=== PATIENT | male | born 1935 | race Caucasian/White ===

== ENCOUNTER 2016-10-06 13:23 | Inpatient (IN) | payer OTHER, MEDICARE ==
[~2016-10-06] VITALS: Ht 180.3 cm; Wt 68.6 kg
[2016-10-06] VITALS (23 sets, daily range): BP systolic 110–180; BP diastolic 58–85; PULSE 82–90; RESP 18–29; TEMP 97.7–97.9; O2SAT 80–100
[~2016-10-06 13:23] MED LIST: ATEN1TAB73 PO; ATEN50TA PO; B COTAB6 PO; CAPT50TA PO; CHEL50TA; DUONI NEB; FURO20TA PO; GINK120T2; MILK140C; OMEG100010; OMEG5CAP; POTA-243 PO; ROSU10 PO; VITA10007 PO; VITA400C5; WARF-21 PO; WARF-23 PO
[2016-10-06] MEDS ORDERED: RESP: ALBUTEROL 2.5 MG/IPRATROPIUM 0.5 MG NEB (SCH) ONE (13:33)
[2016-10-06] MEDS: RESP: ALBUTEROL 2.5 MG/IPRATROPIUM 0.5 MG NEB (SCH) INH ×4 (13:53→23:21)
--- NOTE | 2016-10-06 13:59 | PD ---
HPI Chief Complaint: Respiratory Distress Time Seen by Provider: 13:29 Travel History International Travel<30 days: No Contact w/Intl Traveler<30days: No Traveled to known affect area: No History of Present Illness HPI 81yo M with PMH of afib on coumadin, COPD on home O2, ?CHF brought in by [facility] initially for fall and generalized weakness. When they arrived, he looked tachypneic and saturating in the mid 80s so they gave him 1 duoneb with improvement. Pt saturating in the mid 80s with RR at 40 breaths per minute initially and placed on 6L NC with improvement of O2 sat to 94%. Pt placed on BIPAP machine with improvement of RR. PFSH Past Medical History Hx Anticoagulant Therapy: Yes (WARFARIN) Atrial Fibrillation: Yes Cancer: No Cardiovascular Problems: Yes High Cholesterol: Yes Chemotherapy: No Congestive Heart Failure: Yes Cerebrovascular Accident: Yes Diabetes: No Diminished Hearing: No Endocrine: No Genitourinary: No Hypertension: Yes Immune Disorder: No Musculoskeletal: Yes (weakness) Neurologic: Yes (hx of stroke) Psychiatric: No Reproductive: No Respiratory: No (this admission ) Past Surgical History Other Surgery: Yes Social History Alcohol Use: Yes (WINE, MIX DRINKS PER NIGHT APPROX 2-3 GLASSES A DAY) Tobacco Use: No Substance Use: Yes (MARIJAUNA US AT NIGHT) Allergies-Medications (Allergen,Severity, Reaction): Coded Allergies: No Known Allergies (Verified , 04/12/16) Reported Meds & Prescriptions Reported Meds & Active Scripts Active Reported Ginkgo Biloba 120 Mg Tab Souris 3 1000 mg (Souris-3 Fatty Acids) 1 Cap Cap Milk Thistle 140 Mg Cap BID Warfarin 5 Mg Tab 5 Mg PO DAILY Klor-Con 10 (Potassium Chloride) 10 Meq Tab 10 Meq PO DAILY Atenolol 50 Mg Tab 50 Mg PO BID Captopril 50 Mg Tab 50 Mg PO TIDAC Take 1 hour before meals. Furosemide 20 Mg Tab 20 Mg PO DAILY Review of Systems Except as stated in HPI: all other systems reviewed are Neg Physical Exam Narrative GENERAL: 81yo M in moderate distress. SKIN: Warm and dry. HEAD: +Ecchymoses midparietal scalp. EYES: Pupils equal and round. No scleral icterus. No injection or drainage. ENT: No nasal bleeding or discharge. Mucous membranes pink and moist. NECK: Trachea midline. No JVD. CARDIOVASCULAR: Regular rate and rhythm. No murmur appreciated. RESPIRATORY: + accessory muscle use. Decreased breath sounds in lower lungs bilaterally. RR: 40 breaths per minute. GASTROINTESTINAL: Abdomen soft, non-tender, nondistended. No rebound tenderness or guarding. : +Scrotal edema. MUSCULOSKELETAL: No obvious deformities. No clubbing. No cyanosis. +Bilateral lower ext edema. NEUROLOGICAL: Awake and alert. No obvious cranial nerve deficits. Motor grossly within normal limits. Normal speech. Data Data Last Documented VS Vital Signs Date Time Temp Pulse Resp B/P Pulse Ox O2 Delivery O2 Flow Rate FiO2 10/06/16 15:45 88 20 149/70 94 BiPAP 10/06/16 14:23 35 10/06/16 13:39 2 10/06/16 13:31 97.9 Orders Albuterol-Ipratropium Neb (Duoneb Neb) (10/06/16 13:33) Complete Blood Count With Diff (10/06/16 13:49) Basic Metabolic Panel (Bmp) (10/06/16 13:49) B-Type Natriuretic Peptide (10/06/16 13:49) Act Partial Throm Time (Ptt) (10/06/16 13:49) Prothrombin Time / Inr (Pt) (10/06/16 13:49) Magnesium (Mg) (10/06/16 13:49) Ckmb (Isoenzyme) Profile (10/06/16 13:49) Troponin I (10/06/16 13:49) Arterial Blood Gas (Abg) (10/06/16 13:49) Urinalysis - C+S If Indicated (10/06/16 13:49) Blood Culture (10/06/16 13:49) Iv Access Insert/Monitor (10/06/16 13:49) Ecg Monitoring (10/06/16 13:49) Oximetry (10/06/16 13:49) Oxygen Administration (10/06/16 13:49) Chest, Single Ap (10/06/16 13:49) Sodium Chloride 0.9% Flush (Ns Flush) (10/06/16 14:00) Methylprednisolone So Succ Inj (Solumedr (10/06/16 14:00) Albuterol-Ipratropium Neb (Duoneb Neb) (10/06/16 14:00) Resp Bipap / Cpap Non Invas Vt (10/06/16 13:49) Ct Brain W/O Iv Contrast(Rout) (10/06/16 ) Ct Cerv Spine W/O Contrast (10/06/16 ) Lactic Acid Sepsis Protocol (10/06/16 13:51) Furosemide Inj (Lasix Inj) (10/06/16 14:15) Electrocardiogram (10/06/16 13:40) Admit Order (Ed Use Only) (10/06/16 16:07) Arterial Blood Gas (Abg) (10/06/16 ) Labs Laboratory Tests Test 10/06/16 10/06/16 10/06/16 13:51 14:10 15:10 White Blood Count 6.4 TH/MM3 Red Blood Count 3.75 MIL/MM3 Hemoglobin 12.3 GM/DL Hematocrit 38.2 % Mean Corpuscular Volume 101.8 FL Mean Corpuscular Hemoglobin 32.7 PG Mean Corpuscular Hemoglobin 32.1 % Concent Red Cell Distribution Width 15.4 % Platelet Count 101 TH/MM3 Mean Platelet Volume 8.8 FL Neutrophils (%) (Auto) 76.8 % Lymphocytes (%) (Auto) 10.7 % Monocytes (%) (Auto) 8.3 % Eosinophils (%) (Auto) 1.6 % Basophils (%) (Auto) 2.6 % Neutrophils # (Auto) 4.9 TH/MM3 Lymphocytes # (Auto) 0.7 TH/MM3 Monocytes # (Auto) 0.5 TH/MM3 Eosinophils # (Auto) 0.1 TH/MM3 Basophils # (Auto) 0.2 TH/MM3 CBC Comment DIFF FINAL Differential Comment Prothrombin Time 14.2 SEC Prothromb Time International 1.3 RATIO Ratio Activated Partial 30.1 SEC Thromboplast Time Sodium Level 146 MEQ/L Potassium Level 4.6 MEQ/L Chloride Level 102 MEQ/L Carbon Dioxide Level 39.7 MEQ/L Anion Gap 4 MEQ/L Blood Urea Nitrogen 11 MG/DL Creatinine 0.77 MG/DL Estimat Glomerular Filtration 97 ML/MIN Rate Random Glucose 101 MG/DL Lactic Acid Level 1.1 mmol/L Calcium Level 8.4 MG/DL Magnesium Level 2.5 MG/DL Total Creatine Kinase 73 U/L Troponin I 0.03 NG/ML B-Type Natriuretic Peptide 154 PG/ML Prealbumin 12 MG/DL Blood Gas Puncture Site LT RADIAL Blood Gas Patient Temperature 98.6 Blood Gas HCO3 38 mmol/L Blood Gas Base Excess 11.4 mmol/L Blood Gas Oxygen Saturation 89 % Arterial Blood pH 7.31 Arterial Blood Partial 78 mmHG Pressure CO2 Arterial Blood Partial 64 mmHG Pressure O2 Arterial Blood Oxygen Content 15.0 Vol % Arterial Blood 2.1 % Carboxyhemoglobin Arterial Blood Methemoglobin 1.0 % Blood Gas Hemoglobin 12.0 G/DL Oxygen Delivery Device BIPAP Blood Gas Ventilator Setting 15 IPAP/5 EPAP Blood Gas Inspired Oxygen 35 % Urine Collection Type CLEAN CATCH Urine Color YELLOW Urine Turbidity CLEAR Urine pH 5.5 Urine Specific [place] 1.012 Urine Protein NEG mg/dL Urine Glucose (UA) NEG mg/dL Urine Ketones NEG mg/dL Urine Occult Blood TRACE Urine Nitrite NEG Urine Bilirubin NEG Urine Leukocyte Esterase NEG Urine RBC 4-9 /hpf Urine Squamous Epithelial 0-5 /hpf Cells Microscopic Urinalysis Comment CULT NOT INDICATED Urine Collection Time 15:10 MDM Medical Decision Making Medical Screen Exam Complete: Yes Emergency Medical Condition: Yes Interpretation(s) EKG: Afib at 88bpm. RAD. RBBB. Differential Diagnosis CHF exacerbation vs. COPD exacerbation vs. Pneumonia vs. ACS vs. ICH Narrative Course 81yo M presents to the ED s/p fall. Pt found to be in respiratory distress and placed on BIPAP immediately. Pt improving on BIPAP with RR improving to 30 from 40. Pt has marked edema and crackles on lungs with decreased breath sounds so lasix 40mg IV given. Labs reviewed, no leukocytosis. H/H low at 12.3 /38.2. Lactic acid 1.1. BNP 154. Troponin 0.03. CXR showed opacification of right hemithorax. Combination of right lung atelectasis and large right effusion. As per our record, pt had right thoracentesis 08/05/16 with removal of 2000cc of serosanguinous fluid. As per daughter, pt gets thoracentesis every 3 months. As per our records, pt also had thoracentesis 04/14/16 with removal of 2.2 liters and bronchoscopy 04/17/16 that was negative. UA negative. INR subtherapeutic at 1.3. Thoracentesis was performed at bedside by patient financial representative Dr. Guerrero with removal of 3200cc of fluid. Sign out to next team to follow up post procedure CXR. Critical Care Narrative Aggregate critical care time was 90 minutes. Time to perform other separately billable procedures was not included in the critical care time. My time did not include minutes spent treating any other patients simultaneously or on activities that did not directly contribute to the patient's treatment. The services I provided to this patient were to treat and/or prevent clinically significant deterioration that could result in: cardiovascular collapse or . I provided critical care services requiring my management, as noted below: Chart data review, documentation time, medication orders and management, vital sign assessments/reviewing monitor data, ordering and reviewing lab tests, ordering and interpreting/reviewing x-rays and diagnostic studies, care of the patient and discussion of the patient with the admitting physicians. Diagnosis Primary Impression: Pleural effusion Admitting Information Admitting Physician Requests: Stephanie Santos DO Oct 06, 2016 13:59
[2016-10-06] MEDS ORDERED: SODIUM CHLORIDE 0.9% FLUSH 5 ML FLUSH IVF PRN (14:00)
[2016-10-06] MEDS ORDERED: methylPREDNISolone SOD SUCC 125 MG/2 ML VIAL IVP ONE (14:00)
[2016-10-06 14:14] LABS: AUTOMATED NEUTROPHIL # 4.9 TH/MM3 (1.8-7.7); BASOPHIL # 0.2 TH/MM3 (0-0.2); BASOPHIL % 2.6 % (0.0-2.0); EOSINOPHIL # 0.1 TH/MM3 (0-0.4); EOSINOPHIL % 1.6 % (0.0-4.0); HEMATOCRIT 38.2 % (39.0-51.0); LYMPH % 10.7 % (9.0-44.0); LYMPHOCYTE # 0.7 TH/MM3 (1.0-4.8); MEAN CELL VOLUME 101.8 FL (80.0-100.0); MEAN CORPUSCULAR HEMOGLOBIN 32.7 PG (27.0-34.0); MEAN CORPUSCULAR HGB CONC 32.1 % (32.0-36.0); MONO % 8.3 % (0.0-8.0); NEUT % 76.8 % (16.0-70.0); PLATELET COUNT 101 TH/MM3 (150-450); RED BLOOD COUNT 3.75 MIL/MM3 (4.50-5.90); RED CELL DISTRIBUTION WIDTH 15.4 % (11.6-17.2); WHITE BLOOD COUNT 6.4 TH/MM3 (4.0-11.0)
[2016-10-06 14:15] LABS: HEMO FLAGS DIFF FINAL
[2016-10-06] MEDS ORDERED: FUROSEMIDE 40 MG/4 ML VIAL IV PUSH ONE (14:15)
[2016-10-06 14:18] LABS: BLOOD GAS BASE EXCESS 11.4 mmol/L (-2-2); BLOOD GAS CARBOXYHEMOGLOBIN 2.1 % (0-4); BLOOD GAS HCO3 38 mmol/L (22-26); BLOOD GAS O2 HGB SATURATION 89 % (90-100); BLOOD GAS PCO2 78 mmHG (38-42); BLOOD GAS PO2 64 mmHG (61-120); CRITICAL VALUE YES; DRAW SITE LT RADIAL; FIO2 35 %; NUMBER OF ARTERIAL PUNCTURES 1; OXYGEN DEVICE BIPAP; STAT YES; TEMP CORR TO 98.6; ULNAR PULSE PRESENT
[2016-10-06 14:20] LABS: VENT SETTINGS 15 IPAP/5 EPAP
[2016-10-06 14:21] LABS: POTASSIUM 4.6 MEQ/L (3.5-5.1)
[2016-10-06 14:24] LABS: BICARBONATE 39.7 MEQ/L (21.0-32.0); MAGNESIUM 2.5 MG/DL (1.5-2.5)
[2016-10-06 14:28] LABS: APTT (PATIENT) 30.1 SEC (24.3-30.1); INTERNATIONAL NORMALIZED RATIO 1.3 RATIO; PROTHROMBIN TIME - PATIENT 14.2 SEC (9.8-11.6)
[2016-10-06 15:20] LABS: BLOOD, URINE TRACE (NEG); GLUCOSE,URINE NEG (NEG); KETONE, URINE NEG (NEG); NITRITE,URINE NEG (NEG); PH, URINE 5.5 (5.0-8.5)
[2016-10-06 15:26] LABS: METHOD OF COLLECTION CLEAN CATCH
[2016-10-06 15:27] LABS: COMMENT (UR) CULT NOT INDICATED; CULTURE IF INDICATED CULT NOT INDICATED; SQUAMOUS EPITHELIAL CELL URINE 0-5 /hpf (0-5); URINE COLOR YELLOW (YELLW/STRAW)
--- NOTE | 2016-10-06 15:48 | RADHPO ---
EXAM DATE/TIME: 10/06/2016 15:12 [facility] COMPARISON: No previous studies available for comparison. INDICATIONS : Short of breath MEDICAL HISTORY : None. SURGICAL HISTORY : None. ENCOUNTER: Initial ACUITY: 1 day PAIN SCORE: 0/10 LOCATION: Bilateral chest FINDINGS: A single view of the chest demonstrates opacification of the right hemithorax with large right effusi on. There is also some left basilar opacity. No pneumothorax. CONCLUSION: 1. Opacification of right hemithorax which has worsened since exam from earlier today. This probably represents a combination of right lung atelectasis and large right effusion. Mild left basilar airspa ce disease. Chaka Campos MD on October 06, 2016 at 15:45 Board Certified Radiologist. This report was verified electronically.
--- NOTE | 2016-10-06 16:55 | RADHPO ---
EXAM DATE/TIME: 10/06/2016 16:27 [facility] COMPARISON: CT BRAIN W/O CONTRAST, April 12, 2016, 10:06. INDICATIONS : Fall today, general weakness. RADIATION DOSE: 62.12 CTDIvol (mGy) MEDICAL HISTORY : Stroke. Congestive heart failure. Chronic obstructive pulmonary disease. SURGICAL HISTORY : None. ENCOUNTER: Initial ACUITY: 1 day PAIN SCALE: 4/10 LOCATION: Bilateral head TECHNIQUE: Multiple contiguous axial images were obtained of the head. Using automated exposure control and adj ustment of the mA and/or kV according to patient size, radiation dose was kept as low as reasonably a chievable to obtain optimal diagnostic quality images. FINDINGS: No acute mass, hemorrhage or midline shift. No hydrocephalus. Small chronic lacunar infarct anterior limb right internal capsule stable since prior study. There is cortical volume loss and white matter ischemic changes. No recent infarct identified. CONCLUSION: 1. No acute intracranial abnormalities. Stable small lacunar infarct on the right as above. Chaka Campos MD on October 06, 2016 at 16:52 Board Certified Radiologist. This report was verified electronically.
--- NOTE | 2016-10-06 17:04 | RADHPO ---
EXAM DATE/TIME: 10/06/2016 16:27 [facility] COMPARISON: No previous studies available for comparison. INDICATIONS : Fall today, general weakness. RADIATION DOSE: 26.22 CTDIvol (mGy) MEDICAL HISTORY : Stroke. Chronic obstructive pulmonary disease. Congestive heart failure. SURGICAL HISTORY : None. ENCOUNTER: Initial ACUITY: 1 day PAIN SCALE: 2/10 LOCATION: Bilateral neck TECHNIQUE: Volumetric scanning of the cervical spine was performed. Multiplanar reconstructions in the sagittal, coronal and oblique axial planes were performed. Using automated exposure control and adjustment o f the mA and/or kV according to patient size, radiation dose was kept as low as reasonably achievable to obtain optimal diagnostic quality images. FINDINGS: VERTEBRAE: Normal vertebral body height. ALIGNMENT: No evidence of subluxation. C2-C3: The bony spinal canal is normal in size. No evidence of disc bulge or herniation. The neural forami na are bilaterally patent. C3-C4: The bony spinal canal is normal in size. No evidence of disc bulge or herniation. The neural forami na are bilaterally patent. C4-C5: The bony spinal canal is normal in size. No evidence of disc bulge or herniation. The neural forami na are bilaterally patent. C5-C6: The bony spinal canal is normal in size. No evidence of disc bulge or herniation. The neural forami na are bilaterally patent. C6-C7: The bony spinal canal is normal in size. No evidence of disc bulge or herniation. The neural forami na are bilaterally patent. C7-T1: The bony spinal canal is normal in size. No evidence of disc bulge or herniation. The neural forami na are bilaterally patent. CONCLUSION: 1. No acute findings in the cervical spine. Moderate degenerative disc disease but no significant can al stenosis. Large right pleural effusion noted at the right lung apex. Chaka Campos MD on October 06, 2016 at 17:00 Board Certified Radiologist. This report was verified electronically.
[2016-10-06 17:30] LABS: BLOOD GAS BASE EXCESS 12.3 mmol/L (-2-2); BLOOD GAS CARBOXYHEMOGLOBIN 2.2 % (0-4); BLOOD GAS HCO3 39 mmol/L (22-26); BLOOD GAS METHEMOGLOBIN 1.1 % (0-2); BLOOD GAS O2 HGB SATURATION 90 % (90-100); BLOOD GAS OXYGEN CONTENT 15.2 Vol % (12.0-20.0); BLOOD GAS PCO2 76 mmHG (38-42); BLOOD GAS PO2 69 mmHG (61-120); CRITICAL VALUE YES; FIO2 40 %; OXYGEN DEVICE BIPAP; TEMP CORR TO 98.6
[2016-10-06 17:31] LABS: DRAW SITE LT RADIAL; NUMBER OF ARTERIAL PUNCTURES 1; STAT NO; ULNAR PULSE PRESENT; VENT SETTINGS 15 IPAP/5 EPAP
--- NOTE | 2016-10-06 17:44 | HHI.HP ---
[facility] Service Critical Care Medicine Primary Care Physician Jayce De Souza MD Admission Diagnosis Hypoxic respiratory failure secondary to right pleural effusion Diagnosis: Travel History International Travel<30 Days: No Contact w/Intl Traveler <30 Da: No Traveled to Known Affected Are: No History of Present Illness 81yo M with PMH of afib on coumadin, COPD on home O2, ?CHF brought in by [facility] initially for fall and generalized weakness. When they arrived, he looked tachypneic and saturating in the mid 80s so they gave him 1 duoneb with improvement. Pt saturating in the mid 80s with RR at 40 breaths per minute initially and placed on 6L NC with improvement of O2 sat to 94%. Pt placed on BIPAP machine with minimal improvement of RR.CXR - large pleural effussion on Right Review of Systems ROS Unable to obtain, patient on FM BiPAP Past Family Social History Allergies: Coded Allergies: No Known Allergies (Verified , 04/12/16) Past Medical History Hypertension Hyperlipidemia Chronic atrial fibrillation Congestive heart failure, unknown whether systolic or diastolic Skin cancer Past Surgical History Left knee surgery 1960 when he was in the Reported Medications Reported Meds & Active Scripts Active Reported Ginkgo Biloba 120 Mg Tab Colrain 3 1000 mg (Colrain-3 Fatty Acids) 1 Cap Cap Milk Thistle 140 Mg Cap BID Warfarin 5 Mg Tab 5 Mg PO DAILY Klor-Con 10 (Potassium Chloride) 10 Meq Tab 10 Meq PO DAILY Atenolol 50 Mg Tab 50 Mg PO BID Captopril 50 Mg Tab 50 Mg PO TIDAC Take 1 hour before meals. Furosemide 20 Mg Tab 20 Mg PO DAILY Active Ordered Medications Current Medications Medications (Trade) Dose Ordered Sig/Sonia Route PRN Reason Start Time Stop Time Status Last Admin Dose Admin IV Flush (NS Flush) 2 ml UNSCH PRN IV FLUSH FLUSH AFTER USING IV ACCESS 10/06/16 17:45 IV Flush (NS Flush) 2 ml BID IV FLUSH 10/06/16 21:00 Acetaminophen (Tylenol) 650 mg Q6H PRN PO PAIN 1-5 AND/OR FEVER >101F 10/06/16 17:45 Morphine Sulfate (Morphine Inj) 2 mg Q2H PRN IV PAIN SCALE 6 TO 10 10/06/16 17:45 Famotidine (Pepcid Inj) 20 mg Q12HR IV PUSH 10/06/16 21:00 Lorazepam (Ativan Inj) 2 mg Q4H PRN IV Agitation/Sedation 10/06/16 17:45 Ondansetron HCl (Zofran Inj) 4 mg Q6H PRN IV NAUSEA OR VOMITING 10/06/16 17:45 Metoclopramide HCl (Reglan Inj) 10 mg Q6H PRN IV NAUSEA OR VOMITING 10/06/16 17:45 Docusate Sodium (Colace) 100 mg BID PO 10/06/16 21:00 Zolpidem Tartrate (Ambien) 5 mg HS PRN PO INSOMNIA 10/06/16 17:45 Heparin Sodium (Porcine) (Heparin Inj) 5,000 units Q8HR SQ 10/06/16 22:00 Miscellaneous Information 1 Q361D XX 10/06/16 17:45 Chlorhexidine Gluconate (Chlorhexidine 2% Cloth) 3 pack Taper DAILY@04 TOP 10/07/16 04:00 10/03/17 03:59 Chlorhexidine Gluconate (Chlorhexidine 2% Cloth) 3 pack UNSCH PRN TOP HYGIENIC CARE 10/06/16 17:45 Atenolol (Tenormin) 50 mg BID PO 10/06/16 21:00 Captopril (Capoten) 50 mg TIDAC PO 10/07/16 08:00 Furosemide (Lasix) 20 mg DAILY PO 10/07/16 09:00 Warfarin Sodium 5 mg 5 mg DAILY@16 PO 10/07/16 16:00 Pharmacy Profile Note (Coumadin Consult Pharmacy) 0 ml @ 0 mls/hr UNSCH OTHER 10/06/16 17:45 Family History noncontributory Physical Exam Vital Signs Vital Signs Date Time Temp Pulse Resp B/P Pulse Ox O2 Delivery O2 Flow Rate FiO2 10/06/16 16:51 88 29 169/85 97 BiPAP 40 10/06/16 16:19 Venturi Mask 35 10/06/16 15:45 88 20 149/70 94 BiPAP 10/06/16 15:15 88 20 175/77 BiPAP 10/06/16 14:45 82 20 141/73 96 BiPAP 10/06/16 14:23 100 BiPAP 35 10/06/16 14:21 85 19 114/65 100 BiPAP 10/06/16 14:08 99 BiPAP 45 10/06/16 13:45 96 50 10/06/16 13:40 98 BiPAP 50 10/06/16 13:39 24 82 Nasal Cannula 2 10/06/16 13:31 97.9 86 26 180/81 82 10/06/16 13:30 80 Nasal Cannula 2.00 Physical Exam GENERAL: frail elderly patient on FM BiPAP. SKIN: Warm and dry. HEAD: Normocephalic. EYES: No scleral icterus. No injection or drainage. NECK: Supple, trachea midline. No JVD or lymphadenopathy. CARDIOVASCULAR: Regular rate and rhythm without murmurs, gallops, or rubs. RESPIRATORY: Breath sounds equal bilaterally. No accessory muscle use. GASTROINTESTINAL: Abdomen soft, non-tender, nondistended. MUSCULOSKELETAL: No cyanosis, or edema. BACK: Nontender without obvious deformity. No CVA tenderness. Laboratory Laboratory Tests Test 10/06/16 10/06/16 10/06/16 10/06/16 13:51 14:10 15:10 17:22 White Blood Count 6.4 Red Blood Count 3.75 Hemoglobin 12.3 Hematocrit 38.2 Mean Corpuscular Volume 101.8 Mean Corpuscular Hemoglobin 32.7 Mean Corpuscular Hemoglobin 32.1 Concent Red Cell Distribution Width 15.4 Platelet Count 101 Mean Platelet Volume 8.8 Neutrophils (%) (Auto) 76.8 Lymphocytes (%) (Auto) 10.7 Monocytes (%) (Auto) 8.3 Eosinophils (%) (Auto) 1.6 Basophils (%) (Auto) 2.6 Neutrophils # (Auto) 4.9 Lymphocytes # (Auto) 0.7 Monocytes # (Auto) 0.5 Eosinophils # (Auto) 0.1 Basophils # (Auto) 0.2 CBC Comment DIFF FINAL Differential Comment Prothrombin Time 14.2 Prothromb Time International 1.3 Ratio Activated Partial 30.1 Thromboplast Time Sodium Level 146 Potassium Level 4.6 Chloride Level 102 Carbon Dioxide Level 39.7 Anion Gap 4 Blood Urea Nitrogen 11 Creatinine 0.77 Estimat Glomerular Filtration 97 Rate Random Glucose 101 Lactic Acid Level 1.1 Calcium Level 8.4 Magnesium Level 2.5 Total Creatine Kinase 73 Troponin I 0.03 B-Type Natriuretic Peptide 154 Blood Gas Puncture Site LT RADIAL LT RADIAL Blood Gas Patient Temperature 98.6 98.6 Blood Gas HCO3 38 39 Blood Gas Base Excess 11.4 12.3 Blood Gas Oxygen Saturation 89 90 Arterial Blood pH 7.31 7.33 Arterial Blood Partial 78 76 Pressure CO2 Arterial Blood Partial 64 69 Pressure O2 Arterial Blood Oxygen Content 15.0 15.2 Arterial Blood 2.1 2.2 Carboxyhemoglobin Arterial Blood Methemoglobin 1.0 1.1 Blood Gas Hemoglobin 12.0 12.0 Oxygen Delivery Device BIPAP BIPAP Blood Gas Ventilator Setting 15 IPAP/5 EPAP 15 IPAP/5 EPAP Blood Gas Inspired Oxygen 35 40 Urine Collection Type CLEAN CATCH Urine Color YELLOW Urine Turbidity CLEAR Urine pH 5.5 Urine Specific [place] 1.012 Urine Protein NEG Urine Glucose (UA) NEG Urine Ketones NEG Urine Occult Blood TRACE Urine Nitrite NEG Urine Bilirubin NEG Urine Leukocyte Esterase NEG Urine RBC 4-9 Urine Squamous Epithelial 0-5 Cells Microscopic Urinalysis Comment CULT NOT INDICATED Urine Collection Time 15:10 Date/Time Procedure Status Source Growth 10/06/16 13:57 Aerobic Blood Culture Received Blood Peripheral Pending 10/06/16 13:57 Anaerobic Blood Culture Received Blood Peripheral Pending Result Diagram: 10/06/16 1351 10/06/16 1351 Imaging Last 24 hours Impressions Chest X-Ray 10/06/16 1349 Signed Impressions: Service Date/Time: Thursday, October 06, 2016 15:12 - CONCLUSION: 1. Opacification of right hemithorax which has worsened since exam from earlier today. This probably represents a combination of right lung atelectasis and large right effusion. Mild left basilar airspace disease. Chaka Campos MD Head CT 10/06/16 0000 Signed Impressions: Service Date/Time: Thursday, October 06, 2016 16:27 - CONCLUSION: 1. No acute intracranial abnormalities. Stable small lacunar infarct on the right as above. Chaka Campos MD Chest X-Ray 10/06/16 0000 Signed Impressions: Service Date/Time: Thursday, October 06, 2016 22:19 - CONCLUSION: 1. Placement of right chest tube with resolution of right pneumothorax. Small right effusion present. Chaka Campos MD Chest X-Ray 10/06/16 0000 Signed Impressions: Service Date/Time: Thursday, October 06, 2016 19:26 - CONCLUSION: 1. Status post right thoracentesis with moderate right-sided pneumothorax and patchy airspace disease in the right lung. Chaka Campos MD Cervical Spine CT 10/06/16 0000 Signed Impressions: Service Date/Time: Thursday, October 06, 2016 16:27 - CONCLUSION: 1. No acute findings in the cervical spine. Moderate degenerative disc disease but no significant canal stenosis. Large right pleural effusion noted at the right lung apex. Chaka Campos MD Assessment and Plan Assessment and Plan Respiratory failure - large pleural effussion - Thoracenthesis - Chemistry analysis to follow - Pulmonary consult - Duonebs History of CHF - ACEi - Diuretics A.Fib - Atenolo - Rate controlled - Pharmacy consult for coumadine Pneumothorax - iatrogenic post Thracentesis - CT by ED attending - appreciated - CXR to follow DVT/GI prophylaxis - Heparin subQ/coumadine/pepcid Critical Care: The total critical care time was 35 minutes. Time to perform other separately billable procedures was not included in the critical care time. Kyler Guerrero MD Oct 06, 2016 17:43
[2016-10-06] MEDS ORDERED: METOCLOPRAMIDE HCL 10 MG/2 ML VIAL IV PRN (17:45)
[2016-10-06] MEDS ORDERED: MISCELLANEOUS NURSING INFORMATION XX SCH (17:45)
[2016-10-06] MEDS ORDERED: RESP: ALBUTEROL 2.5 MG/IPRATROPIUM 0.5 MG NEB (PRN) INH (17:45)
[2016-10-06] MEDS ORDERED: SODIUM CHLORIDE 0.9% FLUSH 5 ML FLUSH IV FLUSH PRN (17:45)
[2016-10-06] MEDS ORDERED: CHLORHEXIDINE GLUCONATE 2 % 1 PACK (2 CLOTHS) TOP PRN (17:45)
[2016-10-06] MEDS ORDERED: LORazepam 2 MG/ML VIAL IV PRN (17:45)
[2016-10-06] MEDS ORDERED: ZOLPIDEM TARTRATE 5 MG TAB PO PRN (17:45)
[2016-10-06] MEDS ORDERED: MORPHINE SULFATE 4 MG/ML INJ IV PRN (17:45)
[2016-10-06] MEDS ORDERED: ONDANSETRON HCL 4 MG/2 ML VIAL IV PRN (17:45)
[2016-10-06] MEDS ORDERED: WARFARIN SOD 7.5 MG TAB PO ONE (18:15)
[2016-10-06 18:53] LABS: PLEURAL FLUID SPECIFIC GRAVITY 1.019
--- NOTE | 2016-10-06 20:11 | RADHPO ---
EXAM DATE/TIME: 10/06/2016 19:26 [facility] COMPARISON: No previous studies available for comparison. INDICATIONS : Short of breath/post thoracentesis. MEDICAL HISTORY : Hypercholesterolemia. Congestive heart failure. Chronic obstructive pulmonary disease. Stroke,A-f ib SURGICAL HISTORY : Right knee surgery ENCOUNTER: Initial ACUITY: 1 day PAIN SCORE: 4/10 LOCATION: Bilateral chest FINDINGS: Patient is status post right thoracentesis. Right pleural effusion has been mostly drained. There is a moderate size right pneumothorax remaining with some patchy airspace disease in right lung. Mild le ft basilar opacity. Cardiomegaly. CONCLUSION: 1. Status post right thoracentesis with moderate right-sided pneumothorax and patchy airspace disease in the right lung. Chaka Campos MD on October 06, 2016 at 20:08 Board Certified Radiologist. This report was verified electronically.
[2016-10-06] MEDS ORDERED: LIDOCAINE HCL 1% PF 30 ML VIAL INFIL ONE (20:30)
[2016-10-06 20:46] LABS: CHOLESTEROL, PLEURAL FLUID LESS THAN 50 MG/DL; TOTAL PROTEIN,PLEURAL FLUID 2.4 GM/DL
[2016-10-06] MEDS ORDERED: ONDANSETRON HCL 4 MG/2 ML VIAL IV PUSH ONE (21:15)
[2016-10-06] MEDS ORDERED: MORPHINE SULFATE 4 MG/ML INJ IV PUSH ONE (21:15)
[2016-10-06 22:30] LABS: INDIRECT BILIRUBIN 1.2 MG/DL (0.0-0.8); TOTAL BILIRUBIN ADULT 1.8 MG/DL (0.2-1.0)
--- NOTE | 2016-10-06 22:32 | RADHPO ---
EXAM DATE/TIME: 10/06/2016 22:19 [facility] COMPARISON: CHEST SINGLE AP, October 06, 2016, 19:26. INDICATIONS : Post chest tube insertion. MEDICAL HISTORY : Hypercholesterolemia. Congestive heart failure. Chronic obstructive pulmonary disease. SURGICAL HISTORY : Right knee surgery ENCOUNTER: Subsequent ACUITY: 1 day PAIN SCORE: 4/10 LOCATION: Bilateral chest FINDINGS: A single view of the chest demonstrates small caliber right chest tube. Resolution of previous right pneumothorax. There is right basilar airspace disease and a small right effusion. There is also left basilar airspace disease with cardiomegaly. CONCLUSION: 1. Placement of right chest tube with resolution of right pneumothorax. Small right effusion present. Chaka Campos MD on October 06, 2016 at 22:29 Board Certified Radiologist. This report was verified electronically.
--- NOTE | 2016-10-06 22:39 | PD ---
Physical Exam Date Seen by Provider: Oct 06, 2016 Time Seen by Provider: 20:00 Narrative accepted for follow up of post procedure CXR; patient is admitted GENERAL: Elderly frail-appearing male with BiPAP in place no acute distress no respiratory distress SKIN: Warm and dry. HEAD: Normocephalic. EYES: No scleral icterus. No injection or drainage. NECK: Supple, trachea midline. No JVD or lymphadenopathy. CARDIOVASCULAR: Regular rate and rhythm without murmurs, gallops, or rubs. RESPIRATORY: Breath sounds equal bilaterally to anterior auscultation. No accessory muscle use. Data Data Last Documented VS Vital Signs Date Time Temp Pulse Resp B/P Pulse Ox O2 Delivery O2 Flow Rate FiO2 10/06/16 15:45 88 20 149/70 94 BiPAP 10/06/16 14:23 35 10/06/16 13:39 2 10/06/16 13:31 97.9 Orders Albuterol-Ipratropium Neb (Duoneb Neb) (10/06/16 13:33) Complete Blood Count With Diff (10/06/16 13:49) Basic Metabolic Panel (Bmp) (10/06/16 13:49) B-Type Natriuretic Peptide (10/06/16 13:49) Act Partial Throm Time (Ptt) (10/06/16 13:49) Prothrombin Time / Inr (Pt) (10/06/16 13:49) Magnesium (Mg) (10/06/16 13:49) Ckmb (Isoenzyme) Profile (10/06/16 13:49) Troponin I (10/06/16 13:49) Arterial Blood Gas (Abg) (10/06/16 13:49) Urinalysis - C+S If Indicated (10/06/16 13:49) Blood Culture (10/06/16 13:49) Iv Access Insert/Monitor (10/06/16 13:49) Ecg Monitoring (10/06/16 13:49) Oximetry (10/06/16 13:49) Oxygen Administration (10/06/16 13:49) Chest, Single Ap (10/06/16 13:49) Sodium Chloride 0.9% Flush (Ns Flush) (10/06/16 14:00) Methylprednisolone So Succ Inj (Solumedr (10/06/16 14:00) Albuterol-Ipratropium Neb (Duoneb Neb) (10/06/16 14:00) Resp Bipap / Cpap Non Invas Vt (10/06/16 13:49) Ct Brain W/O Iv Contrast(Rout) (10/06/16 ) Ct Cerv Spine W/O Contrast (10/06/16 ) Lactic Acid Sepsis Protocol (10/06/16 13:51) Furosemide Inj (Lasix Inj) (10/06/16 14:15) Electrocardiogram (10/06/16 13:40) Admit Order (Ed Use Only) (10/06/16 16:07) Arterial Blood Gas (Abg) (10/06/16 ) Labs Laboratory Tests Test 10/06/16 10/06/16 10/06/16 13:51 14:10 15:10 White Blood Count 6.4 TH/MM3 Red Blood Count 3.75 MIL/MM3 Hemoglobin 12.3 GM/DL Hematocrit 38.2 % Mean Corpuscular Volume 101.8 FL Mean Corpuscular Hemoglobin 32.7 PG Mean Corpuscular Hemoglobin 32.1 % Concent Red Cell Distribution Width 15.4 % Platelet Count 101 TH/MM3 Mean Platelet Volume 8.8 FL Neutrophils (%) (Auto) 76.8 % Lymphocytes (%) (Auto) 10.7 % Monocytes (%) (Auto) 8.3 % Eosinophils (%) (Auto) 1.6 % Basophils (%) (Auto) 2.6 % Neutrophils # (Auto) 4.9 TH/MM3 Lymphocytes # (Auto) 0.7 TH/MM3 Monocytes # (Auto) 0.5 TH/MM3 Eosinophils # (Auto) 0.1 TH/MM3 Basophils # (Auto) 0.2 TH/MM3 CBC Comment DIFF FINAL Differential Comment Prothrombin Time 14.2 SEC Prothromb Time International 1.3 RATIO Ratio Activated Partial 30.1 SEC Thromboplast Time Sodium Level 146 MEQ/L Potassium Level 4.6 MEQ/L Chloride Level 102 MEQ/L Carbon Dioxide Level 39.7 MEQ/L Anion Gap 4 MEQ/L Blood Urea Nitrogen 11 MG/DL Creatinine 0.77 MG/DL Estimat Glomerular Filtration 97 ML/MIN Rate Random Glucose 101 MG/DL Lactic Acid Level 1.1 mmol/L Calcium Level 8.4 MG/DL Magnesium Level 2.5 MG/DL Total Creatine Kinase 73 U/L Troponin I 0.03 NG/ML B-Type Natriuretic Peptide 154 PG/ML Prealbumin 12 MG/DL Blood Gas Puncture Site LT RADIAL Blood Gas Patient Temperature 98.6 Blood Gas HCO3 38 mmol/L Blood Gas Base Excess 11.4 mmol/L Blood Gas Oxygen Saturation 89 % Arterial Blood pH 7.31 Arterial Blood Partial 78 mmHG Pressure CO2 Arterial Blood Partial 64 mmHG Pressure O2 Arterial Blood Oxygen Content 15.0 Vol % Arterial Blood 2.1 % Carboxyhemoglobin Arterial Blood Methemoglobin 1.0 % Blood Gas Hemoglobin 12.0 G/DL Oxygen Delivery Device BIPAP Blood Gas Ventilator Setting 15 IPAP/5 EPAP Blood Gas Inspired Oxygen 35 % Urine Collection Type CLEAN CATCH Urine Color YELLOW Urine Turbidity CLEAR Urine pH 5.5 Urine Specific [place] 1.012 Urine Protein NEG mg/dL Urine Glucose (UA) NEG mg/dL Urine Ketones NEG mg/dL Urine Occult Blood TRACE Urine Nitrite NEG Urine Bilirubin NEG Urine Leukocyte Esterase NEG Urine RBC 4-9 /hpf Urine Squamous Epithelial 0-5 /hpf Cells Microscopic Urinalysis Comment CULT NOT INDICATED Urine Collection Time 15:10 MDM Medical Record Reviewed: Yes Supervised Visit with HAKAN: No Interpretation(s) post procedure CXR: right pneumothorax cxr s/p procedure: FINDINGS: A single view of the chest demonstrates small caliber right chest tube. Resolution of previous right pneumothorax. There is right basilar airspace disease and a small right effusion. There is also left basilar airspace disease with cardiomegaly. CONCLUSION: 1. Placement of right chest tube with resolution of right pneumothorax. Small right effusion present. Chaka Campos MD on October 06, 2016 at 22:29 Board Certified Radiologist. This report was verified electronically. Differential Diagnosis please refer to Dr Corral's and Dr Guerrero's dictations Narrative Course accepted for follow up of post procedure CXR Procedures Procedure Narrative CHEST TUBE THORACOSTOMY: The right chest was prepped with Betadine and sterilely draped. The area of the fifth intercostal interspace was infiltrated with 1% lidocaine plain. A 1 centimeter incision was made with a scalpel at the fifth intercostal space. And a 10F pigtail catheter was inserted/placed, directed posteriorly and superiorly. Tube draining well. The pigtail catheter was secured with suture. Sterile seal dressing placed. Patient tolerated procedure well. Post procedure cxr obtained. Physician Communication Physician Communication case discussed with Dr Manzanares Diagnosis Primary Impression: Pleural effusion, right Additional Impressions: COPD (chronic obstructive pulmonary disease) Pneumothorax Admitting Information Admitting Physician Requests: Admit Jessie Jackson MD Oct 06, 2016 22:39
--- NOTE | 2016-10-06 23:08 | PD.PROCEDR ---
Procedure Note Procedure Thoracentesis A time-out was completed verifying correct patient, procedure, site, positioning , and special equipment if applicable. The patients right side was prepped and draped in a sterile manner after the appropriate infiltration level was confirmed by ultrasound. 1% lidocaine was used anesthetize the surrounding skin. A finder needle was then used to locate fluid and clear yellow fluid was obtained. A 10-blade scalpel used to make the incision. The thoracentesis catheter was then threaded without difficulty. The patient had 3200 ml of clear yellow fluid removed from right. A post-procedure chest x-ray was ordered and the fluid will be sent for several studies. Estimated Blood Loss: 1ml The patient tolerated the procedure well and there were no complications. CXR and chem analysis to follow Kyler Guerrero MD Oct 06, 2016 23:08
[2016-10-06] MEDS: ATENOLOL 50 MG TAB PO SCH (23:28)
[2016-10-06] MEDS: FAMOTIDINE 20 MG/2 ML VIAL IV PUSH SCH (23:28)
[2016-10-06] MEDS: HEPARIN SODIUM - SQ 10,000 UNITS/ML VIAL SQ SCH (23:28)
[2016-10-06] MEDS: SODIUM CHLORIDE 0.9% FLUSH 5 ML FLUSH IV FLUSH SCH (23:29)
[2016-10-06] MEDS: DOCUSATE SODIUM 100 MG CAP PO SCH (23:29)
[2016-10-06] MEDS: CHLORHEXIDINE GLUCONATE 2 % 1 PACK (2 CLOTHS) TOP SCH (23:30)
[2016-10-07] VITALS (27 sets, daily range): BP systolic 92–150; BP diastolic 30–72; PULSE 68–84; RESP 22–37; TEMP 97.7–98.7; O2SAT 93–100
[2016-10-07] MEDS: RESP: ALBUTEROL 2.5 MG/IPRATROPIUM 0.5 MG NEB (SCH) INH ×6 (04:05→23:05)
[2016-10-07] MEDS: HEPARIN SODIUM - SQ 10,000 UNITS/ML VIAL SQ SCH ×3 (05:20→21:56)
[2016-10-07 05:21] LABS: AUTOMATED NEUTROPHIL # 4.5 TH/MM3 (1.8-7.7); BASOPHIL % 0.1 % (0.0-2.0); HEMATOCRIT 36.2 % (39.0-51.0); HEMO FLAGS DIFF FINAL; LYMPH % 7.9 % (9.0-44.0); LYMPHOCYTE # 0.4 TH/MM3 (1.0-4.8); MEAN CELL VOLUME 101.4 FL (80.0-100.0); MEAN CORPUSCULAR HEMOGLOBIN 31.6 PG (27.0-34.0); MEAN CORPUSCULAR HGB CONC 31.2 % (32.0-36.0); MONO % 10.1 % (0.0-8.0); NEUT % 81.9 % (16.0-70.0); PLATELET COUNT 104 TH/MM3 (150-450); RED BLOOD COUNT 3.57 MIL/MM3 (4.50-5.90); RED CELL DISTRIBUTION WIDTH 14.9 % (11.6-17.2); WHITE BLOOD COUNT 5.5 TH/MM3 (4.0-11.0)
[2016-10-07] MEDS: CAPTOPRIL 50 MG TAB PO SCH ×3 (08:00→16:08)
[2016-10-07] MEDS: DOCUSATE SODIUM 100 MG CAP PO SCH ×2 (08:48→19:59)
[2016-10-07] MEDS: FUROSEMIDE 20 MG TAB PO SCH (08:48)
[2016-10-07] MEDS: ATENOLOL 50 MG TAB PO SCH ×2 (08:48→19:59)
[2016-10-07] MEDS: FAMOTIDINE 20 MG/2 ML VIAL IV PUSH SCH ×2 (08:49→20:00)
[2016-10-07] MEDS: SODIUM CHLORIDE 0.9% FLUSH 5 ML FLUSH IV FLUSH SCH ×2 (08:50→20:01)
--- NOTE | 2016-10-07 09:47 | EKG ---
Date Performed: 10/06/2016 Time Performed: 13:40:10 PTAGE: 81 years EKG: Atrial fibrillation Lead(s) unsuitable for analysis: V2 Right axis deviation Right bundle b ranch block Inferior/lateral ST-T changes are nonspecific Abnormal ECG Compared to prior tracing no s ignificant change PREVIOUS TRACING : 04/12/2016 10.00 DOCTOR: Jimi Patel Interpretating Date/Time 10/07/2016 09:45:09
[2016-10-07] MEDS ORDERED: CICL8SOL TOPICAL (10:14)
[2016-10-07 13:48] LABS: CHLORIDE 101 MEQ/L (98-107); POTASSIUM 4.1 MEQ/L (3.5-5.1); SODIUM (NA) 146 MEQ/L (136-145)
[2016-10-07 13:52] LABS: ANION GAP 5 MEQ/L (5-15); BICARBONATE 40.5 MEQ/L (21.0-32.0)
[2016-10-07] MEDS: ACETAMINOPHEN 325 MG TAB PO PRN ×2 (13:58→20:01)
[2016-10-07 15:09] LABS: ALKALINE PHOSPHATASE 82 U/L (45-117); ALT (GPT) 26 U/L (12-78); AST (GOT) 40 U/L (15-37); BLOOD UREA NITROGEN 24 MG/DL (7-18); GLOMERULAR FILTRATION RATE 64 ML/MIN (>89); TOTAL BILIRUBIN ADULT 1.1 MG/DL (0.2-1.0)
[2016-10-07] MEDS ORDERED: WARFARIN SOD 7.5 MG TAB PO ONE (16:00)
[2016-10-07] MEDS ORDERED: WARFARIN SOD 5 MG TAB PO SCH (16:00)
--- NOTE | 2016-10-07 16:27 | HHI.PR ---
Subjective Remarks Patient getting frustrated with his phone and wanting to get out of bed. Denies dyspnea. Objective Vitals Vital Signs Date Time Temp Pulse Resp B/P Pulse Ox O2 Delivery O2 Flow Rate FiO2 10/07/16 15:00 80 37 116/57 94 10/07/16 14:00 70 29 98/42 95 10/07/16 14:00 70 10/07/16 13:00 70 29 92/44 98 10/07/16 12:00 74 10/07/16 12:00 98.5 74 24 104/62 97 10/07/16 11:00 76 33 118/52 97 10/07/16 10:04 84 10/07/16 10:04 84 34 150/69 94 10/07/16 09:00 84 28 122/54 93 10/07/16 08:00 71 10/07/16 08:00 96 Nasal Cannula 3.00 10/07/16 07:59 98.7 70 30 115/55 98 10/07/16 07:56 94 Nasal Cannula 3.00 10/07/16 07:00 68 22 115/49 97 10/07/16 06:00 70 26 121/47 99 10/07/16 06:00 70 10/07/16 05:00 74 23 118/56 100 10/07/16 04:00 72 10/07/16 04:00 98.4 72 26 105/49 97 10/07/16 03:00 72 26 105/49 97 10/07/16 02:00 70 10/07/16 02:00 70 25 107/47 98 10/07/16 01:00 74 23 113/61 96 10/07/16 00:00 97.7 84 24 105/49 97 10/07/16 00:00 84 10/06/16 23:45 90 29 96 10/06/16 23:30 86 25 100 10/06/16 23:22 96 Nasal Cannula 4.00 10/06/16 23:15 82 10/06/16 22:42 97.7 83 29 143/63 100 10/06/16 21:50 84 18 122/61 100 BiPAP 40 10/06/16 21:44 86 22 110/58 100 BiPAP 40 10/06/16 21:20 98 40 10/06/16 20:50 88 20 132/79 96 BiPAP 40 10/06/16 19:56 97 40 10/06/16 19:10 90 20 96 BiPAP 40 10/06/16 18:50 82 20 152/72 96 BiPAP 40 10/06/16 17:35 97 BiPAP 10/06/16 17:35 28 95 BiPAP 40 10/06/16 17:20 99 40 10/06/16 16:51 88 29 169/85 97 BiPAP 40 I/O 10/06/16 10/06/16 10/06/16 10/07/16 10/07/16 10/07/16 07:00 15:00 23:00 07:00 15:00 23:00 Intake Total 240 ml 560 ml Output Total 1156 ml 304 ml 150 ml Balance -1156 ml -64 ml 410 ml Intake Oral 240 ml 560 ml Output Urine Total 1000 ml 160 ml 150 ml Chest Tube Drainage Total 156 ml 144 ml # Voids 5 # Bowel Movements 0 Result Diagram: 10/07/16 0421 10/07/16 1330 Objective Remarks GENERAL: Well-nourished, well-developed elderly male patient. SKIN: Warm and dry. HEAD: Normocephalic. EYES: No scleral icterus. No injection or drainage. NECK: Supple, trachea midline. No JVD or lymphadenopathy. CARDIOVASCULAR: Regular rate and rhythm without murmurs, gallops, or rubs. RESPIRATORY: Diminished lung sounds at right base. No accessory muscle use. GASTROINTESTINAL: Abdomen soft, non-tender, nondistended. EXTREMITIES: Chronic edema of the lower extremities. NEUROLOGICAL: Awake, alert, and oriented x 3. Non-focal. A/P Assessment and Plan -Acute respiratory failure, improved now on nasal cannula. -COPD with chronic CO2 retention. Continue duo nebs when necessary. -Large right pleural effusion status post thoracentesis on October 06 with 3200 ml of clear yellow fluid removed. -Right pneumothorax Post thoracentesis- now resolved with chest tube. Pulmonology following for chest tube management. -CHF, unknown EF. Continue IMAN inhibitor, diuretics. -A. fib. Continue atenolol. Coumadin. Pharmacy consult for Coumadin management, INR pending today. -Mildly AST elevation. Stable. -DVT prophylaxis with Coumadin. Genoveva Sparks MD Oct 07, 2016 16:27
[2016-10-07] MEDS: ALPRAZolam 0.25 MG TAB PO PRN (18:35)
[2016-10-08] VITALS (34 sets, daily range): BP systolic 114–173; BP diastolic 59–89; PULSE 76–100; RESP 19–47; TEMP 97.4–98.1; O2SAT 89–99
[2016-10-08] MEDS: ALPRAZolam 0.25 MG TAB PO PRN ×2 (00:02→22:23)
[2016-10-08] MEDS ORDERED: HALOPERIDOL LACTATE 5 MG/ML AMP IM PRN (00:45)
[2016-10-08] MEDS: CHLORHEXIDINE GLUCONATE 2 % 1 PACK (2 CLOTHS) TOP SCH (03:19)
[2016-10-08] MEDS: RESP: ALBUTEROL 2.5 MG/IPRATROPIUM 0.5 MG NEB (SCH) INH ×6 (03:33→22:56)
[2016-10-08] MEDS: HEPARIN SODIUM - SQ 10,000 UNITS/ML VIAL SQ SCH ×3 (06:24→21:24)
--- NOTE | 2016-10-08 06:53 | RADHPO ---
EXAM DATE/TIME: 10/08/2016 06:38 [facility] COMPARISON: CHEST SINGLE AP, October 06, 2016, 22:19. INDICATIONS : Short of breath. MEDICAL HISTORY : Congestive heart failure. Chronic obstructive pulmonary disease. Hypercholesterolemia. Stroke, A- fib SURGICAL HISTORY : Right knee surgery ENCOUNTER: Subsequent ACUITY: 2 days PAIN SCORE: 0/10 LOCATION: Bilateral chest FINDINGS: The cardiac silhouette is enlarged in transverse diameter. A right chest tube is in place. There is n o evidence of pneumothorax. There are findings of congestive heart failure with interstitial and alve olar opacity bilaterally. Moderate size bilateral pleural effusions are identified. CONCLUSION: 1. Cardiomegaly and findings of congestive heart failure. The findings are similar to the prior exam. Jimi Chavez MD on October 08, 2016 at 6:51 Board Certified Radiologist. This report was verified electronically.
--- NOTE | 2016-10-08 07:02 | MB ---
cc: SHEN LUIS DATE OF CONSULTATION 10/07/2016 REASON FOR CONSULTATION Pleural effusions and COPD. PRESENT ILLNESS This is an 81-year-old white male with a prior history of atrial fibrillation and COPD. He has been on home oxygen at two liters nasal cannula. The patient has had recurrent episodes of CHF as well as a pleural effusion on the right and he was desaturating into the 70s and 80s in spite of being on oxygen and thus was brought to the ER for evaluation. He was initially placed on a BiPAP, set up with minimal improvement and was noted to have a large pleural effusion on the right side. He subsequently had to have a chest tube placed for drainage of the pleural effusion and had over two liters drained from the right chest and now much better and on oxygen at three liters and seems to be comfortable. PAST HISTORY The patient's past history has included: 1. History for hypertension. 2. Atrial fibrillation 3. CHF 4. History of skin cancer. 5. Also has had left knee surgery in 1960. 6. The patient has had previous thoracentesis x3 on the right side and the pleural fluid was noted to be benign. MEDICATIONS List included: 1. Coumadin 5 mg a day 2. Klor-Con 10 mEq daily 3. Lasix 20 mg a day 4. Captopril 50 mg t.i.d. 5. Atenolol 15 mg b.i.d. 6. Lorazepam p.r.n. 1 mg 7. Ambien 5 mg at bedtime HABITS The patient has a prior history of smoking for over 30 years and then quit. No significant alcohol use. FAMILY HISTORY Essentially noncontributory. ALLERGIES No drug allergies are listed. REVIEW OF SYSTEMS The patient is a poor historian. He is on oxygen via nasal cannula. He does complain of some shortness of breath. He presently has a chest tube in place and has some chest discomfort at the site of the chest tube and he denies any headaches. He has had some postnasal drip and complains of leg swelling. No calf muscle pain. PHYSICAL EXAMINATION This elderly thinly built white male is pale and mildly dyspneic at rest. There is mild clubbing or cyanosis or icterus or lymphadenopathy. VITAL SIGNS: Blood pressure 130/60, pulse is 85, respirations are 18, temperature 98.2. HEENT: Head normocephalic. Pupils are reactive and equal. Tongue is dry. Throat is injected. Nasal mucosa is clear. NECK: Supple with mild venous distension at 45 degrees. Trachea midline. No thyroid enlargement. CHEST: Equal movements with decreased excursions. Breath sounds diminished at the bases with wheezes bilaterally. Crackles heard at the right lower chest. HEART: The heart sounds are irregular S1-S2. No murmur. No S3. ABDOMEN: Soft, protuberant. No masses or organomegaly or tenderness. Bowel sounds active. EXTREMITIES: Mild varicosities and decreased peripheral pulses and reflexes are 1+ with no gross motor deficits. NEUROLOGIC: Cranial nerves are grossly intact. RECTAL: Exam is deferred. SKIN: No lesions. IMPRESSION 1. Large right pleural effusion with right basilar atelectasis. 2. CHF with ASHD 3. Atrial fibrillation 4. Hypertension 5. COPD and possible basilar pneumonia. PLAN The patient has a chest tube in place which is draining the pleural effusion and once the drainage goes below 100 cc, we will plan a chest tube and hopefully discontinue the chest catheter. Repeat chest x-ray to be done in the a.m. The patient will be maintained on O2 at three liters nasal cannula, nebulized DuoNeb solution added q.i.d. Sputum will be sent for Gram stain and culture and continue with heparin subcu for prophylaxis. Antibiotic coverage will be added if he has any significant pathogens noted on sputum Gram stain. Thank you for this consultation. MD TRAN Pineda/PADMA /12:44 AM /6:50 AM
[2016-10-08] MEDS: CAPTOPRIL 50 MG TAB PO SCH ×4 (08:00→17:00)
[2016-10-08] MEDS: DOCUSATE SODIUM 100 MG CAP PO SCH ×2 (09:00→21:24)
[2016-10-08] MEDS: FUROSEMIDE 20 MG TAB PO SCH (09:00)
[2016-10-08] MEDS: ATENOLOL 50 MG TAB PO SCH ×2 (09:00→21:24)
[2016-10-08] MEDS: SODIUM CHLORIDE 0.9% FLUSH 5 ML FLUSH IV FLUSH SCH ×2 (09:01→21:24)
[2016-10-08] MEDS: FAMOTIDINE 20 MG/2 ML VIAL IV PUSH SCH ×2 (09:01→21:23)
--- NOTE | 2016-10-08 13:54 | HHI.PR ---
Subjective Remarks Patient seen and examined today with Dr. Sparks. Patient still respiratory failure requiring nonrebreather for O2 sat supplementation, still with chest tube in place with significant output. 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 Patient also became agitated last night requiring soft restraints and he received Haldol 2 mg IM this morning. Objective Vitals Vital Signs Date Time Temp Pulse Resp B/P Pulse Ox O2 Delivery O2 Flow Rate FiO2 10/08/16 11:01 94 10/08/16 11:01 94 32 156/82 99 10/08/16 10:00 90 10/08/16 10:00 90 24 132/65 93 10/08/16 09:01 95 10/08/16 09:01 98.1 92 33 141/70 95 10/08/16 08:01 88 33 131/81 95 10/08/16 08:01 95 10/08/16 08:00 88 10/08/16 07:18 95 Simple Mask 8.00 10/08/16 07:00 98.1 80 20 114/59 98 10/08/16 07:00 95 Simple Mask 3.00 10/08/16 06:01 82 19 146/79 97 10/08/16 06:00 78 10/08/16 05:01 88 28 136/64 97 10/08/16 04:55 96 Simple Mask 8.00 10/08/16 04:10 97.5 90 37 145/75 91 10/08/16 04:00 94 10/08/16 03:37 88 38 151/78 94 10/08/16 02:20 86 10/08/16 02:20 86 37 133/67 91 10/08/16 01:03 90 47 165/71 91 10/08/16 00:00 97.5 84 31 136/81 96 10/08/16 00:00 96 Nasal Cannula 3.00 10/08/16 00:00 84 10/07/16 23:00 78 30 137/67 97 10/07/16 22:00 80 27 124/61 95 10/07/16 22:00 80 10/07/16 21:00 84 27 105/72 94 10/07/16 20:00 80 10/07/16 20:00 98.1 80 29 107/30 96 10/07/16 19:48 95 Nasal Cannula 3.00 10/07/16 19:00 96 Nasal Cannula 3.00 10/07/16 19:00 80 30 121/60 96 10/07/16 18:00 78 25 119/63 97 10/07/16 18:00 78 10/07/16 17:00 80 28 110/50 100 10/07/16 16:00 98.1 10/07/16 16:00 76 29 95/44 100 10/07/16 16:00 76 10/07/16 15:00 80 37 116/57 94 10/07/16 14:00 70 29 98/42 95 10/07/16 14:00 70 I/O 10/07/16 10/07/16 10/07/16 10/08/16 10/08/16 10/08/16 06:59 14:59 22:59 06:59 14:59 22:59 Intake Total 240 ml 560 ml 440 ml 60 ml Output Total 304 ml 150 ml 950 ml 600 ml Balance -64 ml 410 ml -510 ml -540 ml Intake Oral 240 ml 560 ml 440 ml 60 ml Output Urine Total 160 ml 150 ml 300 ml 150 ml Chest Tube Drainage Total 144 ml 650 ml 450 ml # Bowel Movements 0 Result Diagram: 10/07/16 0421 10/07/16 1330 Objective Remarks GENERAL: Well-developed, well-nourished elderly male HEENT: Head is normocephalic without any lesions or masses noted. Facial features are symmetric. Eyes: Extraocular muscles are intact. Conjunctivae were clear. NECK: Supple without any masses. Trachea midline no deviation. No JVD, CARDIAC: Regular rhythm, regular rate. S1/S2 are heard. No murmurs gallops or rubs. LUNGS: Diminished in the bases bilaterally. Crackles anterior lung ahuja. Moderate use of accessory muscle on face mask. Chest tube in place at right chest. ABDOMEN: Soft, nontender. Nondistended. Bowel sounds heard in all 4 quadrants. No organomegaly or masses. Negative rebound, negative guarding EXTREMITIES: No edema, pulses are equal bilaterally. No cyanosis or clubbing NEUROLOGY: Mood and affect appear appropriate. Cranial nerves II through XII grossly intact. Moving all extremities, speech is clear Urinary Catheter: No Vascular Central Line Catheter: No A/P Assessment and Plan Acute hypoxic/hypercapnic respiratory failure, Likely secondary to chronic affective pulmonary disease, congestive heart failure, pleural effusion Patient still requiring increased O2 supplementation with nonrebreather, patient dropped to 74% when he removed his mask Technical Lead following for chest tube -Give Lasix 80 mg IV push now, place Vital - chest x-ray showing interstitial edema, I personally reviewed the images -Reconsult television and radio repairer for critical care management Chronic obstructive pulmonary disease with chronic CO2 retention. Continue O2 supplementation maintain O2 sats greater 92% Continue yuliana urbina Technical Lead following the patient Recurrent, Large right pleural effusion status post thoracentesis on October 06 with 3200 ml of clear yellow transudative fluid removed. Right pneumothorax Post thoracentesis- now resolved with chest tube, however he now has significant output from that chest tube, chest x-ray today still showing interstitial edema. Pulmonology following for chest tube management. Congestive heart failure unknown whether systolic or diastolic Continue captopril, atenolol, Lasix Obtain echocardiogram -Lasix 80 mg IV push 1 now then start 40 mg twice a day tomorrow -Place Vital -Acute metabolic encephalopathy Continue soft restraints Haldol IM as needed Chronic atrial fibrillation Beta eileen continued Coumadin continued, pharmacy consulted for Coumadin management INR 1.3 Mildly liver enzyme elevation. Improving Continue monitor DVT prophylaxis Subcutaneous heparin Patient on Coumadin which is subtherapeutic Consider palliative care consultation. Written by Poli Brody PA-C, acting as scribe for Dr. Sparks on 10/08/16 at 1500 The documentation accurately reflects the work and decisions performed face-to- face by Dr. Sparks on 10/08/16 at 1500. Poli Brody Oct 08, 2016 13:54 Genoveva Sparks MD Oct 08, 2016 15:36
[2016-10-08] MEDS ORDERED: FUROSEMIDE 100 MG/10 ML VIAL IV PUSH ONE (15:00)
[2016-10-08] MEDS: WARFARIN SOD 5 MG TAB PO SCH ×2 (16:00→16:14)
[2016-10-08 16:36] LABS: BLOOD GAS BASE EXCESS 13.1 mmol/L (-2-2); BLOOD GAS CARBOXYHEMOGLOBIN 1.7 % (0-4); BLOOD GAS HCO3 39 mmol/L (22-26); BLOOD GAS METHEMOGLOBIN 1.1 % (0-2); BLOOD GAS O2 HGB SATURATION 92 % (90-100); BLOOD GAS OXYGEN CONTENT 14.9 Vol % (12.0-20.0); BLOOD GAS PCO2 65 mmHg (38-42); BLOOD GAS PO2 74 mmHg (61-120); BLOOD GAS TOTAL HGB 11.5 G/DL (12.0-16.0)
[2016-10-08 16:37] LABS: CRITICAL VALUE YES; DRAW SITE LT RADIAL; FIO2 44 %; LITER FLOW 6 L/M; NUMBER OF ARTERIAL PUNCTURES 1; OXYGEN DEVICE NASAL CANNULA; STAT YES; ULNAR PULSE PRESENT
--- NOTE | 2016-10-08 17:45 | EC ---
Study Study Date:10/08/2016 STUDY CONCLUSIONS SUMMARY - Left ventricle: The cavity size was normal. Systolic function was normal. The estimated ejection fraction was in the range of 55% to 60%. Wall motion was normal; there were no regional wall motion abnormalities. - Aortic valve: Moderate regurgitation directed eccentrically in the LVOT and towards the mitral anterior leaflet. - Mitral valve: Mildly calcified annulus. Mild to moderate regurgitation. - Left atrium: The atrium was severely dilated. - Right atrium: The atrium was severely dilated. - Tricuspid valve: Severe regurgitation. - Pulmonary arteries: PA peak pressure: 85mm Hg (S). - Pericardium, extracardiac: A small pericardial effusion was identified. There was no evidence of hemodynamic compromise. If LV function is below 40, please consider prescribing an ACEI or ARB or document rationale for non-use. PROCEDURE DATA STUDY STATUS: Elective. Procedure: Transthoracic echocardiography. Image quality was good. Scanning was performed from the parasternal, apical, and subcostal acoustic windows. Study completion: The patient tolerated the procedure well. Transthoracic echocardiography. M-mode, complete 2D, complete spectral Doppler, and color Doppler. Patient status: Inpatient. CARDIAC ANATOMY LEFT VENTRICLE: The cavity size was normal. Systolic function was normal. The estimated ejection fraction was in the range of 55% to 60%. Wall motion was normal; there were no regional wall motion abnormalities. AORTIC VALVE: Mildly thickened leaflets. Doppler: There was no stenosis. Moderate regurgitation directed eccentrically in the LVOT and towards the mitral anterior leaflet. Mean gradient: 6mm Hg (S). Peak gradient: 13mm Hg (S). MITRAL VALVE: Mildly calcified annulus. Doppler: There was no evidence for stenosis. Mild to moderate regurgitation. Mean gradient: 3mm Hg (D). Peak gradient: 7mm Hg (D). LEFT ATRIUM: The atrium was severely dilated. ATRIAL SEPTUM: No defect or patent foramen ovale was identified. VENTRICULAR SEPTUM: The outflow septum had a sigmoid appearance. PULMONIC VALVE: Not well visualized. TRICUSPID VALVE: Doppler: There was no evidence for stenosis. Severe regurgitation. RIGHT ATRIUM: The atrium was severely dilated. PERICARDIUM: A small pericardial effusion was identified. There was no evidence of hemodynamic compromise. BASIC MEASUREMENTS ADULT Normal Left ventricle LV internal dimension, ED, chordal level, 48.3 mm 43-52 PLAX LV posterior wall thickness, ED 9.28 mm IVS/LVPW ratio, ED *1.43 <1.3 Ventricular septum Septal thickness, ED 13.3 mm Aortic valve Leaflet separation 21 mm 15-26 Left atrium Anterior-posterior dimension 60 mm Right ventricle RV internal dimension, ED, PLAX 28.8 mm 19-38 BASIC MEASUREMENTS ADULT Normal Aortic valve Leaflet separation 21 mm 15-26 Aorta Root diameter, ED 29 mm 20-37 DOPPLER MEASUREMENTS ADULT Normal Main pulmonary artery Pressure, S *85 mm Hg =30 Aortic valve Peak velocity, S 181 cm/s Mean velocity, S 106 cm/s VTI, S 42.7 cm Mean gradient, S 6 mm Hg Peak gradient, S 13 mm Hg Mitral valve Peak E-wave velocity 78.5 cm/s Peak A-wave velocity 38 cm/s Mean velocity, D 75.9 cm/s Mean gradient, D 3 mm Hg Peak gradient, D 7 mm Hg Peak E/A ratio 2.1 Tricuspid valve Regurgitant peak velocity 406 cm/s Peak RV-RA gradient, S 66 mm Hg Maximal regurgitant velocity 406 cm/s Systemic veins Estimated CVP 15 mm Hg Right ventricle RV pressure, S *85 mm Hg <30 LEGEND: Mean values are shown as u=mean value. Asterisk (*) caraballo values outside specified normal range. Prepared and signed by Ortiz Husain [id number]
--- NOTE | 2016-10-08 20:19 | HHI.PR ---
Subjective Remarks Confused and agitated. Chest tube is still draining. No fever. Objective Vital Signs Date Time Temp Pulse Resp B/P Pulse Ox O2 Delivery O2 Flow Rate FiO2 10/08/16 18:01 92 30 154/66 92 10/08/16 18:01 92 10/08/16 17:16 98 40 166/83 91 10/08/16 17:01 100 41 173/86 91 10/08/16 16:01 98.0 92 33 136/67 93 10/08/16 16:00 92 10/08/16 15:01 80 28 133/69 91 10/08/16 14:01 84 40 150/75 94 10/08/16 13:45 76 30 94 10/08/16 13:01 82 37 133/65 89 10/08/16 12:01 97.9 90 26 143/68 99 10/08/16 12:00 94 10/08/16 11:01 94 10/08/16 11:01 94 32 156/82 99 10/08/16 10:00 90 10/08/16 10:00 90 24 132/65 93 10/08/16 09:01 95 10/08/16 09:01 98.1 92 33 141/70 95 10/08/16 08:01 88 33 131/81 95 10/08/16 08:01 95 10/08/16 08:00 88 10/08/16 07:18 95 Simple Mask 8.00 10/08/16 07:00 98.1 80 20 114/59 98 10/08/16 07:00 95 Simple Mask 3.00 10/08/16 06:01 82 19 146/79 97 10/08/16 06:00 78 10/08/16 05:01 88 28 136/64 97 10/08/16 04:55 96 Simple Mask 8.00 10/08/16 04:10 97.5 90 37 145/75 91 10/08/16 04:00 94 10/08/16 03:37 88 38 151/78 94 10/08/16 02:20 86 10/08/16 02:20 86 37 133/67 91 10/08/16 01:03 90 47 165/71 91 10/08/16 00:00 97.5 84 31 136/81 96 10/08/16 00:00 96 Nasal Cannula 3.00 10/08/16 00:00 84 10/07/16 23:00 78 30 137/67 97 10/07/16 22:00 80 27 124/61 95 10/07/16 22:00 80 10/07/16 21:00 84 27 105/72 94 I/O 10/07/16 10/07/16 10/07/16 10/08/16 10/08/16 10/08/16 07:00 15:00 23:00 07:00 15:00 23:00 Intake Total 240 ml 560 ml 440 ml 60 ml 320 ml Output Total 304 ml 150 ml 950 ml 600 ml 2325 ml Balance -64 ml 410 ml -510 ml -540 ml -2005 ml Intake Oral 240 ml 560 ml 440 ml 60 ml 320 ml Output Urine Total 160 ml 150 ml 300 ml 150 ml 1950 ml Chest Tube Drainage Total 144 ml 650 ml 450 ml 375 ml # Bowel Movements 0 0 Result Diagram: 10/07/16 0421 10/07/16 1330 Objective Remarks This elderly thinly built white male is pale and mildly dyspneic at rest. There is mild clubbing or cyanosis or icterus or lymphadenopathy. HEENT: Head normocephalic. Pupils are reactive and equal. Tongue is dry. Throat is injected. Nasal mucosa is clear. NECK: Supple with mild venous distension at 45 degrees. Trachea midline. No thyroid enlargement. CHEST: Equal movements with decreased excursions. Breath sounds diminished at the bases with wheezes bilaterally. Crackles heard at bases HEART: The heart sounds are irregular S1-S2. No murmur. No S3. ABDOMEN: Soft, protuberant. No masses or organomegaly or tenderness. Bowel sounds active. EXTREMITIES: Mild varicosities and decreased peripheral pulses and reflexes are 1+ with no gross motor deficits. NEUROLOGIC: No focal deficit RECTAL: Exam is deferred. SKIN: No lesions. Assessment and Plan Assessment and Plan IMPRESSION 1. Large right pleural effusion with right basilar atelectasis. 2. CHF with ASHD 3. Atrial fibrillation 4. Hypertension 5. COPD and possible basilar pneumonia. Plan : 1. Chest tube to Drainage. 2. CXR,CBC BMP in am 3. Nebs qid , Duoneb. 4. Haldol 1 mg tid prn. 5. D/W Daughter about palliative care consult. 6. S/Q Heparin BID. Paulo Rooney MD Oct 08, 2016 20:19
[2016-10-08] MEDS: POTASSIUM CHLORIDE 20 MEQ CONTROLLED RELEASE TAB PO SCH (21:24)
[2016-10-08] MEDS: HALOPERIDOL LACTATE 5 MG/ML AMP IM PRN (22:01)
[2016-10-09] VITALS (41 sets, daily range): BP systolic 92–159; BP diastolic 21–75; PULSE 70–90; RESP 17–51; TEMP 97.6–98.4; O2SAT 91–100
[2016-10-09] MEDS: CHLORHEXIDINE GLUCONATE 2 % 1 PACK (2 CLOTHS) TOP SCH (04:00)
--- NOTE | 2016-10-09 04:37 | RADHPO ---
EXAM DATE/TIME: 10/09/2016 04:02 [facility] COMPARISON: CHEST SINGLE AP, October 08, 2016, 6:38. INDICATIONS : Short of breath. MEDICAL HISTORY : Congestive heart failure. Chronic obstructive pulmonary disease. Hypercholesterolemia. Stroke, A-fib. SURGICAL HISTORY : None. ENCOUNTER: Subsequent ACUITY: 3 days PAIN SCORE: Non-responsive. LOCATION: Bilateral chest FINDINGS: The cardiac silhouette is enlarged in transverse diameter. There are findings of congestive heart [place] with interstitial and alveolar opacity bilaterally. There has been no significant change when co mpared to the prior exam. A right chest tube is in place. There is no evidence of pneumothorax. CONCLUSION: 1. Cardiomegaly and findings of congestive heart failure. There has been no significant change when c ompared to the prior exam. 2. There is no evidence of pneumothorax. Jimi Chavez MD on October 09, 2016 at 4:35 Board Certified Radiologist. This report was verified electronically.
[2016-10-09] MEDS: RESP: ALBUTEROL 2.5 MG/IPRATROPIUM 0.5 MG NEB (SCH) INH ×6 (04:45→23:44)
[2016-10-09] MEDS: HEPARIN SODIUM - SQ 10,000 UNITS/ML VIAL SQ SCH (05:28)
[2016-10-09] MEDS: HALOPERIDOL LACTATE 5 MG/ML AMP IM PRN (05:28)
[2016-10-09] MEDS ORDERED: FUROSEMIDE 40 MG/4 ML VIAL IV PUSH SCH (06:00)
[2016-10-09 06:14] LABS: AUTOMATED NEUTROPHIL # 7.3 TH/MM3 (1.8-7.7); BASOPHIL % 0.2 % (0.0-2.0); EOSINOPHIL # 0.1 TH/MM3 (0-0.4); HEMATOCRIT 36.7 % (39.0-51.0); LYMPH % 9.3 % (9.0-44.0); LYMPHOCYTE # 0.9 TH/MM3 (1.0-4.8); MEAN CELL VOLUME 102.7 FL (80.0-100.0); MEAN CORPUSCULAR HEMOGLOBIN 33.6 PG (27.0-34.0); MEAN CORPUSCULAR HGB CONC 32.7 % (32.0-36.0); MONO % 11.3 % (0.0-8.0); NEUT % 78.2 % (16.0-70.0); PLATELET COUNT 80 TH/MM3 (150-450); RED BLOOD COUNT 3.58 MIL/MM3 (4.50-5.90); RED CELL DISTRIBUTION WIDTH 16.2 % (11.6-17.2); WHITE BLOOD COUNT 9.3 TH/MM3 (4.0-11.0)
[2016-10-09 06:22] LABS: HEMO FLAGS AUTO DIFF
[2016-10-09 06:34] LABS: POTASSIUM 4.1 MEQ/L (3.5-5.1)
[2016-10-09 06:38] LABS: BICARBONATE 41.3 MEQ/L (21.0-32.0); MAGNESIUM 2.1 MG/DL (1.5-2.5)
[2016-10-09 06:41] LABS: INTERNATIONAL NORMALIZED RATIO 2.4 RATIO; PROTHROMBIN TIME - PATIENT 27.2 SEC (9.8-11.6)
[2016-10-09 07:18] LABS: PLATELET ESTIMATE SMEAR LOW (NORMAL); PLATELET MORPHOLOGY NORMAL (NORMAL); SCAN/DIFF AUTO DIFF CONFIRMED
--- NOTE | 2016-10-09 09:13 | HHI.PR ---
Subjective Remarks Patient seen and examined today. Patient was given Haldol early this morning. He is mildly lethargic. However is following commands. He is now on 6 L nasal cannula. Chest tube with only 100 mL's output since 10 PM last night. Objective Vitals Vital Signs Date Time Temp Pulse Resp B/P Pulse Ox O2 Delivery O2 Flow Rate FiO2 10/09/16 07:51 99 Simple Mask 8.00 10/09/16 06:01 98.2 78 17 105/50 99 10/09/16 06:00 80 10/09/16 05:01 90 31 159/75 91 10/09/16 04:01 86 30 154/73 96 10/09/16 04:00 84 10/09/16 03:01 86 22 147/61 96 10/09/16 02:01 82 20 147/70 96 10/09/16 02:00 84 10/09/16 01:01 86 28 141/69 95 10/09/16 00:01 97.6 82 18 113/54 98 10/09/16 00:00 82 10/08/16 23:10 94 Venturi Mask 10.00 10/08/16 23:01 94 34 159/68 93 10/08/16 22:01 100 10/08/16 22:01 100 40 157/68 97 10/08/16 21:15 90 45 142/69 99 10/08/16 21:01 94 42 161/89 98 10/08/16 20:01 92 10/08/16 20:01 97.4 92 30 118/64 93 10/08/16 20:00 94 Partial Non-Rebreather 8.00 10/08/16 19:50 92 Nasal Cannula 6.00 10/08/16 19:01 84 29 141/65 92 10/08/16 19:00 90 Nasal Cannula 6.00 Humidified 10/08/16 18:01 92 30 154/66 92 10/08/16 18:01 92 10/08/16 17:16 98 40 166/83 91 10/08/16 17:01 100 41 173/86 91 10/08/16 16:01 98.0 92 33 136/67 93 10/08/16 16:00 92 10/08/16 15:01 80 28 133/69 91 10/08/16 14:01 84 40 150/75 94 10/08/16 13:45 76 30 94 10/08/16 13:01 82 37 133/65 89 10/08/16 12:01 97.9 90 26 143/68 99 10/08/16 12:00 94 10/08/16 11:01 94 10/08/16 11:01 94 32 156/82 99 10/08/16 10:00 90 10/08/16 10:00 90 24 132/65 93 I/O 10/08/16 10/08/16 10/08/16 10/09/16 10/09/16 10/09/16 07:00 15:00 23:00 07:00 15:00 23:00 Intake Total 60 ml 320 ml 120 ml 120 ml Output Total 600 ml 2325 ml 1850 ml 1000 ml Balance -540 ml -2005 ml -1730 ml -880 ml Intake Oral 60 ml 320 ml 120 ml 120 ml Output Urine Total 150 ml 1950 ml 1400 ml 900 ml Chest Tube Drainage Total 450 ml 375 ml 450 ml 100 ml # Bowel Movements 0 0 Result Diagram: 10/09/16 0500 10/09/16 0500 Objective Remarks GENERAL: Well-developed, well-nourished, in no acute distress. alert and orientated HEENT: Head is normocephalic without any lesions or masses noted. Facial features are symmetric. Eyes: Extraocular muscles are intact. Conjunctivae were clear. NECK: Supple without any masses. Trachea midline no deviation. No JVD, CARDIAC: Regular rhythm, regular rate. S1/S2 are heard. No murmurs gallops or rubs. LUNGS: Clear to auscultation bilaterally. No wheeze, rhonchi or rales. No use of accessory muscles on inspiration or expiration. Chest tube in place with significant output, at least 100 cc an hour ABDOMEN: Soft, nontender. Nondistended. Bowel sounds heard in all 4 quadrants. No organomegaly or masses. Negative rebound, negative guarding EXTREMITIES: No edema, pulses are equal bilaterally. No cyanosis or clubbing NEUROLOGY: Mood and affect appear appropriate. Cranial nerves II through XII grossly intact. Moving all extremities, speech is clear Urinary Catheter: No Vascular Central Line Catheter: No A/P Assessment and Plan Acute hypoxic/hypercapnic respiratory failure, due to pleural effusion, acute diastolic CHF, chronic cor pulmonale/pulm HTN, COPD Patient is tolerating nasal cannula 6 L. Continue to titrate to keep O2 sats greater than 92% - Continue diuresis, diuresing well, cxr still with pulm edema -Echocardiogram indicates ejection fraction 5560 percent. Systolic function was normal. Moderate aortic valve regurgitation. Mild to moderate mitral valve regurgitation. Severely dilated left and right atrium. Tricuspid valve severe regurgitation. Small pericardial effusion. PA peak pressure 85 mmhg -hold captopril due to hypotension Chronic obstructive pulmonary disease with chronic CO2 retention. Continue O2 supplementation maintain O2 sats greater 92% Continue duo nebs, no wheezing on exam Artist'S Model following the patient Recurrent, Large right pleural effusion status post thoracentesis on October 06 with 3200 ml of clear yellow transudative fluid removed. With right pneumothorax Post thoracentesis- now resolved with chest tube which is draining the pleural effusion. Cxr today shows persistent pulmonary edema, no pneumothorax. Pulmonology following for chest tube management. Chronic atrial fibrillation Beta eileen continued Coumadin continued, pharmacy consulted for Coumadin management INR 2.4 Mildly liver enzyme elevation. Improving Continue monitor Acute metabolic encephalopathy with agitation Soft restraints, haldol IM as needed to prevent disruption of care DVT prophylaxis Patient on Coumadin INR 2.4 Palliative care consulted Written by Poli Brody PA-C, acting as scribe for Dr. Sparks on 10/09/16 at 17:00 The documentation accurately reflects the work and decisions performed face-to- face by Dr. Sparks on 10/09/16 at 17:00 Poli Brody Oct 09, 2016 09:13 Genoveva Sparks MD Oct 09, 2016 17:09
[2016-10-09] MEDS: FUROSEMIDE 40 MG/4 ML VIAL IV PUSH SCH ×2 (09:41→18:04)
[2016-10-09] MEDS: FAMOTIDINE 20 MG/2 ML VIAL IV PUSH SCH ×2 (09:45→20:22)
[2016-10-09] MEDS: SODIUM CHLORIDE 0.9% FLUSH 5 ML FLUSH IV FLUSH SCH ×2 (09:46→20:22)
[2016-10-09] MEDS: POTASSIUM CHLORIDE 20 MEQ CONTROLLED RELEASE TAB PO SCH ×2 (11:00→20:22)
[2016-10-09] MEDS: DOCUSATE SODIUM 100 MG CAP PO SCH ×2 (11:00→20:22)
[2016-10-09] MEDS: ATENOLOL 50 MG TAB PO SCH ×2 (11:00→20:08)
[2016-10-09] MEDS: CAPTOPRIL 50 MG TAB PO SCH ×2 (11:00→12:00)
[2016-10-09] MEDS: ALPRAZolam 0.25 MG TAB PO PRN (15:03)
[2016-10-09] MEDS: WARFARIN SOD 5 MG TAB PO SCH (16:52)
--- NOTE | 2016-10-09 17:13 | HHI.PR ---
Subjective Remarks Confused and calmer . Chest tube drained >500 CC today. No fever. CXR shows CHF changes. Objective Vital Signs Date Time Temp Pulse Resp B/P Pulse Ox O2 Delivery O2 Flow Rate FiO2 10/09/16 14:01 80 27 107/60 94 10/09/16 13:01 74 20 94/44 99 10/09/16 13:00 72 10/09/16 12:48 72 19 104/51 93 10/09/16 12:01 98.1 74 29 96/21 97 10/09/16 12:00 76 10/09/16 11:01 78 21 120/62 94 10/09/16 11:00 76 10/09/16 10:01 76 51 114/53 99 10/09/16 10:00 78 10/09/16 09:01 76 21 97/71 100 10/09/16 09:00 78 10/09/16 08:01 97.6 80 20 137/60 98 10/09/16 08:00 76 10/09/16 07:51 99 Simple Mask 8.00 10/09/16 07:01 76 17 115/53 99 10/09/16 07:00 95 Venturi Mask 10.00 10/09/16 06:01 98.2 78 17 105/50 99 10/09/16 06:00 80 10/09/16 05:01 90 31 159/75 91 10/09/16 04:01 86 30 154/73 96 10/09/16 04:00 84 10/09/16 03:01 86 22 147/61 96 10/09/16 02:01 82 20 147/70 96 10/09/16 02:00 84 10/09/16 01:01 86 28 141/69 95 10/09/16 00:01 97.6 82 18 113/54 98 10/09/16 00:00 82 10/08/16 23:10 94 Venturi Mask 10.00 10/08/16 23:01 94 34 159/68 93 10/08/16 22:01 100 10/08/16 22:01 100 40 157/68 97 10/08/16 21:15 90 45 142/69 99 10/08/16 21:01 94 42 161/89 98 10/08/16 20:01 92 10/08/16 20:01 97.4 92 30 118/64 93 10/08/16 20:00 94 Partial Non-Rebreather 8.00 10/08/16 19:50 92 Nasal Cannula 6.00 10/08/16 19:01 84 29 141/65 92 10/08/16 19:00 90 Nasal Cannula 6.00 Humidified 10/08/16 18:01 92 30 154/66 92 10/08/16 18:01 92 10/08/16 17:16 98 40 166/83 91 I/O 10/08/16 10/08/16 10/08/16 10/09/16 10/09/16 10/09/16 07:00 15:00 23:00 07:00 15:00 23:00 Intake Total 60 ml 320 ml 120 ml 120 ml 480 ml Output Total 600 ml 2325 ml 1850 ml 1000 ml 1950 ml Balance -540 ml -2005 ml -1730 ml -880 ml -1470 ml Intake Oral 60 ml 320 ml 120 ml 120 ml 480 ml IV Total 0 ml Output Urine Total 150 ml 1950 ml 1400 ml 900 ml 1425 ml Chest Tube Drainage Total 450 ml 375 ml 450 ml 100 ml 525 ml # Bowel Movements 0 0 0 Result Diagram: 10/09/16 0500 10/09/16 0500 Objective Remarks This elderly thinly built white male is pale and mildly dyspneic at rest. There is mild clubbing or cyanosis or icterus or lymphadenopathy. HEENT: Head normocephalic. Pupils are reactive and equal. Tongue is dry. Throat is injected. Nasal mucosa is clear. NECK: Supple with mild venous distension at 45 degrees. Trachea midline. No thyroid enlargement. CHEST: Equal movements with decreased excursions. Breath sounds diminished at the bases with occ wheezes bilaterally. Crackles heard at lung bases HEART: The heart sounds are irregular S1-S2. No murmur. No S3. ABDOMEN: Soft, protuberant. No masses or organomegaly or tenderness. Bowel sounds active. EXTREMITIES: Mild varicosities and decreased peripheral pulses and reflexes are 1+ with no gross motor deficits. NEUROLOGIC: No focal deficit RECTAL: Exam is deferred. SKIN: No lesions. Assessment and Plan Assessment and Plan IMPRESSION 1. Large right pleural effusion with right basilar atelectasis. 2. CHF with ASHD 3. Atrial fibrillation 4. Hypertension 5. COPD and possible basilar pneumonia. Plan : 1. Chest tube to Drainage. 2. CT chest W/O contrast in am 3. Nebs qid , Duoneb. 4. Haldol 1 mg tid prn. 5. D/W Daughter about palliative care consult. 6. S/Q Heparin BID. 7. Will consider doing [place] Pleurodesis if drainage persists. Paulo Rooney MD Oct 09, 2016 17:13
--- NOTE | 2016-10-09 17:36 | PD.CONS ---
Consult Service Palliative Care . Consult Requested By Dr. Sparks . Primary Care Physician Jayce De Souza MD . Reason for Consultation a. To assist with evaluation and management of symptoms including: dyspnea; confusion; pain b. To assist medical decision maker(s) with: better understanding of current medical conditions; weighing benefits/burdens of medical treatment options; making medical treatment decisions. HPI History of Present Illness Mr. duncan is an 81-year-old male with a long-standing history of atrial fibrillation; congestive heart failure with recurrent pleural effusion; chronic lower extremity venous stasis changes with cellulitis; O2 dependent COPD; and dyslipidemia who was brought to the emergency department via EMS after suffering a fall at home. The patient complained primarily of generalized weakness but paramedics noted that the patient was tachypneic and saturating in the mid 80s. Respiratory rate was initially in the 40s. The patient improved with nebulizer treatments and was placed on O2 via nasal cannula at 6 L a minute. O2 sat increased to 94%. Daughter reported that she was home at time of the fall but did not witness it. The patient did not lose consciousness and there was no associated incontinence of bowel/bladder. The patient in the past has reported a history atrial fibrillation as long as he can remember and a history of congestive heart failure dating back to the early . In 2001 he was noted to have mild to moderate valvular disease; left ventricular dysfunction with a 45% ejection fraction; and a normal SPECT nuclear scan. In June 2015 echocardiogram noted marked left atrial enlargement; moderate aortic insufficiency; mild mitral regurgitation; mild to moderate tricuspid regurgitation; pulmonary hypertension; and a small pericardial effusion. The patient has also suffered from chronic venous stasis changes in the lower extremities. The patient was hospitalized from 04/12/2016 through 04/19/2016 for right lower extremity cellulitis and a right sided pleural effusion. It was quite a large pleural effusion and was associated with collapse of the right middle lobe. Thoracentesis occurred on 04/14/16. The patient also underwent bronchoscopy on 04/17/16 which was unremarkable. The pleural effusion was felt secondary to the patient's congestive heart failure at the time. The pleural effusion has been recurrent and we have records of another thoracentesis on 08/05/2016. The patient's daughter has reported that another thoracentesis took place around mid-June at a different location. Daughter reports that she has been preparing meals for her father so he has been eating fairly well. Alcohol consumption has been an issue for years, but daughter believes there has been little EtOH in the house since February 2016. Initial vital signs in the emergency department showed the following: Temperature 97.9; pulse 86; blood pressure 180/81; respiratory rate 26; pulse oximetry 80% on O2 via nasal cannula at 2 L a minute Initial physical examination by the emergency humanities department chair noted the following: Patient was in moderate distress. There were ecchymoses on the mid parietal scalp. There is accessory muscle use with respirations and decreased breath sounds in lower lungs bilaterally. There were crackles in the lungs. Respiratory rate was 40 breaths per minute. Scrotal edema was noted. Bilateral lower extremity edema was noted. Patient was awake and alert. No other abnormalities noted. Initial diagnostic studies revealed the following: * CBC showed a VBC 6.4; hemoglobin 12.3; platelet count 101; MCV 101.8 * Coagulation profile showed PT 14.2; INR 1.3; PTT 30.1 * Chemistry profile showed sodium 146; potassium 4.6; chloride 102; CO2 39.7; anion gap 4; BUN 11; creatinine 0.77; GFR 97; glucose 101; lactic acid 1.1; calcium 8.4; magnesium 2.5 * Cardiac serology showed total CK at 73; troponin 0.03; B-type natriuretic peptide 154 * Arterial blood gases on BiPAP machine at 35% FiO2 showed pH 7.31; PCO2 78; PO2 64; bicarbonate 38; base excess 11.4 * Urinalysis was unremarkable * Pre-albumin level was 12 * Electrocardiogram showed atrial fibrillation with a rate of 88. Right bundle branch block was present. * Chest x-ray showed opacification of right hemithorax. Combination of right lung atelectasis and right effusion * CT of the cervical spine showed no acute findings other was moderate degenerative disc disease. * Head CT showed no acute intracranial abnormalities. A small lacunar infarct was noted on the right The patient appeared in respiratory distress upon presentation to the emergency department and he was placed on BiPAP immediately. With BiPAP, respiratory rate dropped from 40 down to 30. Because of both edema and crackles the patient was given 40 mg of intravenous Lasix. Critical care was consulted and Dr. Guerrero performed thoracentesis at the bedside with removal of 3200 cc of fluid. The patient was admitted to critical care. Pulmonary has been consulted. The patient's chest tube continues to drain. Since admission the patient has had some agitation and confusion consistent with delirium. He has been placed in soft wrist restraints and is received haloperidol. At time of my visit the patient is quite lethargic. He has been able to wean off the BiPAP and at time of my visit was on O2 via nasal cannula at 6 L a minute. He does not wake up to loud voice or exam other than to make some unintelligible vocalizations. Function/Cognitive Trajectory Mr. Duncan has been declining since his hospitalization back in March 2016. He presented then with a large right pleural effusion requiring thoracentesis. He has had at least 3 additional thoracenteses since that time. The patient is primarily home bound at this time. He lives alone. He walks with a walker. He is still able to dress himself and bathe himself. Daughter reports that he has had both bowel and bladder incontinence. Daughter does all the shopping and brings him meals. He has remained cognitively intact. He is normally on oxygen at 2 L a minute at home. Daughter reports that she removed all the alcohol from the house back in February 2016. . Review of Systems ROS Limitations: Clinical Condition (Patient non-verbal at time of my visit. ROS taken as best as possible from daughter and from medical record.) Constitutional: COMPLAINS OF: Fatigue, Weight gain (weight fluctuates with edema status), Generalized weakness, DENIES: Night Sweats, Pain Endocrine: COMPLAINS OF: Polydipsia, Polyuria, Polyphagia Eyes: COMPLAINS OF: Vision loss (wears reading glasses), DENIES: Diplopia, Eye pain Ears, nose, mouth, throat: DENIES: Hearing loss, Running Nose, Epistaxis Respiratory: COMPLAINS OF: Cough, Wheezing, Shortness of breath, DENIES: Apneas, Hemoptysis, Sputum production Cardiovascular: COMPLAINS OF: Dyspnea on Exertion, Lower Extremity Edema, DENIES: Chest pain, Palpitations, Syncope Gastrointestinal: DENIES: Black stools, Bloody stools, Constipation, Diarrhea, Nausea, Vomiting Genitourinary: COMPLAINS OF: Urinary incontinence Musculoskeletal: DENIES: Joint pain, Back pain, Neck pain Integumentary: COMPLAINS OF: Rash Hematologic/Lymphatics: COMPLAINS OF: Bruising, DENIES: Prolonged bleed w/ proced Immunologic/Allergic: DENIES: Urticaria Neurologic: COMPLAINS OF: Abnormal gait (uses a walker), Poor Balance, DENIES : Localized weakness, Seizures, Tremor Psychiatric: COMPLAINS OF: Hallucinations, DENIES: Anxiety, Confusion, Mood changes Past Family Social History Coded Allergies: No Known Allergies (Verified , 04/12/16) Past Medical History * Congestive heart failure * Recurrent right pleural effusion ( thoracentesis on 04/14/16 , ? 07/10/16 and 08/05/16) * Atrial fibrillation -- decades long history * COPDO2 dependent at 2 L/m * Hypertension * Chronic lower extremity venous stasis changes with history of lower extremity cellulitis * History of stroke -- only sequelae that daughter is aware of is some difficulty with speech expression. * Dyslipidemia * History of mild thrombocytopenia * Skin cancer * Cholelithiasis . Past Surgical History * Left knee surgery 1960 while in the . Reported Medications Prehospital medications included the following: Ginkgo Biloba 120 Mg Tab [place] 3 1000 mg ([place]-3 Fatty Acids) 1 Cap Cap Milk Thistle 140 Mg Cap BID Warfarin 5 Mg Tab 5 Mg PO DAILY Klor-Con 10 (Potassium Chloride) 10 Meq Tab 10 Meq PO DAILY Atenolol 50 Mg Tab 50 Mg PO BID Captopril 50 Mg Tab 50 Mg PO TIDAC Furosemide 20 Mg Tab 20 Mg PO DAILY . Current Medications Medications (Trade) Dose Ordered Sig/Sonia Route Start Time Stop Time Status Last Admin (NS Flush) 2 ml UNSCH PRN IV FLUSH 10/06/16 17:45 (NS Flush) 2 ml BID IV FLUSH 10/06/16 21:00 10/09/16 09:46 (Tylenol) 650 mg Q6H PRN PO 10/06/16 17:45 10/07/16 20:01 (Morphine Inj) 2 mg Q2H PRN IV 10/06/16 17:45 10/08/16 16:23 (Pepcid Inj) 20 mg Q12HR IV PUSH 10/06/16 21:00 10/09/16 09:45 (Zofran Inj) 4 mg Q6H PRN IV 10/06/16 17:45 (Reglan Inj) 10 mg Q6H PRN IV 10/06/16 17:45 (Colace) 100 mg BID PO 10/06/16 21:00 10/09/16 11:00 Miscellaneous Information 1 Q361D XX 10/06/16 17:45 10/06/16 17:45 (Chlorhexidine 2% Cloth) 3 pack Taper DAILY@04 TOP 10/07/16 04:00 10/03/17 03:59 10/09/16 04:00 (Chlorhexidine 2% Cloth) 3 pack UNSCH PRN TOP 10/06/16 17:45 (Tenormin) 50 mg BID PO 10/06/16 21:00 10/09/16 11:00 Captopril 50 mg 50 mg TIDAC PO 10/07/16 08:00 Hold 10/09/16 11:00 (Coumadin Consult Pharmacy) 0 ml @ 0 mls/hr UNSCH OTHER 10/06/16 17:45 (Coumadin) 5 mg DAILY@16 PO 10/08/16 16:00 (Xanax) 0.25 mg Q6H PRN PO 10/07/16 16:30 10/09/16 15:03 (KCl) 20 meq Q12HR PO 10/08/16 21:00 10/09/16 11:00 (Haldol Inj) 2 mg Q6H PRN IM 10/08/16 17:30 10/09/16 05:28 (Lasix Inj) 40 mg BID@09,18 IV PUSH 10/09/16 09:00 10/09/16 09:41 . Family History Patient's father had heart disease . Substance Use Tobacco: Approximately 40 year history of cigarette smoking. No recent use. Alcohol: In the past has admitted to 2-3 drinks per day -- especially wine. Daughter believes EtOH has been a problem for patient. Prescription med abuse: No known prescription drug abuse. Illicits: Has admitted to approximately a 10 year history of marijuana use mostly at night . Psychosocial History Patient is initially from [facility]. He has lived in [place] since the 1980s. 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 He retired at age 73. The patient was once. He is long . He has 2 children . His daughter--Raissa Duncan--lives locally and is very involved in his care. There is a son who lives in [place] and has only seen the patient twice in the last 10 years and reportedly has not seen him in the last 5. The son does keep in touch however. The patient lives alone. His daughter, lives a few blocks away and provides meals and does all her shopping for him. The patient is basically homebound at this time. . Spiritual/Cultural Factors The patient comes from [place] tradition. Per his daughter, amish and spirituality have not been an important part of his life. . Living Will: Never completed Health Care Surrogate: Never completed Durable Power of Ux Manager: Completed, but not made available Date completed: The patient has completed a DURABLE POWER OF HOUSEHOLD APPLIANCE ASSEMBLER document. Daughter does not believe this includes healthcare decision-making. Date of completion is unknown. Daughter tells me she has legal/financial power of traffic law attorney. . Health Care Surrogate(s): No written designation of health care surrogacy. . Documented care wishes: No written documentation of health care goals/preferences. . Today's verbally stated goals: Patient is lethargic, sedated, and unable to verbally state his own goals at time of my visit. . Family/friends goals: Daughter tells me the following -- "my father is selfish and self-centered. If he could be kept comfortable while on life support and still enjoy TV, he would do that forever." . Ethical and Legal Issues Patient is incapacitated to make his own health care decisions at the time of my visit. It is likely that he will regain capacity to do so. As there is no written designation of health care surrogacy that we know of, decision-making would fall to the patient's 2 adult children.. Physical Exam Vital Signs Date Time Temp Pulse Resp B/P Pulse Ox O2 Delivery O2 Flow Rate FiO2 10/09/16 14:01 80 27 107/60 94 10/09/16 13:01 74 20 94/44 99 10/09/16 13:00 72 10/09/16 12:48 72 19 104/51 93 10/09/16 12:01 98.1 74 29 96/21 97 10/09/16 12:00 76 10/09/16 11:01 78 21 120/62 94 10/09/16 11:00 76 10/09/16 10:01 76 51 114/53 99 10/09/16 10:00 78 10/09/16 09:01 76 21 97/71 100 10/09/16 09:00 78 10/09/16 08:01 97.6 80 20 137/60 98 10/09/16 08:00 76 10/09/16 07:51 99 Simple Mask 8.00 10/09/16 07:01 76 17 115/53 99 10/09/16 07:00 95 Venturi Mask 10.00 10/09/16 06:01 98.2 78 17 105/50 99 10/09/16 06:00 80 10/09/16 05:01 90 31 159/75 91 10/09/16 04:01 86 30 154/73 96 10/09/16 04:00 84 10/09/16 03:01 86 22 147/61 96 10/09/16 02:01 82 20 147/70 96 10/09/16 02:00 84 10/09/16 01:01 86 28 141/69 95 10/09/16 00:01 97.6 82 18 113/54 98 10/09/16 00:00 82 10/08/16 23:10 94 Venturi Mask 10.00 10/08/16 23:01 94 34 159/68 93 10/08/16 22:01 100 10/08/16 22:01 100 40 157/68 97 10/08/16 21:15 90 45 142/69 99 10/08/16 21:01 94 42 161/89 98 10/08/16 20:01 92 10/08/16 20:01 97.4 92 30 118/64 93 10/08/16 20:00 94 Partial Non-Rebreather 8.00 10/08/16 19:50 92 Nasal Cannula 6.00 10/08/16 19:01 84 29 141/65 92 10/08/16 19:00 90 Nasal Cannula 6.00 Humidified 10/08/16 18:01 92 30 154/66 92 10/08/16 18:01 92 10/08/16 17:16 98 40 166/83 91 10/08/16 17:01 100 41 173/86 91 10/08/16 16:01 98.0 92 33 136/67 93 10/08/16 16:00 92 . 10/08/16 10/09/16 19:00 07:00 Intake Total 320 ml 240 ml Output Total 2325 ml 2850 ml Balance -2005 ml -2610 ml Intake Oral 320 ml 240 ml Output Urine Total 1950 ml 2300 ml Chest Tube Drainage Total 375 ml 550 ml # Bowel Movements 0 0 . Exam CONSTITUTIONAL/GENERAL: This is frail appearing male looking his stated age currently lethargic in an MICU bed. No apparent distress. TUBES/LINES/DRAINS: Vital catheter; nasal cannula oxygen; soft wrist restraints ; right sided chest tube; SKIN: No jaundice, rashes. Ecchymoses on upper extremities. Chronic venous stasis changes on both lower extremities. Actinic damage noted in sun exposed areas. Skin temperature appropriate. Not diaphoretic. HEAD: Atraumatic. Normocephalic. EYES: Pupils equal and round and reactive. Could not evaluate extraocular movements. No scleral icterus. No injection or drainage. Fundi not examined. ENT: Cannot evaluate hearing.. Nose without bleeding or purulent drainage. Throat without visible erythema, exudates, masses, or lesions. NECK: Trachea midline. Supple, nontender. No palpable thyroid enlargement or nodularity. CARDIOVASCULAR: Irregular rhythm without murmurs, gallops, or rubs. JVD is present. Peripheral pulses symmetric. RESPIRATORY/CHEST: Symmetric, unlabored respirations. Left lung field is clear. Air movement much diminished on the right. Chest tube is present on the right. No wheezes, rales, or rhonchi. GASTROINTESTINAL: Abdomen soft, non-tender, nondistended. No hepato-splenomegaly , or palpable masses. No guarding. Bowel sounds present. GENITOURINARY: Without palpable bladder distension. Vital catheter in place. Scrotal edema is present. MUSCULOSKELETAL: Extremities without clubbing, cyanosis. 1+ edema is present. Chronic venous stasis changes apparent in both lower extremities. No joint tenderness or effusion noted. No calf tenderness. No mottling. LYMPHATICS: No palpable cervical or supraclavicular adenopathy. NEUROLOGICAL: Sleepy and lethargic. Stirs to loud voice and exam but doesn't open his eyes. Unable to follow commands. A few unintelligible vocalizations. Motor and sensory grossly within normal limits. PSYCHIATRIC: Unable to assess due to level of responsiveness . Diagnostic Tests Laboratory Laboratory Tests Test 10/06/16 10/06/16 10/06/16 10/06/16 17:22 18:20 21:40 22:50 Blood Gas Puncture Site LT RADIAL Blood Gas Patient Temperature 98.6 Blood Gas HCO3 39 mmol/L (22-26) Blood Gas Base Excess 12.3 mmol/L (-2-2) Blood Gas Oxygen Saturation 90 % (90-100) Arterial Blood pH 7.33 (7.380-7.420) Arterial Blood Partial 76 mmHG (38-42) Pressure CO2 Arterial Blood Partial 69 mmHG Pressure O2 (61-120) Arterial Blood Oxygen Content 15.2 Vol % (12.0-20.0) Arterial Blood 2.2 % (0-4) Carboxyhemoglobin Arterial Blood Methemoglobin 1.1 % (0-2) Blood Gas Hemoglobin 12.0 G/DL (12.0-16.0) Oxygen Delivery Device BIPAP Blood Gas Ventilator Setting 15 IPAP/5 EPAP Blood Gas Inspired Oxygen 40 % Pleural Fluid pH 8.0 Pleural Fluid Specific [place] 1.019 Pleural Fluid Total Protein 2.4 GM/DL Pleural Fluid LDH 58 U/L Pleural Fluid Cholesterol LESS THAN 50 MG/DL Total Bilirubin 1.8 MG/DL (0.2-1.0) Direct Bilirubin 0.6 MG/DL (0.0-0.2) Indirect Bilirubin 1.2 MG/DL (0.0-0.8) Aspartate Amino Transf 39 U/L (15-37) (AST/SGOT) Alanine Aminotransferase 28 U/L (12-78) (ALT/SGPT) Alkaline Phosphatase 92 U/L (45-117) Total Creatine Kinase 88 U/L (39-308) Total Protein 6.1 GM/DL (6.4-8.2) Albumin 3.0 GM/DL (3.4-5.0) Nasal Screen MRSA (PCR) NEGATIVE (NEGATIVE) Test 10/07/16 10/07/16 10/08/16 10/09/16 04:21 13:30 16:24 05:00 White Blood Count 5.5 TH/MM3 9.3 TH/MM3 (4.0-11.0) (4.0-11.0) Red Blood Count 3.57 MIL/MM3 3.58 MIL/MM3 (4.50-5.90) (4.50-5.90) Hemoglobin 11.3 GM/DL 12.0 GM/DL (13.0-17.0) (13.0-17.0) Hematocrit 36.2 % 36.7 % (39.0-51.0) (39.0-51.0) Mean Corpuscular Volume 101.4 FL 102.7 FL (80.0-100.0) (80.0-100.0) Mean Corpuscular Hemoglobin 31.6 PG 33.6 PG (27.0-34.0) (27.0-34.0) Mean Corpuscular Hemoglobin 31.2 % 32.7 % Concent (32.0-36.0) (32.0-36.0) Red Cell Distribution Width 14.9 % 16.2 % (11.6-17.2) (11.6-17.2) Platelet Count 104 TH/MM3 80 TH/MM3 (150-450) (150-450) Mean Platelet Volume 9.0 FL 9.1 FL (7.0-11.0) (7.0-11.0) Neutrophils (%) (Auto) 81.9 % 78.2 % (16.0-70.0) (16.0-70.0) Lymphocytes (%) (Auto) 7.9 % 9.3 % (9.0-44.0) (9.0-44.0) Monocytes (%) (Auto) 10.1 % 11.3 % (0.0-8.0) (0.0-8.0) Eosinophils (%) (Auto) 0.0 % (0.0-4.0) 1.0 % (0.0-4.0) Basophils (%) (Auto) 0.1 % (0.0-2.0) 0.2 % (0.0-2.0) Neutrophils # (Auto) 4.5 TH/MM3 7.3 TH/MM3 (1.8-7.7) (1.8-7.7) Lymphocytes # (Auto) 0.4 TH/MM3 0.9 TH/MM3 (1.0-4.8) (1.0-4.8) Monocytes # (Auto) 0.6 TH/MM3 1.0 TH/MM3 (0-0.9) (0-0.9) Eosinophils # (Auto) 0.0 TH/MM3 0.1 TH/MM3 (0-0.4) (0-0.4) Basophils # (Auto) 0.0 TH/MM3 0.0 TH/MM3 (0-0.2) (0-0.2) CBC Comment DIFF FINAL AUTO DIFF Differential Comment AUTO DIFF CONFIRMED Sodium Level 146 MEQ/L 146 MEQ/L (136-145) (136-145) Potassium Level 4.1 MEQ/L 4.1 MEQ/L (3.5-5.1) (3.5-5.1) Chloride Level 101 MEQ/L 100 MEQ/L (98-107) (98-107) Carbon Dioxide Level 40.5 MEQ/L 41.3 MEQ/L (21.0-32.0) (21.0-32.0) Anion Gap 5 MEQ/L (5-15) 5 MEQ/L (5-15) Blood Urea Nitrogen 24 MG/DL (7-18) 26 MG/DL (7-18) Creatinine 1.10 MG/DL 0.87 MG/DL (0.60-1.30) (0.60-1.30) Estimat Glomerular Filtration 64 ML/MIN (>89) 84 ML/MIN (>89) Rate Random Glucose 118 MG/DL 88 MG/DL (74-106) (74-106) Calcium Level 8.5 MG/DL 8.3 MG/DL (8.5-10.1) (8.5-10.1) Total Bilirubin 1.1 MG/DL (0.2-1.0) Aspartate Amino Transf 40 U/L (15-37) (AST/SGOT) Alanine Aminotransferase 26 U/L (12-78) (ALT/SGPT) Alkaline Phosphatase 82 U/L (45-117) Total Protein 6.0 GM/DL (6.4-8.2) Albumin 2.9 GM/DL (3.4-5.0) Blood Gas Puncture Site LT RADIAL Blood Gas Patient Temperature 37.0 Blood Gas HCO3 39 mmol/L (22-26) Blood Gas Base Excess 13.1 mmol/L (-2-2) Blood Gas Oxygen Saturation 92 % (90-100) Arterial Blood pH 7.39 (7.380-7.420) Arterial Blood Partial 65 mmHg (38-42) Pressure CO2 Arterial Blood Partial 74 mmHg Pressure O2 (61-120) Arterial Blood Oxygen Content 14.9 Vol % (12.0-20.0) Arterial Blood 1.7 % (0-4) Carboxyhemoglobin Arterial Blood Methemoglobin 1.1 % (0-2) Blood Gas Hemoglobin 11.5 G/DL (12.0-16.0) Oxygen Delivery Device NASAL CANNULA Blood Gas Liter Flow 6 L/M Blood Gas Inspired Oxygen 44 % Platelet Estimate LOW (NORMAL) Platelet Morphology Comment NORMAL (NORMAL) Prothrombin Time 27.2 SEC (9.8-11.6) Prothromb Time International 2.4 RATIO Ratio Magnesium Level 2.1 MG/DL (1.5-2.5) . Result Diagram: 10/09/16 0500 10/09/16 0500 Microbiology Microbiology Date/Time Procedure Status Source Growth 10/07/16 18:21 Gram Stain - Final Resulted Fluid Pleural Fluid 10/07/16 18:21 Body Fluid Culture - Preliminary Resulted Fluid Pleural Fluid NO GROWTH IN 48 HOURS. . Imaging Last Impressions Chest X-Ray 10/09/16 0600 Signed Impressions: Service Date/Time: Sunday, October 09, 2016 04:02 - CONCLUSION: 1. Cardiomegaly and findings of congestive heart failure. There has been no significant change when compared to the prior exam. 2. There is no evidence of pneumothorax. Jimi Chavez MD Head CT 10/06/16 0000 Signed Impressions: Service Date/Time: Thursday, October 06, 2016 16:27 - CONCLUSION: 1. No acute intracranial abnormalities. Stable small lacunar infarct on the right as above. Chaka Campos MD Cervical Spine CT 10/06/16 0000 Signed Impressions: Service Date/Time: Thursday, October 06, 2016 16:27 - CONCLUSION: 1. No acute findings in the cervical spine. Moderate degenerative disc disease but no significant canal stenosis. Large right pleural effusion noted at the right lung apex. Chaka Campos MD . Procedures * Thoracentesis/chest tube placement . Other * Echocardiogram of 10/08/2016: Ejection fraction 55-60%. No regional wall motion abnormalities. Moderate aortic valve regurgitation. Mild to moderate mitral valve regurgitation. Severely dilated left atrium. Severely dilated right atrium. Severe tricuspid regurgitation. Small pericardial effusion. Pulmonary artery hypertension with peak pressure 85 mmHg . Patient/Family Conference Present at Family Conference: Spoke with daughter -- Raissa Duncan-- by phone. . Family Conference Time (mins): 30 Family Conference Location: Telephone Issues Discussed: * Palliative care role, purpose, approach * Additional medical, psychosocial, and spiritual history * Patients general health, functional status, and cognitive changes in the months leading up to the current hospitalization * Patient/family understanding of the current medical problems * Patient/family understanding of prognosis * Patients goals of care as best understood from conversations and/or values * Current medical treatment options and benefits/burdens of those options * Questions answered to the best of my ability . Assessment and Plan Disease Oriented Problem List: (1) Congestive heart failure Comment: Patient has had congestive heart failure since the . Etiology of the congestive heart failure is unclear. Patient does have valvular heart disease with significant dilated right and left atria. No known history of severe ischemic disease. . (2) Pleural effusion, right Comment: Patient has recurrent pleural effusion probably secondary to his congestive heart failure. Has required at least 4 thoracenteses since March 2016. Currently with right chest tube in place. . (3) Chronic atrial fibrillation Comment: Patient has had atrial fibrillation as long as he can remember as an adult . (4) COPD (chronic obstructive pulmonary disease) Comment: Patient was a long-time smoker. Has been on 2 L a minute of nasal cannula oxygen at home . (5) Acute respiratory failure with hypoxia and hypercapnia Comment: Patient required BiPAP on arrival in the emergency department. Respiratory insufficiency was secondary to his underlying COPD and to his congestive heart failure with large pleural effusion. Now improving. . (6) Tricuspid regurgitation Comment: Tricuspid regurgitation rated as severe per echocardiogram . (7) Mitral regurgitation Comment: Mitral regurgitation rated as mild to moderate on echocardiogram . (8) Pulmonary artery hypertension Comment: Pulmonary artery peak pressure estimated at 85 mmHg on echocardiogram . (9) Macrocytosis Comment: Patient with long history of alcohol abuse. Hemoglobin is normal but there still may be underlying B-12 or folate deficiency. . (10) Stroke Comment: CT imaging shows a stroke. Daughter thinks this happened last summer. Only known sequellae is some difficulty finding words. . (11) Hypoalbuminemia Symptom Scale: (1) Pain 0-10 Scale: Unable to quantify Comment: Per daughter, patient had no prehospitalization pain syndromes. Possible discomfort here in hospital may be attributed to Vital catheter; wrist restraints; oxygen delivery mechanism; vascular access; chest tube; prolonged bedbound status. . (2) Confusion 0-10 Scale: Unable to quantify Comment: Patient reportedly is cognitively intact normally. Intermittent confusion here in the hospital is probably a multifactorial delirium. . (3) Dyspnea 0-10 Scale: Unable to quantify Comment: Patient's dyspnea is probably secondary to a combination of his underlying COPD; congestive heart failure; right pleural effusion. Improving.. . Pertinent Non-Medical Issues Psychosocial: Patient's primary psychosocial support comes from his daughter Raissa Duncan--who lives a few blocks from the patient. There is also a son who lives in [place] but has not seen the patient for about 5 years. Spiritual: Patient comes from the Taoism tradition. [employer] and spirituality have not played an important role in his life. Legal: Daughter reports that there is documentation listing her as having legal/ financial power of traffic law attorney. She does not believe this includes healthcare decision-making. No known living will or written designation of health care surrogacy. Ethical issues impacting care: Patient is currently incapacitated to make his own health care decisions. It is likely he will regain capacity. . Important Contacts * Raissa Duncan (daughter) [phone] There is a son who lives in [place]. I do not have his name or contact information. . Prognosis This is an 81-year-old male with a several decades history of congestive heart failure complicated by underlying COPD, history of alcohol abuse. Patient has been declining since March 2016 particularly with recurrent right pleural effusions. He has required 4 thoracenteses since that time. Patient is now mostly homebound. He does remain ambulatory with a walker. There is no known ischemic heart disease and failure may be primarily due to valvular heart disease. There is severe tricuspid regurgitation. Patient has shown some improvement since thoracentesis. There is a reasonable chance he will continue to improve well enough to survive the hospitalization. Based on his history of the last few months, long-term prognosis is not good. Life expectancy is probably in the order of months. Patient would certainly be eligible for hospice services at such time as his goals become mostly comfort oriented. . Code Status: Full Code Plan == Code Status: Full code == Decision making : The patient is currently incapacitated to make his own health care decisions. He is likely to regain capacity to do so. The daughter reportedly has legal/financial power of traffic law attorney but there is no evidence that this includes healthcare decision-making. Under [place] statutes, while the patient is incapacitated, healthcare decision-making would fall equally to both of his children, even though the son lives in [place] and has not been very involved. The daughter is not provided me with contact information for the son , however. == Goals of medical treatment: Patient has not completed a living will or specifically discussed goals of medical treatment with his daughter. Daughter has indicated thatpatient is rather selfish and self-centered and has stated that as long as he was comfortable and could watch TV he would probably want to stay on life support forever. == Pain: Possible causes of pain are addressed above. Patient had no prehospital pain syndromes. He currently has an order for intravenous morphine sulfate at 2 mg every 2 hours when necessary pain level 6-10. That appears to be effective. No further recommendations at this time. == Dyspnea: Dyspnea is likely secondary to patient's congestive heart failure ; right pleural effusion; and underlying COPD. Dyspnea is improving especially after thoracentesis. Currently appears comfortable on nasal cannula O2. As goals are aggressive we'll minimize use of opiates or benzos in treating dyspnea. No further recommendations at this time. == Confusion: Per daughter, patient is normally quite cognitively sharp. He apparently can name the starting lineup solely [employer] teams and can recite the teams playing and all the Super Bowl's. The confusion exhibited here in the hospital is probably a multifactorial delirium. Anticipate this will improve with treating his underlying illness. Agree with use of haloperidol. Given his age, we may want to see if a lower dose such as 1 mg May be equally effective. Daughter feels strongly that the patient's confusion is the result of medications we are giving the patient. She wants sedating medications minimized. I have tried to explain the importance of keeping the patient's safe and that he is likely to pull out his chest tube or IVs if we don't medicate him while confused. == Macrocytosis: Patient has a long history of alcohol abuse. Though his hemoglobin is relatively normal, may want to check B-12 or folate level. Deficiencies may impede his recovery. == If/when patient becomes awake and alert, we need to speak with him about his current condition and prognosis. We also need to discuss goals of medical treatment. We'll also leave a blank living will document at the bedside so daughter can also speak to him and at least have him designate a health care surrogate. == The daughter has not given me her brothers contact information. She tells me he may be coming into town and be available to meet with me and her on Too. She will let the nurses know as soon as she has more information when to expect him. Unless the patient is able to designate a health care surrogate , decision-making should technically fall to both the son and daughter. == If patient is awake, alert, and cognitively sharp and is able to verbally designate a health care surrogate, that should be witnessed by at least 2 health professionals and documented in the chart. == Palliative care we'll continue to follow to assist with symptom management and to further clarify goals of medical treatment as the clinical course evolves. . Time Spent Total Floor Time (mins): 80 (Total floor time included chart review, patient exam, collaboration with primary nurse, discussion with Dr. Sparks, and above referenced telephone conversation with patient's daughter. ) Face to Face Time (mins): 10 >50% Counseling/Coord of Care: Yes Thank you for the opportunity to participate in the care of Mr. Min . Attestation To help prompt me to consider important information that might be impacting today's encounter and assessment, information from prior notes written by myself or my colleagues may have been "brought forward" into today's note. My signature on this note, however, is an attestation that I personally performed the exam, history, and/or decision-making noted today, and, unless otherwise indicated, the interactions with patient, family, and staff as well as the review of records all occurred today. I also attest that the listed assessment and stated plan reflect my best clinical judgment today based on the combination of historical information, prior notes, and today's exam/ interactions. When time spent is documented, it refers only to time spent today by the signer, or if indicated, combined time spent today by collaborating physician/nurse practitioner. . Vignesh Garcia MD Oct 09, 2016 16:43
--- NOTE | 2016-10-09 22:11 | RADHPO ---
EXAM DATE/TIME: 10/09/2016 21:35 [facility] COMPARISON: CHEST SINGLE AP, October 09, 2016, 4:02. CT THORAX W/O CONTRAST, April 12, 2016, 11:55. INDICATIONS : Shortness of breath. RADIATION DOSE: 18.35 CTDIvol (mGy) MEDICAL HISTORY : Cardiovascular disease. Congestive heart failure. Hypertension. SURGICAL HISTORY : None. ENCOUNTER: Initial ACUITY: 1 day PAIN SCALE: 0/10 LOCATION: Chest TECHNIQUE: Volumetric scanning of the chest was performed. Using automated exposure control and adjustment of the mA and/or kV according to patient size, radiation dose was kept as low as reasonab ly achievable to obtain optimal diagnostic quality images. FINDINGS: The patient has mild to moderate pneumothorax seen anteriorly on the right. There is a chest tube in place in the pneumothorax. Significant midline shift is not seen. There is a moderat e left pleural effusion and a mild right pleural effusion. There is accompanying areas of suspected a telectasis seen throughout the left lower lung. Some degree of consolidation in the left lower lobe c annot be excluded. There is some patchy density seen in the medial right upper lobe. There is also s ome patchy areas of density seen at the posterior and lateral aspects of the right lower lobe and rig ht middle lobe. The patient does appear to have some debris or thickening at the proximal trachea po steriorly. This was not present on the prior exam making debris more likely. The heart size is enlarged. There is a mild pericardial effusion. CONCLUSION: 1. Mild to moderate right pneumothorax with a right-sided chest tube in place. There is a mild right pleural effusion. 2. Moderate left pleural effusion. There is accompanying areas of atelectasis or consolidation seen throughout the left lower lobe. 3. Cardiomegaly. There is a mild pericardial effusion. The enlargement of the heart is secondary to enlargement of the chambers. 4. Suspected debris at the posterior proximal trachea. Dhruv Allen MD on October 09, 2016 at 21:53 Board Certified Radiologist. This report was verified electronically.
[2016-10-10] VITALS (35 sets, daily range): BP systolic 100–158; BP diastolic 42–83; PULSE 68–89; RESP 20–73; TEMP 97.6–99; O2SAT 89–99
[2016-10-10] MEDS: HALOPERIDOL LACTATE 5 MG/ML AMP IM PRN ×2 (03:17→18:46)
[2016-10-10] MEDS: RESP: ALBUTEROL 2.5 MG/IPRATROPIUM 0.5 MG NEB (SCH) INH ×5 (03:26→19:20)
[2016-10-10] MEDS: CHLORHEXIDINE GLUCONATE 2 % 1 PACK (2 CLOTHS) TOP SCH (04:00)
[2016-10-10 05:29] LABS: AUTOMATED NEUTROPHIL # 5.4 TH/MM3 (1.8-7.7); BASOPHIL % 0.1 % (0.0-2.0); EOSINOPHIL # 0.1 TH/MM3 (0-0.4); EOSINOPHIL % 1.7 % (0.0-4.0); HEMATOCRIT 33.8 % (39.0-51.0); LYMPH % 11.6 % (9.0-44.0); LYMPHOCYTE # 0.8 TH/MM3 (1.0-4.8); MEAN CELL VOLUME 100.1 FL (80.0-100.0); MEAN CORPUSCULAR HEMOGLOBIN 32.5 PG (27.0-34.0); MEAN CORPUSCULAR HGB CONC 32.5 % (32.0-36.0); MONO % 10.6 % (0.0-8.0); PLATELET COUNT 75 TH/MM3 (150-450); RED BLOOD COUNT 3.38 MIL/MM3 (4.50-5.90); RED CELL DISTRIBUTION WIDTH 14.8 % (11.6-17.2); WHITE BLOOD COUNT 7.1 TH/MM3 (4.0-11.0)
[2016-10-10 05:33] LABS: HEMO FLAGS AUTO DIFF
[2016-10-10 05:43] LABS: POTASSIUM 4.1 MEQ/L (3.5-5.1)
[2016-10-10 05:46] LABS: INTERNATIONAL NORMALIZED RATIO 1.9 RATIO; PROTHROMBIN TIME - PATIENT 21.9 SEC (9.8-11.6)
[2016-10-10 05:48] LABS: MAGNESIUM 2.1 MG/DL (1.5-2.5)
[2016-10-10 05:55] LABS: PLATELET ESTIMATE SMEAR LOW (NORMAL); PLATELET MORPHOLOGY NORMAL (NORMAL); SCAN/DIFF AUTO DIFF CONFIRMED
[2016-10-10] MEDS: CAPTOPRIL 50 MG TAB PO SCH (09:18)
[2016-10-10] MEDS: ATENOLOL 50 MG TAB PO SCH ×2 (09:18→20:02)
[2016-10-10] MEDS: DOCUSATE SODIUM 100 MG CAP PO SCH ×2 (09:18→20:01)
[2016-10-10] MEDS: FUROSEMIDE 40 MG/4 ML VIAL IV PUSH SCH ×2 (09:19→16:59)
[2016-10-10] MEDS: POTASSIUM CHLORIDE 20 MEQ CONTROLLED RELEASE TAB PO SCH ×2 (09:19→20:01)
[2016-10-10] MEDS: FAMOTIDINE 20 MG/2 ML VIAL IV PUSH SCH ×2 (09:19→20:01)
[2016-10-10] MEDS: SODIUM CHLORIDE 0.9% FLUSH 5 ML FLUSH IV FLUSH SCH ×2 (09:20→20:01)
--- NOTE | 2016-10-10 09:47 | HHI.PR ---
Subjective Remarks Patient is alert and oriented this morning. He has been titrated down to 3 L nasal cannula. He denies dyspnea. No acute issues overnight per his nurse. Chest tube output 175 MLS over the 12 hour overnight stocker. Objective Vitals Vital Signs Date Time Temp Pulse Resp B/P Pulse Ox O2 Delivery O2 Flow Rate FiO2 10/10/16 07:41 93 Nasal Cannula 3.00 10/10/16 06:02 78 24 105/49 99 10/10/16 06:00 80 10/10/16 05:02 86 23 110/54 93 10/10/16 04:02 97.6 84 24 124/42 97 10/10/16 04:00 97 Nasal Cannula 3.00 10/10/16 04:00 75 10/10/16 03:00 89 22 125/63 95 10/10/16 02:02 82 22 118/58 97 10/10/16 02:00 73 10/10/16 01:02 84 27 112/59 94 10/10/16 00:02 99.0 80 26 110/52 96 10/10/16 00:00 76 10/10/16 00:00 95 Nasal Cannula 4.00 10/09/16 23:02 78 24 92/41 96 10/09/16 22:02 76 24 97/50 96 10/09/16 22:00 76 10/09/16 22:00 95 Nasal Cannula 4.00 10/09/16 21:02 78 21 102/47 96 10/09/16 20:01 98.4 84 28 103/49 92 10/09/16 20:00 74 10/09/16 20:00 92 Nasal Cannula 6.00 10/09/16 19:14 94 Nasal Cannula 6.00 10/09/16 19:01 80 30 129/57 95 10/09/16 18:00 74 10/09/16 18:00 78 28 116/25 97 10/09/16 17:01 76 22 114/57 94 10/09/16 16:01 98.4 72 28 119/57 96 10/09/16 16:00 70 10/09/16 15:01 74 31 121/57 96 10/09/16 14:01 80 27 107/60 94 10/09/16 14:00 76 10/09/16 13:01 74 20 94/44 99 10/09/16 13:00 72 10/09/16 12:48 72 19 104/51 93 10/09/16 12:01 98.1 74 29 96/21 97 10/09/16 12:00 76 10/09/16 11:01 78 21 120/62 94 10/09/16 11:00 76 10/09/16 10:01 76 51 114/53 99 10/09/16 10:00 78 I/O 10/09/16 10/09/16 10/09/16 10/10/16 10/10/16 10/10/16 07:00 15:00 23:00 07:00 15:00 23:00 Intake Total 120 ml 480 ml 320 ml 320 ml 540 ml Output Total 1000 ml 1950 ml 1070 ml 520 ml Balance -880 ml -1470 ml -750 ml -200 ml 540 ml Intake Oral 120 ml 480 ml 320 ml 320 ml 540 ml IV Total 0 ml 0 ml Output Urine Total 900 ml 1425 ml 900 ml 350 ml Chest Tube Drainage Total 100 ml 525 ml 170 ml 170 ml # Bowel Movements 0 0 0 0 Result Diagram: 10/10/16 0453 10/10/16 0453 Objective Remarks GENERAL: Well-developed, well-nourished elderly male HEENT: Head is normocephalic without any lesions or masses noted. Facial features are symmetric. Eyes: Extraocular muscles are intact. Conjunctivae were clear. NECK: Supple without any masses. Trachea midline no deviation. No JVD, CARDIAC: Regular rhythm, regular rate. S1/S2 are heard. No murmurs gallops or rubs. LUNGS: Diminished in the bases bilaterally. Nonlabored breathing on nasal cannula. Chest tube in place at right chest. ABDOMEN: Soft, nontender. Nondistended. Bowel sounds heard in all 4 quadrants. No organomegaly or masses. Negative rebound, negative guarding EXTREMITIES: No edema, pulses are equal bilaterally. No cyanosis or clubbing NEUROLOGY: Mood and affect appear appropriate. Cranial nerves II through XII grossly intact. Moving all extremities, speech is clear, alert and oriented 3. A/P Assessment and Plan Acute hypoxic/hypercapnic respiratory failure, due to right pleural effusion, acute diastolic CHF, chronic cor pulmonale/pulm HTN - improving. Patient is tolerating nasal cannula 3 L. Continue to titrate to keep O2 sats greater than 92% - Continue diuresis, diuresing well -Echocardiogram indicates ejection fraction 5560 percent. Systolic function was normal. Moderate aortic valve regurgitation. Mild to moderate mitral valve regurgitation. Severely dilated left and right atrium. Tricuspid valve severe regurgitation. Small pericardial effusion. PA peak pressure 85 mmhg -hold captopril due to hypotension Recurrent, Large right pleural effusion status post thoracentesis on October 06 with 3200 ml of clear yellow transudative fluid removed. With right pneumothorax Post thoracentesis- now resolved with chest tube which is draining the pleural effusion. --Chest CT reviewed today, I reviewed the images myself - still shows a right moderate anterior and inferior pneumothorax, small pleural effusion on the right , chest tube in place. -The chest tube is currently draining the pleural fluid. The pleural fluid output has decreased overnight. Pulmonology following for chest tube management. I discussed the patient with Dr. Castillo. Patient will likely need CT surgery evaluation for possible decortication if the drainage does not decrease sufficiently in order to resolve the pneumothorax by tomorrow. I will repeat chest x-ray in the morning. Chronic obstructive pulmonary disease with chronic CO2 retention. Continue O2 supplementation maintain O2 sats greater 92% Continue duo nebs, no wheezing on exam Sprinkling System Irrigator following the patient Chronic atrial fibrillation Continue Tenormin 50 mg by mouth twice a day. Coumadin continued, pharmacy consulted for Coumadin management INR 1.9 today. Mildly liver enzyme AST elevation. Improving Continue monitor Acute metabolic encephalopathy with agitation - improving. Patient's daughter feels that the sedation is causing it however the patient became anxious and confused and was trying to get out of bed. Soft restraints, low-dose Xanax and low-dose haldol IM as needed to prevent disruption of care DVT prophylaxis Patient on Coumadin Palliative care following. I discussed the patient with Dr. Garcia today. CODE STATUS full code. Patient states "I don't know" in relation to discussion regarding CPR and intubation and states he would like his daughter and son to be present for that discussion. I discussed with the patient who he would want as his healthcare surrogate with his ICU nurse Malik present. The patient stated he would like both his daughter and his son to make joint decisions on his behalf if he were incapacitated. Genoveva Sparks MD Oct 10, 2016 09:47
--- NOTE | 2016-10-10 15:29 | HHI.HCPN ---
Reason for visit a. To assist with evaluation and management of symptoms including: dyspnea; confusion; pain b. To assist medical decision maker(s) with: better understanding of current medical conditions; weighing benefits/burdens of medical treatment options; making medical treatment decisions. . Subjective/Interval History Mr. Duncan is sleepy, but arousable , at time of my visit. He opens his eyes, is able to answer a few questions, then quickly drifts off to sleep. He denies pain. He tells me his breathing is better. He understands that he has had fluid taken out from around his lungs again. He is too sleepy to engage in a meaningful goals of medical treatment conversation. When I ask who he would want to make medical decisions for him if he is unable to do so, he indicates he would like both of his kids to participate. I ask for his son's contact information and he is unable to give it to me. He does tell me that his son may be here the evening of 10/11/16. Chart reviewed and case discussed with Dr. Sparks. Chest CT is showing mild to moderate pneumothorax in addition to pleural effusion. Pulmonary is considering talc pleurodesis if drainage persists. Afebrile. Pulse irregular. BPs variable. RR 17-28. Satting OK at 02 via NC at 3 L/m Brisk diuresis continues -- negative fluid balance of almost 9 L. Weight is down 7 kg. Chest tube drained 865 mls. CBC stable. Renal function preserved. K+ nl. . Family/friend interactions No family/friends at bedside. Patient unable to give me son's contact information and daughter declined to provide it. . Advance Directives Living Will: Never completed Health Care Surrogate: Never completed Durable Power of Clinical Systems Educator: Completed, but not made available Advance Directive Specifics Date completed: The patient has completed a DURABLE POWER OF ROAD GANG SUPERVISOR document. Daughter does not believe this includes healthcare decision-making. Date of completion is unknown. 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 . Health Care Surrogate(s): No written designation of health care surrogacy. . Documented care wishes: No written documentation of health care goals/preferences. . Objective Vital Signs Date Time Temp Pulse Resp B/P Pulse Ox O2 Delivery O2 Flow Rate FiO2 10/10/16 13:00 97.9 82 28 135/83 91 10/10/16 12:30 97.9 82 28 135/83 91 10/10/16 12:21 97.9 82 28 135/83 91 10/10/16 12:00 82 10/10/16 12:00 93 Nasal Cannula 3.00 10/10/16 11:02 82 28 129/55 92 10/10/16 10:02 76 73 100/48 96 10/10/16 10:00 76 10/10/16 09:02 88 24 109/59 91 10/10/16 08:02 97.8 80 44 115/59 97 10/10/16 08:00 82 10/10/16 08:00 95 Nasal Cannula 3.00 10/10/16 07:41 93 Nasal Cannula 3.00 10/10/16 07:02 84 26 133/63 98 10/10/16 06:02 78 24 105/49 99 10/10/16 06:00 80 10/10/16 05:02 86 23 110/54 93 10/10/16 04:02 97.6 84 24 124/42 97 10/10/16 04:00 97 Nasal Cannula 3.00 10/10/16 04:00 75 10/10/16 03:00 89 22 125/63 95 10/10/16 02:02 82 22 118/58 97 10/10/16 02:00 73 10/10/16 01:02 84 27 112/59 94 10/10/16 00:02 99.0 80 26 110/52 96 10/10/16 00:00 76 10/10/16 00:00 95 Nasal Cannula 4.00 10/09/16 23:02 78 24 92/41 96 10/09/16 22:02 76 24 97/50 96 10/09/16 22:00 76 10/09/16 22:00 95 Nasal Cannula 4.00 10/09/16 21:02 78 21 102/47 96 10/09/16 20:01 98.4 84 28 103/49 92 10/09/16 20:00 74 10/09/16 20:00 92 Nasal Cannula 6.00 10/09/16 19:14 94 Nasal Cannula 6.00 10/09/16 19:01 80 30 129/57 95 10/09/16 18:00 74 10/09/16 18:00 78 28 116/25 97 10/09/16 17:01 76 22 114/57 94 10/09/16 16:01 98.4 72 28 119/57 96 10/09/16 16:00 70 Intake & Output 10/10/16 10/10/16 07:00 19:00 Intake Total 640 ml 540 ml Output Total 1590 ml Balance -950 ml 540 ml Intake Oral 640 ml 540 ml IV Total 0 ml Output Urine Total 1250 ml Chest Tube Drainage Total 340 ml # Bowel Movements 0 . Physical Exam CONSTITUTIONAL/GENERAL: This is frail appearing male looking his stated age. Arousable, but sleepy in MICU bed. No apparent distress. TUBES/LINES/DRAINS: Vital catheter; nasal cannula oxygen; soft wrist restraints ; right sided chest tube; peripheral IV SKIN: No jaundice, rashes. Ecchymoses on upper extremities. Chronic venous stasis changes on both lower extremities. Actinic damage noted in sun exposed areas. Skin temperature appropriate. Not diaphoretic. HEAD: Atraumatic. Normocephalic. EYES: Pupils equal and round. EOMs intact. No scleral icterus. No injection or drainage. Fundi not examined. ENT:Appears to hear me fine. CARDIOVASCULAR: Irregular rhythm without murmurs, gallops, or rubs. JVD is present. RESPIRATORY/CHEST: Symmetric, unlabored respirations. Left lung field is clear. Air movement much diminished on the right. Chest tube is present on the right. No wheezes, rales, or rhonchi. GASTROINTESTINAL: Abdomen soft, non-tender, nondistended. No hepato-splenomegaly , or palpable masses. No guarding. Bowel sounds present. GENITOURINARY: Without palpable bladder distension. Vital catheter in place. MUSCULOSKELETAL: Extremities without clubbing, cyanosis, edema. Chronic venous stasis changes apparent in both lower extremities. No calf tenderness. No mottling. LYMPHATICS: Not examined. NEUROLOGICAL: Awakens easily to voice, able to answer a few questions, but will drift off to sleep quickly. follows basic commands. Speech is understandable and appropriate. Moves all extremities. PSYCHIATRIC: No obvious anxiety/depression. No obvious hallucinations or other psychotic thought process. . . Diagnostic Tests Laboratory Laboratory Tests Test 10/08/16 10/09/16 10/10/16 16:24 05:00 04:53 Blood Gas Puncture Site LT RADIAL Blood Gas Patient Temperature 37.0 Blood Gas HCO3 39 mmol/L (22-26) Blood Gas Base Excess 13.1 mmol/L (-2-2) Blood Gas Oxygen Saturation 92 % (90-100) Arterial Blood pH 7.39 (7.380-7.420) Arterial Blood Partial 65 mmHg (38-42) Pressure CO2 Arterial Blood Partial 74 mmHg Pressure O2 (61-120) Arterial Blood Oxygen Content 14.9 Vol % (12.0-20.0) Arterial Blood 1.7 % (0-4) Carboxyhemoglobin Arterial Blood Methemoglobin 1.1 % (0-2) Blood Gas Hemoglobin 11.5 G/DL (12.0-16.0) Oxygen Delivery Device NASAL CANNULA Blood Gas Liter Flow 6 L/M Blood Gas Inspired Oxygen 44 % White Blood Count 9.3 TH/MM3 7.1 TH/MM3 (4.0-11.0) (4.0-11.0) Red Blood Count 3.58 MIL/MM3 3.38 MIL/MM3 (4.50-5.90) (4.50-5.90) Hemoglobin 12.0 GM/DL 11.0 GM/DL (13.0-17.0) (13.0-17.0) Hematocrit 36.7 % 33.8 % (39.0-51.0) (39.0-51.0) Mean Corpuscular Volume 102.7 FL 100.1 FL (80.0-100.0) (80.0-100.0) Mean Corpuscular Hemoglobin 33.6 PG 32.5 PG (27.0-34.0) (27.0-34.0) Mean Corpuscular Hemoglobin 32.7 % 32.5 % Concent (32.0-36.0) (32.0-36.0) Red Cell Distribution Width 16.2 % 14.8 % (11.6-17.2) (11.6-17.2) Platelet Count 80 TH/MM3 75 TH/MM3 (150-450) (150-450) Mean Platelet Volume 9.1 FL 8.2 FL (7.0-11.0) (7.0-11.0) Neutrophils (%) (Auto) 78.2 % 76.0 % (16.0-70.0) (16.0-70.0) Lymphocytes (%) (Auto) 9.3 % 11.6 % (9.0-44.0) (9.0-44.0) Monocytes (%) (Auto) 11.3 % 10.6 % (0.0-8.0) (0.0-8.0) Eosinophils (%) (Auto) 1.0 % (0.0-4.0) 1.7 % (0.0-4.0) Basophils (%) (Auto) 0.2 % (0.0-2.0) 0.1 % (0.0-2.0) Neutrophils # (Auto) 7.3 TH/MM3 5.4 TH/MM3 (1.8-7.7) (1.8-7.7) Lymphocytes # (Auto) 0.9 TH/MM3 0.8 TH/MM3 (1.0-4.8) (1.0-4.8) Monocytes # (Auto) 1.0 TH/MM3 0.8 TH/MM3 (0-0.9) (0-0.9) Eosinophils # (Auto) 0.1 TH/MM3 0.1 TH/MM3 (0-0.4) (0-0.4) Basophils # (Auto) 0.0 TH/MM3 0.0 TH/MM3 (0-0.2) (0-0.2) CBC Comment AUTO DIFF AUTO DIFF Differential Comment AUTO DIFF AUTO DIFF CONFIRMED CONFIRMED Platelet Estimate LOW (NORMAL) LOW (NORMAL) Platelet Morphology Comment NORMAL NORMAL (NORMAL) (NORMAL) Prothrombin Time 27.2 SEC 21.9 SEC (9.8-11.6) (9.8-11.6) Prothromb Time International 2.4 RATIO 1.9 RATIO Ratio Sodium Level 146 MEQ/L 145 MEQ/L (136-145) (136-145) Potassium Level 4.1 MEQ/L 4.1 MEQ/L (3.5-5.1) (3.5-5.1) Chloride Level 100 MEQ/L 98 MEQ/L (98-107) (98-107) Carbon Dioxide Level 41.3 MEQ/L 41.0 MEQ/L (21.0-32.0) (21.0-32.0) Anion Gap 5 MEQ/L (5-15) 6 MEQ/L (5-15) Blood Urea Nitrogen 26 MG/DL (7-18) 26 MG/DL (7-18) Creatinine 0.87 MG/DL 0.83 MG/DL (0.60-1.30) (0.60-1.30) Estimat Glomerular Filtration 84 ML/MIN (>89) 89 ML/MIN (>89) Rate Random Glucose 88 MG/DL 91 MG/DL (74-106) (74-106) Calcium Level 8.3 MG/DL 8.1 MG/DL (8.5-10.1) (8.5-10.1) Magnesium Level 2.1 MG/DL 2.1 MG/DL (1.5-2.5) (1.5-2.5) . Result Diagram: 10/10/16 0453 10/10/16 0453 Microbiology Microbiology Date/Time Procedure Status Source Growth 10/07/16 18:21 Gram Stain - Final Complete Fluid Pleural Fluid 10/07/16 18:21 Body Fluid Culture - Final Complete Fluid Pleural Fluid NO GROWTH IN 72 HRS.--AEROBICALLY OR ... . Imaging Last Impressions Chest CT 10/09/16 1710 Signed Impressions: Service Date/Time: Sunday, October 09, 2016 21:35 - CONCLUSION: 1. Mild to moderate right pneumothorax with a right-sided chest tube in place. There is a mild right pleural effusion. 2. Moderate left pleural effusion. There is accompanying areas of atelectasis or consolidation seen throughout the left lower lobe. 3. Cardiomegaly. There is a mild pericardial effusion. The enlargement of the heart is secondary to enlargement of the chambers. 4. Suspected debris at the posterior proximal trachea. Dhruv Allen MD Chest X-Ray 10/09/16 0600 Signed Impressions: Service Date/Time: Sunday, October 09, 2016 04:02 - CONCLUSION: 1. Cardiomegaly and findings of congestive heart failure. There has been no significant change when compared to the prior exam. 2. There is no evidence of pneumothorax. Jimi Chavez MD Head CT 10/06/16 0000 Signed Impressions: Service Date/Time: Thursday, October 06, 2016 16:27 - CONCLUSION: 1. No acute intracranial abnormalities. Stable small lacunar infarct on the right as above. Chaka Campos MD Cervical Spine CT 10/06/16 0000 Signed Impressions: Service Date/Time: Thursday, October 06, 2016 16:27 - CONCLUSION: 1. No acute findings in the cervical spine. Moderate degenerative disc disease but no significant canal stenosis. Large right pleural effusion noted at the right lung apex. Chaka Campos MD . Procedures * Thoracentesis/chest tube placement . Assessment and Plan Disease Oriented Problem List: (1) Congestive heart failure Comment: Patient has had congestive heart failure since the . Etiology of the congestive heart failure is unclear. Patient does have valvular heart disease with significant dilated right and left atria. No known history of severe ischemic disease. . (2) Pleural effusion, right Comment: Patient has recurrent pleural effusion probably secondary to his congestive heart failure. Has required at least 4 thoracenteses since March 2016. Currently with right chest tube in place. . (3) Chronic atrial fibrillation Comment: Patient has had atrial fibrillation as long as he can remember as an adult . (4) Pneumothorax (5) COPD (chronic obstructive pulmonary disease) Comment: Patient was a long-time smoker. Has been on 2 L a minute of nasal cannula oxygen at home . (6) Acute respiratory failure with hypoxia and hypercapnia Comment: Patient required BiPAP on arrival in the emergency department. Respiratory insufficiency was secondary to his underlying COPD and to his congestive heart failure with large pleural effusion. Now improving. . (7) Tricuspid regurgitation Comment: Tricuspid regurgitation rated as severe per echocardiogram . (8) Mitral regurgitation Comment: Mitral regurgitation rated as mild to moderate on echocardiogram . (9) Pulmonary artery hypertension Comment: Pulmonary artery peak pressure estimated at 85 mmHg on echocardiogram . (10) Macrocytosis Comment: Patient with long history of alcohol abuse. Hemoglobin is normal but there still may be underlying B-12 or folate deficiency. . (11) Stroke Comment: CT imaging shows a stroke. Daughter thinks this happened last summer. Only known sequellae is some difficulty finding words. . (12) Hypoalbuminemia Symptom Scale: (1) Pain 0-10 Scale: Unable to quantify Comment: Per daughter, patient had no prehospitalization pain syndromes. Possible discomfort here in hospital may be attributed to Vital catheter; wrist restraints; oxygen delivery mechanism; vascular access; chest tube; prolonged bedbound status. . (2) Confusion 0-10 Scale: Unable to quantify Comment: Patient reportedly is cognitively intact normally. Intermittent confusion here in the hospital is probably a multifactorial delirium. Improving. . (3) Dyspnea 0-10 Scale: Unable to quantify Comment: Patient's dyspnea is probably secondary to a combination of his underlying COPD; congestive heart failure; right pleural effusion. Improving.. . Pertinent Non-Medical Issues Psychosocial: Patient's primary psychosocial support comes from his daughter Raissa Duncan--who lives a few blocks from the patient. There is also a son who lives in [place] but has not seen the patient for about 5 years. Spiritual: Patient comes from the [place] tradition. Hindu and spirituality have not played an important role in his life. 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 She does not believe this includes healthcare decision-making. No known living will or written designation of health care surrogacy. Ethical issues impacting care: Patient is currently incapacitated to make his own health care decisions. It is likely he will regain capacity. . Important Contacts * Raissa Duncan (daughter) [phone] There is a son who lives in [place]. I do not have his name or contact information. . Prognosis This is an 81-year-old male with a several decades history of congestive heart failure complicated by underlying COPD, history of alcohol abuse. Patient has been declining since March 2016 particularly with recurrent right pleural effusions. He has required 4 thoracenteses since that time. Patient is now mostly homebound. He does remain ambulatory with a walker. There is no known ischemic heart disease and failure may be primarily due to valvular heart disease. There is severe tricuspid regurgitation. Patient has shown some improvement since thoracentesis. There is a reasonable chance he will continue to improve well enough to survive the hospitalization. Based on his history of the last few months, long-term prognosis is not good. Life expectancy is probably in the order of months. Patient would certainly be eligible for hospice services at such time as his goals become mostly comfort oriented. . Code Status: Full Code Plan == Code Status: Full code. We need to re-visit code status as soon as patient is awake and alert enough to weigh benefits/burdens of treatment options or as soon as son gets here to participate in the discussion. Patient' s chances of surviving a resuscitation attempt and returning to meaningful quality of life are quite poor. == Decision making : The patient is incapacitated to make his own health care decision at time of my visit, though is improving and is expected to regain capacity to do so. 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 Under [place] statutes, while the patient is incapacitated, healthcare decision-making would fall equally to both of his children, even though the son lives in [place] and has not been very involved. The daughter has not provided me with contact information for the son, however. Patient and daughter have indicated that son will be coming to visit the evening of 10/11/16. Once I have confirmation that son is indeed coming and I know when I can make plans to try and be present. == Goals of medical treatment: Patient has not completed a living will or specifically discussed goals of medical treatment with his daughter. Daughter has indicated that patient is rather selfish and self-centered and has stated that as long as he was comfortable and could watch TV he would probably want to stay on life support forever. We need to clarify goals as soon as patient is awake and alert enough to weigh benefits and burdens of treatment options. == Pain: Possible causes of pain are addressed above. Patient had no prehospital pain syndromes. He currently has an order for intravenous morphine sulfate at 2 mg every 2 hours when necessary pain level 6-10. That appears to be effective. No further recommendations at this time. == Dyspnea: Dyspnea is likely secondary to patient's congestive heart failure ; right pleural effusion; pneumothorax; and underlying COPD. Dyspnea is improving especially after thoracentesis. Currently appears comfortable on nasal cannula O2. As goals are considered aggressive until we hear otherwise, we'll minimize use of opiates or benzos in treating dyspnea. No further recommendations at this time. == Confusion: Per daughter, patient is normally quite cognitively sharp. 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 The confusion exhibited here in the hospital is probably a multifactorial delirium. Anticipate this will improve with treating his underlying illness. Agree with use of haloperidol. Given his age, we may want to see if a lower dose such as 1 mg May be equally effective. Daughter feels strongly that the patient's confusion is the result of medications we are giving the patient. She wants sedating medications minimized. I have tried to explain the importance of keeping the patient safe and that he is likely to pull out his chest tube or IVs if we don't medicate him while confused. Fortunately, delirium appears to be resolving. == Macrocytosis: Patient has a long history of alcohol abuse. Though his hemoglobin is relatively normal, may want to check B-12 or folate level. Deficiencies may impede his recovery. == The daughter has not given me her brothers contact information. She tells me he may be coming into town and be available to meet with me and her on Friday. She will let the nurses know as soon as she has more information when to expect him. I have asked the nurse to get the son's contact information from the patient when he is awake and alert enough to provide this. Unless the patient is able to designate a health care surrogate, decision-making should technically fall to both the son and daughter. == If patient is awake, alert, and cognitively sharp and is able to verbally designate a health care surrogate, that should be witnessed by at least 2 health professionals and documented in the chart. == Palliative care will continue to follow to assist with symptom management and to further clarify goals of medical treatment as the clinical course evolves. . Attestation To help prompt me to consider important information that might be impacting today's encounter and assessment, information from prior notes written by myself or my colleagues may have been "brought forward" into today's note. My signature on this note, however, is an attestation that I personally performed the exam, history, and/or decision-making noted today, and, unless otherwise indicated, the interactions with patient, family, and staff as well as the review of records all occurred today. I also attest that the listed assessment and stated plan reflect my best clinical judgment today based on the combination of historical information, prior notes, and today's exam/ interactions. When time spent is documented, it refers only to time spent today by the signer, or if indicated, combined time spent today by collaborating physician/nurse practitioner. . Vignesh Garcia MD Oct 10, 2016 15:29
[2016-10-10] MEDS: WARFARIN SOD 5 MG TAB PO SCH (16:59)
--- NOTE | 2016-10-10 18:22 | HHI.PR ---
Subjective Remarks Confused and agitated again . Chest tube drained >350 CC today. No fever. CT chest shows CHF changes.and a right Pneumothorax Objective Vital Signs Date Time Temp Pulse Resp B/P Pulse Ox O2 Delivery O2 Flow Rate FiO2 10/10/16 17:00 88 26 152/66 93 10/10/16 17:00 Simple Mask 6.00 10/10/16 16:00 74 10/10/16 16:00 96 Nasal Cannula 3.00 10/10/16 16:00 76 26 149/67 93 10/10/16 14:00 80 10/10/16 13:00 97.9 82 28 135/83 91 10/10/16 12:30 97.9 82 28 135/83 91 10/10/16 12:21 97.9 82 28 135/83 91 10/10/16 12:00 82 10/10/16 12:00 93 Nasal Cannula 3.00 10/10/16 11:02 82 28 129/55 92 10/10/16 10:02 76 73 100/48 96 10/10/16 10:00 76 10/10/16 09:02 88 24 109/59 91 10/10/16 08:02 97.8 80 44 115/59 97 10/10/16 08:00 82 10/10/16 08:00 95 Nasal Cannula 3.00 10/10/16 07:41 93 Nasal Cannula 3.00 10/10/16 07:02 84 26 133/63 98 10/10/16 06:02 78 24 105/49 99 10/10/16 06:00 80 10/10/16 05:02 86 23 110/54 93 10/10/16 04:02 97.6 84 24 124/42 97 10/10/16 04:00 97 Nasal Cannula 3.00 10/10/16 04:00 75 10/10/16 03:00 89 22 125/63 95 10/10/16 02:02 82 22 118/58 97 10/10/16 02:00 73 10/10/16 01:02 84 27 112/59 94 10/10/16 00:02 99.0 80 26 110/52 96 10/10/16 00:00 76 10/10/16 00:00 95 Nasal Cannula 4.00 10/09/16 23:02 78 24 92/41 96 10/09/16 22:02 76 24 97/50 96 10/09/16 22:00 76 10/09/16 22:00 95 Nasal Cannula 4.00 10/09/16 21:02 78 21 102/47 96 10/09/16 20:01 98.4 84 28 103/49 92 10/09/16 20:00 74 10/09/16 20:00 92 Nasal Cannula 6.00 10/09/16 19:14 94 Nasal Cannula 6.00 10/09/16 19:01 80 30 129/57 95 I/O 10/09/16 10/09/16 10/09/16 10/10/16 10/10/16 10/10/16 07:00 15:00 23:00 07:00 15:00 23:00 Intake Total 120 ml 480 ml 320 ml 320 ml 1580 ml Output Total 1000 ml 1950 ml 1070 ml 520 ml 1990 ml Balance -880 ml -1470 ml -750 ml -200 ml -410 ml Intake Oral 120 ml 480 ml 320 ml 320 ml 1580 ml IV Total 0 ml 0 ml 0 ml Output Urine Total 900 ml 1425 ml 900 ml 350 ml 1800 ml Chest Tube Drainage Total 100 ml 525 ml 170 ml 170 ml 190 ml # Bowel Movements 0 0 0 0 1 Result Diagram: 10/10/1645210/10/16452 Objective Remarks This elderly thinly built white male is pale and mildly dyspneic at rest. There is mild clubbing or cyanosis or icterus or lymphadenopathy. HEENT: Head normocephalic. Pupils are reactive and equal. Tongue is dry. Throat is clear. Nasal mucosa is clear. NECK: Supple with mild venous distension at 45 degrees. Trachea midline. No thyroid enlargement. CHEST: Equal movements with decreased excursions. Breath sounds diminished at the bases with occ wheezes bilaterally. Crackles heard at lung bases HEART: The heart sounds are irregular S1-S2. No murmur. No S3. ABDOMEN: Soft, protuberant. No masses or organomegaly or tenderness. Bowel sounds active. EXTREMITIES: Mild varicosities and decreased peripheral pulses and reflexes are 1+ with no gross motor deficits.Edema 1 + NEUROLOGIC: No focal deficit RECTAL: Exam is deferred. SKIN: No lesions. Assessment and Plan Assessment and Plan IMPRESSION 1. Large right pleural effusion with right basilar atelectasis. 2. CHF with ASHD 3. Atrial fibrillation 4. Hypertension 5. COPD and possible basilar pneumonia. Plan : 1. Chest tube to Drainage. 2. X ray chest in am 3. Nebs qid , Duoneb. 4. Haldol 1 mg tid prn. 5. Will wean O2 to 2 L. 6. S/Q Heparin BID. 7. Will consider doing Talc Pleurodesis if drainage persists. 8. Continue Lasix 40 mg IV BID Paulo Rooney MD Oct 10, 2016 18:22
[2016-10-10] MEDS: ALPRAZolam 0.25 MG TAB PO PRN (21:22)
[2016-10-11] VITALS (41 sets, daily range): BP systolic 99–172; BP diastolic 41–80; PULSE 62–92; RESP 23–43; TEMP 97.6–98.9; O2SAT 85–99
[2016-10-11] MEDS: CHLORHEXIDINE GLUCONATE 2 % 1 PACK (2 CLOTHS) TOP SCH (04:00)
[2016-10-11 05:38] LABS: INTERNATIONAL NORMALIZED RATIO 1.5 RATIO; PROTHROMBIN TIME - PATIENT 17.4 SEC (9.8-11.6)
--- NOTE | 2016-10-11 05:40 | RADHPO ---
EXAM DATE/TIME: 10/11/2016 05:02 [facility] COMPARISON: CHEST SINGLE AP, October 09, 2016, 4:02. INDICATIONS : Shortness of breath MEDICAL HISTORY : Congestive heart failure. Chronic obstructive pulmonary disease. Hypercholesterolemia. Stroke, A-fib. SURGICAL HISTORY : None. ENCOUNTER: Subsequent ACUITY: 4 - 6 days PAIN SCORE: Non-responsive. LOCATION: Bilateral chest FINDINGS: The cardiac silhouette is enlarged in transverse diameter. There are findings of congestive heart [place] with interstitial and alveolar opacity bilaterally. A right chest tube is in place. There is no evidence of pneumothorax. Moderate size bilateral pleural effusions are identified. CONCLUSION: 1. Cardiomegaly and findings of congestive heart failure. There has been no significant change when c ompared to the prior exam. Jimi Chavez MD on October 11, 2016 at 5:38 Board Certified Radiologist. This report was verified electronically.
[2016-10-11] MEDS: SODIUM CHLORIDE 0.9% FLUSH 5 ML FLUSH IV FLUSH SCH ×2 (08:34→21:38)
[2016-10-11] MEDS: FAMOTIDINE 20 MG/2 ML VIAL IV PUSH SCH ×2 (08:35→21:38)
[2016-10-11] MEDS: ALPRAZolam 0.25 MG TAB PO PRN ×2 (08:35→21:44)
[2016-10-11] MEDS: ATENOLOL 50 MG TAB PO SCH ×2 (08:35→21:39)
[2016-10-11] MEDS: FUROSEMIDE 40 MG/4 ML VIAL IV PUSH SCH ×2 (08:35→18:12)
[2016-10-11] MEDS: POTASSIUM CHLORIDE 20 MEQ CONTROLLED RELEASE TAB PO SCH ×2 (08:35→21:39)
[2016-10-11] MEDS: DOCUSATE SODIUM 100 MG CAP PO SCH ×2 (08:35→21:39)
--- NOTE | 2016-10-11 12:52 | HHI.PR ---
Subjective Remarks Patient seen and examined today. Patient denies any new complaints. Patient was decreased down to 2 L nasal cannula however dropped O2 saturations 87%. Increased back up to 3 L with 94%. Patient still having episodes of agitation and tries to pull out his chest tube. This afternoon at 240 he began to desat and was increased to 6 L and then had to be put on a nonrebreather mask. He has had 200 cc of output from the chest tube since 7 AM this morning. Objective Vitals Vital Signs Date Time Temp Pulse Resp B/P Pulse Ox O2 Delivery O2 Flow Rate FiO2 10/11/16 12:00 96 Nasal Cannula 3.00 Humidified 10/11/16 10:15 88 10/11/16 10:01 76 24 134/69 94 10/11/16 09:01 84 24 150/68 92 10/11/16 08:01 82 28 136/65 94 10/11/16 08:00 79 10/11/16 08:00 93 Nasal Cannula 3.00 10/11/16 07:45 94 Nasal Cannula 3.00 10/11/16 07:30 98.7 78 28 91 10/11/16 06:07 75 10/11/16 06:01 76 25 102/48 96 10/11/16 05:49 99 Nasal Cannula 2.00 10/11/16 05:01 74 23 99/45 95 10/11/16 04:01 98.9 78 25 102/44 95 10/11/16 04:00 95 Nasal Cannula 3.00 10/11/16 04:00 72 10/11/16 03:01 76 23 116/48 95 10/11/16 02:01 78 28 110/50 96 10/11/16 02:00 73 10/11/16 01:01 78 30 129/54 94 10/11/16 00:01 98.3 72 28 106/51 95 10/11/16 00:00 72 10/11/16 00:00 95 Nasal Cannula 3.00 10/10/16 23:01 72 22 122/59 94 10/10/16 22:16 77 10/10/16 22:01 78 22 121/57 93 10/10/16 21:01 84 23 121/68 92 10/10/16 20:01 97.8 86 26 116/54 97 10/10/16 20:00 96 Nasal Cannula 3.00 10/10/16 20:00 68 10/10/16 19:20 98 Nasal Cannula 4.00 10/10/16 19:01 76 20 105/58 98 10/10/16 18:00 88 31 158/74 92 10/10/16 17:00 88 26 152/66 93 10/10/16 17:00 Simple Mask 6.00 10/10/16 16:00 74 10/10/16 16:00 96 Nasal Cannula 3.00 10/10/16 16:00 76 26 149/67 93 10/10/16 14:00 80 10/10/16 13:00 82 28 135/83 91 I/O 10/10/16 10/10/16 10/10/16 10/11/16 10/11/16 10/11/16 07:00 15:00 23:00 07:00 15:00 23:00 Intake Total 320 ml 1580 ml 620 ml 120 ml Output Total 520 ml 1990 ml 1380 ml 700 ml 450 ml Balance -200 ml -410 ml -760 ml -580 ml -450 ml Intake Oral 320 ml 1580 ml 620 ml 120 ml IV Total 0 ml Output Urine Total 350 ml 1800 ml 900 ml 500 ml 450 ml Chest Tube Drainage Total 170 ml 190 ml 480 ml 200 ml # Bowel Movements 0 1 1 0 Result Diagram: 10/10/1645210/10/163 Objective Remarks GENERAL: Well-developed, well-nourished elderly male HEENT: Head is normocephalic without any lesions or masses noted. Facial features are symmetric. Eyes: Extraocular muscles are intact. Conjunctivae were clear. NECK: Supple without any masses. Trachea midline no deviation. No JVD, CARDIAC: Regular rhythm, regular rate. S1/S2 are heard. No murmurs gallops or rubs. LUNGS: Diminished in the bases bilaterally. Mildly labored breathing on nonrebreather mask. Chest tube in place at right chest. ABDOMEN: Soft, nontender. Nondistended. Bowel sounds heard in all 4 quadrants. No organomegaly or masses. Negative rebound, negative guarding EXTREMITIES: Chronic venous stasis changes of the bilateral lower extremities with trace pedal edema. NEUROLOGY: Somewhat lethargic but awake and alert. Urinary Catheter: No Vascular Central Line Catheter: No A/P Assessment and Plan Acute hypoxic/hypercapnic respiratory failure, due to right pleural effusion, acute diastolic congestive heart failure, chronic cor pulmonale/pulmonary hypertension, worsening again this afternoon now on nonrebreather facemask -I will order a stat chest x-ray, stat ABG Continue diuresis Continue captopril, atenolol, Lasix Echocardiogram indicates ejection fraction 5560 percent. Systolic function was normal. Moderate aortic valve regurgitation. Mild to moderate mitral valve regurgitation. Severely dilated left and right atrium. Tricuspid valve severe regurgitation. Small pericardial effusion. PA peak pressure 85 mmhg. Plant Anatomy Teacher consulted for recommendations Recurrent, Large right pleural effusion status post thoracentesis on October 06 with 3200 ml of clear yellow transudative fluid removed. Right pneumothorax Post thoracentesis-he has chest tube with persistent pneumothorax however the chest tube is draining significant amounts of pleural fluid and is not likely adequate to reinflate the lung. Pulmonology following for chest tube management. There has been no sign of decrease and pleural fluid output. Patient will likely need CT surgery to evaluate for possible decortication. Acute metabolic encephalopathy with agitation - improving. Patient's daughter feels that the sedation is causing it however the patient became anxious and confused and was trying to get out of bed, pulling out chest tube. Soft restraints, low-dose Xanax and low-dose haldol IM as needed to prevent disruption of care - Discussed with nurse Mirian to only use the Xanax or Haldol if verbal attempts to calm the patient do not succeed. Chronic obstructive pulmonary disease with chronic CO2 retention. Continue O2 supplementation maintain O2 sats greater 92% Continue presleyo ciara Plant Anatomy Teacher following the patient Chronic atrial fibrillation Beta eileen continued Coumadin continued, pharmacy consulted for Coumadin management Mildly liver enzyme elevation. Improving Continue monitor DVT prophylaxis SCDs Patient on Coumadin INR CODE STATUS full code. Guarded prognosis. Palliative care is following the patient. Written by Poli Brody PA-C, acting as scribe for Dr. Sparks on 10/11/16 at 15:45. The documentation accurately reflects the work and decisions performed face-to- face by Dr. Sparks on 10/11/16 at 15:45. Poli Brody Oct 11, 2016 12:52 Genoveva Sparks MD Oct 11, 2016 15:47
--- NOTE | 2016-10-11 15:58 | RADHPO ---
EXAM DATE/TIME: 10/11/2016 15:48 [facility] COMPARISON: CHEST SINGLE AP, October 11, 2016, 5:02. INDICATIONS : Shortness of breath. MEDICAL HISTORY : Cardiovascular disease. Congestive heart failure. Hypertension. SURGICAL HISTORY : None. ENCOUNTER: Subsequent ACUITY: 4 - 6 days PAIN SCORE: 0/10 LOCATION: Bilateral chest FINDINGS: Chest tube is in good position on the right. The heart is enlarged. There is moderate interstitial e sofía present. A small left pleural effusion is noted. CONCLUSION: 1. Cardiomegaly with interstitial edema. 2. Right chest tube in good position. Kun Mendoza MD FACR on October 11, 2016 at 15:54 Board Certified Radiologist. This report was verified electronically.
[2016-10-11] MEDS ORDERED: WARFARIN SOD 7.5 MG TAB PO ONE (16:00)
[2016-10-11] MEDS: RESP: ALBUTEROL 2.5 MG/IPRATROPIUM 0.5 MG NEB (SCH) NEB ×2 (16:24→19:44)
[2016-10-11 16:27] LABS: POTASSIUM 4.4 MEQ/L (3.5-5.1)
[2016-10-11 16:30] LABS: BICARBONATE 43.5 MEQ/L (21.0-32.0)
[2016-10-11] MEDS ORDERED: FUROSEMIDE 100 MG/10 ML VIAL IV PUSH ONE (16:30)
[2016-10-11 16:36] LABS: BLOOD GAS BASE EXCESS 16.5 mmol/L (-2-2); BLOOD GAS CARBOXYHEMOGLOBIN 1.7 % (0-4); BLOOD GAS HCO3 43 mmol/L (22-26); BLOOD GAS METHEMOGLOBIN 0.7 % (0-2); BLOOD GAS O2 HGB SATURATION 97 % (90-100); BLOOD GAS PCO2 87 mmHg (38-42); BLOOD GAS PO2 241 mmHg (61-120)
[2016-10-11 16:38] LABS: CRITICAL VALUE YES; DRAW SITE RT RADIAL; LITER FLOW 10 L/M; NUMBER OF ARTERIAL PUNCTURES 1; OXYGEN DEVICE PRB; STAT YES; ULNAR PULSE PRESENT
--- NOTE | 2016-10-11 17:16 | HHI.HCPN ---
Reason for visit a. To assist with evaluation and management of symptoms including: dyspnea; confusion; pain b. To assist medical decision maker(s) with: better understanding of current medical conditions; weighing benefits/burdens of medical treatment options; making medical treatment decisions. . Subjective/Interval History Mr. Duncan is awake at time of my visit. He has just been transitioned from nasal cannula 02 to a non-rebreather. ABGs done at 16:26 came back at pH 7.32; pCO2 87; PO2 241; HCO3 43; base excess 16.5 Patient denies pain. He has been somewhat agitated per primary nurse and intermittently confuses. She had tried to release one of his restraints but he quickly tried to pull his allen out. Staff has tried, per daughter request, to minimize any sedating meds or neuroleptics but it has been very challenging to keep him safe and his VS and 02 sats are challenged when he struggles. As patient had indicated on two separate occasions that he wanted his son to participate in his medical decision making , and the patient was awake enough to answer some questions, I asked him for his son's name and phone number. He told me his son's name was Anselmo. I asked for his phone number and he got his cell phone. I was able to call and speak to Anselmo who was on his way driving her. Afebrile. Continues in negative fluid balance with over 3200 mls of urine and 870 of chest tube drainage. Chest tube drained about 250 cc in last 10 hours per ;primary nurse. Renal function stable. CXR w/o significant change. . Family/friend interactions Spoke with son, Anselmo, for about 20 minutes via telephone. Anselmo is en route to visit his father. He is expected in town this evening but has to leave on Friday. We reviewed his father's current condition and prognosis. We discussed his father's desire to have both his children participate in health care decision making if he were unable to . We discussed the possible need for a procedure like talc pleurodesis to control the recurrent pleural effusion. We discussed the importance of making a decision regarding resuscitation status. I let him know that should cardiopulmonary resuscitation be necessary, the chances of his father returning to any type of independent life were remote even if he were able to survive the hospitalization. Anselmo was not aware of any advance directives and was not aware of any power of mail sorting supervisor documents. We discussed options of aggressive care vs comfort care and the option of hospice care if they chose the comfort oriented route. I reassured Anselmo that the medical team wanted to understand and honor his fathers' wishes whether the goals remained aggressive or were comfort oriented. Anselmo expressed his gratitude for the call and indicated he would speak with his sister (and his father if able to participate) this weekend and try and make some of these decisions. . Advance Directives Living Will: Never completed Health Care Surrogate: Never completed Durable Power of Phosphatic Fertilizer Supervisor: Completed, but not made available Advance Directive Specifics Date completed: The patient has completed a DURABLE POWER OF EMERGENCY MEDICINE NURSE PRACTITIONER document. Daughter does not believe this includes healthcare decision-making. Date of completion is unknown. Daughter tells me she has legal/financial power of mail sorting supervisor. . Health Care Surrogate(s): No written designation of health care surrogacy. Patient , has on several occasions, verbally stated that he wants BOTH of his childrent to participate in health care decision making if he is incapacitated to do so. . . Documented care wishes: No written documentation of health care goals/preferences. . Objective Vital Signs Date Time Temp Pulse Resp B/P Pulse Ox O2 Delivery O2 Flow Rate FiO2 10/11/16 12:01 97.8 68 23 114/59 96 10/11/16 12:00 96 Nasal Cannula 3.00 Humidified 10/11/16 12:00 62 10/11/16 11:01 74 35 131/61 93 10/11/16 10:15 88 10/11/16 10:01 76 32 134/69 94 10/11/16 10:01 76 24 134/69 94 10/11/16 09:01 84 24 150/68 92 10/11/16 08:01 82 28 136/65 94 10/11/16 08:00 79 10/11/16 08:00 93 Nasal Cannula 3.00 10/11/16 07:45 94 Nasal Cannula 3.00 10/11/16 07:30 98.7 78 28 91 10/11/16 06:07 75 10/11/16 06:01 76 25 102/48 96 10/11/16 05:49 99 Nasal Cannula 2.00 10/11/16 05:01 74 23 99/45 95 10/11/16 04:01 98.9 78 25 102/44 95 10/11/16 04:00 95 Nasal Cannula 3.00 10/11/16 04:00 72 10/11/16 03:01 76 23 116/48 95 10/11/16 02:01 78 28 110/50 96 10/11/16 02:00 73 10/11/16 01:01 78 30 129/54 94 10/11/16 00:01 98.3 72 28 106/51 95 10/11/16 00:00 72 10/11/16 00:00 95 Nasal Cannula 3.00 10/10/16 23:01 72 22 122/59 94 10/10/16 22:16 77 10/10/16 22:01 78 22 121/57 93 10/10/16 21:01 84 23 121/68 92 10/10/16 20:01 97.8 86 26 116/54 97 10/10/16 20:00 96 Nasal Cannula 3.00 10/10/16 20:00 68 10/10/16 19:20 98 Nasal Cannula 4.00 10/10/16 19:01 76 20 105/58 98 10/10/16 18:00 88 31 158/74 92 Intake & Output 10/11/16 10/11/16 07:00 19:00 Intake Total 740 ml Output Total 2080 ml 450 ml Balance -1340 ml -450 ml Intake Oral 740 ml Output Urine Total 1400 ml 450 ml Chest Tube Drainage Total 680 ml # Bowel Movements 1 . Physical Exam CONSTITUTIONAL/GENERAL: This is frail appearing male looking his stated age. Awake. Able to answer simple questions. Intermittently confused. Intermittently agitated/restless. TUBES/LINES/DRAINS: Allen catheter;Venti-mask; soft wrist restraints; right sided chest tube; peripheral IV SKIN: No jaundice, rashes. Ecchymoses on upper extremities. Chronic venous stasis changes on both lower extremities. Actinic damage noted in sun exposed areas. Skin temperature appropriate. Not diaphoretic. HEAD: Atraumatic. Normocephalic. EYES: Pupils equal and round. EOMs intact. No scleral icterus. No injection or drainage. Fundi not examined. ENT:Appears to hear me fine. CARDIOVASCULAR: Irregular rhythm without murmurs, gallops, or rubs. JVD is present. RESPIRATORY/CHEST: Symmetric, unlabored respirations. Left lung field is clear. Air movement much diminished on the right. Chest tube is present on the right. No wheezes, rales, or rhonchi heard. GASTROINTESTINAL: Abdomen soft, non-tender, nondistended. No hepato-splenomegaly , or palpable masses. No guarding. Bowel sounds present. GENITOURINARY: Without palpable bladder distension. Allen catheter in place. MUSCULOSKELETAL: Extremities without clubbing, cyanosis, edema. Chronic venous stasis changes apparent in both lower extremities. No calf tenderness. No mottling. LYMPHATICS: Not examined. NEUROLOGICAL: Awake, verbal, follows basic commands, answers a few simple questions appropriately. Intermittent confusion apparent. Intermittent agitation/restlessness.. Moves all extremities. PSYCHIATRIC: No obvious anxiety/depression. No obvious hallucinations or other psychotic thought process. . . Diagnostic Tests Laboratory Laboratory Tests Test 10/09/16 10/10/16 10/11/16 10/11/16 05:00 04:53 04:55 16:02 White Blood Count 9.3 TH/MM3 7.1 TH/MM3 (4.0-11.0) (4.0-11.0) Red Blood Count 3.58 MIL/MM3 3.38 MIL/MM3 (4.50-5.90) (4.50-5.90) Hemoglobin 12.0 GM/DL 11.0 GM/DL (13.0-17.0) (13.0-17.0) Hematocrit 36.7 % 33.8 % (39.0-51.0) (39.0-51.0) Mean Corpuscular Volume 102.7 FL 100.1 FL (80.0-100.0) (80.0-100.0) Mean Corpuscular Hemoglobin 33.6 PG 32.5 PG (27.0-34.0) (27.0-34.0) Mean Corpuscular Hemoglobin 32.7 % 32.5 % Concent (32.0-36.0) (32.0-36.0) Red Cell Distribution Width 16.2 % 14.8 % (11.6-17.2) (11.6-17.2) Platelet Count 80 TH/MM3 75 TH/MM3 (150-450) (150-450) Mean Platelet Volume 9.1 FL 8.2 FL (7.0-11.0) (7.0-11.0) Neutrophils (%) (Auto) 78.2 % 76.0 % (16.0-70.0) (16.0-70.0) Lymphocytes (%) (Auto) 9.3 % 11.6 % (9.0-44.0) (9.0-44.0) Monocytes (%) (Auto) 11.3 % 10.6 % (0.0-8.0) (0.0-8.0) Eosinophils (%) (Auto) 1.0 % (0.0-4.0) 1.7 % (0.0-4.0) Basophils (%) (Auto) 0.2 % (0.0-2.0) 0.1 % (0.0-2.0) Neutrophils # (Auto) 7.3 TH/MM3 5.4 TH/MM3 (1.8-7.7) (1.8-7.7) Lymphocytes # (Auto) 0.9 TH/MM3 0.8 TH/MM3 (1.0-4.8) (1.0-4.8) Monocytes # (Auto) 1.0 TH/MM3 0.8 TH/MM3 (0-0.9) (0-0.9) Eosinophils # (Auto) 0.1 TH/MM3 0.1 TH/MM3 (0-0.4) (0-0.4) Basophils # (Auto) 0.0 TH/MM3 0.0 TH/MM3 (0-0.2) (0-0.2) CBC Comment AUTO DIFF AUTO DIFF Differential Comment AUTO DIFF AUTO DIFF CONFIRMED CONFIRMED Platelet Estimate LOW (NORMAL) LOW (NORMAL) Platelet Morphology Comment NORMAL NORMAL (NORMAL) (NORMAL) Prothrombin Time 27.2 SEC 21.9 SEC 17.4 SEC (9.8-11.6) (9.8-11.6) (9.8-11.6) Prothromb Time International 2.4 RATIO 1.9 RATIO 1.5 RATIO Ratio Sodium Level 146 MEQ/L 145 MEQ/L 142 MEQ/L (136-145) (136-145) (136-145) Potassium Level 4.1 MEQ/L 4.1 MEQ/L 4.4 MEQ/L (3.5-5.1) (3.5-5.1) (3.5-5.1) Chloride Level 100 MEQ/L 98 MEQ/L 96 MEQ/L (98-107) (98-107) (98-107) Carbon Dioxide Level 41.3 MEQ/L 41.0 MEQ/L 43.5 MEQ/L (21.0-32.0) (21.0-32.0) (21.0-32.0) Anion Gap 5 MEQ/L (5-15) 6 MEQ/L (5-15) 3 MEQ/L (5-15) Blood Urea Nitrogen 26 MG/DL (7-18) 26 MG/DL (7-18) 22 MG/DL (7-18) Creatinine 0.87 MG/DL 0.83 MG/DL 0.85 MG/DL (0.60-1.30) (0.60-1.30) (0.60-1.30) Estimat Glomerular Filtration 84 ML/MIN (>89) 89 ML/MIN (>89) 87 ML/MIN (>89) Rate Random Glucose 88 MG/DL 91 MG/DL 133 MG/DL (74-106) (74-106) (74-106) Calcium Level 8.3 MG/DL 8.1 MG/DL 8.2 MG/DL (8.5-10.1) (8.5-10.1) (8.5-10.1) Magnesium Level 2.1 MG/DL 2.1 MG/DL (1.5-2.5) (1.5-2.5) Test 10/11/16 16:26 Blood Gas Puncture Site RT RADIAL Blood Gas Patient Temperature 37.0 Blood Gas HCO3 43 mmol/L (22-26) Blood Gas Base Excess 16.5 mmol/L (-2-2) Blood Gas Oxygen Saturation 97 % (90-100) Arterial Blood pH 7.32 (7.380-7.420) Arterial Blood Partial 87 mmHg (38-42) Pressure CO2 Arterial Blood Partial 241 mmHg Pressure O2 (61-120) Arterial Blood Oxygen Content 17.0 Vol % (12.0-20.0) Arterial Blood 1.7 % (0-4) Carboxyhemoglobin Arterial Blood Methemoglobin 0.7 % (0-2) Blood Gas Hemoglobin 12.0 G/DL (12.0-16.0) Oxygen Delivery Device PRB Blood Gas Liter Flow 10 L/M . Result Diagram: 10/10/16 0453 10/11/16 1602 Microbiology Microbiology Date/Time Procedure Status Source Growth 10/07/16 18:21 Gram Stain - Final Complete Fluid Pleural Fluid 10/07/16 18:21 Body Fluid Culture - Final Complete Fluid Pleural Fluid NO GROWTH IN 72 HRS.--AEROBICALLY OR ... . Imaging Last Impressions Chest X-Ray 10/11/16 0600 Signed Impressions: Service Date/Time: Tuesday, October 11, 2016 05:02 - CONCLUSION: 1. Cardiomegaly and findings of congestive heart failure. There has been no significant change when compared to the prior exam. Jimi Chavez MD Chest CT 10/09/16 1710 Signed Impressions: Service Date/Time: Sunday, October 09, 2016 21:35 - CONCLUSION: 1. Mild to moderate right pneumothorax with a right-sided chest tube in place. There is a mild right pleural effusion. 2. Moderate left pleural effusion. There is accompanying areas of atelectasis or consolidation seen throughout the left lower lobe. 3. Cardiomegaly. There is a mild pericardial effusion. The enlargement of the heart is secondary to enlargement of the chambers. 4. Suspected debris at the posterior proximal trachea. Dhruv Allen MD Head CT 10/06/16 0000 Signed Impressions: Service Date/Time: Thursday, October 06, 2016 16:27 - CONCLUSION: 1. No acute intracranial abnormalities. Stable small lacunar infarct on the right as above. Chaka Campos MD Cervical Spine CT 10/06/16 0000 Signed Impressions: Service Date/Time: Thursday, October 06, 2016 16:27 - CONCLUSION: 1. No acute findings in the cervical spine. Moderate degenerative disc disease but no significant canal stenosis. Large right pleural effusion noted at the right lung apex. Chaka Campos MD . Procedures * Thoracentesis/chest tube placement . Assessment and Plan Disease Oriented Problem List: (1) Congestive heart failure Comment: Patient has had congestive heart failure since the . Etiology of the congestive heart failure is unclear. Patient does have valvular heart disease with significant dilated right and left atria. No known history of severe ischemic disease. . (2) Pleural effusion, right Comment: Patient has recurrent pleural effusion probably secondary to his congestive heart failure. Has required at least 4 thoracenteses since March 2016. Currently with right chest tube in place. Pulmonary has suggested that patient may need talc pleurodesis. . . (3) Chronic atrial fibrillation Comment: Patient has had atrial fibrillation as long as he can remember as an adult . (4) Pneumothorax (5) COPD (chronic obstructive pulmonary disease) Comment: Patient was a long-time smoker. Has been on 2 L a minute of nasal cannula oxygen at home . (6) Acute respiratory failure with hypoxia and hypercapnia Comment: Patient required BiPAP on arrival in the emergency department. Respiratory insufficiency was secondary to his underlying COPD and to his congestive heart failure with large pleural effusion. Now improving. . (7) Tricuspid regurgitation Comment: Tricuspid regurgitation rated as severe per echocardiogram . (8) Mitral regurgitation Comment: Mitral regurgitation rated as mild to moderate on echocardiogram . (9) Pulmonary artery hypertension Comment: Pulmonary artery peak pressure estimated at 85 mmHg on echocardiogram . (10) Macrocytosis Comment: Patient with long history of alcohol abuse. Hemoglobin is normal but there still may be underlying B-12 or folate deficiency. . (11) Stroke Comment: CT imaging shows a stroke. Daughter thinks this happened last summer. Only known sequellae is some difficulty finding words. . (12) Hypoalbuminemia Symptom Scale: (1) Pain 0-10 Scale: Unable to quantify Comment: Per daughter, patient had no prehospitalization pain syndromes. Possible discomfort here in hospital may be attributed to Allen catheter; wrist restraints; oxygen delivery mechanism; vascular access; chest tube; prolonged bedbound status. . (2) Confusion 0-10 Scale: Unable to quantify Comment: Patient reportedly is cognitively intact normally. Intermittent confusion here in the hospital is probably a multifactorial delirium. Patient can get quite agitated/confused and threaten his own safety. Daughter is angry at staff for using any sedating medications. . (3) Dyspnea 0-10 Scale: Unable to quantify Comment: Patient's dyspnea is probably secondary to a combination of his underlying COPD; congestive heart failure; right pleural effusion. Improving.. . Pertinent Non-Medical Issues Psychosocial: Patient's primary psychosocial support comes from his daughter Raissa Duncan--who lives a few blocks from the patient. There is also a son who lives in [place] but has not seen the patient for about 5 years. Son--Anselmo Duncan -- is scheduled to arrive the evening of 10/11/16. Spiritual: Patient comes from the [employer] tradition. Evangelical and spirituality have not played an important role in his life. Legal: Daughter reports that there is documentation listing her as having legal/ financial power of mail sorting supervisor. She does not believe this includes healthcare decision-making. No known living will or written designation of health care surrogacy. Ethical issues impacting care: Patient is currently incapacitated to make his own health care decisions. It is likely he will regain capacity. . Important Contacts * Anselmo uDncan (son) [phone] * Raissa Duncan (daughter) [phone] . Prognosis This is an 81-year-old male with a several decades history of congestive heart failure complicated by underlying COPD, history of alcohol abuse. Patient has been declining since March 2016 particularly with recurrent right pleural effusions. He has required 4 thoracenteses since that time. Patient is now mostly homebound. He does remain ambulatory with a walker. There is no known ischemic heart disease and failure may be primarily due to valvular heart disease. There is severe tricuspid regurgitation. Patient has shown some improvement since thoracentesis but 02 needs continue to vary greatly and he has intermittent delirium. There is a reasonable chance he will continue to improve well enough to survive the hospitalization. Based on his history of the last few months, long-term prognosis is not good. Life expectancy is probably in the order of months. Patient would certainly be eligible for hospice services at such time as his goals become mostly comfort oriented. . Code Status: Full Code Plan == Code Status: Full code. I have asked both children to consider code status when they meet together this weekend. Should the patient need cardiopulmonary resuscitation, I believe his chances of meaningful recovery and independence are quite low. == Decision making : The patient is incapacitated to make his own health care decision at time of my visit, though based on prior experience he is expected to regain capacity to do so. The daughter reportedly has legal/financial power of mail sorting supervisor but there is no evidence that this includes healthcare decision- making. Under [place] statutes, while the patient is incapacitated, healthcare decision-making would fall equally to both of his children, even though the son lives in [place] and has not been very involved. On several occasions, the patient has said that he wants BOTH children to participate in health care decision making if he is unable to do so. == Goals of medical treatment: Patient has not completed a living will or specifically discussed goals of medical treatment with either son or daughter. Daughter has indicated that patient is rather selfish and self-centered and has stated that as long as he was comfortable and could watch TV he would probably want to stay on life support forever. Son and daughter will be together in town 10/12 and 10/13. Hopefully, patient will be awake/alert enough to guide them on goals , if not hopefully the kids can agree on goals. == Pain: Possible causes of pain are addressed above. Patient had no prehospital pain syndromes. He currently has an order for intravenous morphine sulfate at 2 mg every 2 hours when necessary pain level 6-10. That appears to be effective. No further recommendations at this time. == Dyspnea: Dyspnea is likely secondary to patient's congestive heart failure ; right pleural effusion; pneumothorax; and underlying COPD. Dyspnea is improving especially after thoracentesis, but still has varying 02 needs. Went from nasal cannula back to venti-mask this afternoon. As goals are considered aggressive until we hear otherwise, we'll minimize use of opiates or benzos in treating dyspnea. No further recommendations at this time. == Confusion: Per daughter, patient is normally quite cognitively sharp. He apparently can name the starting lineups of all the [employer] teams and can recite the teams playing and all the Super Bowl's. The confusion exhibited here in the hospital is probably a multifactorial delirium. Anticipate this will improve with treating his underlying illness. Agree with use of haloperidol if necessary to control an agitated delirium that risks his safety. Given his age , we may want to see if a lower dose such as 1 mg May be equally effective. Daughter feels strongly that the patient's confusion is the result of medications we are giving the patient. She wants sedating medications minimized. I have tried to explain the importance of keeping the patient safe and that he is likely to pull out his chest tube or IVs if we don't medicate him while confused. == Macrocytosis: Patient has a long history of alcohol abuse. Though his hemoglobin is relatively normal, may want to check B-12 or folate level. Deficiencies may impede his recovery. == Please include son-- Anselmo Duncan ([phone]) -- as well as daughter in all major decision making == Palliative care will continue to follow to assist with symptom management and to further clarify goals of medical treatment as the clinical course evolves. . Time Spent Total Floor Time (mins): 40 Face to Face Time (mins): 10 >50% Counseling/Coord of Care: Yes Attestation To help prompt me to consider important information that might be impacting today's encounter and assessment, information from prior notes written by myself or my colleagues may have been "brought forward" into today's note. My signature on this note, however, is an attestation that I personally performed the exam, history, and/or decision-making noted today, and, unless otherwise indicated, the interactions with patient, family, and staff as well as the review of records all occurred today. I also attest that the listed assessment and stated plan reflect my best clinical judgment today based on the combination of historical information, prior notes, and today's exam/ interactions. When time spent is documented, it refers only to time spent today by the signer, or if indicated, combined time spent today by collaborating physician/nurse practitioner. . Vignesh Garcia MD Oct 11, 2016 17:16
--- NOTE | 2016-10-11 19:15 | HHI.PR ---
Subjective Remarks Seems better now but was hypoxic earlier today. On a Ventimask. Chest tube drained >200 CC today. No fever. CXR chest shows CHF changes.and no Pneumothorax Objective Vital Signs Date Time Temp Pulse Resp B/P Pulse Ox O2 Delivery O2 Flow Rate FiO2 10/11/16 12:01 97.8 68 23 114/59 96 10/11/16 12:00 96 Nasal Cannula 3.00 Humidified 10/11/16 12:00 62 10/11/16 11:01 74 35 131/61 93 10/11/16 10:15 88 10/11/16 10:01 76 32 134/69 94 10/11/16 10:01 76 24 134/69 94 10/11/16 09:01 84 24 150/68 92 10/11/16 08:01 82 28 136/65 94 10/11/16 08:00 79 10/11/16 08:00 93 Nasal Cannula 3.00 10/11/16 07:45 94 Nasal Cannula 3.00 10/11/16 07:30 98.7 78 28 91 10/11/16 06:07 75 10/11/16 06:01 76 25 102/48 96 10/11/16 05:49 99 Nasal Cannula 2.00 10/11/16 05:01 74 23 99/45 95 10/11/16 04:01 98.9 78 25 102/44 95 10/11/16 04:00 95 Nasal Cannula 3.00 10/11/16 04:00 72 10/11/16 03:01 76 23 116/48 95 10/11/16 02:01 78 28 110/50 96 10/11/16 02:00 73 10/11/16 01:01 78 30 129/54 94 10/11/16 00:01 98.3 72 28 106/51 95 10/11/16 00:00 72 10/11/16 00:00 95 Nasal Cannula 3.00 10/10/16 23:01 72 22 122/59 94 10/10/16 22:16 77 10/10/16 22:01 78 22 121/57 93 10/10/16 21:01 84 23 121/68 92 10/10/16 20:01 97.8 86 26 116/54 97 10/10/16 20:00 96 Nasal Cannula 3.00 10/10/16 20:00 68 10/10/16 19:20 98 Nasal Cannula 4.00 I/O 10/10/16 10/10/16 10/10/16 10/11/16 10/11/16 10/11/16 07:00 15:00 23:00 07:00 15:00 23:00 Intake Total 320 ml 1580 ml 620 ml 120 ml Output Total 520 ml 1990 ml 1380 ml 700 ml 450 ml Balance -200 ml -410 ml -760 ml -580 ml -450 ml Intake Oral 320 ml 1580 ml 620 ml 120 ml IV Total 0 ml Output Urine Total 350 ml 1800 ml 900 ml 500 ml 450 ml Chest Tube Drainage Total 170 ml 190 ml 480 ml 200 ml # Bowel Movements 0 1 1 0 Result Diagram: 10/10/16 0453 10/11/16 1602 Objective Remarks This elderly thinly built white male is pale and mildly dyspneic at rest. There is mild clubbing or cyanosis or icterus or lymphadenopathy. HEENT: Head normocephalic. Pupils are reactive and equal. Tongue is dry. Throat is clear. Nasal mucosa is clear. NECK: Supple with mild venous distension at 45 degrees. Trachea midline. No thyroid enlargement. CHEST: Equal movements with decreased excursions. Breath sounds diminished at the bases with wheezes bilaterally. Crackles heard at lung bases HEART: The heart sounds are irregular S1-S2. No murmur. No S3. ABDOMEN: Soft, protuberant. No masses or organomegaly or tenderness. Bowel sounds active. EXTREMITIES: Mild varicosities and decreased peripheral pulses and reflexes are 1+ with no gross motor deficits.Edema 1 + NEUROLOGIC: No focal deficit RECTAL: Exam is deferred. SKIN: No lesions. Assessment and Plan Assessment and Plan IMPRESSION 1. Large right pleural effusion with right basilar atelectasis. 2. CHF with ASHD 3. Atrial fibrillation 4. Hypertension 5. COPD and possible basilar pneumonia. Plan : 1. Chest tube to Drainage. 2. BMP in am 3. Nebs qid , Duoneb. 4. Haldol 1 mg tid prn. 5. Will wean O2 to N/C 3 L. 6. S/Q Heparin BID. 7. Will clamp chest tube if drainage is less than 100 CC/day 8. Continue Lasix 40 mg IV Q8H. Paulo Rooney MD Oct 11, 2016 19:15
[2016-10-12] VITALS (39 sets, daily range): BP systolic 100–144; BP diastolic 45–66; PULSE 58–87; RESP 15–46; TEMP 97.6–98.6; O2SAT 91–99
[2016-10-12] MEDS: CHLORHEXIDINE GLUCONATE 2 % 1 PACK (2 CLOTHS) TOP SCH (04:00)
[2016-10-12 06:04] LABS: AUTOMATED NEUTROPHIL # 3.7 TH/MM3 (1.8-7.7); BASOPHIL % 0.5 % (0.0-2.0); EOSINOPHIL # 0.3 TH/MM3 (0-0.4); EOSINOPHIL % 4.5 % (0.0-4.0); HEMATOCRIT 36.7 % (39.0-51.0); HEMO FLAGS DIFF FINAL; LYMPH % 17.6 % (9.0-44.0); MEAN CELL VOLUME 99.7 FL (80.0-100.0); MEAN CORPUSCULAR HEMOGLOBIN 31.9 PG (27.0-34.0); NEUT % 63.4 % (16.0-70.0); PLATELET COUNT 107 TH/MM3 (150-450); RED BLOOD COUNT 3.68 MIL/MM3 (4.50-5.90); RED CELL DISTRIBUTION WIDTH 14.1 % (11.6-17.2); WHITE BLOOD COUNT 5.8 TH/MM3 (4.0-11.0)
[2016-10-12 06:12] LABS: CHLORIDE 95 MEQ/L (98-107); POTASSIUM 3.7 MEQ/L (3.5-5.1); SODIUM (NA) 143 MEQ/L (136-145)
[2016-10-12 06:15] LABS: BLOOD UREA NITROGEN 23 MG/DL (7-18); INTERNATIONAL NORMALIZED RATIO 1.5 RATIO; PROTHROMBIN TIME - PATIENT 16.4 SEC (9.8-11.6)
[2016-10-12 06:18] LABS: GLOMERULAR FILTRATION RATE 91 ML/MIN (>89)
[2016-10-12 06:28] LABS: ANION GAP 3 MEQ/L (5-15); BICARBONATE GREATER THAN 45.0 MEQ/L (21.0-32.0)
[2016-10-12] MEDS: POTASSIUM CHLORIDE 20 MEQ CONTROLLED RELEASE TAB PO SCH ×3 (06:41→22:22)
[2016-10-12] MEDS: FUROSEMIDE 40 MG/4 ML VIAL IV PUSH SCH ×3 (06:41→22:23)
[2016-10-12] MEDS: RESP: ALBUTEROL 2.5 MG/IPRATROPIUM 0.5 MG NEB (SCH) NEB ×4 (07:26→19:19)
[2016-10-12] MEDS: SODIUM CHLORIDE 0.9% FLUSH 5 ML FLUSH IV FLUSH SCH ×2 (09:18→22:23)
[2016-10-12] MEDS: DOCUSATE SODIUM 100 MG CAP PO SCH ×2 (09:19→21:00)
[2016-10-12] MEDS: FAMOTIDINE 20 MG/2 ML VIAL IV PUSH SCH ×2 (09:19→21:00)
[2016-10-12] MEDS: ATENOLOL 50 MG TAB PO SCH ×2 (09:19→22:22)
--- NOTE | 2016-10-12 10:45 | HHI.PR ---
Subjective Remarks Patient seen and examined today with Dr. Sparks. Patient appears to be more alert today. Patient still with significant chest tube output of 450 cc since 4 :30 yesterday afternoon. He is on 3.5 liters nasal cannula Objective Vitals Vital Signs Date Time Temp Pulse Resp B/P Pulse Ox O2 Delivery O2 Flow Rate FiO2 10/12/16 09:01 72 29 124/48 97 10/12/16 08:01 70 27 126/57 94 10/12/16 07:29 99 Nasal Cannula 5.00 10/12/16 07:01 97.6 74 46 135/61 91 10/12/16 06:01 66 20 109/45 99 10/12/16 06:00 68 10/12/16 05:01 66 21 112/52 99 10/12/16 04:01 98.2 68 20 100/51 98 10/12/16 04:00 64 10/12/16 04:00 99 Nasal Cannula 4.00 10/12/16 03:01 70 27 109/52 95 10/12/16 02:01 70 28 114/50 98 10/12/16 02:00 66 10/12/16 01:01 66 27 110/53 98 10/12/16 00:01 98.6 68 30 120/48 96 10/12/16 00:00 99 Nasal Cannula 4.00 10/12/16 00:00 70 10/11/16 23:01 66 30 105/41 94 10/11/16 22:01 82 30 136/61 95 10/11/16 22:00 84 10/11/16 21:01 84 33 119/63 94 10/11/16 20:01 98.1 74 30 131/54 97 10/11/16 20:00 71 10/11/16 20:00 98 Nasal Cannula 4.00 10/11/16 19:44 98 Nasal Cannula 4.00 10/11/16 19:01 72 28 131/57 98 10/11/16 19:00 98 Nasal Cannula 6.00 10/11/16 18:01 88 37 155/68 93 10/11/16 18:00 92 10/11/16 17:01 84 41 161/79 94 10/11/16 16:38 Venturi Mask 10/11/16 16:06 80 31 148/67 99 10/11/16 16:01 97.9 86 33 172/80 85 10/11/16 16:00 83 10/11/16 15:01 80 32 168/79 99 10/11/16 14:40 Non-Rebreather 10/11/16 14:05 76 35 170/73 90 10/11/16 14:02 72 34 165/74 92 10/11/16 14:00 63 10/11/16 13:01 72 25 122/56 95 10/11/16 12:01 97.6 68 23 114/59 96 10/11/16 12:00 96 Nasal Cannula 3.00 Humidified 10/11/16 12:00 62 10/11/16 11:01 74 35 131/61 93 I/O 10/11/16 10/11/16 10/11/16 10/12/16 10/12/16 10/12/16 07:00 15:00 23:00 07:00 15:00 23:00 Intake Total 120 ml 540 ml 240 ml Output Total 700 ml 2750 ml 2320 ml 585 ml Balance -580 ml -2210 ml -2080 ml -585 ml Intake Oral 120 ml 540 ml 240 ml IV Total 0 ml Output Urine Total 500 ml 2750 ml 2000 ml 525 ml Chest Tube Drainage Total 200 ml 320 ml 60 ml # Bowel Movements 0 1 0 0 Result Diagram: 10/12/1633 10/12/16532 Objective Remarks GENERAL: Well-developed, well-nourished, in no acute distress. alert and orientated HEENT: Head is normocephalic without any lesions or masses noted. Facial features are symmetric. Eyes: Extraocular muscles are intact. Conjunctivae were clear. NECK: Supple without any masses. Trachea midline no deviation. No JVD, CARDIAC: Regular rhythm, regular rate. S1/S2 are heard. No murmurs gallops or rubs. LUNGS: Diminished lung sounds noted in the right base. Clear to auscultation bilaterally. No wheeze, rhonchi or rales. No use of accessory muscles on inspiration or expiration. Chest tube in place with significant output, at least 450cc since 4:30 yesterday afternoon ABDOMEN: Soft, nontender. Nondistended. Bowel sounds heard in all 4 quadrants. No organomegaly or masses. Negative rebound, negative guarding EXTREMITIES: No edema, pulses are equal bilaterally. No cyanosis or clubbing NEUROLOGY: Mood and affect appear appropriate. Cranial nerves II through XII grossly intact. Moving all extremities, speech is clear Urinary Catheter: No Vascular Central Line Catheter: No A/P Assessment and Plan Acute hypoxic/hypercapnic respiratory failure, due to right pleural effusion, acute diastolic congestive heart failure, chronic cor pulmonale/pulmonary hypertension, improving Likely secondary to chronic obstructive pulmonary disease, congestive heart failure, pleural effusion Patient is tolerating nasal cannula 3.5 L. Continue to titrate to keep O2 sats greater than 92% Continue diuresis, Lasix 40 mg every 8 hours with potassium supplementation Continue captopril, atenolol, Lasix Echocardiogram indicates ejection fraction 5560 percent. Systolic function was normal. Moderate aortic valve regurgitation. Mild to moderate mitral valve regurgitation. Severely dilated left and right atrium. Tricuspid valve severe regurgitation. Small pericardial effusion. PA peak pressure 85 mmhg Yard Supervisor consulted for recommendations Respiratory status decompensated 10/11/16. Patient required increasing O2 supplementation to face mask, patient given extra Lasix. Blood gas performed which did indicate pH 7.32, PCO2 87, PO2 241, bicarbonate 43, O2 sat 97. Recurrent, Large right pleural effusion status post thoracentesis on October 06 with 3200 ml of clear yellow transudative fluid removed. Right pneumothorax Post thoracentesis- now resolved with chest tube. Chest tube remains in place with significant pleural fluid output. Pulmonology following for chest tube management. There has been no sign of decrease and pleural fluid output. Patient will likely need CT surgery to evaluate for possible decortication. Acute metabolic encephalopathy with agitation - improving. Patient's daughter feels that the sedation is causing it however the patient became anxious and confused and was trying to get out of bed. Soft restraints, low-dose Xanax and low-dose haldol IM as needed to prevent disruption of care Nursing staff notified ON to use Xanax or Haldol if verbal attempts to calm patient down do not succeed Chronic obstructive pulmonary disease with chronic CO2 retention. Continue O2 supplementation maintain O2 sats greater 92% Continue yuliana urbina Yard Supervisor following the patient Chronic atrial fibrillation Beta eileen continued Coumadin continued, pharmacy consulted for Coumadin management INR 1.5 Mildly liver enzyme elevation. Improving Continue monitor DVT prophylaxis Discontinue Subcutaneous heparin Patient on Coumadin INR 2.4 Discharge disposition: Palliative care is following the patient. CODE STATUS full code. Written by Poli Brody PA-C, acting as scribe for Dr. Sparks on 10/12/16 at 1530. The documentation accurately reflects the work and decisions performed face-to- face by Dr. Sparks on 10/12/16 at 1530. Poli Brody Oct 12, 2016 10:45 Genoveva Sparks MD Oct 12, 2016 15:48
--- NOTE | 2016-10-12 12:17 | RADHPO ---
EXAM DATE/TIME: 10/12/2016 11:55 [facility] COMPARISON: CHEST SINGLE AP, October 11, 2016, 15:48. INDICATIONS : CHF, short of breath MEDICAL HISTORY : Chronic obstructive pulmonary disease. Congestive heart failure. SURGICAL HISTORY : None. ENCOUNTER: Subsequent ACUITY: 4 - 6 days PAIN SCORE: Non-responsive. LOCATION: Bilateral chest FINDINGS: Bibasilar consolidation and small effusions again noted, not significantly changed. Right chest tube remains in place. I don't see a pneumothorax. Moderate cardiomegaly similar. CONCLUSION: Persistent cardiomegaly and failure with effusions, not significantly changed. Right chest tube remai ns in place. No pneumothorax seen. Dhruv Foster MD on October 12, 2016 at 12:15 Board Certified Radiologist. This report was verified electronically.
--- NOTE | 2016-10-12 15:53 | HHI.PR ---
Subjective Remarks Patient seen and discussed with ICU nurse Jenna as well as the patient's son Anselmo at bedside. Per nurse Jenna the patient has had only 50 cc output from his chest tubes and 7 AM this morning and over the 12 hour energy sales consultant only 60 cc. This is different than what was reported in the EMR. The patient is on 4 L nasal cannula. However he remains weak and mildly confused. Objective Vitals Vital Signs Date Time Temp Pulse Resp B/P Pulse Ox O2 Delivery O2 Flow Rate FiO2 10/12/16 15:01 76 27 140/62 96 10/12/16 15:00 76 10/12/16 14:01 72 34 124/49 95 10/12/16 14:00 68 10/12/16 13:01 70 32 125/56 95 10/12/16 12:01 98.6 58 22 109/49 97 10/12/16 12:00 97 Nasal Cannula 4.00 10/12/16 12:00 60 10/12/16 11:01 64 33 133/55 98 10/12/16 10:01 72 27 112/48 97 10/12/16 10:00 70 10/12/16 09:01 72 29 124/48 97 10/12/16 08:01 70 27 126/57 94 10/12/16 08:00 70 10/12/16 08:00 94 Nasal Cannula 4.00 10/12/16 07:29 99 Nasal Cannula 5.00 10/12/16 07:01 97.6 74 46 135/61 91 10/12/16 06:01 66 20 109/45 99 10/12/16 06:00 68 10/12/16 05:01 66 21 112/52 99 10/12/16 04:01 98.2 68 20 100/51 98 10/12/16 04:00 64 10/12/16 04:00 99 Nasal Cannula 4.00 10/12/16 03:01 70 27 109/52 95 10/12/16 02:01 70 28 114/50 98 10/12/16 02:00 66 10/12/16 01:01 66 27 110/53 98 10/12/16 00:01 98.6 68 30 120/48 96 10/12/16 00:00 99 Nasal Cannula 4.00 10/12/16 00:00 70 10/11/16 23:01 66 30 105/41 94 10/11/16 22:01 82 30 136/61 95 10/11/16 22:00 84 10/11/16 21:01 84 33 119/63 94 10/11/16 20:01 98.1 74 30 131/54 97 10/11/16 20:00 71 10/11/16 20:00 98 Nasal Cannula 4.00 10/11/16 19:44 98 Nasal Cannula 4.00 10/11/16 19:01 72 28 131/57 98 10/11/16 19:00 98 Nasal Cannula 6.00 10/11/16 18:01 88 37 155/68 93 10/11/16 18:00 92 10/11/16 17:01 84 41 161/79 94 10/11/16 16:38 Venturi Mask 10/11/16 16:06 80 31 148/67 99 10/11/16 16:01 97.9 86 33 172/80 85 10/11/16 16:00 83 I/O 10/11/16 10/11/16 10/11/16 10/12/16 10/12/16 10/12/16 07:00 15:00 23:00 07:00 15:00 23:00 Intake Total 120 ml 540 ml 240 ml 480 ml Output Total 700 ml 2750 ml 2320 ml 585 ml 850 ml Balance -580 ml -2210 ml -2080 ml -585 ml -370 ml Intake Oral 120 ml 540 ml 240 ml 480 ml IV Total 0 ml 0 ml Output Urine Total 500 ml 2750 ml 2000 ml 525 ml 800 ml Chest Tube Drainage Total 200 ml 320 ml 60 ml 50 ml # Bowel Movements 0 1 0 0 0 Result Diagram: 10/12/1633 10/12/16532 Objective Remarks GENERAL: Elderly chronically ill-appearing male HEENT: Head is normocephalic without any lesions or masses noted. Facial features are symmetric. Eyes: Extraocular muscles are intact. Conjunctivae were clear. NECK: Supple without any masses. Trachea midline no deviation. No JVD, CARDIAC: Regular rhythm, regular rate. S1/S2 are heard. No murmurs gallops or rubs. LUNGS: Diminished in the bases bilaterally. Mildly labored breathing on 4 L nasal cannula. Chest tube in place at right chest. ABDOMEN: Soft, nontender. Nondistended. Bowel sounds heard in all 4 quadrants. No organomegaly or masses. Negative rebound, negative guarding EXTREMITIES: Chronic venous stasis changes of the bilateral lower extremities with trace pedal edema. NEUROLOGY: Somewhat lethargic but awake and alert. He states it is OctoberSeptember 26. He states it is 2070. Initially states that the president is Singh but then later changes it to Trump. A/P Assessment and Plan Acute hypoxic/hypercapnic respiratory failure, due to right pleural effusion, acute diastolic congestive heart failure, chronic cor pulmonale/pulmonary hypertension, Continue diuresis Continue captopril, atenolol, Lasix Echocardiogram indicates ejection fraction 5560 percent. Systolic function was normal. Moderate aortic valve regurgitation. Mild to moderate mitral valve regurgitation. Severely dilated left and right atrium. Tricuspid valve severe regurgitation. Small pericardial effusion. PA peak pressure 85 mmhg. Production Grip consulted for recommendations Recurrent, Large right pleural effusion status post thoracentesis on October 06 with 3200 ml of clear yellow transudative fluid removed. Right pneumothorax Post thoracentesis-he has chest tube with persistent pneumothorax however the chest tube is draining significant amounts of pleural fluid and is not likely adequate to reinflate the lung. Pulmonology following for chest tube management. There has been no sign of decrease and pleural fluid output. The pneumothorax is anterior and not clearly seen on the AP chest x-rays however was seen on chest CT. It is not reinflating with the chest tube currently in place which is only draining pleural fluid. Patient cannot have pleurodesis with a pneumothorax per pulmonology. Patient will likely need CT surgery to evaluate for possible decortication. I discussed the patient with Dr. Castillo today as well as with the patient's son Anselmo. The patient's son and daughter feels that the patient would want continued aggressive care and they do requests everything be done for the patient. We'll plan on transferring to the main hospital today for cardiothoracic surgery evaluation. Acute metabolic encephalopathy with agitation Patient's daughter feels that the sedation is causing it however the patient became anxious and confused and was trying to get out of bed, pulling out chest tube. Soft restraints, low-dose Xanax and low-dose haldol IM as needed to prevent disruption of care, to use only a verbal attempts to calm the patient are unsuccessful. Chronic obstructive pulmonary disease with chronic CO2 retention. Continue O2 supplementation maintain O2 sats greater 92% Continue duo nebs Production Grip following the patient Chronic atrial fibrillation Beta eileen continued Coumadin continued, pharmacy consulted for Coumadin management Mildly liver enzyme elevation. Improving Continue monitor DVT prophylaxis SCDs Patient on Coumadin INR CODE STATUS full code. Confirmed with patient's son Anselmo at bedside and he discussed as well with his sister. Patient desires both his son and daughter to make joint decisions for him if he is incapacitated. Please see note and previous discussion from October 10. Guarded prognosis. Palliative care is following the patient. Genoveva Sparks MD Oct 12, 2016 15:53
[2016-10-12] MEDS ORDERED: WARFARIN SOD 5 MG TAB PO SCH (16:00)
[2016-10-12] MEDS ORDERED: WARFARIN SOD 7.5 MG TAB PO ONE (16:00)
--- NOTE | 2016-10-12 18:30 | HHI.PR ---
Subjective Remarks still SOB but less chest tube draining Objective Vital Signs Date Time Temp Pulse Resp B/P Pulse Ox O2 Delivery O2 Flow Rate FiO2 10/12/16 18:01 78 34 117/58 94 10/12/16 17:01 80 32 143/61 94 10/12/16 16:01 98.2 76 32 122/56 96 10/12/16 15:01 76 27 140/62 96 10/12/16 15:00 76 10/12/16 14:01 72 34 124/49 95 10/12/16 14:00 68 10/12/16 13:01 70 32 125/56 95 10/12/16 12:01 98.6 58 22 109/49 97 10/12/16 12:00 97 Nasal Cannula 4.00 10/12/16 12:00 60 10/12/16 11:01 64 33 133/55 98 10/12/16 10:01 72 27 112/48 97 10/12/16 10:00 70 10/12/16 09:01 72 29 124/48 97 10/12/16 08:01 70 27 126/57 94 10/12/16 08:00 70 10/12/16 08:00 94 Nasal Cannula 4.00 10/12/16 07:29 99 Nasal Cannula 5.00 10/12/16 07:01 97.6 74 46 135/61 91 10/12/16 06:01 66 20 109/45 99 10/12/16 06:00 68 10/12/16 05:01 66 21 112/52 99 10/12/16 04:01 98.2 68 20 100/51 98 10/12/16 04:00 64 10/12/16 04:00 99 Nasal Cannula 4.00 10/12/16 03:01 70 27 109/52 95 10/12/16 02:01 70 28 114/50 98 10/12/16 02:00 66 10/12/16 01:01 66 27 110/53 98 10/12/16 00:01 98.6 68 30 120/48 96 10/12/16 00:00 99 Nasal Cannula 4.00 10/12/16 00:00 70 10/11/16 23:01 66 30 105/41 94 10/11/16 22:01 82 30 136/61 95 10/11/16 22:00 84 10/11/16 21:01 84 33 119/63 94 10/11/16 20:01 98.1 74 30 131/54 97 10/11/16 20:00 71 10/11/16 20:00 98 Nasal Cannula 4.00 10/11/16 19:44 98 Nasal Cannula 4.00 10/11/16 19:01 72 28 131/57 98 10/11/16 19:00 98 Nasal Cannula 6.00 I/O 10/11/16 10/11/16 10/11/16 10/12/16 10/12/16 10/12/16 07:00 15:00 23:00 07:00 15:00 23:00 Intake Total 120 ml 540 ml 240 ml 480 ml Output Total 700 ml 2750 ml 2320 ml 585 ml 850 ml Balance -580 ml -2210 ml -2080 ml -585 ml -370 ml Intake Oral 120 ml 540 ml 240 ml 480 ml IV Total 0 ml 0 ml Output Urine Total 500 ml 2750 ml 2000 ml 525 ml 800 ml Chest Tube Drainage Total 200 ml 320 ml 60 ml 50 ml # Bowel Movements 0 1 0 0 0 Result Diagram: 10/12/1633 10/12/16532 Objective Remarks GENERAL: SKIN: Warm and dry. HEAD: Atraumatic. Normocephalic. EYES: Pupils equal and round. No scleral icterus. No injection or drainage. ENT: No nasal bleeding or discharge. Mucous membranes pink and moist. NECK: Trachea midline. No JVD. CARDIOVASCULAR: Regular rate and rhythm. RESPIRATORY: No accessory muscle use. Clear to auscultation. Breath sounds equal bilaterally. GASTROINTESTINAL: Abdomen soft, non-tender, nondistended. Hepatic and splenic margins not palpable. MUSCULOSKELETAL: Extremities without clubbing, cyanosis, or edema. No obvious deformities. NEUROLOGICAL: Awake and alert. No obvious cranial nerve deficits. Motor grossly within normal limits. Five out of 5 muscle strength in the arms and legs. Normal speech. PSYCHIATRIC: Appropriate mood and affect; insight and judgment normal. Assessment and Plan Assessment and Plan respiratory failue CHF Pleural effusion AFIB PLAN therapy for CHF O2 as needed Consider Pleurodesis Juan Antonio Romano MD Oct 12, 2016 18:30
[2016-10-13] VITALS (14 sets, daily range): BP systolic 102–128; BP diastolic 54–74; PULSE 67–80; RESP 18–24; TEMP 97.9–99.3; O2SAT 93–99
[2016-10-13] MEDS: CHLORHEXIDINE GLUCONATE 2 % 1 PACK (2 CLOTHS) TOP SCH (04:00)
[2016-10-13 04:20] LABS: INTERNATIONAL NORMALIZED RATIO 1.7 RATIO; PROTHROMBIN TIME - PATIENT 19.2 SEC (9.8-11.6)
--- NOTE | 2016-10-13 04:20 | RADRPT ---
EXAM DATE/TIME: 10/13/2016 03:38 [facility] COMPARISON: CHEST SINGLE AP, October 12, 2016, 11:55. INDICATIONS : Shortness of breath, possible pulmonary disease. MEDICAL HISTORY : Chronic obstructive pulmonary disease. Congestive heart failure. SURGICAL HISTORY : None. ENCOUNTER: Subsequent ACUITY: 4 - 6 days PAIN SCORE: Non-responsive. LOCATION: Bilateral chest FINDINGS: The cardiac silhouette is enlarged in transverse diameter. A right chest tube is in place. There is n o evidence of pneumothorax. There is bilateral lower lobe atelectasis versus pneumonia. Moderate size bilateral pleural effusions are identified. CONCLUSION: 1. Cardiomegaly and findings of congestive heart failure. There has been no significant change when c ompared to the prior exam. 2. There is no evidence of pneumothorax. Jimi Chavez MD on October 13, 2016 at 4:18 Board Certified Radiologist. This report was verified electronically.
[2016-10-13 05:34] LABS: BLOOD GAS BASE EXCESS 17.5 mmol/L (-2-2); BLOOD GAS CARBOXYHEMOGLOBIN 1.8 % (0-4); BLOOD GAS HCO3 44 mmol/L (22-26); BLOOD GAS O2 HGB SATURATION 97 % (90-100); BLOOD GAS OXYGEN CONTENT 17.9 Vol % (12.0-20.0); BLOOD GAS PCO2 82 mmHg (38-42); BLOOD GAS PO2 165 mmHg (61-120); TEMP CORR TO 98.6
[2016-10-13 05:35] LABS: CRITICAL VALUE YES; DRAW SITE LT BRACHIAL; FIO2 100 %; NUMBER OF ARTERIAL PUNCTURES 1; OXYGEN DEVICE BIPAP; STAT NO; VENT SETTINGS 18IPAP/8EPAP
[2016-10-13] MEDS: FUROSEMIDE 40 MG/4 ML VIAL IV PUSH SCH ×3 (06:09→22:41)
[2016-10-13] MEDS: POTASSIUM CHLORIDE 20 MEQ CONTROLLED RELEASE TAB PO SCH ×3 (06:10→22:00)
[2016-10-13] MEDS: RESP: ALBUTEROL 2.5 MG/IPRATROPIUM 0.5 MG NEB (SCH) NEB ×4 (07:46→20:21)
[2016-10-13] MEDS: FAMOTIDINE 20 MG/2 ML VIAL IV PUSH SCH ×2 (09:00→20:04)
--- NOTE | 2016-10-13 09:29 | HHI.PR ---
Subjective Remarks Patient in bed on BiPAP, doesn't appear in acute distress. Chest tube in place, pain controlled by meds. No n/v/d/c. Family (son) at bedside. No fevers or chills overnight. Objective Vitals Vital Signs Date Time Temp Pulse Resp B/P Pulse Ox O2 Delivery O2 Flow Rate FiO2 10/13/16 07:33 97 45 10/13/16 06:10 99 55 10/13/16 05:57 97 Bi-Pap 65 10/13/16 05:50 95 Bi-Pap 65 10/13/16 05:50 95 65 10/13/16 04:45 95 Bi-Pap 100 10/13/16 04:40 91 Bi-Pap 100 10/13/16 04:35 95 100 10/13/16 04:10 90 Non-Rebreather 15.00 10/13/16 04:00 94 Venturi Mask 50 10/13/16 03:30 96 Nasal Cannula 3.00 10/13/16 03:24 97.9 67 24 112/63 95 10/13/16 03:24 80 10/13/16 00:00 96 Nasal Cannula 3.00 10/12/16 23:20 98.0 86 18 110/52 93 10/12/16 23:20 79 10/12/16 22:07 94 Nasal Cannula 3.00 10/12/16 21:00 97.7 87 15 138/64 94 10/12/16 20:46 93 Nasal Cannula 3.00 10/12/16 20:01 98.5 84 29 134/65 95 10/12/16 20:00 82 10/12/16 20:00 97 Nasal Cannula 4.00 10/12/16 19:20 95 Nasal Cannula 3.00 10/12/16 19:01 84 32 144/66 94 10/12/16 18:01 78 34 117/58 94 10/12/16 18:00 78 10/12/16 17:01 80 32 143/61 94 10/12/16 17:00 78 10/12/16 16:01 98.2 76 32 122/56 96 10/12/16 16:00 72 10/12/16 16:00 96 Nasal Cannula 4.00 10/12/16 15:01 76 27 140/62 96 10/12/16 15:00 76 10/12/16 14:01 72 34 124/49 95 10/12/16 14:00 68 10/12/16 13:01 70 32 125/56 95 10/12/16 12:01 98.6 58 22 109/49 97 10/12/16 12:00 97 Nasal Cannula 4.00 10/12/16 12:00 60 10/12/16 11:01 64 33 133/55 98 10/12/16 10:01 72 27 112/48 97 10/12/16 10:00 70 I/O 10/12/16 10/12/16 10/12/16 10/13/16 10/13/16 10/13/16 07:00 15:00 23:00 07:00 15:00 23:00 Intake Total 480 ml 50 ml Output Total 585 ml 850 ml 840 ml Balance -585 ml -370 ml -790 ml Intake Oral 480 ml 50 ml IV Total 0 ml 0 ml Output Urine Total 525 ml 800 ml 800 ml Chest Tube Drainage Total 60 ml 50 ml 40 ml # Bowel Movements 0 0 1 Result Diagram: 10/12/16 0533 10/12/16 0533 Imaging Last Impressions Chest X-Ray 10/13/16 0600 Signed Impressions: Service Date/Time: Thursday, October 13, 2016 03:38 - CONCLUSION: 1. Cardiomegaly and findings of congestive heart failure. There has been no significant change when compared to the prior exam. 2. There is no evidence of pneumothorax. Jimi Chavez MD Chest CT 10/09/16 1710 Signed Impressions: Service Date/Time: Sunday, October 09, 2016 21:35 - CONCLUSION: 1. Mild to moderate right pneumothorax with a right-sided chest tube in place. There is a mild right pleural effusion. 2. Moderate left pleural effusion. There is accompanying areas of atelectasis or consolidation seen throughout the left lower lobe. 3. Cardiomegaly. There is a mild pericardial effusion. The enlargement of the heart is secondary to enlargement of the chambers. 4. Suspected debris at the posterior proximal trachea. Dhruv Allen MD Head CT 10/06/16 0000 Signed Impressions: Service Date/Time: Thursday, October 06, 2016 16:27 - CONCLUSION: 1. No acute intracranial abnormalities. Stable small lacunar infarct on the right as above. Chaka Campos MD Cervical Spine CT 10/06/16 0000 Signed Impressions: Service Date/Time: Thursday, October 06, 2016 16:27 - CONCLUSION: 1. No acute findings in the cervical spine. Moderate degenerative disc disease but no significant canal stenosis. Large right pleural effusion noted at the right lung apex. Chaka Campos MD Objective Remarks GENERAL: Elderly chronically ill-appearing male HEENT: Head is normocephalic without any lesions or masses noted. Facial features are symmetric. Eyes: Extraocular muscles are intact. Conjunctivae were clear. NECK: Supple without any masses. Trachea midline no deviation. No JVD, CARDIAC: Regular rhythm, regular rate. S1/S2 are heard. No murmurs gallops or rubs. LUNGS: Diminished in the bases bilaterally. Mildly labored breathing on 4 L nasal cannula. Chest tube in place at right chest. ABDOMEN: Soft, nontender. Nondistended. Bowel sounds heard in all 4 quadrants. No organomegaly or masses. Negative rebound, negative guarding EXTREMITIES: Chronic venous stasis changes of the bilateral lower extremities with trace pedal edema. NEUROLOGY: More awake and alert x name only. Motor grossly normal. A/P Assessment and Plan Acute hypoxic/hypercapnic respiratory failure, due to right pleural effusion, acute diastolic congestive heart failure, chronic cor pulmonale/pulmonary hypertension, Continue diuresis Continue captopril, atenolol, Lasix Echocardiogram indicates ejection fraction 5560 percent. Systolic function was normal. Moderate aortic valve regurgitation. Mild to moderate mitral valve regurgitation. Severely dilated left and right atrium. Tricuspid valve severe regurgitation. Small pericardial effusion. PA peak pressure 85 mmhg. Inbound Telemarketer consulted Dr Manning following. Recurrent, Large right pleural effusion status post thoracentesis on October 06 with 3200 ml of clear yellow transudative fluid removed. Right pneumothorax Post thoracentesis-he has chest tube with persistent pneumothorax however the chest tube is draining significant amounts of pleural fluid and is not likely adequate to reinflate the lung. Pulmonology following for chest tube management. There has been no sign of decrease and pleural fluid output. The pneumothorax is anterior and not clearly seen on the [facility] chest x-rays however was seen on chest CT. It is not reinflating with the chest tube currently in place which is only draining pleural fluid. Patient cannot have pleurodesis with a pneumothorax per pulmonology. Patient will likely need CT surgery to evaluate for possible decortication. Dr. Jonathan wallis following. The patient's son and daughter feels that the patient would want continued aggressive care and they do requests everything be done for the patient. Transferred to the [facility] for cardiothoracic surgery evaluation. Acute metabolic encephalopathy with agitation Patient's daughter feels that the sedation is causing it however the patient became anxious and confused and was trying to get out of bed, pulling out chest tube. Soft restraints, low-dose Xanax and low-dose haldol IM as needed to prevent disruption of care, to use only a verbal attempts to calm the patient are unsuccessful. Chronic obstructive pulmonary disease with chronic CO2 retention. Continue O2 supplementation maintain O2 sats greater 92% Continue yuliana urbina Inbound Telemarketer following the patient Chronic atrial fibrillation Beta eileen continued Coumadin continued, pharmacy consulted for Coumadin management Mildly liver enzyme elevation. Improving Continue monitor DVT prophylaxis SCDs Patient on Coumadin INR CODE STATUS full code. Confirmed with patient's son Anselmo bedside and he discussed as well with his sister. Patient desires both his son and daughter to make joint decisions for him if he is incapacitated. Please see note and previous discussion from October [address] Sparks. Guarded prognosis. Palliative care is following the patient. Discussed with ICU nurse, patient, son at bedside. Rebeca Grey MD Oct 13, 2016 09:29
[2016-10-13] MEDS: SODIUM CHLORIDE 0.9% FLUSH 5 ML FLUSH IV FLUSH SCH ×2 (10:30→19:30)
[2016-10-13] MEDS: ATENOLOL 50 MG TAB PO SCH ×2 (10:30→19:29)
[2016-10-13] MEDS: DOCUSATE SODIUM 100 MG CAP PO SCH ×2 (10:30→19:30)
--- NOTE | 2016-10-13 11:10 | PD.CONS ---
History of Present Illness Service CT Surgery Consult Requested By Dr. Sparks Reason for Consult Loculated hydropneumothorax, respiratory insufficiency Primary Care Physician Jayce De Souza MD Diagnoses: (1) Dyspnea (2) Acute respiratory failure with hypoxia and hypercapnia (3) Pleural effusion, right (4) Chronic atrial fibrillation (5) Congestive heart failure (6) COPD (chronic obstructive pulmonary disease) History of Present Illness 81 y/o male with h/o significant COPD on home oxygen brought to [place] for hypoxia, weakness, and dyspnea. He presented with O2 sats in the 80s with a pCO2 in the 80s as well on blood gas. He has been on BIPAP with improvement. He also was noted to have bilateral pleural effusions and a right pneumothorax for which he underwent catheter placement by IR with re-expansion. He had a recent chest CT which shows a small residual right pneumothorax and loculated effusion. Review of Systems ROS Limitations: Clinical Condition, Altered Mental Status, Poor Historian Constitutional: COMPLAINS OF: Fatigue, DENIES: Diaphoretic episodes, Fever, Weight gain, Weight loss, Chills, Dizziness, Change in appetite, Night Sweats Endocrine: DENIES: Heat/cold intolerance, Polydipsia, Polyuria, Polyphagia Eyes: DENIES: Blurred vision, Diplopia, Eye inflammation, Eye pain, Vision loss , Photosensitivity, Double Vision Ears, nose, mouth, throat: DENIES: Tinnitus, Hearing loss, Vertigo, Nasal discharge, Oral lesions, Throat pain, Hoarseness, Ear Pain, Running Nose, Epistaxis, Sinus Pain, Toothache, Odynophagia Respiratory: COMPLAINS OF: Cough, Wheezing, Shortness of breath, DENIES: Apneas, Snoring, Hemoptysis, Sputum production Cardiovascular: DENIES: Chest pain, Palpitations, Syncope, Dyspnea on Exertion , PND, Lower Extremity Edema, Orthopnea, Claudication Gastrointestinal: DENIES: Abdominal pain, Black stools, Bloody stools, Constipation, Diarrhea, Nausea, Vomiting, Difficulty Swallowing, Anorexia Genitourinary: DENIES: Sexual dysfunction, Urinary frequency, Urinary incontinence, Urgency, Hematuria, Dysuria, Nocturia, Penile Discharge, Testicular Pain, Testicular Swelling Musculoskeletal: COMPLAINS OF: Muscle aches, DENIES: Joint pain, Stiffness, Joint Swelling, Back pain, Neck pain Integumentary: DENIES: Abnormal pigmentation, Nail changes, Pruritus, Rash Hematologic/lymphatic: DENIES: Bruising, Lymphadenopathy Immunologic/allergic: DENIES: Eczema, Urticaria Neurologic: DENIES: Abnormal gait, Headache, Localized weakness, Paresthesias, Seizures, Speech Problems, Tremor, Poor Balance Psychiatric: DENIES: Anxiety, Confusion, Mood changes, Depression, Hallucinations, Agitation, Suicidal Ideation, Homicidal Ideation, Delusions Past Family Social History Allergies: Coded Allergies: No Known Allergies (Verified , 04/12/16) Past Medical History Past Medical History Hypertension Hyperlipidemia Chronic atrial fibrillation Congestive heart failure, unknown whether systolic or diastolic Skin cancer Past Surgical History Left knee surgery 1960 when he was in the Reported Medications Reported Meds & Active Scripts Active Reported Ginkgo Biloba 120 Mg Tab Bruin 3 1000 mg (Bruin-3 Fatty Acids) 1 Cap Cap Milk Thistle 140 Mg Cap BID Warfarin 5 Mg Tab 5 Mg PO DAILY Klor-Con 10 (Potassium Chloride) 10 Meq Tab 10 Meq PO DAILY Atenolol 50 Mg Tab 50 Mg PO BID Captopril 50 Mg Tab 50 Mg PO TIDAC Take 1 hour before meals. Furosemide 20 Mg Tab 20 Mg PO DAILY Active Ordered Medications Current Medications Medications (Trade) Dose Ordered Sig/Sonia Route Start Time Stop Time Status Last Admin (NS Flush) 2 ml UNSCH PRN IV FLUSH 10/06/16 17:45 (NS Flush) 2 ml BID IV FLUSH 10/06/16 21:00 10/13/16 10:30 (Tylenol) 650 mg Q6H PRN PO 10/06/16 17:45 10/07/16 20:01 (Morphine Inj) 2 mg Q2H PRN IV 10/06/16 17:45 10/08/16 16:23 (Pepcid Inj) 20 mg Q12HR IV PUSH 10/06/16 21:00 10/12/16 09:19 (Zofran Inj) 4 mg Q6H PRN IV 10/06/16 17:45 (Reglan Inj) 10 mg Q6H PRN IV 10/06/16 17:45 (Colace) 100 mg BID PO 10/06/16 21:00 10/13/16 10:30 Miscellaneous Information 1 Q361D XX 10/06/16 17:45 10/06/16 17:45 (Chlorhexidine 2% Cloth) Taper DAILY@04 TOP 10/07/16 04:00 10/03/17 03:59 10/13/16 04:00 (Chlorhexidine 2% Cloth) 3 pack UNSCH PRN TOP 10/06/16 17:45 (Tenormin) 50 mg BID PO 10/06/16 21:00 10/13/16 10:30 Captopril 50 mg 50 mg TIDAC PO 10/07/16 08:00 Hold 10/10/16 09:18 (Coumadin Consult Pharmacy) 0 ml @ 0 mls/hr UNSCH OTHER 10/06/16 17:45 (Xanax) 0.25 mg Q6H PRN PO 10/07/16 16:30 10/11/16 21:44 (Haldol Inj) 2 mg Q6H PRN IM 10/08/16 17:30 10/10/16 18:46 (Lasix Inj) 40 mg Q8HR IV PUSH 10/12/16 06:00 10/13/16 06:09 (KCl) 20 meq Q8HR PO 10/11/16 22:00 10/13/16 06:10 (Coumadin) 5 mg DAILY@16 PO 10/13/16 16:00 Family History unremarkable Social History Longstanding tobacco abuse Denies ETOH Physical Exam Vital Signs Vital Signs Date Time Temp Pulse Resp B/P Pulse Ox O2 Delivery O2 Flow Rate FiO2 10/13/16 08:00 95 Bi-Pap 65 10/13/16 07:33 97 45 10/13/16 07:00 97.9 76 18 102/54 95 10/13/16 07:00 77 10/13/16 06:10 99 55 10/13/16 05:57 97 Bi-Pap 65 10/13/16 05:50 95 Bi-Pap 65 10/13/16 05:50 95 65 10/13/16 04:45 95 Bi-Pap 100 10/13/16 04:40 91 Bi-Pap 100 10/13/16 04:35 95 100 10/13/16 04:10 90 Non-Rebreather 15.00 10/13/16 04:00 94 Venturi Mask 50 10/13/16 03:30 96 Nasal Cannula 3.00 10/13/16 03:24 97.9 67 24 112/63 95 10/13/16 03:24 80 10/13/16 00:00 96 Nasal Cannula 3.00 10/12/16 23:20 98.0 86 18 110/52 93 10/12/16 23:20 79 10/12/16 22:07 94 Nasal Cannula 3.00 10/12/16 21:00 97.7 87 15 138/64 94 10/12/16 20:46 93 Nasal Cannula 3.00 10/12/16 20:01 98.5 84 29 134/65 95 10/12/16 20:00 82 10/12/16 20:00 97 Nasal Cannula 4.00 10/12/16 19:20 95 Nasal Cannula 3.00 10/12/16 19:01 84 32 144/66 94 10/12/16 18:01 78 34 117/58 94 10/12/16 18:00 78 10/12/16 17:01 80 32 143/61 94 10/12/16 17:00 78 10/12/16 16:01 98.2 76 32 122/56 96 10/12/16 16:00 72 10/12/16 16:00 96 Nasal Cannula 4.00 10/12/16 15:01 76 27 140/62 96 10/12/16 15:00 76 10/12/16 14:01 72 34 124/49 95 10/12/16 14:00 68 10/12/16 13:01 70 32 125/56 95 10/12/16 12:01 98.6 58 22 109/49 97 10/12/16 12:00 97 Nasal Cannula 4.00 10/12/16 12:00 60 10/12/16 11:01 64 33 133/55 98 Physical Exam GENERAL: This is a well-nourished, well-developed patient, in no apparent distress. SKIN: No rashes, ecchymoses or lesions. Cool and dry. HEAD: Atraumatic. Normocephalic. No temporal or scalp tenderness. EYES: Pupils equal round and reactive. Extraocular motions intact. No scleral icterus. No injection or drainage. ENT: Nose without bleeding, purulent drainage or septal hematoma. Throat without erythema, tonsillar hypertrophy or exudate. Uvula midline. Airway patent. NECK: Trachea midline. No JVD or lymphadenopathy. Supple, nontender, no meningeal signs. CARDIOVASCULAR: Regular rate and rhythm without murmurs, gallops, or rubs. RESPIRATORY: Clear to auscultation. Breath sounds equal bilaterally. No wheezes , rales, or rhonchi. GASTROINTESTINAL: Abdomen soft, non-tender, nondistended. No hepato-splenomegaly , or palpable masses. No guarding. MUSCULOSKELETAL: Extremities without clubbing, cyanosis, or edema. No joint tenderness, effusion, or edema noted. No calf tenderness. Negative Homans sign bilaterally. NEUROLOGICAL: Awake and alert. Cranial nerves II through XII intact. Motor and sensory grossly within normal limits. Five out of 5 muscle strength in all muscle groups. Normal speech. Laboratory Laboratory Tests Test 10/13/16 10/13/16 03:24 05:23 Prothrombin Time 19.2 Prothromb Time International 1.7 Ratio Blood Gas Puncture Site LT BRACHIAL Blood Gas Patient Temperature 98.6 Blood Gas HCO3 44 Blood Gas Base Excess 17.5 Blood Gas Oxygen Saturation 97 Arterial Blood pH 7.35 Arterial Blood Partial 82 Pressure CO2 Arterial Blood Partial 165 Pressure O2 Arterial Blood Oxygen Content 17.9 Arterial Blood 1.8 Carboxyhemoglobin Arterial Blood Methemoglobin 1.0 Blood Gas Hemoglobin 13.0 Oxygen Delivery Device BIPAP Blood Gas Ventilator Setting 18IPAP/8EPAP Blood Gas Inspired Oxygen 100 Result Diagram: 10/12/16 0533 10/12/16 0533 Imaging Last Impressions Chest X-Ray 10/13/16 0600 Signed Impressions: Service Date/Time: Thursday, October 13, 2016 03:38 - CONCLUSION: 1. Cardiomegaly and findings of congestive heart failure. There has been no significant change when compared to the prior exam. 2. There is no evidence of pneumothorax. Jimi Chavez MD Chest CT 10/09/16 1710 Signed Impressions: Service Date/Time: Sunday, October 09, 2016 21:35 - CONCLUSION: 1. Mild to moderate right pneumothorax with a right-sided chest tube in place. There is a mild right pleural effusion. 2. Moderate left pleural effusion. There is accompanying areas of atelectasis or consolidation seen throughout the left lower lobe. 3. Cardiomegaly. There is a mild pericardial effusion. The enlargement of the heart is secondary to enlargement of the chambers. 4. Suspected debris at the posterior proximal trachea. Dhruv Allen MD Head CT 10/06/16 0000 Signed Impressions: Service Date/Time: Thursday, October 06, 2016 16:27 - CONCLUSION: 1. No acute intracranial abnormalities. Stable small lacunar infarct on the right as above. Chaka Campos MD Cervical Spine CT 10/06/16 0000 Signed Impressions: Service Date/Time: Thursday, October 06, 2016 16:27 - CONCLUSION: 1. No acute findings in the cervical spine. Moderate degenerative disc disease but no significant canal stenosis. Large right pleural effusion noted at the right lung apex. Chaka Campos MD Course Patient was transferred to CVICU yesterday on BIPAP. This morning he has improved somewhat with decreased confusion and tolerating being off BIPAP, Assessment and Plan Problem List: (1) COPD (chronic obstructive pulmonary disease) Status: Acute (2) Acute respiratory failure with hypoxia and hypercapnia Status: Acute (3) Dyspnea Status: Acute (4) Congestive heart failure Status: Acute Assessment and Plan 81 y/o male with end stage lung disease presents with right pneumothorax treated with a right pigtail catheter placed by IR with reasonable expansion of the right lung. He has a small residual right pneumothorax and effusions bilaterally on chest CT. I was asked to see him for possible surgical intervention for possible decortication. Unfortunately, he is NOT an operative candidate and would not likely benefit from any surgery. It is reasonable to maximize medical therapy and percutaneously drain his effusions, but he would not likely be weaned from a ventilator with anesthesia. Problem Qualifiers (1) Dyspnea: Qualified Code: R06.02 - Shortness of breath (2) Congestive heart failure: Qualified Code: I50.33 - Acute on chronic diastolic congestive heart failure (3) COPD (chronic obstructive pulmonary disease): Qualified Code: J43.9 - Pulmonary emphysema, unspecified emphysema type Danitza Bradford MD Oct 13, 2016 11:10
[2016-10-13 11:25] LABS: AUTOMATED NEUTROPHIL # 5.4 TH/MM3 (1.8-7.7); BASOPHIL % 0.1 % (0.0-2.0); EOSINOPHIL # 0.2 TH/MM3 (0-0.4); EOSINOPHIL % 2.2 % (0.0-4.0); HEMO FLAGS DIFF FINAL; LYMPH % 11.3 % (9.0-44.0); LYMPHOCYTE # 0.9 TH/MM3 (1.0-4.8); MEAN CORPUSCULAR HEMOGLOBIN 33.6 PG (27.0-34.0); MEAN CORPUSCULAR HGB CONC 33.6 % (32.0-36.0); NEUT % 69.4 % (16.0-70.0); PLATELET COUNT 116 TH/MM3 (150-450); WHITE BLOOD COUNT 7.8 TH/MM3 (4.0-11.0)
[2016-10-13 11:37] LABS: ANION GAP 3 MEQ/L (5-15); BICARBONATE GREATER THAN 45.0 MEQ/L (21.0-32.0); BLOOD UREA NITROGEN 23 MG/DL (7-18); CHLORIDE 93 MEQ/L (98-107); GLOMERULAR FILTRATION RATE 84 ML/MIN (>89); MAGNESIUM 2.1 MG/DL (1.5-2.5); POTASSIUM 4.1 MEQ/L (3.5-5.1); SODIUM (NA) 141 MEQ/L (136-145)
--- NOTE | 2016-10-13 13:09 | HHI.PR ---
Subjective Remarks still SOB but less chest tube draining Objective Vital Signs Date Time Temp Pulse Resp B/P Pulse Ox O2 Delivery O2 Flow Rate FiO2 10/13/16 12:00 99 Partial Non-Rebreather 15.00 10/13/16 12:00 76 10/13/16 12:00 97.9 76 18 114/74 95 10/13/16 11:21 97 45 10/13/16 08:00 95 Bi-Pap 65 10/13/16 07:33 97 45 10/13/16 07:00 97.9 76 18 102/54 95 10/13/16 07:00 77 10/13/16 06:10 99 55 10/13/16 05:57 97 Bi-Pap 65 10/13/16 05:50 95 Bi-Pap 65 10/13/16 05:50 95 65 10/13/16 04:45 95 Bi-Pap 100 10/13/16 04:40 91 Bi-Pap 100 10/13/16 04:35 95 100 10/13/16 04:10 90 Non-Rebreather 15.00 10/13/16 04:00 94 Venturi Mask 50 10/13/16 03:30 96 Nasal Cannula 3.00 10/13/16 03:24 97.9 67 24 112/63 95 10/13/16 03:24 80 10/13/16 00:00 96 Nasal Cannula 3.00 10/12/16 23:20 98.0 86 18 110/52 93 10/12/16 23:20 79 10/12/16 22:07 94 Nasal Cannula 3.00 10/12/16 21:00 97.7 87 15 138/64 94 10/12/16 20:46 93 Nasal Cannula 3.00 10/12/16 20:01 98.5 84 29 134/65 95 10/12/16 20:00 82 10/12/16 20:00 97 Nasal Cannula 4.00 10/12/16 19:20 95 Nasal Cannula 3.00 10/12/16 19:01 84 32 144/66 94 10/12/16 18:01 78 34 117/58 94 10/12/16 18:00 78 10/12/16 17:01 80 32 143/61 94 10/12/16 17:00 78 10/12/16 16:01 98.2 76 32 122/56 96 10/12/16 16:00 72 10/12/16 16:00 96 Nasal Cannula 4.00 10/12/16 15:01 76 27 140/62 96 10/12/16 15:00 76 10/12/16 14:01 72 34 124/49 95 10/12/16 14:00 68 I/O 10/12/16 10/12/16 10/12/16 10/13/16 10/13/16 10/13/16 07:00 15:00 23:00 07:00 15:00 23:00 Intake Total 480 ml 50 ml Output Total 585 ml 850 ml 840 ml Balance -585 ml -370 ml -790 ml Intake Oral 480 ml 50 ml IV Total 0 ml 0 ml Output Urine Total 525 ml 800 ml 800 ml Chest Tube Drainage Total 60 ml 50 ml 40 ml # Bowel Movements 0 0 1 Result Diagram: 10/13/16 1041 10/13/16 1041 Objective Remarks GENERAL: SKIN: Warm and dry. HEAD: Atraumatic. Normocephalic. EYES: Pupils equal and round. No scleral icterus. No injection or drainage. ENT: No nasal bleeding or discharge. Mucous membranes pink and moist. NECK: Trachea midline. No JVD. CARDIOVASCULAR: Regular rate and rhythm. RESPIRATORY: No accessory muscle use. Clear to auscultation. Breath sounds equal bilaterally. GASTROINTESTINAL: Abdomen soft, non-tender, nondistended. Hepatic and splenic margins not palpable. MUSCULOSKELETAL: Extremities without clubbing, cyanosis, or edema. No obvious deformities. NEUROLOGICAL: Awake and alert. No obvious cranial nerve deficits. Motor grossly within normal limits. Five out of 5 muscle strength in the arms and legs. Normal speech. PSYCHIATRIC: Appropriate mood and affect; insight and judgment normal. Assessment and Plan Assessment and Plan respiratory failue CHF Pleural effusion AFIB PLAN therapy for CHF O2 as needed Consider Pleurodesis Juan Antonio Romano MD Oct 13, 2016 13:09
--- NOTE | 2016-10-13 14:03 | HHI.PR ---
Subjective Remarks Seems better . On a Ventimask. Chest tube drained >100 CC today. No fever. CXR chest shows CHF changes.and no Pneumothorax Objective Vital Signs Date Time Temp Pulse Resp B/P Pulse Ox O2 Delivery O2 Flow Rate FiO2 10/13/16 12:00 99 Partial Non-Rebreather 15.00 10/13/16 12:00 76 10/13/16 12:00 97.9 76 18 114/74 95 10/13/16 11:21 97 45 10/13/16 08:00 95 Bi-Pap 65 10/13/16 07:33 97 45 10/13/16 07:00 97.9 76 18 102/54 95 10/13/16 07:00 77 10/13/16 06:10 99 55 10/13/16 05:57 97 Bi-Pap 65 10/13/16 05:50 95 Bi-Pap 65 10/13/16 05:50 95 65 10/13/16 04:45 95 Bi-Pap 100 10/13/16 04:40 91 Bi-Pap 100 10/13/16 04:35 95 100 10/13/16 04:10 90 Non-Rebreather 15.00 10/13/16 04:00 94 Venturi Mask 50 10/13/16 03:30 96 Nasal Cannula 3.00 10/13/16 03:24 97.9 67 24 112/63 95 10/13/16 03:24 80 10/13/16 00:00 96 Nasal Cannula 3.00 10/12/16 23:20 98.0 86 18 110/52 93 10/12/16 23:20 79 10/12/16 22:07 94 Nasal Cannula 3.00 10/12/16 21:00 97.7 87 15 138/64 94 10/12/16 20:46 93 Nasal Cannula 3.00 10/12/16 20:01 98.5 84 29 134/65 95 10/12/16 20:00 82 10/12/16 20:00 97 Nasal Cannula 4.00 10/12/16 19:20 95 Nasal Cannula 3.00 10/12/16 19:01 84 32 144/66 94 10/12/16 18:01 78 34 117/58 94 10/12/16 18:00 78 10/12/16 17:01 80 32 143/61 94 10/12/16 17:00 78 10/12/16 16:01 98.2 76 32 122/56 96 10/12/16 16:00 72 10/12/16 16:00 96 Nasal Cannula 4.00 10/12/16 15:01 76 27 140/62 96 10/12/16 15:00 76 10/12/16 14:01 72 34 124/49 95 10/12/16 14:00 68 I/O 10/12/16 10/12/16 10/12/16 10/13/16 10/13/16 10/13/16 07:00 15:00 23:00 07:00 15:00 23:00 Intake Total 480 ml 50 ml Output Total 585 ml 850 ml 840 ml Balance -585 ml -370 ml -790 ml Intake Oral 480 ml 50 ml IV Total 0 ml 0 ml Output Urine Total 525 ml 800 ml 800 ml Chest Tube Drainage Total 60 ml 50 ml 40 ml # Bowel Movements 0 0 1 Result Diagram: 10/13/16 1041 10/13/16 1041 Objective Remarks This elderly thinly built white male is pale and not dyspneic at rest. There is mild clubbing or cyanosis or icterus or lymphadenopathy. HEENT: Head normocephalic. Pupils are reactive and equal. Tongue is dry. Throat is clear. Nasal mucosa is clear. NECK: Supple with mild venous distension at 45 degrees. Trachea midline. No thyroid enlargement. CHEST: Equal movements with decreased excursions. Breath sounds diminished at the bases with occ wheezes bilaterally. Crackles heard at lung bases HEART: The heart sounds are irregular S1-S2. No murmur. No S3. ABDOMEN: Soft, protuberant. No masses or organomegaly or tenderness. Bowel sounds active. EXTREMITIES: Mild varicosities and decreased peripheral pulses and reflexes are 1+ with no gross motor deficits.Edema 1 + NEUROLOGIC: No focal deficit RECTAL: Exam is deferred. SKIN: No lesions. Assessment and Plan Assessment and Plan IMPRESSION 1. Large right pleural effusion with right basilar atelectasis. 2. CHF with ASHD 3. Atrial fibrillation 4. Hypertension 5. COPD and possible basilar pneumonia. Plan : 1. Chest tube to Drainage. 2. CXR in am 3. Nebs qid , Duoneb. 4. Haldol 1 mg tid prn. 5. Will wean O2 to N/C 3 L. 6. S/Q Heparin BID. 7. Will do [place] pleurodesis 8. Continue Lasix 40 mg IV Q8H. Paulo Rooney MD Oct 13, 2016 14:03
[2016-10-13] MEDS: WARFARIN SOD 5 MG TAB PO SCH (15:03)
[2016-10-14] VITALS (12 sets, daily range): BP systolic 101–139; BP diastolic 48–63; PULSE 64–84; RESP 16–30; TEMP 97.6–99.3; O2SAT 95–98
[2016-10-14] MEDS: CHLORHEXIDINE GLUCONATE 2 % 1 PACK (2 CLOTHS) TOP SCH (04:00)
[2016-10-14 06:10] LABS: AUTOMATED NEUTROPHIL # 4.6 TH/MM3 (1.8-7.7); BASOPHIL % 0.3 % (0.0-2.0); EOSINOPHIL # 0.3 TH/MM3 (0-0.4); EOSINOPHIL % 3.9 % (0.0-4.0); HEMATOCRIT 35.3 % (39.0-51.0); HEMO FLAGS DIFF FINAL; LYMPH % 15.1 % (9.0-44.0); LYMPHOCYTE # 1.1 TH/MM3 (1.0-4.8); MEAN CELL VOLUME 98.9 FL (80.0-100.0); MEAN CORPUSCULAR HEMOGLOBIN 33.6 PG (27.0-34.0); MEAN CORPUSCULAR HGB CONC 33.9 % (32.0-36.0); MONO % 15.5 % (0.0-8.0); NEUT % 65.2 % (16.0-70.0); PLATELET COUNT 119 TH/MM3 (150-450); RED BLOOD COUNT 3.57 MIL/MM3 (4.50-5.90); RED CELL DISTRIBUTION WIDTH 14.9 % (11.6-17.2)
[2016-10-14 06:13] LABS: INTERNATIONAL NORMALIZED RATIO 1.8 RATIO; PROTHROMBIN TIME - PATIENT 20.7 SEC (9.8-11.6)
[2016-10-14 06:33] LABS: BICARBONATE 44.5 MEQ/L (21.0-32.0); POTASSIUM 3.8 MEQ/L (3.5-5.1)
[2016-10-14] MEDS: RESP: ALBUTEROL 2.5 MG/IPRATROPIUM 0.5 MG NEB (SCH) NEB ×4 (07:40→19:58)
[2016-10-14] MEDS: POTASSIUM CHLORIDE 20 MEQ CONTROLLED RELEASE TAB PO SCH ×3 (08:05→20:21)
[2016-10-14] MEDS: FUROSEMIDE 40 MG/4 ML VIAL IV PUSH SCH ×3 (08:05→20:21)
[2016-10-14] MEDS: FAMOTIDINE 20 MG/2 ML VIAL IV PUSH SCH ×2 (09:29→20:21)
[2016-10-14] MEDS: ATENOLOL 50 MG TAB PO SCH ×2 (09:29→20:20)
[2016-10-14] MEDS: DOCUSATE SODIUM 100 MG CAP PO SCH ×2 (09:29→20:20)
[2016-10-14] MEDS: SODIUM CHLORIDE 0.9% FLUSH 5 ML FLUSH IV FLUSH SCH ×2 (09:30→20:21)
--- NOTE | 2016-10-14 11:07 | MB ---
cc: FABIANA EISENBERG DATE OF CONSULTATION: 10/14/2016 DATE OF : 1935 REASON FOR CONSULTATION Heart failure. HISTORY OF PRESENT ILLNESS 81-year-old male with past medical history significant for severe COPD on home O2, recurrent right pleural effusions, hypertension, hyperlipidemia, atrial fibrillation and moderate aortic insufficiency. He was admitted to the hospital on 10/06/2016 with hypoxemia and shortness of breath. He was initially placed on BiPAP with minimal improvement. He was noted to have a left pleural effusion which was drained with a chest tube, however, respiratory-ruiz he is still doing poorly. Given his history of heart failure cardiology has been consulted for further recommendations. The patient has a history of congestive heart failure, supposedly since the early . Last echocardiogram done here this month shows an EF of 50-60% with no wall motion abnormalities. He does have moderate aortic insufficiency, to moderate mitral regurgitation, which were present in the past. His pulmonary artery pressure is 85 mmHg, which is significantly increased from previous. EKG shows atrial fibrillation with a right bundle branch block which is unchanged from previous. Currently the patient has no complaints, however, he is on a BiPAP machine and seems to be a little confused. Troponin here was negative at 0.03. BNP was 154. REVIEW OF SYSTEMS Unobtainable. PAST MEDICAL HISTORY 1. Hypertension. 2. Hyperlipidemia. 3. Mild thrombocytopenia. 4. Venous insufficiency. 5. Cholelithiasis. 6. Prior cellulitis. 7. Left knee surgery. 8. COPD on O2 oxygen at home. 9. Moderate aortic regurgitation. 10.[id number] mitral regurgitation. 11.Atrial fibrillation. 12.Pulmonary hypertension. ALLERGIES No known drug allergies. FAMILY HISTORY Noncontributory. MEDICATIONS Medication list reviewed. SOCIAL HISTORY He is a former smoker and social drinker. He denies illicit drug use. PHYSICAL EXAMINATION VITAL SIGNS: Temperature 97.6, respiratory rate 30, pulse 84, blood pressure 110/48, O2 sat 95% in BiPAP FIO2 0.45. GENERAL: He is awake, in no distress. NECK: There is mild JVD. No lymphadenopathy. HEART: Irregularly irregular. No murmurs, rubs or gallops appreciated. LUNGS: Poor expiratory effort. Bilateral pulmonary rales. EXTREMITIES: No edema. Venous diastasis changes in both legs. LABORATORY DATA CBC: Hemoglobin 12, hematocrit 35, platelet count 119. INR 1.8. Chemistries: Sodium 141, potassium 3.8, BUN 21, creatinine 0.86. Troponin less than 0.03. BNP 154. Urinalysis unremarkable. IMAGING STUDIES Head CT: No acute intracranial abnormalities. Cervical spine CT: No acute cervical spine. No significant canal stenosis. Chest CT: Mild to moderate right pneumothorax with a right-sided chest tube in place. Moderate left pleural effusion with atelectasis and consolidation. Mild pericardial effusion. ECHOCARDIOGRAM Echocardiogram: Ejection fraction 55-60%. No wall motion abnormalities. Moderate aortic valve regurgitation. [id number] mitral regurgitation. Left atrial enlargement. Right atrial enlargement. Pulmonary peak systolic pressure of 85 mmHg. Small pericardial effusion. ASSESSMENT 81-year-old male with the above history and findings presented with hypoxemia and shortness of breath in the setting of a large pleural effusion status post chest tube placement and acute on chronic COPD exacerbation. He has been evaluated by CT surgery, Dr. Bradford, for decortication, however, patient was deemed poor surgical candidate. Dr. Bradford understands that the patient is not a surgical candidate and would not benefit from any surgery. He does have significant valvulopathy with at least moderate aortic insufficiency and mitral regurgitation; however, his ejection fraction is 60%. Troponin's and BNP are unremarkable. All these cardiac findings seem to be longstanding. Palliative Care has already seen the patient given his long-term poor prognosis. At this point given that the patient is not a surgical candidate for any surgery I would recommend conservative medical management for HF. Recommendations: 1. Low cholesterol and salt diet. 2. IV diuresis following inputs and outputs, electrolytes and renal function closely and daily weights. 3. Continue respiratory support per the labor conciliator and precipitator operator. Thank you for the opportunity to take part in the care of this patient. We will be available on a p.r.n. basis for any questions or concerns. MD SISSY Peters/BT /10:16 AM /10:42 AM SHARLENE
--- NOTE | 2016-10-14 11:29 | HHI.PR ---
Subjective Remarks Patient seen board finisher. PT at bedside. Patient is up at the bedside, complaints of sob. He is also on BiPAP. No fever or chills. No n/v. He feels very weak and has a very weak voice. Denies chest pain. Objective Vitals Vital Signs Date Time Temp Pulse Resp B/P Pulse Ox O2 Delivery O2 Flow Rate FiO2 10/14/16 11:00 76 10/14/16 11:00 97.8 76 16 116/58 96 10/14/16 08:00 95 Bi-Pap 45 10/14/16 07:41 95 45 10/14/16 07:41 95 BiPAP 45 10/14/16 07:00 97.6 84 30 110/48 95 10/14/16 07:00 84 10/14/16 04:58 96 45 10/14/16 04:00 93 Bi-Pap 5.00 10/14/16 04:00 98.0 74 24 116/63 97 10/14/16 04:00 74 10/14/16 00:34 96 45 10/14/16 00:00 74 10/14/16 00:00 99.3 74 20 105/53 97 10/14/16 00:00 93 Bi-Pap 5.00 10/13/16 22:14 97 45 10/13/16 21:00 97 Bi-Pap 45 10/13/16 20:45 96 45 10/13/16 20:21 94 Nasal Cannula 5.00 10/13/16 20:00 93 Nasal Cannula 5.00 10/13/16 20:00 99.3 76 24 124/57 93 10/13/16 20:00 80 10/13/16 16:00 97 Partial Non-Rebreather 5.00 Nasal Cannula 10/13/16 15:46 97 Nasal Cannula 5.00 10/13/16 15:00 75 10/13/16 15:00 98.2 70 22 128/56 97 10/13/16 12:00 99 Partial Non-Rebreather 15.00 10/13/16 12:00 76 10/13/16 12:00 97.9 76 18 114/74 95 I/O 10/13/16 10/13/16 10/13/16 10/14/16 10/14/16 10/14/16 07:00 15:00 23:00 07:00 15:00 23:00 Intake Total 50 ml 880 ml 240 ml Output Total 840 ml 820 ml 650 ml Balance -790 ml 60 ml -410 ml Intake Oral 50 ml 850 ml 240 ml IV Total 0 ml 30 ml 0 ml Output Urine Total 800 ml 800 ml 650 ml Chest Tube Drainage Total 40 ml 20 ml 0 ml # Bowel Movements 1 0 0 Result Diagram: 10/14/16 0546 10/14/16 0546 Imaging Last Impressions Chest X-Ray 10/13/16 0600 Signed Impressions: Service Date/Time: Thursday, October 13, 2016 03:38 - CONCLUSION: 1. Cardiomegaly and findings of congestive heart failure. There has been no significant change when compared to the prior exam. 2. There is no evidence of pneumothorax. Jimi Chavez MD Chest CT 10/09/16 1710 Signed Impressions: Service Date/Time: Sunday, October 09, 2016 21:35 - CONCLUSION: 1. Mild to moderate right pneumothorax with a right-sided chest tube in place. There is a mild right pleural effusion. 2. Moderate left pleural effusion. There is accompanying areas of atelectasis or consolidation seen throughout the left lower lobe. 3. Cardiomegaly. There is a mild pericardial effusion. The enlargement of the heart is secondary to enlargement of the chambers. 4. Suspected debris at the posterior proximal trachea. Dhruv Allen MD Head CT 10/06/16 0000 Signed Impressions: Service Date/Time: Thursday, October 06, 2016 16:27 - CONCLUSION: 1. No acute intracranial abnormalities. Stable small lacunar infarct on the right as above. Chaka Campos MD Cervical Spine CT 10/06/16 0000 Signed Impressions: Service Date/Time: Thursday, October 06, 2016 16:27 - CONCLUSION: 1. No acute findings in the cervical spine. Moderate degenerative disc disease but no significant canal stenosis. Large right pleural effusion noted at the right lung apex. Chaka Campos MD Objective Remarks GENERAL: Elderly chronically ill-appearing male HEENT: Head is normocephalic without any lesions or masses noted. Facial features are symmetric. Eyes: Extraocular muscles are intact. Conjunctivae were clear. NECK: Supple without any masses. Trachea midline no deviation. No JVD, CARDIAC: Regular rhythm, regular rate. S1/S2 are heard. No murmurs gallops or rubs. LUNGS: Diminished in the bases bilaterally. Mildly labored breathing on 4 L nasal cannula. Chest tube in place at right chest. ABDOMEN: Soft, nontender. Nondistended. Bowel sounds heard in all 4 quadrants. No organomegaly or masses. Negative rebound, negative guarding EXTREMITIES: Chronic venous stasis changes of the bilateral lower extremities with trace pedal edema. NEUROLOGY: More awake and alert x name only. Motor grossly normal. A/P Assessment and Plan Acute hypoxic/hypercapnic respiratory failure, due to right pleural effusion, acute diastolic congestive heart failure, chronic cor pulmonale/pulmonary hypertension, Continue diuresis Continue captopril, atenolol, Lasix Echocardiogram indicates ejection fraction 5560 percent. Systolic function was normal. Moderate aortic valve regurgitation. Mild to moderate mitral valve regurgitation. Severely dilated left and right atrium. Tricuspid valve severe regurgitation. Small pericardial effusion. PA peak pressure 85 mmhg. Manager Balance consulted, Dr Manning following. Recurrent, Large right pleural effusion status post thoracentesis on October 06 with 3200 ml of clear yellow transudative fluid removed. Right pneumothorax Post thoracentesis-he has chest tube with persistent pneumothorax however the chest tube is draining significant amounts of pleural fluid and is not likely adequate to reinflate the lung. Pulmonology following for chest tube management. There has been no sign of decrease and pleural fluid output. The pneumothorax is anterior and not clearly seen on the AP chest x-rays however was seen on chest CT. It is not reinflating with the chest tube currently in place which is only draining pleural fluid. Patient cannot have pleurodesis with a pneumothorax per pulmonology. Patient will likely need CT surgery to evaluate for possible decortication. Dr. Jonathan wallis following. The patient's son and daughter feels that the patient would want continued aggressive care and they do requests everything be done for the patient. [facility] cardiothoracic [facility] evaluation. Seen by Dr Jensen PARRA, he is not a candidate for surgical intervention, discusse dwith the patient son and daughter. Per pulm attempt to do pleurodesis by IR. IR consulted however the patient is on BioPAP and deconditioned and not possible for pleurodesis at thisa time. Attempt to wean off BiPBP yesterday not successful. PT also following. Daughter wants to talk with palliative care Acute metabolic encephalopathy with agitation Patient's daughter feels that the sedation is causing it however the patient became anxious and confused and was trying to get out of bed, pulling out chest tube. Soft restraints, low-dose Xanax and low-dose haldol IM as needed to prevent disruption of care, to use only a verbal attempts to calm the patient are unsuccessful. Chronic obstructive pulmonary disease with chronic CO2 retention. Continue O2 supplementation maintain O2 sats greater 92% Continue presleyo ciara Manager Balance following the patient Chronic atrial fibrillation Beta eileen continued Coumadin continued, pharmacy consulted for Coumadin management Mildly liver enzyme elevation. Improving Continue monitor DVT prophylaxis SCDs Patient on Coumadin INR CODE STATUS full code. Confirmed with patient's son Anselmo bedside and he discussed as well with his sister. Patient desires both his son and daughter to make joint decisions for him if he is incapacitated. Please see note and previous discussion from October [address] Sparks. Guarded prognosis. Palliative care is following the patient. Daughter wants to talk with palliative care. Discussed with ICU nurse, patient. Rebeca Grey MD Oct 14, 2016 11:29
[2016-10-14] MEDS ORDERED: POTASSIUM PHOSPHATE MONOBASIC 500 MG TAB PO PRN (11:30)
[2016-10-14] MEDS ORDERED: SODIUM PHOSPHATE INJ 30 MMOL in SODIUM CHLOR 0.9% 250 ML INJ 240 ML IV PRN (11:30)
[2016-10-14] MEDS ORDERED: POTASSIUM CHLOR 40 MEQ PREMIX 100 ML IV PRN ×2 (11:30)
[2016-10-14] MEDS ORDERED: POTASSIUM CL 40 MEQ/30 ML LIQ UDC PO/TUBE PRN ×2 (11:30)
[2016-10-14] MEDS ORDERED: MAGNESIUM SULFATE INJ 4 GM in SODIUM CHLORIDE 0.9% INJ 92 ML IV PRN (11:30)
[2016-10-14] MEDS ORDERED: MAGNESIUM OXIDE 400 MG TAB PO PRN (11:30)
[2016-10-14] MEDS ORDERED: POTASSIUM CHLOR 20 MEQ PREMIX 100 ML IV PRN ×2 (11:30)
[2016-10-14] MEDS ORDERED: MAGNESIUM SULFATE INJ 2 GM in SODIUM CHLORIDE 0.9% INJ 96 ML IV PRN (11:30)
[2016-10-14] MEDS ORDERED: POTASSIUM PHOSPHATE MONOBASIC 500 MG TAB PO/TUBE PRN (11:30)
[2016-10-14] MEDS ORDERED: POTASSIUM PHOSPHATE INJ 30 MMOL in SODIUM CHLOR 0.9% 250 ML INJ 250 ML IV PRN (11:30)
[2016-10-14] MEDS: WARFARIN SOD 5 MG TAB PO SCH (15:35)
--- NOTE | 2016-10-14 19:18 | HHI.PR ---
Subjective Remarks Placed on Bipap this am FIo2 at 40 %. Chest tube draining less. No fever.Will have pleurodesis with Talc CXR chest shows CHF changes.and no Pneumothorax Objective Vital Signs Date Time Temp Pulse Resp B/P Pulse Ox O2 Delivery O2 Flow Rate FiO2 10/14/16 16:38 98.8 80 18 117/56 96 10/14/16 16:38 80 10/14/16 16:00 96 Nasal Cannula 4.00 10/14/16 12:45 98 Partial Non-Rebreather 70 10/14/16 11:25 97 40 10/14/16 11:00 76 10/14/16 11:00 97.8 76 16 116/58 96 10/14/16 08:00 95 Bi-Pap 45 10/14/16 07:41 95 45 10/14/16 07:41 95 BiPAP 45 10/14/16 07:00 97.6 84 30 110/48 95 10/14/16 07:00 84 10/14/16 04:58 96 45 10/14/16 04:00 93 Bi-Pap 5.00 10/14/16 04:00 98.0 74 24 116/63 97 10/14/16 04:00 74 10/14/16 00:34 96 45 10/14/16 00:00 74 10/14/16 00:00 99.3 74 20 105/53 97 10/14/16 00:00 93 Bi-Pap 5.00 10/13/16 22:14 97 45 10/13/16 21:00 97 Bi-Pap 45 10/13/16 20:45 96 45 10/13/16 20:21 94 Nasal Cannula 5.00 10/13/16 20:00 93 Nasal Cannula 5.00 10/13/16 20:00 99.3 76 24 124/57 93 10/13/16 20:00 80 I/O 10/13/16 10/13/16 10/13/16 10/14/16 10/14/16 10/14/16 07:00 15:00 23:00 07:00 15:00 23:00 Intake Total 50 ml 880 ml 240 ml 300 ml Output Total 840 ml 820 ml 650 ml 1140 ml Balance -790 ml 60 ml -410 ml -840 ml Intake Oral 50 ml 850 ml 240 ml 300 ml IV Total 0 ml 30 ml 0 ml Output Urine Total 800 ml 800 ml 650 ml 1100 ml Chest Tube Drainage Total 40 ml 20 ml 0 ml 40 ml # Bowel Movements 1 0 0 0 Result Diagram: 10/14/1646 10/14/16545 Objective Remarks This elderly thinly built white male is pale and dyspneic at rest. There is no clubbing or cyanosis or icterus or lymphadenopathy. HEENT: Head normocephalic. Pupils are reactive and equal. Tongue is dry. Throat is clear. Nasal mucosa is clear. NECK: Supple with mild venous distension at 45 degrees. Trachea midline. No thyroid enlargement. CHEST: Equal movements with decreased excursions. Breath sounds diminished at the bases with occ wheezes bilaterally. Crackles heard at lung bases HEART: The heart sounds are irregular S1-S2. No murmur. No S3. ABDOMEN: Soft, protuberant. No masses or organomegaly or tenderness. Bowel sounds active. EXTREMITIES: decreased peripheral pulses and reflexes are 1+ with no gross motor deficits.Edema 1 + NEUROLOGIC: No focal deficit RECTAL: Exam is deferred. SKIN: No lesions. Assessment and Plan Assessment and Plan IMPRESSION 1. Large right pleural effusion with right basilar atelectasis. 2. CHF with ASHD 3. Atrial fibrillation 4. Hypertension 5. COPD and possible basilar pneumonia. Plan : 1. Chest tube to Drainage. 2. BiPAP 12/5 Cm , FIO2 40 % 3. Nebs qid , Duoneb. 4. Haldol 1 mg tid prn. 5. Chest X ray in am 6. S/Q Heparin BID. 7. Will do Talc pleurodesis 8. Continue Lasix 40 mg IV bid Paulo Rooney MD Oct 14, 2016 19:18
--- NOTE | 2016-10-14 20:24 | HHI.HCPN ---
Reason for visit a. To assist with evaluation and management of symptoms including: dyspnea; confusion; pain b. To assist medical decision maker(s) with: better understanding of current medical conditions; weighing benefits/burdens of medical treatment options; making medical treatment decisions. . Subjective/Interval History Mr. Duncan is awake and confused on both my visits today. In the AM he had just been put back on BiPAP and could not really communicate. In the evening when i returned, he was on nasal cannula. He did not know where he was or why he was here. He answered some very simple questions appropriately -- he denied pain. Patient has not been agitated per nursing staff. He has not received Haloperidol sicne 10/10. He has not received alprazolam since 10/11. He has not needed IV morphine since 10/08/16. Patient continues to go on and off BiPAP. Chest tube continues to drain, though drainage decreasing. CV surgery feels he is not a good candidate for pleurodesis surgery. Pulmonary is still planning to try talc pleurodesis if patient becomes stable enough to bring down for the procedure. . Family/friend interactions Met with daughter Raissa on floor for over 50 minutes. Raissa expresses her concern that the patient's confusion all took place since he arrived at the hospital and asks if the medication we gave him resulted in brain damage. I spoke about delirium in elderly hospital patients and how I did not think there was any brain damage from the medicines he was given. I felt his confusion was due to delirium which has many factors including his illness, the unfamiliar environment, his respiratory issues, etc. We discussed prognosis. We discussed how he was not a candidate for surgical pleurodesis but might be eligible for talc pleurodesis if he stabilized. We discussed the benefits and burdens of that procedure. We discussed medical management including minimizing salt intake. She said she only used Himalayan salt and I explained that any salt could probably make this worse. We discussed resuscitation status. Jose explained that there was disagreement between her and her brother. She felt the patient would want to be kept alive. She also indicated if she allowed the patient to without a resuscitation attempt she would always be wondering if she did the right thing, She became more and more convincing that she wanted him to remain FULL CODE and wanted aggressive care. If he continued to decline in spite of aggressive care or ended up on lfie support, it might be easire for her to make a decision then. I answered all questions. At one time she got a family friend, Aneesh , on the phone and was explaining to him what I just explained to her. Raissa expressed her appreciation for the time spent. . Advance Directives Living Will: Never completed Health Care Surrogate: Never completed Durable Power of Consulting Services Manager: Completed, but not made available Advance Directive Specifics Date completed: The patient has completed a DURABLE POWER OF CLIENT SPECIALIST document. Daughter does not believe this includes healthcare decision-making. Date of completion is unknown. Daughter tells me she has legal/financial power of assistant district attorney. . Health Care Surrogate(s): No written designation of health care surrogacy. Patient , has on several occasions, verbally stated that he wants BOTH of his children to participate in health care decision making if he is incapacitated to do so. . . Documented care wishes: No written documentation of health care goals/preferences. . Objective Vital Signs Date Time Temp Pulse Resp B/P Pulse Ox O2 Delivery O2 Flow Rate FiO2 10/14/16 16:38 98.8 80 18 117/56 96 10/14/16 16:38 80 10/14/16 16:00 96 Nasal Cannula 4.00 10/14/16 12:45 98 Partial Non-Rebreather 70 10/14/16 11:25 97 40 10/14/16 11:00 76 10/14/16 11:00 97.8 76 16 116/58 96 10/14/16 08:00 95 Bi-Pap 45 10/14/16 07:41 95 45 10/14/16 07:41 95 BiPAP 45 10/14/16 07:00 97.6 84 30 110/48 95 10/14/16 07:00 84 10/14/16 04:58 96 45 10/14/16 04:00 93 Bi-Pap 5.00 10/14/16 04:00 98.0 74 24 116/63 97 10/14/16 04:00 74 10/14/16 00:34 96 45 10/14/16 00:00 74 10/14/16 00:00 99.3 74 20 105/53 97 10/14/16 00:00 93 Bi-Pap 5.00 10/13/16 22:14 97 45 10/13/16 21:00 97 Bi-Pap 45 10/13/16 20:45 96 45 10/13/16 20:21 94 Nasal Cannula 5.00 10/13/16 20:00 93 Nasal Cannula 5.00 10/13/16 20:00 99.3 76 24 124/57 93 10/13/16 20:00 80 Intake & Output 10/14/16 10/14/16 07:00 19:00 Intake Total 240 ml 300 ml Output Total 650 ml 1140 ml Balance -410 ml -840 ml Intake Oral 240 ml 300 ml IV Total 0 ml Output Urine Total 650 ml 1100 ml Chest Tube Drainage Total 0 ml 40 ml # Bowel Movements 0 0 . Physical Exam CONSTITUTIONAL/GENERAL: This is a frail appearing male looking his stated age. Awake. Able to answer simple questions. Confused. Disoriented to place and time. No apparent distress. Some inappropriate laughter. TUBES/LINES/DRAINS: Vital catheter; soft wrist restraints; right sided chest tube; peripheral IV; alternating from nasal cannula to BiPAP. SKIN: No jaundice, rashes. New onset necrotic appearing toes on right foot. Ecchymoses on upper extremities. Chronic venous stasis changes on both lower extremities. Actinic damage noted in sun exposed areas. Skin temperature appropriate. Not diaphoretic. HEAD: Atraumatic. Normocephalic. EYES: Pupils equal and round. EOMs intact. No scleral icterus. No injection or drainage. Fundi not examined. ENT:Appears to hear me fine. CARDIOVASCULAR: Irregular rhythm without murmurs, gallops, or rubs. JVD not seen. RESPIRATORY/CHEST: Symmetric, unlabored respirations. Dimininshed breath sounds bilaterally. Little air movement heard. Chest tube is present on the right. No wheezes, rales, or rhonchi heard. GASTROINTESTINAL: Abdomen soft, non-tender, nondistended. No hepato-splenomegaly , or palpable masses. No guarding. Bowel sounds present. GENITOURINARY: Without palpable bladder distension. Vital catheter in place. MUSCULOSKELETAL: Extremities without clubbing, cyanosis, edema. Chronic venous stasis changes apparent in both lower extremities. No calf tenderness. No mottling. LYMPHATICS: Not examined. NEUROLOGICAL: Awake, verbal, follows basic commands intermittently. Answers a few simple questions appropriately but disoriented to time/place. Moves all extremities. PSYCHIATRIC: No obvious anxiety/depression. No obvious hallucinations or other psychotic thought process. Some inappropriate laughter. . Diagnostic Tests Laboratory Laboratory Tests Test 10/12/16 10/13/16 10/13/16 10/13/16 05:33 03:24 05:23 10:41 White Blood Count 5.8 TH/MM3 7.8 TH/MM3 (4.0-11.0) (4.0-11.0) Red Blood Count 3.68 MIL/MM3 3.80 MIL/MM3 (4.50-5.90) (4.50-5.90) Hemoglobin 11.7 GM/DL 12.7 GM/DL (13.0-17.0) (13.0-17.0) Hematocrit 36.7 % 38.0 % (39.0-51.0) (39.0-51.0) Mean Corpuscular Volume 99.7 FL 100.0 FL (80.0-100.0) (80.0-100.0) Mean Corpuscular Hemoglobin 31.9 PG 33.6 PG (27.0-34.0) (27.0-34.0) Mean Corpuscular Hemoglobin 32.0 % 33.6 % Concent (32.0-36.0) (32.0-36.0) Red Cell Distribution Width 14.1 % 15.0 % (11.6-17.2) (11.6-17.2) Platelet Count 107 TH/MM3 116 TH/MM3 (150-450) (150-450) Mean Platelet Volume 7.9 FL 8.5 FL (7.0-11.0) (7.0-11.0) Neutrophils (%) (Auto) 63.4 % 69.4 % (16.0-70.0) (16.0-70.0) Lymphocytes (%) (Auto) 17.6 % 11.3 % (9.0-44.0) (9.0-44.0) Monocytes (%) (Auto) 14.0 % 17.0 % (0.0-8.0) (0.0-8.0) Eosinophils (%) (Auto) 4.5 % (0.0-4.0) 2.2 % (0.0-4.0) Basophils (%) (Auto) 0.5 % (0.0-2.0) 0.1 % (0.0-2.0) Neutrophils # (Auto) 3.7 TH/MM3 5.4 TH/MM3 (1.8-7.7) (1.8-7.7) Lymphocytes # (Auto) 1.0 TH/MM3 0.9 TH/MM3 (1.0-4.8) (1.0-4.8) Monocytes # (Auto) 0.8 TH/MM3 1.3 TH/MM3 (0-0.9) (0-0.9) Eosinophils # (Auto) 0.3 TH/MM3 0.2 TH/MM3 (0-0.4) (0-0.4) Basophils # (Auto) 0.0 TH/MM3 0.0 TH/MM3 (0-0.2) (0-0.2) CBC Comment DIFF FINAL DIFF FINAL Differential Comment Prothrombin Time 16.4 SEC 19.2 SEC (9.8-11.6) (9.8-11.6) Prothromb Time International 1.5 RATIO 1.7 RATIO Ratio Sodium Level 143 MEQ/L 141 MEQ/L (136-145) (136-145) Potassium Level 3.7 MEQ/L 4.1 MEQ/L (3.5-5.1) (3.5-5.1) Chloride Level 95 MEQ/L 93 MEQ/L (98-107) (98-107) Carbon Dioxide Level GREATER THAN GREATER THAN 45.0 MEQ/L 45.0 MEQ/L (21.0-32.0) (21.0-32.0) Anion Gap 3 MEQ/L (5-15) 3 MEQ/L (5-15) Blood Urea Nitrogen 23 MG/DL (7-18) 23 MG/DL (7-18) Creatinine 0.81 MG/DL 0.87 MG/DL (0.60-1.30) (0.60-1.30) Estimat Glomerular Filtration 91 ML/MIN (>89) 84 ML/MIN (>89) Rate Random Glucose 90 MG/DL 101 MG/DL (74-106) (74-106) Calcium Level 8.1 MG/DL 8.4 MG/DL (8.5-10.1) (8.5-10.1) Vitamin B12 Level 572 PG/ML (193-986) Folate 16.9 NG/ML (3.1-17.5) Blood Gas Puncture Site LT BRACHIAL Blood Gas Patient Temperature 98.6 Blood Gas HCO3 44 mmol/L (22-26) Blood Gas Base Excess 17.5 mmol/L (-2-2) Blood Gas Oxygen Saturation 97 % (90-100) Arterial Blood pH 7.35 (7.380-7.420) Arterial Blood Partial 82 mmHg (38-42) Pressure CO2 Arterial Blood Partial 165 mmHg Pressure O2 (61-120) Arterial Blood Oxygen Content 17.9 Vol % (12.0-20.0) Arterial Blood 1.8 % (0-4) Carboxyhemoglobin Arterial Blood Methemoglobin 1.0 % (0-2) Blood Gas Hemoglobin 13.0 G/DL (12.0-16.0) Oxygen Delivery Device BIPAP Blood Gas Ventilator Setting 18IPAP/8EPAP Blood Gas Inspired Oxygen 100 % Magnesium Level 2.1 MG/DL (1.5-2.5) Test 10/13/16 10/14/16 18:03 05:46 Prealbumin 9 MG/DL (20-40) White Blood Count 7.0 TH/MM3 (4.0-11.0) Red Blood Count 3.57 MIL/MM3 (4.50-5.90) Hemoglobin 12.0 GM/DL (13.0-17.0) Hematocrit 35.3 % (39.0-51.0) Mean Corpuscular Volume 98.9 FL (80.0-100.0) Mean Corpuscular Hemoglobin 33.6 PG (27.0-34.0) Mean Corpuscular Hemoglobin 33.9 % Concent (32.0-36.0) Red Cell Distribution Width 14.9 % (11.6-17.2) Platelet Count 119 TH/MM3 (150-450) Mean Platelet Volume 8.0 FL (7.0-11.0) Neutrophils (%) (Auto) 65.2 % (16.0-70.0) Lymphocytes (%) (Auto) 15.1 % (9.0-44.0) Monocytes (%) (Auto) 15.5 % (0.0-8.0) Eosinophils (%) (Auto) 3.9 % (0.0-4.0) Basophils (%) (Auto) 0.3 % (0.0-2.0) Neutrophils # (Auto) 4.6 TH/MM3 (1.8-7.7) Lymphocytes # (Auto) 1.1 TH/MM3 (1.0-4.8) Monocytes # (Auto) 1.1 TH/MM3 (0-0.9) Eosinophils # (Auto) 0.3 TH/MM3 (0-0.4) Basophils # (Auto) 0.0 TH/MM3 (0-0.2) CBC Comment DIFF FINAL Differential Comment Prothrombin Time 20.7 SEC (9.8-11.6) Prothromb Time International 1.8 RATIO Ratio Sodium Level 141 MEQ/L (136-145) Potassium Level 3.8 MEQ/L (3.5-5.1) Chloride Level 93 MEQ/L (98-107) Carbon Dioxide Level 44.5 MEQ/L (21.0-32.0) Anion Gap 4 MEQ/L (5-15) Blood Urea Nitrogen 21 MG/DL (7-18) Creatinine 0.86 MG/DL (0.60-1.30) Estimat Glomerular Filtration 85 ML/MIN (>89) Rate Random Glucose 103 MG/DL (74-106) Calcium Level 8.3 MG/DL (8.5-10.1) Phosphorus Level 2.7 MG/DL (2.5-4.9) . Result Diagram: 10/14/16 0546 10/14/16 0546 Microbiology * Blood and pleural fluid cultures were negative . . Imaging Last Impressions Chest X-Ray 10/13/16 0600 Signed Impressions: Service Date/Time: Thursday, October 13, 2016 03:38 - CONCLUSION: 1. Cardiomegaly and findings of congestive heart failure. There has been no significant change when compared to the prior exam. 2. There is no evidence of pneumothorax. Jimi Chavez MD Chest CT 10/09/16 1710 Signed Impressions: Service Date/Time: Sunday, October 09, 2016 21:35 - CONCLUSION: 1. Mild to moderate right pneumothorax with a right-sided chest tube in place. There is a mild right pleural effusion. 2. Moderate left pleural effusion. There is accompanying areas of atelectasis or consolidation seen throughout the left lower lobe. 3. Cardiomegaly. There is a mild pericardial effusion. The enlargement of the heart is secondary to enlargement of the chambers. 4. Suspected debris at the posterior proximal trachea. Dhruv Allen MD Head CT 10/06/16 0000 Signed Impressions: Service Date/Time: Thursday, October 06, 2016 16:27 - CONCLUSION: 1. No acute intracranial abnormalities. Stable small lacunar infarct on the right as above. Chaka Campos MD Cervical Spine CT 10/06/16 0000 Signed Impressions: Service Date/Time: Thursday, October 06, 2016 16:27 - CONCLUSION: 1. No acute findings in the cervical spine. Moderate degenerative disc disease but no significant canal stenosis. Large right pleural effusion noted at the right lung apex. Chaka Campos MD . Procedures * Thoracentesis/chest tube placement . Assessment and Plan Disease Oriented Problem List: (1) Congestive heart failure Comment: Patient has had congestive heart failure since the . Etiology of the congestive heart failure is unclear. Patient does have valvular heart disease with significant dilated right and left atria. No known history of severe ischemic disease. Echo shows OK EF. . . (2) Pleural effusion, right Comment: Patient has recurrent pleural effusion probably secondary to his congestive heart failure. Has required at least 4 thoracenteses since March 2016. Currently with right chest tube in place. Pulmonary has suggested pleurodesis -- not felt to be a candidate for surgical pleurodesis; will try talc pleurodesis if stable enough to go to interventional radiology. . (3) Chronic atrial fibrillation Comment: Patient has had atrial fibrillation as long as he can remember as an adult . (4) Pneumothorax (5) COPD (chronic obstructive pulmonary disease) Comment: Patient was a long-time smoker. Has been on 2 L a minute of nasal cannula oxygen at home . (6) Acute respiratory failure with hypoxia and hypercapnia Comment: Patient required BiPAP on arrival in the emergency department. Respiratory insufficiency was secondary to his underlying COPD and to his congestive heart failure with large pleural effusion. Respiratory status waxing and waning and still on/off Bipap. . . (7) Tricuspid regurgitation Comment: Tricuspid regurgitation rated as severe per echocardiogram . (8) Mitral regurgitation Comment: Mitral regurgitation rated as mild to moderate on echocardiogram . (9) Pulmonary artery hypertension Comment: Pulmonary artery peak pressure estimated at 85 mmHg on echocardiogram . (10) Macrocytosis Comment: Patient with long history of alcohol abuse. Hemoglobin is normal but there still may be underlying B-12 or folate deficiency. . (11) Stroke Comment: CT imaging shows a stroke. Daughter thinks this happened last summer. Only known sequellae is some difficulty finding words. . (12) Hypoalbuminemia Symptom Scale: (1) Pain 0-10 Scale: 0 Comment: Per daughter, patient had no prehospitalization pain syndromes. Possible discomfort here in hospital may be attributed to Vital catheter; wrist restraints; oxygen delivery mechanism; vascular access; chest tube; prolonged bedbound status. . (2) Confusion 0-10 Scale: Unable to quantify Comment: Patient reportedly is cognitively intact normally. Intermittent confusion here in the hospital is probably a multifactorial delirium. Patient can get quite agitated/confused and threaten his own safety. Daughter is angry at staff for using any sedating medications. . (3) Dyspnea 0-10 Scale: Unable to quantify Comment: Patient's dyspnea is probably secondary to a combination of his underlying COPD; congestive heart failure; right pleural effusion. Improving.. . Pertinent Non-Medical Issues Psychosocial: Patient's primary psychosocial support comes from his daughter Raissa Duncan--who lives a few blocks from the patient. There is also a son who lives in [place] but had not seen the patient for about 5 years until his visit on 10-11 to 10/13/16. Son--Anselmo Duncan. Spiritual: Patient comes from the [employer] tradition. Anabaptist and spirituality have not played an important role in his life. Legal: Daughter reports that there is documentation listing her as having legal/ financial power of assistant district attorney. She does not believe this includes healthcare decision-making. No known living will or written designation of health care surrogacy. Daughter has not brought in documentation. Ethical issues impacting care: Patient is currently incapacitated to make his own health care decisions. It is likely he will regain capacity. . Important Contacts * Anselmo Duncan (son) [phone] * Raissa Duncan (daughter) [phone] . Prognosis This is an 81-year-old male with a several decades history of congestive heart failure complicated by underlying COPD, history of alcohol abuse. Patient has been declining since March 2016 particularly with recurrent right pleural effusions. He has required 4 thoracenteses since that time. Patient is now mostly homebound. He does remain ambulatory with a walker. There is no known ischemic heart disease and failure may be primarily due to valvular heart disease. There is severe tricuspid regurgitation. Patient has shown some improvement since thoracentesis but 02 needs continue to vary greatly and he has intermittent delirium. There is a reasonable chance he will continue to improve well enough to survive the hospitalization. Based on his history of the last few months, long-term prognosis is not good. Life expectancy is probably in the order of months. Patient would certainly be eligible for hospice services at such time as his goals become mostly comfort oriented. . Code Status: Full Code Plan == Code Status: Full code. Daughter confirms on that patient would want full code status to continue in spite of lengthy discussion regarding patient's likely status if he survived a resuscitation attempt. == Decision making : The patient is incapacitated to make his own health care decision at time of my visit, though based on prior experience he is expected to regain capacity to do so. The daughter reportedly has legal/financial power of assistant district attorney but there is no evidence that this includes healthcare decision- making. Under [place] statutes, while the patient is incapacitated, healthcare decision-making would fall equally to both of his children, even though the son lives in [place] and has not been very involved. On several occasions, the patient has said that he wants BOTH children to participate in health care decision making if he is unable to do so. == Goals of medical treatment: Patient has not completed a living will or specifically discussed goals of medical treatment with either son or daughter. Daughter has indicated that patient is rather selfish and self-centered and has stated that as long as he was comfortable and could watch TV he would probably want to stay on life support forever. There was no apparent agreement between son/daughter regarding goals. Son has left. Daughter is insisting on aggressive care going forward. == Pain: Possible causes of pain are addressed above. Patient had no prehospital pain syndromes. He currently has an order for intravenous morphine sulfate at 2 mg every 2 hours when necessary pain level 6-10. That appears to be effective. No further recommendations at this time. == Dyspnea: Dyspnea is likely secondary to patient's congestive heart failure ; right pleural effusion; pneumothorax; and underlying COPD. Dyspnea is improving especially after thoracentesis, but still has varying 02 needs and patient still going on/off BiPAP. As goals are considered aggressive until we hear otherwise, we'll minimize use of opiates or benzos in treating dyspnea. No further recommendations at this time. == Confusion: Per daughter, patient is normally quite cognitively sharp. 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 The confusion exhibited here in the hospital is probably a multifactorial delirium. Anticipate this will improve with treating his underlying illness. Agree with use of haloperidol if necessary to control an agitated delirium that risks his safety. Given his age , we may want to see if a lower dose such as 1 mg may be equally effective. Daughter feels strongly that the patient's confusion is the result of medications we are giving the patient. She wants sedating medications minimized. I have tried to explain the importance of keeping the patient safe and that he is likely to pull out his chest tube or IVs if we don't medicate him while confused. == Macrocytosis: Patient has a long history of alcohol abuse. B12 and folate levels are normal. == Please include son-- Anselmo Duncan ([phone]) -- as well as daughter in all major decision making. Both will need to give consent for talc pleurodesis. == Palliative care will continue to follow to assist with symptom management and to further clarify goals of medical treatment as the clinical course evolves. . Attestation To help prompt me to consider important information that might be impacting today's encounter and assessment, information from prior notes written by myself or my colleagues may have been "brought forward" into today's note. My signature on this note, however, is an attestation that I personally performed the exam, history, and/or decision-making noted today, and, unless otherwise indicated, the interactions with patient, family, and staff as well as the review of records all occurred today. I also attest that the listed assessment and stated plan reflect my best clinical judgment today based on the combination of historical information, prior notes, and today's exam/ interactions. When time spent is documented, it refers only to time spent today by the signer, or if indicated, combined time spent today by collaborating physician/nurse practitioner. . Vignesh Garcia MD Oct 14, 2016 20:24
[2016-10-15] VITALS (7 sets, daily range): BP systolic 116–142; BP diastolic 57–74; PULSE 57–81; RESP 16–22; TEMP 97.8–98.4; O2SAT 94–99
[2016-10-15] MEDS: CHLORHEXIDINE GLUCONATE 2 % 1 PACK (2 CLOTHS) TOP SCH (04:00)
[2016-10-15 04:43] LABS: INTERNATIONAL NORMALIZED RATIO 1.6 RATIO; PROTHROMBIN TIME - PATIENT 18.3 SEC (9.8-11.6)
[2016-10-15 05:02] LABS: BLOOD UREA NITROGEN 26 MG/DL (7-18); CHLORIDE 94 MEQ/L (98-107); GLOMERULAR FILTRATION RATE 68 ML/MIN (>89); POTASSIUM 3.9 MEQ/L (3.5-5.1); SODIUM (NA) 141 MEQ/L (136-145)
[2016-10-15 05:07] LABS: ANION GAP 2 MEQ/L (5-15); BICARBONATE GREATER THAN 45.0 MEQ/L (21.0-32.0)
[2016-10-15] MEDS: FUROSEMIDE 40 MG/4 ML VIAL IV PUSH SCH ×2 (05:35→22:19)
[2016-10-15] MEDS: POTASSIUM CHLORIDE 20 MEQ CONTROLLED RELEASE TAB PO SCH ×3 (05:35→22:19)
--- NOTE | 2016-10-15 05:52 | RADRPT ---
EXAM DATE/TIME: 10/15/2016 05:30 [facility] COMPARISON: CHEST SINGLE AP, October 13, 2016, 3:38. INDICATIONS : Shortness of breath. MEDICAL HISTORY : Chronic obstructive pulmonary disease. Congestive heart failure. SURGICAL HISTORY : None. ENCOUNTER: Subsequent ACUITY: 1 week PAIN SCORE: Non-responsive. LOCATION: Bilateral chest FINDINGS: The cardiac silhouette is enlarged. There is a right pigtail catheter in place. There is hazy density at the lungs bilaterally being worse on the left. CONCLUSION: 1. Cardiomegaly. 2. Haziness seen throughout the chest bilaterally likely representing a combination of effusions and some degree of parenchymal consolidation especially at the bases. There is a right chest tube in plac e. Dhruv Allen MD on October 15, 2016 at 5:49 Board Certified Radiologist. This report was verified electronically.
[2016-10-15] MEDS: RESP: ALBUTEROL 2.5 MG/IPRATROPIUM 0.5 MG NEB (SCH) NEB ×3 (07:19→15:36)
--- NOTE | 2016-10-15 07:21 | HHI.PR ---
Subjective Remarks Feels much better. With sob but improved. Currently weaned off BiPAP and satting well on 3L NC. Pain is controlled by meds. No n/v/d/c. No feevr or chills. Scant cough nonproductive. Objective Vitals Vital Signs Date Time Temp Pulse Resp B/P Pulse Ox O2 Delivery O2 Flow Rate FiO2 10/15/16 07:19 95 Nasal Cannula 3.00 10/15/16 03:00 99 Nasal Cannula 4.00 10/15/16 03:00 98.0 67 16 126/59 99 10/15/16 03:00 69 10/14/16 23:00 95 Nasal Cannula 4.00 10/14/16 23:00 77 10/14/16 23:00 97.9 64 18 139/63 95 10/14/16 20:00 98 Nasal Cannula 3.00 10/14/16 19:00 98.1 67 18 101/52 95 10/14/16 19:00 69 10/14/16 19:00 95 Nasal Cannula 4.00 10/14/16 16:38 98.8 80 18 117/56 96 10/14/16 16:38 80 10/14/16 16:00 96 Nasal Cannula 4.00 10/14/16 12:45 98 Partial Non-Rebreather 70 10/14/16 11:25 97 40 10/14/16 11:00 76 10/14/16 11:00 97.8 76 16 116/58 96 10/14/16 08:00 95 Bi-Pap 45 10/14/16 07:41 95 45 10/14/16 07:41 95 BiPAP 45 I/O 10/14/16 10/14/16 10/14/16 10/15/16 10/15/16 10/15/16 07:00 15:00 23:00 07:00 15:00 23:00 Intake Total 240 ml 300 ml 480 ml Output Total 650 ml 1140 ml 1000 ml Balance -410 ml -840 ml -520 ml Intake Oral 240 ml 300 ml 480 ml IV Total 0 ml 0 ml Output Urine Total 650 ml 1100 ml 1000 ml Chest Tube Drainage Total 0 ml 40 ml 0 ml # Bowel Movements 0 0 1 Result Diagram: 10/14/16 0546 10/15/16 0412 Imaging Last Impressions Chest X-Ray 10/15/16 0600 Signed Impressions: Service Date/Time: Saturday, October 15, 2016 05:30 - CONCLUSION: 1. Cardiomegaly. 2. Haziness seen throughout the chest bilaterally likely representing a combination of effusions and some degree of parenchymal consolidation especially at the bases. There is a right chest tube in place. Dhruv Allen MD Chest CT 10/09/16 1710 Signed Impressions: Service Date/Time: Sunday, October 09, 2016 21:35 - CONCLUSION: 1. Mild to moderate right pneumothorax with a right-sided chest tube in place. There is a mild right pleural effusion. 2. Moderate left pleural effusion. There is accompanying areas of atelectasis or consolidation seen throughout the left lower lobe. 3. Cardiomegaly. There is a mild pericardial effusion. The enlargement of the heart is secondary to enlargement of the chambers. 4. Suspected debris at the posterior proximal trachea. Dhruv Allen MD Head CT 10/06/16 0000 Signed Impressions: Service Date/Time: Thursday, October 06, 2016 16:27 - CONCLUSION: 1. No acute intracranial abnormalities. Stable small lacunar infarct on the right as above. Chaka Campos MD Cervical Spine CT 10/06/16 0000 Signed Impressions: Service Date/Time: Thursday, October 06, 2016 16:27 - CONCLUSION: 1. No acute findings in the cervical spine. Moderate degenerative disc disease but no significant canal stenosis. Large right pleural effusion noted at the right lung apex. Chaka Campos MD Objective Remarks GENERAL: Elderly chronically ill-appearing male HEENT: Head is normocephalic without any lesions or masses noted. Facial features are symmetric. Eyes: Extraocular muscles are intact. Conjunctivae were clear. NECK: Supple without any masses. Trachea midline no deviation. No JVD, CARDIAC: Regular rhythm, regular rate. S1/S2 are heard. No murmurs gallops or rubs. LUNGS: Diminished in the bases bilaterally. Mildly labored breathing on 4 L nasal cannula. Chest tube in place at right chest. ABDOMEN: Soft, nontender. Nondistended. Bowel sounds heard in all 4 quadrants. No organomegaly or masses. Negative rebound, negative guarding EXTREMITIES: Chronic venous stasis changes of the bilateral lower extremities with trace pedal edema. NEUROLOGY: More awake and alert x name only. Motor grossly normal. A/P Assessment and Plan Acute hypoxic/hypercapnic respiratory failure, due to right pleural effusion, acute diastolic congestive heart failure, chronic cor pulmonale/pulmonary hypertension. Was on BiPAP. Weaned off BiPAP and satting well on NC now. Will check ABG 10/16 AM or today if deteriorates Continue diuresis Continue captopril, atenolol, Lasix Echocardiogram indicates ejection fraction 5560 percent. Systolic function was normal. Moderate aortic valve regurgitation. Mild to moderate mitral valve regurgitation. Severely dilated left and right atrium. Tricuspid valve severe regurgitation. Small pericardial effusion. PA peak pressure 85 mmhg. Model Home [employer] Greeter consulted, Dr Manning following. Plan for pleurodesis with talk per pulm. Recurrent, Large right pleural effusion status post thoracentesis on October 06 with 3200 ml of clear yellow transudative fluid removed. Right pneumothorax Post thoracentesis-he has chest tube with persistent pneumothorax however the chest tube is draining significant amounts of pleural fluid and is not likely adequate to reinflate the lung. Pulmonology following for chest tube management. There has been no sign of decrease and pleural fluid output. The pneumothorax is anterior and not clearly seen on the AP chest x-rays however was seen on chest CT. It is not reinflating with the chest tube currently in place which is only draining pleural fluid. Patient cannot have pleurodesis with a pneumothorax per pulmonology. Patient will likely need CT surgery to evaluate for possible decortication. Dr. Jonathan wallis following. The patient's son and daughter feels that the patient would want continued aggressive care and they do requests everything be done for the patient. Transferred to [facility] for cardiothoracic surgery evaluation. Seen by Dr Styles CTS, he is not a candidate for surgical intervention, discusse dwith the patient son and daughter. Per pulm attempt to do pleurodesis by IR. IR consulted however the patient is on BioPAP and deconditioned and not possible for pleurodesis at thisa time. Attempt to wean off BiPBP yesterday not successful. PT also following. Daughter wants to talk with palliative care Acute metabolic encephalopathy with agitation Patient's daughter feels that the sedation is causing it however the patient became anxious and confused and was trying to get out of bed, pulling out chest tube. Soft restraints, low-dose Xanax and low-dose haldol IM as needed to prevent disruption of care, to use only a verbal attempts to calm the patient are unsuccessful. Chronic obstructive pulmonary disease with chronic CO2 retention. Continue O2 supplementation maintain O2 sats greater 92% Continue yuliana urbina Model [employer] Greeter following the patient Chronic atrial fibrillation Beta eileen continued Coumadin continued, pharmacy consulted for Coumadin management Mildly liver enzyme elevation. Improving Continue monitor DVT prophylaxis SCDs Patient on Coumadin INR CODE STATUS full code. Confirmed with patient's son Anselmo bedside and he discussed as well with his sister. Patient desires both his son and daughter to make joint decisions for him if he is incapacitated. Please see note and previous discussion from October [address] Sparks. Palliative care following. Guarded prognosis. Palliative care is following the patient. Daughter wants to talk with palliative care had a meeting 10/14. Discussed with ICU nurse, patient. Rebeca Grey MD Oct 15, 2016 07:21
[2016-10-15] MEDS: ATENOLOL 50 MG TAB PO SCH ×2 (09:18→22:19)
[2016-10-15] MEDS: DOCUSATE SODIUM 100 MG CAP PO SCH ×2 (09:18→21:00)
[2016-10-15] MEDS: FAMOTIDINE 20 MG/2 ML VIAL IV PUSH SCH ×2 (09:18→22:19)
[2016-10-15] MEDS: SODIUM CHLORIDE 0.9% FLUSH 5 ML FLUSH IV FLUSH SCH ×2 (09:19→22:20)
--- NOTE | 2016-10-15 12:26 | HHI.PR ---
Subjective Remarks Placed on N/C 3 L. Chest tube draining less. No fever.Will have pleurodesis with Talc CXR chest shows CHF changes.and no Pneumothorax Objective Vital Signs Date Time Temp Pulse Resp B/P Pulse Ox O2 Delivery O2 Flow Rate FiO2 10/15/16 11:00 69 10/15/16 11:00 98.4 69 22 123/58 97 10/15/16 11:00 97 Nasal Cannula 4.00 10/15/16 07:30 57 10/15/16 07:30 97.8 74 22 116/57 94 10/15/16 07:30 94 Nasal Cannula 4.00 10/15/16 07:19 95 Nasal Cannula 3.00 10/15/16 03:00 99 Nasal Cannula 4.00 10/15/16 03:00 98.0 67 16 126/59 99 10/15/16 03:00 69 10/14/16 23:00 95 Nasal Cannula 4.00 10/14/16 23:00 77 10/14/16 23:00 97.9 64 18 139/63 95 10/14/16 20:00 98 Nasal Cannula 3.00 10/14/16 19:00 98.1 67 18 101/52 95 10/14/16 19:00 69 10/14/16 19:00 95 Nasal Cannula 4.00 10/14/16 16:38 98.8 80 18 117/56 96 10/14/16 16:38 80 10/14/16 16:00 96 Nasal Cannula 4.00 10/14/16 12:45 98 Partial Non-Rebreather 70 I/O 10/14/16 10/14/16 10/14/16 10/15/16 10/15/16 10/15/16 07:00 15:00 23:00 07:00 15:00 23:00 Intake Total 240 ml 300 ml 480 ml Output Total 650 ml 1140 ml 1000 ml Balance -410 ml -840 ml -520 ml Intake Oral 240 ml 300 ml 480 ml IV Total 0 ml 0 ml Output Urine Total 650 ml 1100 ml 1000 ml Chest Tube Drainage Total 0 ml 40 ml 0 ml # Bowel Movements 0 0 1 Result Diagram: 10/14/16 0546 10/15/16 0412 Objective Remarks This elderly thinly built white male is pale and not dyspneic at rest. There is no clubbing or cyanosis or icterus or lymphadenopathy. HEENT: Head normocephalic. Pupils are reactive and equal. Tongue is dry. Throat is clear. Nasal mucosa is clear. NECK: Supple with mild venous distension at 45 degrees. Trachea midline. No thyroid enlargement. CHEST: Equal movements with decreased excursions. Breath sounds diminished at the bases with Crackles heard at lung bases HEART: The heart sounds are irregular S1-S2. No murmur. No S3. ABDOMEN: Soft, protuberant. No masses or organomegaly or tenderness. Bowel sounds active. EXTREMITIES: decreased peripheral pulses and reflexes are 1+ with no gross motor deficits.Edema 1 + NEUROLOGIC: No focal deficit RECTAL: Exam is deferred. SKIN: No lesions. Assessment and Plan Assessment and Plan IMPRESSION 1. Large right pleural effusion with right basilar atelectasis. 2. CHF with ASHD 3. Atrial fibrillation 4. Hypertension 5. COPD and possible basilar pneumonia. Plan : 1. Chest tube to Drainage. 2. D/C BiPAP 3. Nebs qid , Duoneb. 4. Haldol 1 mg tid prn. 5. Chest X ray in am 6. S/Q Heparin BID. 7. Will do Talc pleurodesis 8. Continue Lasix 40 mg IV bid 9. BMP in am Paulo Rooney MD Oct 15, 2016 12:26
[2016-10-15] MEDS ORDERED: WARFARIN SOD 2.5 MG TAB PO SCH (16:00)
[2016-10-15] MEDS ORDERED: SODIUM CHLOR 0.9% 1000 ML INJ 1,000 ML IV SCH (16:00)
[2016-10-15] MEDS: WARFARIN SOD 5 MG TAB PO SCH (16:35)
[2016-10-16] VITALS (25 sets, daily range): BP systolic 109–158; BP diastolic 56–77; PULSE 57–84; RESP 18–22; TEMP 97.5–98.5; O2SAT 61–100
[2016-10-16] MEDS: CHLORHEXIDINE GLUCONATE 2 % 1 PACK (2 CLOTHS) TOP SCH (04:00)
[2016-10-16] MEDS: POTASSIUM CHLORIDE 20 MEQ CONTROLLED RELEASE TAB PO SCH (06:00)
[2016-10-16 06:52] LABS: INTERNATIONAL NORMALIZED RATIO 1.5 RATIO; PROTHROMBIN TIME - PATIENT 17.3 SEC (9.8-11.6)
[2016-10-16 06:54] LABS: BICARBONATE 43.4 MEQ/L (21.0-32.0); POTASSIUM 3.7 MEQ/L (3.5-5.1)
--- NOTE | 2016-10-16 08:01 | HHI.PR ---
Subjective Remarks Overweight letter today. Still shortness of breath. No chest pain. Lump for thoracentesis today. No fever or chills overnight. Denies nausea, vomiting, diarrhea . Off BiPAP currently on 4 L nasal cannula saturating well. Objective Vitals Vital Signs Date Time Temp Pulse Resp B/P Pulse Ox O2 Delivery O2 Flow Rate FiO2 10/16/16 07:58 100 Nasal Cannula 3.00 10/16/16 04:00 71 10/16/16 04:00 98.1 71 20 115/59 98 10/16/16 04:00 98 Nasal Cannula 2.00 10/16/16 00:00 98 Nasal Cannula 2.00 10/16/16 00:00 81 10/16/16 00:00 98.0 77 20 132/66 98 10/15/16 20:08 97 Nasal Cannula 3.00 10/15/16 20:00 98.3 81 20 128/61 96 10/15/16 20:00 96 Nasal Cannula 2.00 10/15/16 20:00 81 10/15/16 15:00 98.1 79 20 142/74 95 10/15/16 15:00 79 10/15/16 15:00 95 Nasal Cannula 3.00 10/15/16 11:00 69 10/15/16 11:00 98.4 69 22 123/58 97 10/15/16 11:00 97 Nasal Cannula 4.00 I/O 10/15/16 10/15/16 10/15/16 10/16/16 10/16/16 10/16/16 07:00 15:00 23:00 07:00 15:00 23:00 Intake Total 480 ml 1000 ml 240 ml Output Total 1000 ml 825 ml 950 ml Balance -520 ml 175 ml -710 ml Intake Oral 480 ml 1000 ml 240 ml IV Total 0 ml Output Urine Total 1000 ml 825 ml 950 ml Chest Tube Drainage Total 0 ml 0 ml 0 ml # Bowel Movements 1 1 0 Result Diagram: 10/14/16 0546 10/16/16611 Imaging Last Impressions Chest X-Ray 10/15/16599 Signed Impressions: Service Date/Time: Saturday, October 15, 2016 05:30 - CONCLUSION: 1. Cardiomegaly. 2. Haziness seen throughout the chest bilaterally likely representing a combination of effusions and some degree of parenchymal consolidation especially at the bases. There is a right chest tube in place. Dhruv Allen MD Chest CT 10/09/16 1710 Signed Impressions: Service Date/Time: Sunday, October 09, 2016 21:35 - CONCLUSION: 1. Mild to moderate right pneumothorax with a right-sided chest tube in place. There is a mild right pleural effusion. 2. Moderate left pleural effusion. There is accompanying areas of atelectasis or consolidation seen throughout the left lower lobe. 3. Cardiomegaly. There is a mild pericardial effusion. The enlargement of the heart is secondary to enlargement of the chambers. 4. Suspected debris at the posterior proximal trachea. Dhruv Allen MD Head CT 10/06/16 0000 Signed Impressions: Service Date/Time: Thursday, October 06, 2016 16:27 - CONCLUSION: 1. No acute intracranial abnormalities. Stable small lacunar infarct on the right as above. Chaka Campos MD Cervical Spine CT 10/06/16 0000 Signed Impressions: Service Date/Time: Thursday, October 06, 2016 16:27 - CONCLUSION: 1. No acute findings in the cervical spine. Moderate degenerative disc disease but no significant canal stenosis. Large right pleural effusion noted at the right lung apex. Chaka Campos MD Objective Remarks GENERAL: Elderly chronically ill-appearing male HEENT: Head is normocephalic without any lesions or masses noted. Facial features are symmetric. Eyes: Extraocular muscles are intact. Conjunctivae were clear. NECK: Supple without any masses. Trachea midline no deviation. No JVD, CARDIAC: Regular rhythm, regular rate. S1/S2 are heard. No murmurs gallops or rubs. LUNGS: Diminished in the bases bilaterally. Mildly labored breathing on 4 L nasal cannula. Chest tube in place at right chest. ABDOMEN: Soft, nontender. Nondistended. Bowel sounds heard in all 4 quadrants. No organomegaly or masses. Negative rebound, negative guarding EXTREMITIES: Chronic venous stasis changes of the bilateral lower extremities with trace pedal edema. NEUROLOGY: More awake and alert x name only. Motor grossly normal. A/P Assessment and Plan Acute hypoxic/hypercapnic respiratory failure, due to right pleural effusion, acute diastolic congestive heart failure, chronic cor pulmonale/pulmonary hypertension. Was on BiPAP. Weaned off BiPAP and satting well on NC now. Will check ABG 10/16 AM or today if deteriorates Continue diuresis Continue captopril, atenolol, Lasix Echocardiogram indicates ejection fraction 5560 percent. Systolic function was normal. Moderate aortic valve regurgitation. Mild to moderate mitral valve regurgitation. Severely dilated left and right atrium. Tricuspid valve severe regurgitation. Small pericardial effusion. PA peak pressure 85 mmhg. Retail Shift Supervisor consulted, Dr Manning following. Plan for pleurodesis with talk 10/16. Recurrent, Large right pleural effusion status post thoracentesis on October 06 with 3200 ml of clear yellow transudative fluid removed. Right pneumothorax Post thoracentesis-he has chest tube with persistent pneumothorax however the chest tube is draining significant amounts of pleural fluid and is not likely adequate to reinflate the lung. Pulmonology following for chest tube management. There has been no sign of decrease and pleural fluid output. The pneumothorax is anterior and not clearly seen on the AP chest x-rays however was seen on chest CT. It is not reinflating with the chest tube currently in place which is only draining pleural fluid. Patient cannot have pleurodesis with a pneumothorax per pulmonology. Patient will likely need CT surgery to evaluate for possible decortication. Dr. Jonathan wallis following. The patient's son and daughter feels that the patient would want continued aggressive care and they do requests everything be done for the patient. Transferred to [facility] for cardiothoracic surgery evaluation. Seen by Dr Jensen PARRA, he is not a candidate for surgical intervention, discusse dwith the patient son and daughter. Per pulm attempt to do pleurodesis by IR. IR consulted however the patient is on BioPAP and deconditioned and not possible for pleurodesis at thisa time. Attempt to wean off BiPBP yesterday not successful. PT also following. Daughter wants to talk with palliative care Acute metabolic encephalopathy with agitation Patient's daughter feels that the sedation is causing it however the patient became anxious and confused and was trying to get out of bed, pulling out chest tube. Soft restraints, low-dose Xanax and low-dose haldol IM as needed to prevent disruption of care, to use only a verbal attempts to calm the patient are unsuccessful. Chronic obstructive pulmonary disease with chronic CO2 retention. Continue O2 supplementation maintain O2 sats greater 92% Continue yuliana urbina Retail Shift Supervisor following the patient Chronic atrial fibrillation Beta eileen continued Coumadin continued, pharmacy consulted for Coumadin management Mildly liver enzyme elevation. Improving Continue monitor DVT prophylaxis SCDs Patient on Coumadin INR CODE STATUS full code. Confirmed with patient's son Anselmo bedside and he discussed as well with his sister. Patient desires both his son and daughter to make joint decisions for him if he is incapacitated. Please see note and previous discussion from October [address] Sparks. Palliative care following. Guarded prognosis. Palliative care is following the patient. Daughter wants to talk with palliative care had a meeting 10/14. Discussed with ICU nurse, patient. Rebeca Grey MD Oct 16, 2016 08:01
[2016-10-16] MEDS ORDERED: TALC STERILE IPL ONE ×2 (10:00)
[2016-10-16] MEDS ORDERED: TALC STERILE IPL SCH ×2 (10:00)
[2016-10-16] MEDS ORDERED: SODIUM CHLOR 0.9% 1000 ML INJ 1,000 ML IV SCH (10:00)
[2016-10-16] MEDS ORDERED: [UNRECOGNIZED DRUG - OTHER] IPL ONE ×3 (10:00)
[2016-10-16] MEDS ORDERED: NS IPL SCH ×2 (10:00)
[2016-10-16] MEDS ORDERED: LIDOCAINE HCL 2% IPL ONE ×3 (10:00)
[2016-10-16] MEDS ORDERED: SODIUM CHLORIDE IPL ONE ×3 (10:00)
[2016-10-16] MEDS ORDERED: NS IPL ONE ×2 (10:00)
[2016-10-16] MEDS: WARFARIN SOD 5 MG TAB PO SCH (15:06)
[2016-10-16] MEDS ORDERED: WARFARIN SOD 4 MG TAB PO SCH (16:00)
--- NOTE | 2016-10-16 17:33 | HHI.PR ---
Subjective Remarks Placed on N/C 3 L. Went for talc pleurodesis. No fever.Diuresing well. CXR chest shows CHF changes.and no Pneumothorax Objective Vital Signs Date Time Temp Pulse Resp B/P Pulse Ox O2 Delivery O2 Flow Rate FiO2 10/16/16 13:00 67 18 147/71 95 10/16/16 12:00 73 18 147/70 94 10/16/16 11:30 68 18 137/56 96 10/16/16 11:15 72 18 137/58 94 10/16/16 10:35 97.5 61 18 129/62 95 10/16/16 07:58 100 Nasal Cannula 3.00 10/16/16 07:30 98.5 61 20 141/77 61 10/16/16 07:30 99 Room Air 10/16/16 07:30 61 10/16/16 04:00 71 10/16/16 04:00 98.1 71 20 115/59 98 10/16/16 04:00 98 Nasal Cannula 2.00 10/16/16 00:00 98 Nasal Cannula 2.00 10/16/16 00:00 81 10/16/16 00:00 98.0 77 20 132/66 98 10/15/16 20:08 97 Nasal Cannula 3.00 10/15/16 20:00 98.3 81 20 128/61 96 10/15/16 20:00 96 Nasal Cannula 2.00 10/15/16 20:00 81 I/O 10/15/16 10/15/16 10/15/16 10/16/16 10/16/16 10/16/16 07:00 15:00 23:00 07:00 15:00 23:00 Intake Total 480 ml 1000 ml 240 ml 420 ml Output Total 1000 ml 825 ml 950 ml 500 ml Balance -520 ml 175 ml -710 ml -80 ml Intake Oral 480 ml 1000 ml 240 ml 420 ml IV Total 0 ml Output Urine Total 1000 ml 825 ml 950 ml 500 ml Chest Tube Drainage Total 0 ml 0 ml 0 ml # Bowel Movements 1 1 0 0 Result Diagram: 10/14/16 0546 10/16/16 0612 Objective Remarks This elderly thinly built white male is pale and not dyspneic at rest. There is no clubbing or cyanosis or icterus or lymphadenopathy. HEENT: Head normocephalic. Pupils are reactive and equal. Tongue is dry. Throat is clear. Nasal mucosa is clear. NECK: Supple with mild venous distension .Trachea midline. No thyroid enlargement. CHEST: Equal movements with decreased excursions. Breath sounds diminished at the bases with Crackles heard at lung bases HEART: The heart sounds are irregular S1-S2. No murmur. No S3. ABDOMEN: Soft, protuberant. No masses or organomegaly or tenderness. Bowel sounds active. EXTREMITIES: decreased peripheral pulses and reflexes are 1+ with no gross motor deficits.Edema 1 + NEUROLOGIC: No focal deficit RECTAL: Exam is deferred. SKIN: No lesions. Assessment and Plan Assessment and Plan IMPRESSION 1. Large right pleural effusion with right basilar atelectasis. 2. CHF with ASHD 3. Atrial fibrillation 4. Hypertension 5. COPD and possible basilar pneumonia. Plan : 1. Chest tube to Drainage. 2. D/C Chest tube if not draining. 3. Nebs qid , Duoneb. 4. Haldol 1 mg tid prn. 5. Chest X ray in am 6. S/Q Heparin BID. 7. Talc pleurodesis today. 8. Continue Lasix 40 mg IV bid 9. CBC, BMP in am Paulo Rooney MD Oct 16, 2016 17:33
[2016-10-16] MEDS: POTASSIUM CL 40 MEQ/30 ML LIQ UDC PO SCH (20:34)
[2016-10-16] MEDS: FAMOTIDINE 20 MG/2 ML VIAL IV PUSH SCH (20:34)
[2016-10-16] MEDS: FUROSEMIDE 40 MG/4 ML VIAL IV PUSH SCH (20:35)
[2016-10-16] MEDS: SODIUM CHLORIDE 0.9% FLUSH 5 ML FLUSH IV FLUSH SCH (20:36)
[2016-10-16] MEDS: DOCUSATE SODIUM 100 MG CAP PO SCH (20:36)
[2016-10-16] MEDS: ATENOLOL 50 MG TAB PO SCH (21:00)
[2016-10-17] VITALS (26 sets, daily range): BP systolic 109–142; BP diastolic 55–63; PULSE 66–95; RESP 20–29; TEMP 97.8–99.3; O2SAT 92–96
[2016-10-17] MEDS: CHLORHEXIDINE GLUCONATE 2 % 1 PACK (2 CLOTHS) TOP SCH (04:00)
[2016-10-17 06:43] LABS: INTERNATIONAL NORMALIZED RATIO 1.7 RATIO; PROTHROMBIN TIME - PATIENT 19.5 SEC (9.8-11.6)
[2016-10-17] MEDS ORDERED: CALCIUM CARBONATE 500 MG CHEWABLE TAB CHEW ONE (07:45)
[2016-10-17] MEDS: POTASSIUM CL 40 MEQ/30 ML LIQ UDC PO SCH ×2 (10:13→20:59)
[2016-10-17] MEDS: FUROSEMIDE 40 MG/4 ML VIAL IV PUSH SCH ×2 (10:14→20:59)
[2016-10-17] MEDS: DOCUSATE SODIUM 100 MG CAP PO SCH ×2 (10:14→21:00)
[2016-10-17] MEDS: FAMOTIDINE 20 MG/2 ML VIAL IV PUSH SCH ×2 (10:14→21:00)
[2016-10-17] MEDS: ATENOLOL 50 MG TAB PO SCH ×2 (10:14→21:00)
[2016-10-17] MEDS: SODIUM CHLORIDE 0.9% FLUSH 5 ML FLUSH IV FLUSH SCH ×2 (10:15→20:59)
--- NOTE | 2016-10-17 10:33 | HHI.PR ---
Subjective Remarks Patient in bed, appears in nad. He is more awake and alert. No n/v/d/c. Denies fever or chills. Poor insight. Objective Vitals Vital Signs Date Time Temp Pulse Resp B/P Pulse Ox O2 Delivery O2 Flow Rate FiO2 10/17/16 06:00 80 10/17/16 05:00 79 10/17/16 04:00 95 Nasal Cannula 2.00 10/17/16 04:00 98.8 75 20 121/57 94 10/17/16 04:00 80 10/17/16 03:00 79 10/17/16 02:00 84 10/17/16 01:00 77 10/17/16 00:00 98.8 78 22 109/55 94 10/17/16 00:00 94 Nasal Cannula 2.00 10/17/16 00:00 95 10/16/16 23:00 81 10/16/16 22:00 84 10/16/16 21:00 73 10/16/16 20:37 96 Nasal Cannula 2.00 10/16/16 20:00 98.2 80 22 157/71 96 10/16/16 20:00 78 10/16/16 19:00 73 10/16/16 18:00 70 10/16/16 17:00 70 10/16/16 16:00 74 10/16/16 15:10 96 Nasal Cannula 2.00 10/16/16 15:10 98.4 57 22 158/65 96 10/16/16 15:10 57 10/16/16 15:00 65 10/16/16 14:00 71 10/16/16 13:00 67 18 147/71 95 10/16/16 13:00 65 10/16/16 12:00 73 10/16/16 12:00 73 18 147/70 94 10/16/16 11:30 68 18 137/56 96 10/16/16 11:15 72 18 137/58 94 10/16/16 11:00 64 10/16/16 10:35 97.5 61 18 129/62 95 I/O 10/16/16 10/16/16 10/16/16 10/17/16 10/17/16 10/17/16 07:00 15:00 23:00 07:00 15:00 23:00 Intake Total 240 ml 420 ml 240 ml Output Total 950 ml 500 ml 750 ml Balance -710 ml -80 ml -510 ml Intake Oral 240 ml 420 ml 240 ml Output Urine Total 950 ml 500 ml 750 ml Chest Tube Drainage Total 0 ml # Bowel Movements 0 0 Result Diagram: 10/14/16 0546 10/16/16 0612 Imaging Last Impressions Chest X-Ray 10/15/16 0600 Signed Impressions: Service Date/Time: Saturday, October 15, 2016 05:30 - CONCLUSION: 1. Cardiomegaly. 2. Haziness seen throughout the chest bilaterally likely representing a combination of effusions and some degree of parenchymal consolidation especially at the bases. There is a right chest tube in place. Dhruv Allen MD Chest CT 10/09/16 1710 Signed Impressions: Service Date/Time: Sunday, October 09, 2016 21:35 - CONCLUSION: 1. Mild to moderate right pneumothorax with a right-sided chest tube in place. There is a mild right pleural effusion. 2. Moderate left pleural effusion. There is accompanying areas of atelectasis or consolidation seen throughout the left lower lobe. 3. Cardiomegaly. There is a mild pericardial effusion. The enlargement of the heart is secondary to enlargement of the chambers. 4. Suspected debris at the posterior proximal trachea. Dhruv Allen MD Head CT 10/06/16 0000 Signed Impressions: Service Date/Time: Thursday, October 06, 2016 16:27 - CONCLUSION: 1. No acute intracranial abnormalities. Stable small lacunar infarct on the right as above. Chaka Campos MD Cervical Spine CT 10/06/16 0000 Signed Impressions: Service Date/Time: Thursday, October 06, 2016 16:27 - CONCLUSION: 1. No acute findings in the cervical spine. Moderate degenerative disc disease but no significant canal stenosis. Large right pleural effusion noted at the right lung apex. Chaka Campos MD Objective Remarks GENERAL: Elderly chronically ill-appearing male HEENT: Head is normocephalic without any lesions or masses noted. Facial features are symmetric. Eyes: Extraocular muscles are intact. Conjunctivae were clear. NECK: Supple without any masses. Trachea midline no deviation. No JVD, CARDIAC: Regular rhythm, regular rate. S1/S2 are heard. No murmurs gallops or rubs. LUNGS: Diminished in the bases bilaterally. Mildly labored breathing on 4 L nasal cannula. Chest tube in place at right chest. ABDOMEN: Soft, nontender. Nondistended. Bowel sounds heard in all 4 quadrants. No organomegaly or masses. Negative rebound, negative guarding EXTREMITIES: Chronic venous stasis changes of the bilateral lower extremities with trace pedal edema. NEUROLOGY: More awake and alert x name only. Motor grossly normal. A/P Assessment and Plan Acute hypoxic/hypercapnic respiratory failure, due to right pleural effusion, acute diastolic congestive heart failure, chronic cor pulmonale/pulmonary hypertension. Was on BiPAP. Weaned off BiPAP and satting well on NC now. Will check ABG 10/16 AM or today if deteriorates Continue diuresis Continue captopril, atenolol, Lasix Echocardiogram indicates ejection fraction 5560 percent. Systolic function was normal. Moderate aortic valve regurgitation. Mild to moderate mitral valve regurgitation. Severely dilated left and right atrium. Tricuspid valve severe regurgitation. Small pericardial effusion. PA peak pressure 85 mmhg. Tank Builder consulted, Dr Manning following. S/P pleurodesis with talk 10/16. - CT in place draining 40 cc (10/17) Recurrent, Large right pleural effusion status post thoracentesis on October 06 with 3200 ml of clear yellow transudative fluid removed. Right pneumothorax Post thoracentesis-he has chest tube with persistent pneumothorax however the chest tube is draining significant amounts of pleural fluid and is not likely adequate to reinflate the lung. Pulmonology following for chest tube management. There has been no sign of decrease and pleural fluid output. The pneumothorax is anterior and not clearly seen on the AP chest x-rays however was seen on chest CT. It is not reinflating with the chest tube currently in place which is only draining pleural fluid. Patient cannot have pleurodesis with a pneumothorax per pulmonology. Patient will likely need CT surgery to evaluate for possible decortication. Dr. Jonathan wallis following. The patient's son and daughter feels that the patient would want continued aggressive care and they do requests everything be done for the patient. Transferred to [facility] for cardiothoracic surgery evaluation. Seen by Dr Jensen PARRA, he is not a candidate for surgical intervention, discusse dwith the patient son and daughter. Per pulm attempt to do pleurodesis by IR. IR consulted however the patient is on BioPAP and deconditioned and not possible for pleurodesis at thisa time. Attempt to wean off BiPBP yesterday not successful. PT also following. Daughter wants to talk with palliative care Acute metabolic encephalopathy with agitation Patient's daughter feels that the sedation is causing it however the patient became anxious and confused and was trying to get out of bed, pulling out chest tube. Soft restraints, low-dose Xanax and low-dose haldol IM as needed to prevent disruption of care, to use only a verbal attempts to calm the patient are unsuccessful. Chronic obstructive pulmonary disease with chronic CO2 retention. Continue O2 supplementation maintain O2 sats greater 92% Continue presleyo banner Tank Builder following the patient Chronic atrial fibrillation Beta eileen continued Coumadin continued, pharmacy consulted for Coumadin management Severe protein calorie malnutrition. Prealbumin of 9. Diet as tolerated added dietary supplement. Consult credit specialist. Start megace. Patient has more appetite and per nurse he is eating better. Mildly liver enzyme elevation. Improving Continue monitor DVT prophylaxis SCDs Patient on Coumadin INR CODE STATUS full code. Confirmed with patient's son Anselmo bedside and he discussed as well with his sister. Patient desires both his son and daughter to make joint decisions for him if he is incapacitated. Please see note and previous discussion from October [address] Sparks. Palliative care following. Guarded prognosis. Palliative care is following the patient. Daughter had a meeting with palliative care 10/14. Discussed with ICU nurse, patient. Rebeca Grey MD Oct 17, 2016 10:33
--- NOTE | 2016-10-17 13:12 | HHI.PR ---
Subjective Remarks Placed on N/C 3 L. Went for talc pleurodesis. Better today. Chest tube drained little. CXR chest shows CHF changes.and no Pneumothorax Objective Vital Signs Date Time Temp Pulse Resp B/P Pulse Ox O2 Delivery O2 Flow Rate FiO2 10/17/16 12:46 96 Nasal Cannula 2.00 10/17/16 06:00 80 10/17/16 05:00 79 10/17/16 04:00 95 Nasal Cannula 2.00 10/17/16 04:00 98.8 75 20 121/57 94 10/17/16 04:00 80 10/17/16 03:00 79 10/17/16 02:00 84 10/17/16 01:00 77 10/17/16 00:00 98.8 78 22 109/55 94 10/17/16 00:00 94 Nasal Cannula 2.00 10/17/16 00:00 95 10/16/16 23:00 81 10/16/16 22:00 84 10/16/16 21:00 73 10/16/16 20:37 96 Nasal Cannula 2.00 10/16/16 20:00 98.2 80 22 157/71 96 10/16/16 20:00 78 10/16/16 19:00 73 10/16/16 18:00 70 10/16/16 17:00 70 10/16/16 16:00 74 10/16/16 15:10 96 Nasal Cannula 2.00 10/16/16 15:10 98.4 57 22 158/65 96 10/16/16 15:10 57 10/16/16 15:00 65 10/16/16 14:00 71 I/O 10/16/16 10/16/16 10/16/16 10/17/16 10/17/16 10/17/16 07:00 15:00 23:00 07:00 15:00 23:00 Intake Total 240 ml 420 ml 240 ml Output Total 950 ml 500 ml 750 ml Balance -710 ml -80 ml -510 ml Intake Oral 240 ml 420 ml 240 ml Output Urine Total 950 ml 500 ml 750 ml Chest Tube Drainage Total 0 ml # Bowel Movements 0 0 Result Diagram: 10/14/16 0546 10/16/16 0612 Objective Remarks This elderly thinly built white male is pale and not dyspneic at rest. There is no clubbing or cyanosis or icterus or lymphadenopathy. HEENT: Head normocephalic. Pupils are reactive and equal. Tongue is moist Throat is clear. Nasal mucosa is clear. NECK: Supple with mild venous distension .Trachea midline. No thyroid enlargement. CHEST: Equal movements with decreased excursions. Breath sounds diminished at the bases with Crackles heard at lung bases. HEART: The heart sounds are irregular S1-S2. No murmur. No S3. ABDOMEN: Soft, protuberant. No masses or organomegaly or tenderness. Bowel sounds active. EXTREMITIES: decreased peripheral pulses and reflexes are 1+ with no gross motor deficits.No Edema NEUROLOGIC: No focal deficit RECTAL: Exam is deferred. SKIN: No lesions. Assessment and Plan Assessment and Plan IMPRESSION 1. Large right pleural effusion with right basilar atelectasis. 2. CHF with ASHD 3. Atrial fibrillation 4. Hypertension 5. COPD and possible basilar pneumonia. Plan : 1. Chest tube out per radiology 2. Chest X ray in am 3. Nebs qid , Duoneb. 4. D/C Haldol . 5. Transfer to rehab 6. S/Q Heparin BID. 7. O2 at 2 L. 8. Change Lasix to 40 mg po bid 9. BMP in am Paulo Rooney MD Oct 17, 2016 13:12
[2016-10-17] MEDS ORDERED: WARFARIN SOD 4 MG TAB PO SCH (16:00)
[2016-10-17] MEDS: WARFARIN SOD 5 MG TAB PO SCH (16:59)
[2016-10-18] VITALS (26 sets, daily range): BP systolic 110–146; BP diastolic 54–91; PULSE 57–82; RESP 18–24; TEMP 97.5–99; O2SAT 92–98
[2016-10-18] MEDS: CHLORHEXIDINE GLUCONATE 2 % 1 PACK (2 CLOTHS) TOP SCH (04:00)
[2016-10-18 04:55] LABS: AUTOMATED NEUTROPHIL # 8.4 TH/MM3 (1.8-7.7); BASOPHIL % 0.4 % (0.0-2.0); EOSINOPHIL # 0.2 TH/MM3 (0-0.4); EOSINOPHIL % 1.7 % (0.0-4.0); HEMATOCRIT 37.8 % (39.0-51.0); HEMO FLAGS DIFF FINAL; LYMPH % 10.9 % (9.0-44.0); LYMPHOCYTE # 1.2 TH/MM3 (1.0-4.8); MEAN CELL VOLUME 99.7 FL (80.0-100.0); MEAN CORPUSCULAR HEMOGLOBIN 33.2 PG (27.0-34.0); MEAN CORPUSCULAR HGB CONC 33.3 % (32.0-36.0); PLATELET COUNT 192 TH/MM3 (150-450); RED BLOOD COUNT 3.79 MIL/MM3 (4.50-5.90); RED CELL DISTRIBUTION WIDTH 14.7 % (11.6-17.2)
[2016-10-18 05:05] LABS: INTERNATIONAL NORMALIZED RATIO 2.2 RATIO; PROTHROMBIN TIME - PATIENT 25.4 SEC (9.8-11.6)
[2016-10-18 05:14] LABS: BICARBONATE 40.4 MEQ/L (21.0-32.0); POTASSIUM 4.2 MEQ/L (3.5-5.1)
--- NOTE | 2016-10-18 06:03 | RADRPT ---
EXAM DATE/TIME: 10/18/2016 05:16 [place] COMPARISON: CHEST SINGLE AP, October 15, 2016, 5:30. INDICATIONS : Shortness of breath. MEDICAL HISTORY : Chronic obstructive pulmonary disease. Congestive heart failure. SURGICAL HISTORY : None. ENCOUNTER: Subsequent ACUITY: 1 week PAIN SCORE: Non-responsive. LOCATION: Bilateral chest FINDINGS: There is marked enlargement of the cardiac/pericardial silhouette, bilateral effusions and consolidat ion in the lower lobes. This is stable. Right-sided chest tube is present. Mild degenerative changes of the spine. CONCLUSION: No significant change has occurred. Don Soto MD on October 18, 2016 at 6:01 Board Certified Radiologist. This report was verified electronically.
[2016-10-18] MEDS ORDERED: ALPR.25 PO (09:02)
--- NOTE | 2016-10-18 09:03 | HHI.DS ---
Discharge Summary Admission Date Oct 06, 2016 at 16:10 Discharge Date: Oct 20, 2016 Admitting Diagnosis Hypoxic respiratory failure secondary to right pleural effusion (1) Acute respiratory failure with hypoxia and hypercapnia ICD Code: J96.01 Diagnosis: Principal (2) Pericardial effusion ICD Code: I31.3 Diagnosis: Principal (3) Hypertension ICD Code: I10 Diagnosis: Secondary (4) Cellulitis of right lower extremity ICD Code: L03.115 Diagnosis: Principal (5) COPD (chronic obstructive pulmonary disease) ICD Code: J44.9 Diagnosis: Secondary (6) Hypernatremia ICD Code: E87.0 Diagnosis: Secondary (7) Pulmonary artery hypertension ICD Code: I27.2 Diagnosis: Principal (8) Elevated liver enzymes ICD Code: R74.8 Diagnosis: Secondary (9) Pleural effusion, right ICD Code: J90 Diagnosis: Secondary Procedures none Brief History - From Admission 81yo M with PMH of afib on coumadin, COPD on home O2, ?CHF brought in by [facility] initially for fall and generalized weakness. When they arrived, he looked tachypneic and saturating in the mid 80s so they gave him 1 duoneb with improvement. Pt saturating in the mid 80s with RR at 40 breaths per minute initially and placed on 6L NC with improvement of O2 sat to 94%. Pt placed on BIPAP machine with minimal improvement of RR.CXR - large pleural effussion on Right CBC/BMP: 10/18/16 0405 10/18/16 0405 Significant Findings Laboratory Tests Test 10/16/16 10/17/16 10/18/16 06:12 06:14 04:05 Prothrombin Time 17.3 SEC 19.5 SEC 25.4 SEC (9.8-11.6) (9.8-11.6) (9.8-11.6) Chloride Level 95 MEQ/L (98-107) Carbon Dioxide Level 43.4 MEQ/L 40.4 MEQ/L (21.0-32.0) (21.0-32.0) Anion Gap 4 MEQ/L (5-15) 4 MEQ/L (5-15) Blood Urea Nitrogen 24 MG/DL (7-18) 22 MG/DL (7-18) Estimat Glomerular Filtration 71 ML/MIN (>89) 77 ML/MIN (>89) Rate Calcium Level 8.4 MG/DL 8.4 MG/DL (8.5-10.1) (8.5-10.1) Red Blood Count 3.79 MIL/MM3 (4.50-5.90) Hemoglobin 12.6 GM/DL (13.0-17.0) Hematocrit 37.8 % (39.0-51.0) Neutrophils (%) (Auto) 76.0 % (16.0-70.0) Monocytes (%) (Auto) 11.0 % (0.0-8.0) Neutrophils # (Auto) 8.4 TH/MM3 (1.8-7.7) Monocytes # (Auto) 1.2 TH/MM3 (0-0.9) Imaging Last Impressions Chest X-Ray 10/18/16 0600 Signed Impressions: Service Date/Time: Tuesday, October 18, 2016 05:16 - CONCLUSION: No significant change has occurred. Don Soto MD Tunnelled Chest Tube Removal 10/18/16 0000 Signed Impressions: Service Date/Time: Tuesday, October 18, 2016 00:00 - CONCLUSION: Uncomplicated chest tube removal. Dhruv Huang MD Pleurodesis 10/16/16 0000 Signed Impressions: Service Date/Time: Sunday, October 16, 2016 00:00 - CONCLUSION: Uncomplicated chemical pleurodesis as above. Dhruv Huang MD Chest CT 10/09/16 1710 Signed Impressions: Service Date/Time: Sunday, October 09, 2016 21:35 - CONCLUSION: 1. Mild to moderate right pneumothorax with a right-sided chest tube in place. There is a mild right pleural effusion. 2. Moderate left pleural effusion. There is accompanying areas of atelectasis or consolidation seen throughout the left lower lobe. 3. Cardiomegaly. There is a mild pericardial effusion. The enlargement of the heart is secondary to enlargement of the chambers. 4. Suspected debris at the posterior proximal trachea. Dhruv Allen MD Head CT 10/06/16 0000 Signed Impressions: Service Date/Time: Thursday, October 06, 2016 16:27 - CONCLUSION: 1. No acute intracranial abnormalities. Stable small lacunar infarct on the right as above. Chaka Campos MD Cervical Spine CT 10/06/16 0000 Signed Impressions: Service Date/Time: Thursday, October 06, 2016 16:27 - CONCLUSION: 1. No acute findings in the cervical spine. Moderate degenerative disc disease but no significant canal stenosis. Large right pleural effusion noted at the right lung apex. Chaka Campos MD PE at Discharge GENERAL: Elderly chronically ill-appearing male HEENT: Head is normocephalic without any lesions or masses noted. Facial features are symmetric. Eyes: Extraocular muscles are intact. Conjunctivae were clear. NECK: Supple without any masses. Trachea midline no deviation. No JVD, CARDIAC: Regular rhythm, regular rate. S1/S2 are heard. No murmurs gallops or rubs. LUNGS: Diminished in the bases bilaterally. Mildly labored breathing on 4 L nasal cannula. Chest tube in place at right chest. ABDOMEN: Soft, nontender. Nondistended. Bowel sounds heard in all 4 quadrants. No organomegaly or masses. Negative rebound, negative guarding EXTREMITIES: Chronic venous stasis changes of the bilateral lower extremities with trace pedal edema. NEUROLOGY: More awake and alert x name only. Motor grossly normal. Hospital Course Acute hypoxic/hypercapnic respiratory failure, due to right pleural effusion, acute diastolic congestive heart failure, chronic cor pulmonale/pulmonary hypertension. Was on BiPAP. Weaned off BiPAP and satting well on NC now. Continue diuresis Continue captopril, atenolol, Lasix Echocardiogram indicates ejection fraction 5560 percent. Systolic function was normal. Moderate aortic valve regurgitation. Mild to moderate mitral valve regurgitation. Severely dilated left and right atrium. Tricuspid valve severe regurgitation. Small pericardial effusion. PA peak pressure 85 mmhg. Enrollment Counselor consulted, Dr Manning following. S/P pleurodesis with talk 10/16. - CT in place draining 40 cc (10/17) - Plan to remove drain per IR Recurrent, Large right pleural effusion status post thoracentesis on October 06 with 3200 ml of clear yellow transudative fluid removed. Right pneumothorax Post thoracentesis-he has chest tube with persistent pneumothorax however the chest tube is draining significant amounts of pleural fluid and is not likely adequate to reinflate the lung. Pulmonology following for chest tube management. There has been no sign of decrease and pleural fluid output. The pneumothorax is anterior and not clearly seen on the AP chest x-rays however was seen on chest CT. It is not reinflating with the chest tube currently in place which is only draining pleural fluid. Patient cannot have pleurodesis with a pneumothorax per pulmonology. Patient will likely need CT surgery to evaluate for possible decortication. Dr. Jonathan wallis following. The patient's son and daughter feels that the patient would want continued aggressive care and they do requests everything be done for the patient. Transferred to [facility] for cardiothoracic surgery evaluation. Seen by Dr Jensen PARRA, he is not a candidate for surgical intervention, discusse dwith the patient son and daughter. Per pulm attempt to do pleurodesis by IR. IR consulted however the patient is on BioPAP and deconditioned and not possible for pleurodesis at thisa time. Attempt to wean off BiPBP yesterday not successful. PT also following. Daughter wants to talk with palliative care Acute metabolic encephalopathy with agitation Patient's daughter feels that the sedation is causing it however the patient became anxious and confused and was trying to get out of bed, pulling out chest tube. Soft restraints, low-dose Xanax and low-dose haldol IM as needed to prevent disruption of care, to use only a verbal attempts to calm the patient are unsuccessful. Chronic obstructive pulmonary disease with chronic CO2 retention. Continue O2 supplementation maintain O2 sats greater 92% Continue presleyo ciara Enrollment Counselor following the patient Chronic atrial fibrillation Beta eileen continued Coumadin continued, pharmacy consulted for Coumadin management Severe protein calorie malnutrition. Prealbumin of 9. Diet as tolerated added dietary supplement. Consult police liaison officer. Start megace. Patient has more appetite and per nurse he is eating better. Mildly liver enzyme elevation. Improving Continue monitor DVT prophylaxis SCDs Patient on Coumadin INR CODE STATUS full code. Discussed with nurse, patient, pulm service Dr Manning. Improved, chest tube was removed and he is sattign well on NC. Patient is feeding himself and is eating well. Plan for DC to SNF when arrangements done. [id number] signed. Improved. DC to SNF in fairly good condition to follow up as Op with PCP and consultants. Pt Condition on Discharge: Stable Discharge Disposition: Discharge to SNF Discharge Time: > 30 minutes Discharge Instructions DIET: Follow Instructions for: Heart Healthy Diet Activities you can perform: Regular-No Restrictions Follow up Referrals: PCP Follow-up - 3-5 Days Pulmonology - 2 Weeks SNF/HALF-WAY/HH with [facility] New Medications: Alprazolam (Xanax) 0.25 Mg Tab 0.25 MG PO Q6H PRN anxiety #15 TAB Continued Medications: Atenolol (Atenolol) 50 Mg Tab 50 MG PO BID Blood Pressure Management #14 Ref 0 TAB Captopril (Captopril) 50 Mg Tab 50 MG PO TIDAC Take 1 hour before meals. #90 Ref 0 TAB Ciclopirox (Nail Lacquer) Topical (Ciclopirox (Nail Lacquer) Topical) 8% Soln 1 APPLIC TOPICAL HS FUNGAL INFECTION #1 Ref 0 BOTTLE Furosemide (Furosemide) 20 Mg Tab 20 MG PO DAILY #30 Ref 0 TAB Ginkgo Biloba (Ginkgo Biloba) 120 Mg Tab Milk Thistle (Milk Thistle) 140 Mg Cap BID #2 [place]-3 Fatty Acids ([place] 3 1000 mg) 1 Cap Cap Potassium Chloride ER (Klor-Con 10) 10 Meq Tab 10 MEQ PO DAILY Electrolyte Replacement #30 Ref 0 TAB Warfarin (Warfarin) 5 Mg Tab 5 MG PO DAILY Blood Clot Prevention #30 Ref 0 TAB Rebeca Grey MD Oct 18, 2016 09:03
[2016-10-18] MEDS: FUROSEMIDE 40 MG/4 ML VIAL IV PUSH SCH (09:33)
[2016-10-18] MEDS: DOCUSATE SODIUM 100 MG CAP PO SCH ×2 (09:34→20:25)
[2016-10-18] MEDS: POTASSIUM CL 40 MEQ/30 ML LIQ UDC PO SCH ×2 (09:34→20:25)
[2016-10-18] MEDS: FAMOTIDINE 20 MG/2 ML VIAL IV PUSH SCH ×2 (09:34→20:25)
[2016-10-18] MEDS: ATENOLOL 50 MG TAB PO SCH ×2 (09:34→20:25)
[2016-10-18] MEDS: SODIUM CHLORIDE 0.9% FLUSH 5 ML FLUSH IV FLUSH SCH ×2 (09:38→20:25)
--- NOTE | 2016-10-18 12:44 | HHI.PR ---
Subjective Remarks Placed on N/C 2 L. Went for talc pleurodesis. Better today. Chest tube drainage minimal CXR chest shows CHF changes.and no Pneumothorax. Still weak. Objective Vital Signs Date Time Temp Pulse Resp B/P Pulse Ox O2 Delivery O2 Flow Rate FiO2 10/18/16 06:00 76 10/18/16 05:00 82 10/18/16 04:00 79 10/18/16 04:00 98.7 74 18 146/64 95 10/18/16 03:45 95 Nasal Cannula 2.00 10/18/16 03:00 79 10/18/16 02:00 77 10/18/16 01:00 78 10/18/16 00:00 97.5 80 20 125/55 94 10/18/16 00:00 80 10/18/16 00:00 94 Nasal Cannula 2.00 10/17/16 23:00 90 10/17/16 22:00 91 10/17/16 21:05 92 Nasal Cannula 2.00 10/17/16 21:00 93 10/17/16 20:00 97.8 80 20 142/63 94 10/17/16 20:00 94 Nasal Cannula 2.00 10/17/16 20:00 78 10/17/16 19:00 78 10/17/16 18:00 76 10/17/16 17:00 71 10/17/16 16:00 76 10/17/16 15:00 99.0 73 29 113/56 95 10/17/16 15:00 71 10/17/16 15:00 95 Nasal Cannula 2.00 10/17/16 14:00 68 10/17/16 13:00 69 10/17/16 12:46 96 Nasal Cannula 2.00 I/O 10/17/16 10/17/16 10/17/16 10/18/16 10/18/16 10/18/16 07:00 15:00 23:00 07:00 15:00 23:00 Intake Total 240 ml 720 ml 960 ml Output Total 750 ml 1150 ml 900 ml Balance -510 ml -430 ml 60 ml Intake Oral 240 ml 720 ml 960 ml Output Urine Total 750 ml 1150 ml 900 ml # Voids 1 # Bowel Movements 1 2 Result Diagram: 10/18/1640410/18/16404 Objective Remarks This elderly thinly built white male is pale and not dyspneic at rest. There is no clubbing or cyanosis or icterus or lymphadenopathy. HEENT: Head normocephalic. Pupils are reactive and equal. Tongue is moist Throat is clear. Nasal mucosa is clear. NECK: Supple with mild venous distension .Trachea midline. No thyroid enlargement. CHEST: Equal movements with decreased excursions. Breath sounds diminished at the bases with occ Crackles heard at lung bases. HEART: The heart sounds are irregular S1-S2. No murmur. No S3. ABDOMEN: Soft, protuberant. No masses or organomegaly or tenderness. Bowel sounds active. EXTREMITIES: decreased peripheral pulses and reflexes are 1+ ..No Edema NEUROLOGIC: No focal deficit RECTAL: Exam is deferred. SKIN: Scaly and has pigment in lower Extremities Assessment and Plan Assessment and Plan IMPRESSION 1. Large right pleural effusion with right basilar atelectasis. 2. CHF with ASHD 3. Atrial fibrillation 4. Hypertension 5. COPD and possible basilar pneumonia. Plan : 1. Chest tube out per radiology 2. IS at bedside q3h 3. Nebs qid , Duoneb. 4. D/C Haldol . 5. Transfer to rehab 6. S/Q Heparin BID. 7. O2 at 2 L. 8. Lasix to 40 mg po bid 9. Will F/U as OP in 2 weeks Paulo Rooney MD Oct 18, 2016 12:44
--- NOTE | 2016-10-18 13:41 | RADRPT ---
EXAM DATE/TIME: 10/16/2016 00:00 [facility] COMPARISON: No previous studies available for comparison. INDICATIONS : History of right pleural effusion. MEDICAL HISTORY : HTN,Hyperlipidemia, chronic atrialfib, congestive heart failure, skin cancer SURGICAL HISTORY : Left knee surgery 1960 ENCOUNTER: Initial ACUITY: 1 day PAIN SCORE: MEDICATION(S): 1.) TALC PLEURODESIS 45ML/RIGHT CHEST TUBE PROCEDURE : 1. Chemical pleurodesis. The risks, benefits, and alternatives to paracentesis were explained to the patient in detail, lay te david including the risk of bleeding and infection. Oral and written informed consent was obtained. The site was prepped in sterile fashion. Full sterile technique was used, including cap, mask, steri le gloves and gown and a large sterile sheet. Hand hygiene and 2% chlorhexidine and/or betadine/alco hol prep was utilized per protocol for cutaneous antisepsis. The skin and subcutaneous tissues were infiltrated with local anesthetic solution. The prescribed dose of Talc with Lidocaine was instilled through the previously placed chest tube and the chest tube was clamped. The patient was rotated into the anterior, posterior, right lateral and left lateral at 30 minute increments for a total of 2 hours. Upon completion of this the chest tube was unclamped and again placed to Pleur-evac suction. CONCLUSION: Uncomplicated chemical pleurodesis as above. Dhruv Huang MD on October 18, 2016 at 13:38 Board Certified Radiologist. This report was verified electronically.
--- NOTE | 2016-10-18 15:20 | HHI.PR ---
Subjective Remarks Seen earlier today. Patient however was pulling allen per nurse. He has a condom allen now. No n/v/d/c. Sleepy. No fever or chills. SOB improved. Objective Vitals Vital Signs Date Time Temp Pulse Resp B/P Pulse Ox O2 Delivery O2 Flow Rate FiO2 10/18/16 14:00 57 10/18/16 13:00 59 10/18/16 12:00 67 10/18/16 12:00 93 Nasal Cannula 2.00 10/18/16 11:00 63 10/18/16 11:00 98.3 63 22 110/54 98 10/18/16 10:00 75 10/18/16 09:00 79 10/18/16 08:45 92 Nasal Cannula 2.00 10/18/16 08:45 99.0 67 24 134/63 92 10/18/16 08:00 76 10/18/16 07:00 82 10/18/16 06:00 76 10/18/16 05:00 82 10/18/16 04:00 79 10/18/16 04:00 98.7 74 18 146/64 95 10/18/16 03:45 95 Nasal Cannula 2.00 10/18/16 03:00 79 10/18/16 02:00 77 10/18/16 01:00 78 10/18/16 00:00 97.5 80 20 125/55 94 10/18/16 00:00 80 10/18/16 00:00 94 Nasal Cannula 2.00 10/17/16 23:00 90 10/17/16 22:00 91 10/17/16 21:05 92 Nasal Cannula 2.00 10/17/16 21:00 93 10/17/16 20:00 97.8 80 20 142/63 94 10/17/16 20:00 94 Nasal Cannula 2.00 10/17/16 20:00 78 10/17/16 19:00 78 10/17/16 18:00 76 10/17/16 17:00 71 10/17/16 16:00 76 I/O 10/17/16 10/17/16 10/17/16 10/18/16 10/18/16 10/18/16 07:00 15:00 23:00 07:00 15:00 23:00 Intake Total 240 ml 720 ml 960 ml Output Total 750 ml 1150 ml 900 ml Balance -510 ml -430 ml 60 ml Intake Oral 240 ml 720 ml 960 ml Output Urine Total 750 ml 1150 ml 900 ml # Voids 1 # Bowel Movements 1 2 Result Diagram: 10/18/165 10/18/165 Imaging Last Impressions Chest X-Ray 10/18/16 0600 Signed Impressions: Service Date/Time: Tuesday, October 18, 2016 05:16 - CONCLUSION: No significant change has occurred. Don Soto MD Pleurodesis 10/16/16 0000 Signed Impressions: Service Date/Time: Sunday, October 16, 2016 00:00 - CONCLUSION: Uncomplicated chemical pleurodesis as above. Dhruv Huang MD Chest CT 10/09/16 1710 Signed Impressions: Service Date/Time: Sunday, October 09, 2016 21:35 - CONCLUSION: 1. Mild to moderate right pneumothorax with a right-sided chest tube in place. There is a mild right pleural effusion. 2. Moderate left pleural effusion. There is accompanying areas of atelectasis or consolidation seen throughout the left lower lobe. 3. Cardiomegaly. There is a mild pericardial effusion. The enlargement of the heart is secondary to enlargement of the chambers. 4. Suspected debris at the posterior proximal trachea. Dhruv Allen MD Head CT 10/06/16 0000 Signed Impressions: Service Date/Time: Thursday, October 06, 2016 16:27 - CONCLUSION: 1. No acute intracranial abnormalities. Stable small lacunar infarct on the right as above. Chaka Campos MD Cervical Spine CT 10/06/16 0000 Signed Impressions: Service Date/Time: Thursday, October 06, 2016 16:27 - CONCLUSION: 1. No acute findings in the cervical spine. Moderate degenerative disc disease but no significant canal stenosis. Large right pleural effusion noted at the right lung apex. Chaka Campos MD Objective Remarks GENERAL: Elderly chronically ill-appearing male HEENT: Head is normocephalic without any lesions or masses noted. Facial features are symmetric. Eyes: Extraocular muscles are intact. Conjunctivae were clear. NECK: Supple without any masses. Trachea midline no deviation. No JVD, CARDIAC: Regular rhythm, regular rate. S1/S2 are heard. No murmurs gallops or rubs. LUNGS: Diminished in the bases bilaterally. Mildly labored breathing on 4 L nasal cannula. Chest tube in place at right chest. ABDOMEN: Soft, nontender. Nondistended. Bowel sounds heard in all 4 quadrants. No organomegaly or masses. Negative rebound, negative guarding EXTREMITIES: Chronic venous stasis changes of the bilateral lower extremities with trace pedal edema. NEUROLOGY: More awake and alert x name only. Motor grossly normal. A/P Assessment and Plan Acute hypoxic/hypercapnic respiratory failure, due to right pleural effusion, acute diastolic congestive heart failure, chronic cor pulmonale/pulmonary hypertension. Was on BiPAP. Weaned off BiPAP and satting well on NC now. Continue diuresis Continue captopril, atenolol, Lasix Echocardiogram indicates ejection fraction 5560 percent. Systolic function was normal. Moderate aortic valve regurgitation. Mild to moderate mitral valve regurgitation. Severely dilated left and right atrium. Tricuspid valve severe regurgitation. Small pericardial effusion. PA peak pressure 85 mmhg. Poker In consulted, Dr Manning following. S/P pleurodesis with talk 10/16. - CT in place draining 40 cc (10/17) - Plan to remove drain per IR Recurrent, Large right pleural effusion status post thoracentesis on October 06 with 3200 ml of clear yellow transudative fluid removed. Right pneumothorax Post thoracentesis-he has chest tube with persistent pneumothorax however the chest tube is draining significant amounts of pleural fluid and is not likely adequate to reinflate the lung. Pulmonology following for chest tube management. There has been no sign of decrease and pleural fluid output. The pneumothorax is anterior and not clearly seen on the AP chest x-rays however was seen on chest CT. It is not reinflating with the chest tube currently in place which is only draining pleural fluid. Patient cannot have pleurodesis with a pneumothorax per pulmonology. Patient will likely need CT surgery to evaluate for possible decortication. Dr. Jonathan wallis following. The patient's son and daughter feels that the patient would want continued aggressive care and they do requests everything be done for the patient. Transferred to [facility] for cardiothoracic surgery evaluation. Seen by Dr Jensen PARRA, he is not a candidate for surgical intervention, discusse dwith the patient son and daughter. Per pulm attempt to do pleurodesis by IR. IR consulted however the patient is on BioPAP and deconditioned and not possible for pleurodesis at thisa time. Attempt to wean off BiPBP yesterday not successful. PT also following. Daughter wants to talk with palliative care Acute metabolic encephalopathy with agitation Patient's daughter feels that the sedation is causing it however the patient became anxious and confused and was trying to get out of bed, pulling out chest tube. Soft restraints, low-dose Xanax and low-dose haldol IM as needed to prevent disruption of care, to use only a verbal attempts to calm the patient are unsuccessful. Chronic obstructive pulmonary disease with chronic CO2 retention. Continue O2 supplementation maintain O2 sats greater 92% Continue yuliana urbina Poker In following the patient Chronic atrial fibrillation Beta eileen continued Coumadin continued, pharmacy consulted for Coumadin management Severe protein calorie malnutrition. Prealbumin of 9. Diet as tolerated added dietary supplement. Consult metal box maker. Start megace. Patient has more appetite and per nurse he is eating better. Mildly liver enzyme elevation. Improving Continue monitor DVT prophylaxis SCDs Patient on Coumadin INR CODE STATUS full code. Discussed with nurse, patient, pulm service Dr Manning. Discharge Planning POss dC to SNF tomorrow Rebeca Grey MD Oct 18, 2016 15:20
--- NOTE | 2016-10-18 16:28 | RADRPT ---
EXAM DATE/TIME: 10/18/2016 15:57 [facility] COMPARISON: CHEST SINGLE AP, October 18, 2016, 5:16. INDICATIONS : Shortness of breath MEDICAL HISTORY : Chronic obstructive pulmonary disease. Congestive heart failure. SURGICAL HISTORY : None. ENCOUNTER: Subsequent ACUITY: 1 week PAIN SCORE: Non-responsive. LOCATION: Bilateral chest FINDINGS: The small right chest tube has been removed. There is no pneumothorax. There continues to be some par enchymal infiltrates in the right lung base. The right lower lung infiltrate appears to be mildly inc reased. The left lung appears to be grossly clear. There continues to be diffuse enlargement of the h eart without significant change. There is evidence of pulmonary venous congestion. CONCLUSION: Small right chest tube has been removed. No pneumothorax. Mild increase in the right lower lung infil trate. Stable prominent cardiomegaly. Pradeep Rodriguez MD on October 18, 2016 at 16:25 Board Certified Radiologist. This report was verified electronically.
[2016-10-18] MEDS: WARFARIN SOD 5 MG TAB PO SCH (16:54)
--- NOTE | 2016-10-18 17:17 | RADRPT ---
EXAM DATE/TIME: 10/18/2016 00:00 [facility] COMPARISON: No previous studies available for comparison. INDICATIONS : pneumothorax DEVICE(S): 1.) Vaseline occlusive dressing PROCEDURE : Chest tube removal. Using aseptic technique the previously placed chest tube was easily removed in one piece and Vaseline gauze and sterile dressing was applied. Chest radiograph is to be obtained. CONCLUSION: Uncomplicated chest tube removal. Dhruv Huang MD on October 18, 2016 at 17:12 Board Certified Radiologist. This report was verified electronically.
[2016-10-18] MEDS: FUROSEMIDE 40 MG TAB PO SCH (18:00)
[2016-10-18] MEDS: ALPRAZolam 0.25 MG TAB PO PRN (21:26)
[2016-10-19] VITALS (25 sets, daily range): BP systolic 122–161; BP diastolic 65–85; PULSE 64–90; RESP 16–30; TEMP 97.1–99.2; O2SAT 94–98
[2016-10-19] MEDS: CHLORHEXIDINE GLUCONATE 2 % 1 PACK (2 CLOTHS) TOP SCH (00:48)
[2016-10-19 05:18] LABS: AUTOMATED NEUTROPHIL # 6.8 TH/MM3 (1.8-7.7); BASOPHIL % 0.5 % (0.0-2.0); EOSINOPHIL # 0.2 TH/MM3 (0-0.4); EOSINOPHIL % 2.5 % (0.0-4.0); HEMATOCRIT 37.7 % (39.0-51.0); HEMO FLAGS DIFF FINAL; LYMPH % 7.9 % (9.0-44.0); LYMPHOCYTE # 0.7 TH/MM3 (1.0-4.8); MEAN CORPUSCULAR HEMOGLOBIN 33.2 PG (27.0-34.0); MEAN CORPUSCULAR HGB CONC 33.2 % (32.0-36.0); MONO % 10.7 % (0.0-8.0); NEUT % 78.4 % (16.0-70.0); PLATELET COUNT 178 TH/MM3 (150-450); RED BLOOD COUNT 3.77 MIL/MM3 (4.50-5.90); RED CELL DISTRIBUTION WIDTH 14.8 % (11.6-17.2); WHITE BLOOD COUNT 8.7 TH/MM3 (4.0-11.0)
[2016-10-19 05:37] LABS: BICARBONATE 37.3 MEQ/L (21.0-32.0); MAGNESIUM 2.2 MG/DL (1.5-2.5); POTASSIUM 4.4 MEQ/L (3.5-5.1)
[2016-10-19 05:40] LABS: INTERNATIONAL NORMALIZED RATIO 2.7 RATIO; PROTHROMBIN TIME - PATIENT 31.7 SEC (9.8-11.6)
--- NOTE | 2016-10-19 07:30 | HHI.PR ---
Subjective Remarks Eating without problems. Presently on nasal cannula satting well. Still with shortness of breath less cough no fever or chills. Agitated. His prescriptions for 24 hours. Case management has been questioning respiratory come down as Objective Vitals Vital Signs Date Time Temp Pulse Resp B/P Pulse Ox O2 Delivery O2 Flow Rate FiO2 10/19/16 06:00 69 10/19/16 05:00 73 10/19/16 04:00 69 10/19/16 04:00 Nasal Cannula 3.00 10/19/16 04:00 97.3 68 16 139/65 94 10/19/16 03:00 74 10/19/16 02:00 73 10/19/16 01:00 65 10/19/16 00:00 97.1 69 16 122/69 95 10/19/16 00:00 70 10/19/16 00:00 Nasal Cannula 3.00 10/18/16 23:00 68 10/18/16 22:00 77 10/18/16 21:00 78 10/18/16 20:00 Nasal Cannula 3.00 10/18/16 20:00 76 10/18/16 20:00 97.6 77 19 128/91 93 10/18/16 19:00 80 10/18/16 18:01 75 10/18/16 17:00 70 10/18/16 16:00 66 10/18/16 15:00 93 Nasal Cannula 2.00 10/18/16 15:00 65 10/18/16 15:00 97.6 66 20 136/58 94 10/18/16 14:00 57 10/18/16 13:00 59 10/18/16 12:00 67 10/18/16 12:00 93 Nasal Cannula 2.00 10/18/16 11:00 63 10/18/16 11:00 98.3 63 22 110/54 98 10/18/16 10:00 75 10/18/16 09:00 79 10/18/16 08:45 92 Nasal Cannula 2.00 10/18/16 08:45 99.0 67 24 134/63 92 10/18/16 08:00 76 I/O 10/18/16 10/18/16 10/18/16 10/19/16 10/19/16 10/19/16 07:00 15:00 23:00 07:00 15:00 23:00 Intake Total 960 ml 480 ml 480 ml Output Total 900 ml 300 ml 500 ml Balance 60 ml 180 ml -20 ml Intake Oral 960 ml 480 ml 480 ml IV Total 0 ml Output Urine Total 900 ml 300 ml 500 ml # Voids 1 1 # Bowel Movements 2 0 0 Result Diagram: 10/19/16 0454 10/19/16 0434 Objective Remarks GENERAL: Elderly chronically ill-appearing male HEENT: Head is normocephalic without any lesions or masses noted. Facial features are symmetric. Eyes: Extraocular muscles are intact. Conjunctivae were clear. NECK: Supple without any masses. Trachea midline no deviation. No JVD, CARDIAC: Regular rhythm, regular rate. S1/S2 are heard. No murmurs gallops or rubs. LUNGS: Diminished in the bases bilaterally. Mildly labored breathing on 4 L nasal cannula. Chest tube in place at right chest. ABDOMEN: Soft, nontender. Nondistended. Bowel sounds heard in all 4 quadrants. No organomegaly or masses. Negative rebound, negative guarding EXTREMITIES: Chronic venous stasis changes of the bilateral lower extremities with trace pedal edema. NEUROLOGY: More awake and alert x name only. Motor grossly normal. A/P Assessment and Plan Acute hypoxic/hypercapnic respiratory failure, due to right pleural effusion, acute diastolic congestive heart failure, chronic cor pulmonale/pulmonary hypertension. Was on BiPAP. Weaned off BiPAP and satting well on NC now. Continue diuresis Continue captopril, atenolol, Lasix Echocardiogram indicates ejection fraction 5560 percent. Systolic function was normal. Moderate aortic valve regurgitation. Mild to moderate mitral valve regurgitation. Severely dilated left and right atrium. Tricuspid valve severe regurgitation. Small pericardial effusion. PA peak pressure 85 mmhg. Rhythmic Gymnastics Coach consulted, Dr Manning following. S/P pleurodesis with talk 10/16. - CT in place draining 40 cc (10/17) - Plan to remove drain per IR Recurrent, Large right pleural effusion status post thoracentesis on October 06 with 3200 ml of clear yellow transudative fluid removed. Right pneumothorax Post thoracentesis-he has chest tube with persistent pneumothorax however the chest tube is draining significant amounts of pleural fluid and is not likely adequate to reinflate the lung. Pulmonology following for chest tube management. There has been no sign of decrease and pleural fluid output. The pneumothorax is anterior and not clearly seen on the AP chest x-rays however was seen on chest CT. It is not reinflating with the chest tube currently in place which is only draining pleural fluid. Patient cannot have pleurodesis with a pneumothorax per pulmonology. Patient will likely need CT surgery to evaluate for possible decortication. Dr. Jonathan wallis following. The patient's son and daughter feels that the patient would want continued aggressive care and they do requests everything be done for the patient. Transferred to [facility] for cardiothoracic surgery evaluation. Seen by Dr Jensen PARRA, he is not a candidate for surgical intervention, discusse dwith the patient son and daughter. Per pulm attempt to do pleurodesis by IR. IR consulted however the patient is on BioPAP and deconditioned and not possible for pleurodesis at thisa time. Attempt to wean off BiPBP yesterday not successful. PT also following. Daughter wants to talk with palliative care Acute metabolic encephalopathy with agitation Patient's daughter feels that the sedation is causing it however the patient became anxious and confused and was trying to get out of bed, pulling out chest tube. Soft restraints, low-dose Xanax and low-dose haldol IM as needed to prevent disruption of care, to use only a verbal attempts to calm the patient are unsuccessful. Chronic obstructive pulmonary disease with chronic CO2 retention. Continue O2 supplementation maintain O2 sats greater 92% Continue yuliana urbina Rhythmic Gymnastics Coach following the patient Chronic atrial fibrillation Beta eileen continued Coumadin continued, pharmacy consulted for Coumadin management Severe protein calorie malnutrition. Prealbumin of 9. Diet as tolerated added dietary supplement. Consult lining maker. Start megace. Patient has more appetite and per nurse he is eating better. Mildly liver enzyme elevation. Improving Continue monitor DVT prophylaxis SCDs Patient on Coumadin INR CODE STATUS full code. Discussed with nurse, patient, pulm service Dr Manning. Improved, chest tube was removed and he is sattign well on NC. Patient is feeding himself and is eating well. Plan for DC to SNF when arrangements done. [id number] signed. Discharge Planning DC to SNF when arrangements done Rebeca Grey MD Oct 19, 2016 07:29
[2016-10-19] MEDS: SODIUM CHLORIDE 0.9% FLUSH 5 ML FLUSH IV FLUSH SCH ×2 (09:48→20:53)
[2016-10-19] MEDS: POTASSIUM CL 40 MEQ/30 ML LIQ UDC PO SCH ×2 (09:48→20:52)
[2016-10-19] MEDS: ATENOLOL 50 MG TAB PO SCH ×2 (09:48→20:52)
[2016-10-19] MEDS: FAMOTIDINE 20 MG/2 ML VIAL IV PUSH SCH ×2 (09:48→20:52)
[2016-10-19] MEDS: FUROSEMIDE 40 MG TAB PO SCH ×2 (09:48→18:46)
[2016-10-19] MEDS: DOCUSATE SODIUM 100 MG CAP PO SCH ×2 (09:48→20:52)
--- NOTE | 2016-10-19 14:57 | HHI.PR ---
Subjective Remarks Still on N/C 2 L. Went for talc pleurodesis. . Chest tube drainage minimal CXR chest shows CHF changes.and no Pneumothorax. Objective Vital Signs Date Time Temp Pulse Resp B/P Pulse Ox O2 Delivery O2 Flow Rate FiO2 10/19/16 14:00 66 10/19/16 13:00 79 10/19/16 12:00 84 10/19/16 11:00 99.2 75 20 161/71 98 10/19/16 11:00 69 10/19/16 11:00 Room Air 3.00 10/19/16 10:00 70 10/19/16 09:00 71 10/19/16 08:00 71 10/19/16 07:40 97 Nasal Cannula 3.00 10/19/16 07:00 98.2 67 24 161/71 98 10/19/16 07:00 68 10/19/16 07:00 Room Air 3.00 10/19/16 06:00 69 10/19/16 05:00 73 10/19/16 04:00 69 10/19/16 04:00 Nasal Cannula 3.00 10/19/16 04:00 97.3 68 16 139/65 94 10/19/16 03:00 74 10/19/16 02:00 73 10/19/16 01:00 65 10/19/16 00:00 97.1 69 16 122/69 95 10/19/16 00:00 70 10/19/16 00:00 Nasal Cannula 3.00 10/18/16 23:00 68 10/18/16 22:00 77 10/18/16 21:20 93 Nasal Cannula 3.00 10/18/16 21:00 78 10/18/16 20:00 Nasal Cannula 3.00 10/18/16 20:00 76 10/18/16 20:00 97.6 77 19 128/91 93 10/18/16 19:00 80 10/18/16 18:01 75 10/18/16 17:00 70 10/18/16 16:00 66 10/18/16 15:00 93 Nasal Cannula 2.00 10/18/16 15:00 65 10/18/16 15:00 97.6 66 20 136/58 94 I/O 10/18/16 10/18/16 10/18/16 10/19/16 10/19/16/25/17 07:00 15:00 23:00 07:00 15:00 23:00 Intake Total 960 ml 480 ml 480 ml Output Total 900 ml 300 ml 500 ml Balance 60 ml 180 ml -20 ml Intake Oral 960 ml 480 ml 480 ml IV Total 0 ml Output Urine Total 900 ml 300 ml 500 ml # Voids 1 1 # Bowel Movements 2 0 0 Result Diagram: 10/19/16 0454 10/19/16 0434 Objective Remarks This elderly thinly built white male is pale and not dyspneic at rest. There is no clubbing or cyanosis or icterus or lymphadenopathy. HEENT: Head normocephalic. Pupils are reactive and equal. Tongue is moist Throat is clear. Nasal mucosa is clear. NECK: Supple with mild venous distension .Trachea midline. No thyroid enlargement. CHEST: Equal movements with decreased excursions. Breath sounds diminished at the bases with Crackles heard at lung bases. HEART: The heart sounds are irregular S1-S2. No murmur. No S3. ABDOMEN: Soft, protuberant. No masses or organomegaly or tenderness. Bowel sounds active. EXTREMITIES: decreased peripheral pulses and reflexes are 1+ ..No Edema NEUROLOGIC: No focal deficit RECTAL: Exam is deferred. SKIN: Scaly and has pigment in lower Extremities Assessment and Plan Assessment and Plan IMPRESSION 1. Large right pleural effusion with right basilar atelectasis. 2. CHF with ASHD 3. Atrial fibrillation 4. Hypertension 5. COPD and possible basilar pneumonia. Plan : 1. Chest tube out per radiology 2. IS at bedside q3h 3. Nebs qid , Duoneb. 4. Rpt CXR 5. Transfer to rehab 6. S/Q Heparin BID. 7. O2 at 2 L. 8. Lasix to 40 mg po bid 9. Will F/U as OP in 2 weeks Paulo Rooney MD Oct 19, 2016 14:57
[2016-10-19] MEDS ORDERED: WARFARIN SOD 4 MG TAB PO ONE (16:00)
[2016-10-19] MEDS: ALPRAZolam 0.25 MG TAB PO PRN (23:01)
[2016-10-20] VITALS (13 sets, daily range): BP systolic 124–139; BP diastolic 60–82; PULSE 56–94; RESP 18–28; TEMP 97.2–98.3; O2SAT 94–98
[2016-10-20] MEDS: CHLORHEXIDINE GLUCONATE 2 % 1 PACK (2 CLOTHS) TOP SCH (03:22)
[2016-10-20 08:13] LABS: INTERNATIONAL NORMALIZED RATIO 2.4 RATIO; PROTHROMBIN TIME - PATIENT 28.1 SEC (9.8-11.6)
[2016-10-20] MEDS: ATENOLOL 50 MG TAB PO SCH (08:56)
[2016-10-20] MEDS: POTASSIUM CL 40 MEQ/30 ML LIQ UDC PO SCH (08:56)
[2016-10-20] MEDS: FUROSEMIDE 40 MG TAB PO SCH (08:57)
[2016-10-20] MEDS: DOCUSATE SODIUM 100 MG CAP PO SCH (08:57)
[2016-10-20] MEDS: SODIUM CHLORIDE 0.9% FLUSH 5 ML FLUSH IV FLUSH SCH (08:57)
[2016-10-20] MEDS: FAMOTIDINE 20 MG/2 ML VIAL IV PUSH SCH (08:57)
--- NOTE | 2016-10-20 11:40 | HHI.PR ---
Subjective Remarks Very pleasant, in bed, doesn't appear in distress. He is able to eat more and he is feeding himself. Says he feels less sob. Denies having any chest pain . No n/v/d/c. Objective Vitals Vital Signs Date Time Temp Pulse Resp B/P Pulse Ox O2 Delivery O2 Flow Rate FiO2 10/20/16 10:00 62 10/20/16 09:00 67 10/20/16 08:56 94 Nasal Cannula 3.00 10/20/16 08:00 73 10/20/16 07:15 76 10/20/16 07:15 95 Room Air 3.00 10/20/16 07:15 97.2 66 25 124/60 95 10/20/16 06:00 63 10/20/16 05:00 56 10/20/16 04:00 97 Room Air 3.00 10/20/16 04:00 65 10/20/16 04:00 98.0 67 28 130/60 97 10/20/16 03:00 63 10/20/16 02:00 65 10/20/16 01:00 66 10/20/16 00:00 98 Room Air 3.00 10/20/16 00:00 97.7 77 28 137/62 95 10/20/16 00:00 85 10/19/16 23:00 72 10/19/16 22:00 76 10/19/16 21:00 82 10/19/16 20:00 71 10/19/16 20:00 99.1 83 30 144/66 95 10/19/16 20:00 97 Room Air 3.00 10/19/16 19:00 79 10/19/16 18:00 75 10/19/16 17:00 77 10/19/16 16:00 72 10/19/16 15:00 99.2 75 20 161/71 98 10/19/16 15:00 Room Air 3.00 10/19/16 15:00 64 10/19/16 14:00 66 10/19/16 13:00 79 10/19/16 12:00 84 I/O 10/19/16 10/19/16 10/19/16 10/20/16 10/20/16 10/20/16 07:00 15:00 23:00 07:00 15:00 23:00 Intake Total 480 ml 1276 ml 240 ml Output Total 500 ml 300 ml Balance -20 ml 1276 ml -60 ml Intake Oral 480 ml 1276 ml 240 ml IV Total 0 ml Output Urine Total 500 ml 300 ml # Voids 3 1 # Bowel Movements 0 1 Result Diagram: 10/19/16 0454 10/19/16 0434 Imaging Last Impressions Chest X-Ray 10/18/16 0600 Signed Impressions: Service Date/Time: Tuesday, October 18, 2016 05:16 - CONCLUSION: No significant change has occurred. Don Soto MD Tunnelled Chest Tube Removal 10/18/16 0000 Signed Impressions: Service Date/Time: Tuesday, October 18, 2016 00:00 - CONCLUSION: Uncomplicated chest tube removal. Dhruv Huang MD Pleurodesis 10/16/16 0000 Signed Impressions: Service Date/Time: Sunday, October 16, 2016 00:00 - CONCLUSION: Uncomplicated chemical pleurodesis as above. Dhruv Huang MD Chest CT 10/09/16 1710 Signed Impressions: Service Date/Time: Sunday, October 09, 2016 21:35 - CONCLUSION: 1. Mild to moderate right pneumothorax with a right-sided chest tube in place. There is a mild right pleural effusion. 2. Moderate left pleural effusion. There is accompanying areas of atelectasis or consolidation seen throughout the left lower lobe. 3. Cardiomegaly. There is a mild pericardial effusion. The enlargement of the heart is secondary to enlargement of the chambers. 4. Suspected debris at the posterior proximal trachea. Dhruv Allen MD Head CT 10/06/16 0000 Signed Impressions: Service Date/Time: Thursday, October 06, 2016 16:27 - CONCLUSION: 1. No acute intracranial abnormalities. Stable small lacunar infarct on the right as above. Chaka Campos MD Cervical Spine CT 10/06/16 Signed Impressions: Service Date/Time: Thursday, October 06, 2016 16:27 - CONCLUSION: 1. No acute findings in the cervical spine. Moderate degenerative disc disease but no significant canal stenosis. Large right pleural effusion noted at the right lung apex. Chaka Campos MD Objective Remarks GENERAL: Elderly chronically ill-appearing male HEENT: Head is normocephalic without any lesions or masses noted. Facial features are symmetric. Eyes: Extraocular muscles are intact. Conjunctivae were clear. NECK: Supple without any masses. Trachea midline no deviation. No JVD, CARDIAC: Regular rhythm, regular rate. S1/S2 are heard. No murmurs gallops or rubs. LUNGS: Diminished in the bases bilaterally. Mildly labored breathing on 4 L nasal cannula. Chest tube in place at right chest. ABDOMEN: Soft, nontender. Nondistended. Bowel sounds heard in all 4 quadrants. No organomegaly or masses. Negative rebound, negative guarding EXTREMITIES: Chronic venous stasis changes of the bilateral lower extremities with trace pedal edema. NEUROLOGY: More awake and alert x name only. Motor grossly normal. A/P Assessment and Plan Acute hypoxic/hypercapnic respiratory failure, due to right pleural effusion, acute diastolic congestive heart failure, chronic cor pulmonale/pulmonary hypertension. Was on BiPAP. Weaned off BiPAP and satting well on NC now. Continue diuresis Continue captopril, atenolol, Lasix Echocardiogram indicates ejection fraction 5560 percent. Systolic function was normal. Moderate aortic valve regurgitation. Mild to moderate mitral valve regurgitation. Severely dilated left and right atrium. Tricuspid valve severe regurgitation. Small pericardial effusion. PA peak pressure 85 mmhg. Appeals Representative consulted, Dr Manning following. S/P pleurodesis with talk 10/16. - CT in place draining 40 cc (10/17) - Plan to remove drain per IR Recurrent, Large right pleural effusion status post thoracentesis on October 06 with 3200 ml of clear yellow transudative fluid removed. Right pneumothorax Post thoracentesis-he has chest tube with persistent pneumothorax however the chest tube is draining significant amounts of pleural fluid and is not likely adequate to reinflate the lung. Pulmonology following for chest tube management. There has been no sign of decrease and pleural fluid output. The pneumothorax is anterior and not clearly seen on the AP chest x-rays however was seen on chest CT. It is not reinflating with the chest tube currently in place which is only draining pleural fluid. Patient cannot have pleurodesis with a pneumothorax per pulmonology. Patient will likely need CT surgery to evaluate for possible decortication. Dr. Jonathan wallis following. The patient's son and daughter feels that the patient would want continued aggressive care and they do requests everything be done for the patient. Transferred to [facility] for cardiothoracic surgery evaluation. Seen by Dr Jensen CTS, he is not a candidate for surgical intervention, discusse dwith the patient son and daughter. Per pulm attempt to do pleurodesis by IR. IR consulted however the patient is on BioPAP and deconditioned and not possible for pleurodesis at thisa time. Attempt to wean off BiPBP yesterday not successful. PT also following. Daughter wants to talk with palliative care Acute metabolic encephalopathy with agitation Patient's daughter feels that the sedation is causing it however the patient became anxious and confused and was trying to get out of bed, pulling out chest tube. Soft restraints, low-dose Xanax and low-dose haldol IM as needed to prevent disruption of care, to use only a verbal attempts to calm the patient are unsuccessful. Chronic obstructive pulmonary disease with chronic CO2 retention. Continue O2 supplementation maintain O2 sats greater 92% Continue yuliana urbina Appeals Representative following the patient Chronic atrial fibrillation Beta eileen continued Coumadin continued, pharmacy consulted for Coumadin management Severe protein calorie malnutrition. Prealbumin of 9. Diet as tolerated added dietary supplement. Consult [facility] farmer. Start megace. Patient has more appetite and per nurse he is eating better. Mildly liver enzyme elevation. Improving Continue monitor DVT prophylaxis SCDs Patient on Coumadin INR CODE STATUS full code. Discussed with nurse, patient, pulm service Dr Manning. Improved, chest tube was removed and he is sattign well on NC. Patient is feeding himself and is eating well. Plan for DC to SNF when arrangements done. [id number] signed. Discharge Planning DC to SNF when arrangements done Rebeca Grey MD Oct 20, 2016 11:40
[2016-10-20] MEDS ORDERED: CALCIUM CARBONATE 500 MG CHEWABLE TAB CHEW SCH (11:45)
== END 2016-10-20 14:06 | DRG 291 ==
LOC: PHED 13:23 → PHEDA 16:10 → PHICU 22:32 → HCVR 10-12 21:37 → HCPC 10-15 17:20
PROVIDERS: ADMIT Hospitalist; ATTEND Hospitalist
PROC: 0W9930Z Drainage of Right Pleural Cavity with Drainage Device, Percutaneous Approach (ICD-10-PCS; principal; 2016-10-06)
PROC: 0W993ZZ Drainage of Right Pleural Cavity, Percutaneous Approach (ICD-10-PCS; 2016-10-06)
PROC: 5A09357 Assistance with Respiratory Ventilation, Less than 24 Consecutive Hours, Continuous Positive Airway Pressure (ICD-10-PCS; 2016-10-06)
PROC: 5A09457 Assistance with Respiratory Ventilation, 24-96 Consecutive Hours, Continuous Positive Airway Pressure (ICD-10-PCS; 2016-10-13)
PROC: 3E0L3GC Introduction of Other Therapeutic Substance into Pleural Cavity, Percutaneous Approach (ICD-10-PCS; 2016-10-16)
PROC: 0WP8X0Z Removal of Drainage Device from Chest Wall, External Approach (ICD-10-PCS; 2016-10-18)
DX: I11.0 Hypertensive heart disease with heart failure (principal); J96.02 Acute respiratory failure with hypercapnia; E43 Unspecified severe protein-calorie malnutrition; G93.41 Metabolic encephalopathy; J18.9 Pneumonia, unspecified organism; E87.0 Hyperosmolality and hypernatremia; J96.01 Acute respiratory failure with hypoxia; E87.2 Acidosis; J90 Pleural effusion, not elsewhere classified; J44.0 Chronic obstructive pulmonary disease with (acute) lower respiratory infection; I31.3 Pericardial effusion (noninflammatory); J95.811 Postprocedural pneumothorax; J98.11 Atelectasis; L03.115 Cellulitis of right lower limb; I50.33 Acute on chronic diastolic (congestive) heart failure; D69.6 Thrombocytopenia, unspecified; Z99.81 Dependence on supplemental oxygen; I27.2 Other secondary pulmonary hypertension; I48.2 Chronic atrial fibrillation; I27.81 Cor pulmonale (chronic); I25.10 Atherosclerotic heart disease of native coronary artery without angina pectoris; E78.5 Hyperlipidemia, unspecified; I87.8 Other specified disorders of veins; I08.3 Combined rheumatic disorders of mitral, aortic and tricuspid valves; I45.10 Unspecified right bundle-branch block; K80.20 Calculus of gallbladder without cholecystitis without obstruction; I69.928 Other speech and language deficits following unspecified cerebrovascular disease; D75.89 Other specified diseases of blood and blood-forming organs; I95.9 Hypotension, unspecified; F10.10 Alcohol abuse, uncomplicated; F12.90 Cannabis use, unspecified, uncomplicated; Z68.21 Body mass index [BMI] 21.0-21.9, adult; Z78.1 Physical restraint status; Z79.01 Long term (current) use of anticoagulants; Z85.828 Personal history of other malignant neoplasm of skin; Z87.891 Personal history of nicotine dependence
CPT/HCPCS: 32551; 32560; 36600; 70450; 71010; 71250; 72125; 76937; 80048; 80053; 80076; 81001; 82465; 82550; 82607; 82746; 82805; 83605; 83615; 83735; 83880; 83986; 84100; 84134; 84157; 84315; 84484; 85025; 85610; 85730; 87040; 87070; 87205; 87641; 93005; 93306; 94002; 94003; 94150; 94640; 94664; 96374; 96375; 99292; J1630; J1644; J1940; J2270; J2930

== ENCOUNTER 2016-11-06 21:52 | Emergency (ER) | payer MEDICARE, OTHER ==
[~2016-11-06 21:52] MED LIST changes: +ALPR.25 PO; -ATEN1TAB73 PO; -B COTAB6 PO; -CHEL50TA; +CICL8SOL TOPICAL; -DUONI NEB; -OMEG5CAP; -ROSU10 PO; -VITA10007 PO; -VITA400C5; -WARF-21 PO
[2016-11-06 22:06] VITALS: BP 150/67; PULSE 83; RESP 20; TEMP 97.8; O2SAT 95
--- NOTE | 2016-11-06 22:58 | PD ---
HPI . Low oxygen saturation Chief Complaint: Respiratory Symptoms Time Seen by Provider: 22:45 Travel History International Travel<30 days: No Contact w/Intl Traveler<30days: No Traveled to known affect area: No History of Present Illness HPI The patient was brought to us [facility] because he was found to have low saturations when they made their rounds tonight. They reported his sats in the 60s. EMS reports sats of 95% on their arrival. The patient is on chronic oxygen because of COPD. The patient has no complaints at this time. The patient's chart indicates some dementia. He is oriented only to person. Patient has had previous respiratory failure, large right pleural effusion and pulmonary hypertension. No further history is available from this patient at this time. PFSH Past Medical History Hx Anticoagulant Therapy: Yes (WARFARIN) Atrial Fibrillation: Yes Heart Rhythm Problems: Yes (AFIB) Cancer: No Cardiovascular Problems: Yes High Cholesterol: Yes Chemotherapy: No Congestive Heart Failure: Yes Cerebrovascular Accident: Yes Diabetes: No Diminished Hearing: No Endocrine: No Genitourinary: No Hypertension: Yes Immune Disorder: No Musculoskeletal: Yes (weakness) Neurologic: Yes (hx of stroke) Psychiatric: No Reproductive: No Respiratory: Yes (this admission chest tube right chest thorencentesis this vist) Past Surgical History Thoracic Surgery: Yes (THORENCENTESIS 10/06/16 ) Other Surgery: Yes Social History Alcohol Use: Yes (WINE, MIX DRINKS PER NIGHT APPROX 2-3 GLASSES A DAY) Tobacco Use: No Substance Use: Yes (MARIJAUNA US AT NIGHT) Allergies-Medications (Allergen,Severity, Reaction): Coded Allergies: No Known Allergies (Verified , 11/06/16) Reported Meds & Prescriptions Reported Meds & Active Scripts Active Xanax (Alprazolam) 0.25 Mg Tab 0.25 Mg PO Q6H PRN Reported Ciclopirox (Nail Lacquer) Topical 8% Soln 1 Applic TOPICAL HS Ginkgo Biloba 120 Mg Tab Bomont 3 1000 mg (Bomont-3 Fatty Acids) 1 Cap Cap Milk Thistle 140 Mg Cap BID Warfarin 5 Mg Tab 5 Mg PO DAILY Klor-Con 10 (Potassium Chloride) 10 Meq Tab 10 Meq PO DAILY Atenolol 50 Mg Tab 50 Mg PO BID Captopril 50 Mg Tab 50 Mg PO TIDAC Take 1 hour before meals. Furosemide 20 Mg Tab 20 Mg PO DAILY Review of Systems ROS Limitations: Poor Historian Physical Exam Narrative GENERAL: Elderly man who seems a bit agitated. SKIN: Warm and dry. HEAD: Atraumatic. Normocephalic. EYES: Pupils equal and round. Extraocular movements are intact. ENT: No nasal bleeding or discharge. Mucous membranes pink and moist. NECK: Trachea midline. Neck is supple. CARDIOVASCULAR: Regular rate and rhythm. Heart sounds are normal. RESPIRATORY: Patient is tachypneic. He is using accessory muscles. He has good air movement. GASTROINTESTINAL: Abdomen soft, non-tender, nondistended. MUSCULOSKELETAL: No obvious deformities. No edema. NEUROLOGICAL: Awake and alert. No obvious cranial nerve deficits. Motor grossly within normal limits. Normal speech. PSYCHIATRIC: Oriented to person only. Psychiatric evaluation is not possible at this time. He does seem agitated. Data Data Last Documented VS Vital Signs Date Time Temp Pulse Resp B/P Pulse Ox O2 Delivery O2 Flow Rate FiO2 11/06/16 23:38 84 23 129/60 96 Nasal Cannula 4 11/06/16 22:06 97.8 Orders Complete Blood Count With Diff (11/06/16 22:51) Comprehensive Metabolic Panel (11/06/16 22:51) B-Type Natriuretic Peptide (11/06/16 22:51) Magnesium (Mg) (11/06/16 22:51) Ckmb (Isoenzyme) Profile (11/06/16 22:51) Troponin I (11/06/16 22:51) Iv Access Insert/Monitor (11/06/16 22:51) Electrocardiogram (11/06/16 22:51) Ecg Monitoring (11/06/16 22:51) Oximetry (11/06/16 22:51) Oxygen Administration (11/06/16 22:51) Chest, Single Ap (11/06/16 22:51) Sodium Chloride 0.9% Flush (Ns Flush) (11/06/16 23:00) Lorazepam Inj (Ativan Inj) (11/06/16 23:00) Labs Laboratory Tests Test 11/06/16 23:23 White Blood Count 5.7 TH/MM3 Red Blood Count 3.44 MIL/MM3 Hemoglobin 11.5 GM/DL Hematocrit 34.7 % Mean Corpuscular Volume 100.7 FL Mean Corpuscular Hemoglobin 33.4 PG Mean Corpuscular Hemoglobin 33.1 % Concent Red Cell Distribution Width 15.8 % Platelet Count 132 TH/MM3 Mean Platelet Volume 8.1 FL Neutrophils (%) (Auto) 71.6 % Lymphocytes (%) (Auto) 13.5 % Monocytes (%) (Auto) 12.1 % Eosinophils (%) (Auto) 2.2 % Basophils (%) (Auto) 0.6 % Neutrophils # (Auto) 4.1 TH/MM3 Lymphocytes # (Auto) 0.8 TH/MM3 Monocytes # (Auto) 0.7 TH/MM3 Eosinophils # (Auto) 0.1 TH/MM3 Basophils # (Auto) 0.0 TH/MM3 CBC Comment DIFF FINAL Differential Comment Sodium Level 145 MEQ/L Potassium Level 4.6 MEQ/L Chloride Level 99 MEQ/L Carbon Dioxide Level 42.4 MEQ/L Anion Gap 4 MEQ/L Blood Urea Nitrogen 15 MG/DL Creatinine 0.66 MG/DL Estimat Glomerular Filtration 116 ML/MIN Rate Random Glucose 123 MG/DL Calcium Level 8.0 MG/DL Magnesium Level 2.0 MG/DL Total Bilirubin 0.5 MG/DL Aspartate Amino Transf 38 U/L (AST/SGOT) Alanine Aminotransferase 31 U/L (ALT/SGPT) Alkaline Phosphatase 202 U/L Total Creatine Kinase 50 U/L Troponin I 0.03 NG/ML B-Type Natriuretic Peptide 284 PG/ML Total Protein 5.9 GM/DL Albumin 2.2 GM/DL MDM Medical Decision Making Medical Screen Exam Complete: Yes Emergency Medical Condition: Yes Medical Record Reviewed: Yes (records reviewed. He has had recent respiratory failure secondary to a large right pleural effusion, COPD and pulmonary hypertension.) Interpretation(s) EKG shows atrial fibrillation with a controlled ventricular rate of 87. Differential Diagnosis Differential diagnosis of dyspnea includes but is not limited to congestive heart failure, pneumonia, wheezing, pneumothorax, pulmonary embolism Narrative Course Patient presents from a prison for low oxygen saturation. His history is significant for respiratory failure, COPD, pulmonary hypertension and previous right pleural effusion. His oxygen saturation at this time is in the mid 90s. This is on his usual oxygen level. CBC & BMP Diagram 11/06/16 23:23 Cardiac enzymes are negative. BNP is 284. Last Impressions Chest X-Ray 11/06/16 8162 Signed Impressions: Service Date/Time: Sunday, November 06, 2016 23:15 - CONCLUSION: No significant change. Persistent bilateral pulmonary parenchymal opacity with lower lung zone predominance and bilateral pleural effusions along with evidence of pulmonary edema. Persistent marked cardiac silhouette enlargement. Mathew Guerrero MD The chest x-ray was independently viewed by me. This patient appears to be at his baseline. He will be discharged back to the prison. Diagnosis Primary Impression: COPD (chronic obstructive pulmonary disease) Qualified Code: J44.9 - Chronic obstructive pulmonary disease, unspecified COPD type Disposition: 03 DISCHARGE TO SNF Condition: Stable Maddison Dan MD Nov 06, 2016 22:58
[2016-11-06] MEDS ORDERED: SODIUM CHLORIDE 0.9% FLUSH 5 ML FLUSH IVF PRN (23:00)
[2016-11-06] MEDS ORDERED: LORazepam 2 MG/ML VIAL IV PUSH PRN (23:00)
--- NOTE | 2016-11-06 23:37 | RADRPT ---
EXAM DATE/TIME: 11/06/2016 23:15 [facility] COMPARISON: CHEST SINGLE AP, October 18, 2016, 15:57. INDICATIONS : Shortness of breath MEDICAL HISTORY : Chronic obstructive pulmonary disease. Congestive heart failure. SURGICAL HISTORY : None. ENCOUNTER: Initial ACUITY: 1 day PAIN SCORE: Non-responsive. LOCATION: Bilateral chest FINDINGS: Single AP view of the chest. Marked cardiac silhouette enlargement again seen. Bilateral pulmonary pa renchymal opacity and bilateral pleural effusions unchanged. Pulmonary vasculature central prominence and indistinctness suggests pulmonary edema. CONCLUSION: No significant change. Persistent bilateral pulmonary parenchymal opacity with lower lung zone predom inance and bilateral pleural effusions along with evidence of pulmonary edema. Persistent marked card iac silhouette enlargement. Mathew Guerrero MD on November 06, 2016 at 23:35 Board Certified Radiologist. This report was verified electronically.
[2016-11-06 23:38] VITALS: BP 129/60; PULSE 84; RESP 23; O2SAT 96
[2016-11-06 23:39] LABS: AUTOMATED NEUTROPHIL # 4.1 TH/MM3 (1.8-7.7); BASOPHIL % 0.6 % (0.0-2.0); EOSINOPHIL # 0.1 TH/MM3 (0-0.4); EOSINOPHIL % 2.2 % (0.0-4.0); HEMATOCRIT 34.7 % (39.0-51.0); HEMO FLAGS DIFF FINAL; LYMPH % 13.5 % (9.0-44.0); LYMPHOCYTE # 0.8 TH/MM3 (1.0-4.8); MEAN CELL VOLUME 100.7 FL (80.0-100.0); MEAN CORPUSCULAR HEMOGLOBIN 33.4 PG (27.0-34.0); MEAN CORPUSCULAR HGB CONC 33.1 % (32.0-36.0); MONO % 12.1 % (0.0-8.0); NEUT % 71.6 % (16.0-70.0); PLATELET COUNT 132 TH/MM3 (150-450); RED BLOOD COUNT 3.44 MIL/MM3 (4.50-5.90); RED CELL DISTRIBUTION WIDTH 15.8 % (11.6-17.2); WHITE BLOOD COUNT 5.7 TH/MM3 (4.0-11.0)
[2016-11-07 00:14] LABS: ANION GAP 4 MEQ/L (5-15); AST (GOT) 38 U/L (15-37); BICARBONATE 42.4 MEQ/L (21.0-32.0); BLOOD UREA NITROGEN 15 MG/DL (7-18); CHLORIDE 99 MEQ/L (98-107); GLOMERULAR FILTRATION RATE 116 ML/MIN (>89); POTASSIUM 4.6 MEQ/L (3.5-5.1); SODIUM (NA) 145 MEQ/L (136-145)
[2016-11-07 00:19] LABS: ALKALINE PHOSPHATASE 202 U/L (45-117); ALT (GPT) 31 U/L (12-78); TOTAL BILIRUBIN ADULT 0.5 MG/DL (0.2-1.0)
[2016-11-07 00:29] LABS: CREATINE KINASE 50 U/L (39-308)
[2016-11-07 07:25] VITALS: BP 150/88; PULSE 81; RESP 18; O2SAT 98
--- NOTE | 2016-11-07 13:54 | EKG ---
Date Performed: 11/06/2016 Time Performed: 22:23:44 PTAGE: 81 years EKG: ATRIAL FIBRILLATION INDETERMINATE AXIS RIGHT BUNDLE BRANCH BLOCK ABNORMAL ECG PREVIOUS TRACING : 10/06/2016 13.40 DOCTOR: Min Delgado Interpretating Date/Time 11/07/2016 13:50:15
== END 2016-11-07 09:59 ==
LOC: NEPC 21:52 → NEPA 11-07 09:59
DX: J44.9 Chronic obstructive pulmonary disease, unspecified (principal); F03.90 Unspecified dementia, unspecified severity, without behavioral disturbance, psychotic disturbance, mood disturbance, and anxiety; I48.91 Unspecified atrial fibrillation; I50.9 Heart failure, unspecified; I10 Essential (primary) hypertension; Z99.81 Dependence on supplemental oxygen; Z79.01 Long term (current) use of anticoagulants; F12.90 Cannabis use, unspecified, uncomplicated
CPT/HCPCS: 71010; 80053; 82550; 83735; 83880; 84484; 85025; 93005

== ENCOUNTER 2016-11-07 19:51 | Inpatient (IN) | payer MEDICARE, OTHER ==
[~2016-11-07] VITALS: Ht 177.8 cm; Wt 62.4 kg
[2016-11-07 19:55] VITALS: BP 164/84; PULSE 109; RESP 32; TEMP 97.5; O2SAT 99
[2016-11-07] MEDS ORDERED: SODIUM CHLOR 0.9% 1000 ML INJ 1,000 ML IV SCH (19:56)
[2016-11-07] MEDS ORDERED: SODIUM CHLORIDE 0.9% FLUSH 5 ML FLUSH IVF PRN (20:00)
[2016-11-07] MEDS ORDERED: CEFEPIME INJ 2,000 MG in SODIUM CHLORIDE 0.9% INJ 100 ML IV ONE (20:00)
[2016-11-07] MEDS ORDERED: AZITHROMYCIN INJ 500 MG in SODIUM CHLOR 0.9% 250 ML INJ 250 ML IV ONE (20:00)
--- NOTE | 2016-11-07 20:05 | PD ---
HPI Chief Complaint: Altered Mental Status Time Seen by Provider: 19:56 Travel History International Travel<30 days: No Contact w/Intl Traveler<30days: No Traveled to known affect area: No History of Present Illness HPI The patient is a 81-year-old male who presents emergency department via EMS from a longterm, [facility]. The patient apparently was in the hospital in September for respiratory distress and had a chest tube placed for a large pleural effusion. The patient's sesamoid discharged a longterm. The patient was reevaluated yesterday in the emergency department and appear to have a chest x-ray that was unchanged, however, did reveal possible effusion and /or consolidation. The patient has been on Levaquin at the longterm for pneumonia, however, does have progressing symptoms. The longterm papers states that the patient is had decreasing mental status and increased work of breathing. Upon arrival the patient will follow a few simple commands, will open his eyes to voice commands, but is unable to provide any history. He was noted to have tachypnea and required oxygen at 6 L via nasal cannula to obtain an O2 saturation 98%. According to EMS the patient was just placed on oxygen yesterday at the longterm. There is no CODE STATUS with the patient from the longterm. PFSH Past Medical History Hx Anticoagulant Therapy: Yes (WARFARIN) Atrial Fibrillation: Yes Heart Rhythm Problems: Yes (AFIB) Cancer: Yes (SKIN) Cardiovascular Problems: Yes High Cholesterol: Yes Chemotherapy: No Congestive Heart Failure: Yes COPD: Yes Cerebrovascular Accident: Yes Diabetes: No Diminished Hearing: No Endocrine: No Genitourinary: No Hypertension: Yes Immune Disorder: No Musculoskeletal: Yes (weakness) Neurologic: Yes (hx of stroke) Psychiatric: No Reproductive: No Respiratory: Yes Past Surgical History Thoracic Surgery: Yes (THORENCENTESIS 10/06/16 ) Other Surgery: Yes Social History Alcohol Use: No Tobacco Use: No Substance Use: No Allergies-Medications (Allergen,Severity, Reaction): Coded Allergies: No Known Allergies (Verified , 11/07/16) Reported Meds & Prescriptions Reported Meds & Active Scripts Active Xanax (Alprazolam) 0.25 Mg Tab 0.25 Mg PO Q6H PRN Reported Ciclopirox (Nail Lacquer) Topical 8% Soln 1 Applic TOPICAL HS Ginkgo Biloba 120 Mg Tab [place] 3 1000 mg ([place]-3 Fatty Acids) 1 Cap Cap Milk Thistle 140 Mg Cap BID Warfarin 5 Mg Tab 5 Mg PO DAILY Klor-Con 10 (Potassium Chloride) 10 Meq Tab 10 Meq PO DAILY Atenolol 50 Mg Tab 50 Mg PO BID Captopril 50 Mg Tab 50 Mg PO TIDAC Take 1 hour before meals. Furosemide 20 Mg Tab 20 Mg PO DAILY Review of Systems ROS Limitations: Clinical Condition, Poor Historian Except as stated in HPI: all other systems reviewed are Neg Respiratory: Positive: Shortness of Breath (according to the longterm) Neurologic: Positive: Change in Mentation (according to the longterm) Physical Exam Exam Limitations: Clinical Condition, Altered Mental Status Narrative GENERAL: 81-year-old male who appears his stated age and appears to have moderate shortness of breath. SKIN: Old appearing ecchymosis and abrasions to the right upper extremity. HEAD: Atraumatic. Normocephalic. EYES: Pupils equal and round. 3 mm bilateral. ENT: No nasal bleeding or discharge. Dry mucous membranes. NECK: Trachea midline. No JVD. CARDIOVASCULAR: Irregular, heart rate in the 90s. RESPIRATORY: Tachypnea with a respiratory rate of 32. Diminished breath sounds in the right base. GASTROINTESTINAL: Abdomen soft, non-tender, nondistended. No rebound tenderness. MUSCULOSKELETAL: Chronic venous stasis changes of the lower extremities bilaterally. NEUROLOGICAL: Open his eyes to command, speech is unintelligible. Will follow simple commands. PSYCHIATRIC: Unable to assess. Data Data Last Documented VS Vital Signs Date Time Temp Pulse Resp B/P Pulse Ox O2 Delivery O2 Flow Rate FiO2 11/07/16 20:45 90 22 98 Nasal Cannula 6 11/07/16 19:55 97.5 164/84 Orders Electrocardiogram (11/07/16 19:56) Complete Blood Count With Diff (11/07/16 19:56) Comprehensive Metabolic Panel (11/07/16 19:56) Creatine Kinase (Cpk) (11/07/16 19:56) Prothrombin Time / Inr (Pt) (11/07/16 19:56) Act Partial Throm Time (Ptt) (11/07/16 19:56) Troponin I (11/07/16 19:56) Thyroid Stimulating Hormone (11/07/16 19:56) Lactic Acid Sepsis Protocol (11/07/16 19:56) Urinalysis - C+S If Indicated (11/07/16 19:56) Arterial Blood Gas (Abg) (11/07/16 19:56) Blood Culture (11/07/16 19:56) Chest, Single Ap (11/07/16 19:56) Ct Brain W/O Iv Contrast(Rout) (11/07/16 19:56) Blood Glucose (11/07/16 19:56) Ecg Monitoring (11/07/16 19:56) Iv Access Insert/Monitor (11/07/16 19:56) Oximetry (11/07/16 19:56) Sodium Chloride 0.9% Flush (Ns Flush) (11/07/16 20:00) Sodium Chlor 0.9% 1000 Ml Inj (Ns 1000 M (11/07/16 19:56) Ct Pulmonary Angiogram (11/07/16 ) Cefepime Inj (Maxipime Inj) (11/07/16 20:00) Azithromycin Inj (Zithromax Inj) (11/07/16 20:00) Iohexol 350 Inj (Omnipaque 350 Inj) (11/07/16 20:52) Admit Order (Ed Use Only) (11/07/16 21:59) Labs Laboratory Tests Test 11/07/16 11/07/16 20:01 20:10 Blood Gas Puncture Site LT RADIAL Blood Gas Patient Temperature 98.6 Blood Gas HCO3 44 mmol/L Blood Gas Base Excess 17.3 mmol/L Blood Gas Oxygen Saturation 97 % Arterial Blood pH 7.32 Arterial Blood Partial 89 mmHg Pressure CO2 Arterial Blood Partial 126 mmHG Pressure O2 Arterial Blood Oxygen Content 16.1 Vol % Arterial Blood 1.5 % Carboxyhemoglobin Arterial Blood Methemoglobin 0.3 % Blood Gas Hemoglobin 11.7 G/DL Oxygen Delivery Device NASAL CANNULA Blood Gas Liter Flow 6 L/M White Blood Count 4.9 TH/MM3 Red Blood Count 3.75 MIL/MM3 Hemoglobin 12.2 GM/DL Hematocrit 38.3 % Mean Corpuscular Volume 102.3 FL Mean Corpuscular Hemoglobin 32.5 PG Mean Corpuscular Hemoglobin 31.8 % Concent Red Cell Distribution Width 15.5 % Platelet Count 110 TH/MM3 Mean Platelet Volume 8.5 FL Neutrophils (%) (Auto) 70.6 % Lymphocytes (%) (Auto) 16.1 % Monocytes (%) (Auto) 10.5 % Eosinophils (%) (Auto) 2.0 % Basophils (%) (Auto) 0.8 % Neutrophils # (Auto) 3.5 TH/MM3 Lymphocytes # (Auto) 0.8 TH/MM3 Monocytes # (Auto) 0.5 TH/MM3 Eosinophils # (Auto) 0.1 TH/MM3 Basophils # (Auto) 0.0 TH/MM3 CBC Comment DIFF FINAL Differential Comment Prothrombin Time 14.2 SEC Prothromb Time International 1.3 RATIO Ratio Activated Partial 31.3 SEC Thromboplast Time Sodium Level 143 MEQ/L Potassium Level 4.3 MEQ/L Chloride Level 97 MEQ/L Carbon Dioxide Level 42.2 MEQ/L Anion Gap 4 MEQ/L Blood Urea Nitrogen 12 MG/DL Creatinine 0.65 MG/DL Estimat Glomerular Filtration 118 ML/MIN Rate Random Glucose 80 MG/DL Lactic Acid Level 1.0 mmol/L Calcium Level 8.5 MG/DL Total Bilirubin 0.6 MG/DL Aspartate Amino Transf 28 U/L (AST/SGOT) Alanine Aminotransferase 28 U/L (ALT/SGPT) Alkaline Phosphatase 218 U/L Total Creatine Kinase 27 U/L Troponin I 0.02 NG/ML Total Protein 6.4 GM/DL Albumin 2.4 GM/DL Thyroid Stimulating Hormone 1.460 uIU/ML [address] [place] [address] Medical Decision Making Medical Screen Exam Complete: Yes Emergency Medical Condition: Yes Medical Record Reviewed: Yes Interpretation(s) EKG reveals atrial fibrillation. Right bundle-branch block. Rate 93. Last Impressions Head CT 11/07/161955 Signed Impressions: Service Date/Time: October 20:38 - CONCLUSION: No acute intracranial abnormality demonstrated. Chronic white matter and old ischemic changes. Dhruv Foster MD Chest X-Ray 11/07/161955 Signed Impressions: Service Date/Time: October 20:54 - CONCLUSION: Worsening bilateral airspace disease and pleural effusions. Dhruv Foster MD CT Angiography 11/07/16 0000 Signed Impressions: Service Date/Time: October 20:40 - CONCLUSION: 1. No pulmonary embolus. 2. Marked cardiac enlargement, especially the atria. 3. Bilateral effusions and atelectasis about the same on the left and considerably worse on the right. Right pneumothorax seen previously has resolved. Dhruv Foster MD Laboratory Tests Test 11/07/16 11/07/16 20:01 20:10 Blood Gas Puncture Site LT RADIAL Blood Gas Patient Temperature 98.6 Blood Gas HCO3 44 mmol/L Blood Gas Base Excess 17.3 mmol/L Blood Gas Oxygen Saturation 97 % Arterial Blood pH 7.32 Arterial Blood Partial 89 mmHg Pressure CO2 Arterial Blood Partial 126 mmHG Pressure O2 Arterial Blood Oxygen Content 16.1 Vol % Arterial Blood 1.5 % Carboxyhemoglobin Arterial Blood Methemoglobin 0.3 % Blood Gas Hemoglobin 11.7 G/DL Oxygen Delivery Device NASAL CANNULA Blood Gas Liter Flow 6 L/M White Blood Count 4.9 TH/MM3 Red Blood Count 3.75 MIL/MM3 Hemoglobin 12.2 GM/DL Hematocrit 38.3 % Mean Corpuscular Volume 102.3 FL Mean Corpuscular Hemoglobin 32.5 PG Mean Corpuscular Hemoglobin 31.8 % Concent Red Cell Distribution Width 15.5 % Platelet Count 110 TH/MM3 Mean Platelet Volume 8.5 FL Neutrophils (%) (Auto) 70.6 % Lymphocytes (%) (Auto) 16.1 % Monocytes (%) (Auto) 10.5 % Eosinophils (%) (Auto) 2.0 % Basophils (%) (Auto) 0.8 % Neutrophils # (Auto) 3.5 TH/MM3 Lymphocytes # (Auto) 0.8 TH/MM3 Monocytes # (Auto) 0.5 TH/MM3 Eosinophils # (Auto) 0.1 TH/MM3 Basophils # (Auto) 0.0 TH/MM3 CBC Comment DIFF FINAL Differential Comment Prothrombin Time 14.2 SEC Prothromb Time International 1.3 RATIO Ratio Activated Partial 31.3 SEC Thromboplast Time Sodium Level 143 MEQ/L Potassium Level 4.3 MEQ/L Chloride Level 97 MEQ/L Carbon Dioxide Level 42.2 MEQ/L Anion Gap 4 MEQ/L Blood Urea Nitrogen 12 MG/DL Creatinine 0.65 MG/DL Estimat Glomerular Filtration 118 ML/MIN Rate Random Glucose 80 MG/DL Lactic Acid Level 1.0 mmol/L Calcium Level 8.5 MG/DL Total Bilirubin 0.6 MG/DL Aspartate Amino Transf 28 U/L (AST/SGOT) Alanine Aminotransferase 28 U/L (ALT/SGPT) Alkaline Phosphatase 218 U/L Total Creatine Kinase 27 U/L Troponin I 0.02 NG/ML Total Protein 6.4 GM/DL Albumin 2.4 GM/DL Thyroid Stimulating Hormone 1.460 uIU/ML 3rd Gen Differential Diagnosis differential diagnosis includes pleural effusion, pneumonia, pulmonary embolism , hypercapnia, sepsis, hyponatremia, dehydration, congestive heart failure, hypoxia. Narrative Course IV was established, labs are drawn and sent, and the patient was placed on cardiac telemetry monitoring and continuous pulse oximetry monitoring. EKG was ordered and interpreted. Chest x-ray was obtained. CT pulmonary angiogram was ordered to rule out PE, patient has significant hypoxia in the low 80s on 2 L, require 6 L via nasal cannula to obtain an O2 saturation of 98%. Blood cultures and lactic acid were sent to lab. The patient received cefepime and Zithromax to cover for possible hospital acquired pneumonia. The patient was administered 1 L of IV fluids. Chest x-ray reveals no significant changes, however, patient does have consolidative changes and pleural effusion. CT pulmonary injury gram was negative for PE, however, patient has significant reaccumulation of right pleural effusion. I had a discussion with the daughter , Raissa, at bedside who is the patient's health plant health care technician and makes his healthcare decisions. We had a discussion regarding CODE STATUS, the patient's daughter states she wants everything done for her father so she can eventually take him home. We did have a discussion regarding his debilitated state and recurrent pleural effusion. She is requested admission and possible drainage. Patient may benefit from pigtail catheter for drainage as this is recurrent. Patient will be admitted. The patient's IV fluids were administered judiciously as the patient does have a large pleural effusion and history of congestive heart failure. Physician Communication Physician Communication The patient has [employer], therefore, [facility] were paged for admission. I discussed the patient with Dr. Low who agrees with admission. Diagnosis Primary Impression: Pleural effusion, right Additional Impressions: Dyspnea Qualified Code: R06.02 - Shortness of breath Acute respiratory failure with hypoxia and hypercapnia Admitting Information Admitting Physician Requests: Admit Condition: Stable Theron Bennett MD Nov 07, 2016 20:05
[2016-11-07 20:09] VITALS: RESP 34; O2SAT 100
[2016-11-07 20:12] LABS: BLOOD GAS BASE EXCESS 17.3 mmol/L (-2-2); BLOOD GAS CARBOXYHEMOGLOBIN 1.5 % (0-4); BLOOD GAS HCO3 44 mmol/L (22-26); BLOOD GAS METHEMOGLOBIN 0.3 % (0-2); BLOOD GAS O2 HGB SATURATION 97 % (90-100); BLOOD GAS OXYGEN CONTENT 16.1 Vol % (12.0-20.0); BLOOD GAS PCO2 89 mmHg (38-42); BLOOD GAS PO2 126 mmHG (61-120); BLOOD GAS TOTAL HGB 11.7 G/DL (12.0-16.0); TEMP CORR TO 98.6
[2016-11-07 20:13] LABS: CRITICAL VALUE YES; DRAW SITE LT RADIAL; LITER FLOW 6 L/M; NUMBER OF ARTERIAL PUNCTURES 1; OXYGEN DEVICE NASAL CANNULA; STAT YES
[2016-11-07 20:44] VITALS: O2SAT 88
[2016-11-07 20:45] VITALS: PULSE 90; RESP 22; O2SAT 98
[2016-11-07] MEDS ORDERED: IOHEXOL 350 MG/ML 10 ML VIAL (for RAD DIAG) IV ONE (20:52)
--- NOTE | 2016-11-07 21:03 | RADRPT ---
EXAM DATE/TIME: 11/07/2016 20:38 [facility] COMPARISON: CT BRAIN W/O CONTRAST, October 06, 2016, 16:27. INDICATIONS : Confusion and altered mental status. RADIATION DOSE: 56.35 CTDIvol (mGy) MEDICAL HISTORY : Stroke. Congestive heart failure. Chronic obstructive pulmonary disease. SURGICAL HISTORY : None. ENCOUNTER: Initial ACUITY: 1 day PAIN SCALE: 0/10 LOCATION: cranial TECHNIQUE: Multiple contiguous axial images were obtained of the head. Using automated exposure control and adj ustment of the mA and/or kV according to patient size, radiation dose was kept as low as reasonably a chievable to obtain optimal diagnostic quality images. FINDINGS: Motion degraded study. CEREBRUM: The ventricles are normal for age. No evidence of midline shift, mass lesion, hemorrhage or acute in farction. No extra-axial fluid collections are seen. Chronic low attenuation seen in the periventric ular white matter. There is an old lacunar infarct of the right basal ganglia again noted. POSTERIOR FOSSA: The cerebellum and brainstem are intact. The 4th ventricle is midline. The cerebellopontine angle i s unremarkable. EXTRACRANIAL: The visualized portion of the orbits is intact. SKULL: The calvaria is intact. No evidence of skull fracture. CONCLUSION: No acute intracranial abnormality demonstrated. Chronic white matter and old ischemic changes. Dhruv Foster MD on November 07, 2016 at 21:01 Board Certified Radiologist. This report was verified electronically.
--- NOTE | 2016-11-07 21:07 | RADRPT ---
EXAM DATE/TIME: 11/07/2016 20:40 [facility] COMPARISON: CT THORAX W/O CONTRAST, October 09, 2016, 21:35. CHEST SINGLE AP, November 06, 2016, 23:15. INDICATIONS : Shortness of breath and altered mental status. IV CONTRAST: 70 cc Omnipaque 350 (iohexol) IV RADIATION DOSE: 17.23 CTDIvol (mGy) MEDICAL HISTORY : Stroke. Congestive heart failure. Chronic obstructive pulmonary disease. SURGICAL HISTORY : None. ENCOUNTER: Initial ACUITY: 1 day PAIN SCALE: 2/10 LOCATION: Bilateral chest TECHNIQUE: Volumetric scanning of the chest was performed using a pulmonary embolism protocol MIP images were re constructed. Using automated exposure control and adjustment of the mA and/or kV according to patien t size, radiation dose was kept as low as reasonably achievable to obtain optimal diagnostic quality images. FINDINGS: No pulmonary embolus. Marked biatrial enlargement. There is coronary artery calcification both right and left-sided. Moderate large bilateral pleural effusions with dependent/compressive atelectasis. Previously seen ri ght pneumothorax has resolved. Chest tube is been removed. CONCLUSION: 1. No pulmonary embolus. 2. Marked cardiac enlargement, especially the atria. 3. Bilateral effusions and atelectasis about the same on the left and considerably worse on the right . Right pneumothorax seen previously has resolved. Dhruv Foster MD on November 07, 2016 at 21:02 Board Certified Radiologist. This report was verified electronically.
[2016-11-07 21:08] LABS: APTT (PATIENT) 31.3 SEC (24.3-30.1); INTERNATIONAL NORMALIZED RATIO 1.3 RATIO; PROTHROMBIN TIME - PATIENT 14.2 SEC (9.8-11.6)
--- NOTE | 2016-11-07 21:13 | RADRPT ---
EXAM DATE/TIME: 11/07/2016 20:54 [facility] COMPARISON: No previous studies available for comparison. INDICATIONS : Shortness of breath. MEDICAL HISTORY : Chronic obstructive pulmonary disease. Congestive heart failure. SURGICAL HISTORY : None. ENCOUNTER: Initial ACUITY: 1 day PAIN SCORE: Non-responsive. LOCATION: chest FINDINGS: Diffuse airspace opacities and small moderate bilateral pleural effusions are worse on both sides. No pneumothorax. Mild to moderate cardiomegaly is stable. CONCLUSION: Worsening bilateral airspace disease and pleural effusions. Dhruv Foster MD on November 07, 2016 at 21:10 Board Certified Radiologist. This report was verified electronically.
[2016-11-07 21:21] LABS: ANION GAP 4 MEQ/L (5-15); AST (GOT) 28 U/L (15-37); BICARBONATE 42.2 MEQ/L (21.0-32.0); BLOOD UREA NITROGEN 12 MG/DL (7-18); CHLORIDE 97 MEQ/L (98-107); GLOMERULAR FILTRATION RATE 118 ML/MIN (>89); POTASSIUM 4.3 MEQ/L (3.5-5.1); SODIUM (NA) 143 MEQ/L (136-145)
[2016-11-07 21:32] LABS: ALKALINE PHOSPHATASE 218 U/L (45-117); ALT (GPT) 28 U/L (12-78); TOTAL BILIRUBIN ADULT 0.6 MG/DL (0.2-1.0)
[2016-11-07 21:33] LABS: CREATINE KINASE 27 U/L (39-308)
[2016-11-07 21:59] LABS: AUTOMATED NEUTROPHIL # 3.5 TH/MM3 (1.8-7.7); BASOPHIL % 0.8 % (0.0-2.0); EOSINOPHIL # 0.1 TH/MM3 (0-0.4); HEMATOCRIT 38.3 % (39.0-51.0); HEMO FLAGS DIFF FINAL; LYMPH % 16.1 % (9.0-44.0); LYMPHOCYTE # 0.8 TH/MM3 (1.0-4.8); MEAN CELL VOLUME 102.3 FL (80.0-100.0); MEAN CORPUSCULAR HEMOGLOBIN 32.5 PG (27.0-34.0); MEAN CORPUSCULAR HGB CONC 31.8 % (32.0-36.0); MONO % 10.5 % (0.0-8.0); NEUT % 70.6 % (16.0-70.0); PLATELET COUNT 110 TH/MM3 (150-450); RED BLOOD COUNT 3.75 MIL/MM3 (4.50-5.90); RED CELL DISTRIBUTION WIDTH 15.5 % (11.6-17.2); WHITE BLOOD COUNT 4.9 TH/MM3 (4.0-11.0)
[2016-11-07] MEDS ORDERED: SODIUM CHLORIDE 0.9% FLUSH 5 ML FLUSH FLUSH PRN (22:00)
[2016-11-07] MEDS ORDERED: NALOXONE HCL 0.4 MG/ML AMP IV PRN (22:00)
[2016-11-07 22:24] LABS: BLOOD, URINE NEG (NEG); GLUCOSE,URINE NEG (NEG); KETONE, URINE NEG (NEG); MUCUS URINE FEW /lpf (OCC); NITRITE,URINE NEG (NEG); PH, URINE 5.5 (5.0-8.5); URINE COLOR YELLOW (YELLW/STRAW)
[2016-11-07 22:31] LABS: COMMENT (UR) CATH-CULT NOT IND; CULTURE IF INDICATED CATH CULTURE NOT IND
[2016-11-08] VITALS (21 sets, daily range): BP systolic 97–167; BP diastolic 55–77; PULSE 84–110; RESP 19–29; TEMP 97.6–98.2; O2SAT 87–99
--- NOTE | 2016-11-08 01:19 | HHI.HP ---
[facility] Service [facility] Primary Care Physician No Primary Care Physician Admission Diagnosis large right pleural effusion, hypoxia, pneumonia Diagnoses: Chief Complaint: Not able to give specific complaints Travel History International Travel<30 Days: No Contact w/Intl Traveler <30 Da: No Traveled to Known Affected Are: No History of Present Illness History from ER physician communication, review of medical records. Patient himself is quite drowsy at the time of my exam. He is only able to answer yes whenever I called his name and tried to wake him up by sternal rub. Per ER communication, patient was sent from [facility] because of progressive dyspnea. He was discharged from our hospital on July 20, 2017 after about 13 days of hospitalization. At that time, he was admitted for respiratory failure secondary to pleural effusions which are recurrent. He did undergo thoracocentesis with subsequent pneumothorax as a complication. He then also had pleurodesis done. Palliative care team was involved in his care during that hospitalization but it seems that from notes, patient's family members wanted aggressive care. Cardiothoracic surgeons have evaluated the patient at that time for possible decortication and thought that patient is not a candidate for any invasive procedures. As per longterm notes, patient was already on Levaquin at the nursing facility for pneumonia. The main complaint for reason for transfer per the notes is altered mentation as well. However apparently in the emergency room, patient was much more awake and alert. Patient ABGs that were done in ER reveals compensated chronic CO2 retention. This was on 6 L nasal cannula. Therefore they have decreased it down to 4 L nasal cannular. However upon my arrival, patient is quite lethargic. He was saturating 100% on FiO2 of 4 L nasal cannula. Otherwise, vitals remained stable. Review of Systems Unable to review Past Family Social History Past Medical History Recent hospitalization from 10/06/16-10/20/16 due to respiratory failure from pleural effusions status post chest tube placement, followed by pleurodesis with talc on October 16, 2016. Patient was evaluated by cardiothoracic surgeon and he is not a candidate for decortication/aggressive measures. Recent right pneumothoraxwhich developed post thoracocentesis COPDwith chronic CO2 retention Diastolic heart failure Cor pulmonale/pulmonary hypertension of 85 mmHg Severe tricuspid regurgitation Hypertension Atrial fibrillation Chronic anticoagulation on Coumadin Severe Protein calorie malnutrition Past Surgical History Per EMR: Thoracocentesis Chest tube placements Right eye surgery Right knee surgery Reported Medications Patient's medications list is on EMR and longterm notesreviewed Allergies: Coded Allergies: No Known Allergies (Verified , 11/07/16) Family History Unknown Social History Per EMR: No History of alcohol abuse or drug abuse. Physical Exam Vital Signs Vital Signs Date Time Temp Pulse Resp B/P Pulse Ox O2 Delivery O2 Flow Rate FiO2 11/07/16 20:45 90 22 98 Nasal Cannula 6 11/07/16 20:44 88 Nasal Cannula 4 11/07/16 20:09 34 100 Nasal Cannula 6 11/07/16 19:58 87 34 98 Nasal Cannula 6 11/07/16 19:55 97.5 109 32 164/84 99 Physical Exam GENERAL: This is a well-nourished, well-developed patient, in quite lethargic, sleeping, only responds yes to external stimuli SKIN: Superficial ecchymosis HEAD: Atraumatic. Normocephalic. No temporal or scalp tenderness. EYES: No scleral icterus. No injection or drainage. ENT: Nose without bleeding, purulent drainage or septal hematoma.Airway patent. NECK: Trachea midline.+JVD CARDIOVASCULAR: Regular rate and rhythm without murmurs, gallops, or rubs. RESPIRATORY: Bilaterally decreased air entry. Mild expiratory wheezing as well. GASTROINTESTINAL: Abdomen soft, non-tender, nondistended.No guarding. MUSCULOSKELETAL: Extremities without clubbing, cyanosis, or edema. NEUROLOGICAL: Quite lethargic, Normal speech. Laboratory Laboratory Tests Test 11/07/16 11/07/16 11/07/16 20:01 20:10 22:00 Blood Gas Puncture Site LT RADIAL Blood Gas Patient Temperature 98.6 Blood Gas HCO3 44 Blood Gas Base Excess 17.3 Blood Gas Oxygen Saturation 97 Arterial Blood pH 7.32 Arterial Blood Partial 89 Pressure CO2 Arterial Blood Partial 126 Pressure O2 Arterial Blood Oxygen Content 16.1 Arterial Blood 1.5 Carboxyhemoglobin Arterial Blood Methemoglobin 0.3 Blood Gas Hemoglobin 11.7 Oxygen Delivery Device NASAL CANNULA Blood Gas Liter Flow 6 White Blood Count 4.9 Red Blood Count 3.75 Hemoglobin 12.2 Hematocrit 38.3 Mean Corpuscular Volume 102.3 Mean Corpuscular Hemoglobin 32.5 Mean Corpuscular Hemoglobin 31.8 Concent Red Cell Distribution Width 15.5 Platelet Count 110 Mean Platelet Volume 8.5 Neutrophils (%) (Auto) 70.6 Lymphocytes (%) (Auto) 16.1 Monocytes (%) (Auto) 10.5 Eosinophils (%) (Auto) 2.0 Basophils (%) (Auto) 0.8 Neutrophils # (Auto) 3.5 Lymphocytes # (Auto) 0.8 Monocytes # (Auto) 0.5 Eosinophils # (Auto) 0.1 Basophils # (Auto) 0.0 CBC Comment DIFF FINAL Differential Comment Prothrombin Time 14.2 Prothromb Time International 1.3 Ratio Activated Partial 31.3 Thromboplast Time Sodium Level 143 Potassium Level 4.3 Chloride Level 97 Carbon Dioxide Level 42.2 Anion Gap 4 Blood Urea Nitrogen 12 Creatinine 0.65 Estimat Glomerular Filtration 118 Rate Random Glucose 80 Lactic Acid Level 1.0 Calcium Level 8.5 Total Bilirubin 0.6 Aspartate Amino Transf 28 (AST/SGOT) Alanine Aminotransferase 28 (ALT/SGPT) Alkaline Phosphatase 218 Total Creatine Kinase 27 Troponin I 0.02 Total Protein 6.4 Albumin 2.4 Thyroid Stimulating Hormone 1.460 3rd Gen Urine Color YELLOW Urine Turbidity CLEAR Urine pH 5.5 Urine Specific [place] GREATER THAN 1.050 Urine Protein TRACE Urine Glucose (UA) NEG Urine Ketones NEG Urine Occult Blood NEG Urine Nitrite NEG Urine Bilirubin NEG Urine Urobilinogen LESS THAN 2.0 Urine Leukocyte Esterase NEG Urine RBC 7 Urine WBC 1 Urine Mucus FEW Microscopic Urinalysis Comment CATH-CULT NOT IND Date/Time Procedure Status Source Growth 11/07/16 20:10 Aerobic Blood Culture Received Blood Peripheral Pending 11/07/16 20:10 Anaerobic Blood Culture Received Blood Peripheral Pending Result Diagram: 11/07/16200911/07/162009 Imaging Last [address] 11/07/161955 Signed Impressions: Service Date/Time: October 20:38 - CONCLUSION: No acute intracranial abnormality demonstrated. Chronic white matter and old ischemic changes. Dhruv Foster MD Chest X-Ray 11/07/161955 Signed Impressions: Service Date/Time: October 20:54 - CONCLUSION: Worsening bilateral airspace disease and pleural effusions. Dhruv Foster MD CT Angiography 11/07/16 0000 Signed Impressions: Service Date/Time: October 20:40 - CONCLUSION: 1. No pulmonary embolus. 2. Marked cardiac enlargement, especially the atria. 3. Bilateral effusions and atelectasis about the same on the left and considerably worse on the right. Right pneumothorax seen previously has resolved. Dhruv Foster MD Assessment and Plan Problem List: (1) Acute respiratory failure with hypoxia and hypercapnia ICD Code: J96.01 Status: Acute (2) Pleural effusion, right ICD Code: J90 Status: Acute (3) Dyspnea ICD Code: R06.00 Status: Acute (4) Pulmonary artery hypertension ICD Code: I27.2 Status: Acute Assessment and Plan Impression: Acute hypoxemic and hypercapnic respiratory failure. With lethargylikely causing worsening CO2 retention Massive pleural effusions bilaterally right greater than leftrecurrent effusions Possible fluid overloadpatient received 1 L normal saline bolus in ER on top of IV antibiotics Hospital-acquired pneumonia Hypoxia Recent hospitalization from 10/06/16-10/20/16 due to respiratory failure from pleural effusions status post chest tube placement, followed by pleurodesis with talc on October 16, 2016. Patient was evaluated by cardiothoracic surgeon and he is not a candidate for decortication/aggressive measures. Recent right pneumothoraxwhich developed post thoracocentesis COPDwith chronic CO2 retention Diastolic heart failure Cor pulmonale/pulmonary hypertension of 85 mmHg Severe tricuspid regurgitation Hypertension Atrial fibrillation Chronic anticoagulation on Coumadin Severe Protein calorie malnutrition Plan: ABG stat. Lasix 40 mg IV stat. BiPAP 15 over 5 with FiO2 28% to keep O2 sat at 90% only. Patient was given Rocephin and azithromycin in ER. Start antibiotics for hospital acquired pneumonia. Hold by mouth meds. Stop IV fluids. ABG results reviewed one stent. Worsening significant CO2 retention. There for transfer patient to ICU status. Case discussed with sugar cane grower information management specialist as patient could likely end up being intubated if CO2 retention is not improved with BiPAP administration. Publications Manager had came to see patient at the bedside. Planned for emergent thoracocentesis to relieve respiratory status and to avoid intubation. Patient is transferred to intensive his care for critical care management. Critical care time 35 minutes Discussed Condition With ER MD, sugar cane grower MD, patient's nurse Physician Certification 2 Midnight Certification Type: Admission for Inpatient Services Order for Inpatient Services The services are ordered in accordance with Medicare regulations or non- Medicare payer requirements, as applicable. In the case of services not specified as inpatient-only, they are appropriately provided as inpatient services in accordance with the 2-midnight benchmark. Estimated LOS (days): 3 days is the estimated time the patient will need to remain in the hospital, assuming treatment plan goals are met and no additional complications. Post-Hospital Plan: Home Problem Qualifiers (1) Dyspnea: Qualified Code: R06.02 - Shortness of breath Obdulio Low MD Nov 08, 2016 01:18
[2016-11-08] MEDS ORDERED: FUROSEMIDE 40 MG/4 ML VIAL IV PUSH ONE (01:30)
[2016-11-08] MEDS ORDERED: ACETAMINOPHEN 325 MG TAB PO PRN (01:30)
[2016-11-08] MEDS ORDERED: ALPRAZolam 0.25 MG TAB PO PRN (01:30)
[2016-11-08 02:13] LABS: BLOOD GAS BASE EXCESS 15.2 mmol/L (-2-2); BLOOD GAS CARBOXYHEMOGLOBIN 2.1 % (0-4); BLOOD GAS HCO3 42 mmol/L (22-26); BLOOD GAS O2 HGB SATURATION 94 % (90-100); BLOOD GAS OXYGEN CONTENT 19.6 Vol % (12.0-20.0); BLOOD GAS PCO2 94 mmHg (38-42); BLOOD GAS PO2 93 mmHg (61-120); BLOOD GAS TOTAL HGB 14.8 G/DL (12.0-16.0); TEMP CORR TO 98.6
[2016-11-08 02:14] LABS: CRITICAL VALUE YES; DRAW SITE RT RADIAL; LITER FLOW 3 L/M; NUMBER OF ARTERIAL PUNCTURES 1; OXYGEN DEVICE NASAL CANNULA; STAT YES; ULNAR PULSE PRESENT
[2016-11-08 03:22] LABS: BLOOD GAS BASE EXCESS 16.4 mmol/L (-2-2); BLOOD GAS CARBOXYHEMOGLOBIN 2.2 % (0-4); BLOOD GAS HCO3 43 mmol/L (22-26); BLOOD GAS METHEMOGLOBIN 1.1 % (0-2); BLOOD GAS O2 HGB SATURATION 89 % (90-100); BLOOD GAS OXYGEN CONTENT 14.7 Vol % (12.0-20.0); BLOOD GAS PCO2 78 mmHg (38-42); BLOOD GAS PO2 62 mmHg (61-120); BLOOD GAS TOTAL HGB 11.8 G/DL (12.0-16.0); CRITICAL VALUE YES; TEMP CORR TO 98.6
[2016-11-08 03:23] LABS: DRAW SITE RT RADIAL; FIO2 30 %; NUMBER OF ARTERIAL PUNCTURES 1; OXYGEN DEVICE BIPAP; STAT NO; ULNAR PULSE PRESENT; VENT SETTINGS 15IPAP/5EPAP
[2016-11-08] MEDS ORDERED: VANCOMYCIN INJ 1,250 MG in SODIUM CHLORID 0.9% 500 ML INJ 500 ML IV ONE (03:45)
[2016-11-08] MEDS ORDERED: Vancomycin Consult Pharmacy 1 EA OTHER SCH (03:45)
--- NOTE | 2016-11-08 03:49 | PD.CONS ---
[facility] Service Critical Care Medicine Consult Requested By Dr. Low Reason for Consult hypercarbic respiratory failure Primary Care Physician No Primary Care Physician History of Present Illness This is an 81-year-old male who has had multiple readmissions over the past few months for a recurrent right-sided pleural effusion. He represents from his long-term facility with recurrent right-sided pleural effusion as well as hypoxia and somnolence. He was found to have significant hypercarbia and a PCO2 in the 90s. He was initially placed on BiPAP and admitted to the [facility]. He became more somnolent and his oxygen saturation began to decline. At this point a critical care medicine is consulted to evaluate and manage his hypercarbic respiratory failure. Because he is failed his trial of noninvasive positive pressure ventilation, we will move towards intubating the patient. I evaluated the patient and he is essentially unresponsive and obtunded and only minimally withdrawing to pain. I can obtain no additional history from the patient. Review of Systems ROS Limitations: Clinical Condition, Altered Mental Status Past Family Social History Allergies: Coded Allergies: No Known Allergies (Verified , 11/07/16) Past Medical History Unobtainable secondary to the clinical condition of the patient. Per chart review: Recent hospitalization from 10/06/16-10/20/16 due to respiratory failure from pleural effusions status post chest tube placement, followed by pleurodesis with talc on October 16, 2016. Patient was evaluated by cardiothoracic surgeon and he is not a candidate for decortication/aggressive measures. Recent right pneumothoraxwhich developed post thoracocentesis COPDwith chronic CO2 retention Diastolic heart failure Cor pulmonale/pulmonary hypertension of 85 mmHg Severe tricuspid regurgitation Hypertension Atrial fibrillation Chronic anticoagulation on Coumadin Severe Protein calorie malnutrition Past Surgical History Unobtainable secondary to the clinical condition of the patient. Reported Medications Unobtainable secondary to the clinical condition of the patient. Active Ordered Medications See MAR Family History Unobtainable secondary to the clinical condition of the patient. Social History Unobtainable secondary to the clinical condition of the patient. Physical Exam Vital Signs Vital Signs Date Time Temp Pulse Resp B/P Pulse Ox O2 Delivery O2 Flow Rate FiO2 11/08/16 03:00 98.0 95 19 156/77 94 11/08/16 03:00 94 11/08/16 02:39 96 BiPAP 35 11/08/16 02:30 96 35 11/08/16 02:00 84 11/08/16 01:00 84 11/08/16 00:00 98.1 95 19 153/64 94 11/08/16 00:00 101 11/07/16 20:45 90 22 98 Nasal Cannula 6 11/07/16 20:44 88 Nasal Cannula 4 11/07/16 20:09 34 100 Nasal Cannula 6 11/07/16 19:58 87 34 98 Nasal Cannula 6 11/07/16 19:55 97.5 109 32 164/84 99 Physical Exam GENERAL: Frail, elderly male, cachectic, in visible respiratory distress HEENT: Normocephalic. Atraumatic. Pupils equal, round, reactive, conjugate. Mucous membranes are dry. NECK: Trachea is midline. JVD difficult to assess due to BiPAP in place. CHEST: Equal chest rise. Distant breath sounds. Breath sounds are much more decreased on the right than the left. Barrel chested. Somewhat labored. CARDIOVASCULAR: Normal rate, regular rhythm. No appreciable murmurs. ABDOMEN: After, nontender, nondistended. No guarding. MUSCULOSKELETAL: 1+ peripheral edema. Distal pulses 2+ NEUROLOGICAL: RASS -4. Obtunded. Only minimally arousable to deep sternal rub. Very weakly withdraws 4 Laboratory Laboratory Tests Test 11/07/16 11/07/16 11/07/16 11/08/16 20:01 20:10 22:00 02:03 Blood Gas Puncture Site LT RADIAL RT RADIAL Blood Gas Patient Temperature 98.6 98.6 Blood Gas HCO3 44 42 Blood Gas Base Excess 17.3 15.2 Blood Gas Oxygen Saturation 97 94 Arterial Blood pH 7.32 7.28 Arterial Blood Partial 89 94 Pressure CO2 Arterial Blood Partial 126 93 Pressure O2 Arterial Blood Oxygen Content 16.1 19.6 Arterial Blood 1.5 2.1 Carboxyhemoglobin Arterial Blood Methemoglobin 0.3 1.0 Blood Gas Hemoglobin 11.7 14.8 Oxygen Delivery Device NASAL CANNULA NASAL CANNULA Blood Gas Liter Flow 6 3 White Blood Count 4.9 Red Blood Count 3.75 Hemoglobin 12.2 Hematocrit 38.3 Mean Corpuscular Volume 102.3 Mean Corpuscular Hemoglobin 32.5 Mean Corpuscular Hemoglobin 31.8 Concent Red Cell Distribution Width 15.5 Platelet Count 110 Mean Platelet Volume 8.5 Neutrophils (%) (Auto) 70.6 Lymphocytes (%) (Auto) 16.1 Monocytes (%) (Auto) 10.5 Eosinophils (%) (Auto) 2.0 Basophils (%) (Auto) 0.8 Neutrophils # (Auto) 3.5 Lymphocytes # (Auto) 0.8 Monocytes # (Auto) 0.5 Eosinophils # (Auto) 0.1 Basophils # (Auto) 0.0 CBC Comment DIFF FINAL Differential Comment Prothrombin Time 14.2 Prothromb Time International 1.3 Ratio Activated Partial 31.3 Thromboplast Time Sodium Level 143 Potassium Level 4.3 Chloride Level 97 Carbon Dioxide Level 42.2 Anion Gap 4 Blood Urea Nitrogen 12 Creatinine 0.65 Estimat Glomerular Filtration 118 Rate Random Glucose 80 Lactic Acid Level 1.0 Calcium Level 8.5 Total Bilirubin 0.6 Aspartate Amino Transf 28 (AST/SGOT) Alanine Aminotransferase 28 (ALT/SGPT) Alkaline Phosphatase 218 Total Creatine Kinase 27 Troponin I 0.02 Total Protein 6.4 Albumin 2.4 Thyroid Stimulating Hormone 1.460 3rd Gen Urine Color YELLOW Urine Turbidity CLEAR Urine pH 5.5 Urine Specific [place] GREATER THAN 1.050 Urine Protein TRACE Urine Glucose (UA) NEG Urine Ketones NEG Urine Occult Blood NEG Urine Nitrite NEG Urine Bilirubin NEG Urine Urobilinogen LESS THAN 2.0 Urine Leukocyte Esterase NEG Urine RBC 7 Urine WBC 1 Urine Mucus FEW Microscopic Urinalysis Comment CATH-CULT NOT IND Test 11/08/16 03:14 Blood Gas Puncture Site RT RADIAL Blood Gas Patient Temperature 98.6 Blood Gas HCO3 43 Blood Gas Base Excess 16.4 Blood Gas Oxygen Saturation 89 Arterial Blood pH 7.36 Arterial Blood Partial 78 Pressure CO2 Arterial Blood Partial 62 Pressure O2 Arterial Blood Oxygen Content 14.7 Arterial Blood 2.2 Carboxyhemoglobin Arterial Blood Methemoglobin 1.1 Blood Gas Hemoglobin 11.8 Oxygen Delivery Device BIPAP Blood Gas Ventilator Setting 15IPAP/5EPAP Blood Gas Inspired Oxygen 30 Date/Time Procedure Status Source Growth 11/07/16 20:10 Aerobic Blood Culture Received Blood Peripheral Pending 11/07/16 20:10 Anaerobic Blood Culture Received Blood Peripheral Pending Result Diagram: 11/07/16200911/07/162009 Imaging Last [address] 11/07/161955 Signed Impressions: Service Date/Time: October 20:38 - CONCLUSION: No acute intracranial abnormality demonstrated. Chronic white matter and old ischemic changes. Dhruv Foster MD Chest X-Ray 11/07/161955 Signed Impressions: Service Date/Time: October 20:54 - CONCLUSION: Worsening bilateral airspace disease and pleural effusions. Dhruv Foster MD Assessment and Plan Assessment and Plan Assessment: This is an 81-year-old male with history of prior recurrent right pleural effusions and COPD now presents with acute type II hypercarbic and hypoxic respiratory failure which has clearly failed noninvasive positive pressure ventilation. We will proceed with urgent endotracheal intubation for his type II respiratory failure. We will empirically cover him for a COPD exacerbation, as well as healthcare associated pneumonia given his history of being on Levaquin at his long-term facility. In addition, I will consult interventional radiology to drain his recurrent posterior right pleural effusion , as I think this is a component of his respiratory failure this point. He remains critically ill. I am not sure that we will be able to get him through this hospitalization, and his recurrent respiratory failures are clearly making him more deconditioned every time he comes in the hospital. Despite this, his daughter continues to progress for aggressive measures. Plan by systems: Neurologic: CO2 narcosis Metabolic encephalopathy Mild dementia Fentanyl for vent synchrony Hold long-acting sedating meds Respiratory: Acute hypercarbic and hypoxic respiratory failure Recurrent right pleural effusion Possible healthcare associated pneumonia COPD exacerbation Methylprednisolone 60 mg IV every 12 Nebs every 4 and every 2 when necessary Head of bed at 30 Vent bundle Wean FiO2 for goal SPO2 greater than 90% Does not meet SBT criteria today given altered mental status and hypoxia IR consult to drain recurrent right posterior pleural effusion Antibiotics as described below Cardiovascular: Hypertension Severe pulmonary hypertension Continue telemetry Continue home antihypertensives Diuresis as below Renal: We will need to place Vital for accurate I's and O's -- Strict I/Os FEN/GI: Acute intravascular volume overload Acute protein calorie malnutritionsevere Metabolic alkalosis Nothing by mouth Place orogastric tube ICU electrolyte protocol Lasix 40 mg IV twice a day Diamox 500 mg IV every 8 hours 3 doses Heme/ID: Possible healthcare associated pneumonia COPD exacerbation Daily CBC Does not meet transfusion triggers at this time Vancomycin with pharmacy dosing Cefepime Azithromycin Follow-up blood, sputum culture, urine cultures Endocrine: Hyperglycemia of critical illness -- SSI, medium scale, every 6 hours Prophylaxis: GI Prophylaxis Protonix 40 mg IV every 24 hours DVT Prophylaxis -- SCDs Subcutaneous heparin Lines: Peripheral IVs Vital May require central access. We'll reevaluate Dispo: Admitted to the ICU. He remains critically ill. This patient remains critically ill with one or more organ systems which are or may become a threat to life. I have spent in excess of 63 minutes discontinuously in the care and management of this patient. This time is exclusive of procedures, and includes, but is not limited to, evaluation of the patient, review of the medical record, discussions with family, consultants, nursing staff, or respiratory therapy, and documentation in the medical record. Code Status Full Code Jason Roldan MD Nov 08, 2016 03:49
[2016-11-08] MEDS: CHLORHEXIDINE GLUCONATE 2 % 1 PACK (2 CLOTHS)(taper/protocol) TOP SCH (04:00)
[2016-11-08] MEDS ORDERED: CHLORHEXIDINE GLUCONATE 2 % 1 PACK (2 CLOTHS)(extra cloths) TOP PRN (04:00)
[2016-11-08] MEDS ORDERED: VANCOMYCIN INJ 1,250 MG in SODIUM CHLOR 0.9% 250 ML INJ 250 ML IV ONE (04:13)
[2016-11-08] MEDS: RESP: ALBUTEROL 2.5 MG/IPRATROPIUM 0.5 MG NEB (SCH) INH ×4 (04:40→19:39)
[2016-11-08 05:13] LABS: BLOOD GAS BASE EXCESS 17.3 mmol/L (-2-2); BLOOD GAS CARBOXYHEMOGLOBIN 2.1 % (0-4); BLOOD GAS HCO3 44 mmol/L (22-26); BLOOD GAS O2 HGB SATURATION 95 % (90-100); BLOOD GAS OXYGEN CONTENT 15.2 Vol % (12.0-20.0); BLOOD GAS PCO2 84 mmHg (38-42); BLOOD GAS PO2 103 mmHg (61-120); BLOOD GAS TOTAL HGB 11.3 G/DL (12.0-16.0); CRITICAL VALUE YES; OXYGEN DEVICE BIPAP; TEMP CORR TO 98.6; VENT SETTINGS 15IPAP/5EPAP
[2016-11-08 05:14] LABS: DRAW SITE RT RADIAL; FIO2 45 %; NUMBER OF ARTERIAL PUNCTURES 1; STAT NO; ULNAR PULSE PRESENT
[2016-11-08] MEDS ORDERED: MIDAZOLAM HCL 5 MG/ML VIAL (1 ML) ONE (05:17)
[2016-11-08] MEDS ORDERED: ROCURONIUM INJ 50 MG/5 ML VIAL IV ONE (05:45)
[2016-11-08] MEDS ORDERED: MIDAZOLAM HCL 5 MG/ML VIAL (1 ML) IV PUSH ONE (05:45)
[2016-11-08] MEDS ORDERED: DEXTROSE 50% IN WATER 50 ML VIAL(D50) IV PUSH PRN (05:45)
--- NOTE | 2016-11-08 05:52 | PD.PROCEDR ---
Procedure Note Procedure Endotracheal Intubation Diagnosis: COPD exacerbation, possible healthcare associated pneumonia, recurrent right pleural effusion Indications: Hypoxic and hypercarbic respiratory failure Consent: Consent is deemed emergent or medically necessary Anesthesia: Versed 5 mg IV, rocuronium 50 mg IV Description of the Procedure: The patient was positioned in the sniffing position. Pre-oxygenation was performed using a 100% BiPAP. Anesthesia was induced. A Chaudhary #2 was used for laryngoscopy and a Grade IIB view was obtained with mild cricoid pressure. The patient has a moderate amount of contractures and arthritis which prevents full neck extension. A 8.5 cuffed endotracheal tube was inserted atraumatically through the vocal cords. Confirmation of correct endotracheal tube placement was made by equal and bilateral breath sounds and colorimetric CO2 detection. The endotracheal tube was secured at 23 cm at the teeth. There were no immediate complications noted. The patient remained hemodynamically stable throughout the procedure. A chest x-ray has been ordered. I personally performed the procedure. Jason Roldan MD Nov 08, 2016 05:52
[2016-11-08] MEDS: INSULIN NovoLIN REGULAR SUPPLEMENTAL SCALE SQ SCH ×3 (06:00→17:45)
[2016-11-08] MEDS: fentaNYL DRIP 250 ML IV SCH (06:06)
[2016-11-08] MEDS: CEFEPIME INJ 1,000 MG in SODIUM CHLORIDE 0.9% INJ 100 ML IV SCH ×3 (06:40→21:55)
--- NOTE | 2016-11-08 06:46 | RADRPT ---
EXAM DATE/TIME: 11/08/2016 06:12 [place] COMPARISON: CHEST SINGLE AP, November 07, 2016, 20:54. INDICATIONS : Evaluate for intubation. MEDICAL HISTORY : Chronic obstructive pulmonary disease. Congestive heart failure. SURGICAL HISTORY : None. ENCOUNTER: Subsequent ACUITY: 1 day PAIN SCORE: Non-responsive. LOCATION: chest FINDINGS: A single view of the chest demonstrates bibasilar airspace disease and effusions similar to November 07 considering differences in technique. No pneumothorax. CONCLUSION: 1. Endotracheal tube tip in satisfactory position. Basilar airspace disease and effusions similar to November 07. Chaka Campos MD on November 08, 2016 at 6:44 Board Certified Radiologist. This report was verified electronically.
[2016-11-08 06:50] LABS: BLOOD GAS BASE EXCESS 14.3 mmol/L (-2-2); BLOOD GAS CARBOXYHEMOGLOBIN 2.4 % (0-4); BLOOD GAS HCO3 39 mmol/L (22-26); BLOOD GAS O2 HGB SATURATION 94 % (90-100); BLOOD GAS OXYGEN CONTENT 14.8 Vol % (12.0-20.0); BLOOD GAS PCO2 51 mmHg (38-42); BLOOD GAS PO2 78 mmHg (61-120); BLOOD GAS TOTAL HGB 11.2 G/DL (12.0-16.0); TEMP CORR TO 98.6
[2016-11-08 06:51] LABS: CRITICAL VALUE YES
[2016-11-08 06:52] LABS: OXYGEN DEVICE VENTILATOR
[2016-11-08 06:53] LABS: DRAW SITE ART LINE; FIO2 45 %; STAT YES; VENT SETTINGS AC15/500/PEEP5
[2016-11-08 07:03] LABS: AUTOMATED NEUTROPHIL # 4.1 TH/MM3 (1.8-7.7); BASOPHIL % 0.3 % (0.0-2.0); EOSINOPHIL # 0.1 TH/MM3 (0-0.4); EOSINOPHIL % 1.9 % (0.0-4.0); HEMO FLAGS DIFF FINAL; LYMPH % 16.1 % (9.0-44.0); MEAN CELL VOLUME 101.1 FL (80.0-100.0); MEAN CORPUSCULAR HEMOGLOBIN 32.4 PG (27.0-34.0); MEAN CORPUSCULAR HGB CONC 32.1 % (32.0-36.0); MONO % 11.4 % (0.0-8.0); NEUT % 70.3 % (16.0-70.0); PLATELET COUNT 123 TH/MM3 (150-450); RED BLOOD COUNT 3.46 MIL/MM3 (4.50-5.90); RED CELL DISTRIBUTION WIDTH 15.3 % (11.6-17.2); WHITE BLOOD COUNT 5.9 TH/MM3 (4.0-11.0)
[2016-11-08 07:15] LABS: INTERNATIONAL NORMALIZED RATIO 1.2 RATIO; PROTHROMBIN TIME - PATIENT 13.8 SEC (9.8-11.6)
[2016-11-08 07:46] LABS: ALKALINE PHOSPHATASE 197 U/L (45-117); ALT (GPT) 26 U/L (12-78); ANION GAP 7 MEQ/L (5-15); AST (GOT) 26 U/L (15-37); BICARBONATE 42.5 MEQ/L (21.0-32.0); BLOOD UREA NITROGEN 13 MG/DL (7-18); CHLORIDE 98 MEQ/L (98-107); GLOMERULAR FILTRATION RATE 134 ML/MIN (>89); MAGNESIUM 1.9 MG/DL (1.5-2.5); POTASSIUM 3.3 MEQ/L (3.5-5.1); SODIUM (NA) 147 MEQ/L (136-145); TOTAL BILIRUBIN ADULT 0.8 MG/DL (0.2-1.0)
[2016-11-08] MEDS: CHLORHEXIDINE 0.12% (ORAL KIT) 15 ML CUP MT SCH ×2 (08:00→20:00)
[2016-11-08] MEDS: CAPTOPRIL 50 MG TAB PO SCH ×3 (08:00→16:30)
[2016-11-08] MEDS: SODIUM CHLORIDE 0.9% FLUSH 5 ML FLUSH FLUSH SCH ×2 (09:00→19:59)
[2016-11-08] MEDS: FUROSEMIDE 20 MG/2 ML VIAL IV PUSH SCH ×2 (09:00→17:44)
[2016-11-08] MEDS: methylPREDNISolone SOD SUCC 125 MG/2 ML VIAL IV PUSH SCH ×2 (09:00→19:59)
[2016-11-08] MEDS: ATENOLOL 50 MG TAB PO SCH ×2 (09:00→20:00)
[2016-11-08] MEDS ORDERED: FUROSEMIDE 20 MG TAB PO SCH (09:00)
[2016-11-08] MEDS ORDERED: LIDOCAINE 1%/EPINEPHrine 1:100,000 SOLN 20 ML VIAL ONE (09:58)
[2016-11-08 10:46] LABS: BLOOD, URINE TRACE (NEG); COMMENT (UR) CULT NOT INDICATED; CULTURE IF INDICATED CULT NOT INDICATED; GLUCOSE,URINE NEG (NEG); KETONE, URINE NEG (NEG); MUCUS URINE FEW /lpf (OCC); NITRITE,URINE NEG (NEG); PH, URINE 8.5 (5.0-8.5); URINE COLOR YELLOW (YELLW/STRAW)
[2016-11-08] MEDS ORDERED: MAGNESIUM SULFATE INJ 4 GM in SODIUM CHLORIDE 0.9% INJ 92 ML IV PRN (11:15)
[2016-11-08] MEDS ORDERED: SODIUM PHOSPHATE INJ 30 MMOL in SODIUM CHLOR 0.9% 250 ML INJ 240 ML IV PRN (11:15)
[2016-11-08] MEDS ORDERED: POTASSIUM PHOSPHATE INJ 30 MMOL in SODIUM CHLOR 0.9% 250 ML INJ 250 ML IV PRN (11:15)
[2016-11-08] MEDS ORDERED: POTASSIUM CHLOR 20 MEQ PREMIX 100 ML IV PRN ×2 (11:15)
[2016-11-08] MEDS ORDERED: POTASSIUM PHOSPHATE MONOBASIC 500 MG TAB PO PRN (11:15)
[2016-11-08] MEDS ORDERED: POTASSIUM PHOSPHATE MONOBASIC 500 MG TAB PO/TUBE PRN (11:15)
[2016-11-08] MEDS ORDERED: MAGNESIUM OXIDE 400 MG TAB PO PRN (11:15)
[2016-11-08] MEDS ORDERED: POTASSIUM CHLOR 40 MEQ PREMIX 100 ML IV PRN (11:15)
--- NOTE | 2016-11-08 11:15 | PD.PROCEDR ---
Procedure Note Procedure Diagnosis: Acute hypoxic/hypercarbic respiratory failure Indications: Same Consent: Emergent Anesthesia: Fentanyl infusion Description of the Procedure: The patient was placed in the supine, mild- Trendelenburg position. The area was prepped and draped sterilely. A left IJ was 1 unsuccessful attempt. A 19g needle was inserted under negative pressure aspiration and dark venous blood was obtained in the right IJ. A guidewire was inserted easily without resistance. A small incision was made using a #11 blade. Using a modified Seldinger technique, the dilator and 20 Chinese catheter were advanced over the guidewire without resistance. All ports were aspirated and flushed, and had brisk blood return. The line was secured at 17cm at the skin using 2-0 silk interrupted sutures. A Biopatch and Transparent sterile dressing were applied. There were no immediate complications noted. There was minimal EBL. The patient tolerated the procedure well. Right IJ for placement, and left IJ Ultrasound Guidance: Ultrasound guidance was used to identify the right IJ. The vascular anatomy was normal. The vessel was cannulated under direct, real-time ultrasound visualization. After placement of the guidewire, confirmation of the guidewire in the lumen of the vessel was made using ultrasound visualization, before dilation of the tract. A Chest x-ray has been ordered. I personally performed the procedure. Kathrine Gaspar MD Nov 08, 2016 11:15
--- NOTE | 2016-11-08 11:25 | RADRPT ---
EXAM DATE/TIME: 11/08/2016 09:42 [facility] COMPARISON: CHEST SINGLE AP, November 08, 2016, 6:12. INDICATIONS : Evaluate central line placement. MEDICAL HISTORY : Chronic obstructive pulmonary disease. Congestive heart failure SURGICAL HISTORY : None. ENCOUNTER: Subsequent ACUITY: 4 - 6 days PAIN SCORE: LOCATION: chest FINDINGS: On the initial image there appeared to be a prominent skinfold on the right. The image was repeated i n the skinfold was not reproduced. A pneumothorax is not seen. The ET tube tip is 3 cm from the itzel a. There is a right internal jugular central line in place with the tip overlying the SVC. The cardia c silhouette is enlarged. The lungs are show diffuse mixed interstitial nodule or consolidation. Ther e is increased density at the bases with silhouette of the hemidiaphragms bilaterally. CONCLUSION: 1. Right internal jugular central line in place without pneumothorax. 2. Enlargement of cardiac silhouette. 3. Diffuse consolidation bilaterally likely representing edema. Some degree of pleural effusions bila terally need to be considered. Dhruv Allen MD on November 08, 2016 at 11:22 Board Certified Radiologist. This report was verified electronically.
--- NOTE | 2016-11-08 15:35 | EKG ---
Date Performed: 11/07/2016 Time Performed: 18:15:35 PTAGE: 81 years EKG: ATRIAL FIBRILLATION INDETERMINATE AXIS RIGHT BUNDLE BRANCH BLOCK ABNORMAL ECG PREVIOUS TRACING : 11/06/2016 22.23 Compared to prior tracing no significant change DOCTOR: Yumiko Wolf Interpretating Date/Time 11/08/2016 15:33:41
[2016-11-08] MEDS: WARFARIN SOD 5 MG TAB PO SCH (16:00)
--- NOTE | 2016-11-08 16:12 | RADRPT ---
EXAM DATE/TIME: 11/08/2016 12:46 INDICATIONS : Recurrent pleural effusions. DEVICE(S): 1.) 8 Fr [place] FLUID: Total volume pa5391 cc of clear, yellow fluid was removed. Fluid was sent for laboratory ordered studies. MEDICAL HISTORY : Cardiovascular disease. Hypertension. Chronic obstructive pulmonary disease. Stroke. SURGICAL HISTORY : Right thoracentesis. ENCOUNTER: Initial ACUITY: 1 day PAIN SCORE: Non-responsive LOCATION: Right chest PROCEDURE: PROCEDURE : 1. CT guided chest tube placement. 2. Conscious sedation with continuous EKG and oximetry monitoring. The risks, benefits and alternatives to the procedure were explained and verbal and written consent w as obtained. The site was prepped in sterile fashion. Full sterile technique was used, including ca p, mask, sterile gloves and gown and a large sterile sheet. Hand hygiene and 2% chlorhexidine and/or betadine/alcohol prep was utilized per protocol for cutaneous antisepsis. The skin and subcutaneous tissues were infiltrated with local anesthetic solution. Using automated exposure control and adjus tment of the mA and/or kV according to patient size, radiation dose was kept as low as reasonably ach ievable to obtain optimal diagnostic quality images. With CT guidance the chest was punctured and the prescribed catheter was placed in the lung apex. Wal l suction was applied. Post procedure images demonstrate satisfactory position of the tube. The cat heter was sutured in place and a Percu-Stay was applied. Conscious sedation was performed with the prescribed dosages and duration as above. The patient dianne ated the procedure well and there were no complications. EKG and oximetry remained stable throughout the procedure. The patient was sent to post anesthesia recovery in stable condition. CONCLUSION: Uncomplicated right chest tube placement as above. 1500 cc of fluid removed and sent for culture. Post CT scan reveals a large. pleural rind . The rig ht lung may well not reexpanded. A.m. chest x-ray is pending. Cultures pending. Kun Mendoza MD FACR on November 08, 2016 at 16:07 Board Certified Radiologist. This report was verified electronically.
--- NOTE | 2016-11-08 19:35 | MB ---
cc: NICHOLE FALK DATE OF CONSULTATION 11/08/[address] Low REASON FOR CONSULTATION Pleural effusion and shortness breath. History of Present Illness Mr. Duncan is an 81-year-old male with history of COPD, atrial fibrillation, congestive heart failure. He had thoracentesis done in the past. The patient came to the hospital with worsening of his shortness of breath and decrease in mentation. He was admitted on the CICU, initially was tried on BiPap. He did not do well. He was transfused intensive care unit and he is intubated. He also has a right chest tube placed for thoracentesis. Currently, he is intubated and sedated. His blood gas on 45% assist control pH 7.49, pCO2 51, Po2 78, bicarb 39. His CBC showed WBC count 5.9, hemoglobin 11.2, hematocrit 35, MCV 101, platelet count 123. Sodium 147, potassium 3.2, chloride 90, CO2 42, BUN 13, creatinine 0.58. PAST MEDICAL HISTORY 1. History of pleural effusion, thoracentesis and pneumothorax in the past. 2. COPD, 3. Atrial fibrillation, 4. Congestive heart failure 5. Tricuspid regurgitation 6. Right knee surgery. MEDICATIONS Currently taking 1. Vancomycin IV. 2. Zithromax 500 mg a day 3. Coumadin 5 mg a day. 4. Potassium supplement. 5. Lasix 20 mg twice a day 6. Atenolol 50 mg twice a day 7. Solu-Medrol 60 mg q. 12-hour 8. Capoten 50 mg three times a day 9. Cefepime 1 gram q. 8-hour. 10. Albuterol/Atrovent nebulizer treatment ALLERGIES NO KNOWN DRUG ALLERGIES. SOCIAL HISTORY/FAMILY HISTORY Not available. PHYSICAL EXAMINATION GENERAL: Elderly male intubated and sedated. He is currently on assist control FIO2 45%. Chest tube is draining. VITAL SIGNS: Blood pressure is 129/70, heart rate 98, respirations 20, temperature 98.1 HEENT: Pupils are equal and react to light. Oral mucosa, nasal mucosa normal. He is orally intubated. NECK: Supple. JVP not raised. CHEST: He has rales at the bases, has right chest tube draining. CARDIOVASCULAR: S1, S2 normal. ABDOMEN: Benign. EXTREMITIES: No edema. IMPRESSION 1. Ventilator dependent respiratory failure. 2. Pleural effusion status post chest tube placement. 3. Congestive heart failure. 4. Atrial fibrillation. PLAN The patient will be maintained on the ventilator. Continue chest tube to drain. Once the fluid is drained, he will need pleurodesis because of the recurrent pleural effusion. Continue present antibiotic and aerosol treatment. Monitor electrolytes. Further treatment will depend on the course in the hospital. Thank you, Dr. Low, for this consultation. MD ZHENG Zavala/SA /6:57 PM /7:22 PM
[2016-11-08] MEDS: AZITHROMYCIN INJ 500 MG in SODIUM CHLOR 0.9% 250 ML INJ 250 ML IV SCH (19:59)
[2016-11-08] MEDS: VANCOMYCIN INJ 1,250 MG in SODIUM CHLOR 0.9% 250 ML INJ 250 ML IV SCH (23:48)
[2016-11-09] VITALS (20 sets, daily range): BP systolic 103–170; BP diastolic 20–95; PULSE 85–127; RESP 20–24; TEMP 97.2–98.7; O2SAT 94–99
[2016-11-09] MEDS: fentaNYL DRIP 250 ML IV SCH ×3 (00:34→15:15)
[2016-11-09] MEDS ORDERED: LORazepam 2 MG/ML VIAL IV ONE (01:15)
[2016-11-09] MEDS: RESP: ALBUTEROL 2.5 MG/IPRATROPIUM 0.5 MG NEB (SCH) INH ×7 (02:22→23:29)
[2016-11-09 03:52] LABS: INTERNATIONAL NORMALIZED RATIO 1.1 RATIO; PROTHROMBIN TIME - PATIENT 12.7 SEC (9.8-11.6)
[2016-11-09 03:53] LABS: HEMATOCRIT 34.4 % (39.0-51.0); MEAN CELL VOLUME 99.9 FL (80.0-100.0); MEAN CORPUSCULAR HEMOGLOBIN 32.5 PG (27.0-34.0); MEAN CORPUSCULAR HGB CONC 32.5 % (32.0-36.0); PLATELET COUNT 140 TH/MM3 (150-450); RED BLOOD COUNT 3.45 MIL/MM3 (4.50-5.90); RED CELL DISTRIBUTION WIDTH 15.4 % (11.6-17.2); REVIEW FLAG FINAL; WHITE BLOOD COUNT 7.1 TH/MM3 (4.0-11.0)
[2016-11-09] MEDS: CHLORHEXIDINE GLUCONATE 2 % 1 PACK (2 CLOTHS)(taper/protocol) TOP SCH (04:00)
[2016-11-09 04:06] LABS: BICARBONATE 31.9 MEQ/L (21.0-32.0); POTASSIUM 3.2 MEQ/L (3.5-5.1)
[2016-11-09] MEDS: POTASSIUM CHLOR 40 MEQ PREMIX 100 ML IV PRN ×2 (04:31→06:11)
--- NOTE | 2016-11-09 04:31 | RADRPT ---
EXAM DATE/TIME: 11/09/2016 01:46 [facility] COMPARISON: CHEST SINGLE AP, November 08, 2016, 9:42. INDICATIONS : Shortness of breath, possible pulmonary disease. MEDICAL HISTORY : Chronic obstructive pulmonary disease. Congestive heart failure. SURGICAL HISTORY : None. ENCOUNTER: Subsequent ACUITY: 4 - 6 days PAIN SCORE: 1/10 LOCATION: Bilateral chest FINDINGS: Small caliber right chest tube present with tiny right basilar pneumothorax. No significant right ple ural effusion. There is a small to moderate left effusion with basilar airspace disease. Endotracheal tube in satisfactory position. NG enters stomach. Right central line in superior vena cava. CONCLUSION: 1. Right chest tube present with tiny right basilar pneumothorax. No right effusion. Small to moderat e left effusion with basilar airspace disease. Support apparatus unchanged. Chaka Campos MD on November 09, 2016 at 4:26 Board Certified Radiologist. This report was verified electronically.
[2016-11-09 05:13] LABS: BLOOD GAS BASE EXCESS 2.4 mmol/L (-2-2); BLOOD GAS CARBOXYHEMOGLOBIN 1.2 % (0-4); BLOOD GAS HCO3 28 mmol/L (22-26); BLOOD GAS METHEMOGLOBIN 1.1 % (0-2); BLOOD GAS O2 HGB SATURATION 97 % (90-100); BLOOD GAS OXYGEN CONTENT 16.1 Vol % (12.0-20.0); BLOOD GAS PCO2 58 mmHg (38-42); BLOOD GAS PO2 177 mmHg (61-120); BLOOD GAS TOTAL HGB 11.6 G/DL (12.0-16.0); TEMP CORR TO 98.6
[2016-11-09 05:14] LABS: CRITICAL VALUE YES; OXYGEN DEVICE VENTILATOR
[2016-11-09 05:15] LABS: DRAW SITE ART LINE; FIO2 50 %; STAT NO; VENT SETTINGS PRVC/AC
[2016-11-09] MEDS: NOREPINEPHRINE 4 MG/D5W 250 ML IV SCH ×2 (05:45→11:53)
[2016-11-09] MEDS: CEFEPIME INJ 1,000 MG in SODIUM CHLORIDE 0.9% INJ 100 ML IV SCH ×3 (05:45→22:47)
[2016-11-09] MEDS: INSULIN NovoLIN REGULAR SUPPLEMENTAL SCALE SQ SCH ×4 (05:46→17:49)
[2016-11-09] MEDS: LORazepam 2 MG/ML VIAL IV PUSH PRN ×5 (06:11→18:35)
[2016-11-09] MEDS: CAPTOPRIL 50 MG TAB PO SCH (08:00)
[2016-11-09] MEDS: CHLORHEXIDINE 0.12% (ORAL KIT) 15 ML CUP MT SCH ×2 (08:15→21:19)
[2016-11-09] MEDS: SODIUM CHLORIDE 0.9% FLUSH 5 ML FLUSH FLUSH SCH ×2 (08:15→21:19)
[2016-11-09] MEDS: methylPREDNISolone SOD SUCC 125 MG/2 ML VIAL IV PUSH SCH ×2 (08:15→21:19)
[2016-11-09] MEDS: SODIUM CHLORIDE 0.9% FLUSH 5 ML FLUSH IVF SCH (08:15)
[2016-11-09] MEDS: SODIUM CHLORIDE 0.9% FLUSH 5 ML FLUSH IVF PRN (08:15)
[2016-11-09] MEDS: FUROSEMIDE 20 MG/2 ML VIAL IV PUSH SCH ×2 (08:16→17:49)
[2016-11-09] MEDS: ATENOLOL 50 MG TAB PO SCH (08:16)
--- NOTE | 2016-11-09 10:42 | RADRPT ---
EXAM DATE/TIME: 11/09/2016 10:29 [facility] COMPARISON: CT BRAIN W/O CONTRAST, November 07, 2016, 20:38. INDICATIONS : New onset of seizure activity. RADIATION DOSE: 45.64 CTDIvol (mGy) MEDICAL HISTORY : Stroke. SURGICAL HISTORY : None. ENCOUNTER: Initial ACUITY: 1 day PAIN SCALE: Non-responsive LOCATION: cranial TECHNIQUE: Multiple contiguous axial images were obtained of the head. Using automated exposure control and adj ustment of the mA and/or kV according to patient size, radiation dose was kept as low as reasonably a chievable to obtain optimal diagnostic quality images. FINDINGS: CEREBRUM: The ventricles are normal for age. There is stable bilateral cortical atrophy. There is an old stable lacunar infarct in the right basal ganglia. No evidence of midline shift, mass lesion, hemorrhage o r acute infarction. No extra-axial fluid collections are seen. POSTERIOR FOSSA: The cerebellum and brainstem are intact. The 4th ventricle is midline. The cerebellopontine angle i s unremarkable. EXTRACRANIAL: The visualized portion of the orbits is intact. SKULL: The calvaria is intact. No evidence of skull fracture. No new or significant changes compared to the prior study. CONCLUSION: Stable CT scan of the brain. Pradeep Rodriguez MD on November 09, 2016 at 10:38 Board Certified Radiologist. This report was verified electronically.
--- NOTE | 2016-11-09 11:22 | HHI.CCPN ---
Subjective Remarks/Hospital Course This is an 81-year-old male who has had multiple readmissions over the past few months for a recurrent right-sided pleural effusion. He represents from his detention facility with recurrent right-sided pleural effusion as well as hypoxia and somnolence. He was found to have significant hypercarbia and a PCO2 in the 90s. He was initially placed on BiPAP and admitted to the [facility]. He became more somnolent and his oxygen saturation began to decline. At this point a critical care medicine is consulted to evaluate and manage his hypercarbic respiratory failure. Because he is failed his trial of noninvasive positive pressure ventilation, we will move towards intubating the patient. I evaluated the patient and he is essentially unresponsive and obtunded and only minimally withdrawing to pain. I can obtain no additional history from the patient. Subjective: 11/09: Early this a.m. at approximately 06:30 the patient was noted to have a grand mal seizure lasting approximately 60 seconds followed by a small tonic- clonic seizure lasting 30 seconds involving the lower extremities. The patient received Ativan 2 mg with cessation of seizure activity. Stat CT of the brain without contrast was obtained showed no acute abnormality. EEG was obtained previously awaiting results. Prior to the event the patient was noted to be on a fentanyl infusion at approximately 250 mcg/h. The patient was noted to be a GCS 10 T prior to this. Objective Vital Signs Date Time Temp Pulse Resp B/P Pulse Ox O2 Delivery O2 Flow Rate FiO2 11/09/16 10:54 99 100 11/09/16 08:00 98.7 89 20 151/69 136/48 11/08/16 02:39 BiPAP 11/07/16 20:45 6 Intake and Output 11/08/16 11/08/16 11/09/16 08:00 16:00 00:00 Intake Total 320 ml 464 ml 683 ml Output Total 1525 ml 1050 ml 750 ml Balance -1205 ml -586 ml -67 ml Result Diagram: 11/09/16 0325 11/09/16 0325 Other Results Laboratory Tests Test 11/09/16 05:04 Blood Gas Puncture Site ART LINE Blood Gas Patient Temperature 98.6 Blood Gas HCO3 28 mmol/L (22-26) Blood Gas Base Excess 2.4 mmol/L (-2-2) Blood Gas Oxygen Saturation 97 % (90-100) Arterial Blood pH 7.31 (7.380-7.420) Arterial Blood Partial 58 mmHg (38-42) Pressure CO2 Arterial Blood Partial 177 mmHg Pressure O2 (61-120) Arterial Blood Oxygen Content 16.1 Vol % (12.0-20.0) Arterial Blood 1.2 % (0-4) Carboxyhemoglobin Arterial Blood Methemoglobin 1.1 % (0-2) Blood Gas Hemoglobin 11.6 G/DL (12.0-16.0) Oxygen Delivery Device VENTILATOR Blood Gas Ventilator Setting PRVC/AC Blood Gas Inspired Oxygen 50 % Imaging Last [address] 11/07/161955 Signed Impressions: Service Date/Time: October 20:38 - CONCLUSION: No acute intracranial abnormality demonstrated. Chronic white matter and old ischemic changes. Dhruv Foster MD Chest X-Ray 11/07/161955 Signed Impressions: Service Date/Time: October 20:54 - CONCLUSION: Worsening bilateral airspace disease and pleural effusions. Dhruv Foster MD Objective Remarks GENERAL: This is a elderly critically ill-appearing cachectic male, intubated and asleep HEENT: Normocephalic. Atraumatic. Pupils equal, round, reactive. Mucous membranes are moist and pink. NECK: Trachea is midline. No JVD. Orotracheally intubated CHEST: Right sided chest tube connected to pleural vac at 40 cm of water pressure .Distant breath sounds. Serous fluid noted CARDIOVASCULAR: Normal rate, regular rhythm. No appreciable murmurs. ABDOMEN: After, nontender, nondistended. No guarding. MUSCULOSKELETAL: 1+ peripheral edema. Distal pulses 2+ NEUROLOGICAL: RASS -4. GCS 3T. Patient status post Ativan 2 mg IV for witnessed seizure activity. Urinary Catheter: Yes Vital insert reason: Measure Accurate Output Date of Insertion: Nov 08, 2016 Vascular Central Line Catheter: Yes Assessment to: Continue Side: Right Location: Internal, Jugular Reason for Continuation Vasoactive medications A/P Assessment and Plan Assessment: This is an 81-year-old male with history of prior recurrent right pleural effusions and COPD now presents with acute type II hypercarbic and hypoxic respiratory failure which has clearly failed noninvasive positive pressure ventilation. We will proceed with urgent endotracheal intubation for his type II respiratory failure. We will empirically cover him for a COPD exacerbation, as well as healthcare associated pneumonia given his history of being on Levaquin at his detention facility. In addition, I will consult interventional radiology to drain his recurrent posterior right pleural effusion , as I think this is a component of his respiratory failure this point. He remains critically ill. I am not sure that we will be able to get him through this hospitalization, and his recurrent respiratory failures are clearly making him more deconditioned every time he comes in the hospital. Despite this, his daughter continues to progress for aggressive measures. Plan by systems: Neurologic: CO2 narcosis Metabolic encephalopathy Mild dementia\ New onset seizure activity Fentanyl infusion , low-dose for vent synchrony -Ativan for seizures -Neurology consulted -CT of the brain-no acute abnormality -EEG-results pending Respiratory: Acute hypercarbic and hypoxic respiratory failure Recurrent right pleural effusion Possible healthcare associated pneumonia COPD exacerbation Methylprednisolone 60 mg IV every 12 Nebs every 4 and every 2 when necessary Head of bed at 30 Vent bundle Wean FiO2 for goal SPO2 greater than 90% Does not meet SBT criteria today given altered mental status and hypoxia S/P CT guided IR drainage of recurrent right posterior pleural effusion, unable to perform pleurodesis, maintain 40cm of suction to pleuravac Antibiotics as described below Cardiovascular: Hypertension Severe pulmonary hypertension Continue telemetry Continue home antihypertensives Diuresis as below Renal: Maintain Vital for accurate -- Strict I/Os FEN/GI: Acute intravascular volume overload Acute protein calorie malnutritionsevere Metabolic alkalosis Continue tube feeds, Jevity 1.5 goal rate 60 cc/hour ICU electrolyte protocol Lasix 40 mg IV twice a day Diamox 500 mg IV every 8 hours 3 doses Heme/ID: Possible healthcare associated pneumonia COPD exacerbation Daily CBC Does not meet transfusion triggers at this time Vancomycin with pharmacy dosing Cefepime Azithromycin 11/08 blood, sputum culture, urine cultures-NGTD Endocrine: Hyperglycemia of critical illness -- SSI, medium scale, every 6 hours Prophylaxis: GI Prophylaxis Protonix 40 mg IV every 24 hours DVT Prophylaxis -- SCDs Patient on Coumadin Lines: Peripheral IVs Vital May require central access. We'll reevaluate Dispo: Discussed medical update with daughter by telephone, spoke with [employer] TRIMMER at bedside This patient remains critically ill with one or more organ systems which are or may become a threat to life. I have spent in excess of 55 minutes discontinuously in the care and management of this patient. This time is exclusive of procedures, and includes, but is not limited to, evaluation of the patient, review of the medical record, discussions with family, consultants, nursing staff, or respiratory therapy, and documentation in the medical record. Physician Kathrine Childers MD Nov 09, 2016 11:22
--- NOTE | 2016-11-09 12:05 | MG ---
cc: HERMELINDA MERCADO MD Lab No: [id number] Date: 11/09/16 Age: 81 Sex: M Race: DATE OF : 1935 HISTORY An 81-year-old with a history of respiratory distress, seizure activity, given Ativan, intubated and sedated on fentanyl. DESCRIPTION OF RECORD Generalized slowing 1-3 Hz with occasional bursts of theta 20-50 microvolts. Mild myogenic artifact in the frontal channels. No driving with photic stimulation. Single-lead EKG showing sinus rhythm. INTERPRETATION Moderate to severe encephalopathy. No active seizures noted. Clinical correlation. MD SHANNAN Turner/BJF /11:06 AM /11:55 AM
--- NOTE | 2016-11-09 15:43 | HHI.PR ---
Subjective Remarks 81 YOWM with VDRF,Pl effusion Right chest tube draining had brief witnessed sz had 2 mg Ativan On PRVC AC Objective Vital Signs Vital Signs Date Time Temp Pulse Resp B/P Pulse Ox O2 Delivery O2 Flow Rate FiO2 11/09/16 15:08 98 40 11/09/16 14:00 93 11/09/16 12:00 92 11/09/16 12:00 97.9 92 22 130/60 95 115/56 11/09/16 12:00 40 11/09/16 11:08 96 45 11/09/16 10:54 99 100 11/09/16 10:00 85 11/09/16 08:00 50 11/09/16 08:00 98.7 89 20 151/69 97 136/48 11/09/16 08:00 89 11/09/16 07:22 96 40 11/09/16 06:00 127 11/09/16 04:02 98 50 11/09/16 04:00 110 11/09/16 04:00 55 11/09/16 04:00 98.1 110 20 106/22 98 103/45 11/09/16 02:00 104 11/09/16 01:02 97 50 11/09/16 00:00 55 11/09/16 00:00 113 11/09/16 00:00 97.8 113 24 166/95 96 154/68 11/08/16 23:10 97 50 11/08/16 22:00 108 11/08/16 20:00 97.6 108 20 158/73 97 134/62 11/08/16 20:00 108 11/08/16 20:00 50 11/08/16 19:39 97 50 11/08/16 18:00 106 11/08/16 16:00 50 11/08/16 16:00 100 11/08/16 16:00 98.1 100 20 129/70 98 I/O 11/08/16 11/08/16 11/08/16 11/09/16 11/09/16 11/09/16 07:00 15:00 23:00 07:00 15:00 23:00 Intake Total 320 ml 464 ml 683 ml 796 ml 1035 ml Output Total 1525 ml 1050 ml 750 ml 450 ml 905 ml Balance -1205 ml -586 ml -67 ml 346 ml 130 ml Intake IV Total 320 ml 464 ml 683 ml 796 ml 725 ml Tube Feeding 210 ml Tube Irrigant 100 ml Output Urine Total 1525 ml 1050 ml 750 ml 300 ml 875 ml Stool Total 0 ml 0 ml Chest Tube Drainage Total 150 ml 30 ml # Bowel Movements 0 0 Result Diagram: 11/09/1632411/09/16324 Objective Remarks GENERAL: Elderly male, On Vent SKIN: Warm and dry. HEAD: Normocephalic. EYES: No scleral icterus. No injection or drainage. NECK: Supple, trachea midline. No JVD or lymphadenopathy. CARDIOVASCULAR: Regular rate and rhythm without murmurs, gallops, or rubs. RESPIRATORY: Breath sounds equal bilaterally. No accessory muscle use. Right chest tube draining GASTROINTESTINAL: Abdomen soft, non-tender, nondistended. MUSCULOSKELETAL: No cyanosis, or edema. BACK: Nontender without obvious deformity. No CVA tenderness. A/P Assessment and Plan VDRF Pleural effusion, s/p right chest tube Sz/ Encephalopathy AF CHF PLAN: Cont Vent support Chest tube to drain Will need Pleurodesis before pulling chest tube. Cont Abx On Coumadin, monitor INR Ash Valenzuela MD Nov 09, 2016 15:42
[2016-11-09] MEDS: WARFARIN SOD 5 MG TAB PO SCH (16:10)
[2016-11-09] MEDS: VANCOMYCIN INJ 1,250 MG in SODIUM CHLOR 0.9% 250 ML INJ 250 ML IV SCH (16:11)
--- NOTE | 2016-11-09 20:59 | MB ---
cc: WILFRID STEPHENSON MD DATE OF CONSULTATION 11/09/16 REASON FOR CONSULTATION Possible seizures. HISTORY OF PRESENT ILLNESS The patient is sedated and vented hence the medical information is obtained from the medical records and from his daughter who is at the bedside and the nurse. Mr. Duncan is an 81-year-old male who has had multiple recurrent admissions for right-sided pleural effusion. He resides in a group home facility and he was noted to have difficulty breathing and somnolence. He was admitted to the hospital, initially placed on BiPap and then admitted to the ICU and he was intubated because of hypercarbia and respiratory failure. Earlier this morning he was noted to have had body shaking of both extremities, lower extremities and shaking of the hands with stiffness of the body and eye rolling upwards noted by his daughter last night and this morning by the nurse. He received Ativan [address] of the brain revealed no acute abnormality. REVIEW OF SYSTEMS Unable to obtain. PAST MEDICAL HISTORY Unable to obtain but according to medical records hospitalization due to respiratory failure from a pleural effusion status post chest tube replacement and pleurodesis in September 2016. COPD, diastolic heart failure, cor pulmonale, severe tricuspid regurgitation, hypertension, atrial fibrillation, anticoagulation on Coumadin and severe protein calorie malnutrition. PAST SURGICAL HISTORY Thoracocentesis, chest tube placement, right eye surgery and right knee surgery. ALLERGIES No known allergies. FAMILY HISTORY Unable to obtain. SOCIAL HISTORY No history of alcohol, drug or tobacco abuse. PHYSICAL EXAMINATION GENERAL: The patient is vented and sedated, well-developed. HEENT: Atraumatic, normocephalic. No conjunctival injection. NECK: No carotid bruit. CARDIOVASCULAR: Regular rate and rhythm. LUNGS: Respiration bilateral decreased air entry with scattered wheezes. NEUROLOGICAL: Vented and sedated. Pupils are 1 mm bilateral, sluggishly responding to light. No gaze deviation. Plantars are bilateral, mute. DIAGNOSTICS IMAGING STUDIES - Head CT scan without contrast reported as stable with no acute intracranial abnormality. - EEG on 11/09/2016 was reported with moderate to severe encephalopathy. No active seizures noted. DIAGNOSTIC IMPRESSION Possible seizures. May be related to hypoxia, however, EEG and head CT scan are unremarkable. PLAN Neuro checks q. one hourly. No indication to start antiseizure medication. May repeat EEG if another spell is reported/witnessed. DVT prophylaxis. Seizure prophylaxis. Thank you for the opportunity to participate in the care of your patient. MD ADAL Nix/DANY /8:31 PM /8:47 PM SHARLENE
[2016-11-09] MEDS: AZITHROMYCIN INJ 500 MG in SODIUM CHLOR 0.9% 250 ML INJ 250 ML IV SCH (21:19)
[2016-11-10] VITALS (18 sets, daily range): BP systolic 107–150; BP diastolic 42–83; PULSE 80–129; RESP 22; TEMP 94–98.6; O2SAT 95–98
[2016-11-10] MEDS: POTASSIUM CHLOR 40 MEQ PREMIX 100 ML IV PRN ×2 (00:39→03:19)
[2016-11-10] MEDS: RESP: ALBUTEROL 2.5 MG/IPRATROPIUM 0.5 MG NEB (SCH) INH ×6 (03:06→23:19)
[2016-11-10] MEDS: LORazepam 2 MG/ML VIAL IV PUSH PRN ×2 (03:14→09:45)
[2016-11-10] MEDS: CHLORHEXIDINE GLUCONATE 2 % 1 PACK (2 CLOTHS)(taper/protocol) TOP SCH (04:00)
--- NOTE | 2016-11-10 05:12 | RADRPT ---
EXAM DATE/TIME: 11/10/2016 02:49 [facility] COMPARISON: CHEST EXPIRATION ONLY, November 09, 2016, 1:46. CHEST SINGLE AP, November 08, 2016, 9:42. INDICATIONS : Shortness of breath, possible pulmonary disease. MEDICAL HISTORY : Chronic obstructive pulmonary disease. Congestive heart failure. SURGICAL HISTORY : None. ENCOUNTER: Subsequent ACUITY: 1 week PAIN SCORE: Non-responsive. LOCATION: Bilateral chest FINDINGS: Endotracheal tube tip in satisfactory position. NG enters stomach. Right central line in superior munir a cava. Left basilar airspace disease and effusion stable from November 09. Small caliber right chest tu be remains present with small right basilar pneumothorax. CONCLUSION: 1. Small caliber right chest tube present with resolution of previous right pleural effusion. There i s a small right-sided basilar pneumothorax. 2. Left basilar airspace disease and effusion not significantly changed since November 09. Chaka Campos MD on November 10, 2016 at 5:08 Board Certified Radiologist. This report was verified electronically.
[2016-11-10 07:11] LABS: MEAN CELL VOLUME 99.3 FL (80.0-100.0); MEAN CORPUSCULAR HGB CONC 33.2 % (32.0-36.0); PLATELET COUNT 167 TH/MM3 (150-450); RED BLOOD COUNT 3.42 MIL/MM3 (4.50-5.90); REVIEW FLAG FINAL; WHITE BLOOD COUNT 13.4 TH/MM3 (4.0-11.0)
[2016-11-10] MEDS: CEFEPIME INJ 1,000 MG in SODIUM CHLORIDE 0.9% INJ 100 ML IV SCH ×3 (07:24→22:33)
[2016-11-10] MEDS: INSULIN NovoLIN REGULAR SUPPLEMENTAL SCALE SQ SCH ×4 (07:24→17:39)
[2016-11-10 07:40] LABS: BICARBONATE 28.9 MEQ/L (21.0-32.0); MAGNESIUM 2.2 MG/DL (1.5-2.5); POTASSIUM 4.5 MEQ/L (3.5-5.1)
[2016-11-10] MEDS: CHLORHEXIDINE 0.12% (ORAL KIT) 15 ML CUP MT SCH ×2 (07:45→22:34)
[2016-11-10] MEDS: NOREPINEPHRINE 4 MG/D5W 250 ML IV SCH (07:46)
[2016-11-10 08:17] LABS: APTT (PATIENT) 31.3 SEC (24.3-30.1); INTERNATIONAL NORMALIZED RATIO 1.6 RATIO; PROTHROMBIN TIME - PATIENT 17.6 SEC (9.8-11.6)
[2016-11-10] MEDS: FUROSEMIDE 20 MG/2 ML VIAL IV PUSH SCH (09:32)
[2016-11-10] MEDS: methylPREDNISolone SOD SUCC 125 MG/2 ML VIAL IV PUSH SCH ×2 (09:32→22:32)
[2016-11-10] MEDS: SODIUM CHLORIDE 0.9% FLUSH 5 ML FLUSH IVF SCH (09:32)
[2016-11-10] MEDS: SODIUM CHLORIDE 0.9% FLUSH 5 ML FLUSH FLUSH SCH ×2 (09:32→22:33)
[2016-11-10] MEDS ORDERED: ALBUMIN HUMAN 5% 25 GM/500 ML BOTTLE IV ONE (10:30)
[2016-11-10] MEDS ORDERED: MIDAZOLAM 100 MG/ML INJ 100 ML IV SCH (10:30)
[2016-11-10] MEDS ORDERED: PHARMACY ORDERED LAB XX ONE (10:45)
[2016-11-10] MEDS: VANCOMYCIN INJ 1,250 MG in SODIUM CHLOR 0.9% 250 ML INJ 250 ML IV SCH (11:30)
--- NOTE | 2016-11-10 15:50 | HHI.CCPN ---
Subjective Remarks/Hospital Course This is an 81-year-old male who has had multiple readmissions over the past few months for a recurrent right-sided pleural effusion. He represents from his snf facility with recurrent right-sided pleural effusion as well as hypoxia and somnolence. He was found to have significant hypercarbia and a PCO2 in the 90s. He was initially placed on BiPAP and admitted to the [facility]. He became more somnolent and his oxygen saturation began to decline. At this point a critical care medicine is consulted to evaluate and manage his hypercarbic respiratory failure. Because he is failed his trial of noninvasive positive pressure ventilation, we will move towards intubating the patient. I evaluated the patient and he is essentially unresponsive and obtunded and only minimally withdrawing to pain. I can obtain no additional history from the patient. Subjective: 11/09: Early this a.m. at approximately 06:30 the patient was noted to have a grand mal seizure lasting approximately 60 seconds followed by a small tonic- clonic seizure lasting 30 seconds involving the lower extremities. The patient received Ativan 2 mg with cessation of seizure activity. Stat CT of the brain without contrast was obtained showed no acute abnormality. EEG was obtained previously awaiting results. Prior to the event the patient was noted to be on a fentanyl infusion at approximately 250 mcg/h. The patient was noted to be a GCS 10T, squeezing my hand. 11/10: The patient was noted to have multiple seizures requiring interventions with IV Ativan. Described as tonic-clonic in nature with eyes rolled back in the head. Gross motor movement shaking 4 extremities. Today the patient was noted to have a positive growth and blood cultures. WBC count elevated. Ammonia level was drawn less than 10, lactate was noted to be 2.2 this morning. Pleural fluid culture negative growth to date. Objective Vital Signs Date Time Temp Pulse Resp B/P Pulse Ox O2 Delivery O2 Flow Rate FiO2 11/10/16 14:00 106 11/10/16 12:00 40 11/10/16 12:00 98.5 22 145/73 95 137/55 11/08/16 02:39 BiPAP 11/07/16 20:45 6 Intake and Output 11/09/16 11/09/16 11/10/16 08:00 16:00 00:00 Intake Total 796 ml 1035 ml 1188 ml Output Total 450 ml 905 ml 500 ml Balance 346 ml 130 ml 688 ml Result Diagram: 11/10/16 0600 11/10/16 0600 Imaging Last [address] 11/07/161955 Signed Impressions: Service Date/Time: October 20:38 - CONCLUSION: No acute intracranial abnormality demonstrated. Chronic white matter and old ischemic changes. Dhruv Foster MD Chest X-Ray 11/07/161955 Signed Impressions: Service Date/Time: October 20:54 - CONCLUSION: Worsening bilateral airspace disease and pleural effusions. Dhruv Foster MD Objective Remarks GENERAL: This is a elderly critically ill-appearing cachectic male, intubated and asleep HEENT: Normocephalic. Atraumatic. Pupils equal, round, reactive. Mucous membranes are moist and pink. NECK: Trachea is midline. No JVD. Orotracheally intubated CHEST: Right sided chest tube connected to pleural vac at 40 cm of water pressure .Distant breath sounds. No air leak CARDIOVASCULAR: Normal rate, regular rhythm. No appreciable murmurs. ABDOMEN: After, nontender, nondistended. No guarding. MUSCULOSKELETAL: 1+ peripheral edema. Distal pulses 2+ NEUROLOGICAL: RASS -4. GCS 3T. Witnessed seizure activity during the night. Urinary Catheter: Yes Date of Insertion: Nov 08, 2016 Side: Right Location: Internal, Jugular A/P Assessment and Plan Assessment: This is an 81-year-old male with history of prior recurrent right pleural effusions and COPD now presents with acute type II hypercarbic and hypoxic respiratory failure which has clearly failed noninvasive positive pressure ventilation. We will proceed with urgent endotracheal intubation for his type II respiratory failure. We will empirically cover him for a COPD exacerbation, as well as healthcare associated pneumonia given his history of being on Levaquin at his snf facility. In addition, I will consult interventional radiology to drain his recurrent posterior right pleural effusion , as I think this is a component of his respiratory failure this point. He remains critically ill. I am not sure that we will be able to get him through this hospitalization, and his recurrent respiratory failures are clearly making him more deconditioned every time he comes in the hospital. Despite this, his daughter continues to progress for aggressive measures. Plan by systems: Neurologic: CO2 narcosis Metabolic encephalopathy Mild dementia\ New onset seizure activity Fentanyl infusion , low-dose for vent synchrony, Versed infusion for continued seizure activity -Ativan PRN for breakthrough seizures -Neurology following Dr. Kirkland-patient may need follow-up EEG -11/08 CT of the brain-no acute abnormality -EEG-11/08-moderate to severe encephalopathy no clinical seizure Respiratory: Acute hypercarbic and hypoxic respiratory failure Recurrent right pleural effusion Right pneumothorax Possible healthcare associated pneumonia COPD exacerbation Methylprednisolone 60 mg IV every 12 Nebs every 4 and every 2 when necessary -Pulmonary consulted-per Dr. Valenzuela, patient will need pleurodesis prior to removal of chest tube Head of bed at 30 Vent bundle Wean FiO2 for goal SPO2 greater than 90% Does not meet SBT criteria today given altered mental status and hypoxia 11/08 S/P CT guided IR drainage of recurrent right posterior pleural effusion, unable to perform pleurodesis, maintain 40cm of suction to pleuravac Antibiotics as described below Cardiovascular: Hypertension Severe pulmonary hypertension A. fib RVR Maintain map greater than 60 Continue home antihypertensives -Currently on Levophed infusion -Monitor CVP Diuresis as below -Obtain stat 12-lead EKG Renal: Maintain Vital for accurate -- Strict I/Os FEN/GI: Acute intravascular volume overload Acute protein calorie malnutritionsevere Metabolic alkalosis Continue tube feeds, Jevity 1.5 goal rate 60 cc/hour ICU electrolyte protocol Lasix 40 mg IV twice a day on hold Diamox 500 mg discontinued Heme/ID: Possible healthcare associated pneumonia COPD exacerbation Leukocytosis Daily CBC, WBC count elevated from 7.1->13.4 today - lactate level 2.2 this am, follow trend -ID consulted Does not meet transfusion triggers at this time Vancomycin with pharmacy dosing, Cefepime, Azithromycin (day 2) 11/08 blood -Gram positive cocci - sputum culture, urine cultures-NGTD Endocrine: Hyperglycemia of critical illness -- SSI, medium scale, every 6 hours Prophylaxis: GI Prophylaxis Protonix 40 mg IV every 24 hours DVT Prophylaxis -- SCDs Patient on Coumadin, INR 1.6 Lines: Peripheral IVsx 2 . central line (day 2) Vital Dispo: Discussed medical update with daughter who desires aggressive treatment at this time. spoke with DIRECT SALES PROFESSIONAL at bedside This patient remains critically ill with one or more organ systems which are or may become a threat to life. I have spent in excess of 47 minutes discontinuously in the care and management of this patient. This time is exclusive of procedures, and includes, but is not limited to, evaluation of the patient, review of the medical record, discussions with family, consultants, nursing staff, or respiratory therapy, and documentation in the medical record. Physician Kathrine Childers MD Nov 10, 2016 15:50
[2016-11-10] MEDS: WARFARIN SOD 5 MG TAB PO SCH (16:09)
[2016-11-10 16:34] LABS: BLOOD GAS CARBOXYHEMOGLOBIN 1.4 % (0-4); BLOOD GAS HCO3 25 mmol/L (22-26); BLOOD GAS METHEMOGLOBIN 1.1 % (0-2); BLOOD GAS O2 HGB SATURATION 96 % (90-100); BLOOD GAS OXYGEN CONTENT 16.5 Vol % (12.0-20.0); BLOOD GAS PCO2 33 mmHg (38-42); BLOOD GAS PO2 110 mmHg (61-120); BLOOD GAS TOTAL HGB 12.1 G/DL (12.0-16.0); CRITICAL VALUE NO; OXYGEN DEVICE VENTILATOR; TEMP CORR TO 98.6
[2016-11-10 16:35] LABS: DRAW SITE ART LINE; FIO2 40 %; STAT NO
--- NOTE | 2016-11-10 16:50 | HHI.PR ---
Subjective Remarks 81 YOWM with VDRF,Pl effusion Right chest tube draining had 2 mg Ativan On PRVC AC Had multiple episodes of sz like activity Required Ativan Dr Kirkland following Objective Vital Signs Vital Signs Date Time Temp Pulse Resp B/P Pulse Ox O2 Delivery O2 Flow Rate FiO2 11/10/16 16:36 95 40 11/10/16 16:00 97.0 93 22 143/69 95 136/51 11/10/16 16:00 40 11/10/16 16:00 97 11/10/16 14:00 106 11/10/16 12:00 40 11/10/16 12:00 102 11/10/16 12:00 98.5 110 22 145/73 95 137/55 11/10/16 11:22 98 40 11/10/16 10:00 129 11/10/16 08:44 95 40 11/10/16 08:00 40 11/10/16 08:00 100 11/10/16 08:00 98.6 100 22 143/68 98 144/50 11/10/16 06:00 94 11/10/16 04:00 94 11/10/16 04:00 97.8 102 22 117/61 96 107/42 11/10/16 04:00 40 11/10/16 03:07 97 40 11/10/16 02:00 94 11/10/16 00:00 100 11/10/16 00:00 98.0 96 22 150/83 97 143/54 11/10/16 00:00 40 11/09/16 23:30 99 40 11/09/16 22:00 88 11/09/16 20:00 88 11/09/16 20:00 40 11/09/16 20:00 97.2 92 22 139/55 94 137/20 11/09/16 19:27 98 40 11/09/16 18:00 89 I/O 11/09/16 11/09/16 11/09/16 11/10/16 11/10/16 11/10/16 07:00 15:00 23:00 07:00 15:00 23:00 Intake Total 796 ml 1035 ml 1188 ml 893 ml 1388 ml Output Total 450 ml 905 ml 500 ml 450 ml 525 ml Balance 346 ml 130 ml 688 ml 443 ml 863 ml Intake IV Total 796 ml 725 ml 900 ml 566 ml 1053 ml Tube Feeding 210 ml 288 ml 327 ml 275 ml Tube Irrigant 100 ml 60 ml Output Urine Total 300 ml 875 ml 500 ml 450 ml 525 ml Chest Tube Drainage Total 150 ml 30 ml 0 ml # Bowel Movements 0 0 Result Diagram: 11/10/16 0600 11/10/16 06 Objective Remarks GENERAL: Elderly male, On Vent SKIN: Warm and dry. HEAD: Normocephalic. EYES: No scleral icterus. No injection or drainage. NECK: Supple, trachea midline. No JVD or lymphadenopathy. CARDIOVASCULAR: Regular rate and rhythm without murmurs, gallops, or rubs. RESPIRATORY: Breath sounds equal bilaterally. No accessory muscle use. Right chest tube draining GASTROINTESTINAL: Abdomen soft, non-tender, nondistended. MUSCULOSKELETAL: No cyanosis, or edema. BACK: Nontender without obvious deformity. No CVA tenderness. A/P Assessment and Plan VDRF Pleural effusion, s/p right chest tube Sz/ Encephalopathy AF CHF PLAN: Cont Vent support Chest tube to drain Will need Pleurodesis before pulling chest tube. Cont Abx On Coumadin, monitor INR Ash Valenzuela MD Nov 10, 2016 16:50
[2016-11-11] VITALS (18 sets, daily range): BP systolic 120–168; BP diastolic 44–90; PULSE 70–98; RESP 22; TEMP 97.8–98.7; O2SAT 95–100
[2016-11-11] MEDS: fentaNYL DRIP 250 ML IV SCH (03:13)
[2016-11-11] MEDS: RESP: ALBUTEROL 2.5 MG/IPRATROPIUM 0.5 MG NEB (SCH) INH ×6 (04:00→23:15)
--- NOTE | 2016-11-11 04:48 | RADRPT ---
EXAM DATE/TIME: 11/11/2016 02:50 [place] COMPARISON: CHEST SINGLE AP, November 10, 2016, 2:49. INDICATIONS : Shortness of breath, possible pulmonary disease. MEDICAL HISTORY : Chronic obstructive pulmonary disease. Congestive heart failure. SURGICAL HISTORY : None. ENCOUNTER: Subsequent ACUITY: 1 week PAIN SCORE: Non-responsive. LOCATION: Bilateral chest FINDINGS: There is marked enlargement of the cardiac/pericardial silhouette, hazy opacity overlying both lungs suggesting layering effusions, endotracheal tube and enteric tube identified. Right jugular line is a lso seen. CONCLUSION: No significant change has occurred. Don Soto MD on November 11, 2016 at 4:46 Board Certified Radiologist. This report was verified electronically.
[2016-11-11 05:48] LABS: BICARBONATE 27.4 MEQ/L (21.0-32.0); MAGNESIUM 2.2 MG/DL (1.5-2.5); POTASSIUM 4.2 MEQ/L (3.5-5.1)
[2016-11-11 05:56] LABS: AUTOMATED NEUTROPHIL # 11.9 TH/MM3 (1.8-7.7); BASOPHIL % 0.2 % (0.0-2.0); HEMATOCRIT 31.7 % (39.0-51.0); HEMO FLAGS DIFF FINAL; LYMPHOCYTE # 0.4 TH/MM3 (1.0-4.8); MEAN CELL VOLUME 98.5 FL (80.0-100.0); MEAN CORPUSCULAR HEMOGLOBIN 32.5 PG (27.0-34.0); MONO % 4.2 % (0.0-8.0); NEUT % 92.6 % (16.0-70.0); PLATELET COUNT 134 TH/MM3 (150-450); RED BLOOD COUNT 3.22 MIL/MM3 (4.50-5.90); RED CELL DISTRIBUTION WIDTH 15.8 % (11.6-17.2); WHITE BLOOD COUNT 12.9 TH/MM3 (4.0-11.0)
[2016-11-11] MEDS: CEFEPIME INJ 1,000 MG in SODIUM CHLORIDE 0.9% INJ 100 ML IV SCH ×3 (06:21→22:22)
[2016-11-11] MEDS: AZITHROMYCIN INJ 500 MG in SODIUM CHLOR 0.9% 250 ML INJ 250 ML IV SCH ×2 (06:22→22:24)
[2016-11-11] MEDS: INSULIN NovoLIN REGULAR SUPPLEMENTAL SCALE SQ SCH ×4 (06:25→17:16)
[2016-11-11] MEDS: VANCOMYCIN INJ 1,250 MG in SODIUM CHLOR 0.9% 250 ML INJ 250 ML IV SCH ×2 (06:25→22:35)
[2016-11-11] MEDS: NOREPINEPHRINE 4 MG/D5W 250 ML IV SCH (07:26)
--- NOTE | 2016-11-11 07:43 | HHI.CCPN ---
Subjective Remarks/Hospital Course This is an 81-year-old male who has had multiple readmissions over the past few months for a recurrent right-sided pleural effusion. [facility] with [facility] right-sided pleural effusion as well as hypoxia and somnolence. He was found to have significant hypercarbia and a PCO2 in the 90s. He was initially placed on BiPAP and admitted to the [facility]. He became more somnolent and his oxygen saturation began to decline. At this point a critical care medicine is consulted to evaluate and manage his hypercarbic respiratory failure. Because he is failed his trial of noninvasive positive pressure ventilation, we will move towards intubating the patient. I evaluated the patient and he is essentially unresponsive and obtunded and only minimally withdrawing to pain. I can obtain no additional history from the patient. Subjective: 11/09: Early this a.m. at approximately 06:30 the patient was noted to have a grand mal seizure lasting approximately 60 seconds followed by a small tonic- clonic seizure lasting 30 seconds involving the lower extremities. The patient received Ativan 2 mg with cessation of seizure activity. Stat CT of the brain without contrast was obtained showed no acute abnormality. EEG was obtained previously awaiting results. Prior to the event the patient was noted to be on a fentanyl infusion at approximately 250 mcg/h. The patient was noted to be a GCS 10T, squeezing my hand. 11/10: The patient was noted to have multiple seizures requiring interventions with IV Ativan. Described as tonic-clonic in nature with eyes rolled back in the head. Gross motor movement shaking 4 extremities. Today the patient was noted to have a positive growth and blood cultures. WBC count elevated. Ammonia level was drawn less than 10, lactate was noted to be 2.2 this morning. Pleural fluid culture negative growth to date. 11/11: On stimulation patient continues to have jerking movement of all extremities. EEG negative for seizures. Check MRI today. Dr. Kirkland is neurology. Remains on 2 mcg/min of Levophed Objective Vital Signs Date Time Temp Pulse Resp B/P Pulse Ox O2 Delivery O2 Flow Rate FiO2 11/11/16 04:00 96 40 11/11/16 04:00 98.7 78 22 168/74 148/55 11/08/16 02:39 BiPAP 11/07/16 20:45 6 Intake and Output 311/10/16 11/11/16 08:00 16:00 00:00 Intake Total 893 ml 1388 ml 1050 ml Output Total 450 ml 525 ml 375 ml Balance 443 ml 863 ml 675 ml Result Diagram: 11/11/16 0420 11/11/16 0420 Other Results Laboratory Tests Test 11/10/16 16:22 Blood Gas Puncture Site ART LINE Blood Gas Patient Temperature 98.6 Blood Gas HCO3 25 mmol/L (22-26) Blood Gas Base Excess 2.0 mmol/L (-2-2) Blood Gas Oxygen Saturation 96 % (90-100) Arterial Blood pH 7.50 (7.380-7.420) Arterial Blood Partial 33 mmHg (38-42) Pressure CO2 Arterial Blood Partial 110 mmHg Pressure O2 (61-120) Arterial Blood Oxygen Content 16.5 Vol % (12.0-20.0) Arterial Blood 1.4 % (0-4) Carboxyhemoglobin Arterial Blood Methemoglobin 1.1 % (0-2) Blood Gas Hemoglobin 12.1 G/DL (12.0-16.0) Oxygen Delivery Device VENTILATOR Blood Gas Ventilator Setting Blood Gas Inspired Oxygen 40 % Imaging Last [address] 11/07/161955 Signed Impressions: Service Date/Time: October 20:38 - CONCLUSION: No acute intracranial abnormality demonstrated. Chronic white matter and old ischemic changes. Dhruv Foster MD Chest X-Ray 11/07/161955 Signed Impressions: Service Date/Time: October 20:54 - CONCLUSION: Worsening bilateral airspace disease and pleural effusions. Dhruv Foster MD Objective Remarks GENERAL: This is a elderly critically ill-appearing cachectic male, intubated and sedated with Versed and Fentanyl HEENT: Normocephalic. Atraumatic. Pupils equal, round, reactive. Mucous membranes are moist and pink. NECK: Trachea is midline. No JVD. Orotracheally intubated CHEST: Right sided chest tube connected to pleural vac at 40 cm of water pressure. Distant breath sounds. No air leak CARDIOVASCULAR: Normal rate, regular rhythm. No appreciable murmurs. ABDOMEN: After, nontender, nondistended. No guarding. MUSCULOSKELETAL: 1+ peripheral edema. Distal pulses 2+ NEUROLOGICAL: RASS -4. GCS 3T. On central pain, patient slightly withdraws x2, also develops jerking movements x4 Urinary Catheter: Yes Assessment to: Continue Date of Insertion: Nov 08, 2016 Vascular Central Line Catheter: Yes Assessment to: Continue Side: Right Location: Internal, Jugular A/P Assessment and Plan Assessment: This is an 81-year-old male with history of prior recurrent right pleural effusions and COPD now presents with acute type II hypercarbic and hypoxic respiratory failure which has clearly failed noninvasive positive pressure ventilation. Intubated and placed on mechanical ventilation.Covering COPD exacerbation, as well as healthcare associated pneumonia given his history of being [facility]. He remains critically ill. I am not sure that we will be able to get him through this hospitalization , and his recurrent respiratory failures are clearly making him more deconditioned every time he comes in the hospital. Despite this, his daughter continues to progress for aggressive measures. Plan by systems: Neurologic: CO2 narcosis Metabolic encephalopathy Mild dementia Possible jerking vs Myoclonus Fentanyl infusion and Versed infusion Vent synchrony and possible seizure. DC continuos versed gtt -Ativan PRN for breakthrough seizures -Neurology following Dr. Kirkland-EEG negative 11/10/15 -11/08 CT of the brain-no acute abnormality. Check MRI today -EEG-11/08-moderate to severe encephalopathy no clinical seizure Respiratory: Acute hypercarbic and hypoxic respiratory failure Recurrent right pleural effusion s/p chest tube placement Right pneumothorax Possible healthcare associated pneumonia COPD exacerbation Methylprednisolone 60 mg IV every 12 Nebs every 4 and every 2 when necessary -Pulmonary consulted-per Dr. Valenzuela, patient will need pleurodesis prior to removal of chest tube Head of bed at 30, Vent bundle Wean FiO2 for goal SPO2 greater than 90% Does not meet SBT criteria today given altered mental status and hypoxia 11/08 S/P CT guided IR drainage of recurrent right posterior pleural effusion, unable to perform pleurodesis, maintain 40cm of suction to pleuravac Antibiotics as described below Cardiovascular: Severe pulmonary hypertension A. fib RVR Hypertension Maintain map greater than 60-65 Hold home antihypertensives -Currently on Levophed infusion -Monitor CVP Diuresis as below Renal: Maintain Vital for accurate -- Strict I/Os FEN/GI: Acute intravascular volume overload Acute protein calorie malnutritionsevere Metabolic alkalosis Continue tube feeds, Jevity 1.5 goal rate 60 cc/hour ICU electrolyte protocol Lasix 40 mg IV twice a day on hold Diamox 500 mg discontinued Heme/ID: Possible healthcare associated pneumonia COPD exacerbation Leukocytosis Daily CBC, WBC count stable 13.4 to 12.9 today - lactate level 2.2 this am, follow trend - ID consulted by Dr. Gaspar Does not meet transfusion triggers at this time Vancomycin with pharmacy dosing, Cefepime, Azithromycin (day 3) 11/08 blood -Gram positive cocci 08/28 possible contaminant - sputum culture, urine cultures-NGTD Endocrine: Hyperglycemia of critical illness -- SSI, medium scale, every 6 hours Prophylaxis: GI Prophylaxis Protonix 40 mg IV every 24 hours DVT Prophylaxis -- SCDs Patient on Coumadin, INR 1.6 pharmacy consulted for Coumadin dosing Lines: Peripheral IVsx 2 . central line Vital Dispo: Discussed medical update with daughter who desires aggressive treatment at this time. spoke with DICTAPHONE TECHNICIAN at bedside This patient remains critically ill with one or more organ systems which are or may become a threat to life. I have spent in excess of 35 minutes discontinuously in the care and management of this patient. This time is exclusive of procedures, and includes, but is not limited to, evaluation of the patient, review of the medical record, discussions with family, consultants, nursing staff, or respiratory therapy, and documentation in the medical record. Rebecca Bartlett MD Nov 11, 2016 07:43
[2016-11-11] MEDS: SODIUM CHLORIDE 0.9% FLUSH 5 ML FLUSH IVF PRN (08:00)
[2016-11-11] MEDS: methylPREDNISolone SOD SUCC 125 MG/2 ML VIAL IV PUSH SCH ×2 (08:22→22:22)
[2016-11-11] MEDS: SODIUM CHLORIDE 0.9% FLUSH 5 ML FLUSH FLUSH SCH ×2 (08:22→22:23)
[2016-11-11] MEDS: SODIUM CHLORIDE 0.9% FLUSH 5 ML FLUSH IVF SCH (08:22)
[2016-11-11] MEDS: CHLORHEXIDINE 0.12% (ORAL KIT) 15 ML CUP MT SCH ×2 (08:23→22:28)
[2016-11-11 08:58] LABS: INTERNATIONAL NORMALIZED RATIO 1.9 RATIO; PROTHROMBIN TIME - PATIENT 21.6 SEC (9.8-11.6)
--- NOTE | 2016-11-11 11:54 | PD.ID.CON ---
History of Present Illness Service ID Consult Requested By Dr Gaspar Reason for Consult bacteremia Primary Care Physician No Primary Care Physician Diagnoses: History of Present Illness This is an 81-year-old male with extensive past med history and multiple readmissions over the past few months for a recurrent right-sided pleural effusion. This time he presents from [facility] with recurrent right- sided pleural effusion, hypoxia and somnolence. He was found to have significant hypercapnia with PCO2 in the 90s. He was initially placed on BiPAP but developped progressive hypercapnic respiratory failure. 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 Pleural fluid culture negative growth - final He is persistently hypotensive and requires small amount of pressors ( 2 mcg/ min of Levophed) He has moderate amount of duron thick secretions He is on vancomycin azithro cefepime Review of Systems ROS Limitations: Clinical Condition, Intubated, Altered Mental Status, Unresponsive Past Family Social History Allergies: Coded Allergies: No Known Allergies (Verified , 11/07/16) Past Medical History Recent hospitalization from 10/06/16-10/20/16 due to respiratory failure from pleural effusions status post chest tube placement, followed by pleurodesis with talc on October 16, 2016. Patient was evaluated by cardiothoracic surgeon and he is not a candidate for decortication/aggressive measures. Recent right pneumothoraxwhich developed post thoracocentesis COPDwith chronic CO2 retention Diastolic heart failure Cor pulmonale/pulmonary hypertension of 85 mmHg Severe tricuspid regurgitation Hypertension Atrial fibrillation Chronic anticoagulation on Coumadin Severe Protein calorie malnutrition Past Surgical History Thoracocentesis Chest tube placements Right eye surgery Right knee surgery Active Ordered Medications Medications where reviewed in EMR Antibiotics Include: vancomycin azithro cefepime Family History Unknown Social History No Tobacco. No ETOH. No Illicit Drugs. Physical Exam Vital Signs Vital Signs Date Time Temp Pulse Resp B/P Pulse Ox O2 Delivery O2 Flow Rate FiO2 11/11/16 10:22 96 40 11/11/16 10:00 85 11/11/16 08:00 40 11/11/16 08:00 82 11/11/16 08:00 98.6 82 22 150/70 96 141/47 11/11/16 07:31 96 40 11/11/16 06:00 85 11/11/16 04:00 40 11/11/16 04:00 96 40 11/11/16 04:00 98.7 78 22 168/74 96 148/55 11/11/16 04:00 85 11/11/16 04:00 98.4 80 22 136/75 96 128/46 11/11/16 02:00 89 11/11/16 00:00 40 11/11/16 00:00 96 11/11/16 00:00 98.2 80 22 136/75 96 128/46 11/10/16 23:19 96 40 11/10/16 22:00 80 11/10/16 20:00 94.0 83 22 139/72 96 139/51 11/10/16 20:00 80 11/10/16 19:36 97 40 11/10/16 18:00 91 11/10/16 16:36 95 40 11/10/16 16:00 97.0 93 22 143/69 95 136/51 11/10/16 16:00 40 11/10/16 16:00 97 11/10/16 14:00 106 11/10/16 12:00 40 11/10/16 12:00 102 11/10/16 12:00 98.5 110 22 145/73 95 137/55 Physical Exam CONSTITUTIONAL/GENERAL: This is an adequately nourished patient, in no apparent distress. Intubated on mechanical vent TUBES/LINES/DRAINS: SKIN: No jaundice, rashes, or lesions. Skin temperature appropriate. Not diaphoretic. HEAD: Atraumatic. Normocephalic. EYES: Pupils equal and round and reactive. Extraocular motions intact. No scleral icterus. No injection or drainage. Fundi not examined. ENT: Hearing grossly normal. Nose without bleeding or purulent drainage. Throat without visible erythema, exudates, masses, or lesions. NECK: Trachea midline. Supple, nontender. No palpable thyroid enlargement or nodularity. CARDIOVASCULAR: Regular rate and rhythm without murmurs, gallops, or rubs. No JVD. Peripheral pulses symmetric. RESPIRATORY/CHEST: Symmetric, unlabored respirations. Clear to auscultation. Breath sounds equal bilaterally. No wheezes, rales, or rhonchi. GASTROINTESTINAL: Abdomen soft, non-tender, nondistended. No hepato-splenomegaly , or palpable masses. No guarding. Bowel sounds present. GENITOURINARY: Without palpable bladder distension. Vital catheter in place with clear dutch coloured urine MUSCULOSKELETAL: Extremities without clubbing, cyanosis, or edema. No joint tenderness or effusion noted. No calf tenderness. No mottling or clubbing. LYMPHATICS: No palpable cervical or supraclavicular adenopathy. NEUROLOGICAL: Awake and alert. Minimally responsive, not tracks or follows commands. Withdraws to noxious stimuli Persistent jerking movement s in BLE noted PSYCHIATRIC: unable to assess Laboratory Laboratory Tests Test 11/10/16 11/10/16 11/11/16 11/11/16 16:22 18:20 04:20 08:20 Blood Gas Puncture Site ART LINE Blood Gas Patient Temperature 98.6 Blood Gas HCO3 25 Blood Gas Base Excess 2.0 Blood Gas Oxygen Saturation 96 Arterial Blood pH 7.50 Arterial Blood Partial 33 Pressure CO2 Arterial Blood Partial 110 Pressure O2 Arterial Blood Oxygen Content 16.5 Arterial Blood 1.4 Carboxyhemoglobin Arterial Blood Methemoglobin 1.1 Blood Gas Hemoglobin 12.1 Oxygen Delivery Device VENTILATOR Blood Gas Ventilator Setting Blood Gas Inspired Oxygen 40 Lactic Acid Level 1.6 White Blood Count 12.9 Red Blood Count 3.22 Hemoglobin 10.5 Hematocrit 31.7 Mean Corpuscular Volume 98.5 Mean Corpuscular Hemoglobin 32.5 Mean Corpuscular Hemoglobin 33.0 Concent Red Cell Distribution Width 15.8 Platelet Count 134 Mean Platelet Volume 8.9 Neutrophils (%) (Auto) 92.6 Lymphocytes (%) (Auto) 3.0 Monocytes (%) (Auto) 4.2 Eosinophils (%) (Auto) 0.0 Basophils (%) (Auto) 0.2 Neutrophils # (Auto) 11.9 Lymphocytes # (Auto) 0.4 Monocytes # (Auto) 0.5 Eosinophils # (Auto) 0.0 Basophils # (Auto) 0.0 CBC Comment DIFF FINAL Differential Comment Sodium Level 146 Potassium Level 4.2 Chloride Level 111 Carbon Dioxide Level 27.4 Anion Gap 8 Blood Urea Nitrogen 24 Creatinine 0.64 Estimat Glomerular Filtration 120 Rate Random Glucose 150 Calcium Level 8.8 Phosphorus Level 2.8 Magnesium Level 2.2 Prothrombin Time 21.6 Prothromb Time International 1.9 Ratio Date/Time Procedure Status Source Growth 11/08/16 13:20 Gram Stain - Final Complete Fluid Pleural Fluid 11/08/16 13:20 Body Fluid Culture - Final Complete Fluid Pleural Fluid NO GROWTH IN 72 HRS.--AEROBICALLY OR ... 11/08/16 13:20 Fungal Smear - Final Resulted Fluid Pleural Fluid NO FUNGAL ELEMENTS SEEN. 11/08/16 13:20 Fungal Culture Resulted Fluid Pleural Fluid Pending 11/08/16 13:20 Acid Fast Stain - Final Resulted Fluid Pleural Fluid NO ACID FAST BACILLI SEEN 11/08/16 13:20 Mycobacterial Culture Resulted Fluid Pleural Fluid Pending 11/07/16 20:10 Aerobic Blood Culture - Final Resulted Blood Peripheral Micrococcus Species 11/07/16 20:10 Anaerobic Blood Culture - Preliminary Resulted Blood Peripheral NO GROWTH IN 4 DAYS 11/07/16 20:00 Aerobic Blood Culture - Preliminary Resulted Blood Peripheral NO GROWTH IN 4 DAYS 11/07/16 20:00 Anaerobic Blood Culture - Preliminary Resulted Blood Peripheral NO GROWTH IN 4 DAYS Result Diagram: 11/11/16 0420 11/11/16 0420 Imaging Last Impressions Chest X-Ray 11/11/16 0600 Signed Impressions: Service Date/Time: Friday, November 11, 2016 02:50 - CONCLUSION: No significant change has occurred. Don Soto MD Head CT 11/09/16 0000 Signed Impressions: Service Date/Time: Wednesday, November 09, 2016 10:29 - CONCLUSION: Stable CT scan of the brain. Pradeep Rodriguez MD Chest Tube Insertion 11/08/16 0000 Signed Impressions: Service Date/Time: Tuesday, November 08, 2016 12:46 - CONCLUSION: Uncomplicated right chest tube placement as above. 1500 cc of fluid removed and sent for culture. Post CT scan reveals a large. pleural rind . The right lung may well not reexpanded. A.m. chest x-ray is pending. Cultures pending. Kun Mendoza MD FACR CT Angiography 11/07/16 0000 Signed Impressions: Service Date/Time: October 20:40 - CONCLUSION: 1. No pulmonary embolus. 2. Marked cardiac enlargement, especially the atria. 3. Bilateral effusions and atelectasis about the same on the left and considerably worse on the right. Right pneumothorax seen previously has resolved. Dhruv Foster MD Assessment and Plan Assessment and Plan Micrococcus bactermia, low grade doubt clin significance Recurrent R dside pleraul effusion, clx are negative suspected sz, neuro w/u in progress - EEG neg - MRI P Low grade leukocytosis acute VDRF ? PNA - chk sputum clx - dc vancomycin if no MRSA in sputum - fu CXR Hyun Topete MD Nov 11, 2016 11:54
[2016-11-11] MEDS ORDERED: GADODIAMIDE PF 287 MG/ML 5 ML VIAL (for RAD MRI) IV ONE (13:45)
[2016-11-11] MEDS: LORazepam 2 MG/ML VIAL IV PUSH PRN (13:59)
--- NOTE | 2016-11-11 15:08 | EKG ---
Date Performed: 11/10/2016 Time Performed: 10:54:52 PTAGE: 81 years EKG: Atrial fibrillation with rapid ventricular response with PVC(s) Right bundle branch block I nferior ST-T changes are nonspecific Abnormal ECG NO PREVIOUS TRACING DOCTOR: Claudy Anthony Interpretating Date/Time 11/11/2016 15:06:48
--- NOTE | 2016-11-11 15:11 | RADRPT ---
EXAM DATE/TIME: 11/11/2016 12:53 [facility] COMPARISON: No previous studies available for comparison. INDICATIONS : Altered mental status. CONTRAST: 13 cc Omniscan (gadodiamide) IV MEDICAL HISTORY : Hypertension. Chronic obstructive pulmonary disease. Congestive heart failure. SURGICAL HISTORY : knee surgery, thoracentesis ENCOUNTER: Subsequent ACUITY: 4-6 days PAIN SCORE: Nonresponsive. LOCATION: cranial TECHNIQUE: Multiplanar, multisequence MRI of the brain was performed both prior to and following the administrat ion of paramagnetic contrast. FINDINGS: The examination demonstrates cortical atrophy with scattered areas of lacunar infarct seen in the bas al ganglia and corpus callosum. No mass lesion is identified. No findings to indicate acute cortical infarction are present. SWI imaging is provided. These demonstrate some scattered small areas of blooming hemosiderin artifac t within the basal ganglia. There is at least one area on the left which has a fairly well-defined he mosiderin ring and may represent a small cavernous angioma. The remainder could suggest the possibili ty of amyloid. The ventricles are normal in size and configuration. No extra-axial fluid collections are identified. The visualized portion of sinus and orbit are intact. CONCLUSION: 1. 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 2. The susceptibility weighted images images demonstrate some scattered areas of blooming artifact wi thin the basal ganglia at least one of these probably represents a small cavernous angioma. The other s would be consistent with punctate, remote areas of hemorrhage suggesting possibility of amyloid. Eitan Mendoza MD on November 11, 2016 at 14:59 Board Certified Radiologist. This report was verified electronically.
[2016-11-11] MEDS ORDERED: PHENYTOIN INJ 1,000 MG in SODIUM CHLORIDE 0.9% INJ 100 ML IV ONE (15:45)
[2016-11-11] MEDS ORDERED: SODIUM CHLOR 0.9% IV ONE (16:00)
[2016-11-11] MEDS ORDERED: PHENYTOIN IV ONE (16:00)
[2016-11-11] MEDS: WARFARIN SOD 5 MG TAB PO SCH (16:04)
[2016-11-11] MEDS: MIDAZOLAM 100 MG/ML INJ 100 ML IV SCH (16:05)
[2016-11-11] MEDS: PHENYTOIN INJ 100 MG/2 ML VIAL IV PUSH SCH (17:16)
--- NOTE | 2016-11-11 18:01 | MG ---
cc: HERMELINDA MERCADO MD Lab No: Date: 11/11/2016 Age: Sex: M Race: ELECTROENCEPHALOGRAM NUMBER [id number] DATE OF 1935 INDICATION An 81-year-old respiratory distress. Episodes of shaking during the recording. Intubated on fentanyl. DESCRIPTION 1-3 Hz delta activity occurring with superimposed 5-6 Hz theta activity, 20-40 microvolts. Mild frontal sharp transients noted as well. Episodes of limb shaking, body shaking including epoch 111 without any strong epileptic correlation. Good EEG variability reactivity. Frequent eye movement artifact noted. Limited driving with photic stimulation. Single EKG shows sinus tachycardia as well as some irregularity. INTERPRETATION Moderate encephalopathy, cardiac arrhythmia. Episodes of limb shaking not associated with any epileptic activity. Clinical correlation. Hermelinda Mercado MD MG/KK /4:53 PM /5:55 PM
--- NOTE | 2016-11-11 19:55 | HHI.PR ---
Subjective Remarks 81 YOWM with VDRF,Pl effusion Right chest tube draining had 2 mg Ativan On PRVC AC Has Jerky movements Objective Vital Signs Vital Signs Date Time Temp Pulse Resp B/P Pulse Ox O2 Delivery O2 Flow Rate FiO2 11/11/16 19:16 99 40 11/11/16 18:00 83 11/11/16 16:42 95 40 11/11/16 16:00 40 11/11/16 16:00 98.6 91 22 146/90 95 128/54 11/11/16 16:00 91 11/11/16 14:22 99 40 11/11/16 14:00 98 11/11/16 12:40 100 50 11/11/16 12:00 95 11/11/16 12:00 98.2 95 22 152/69 96 143/50 11/11/16 12:00 40 11/11/16 10:22 96 40 11/11/16 10:00 85 11/11/16 08:00 40 11/11/16 08:00 82 11/11/16 08:00 98.6 82 22 150/70 96 141/47 11/11/16 07:31 96 40 11/11/16 06:00 85 11/11/16 04:00 40 11/11/16 04:00 96 40 11/11/16 04:00 98.7 78 22 168/74 96 148/55 11/11/16 04:00 85 11/11/16 04:00 98.4 80 22 136/75 96 128/46 11/11/16 02:00 89 11/11/16 00:00 40 11/11/16 00:00 96 11/11/16 00:00 98.2 80 22 136/75 96 128/46 11/10/16 23:19 96 40 11/10/16 22:00 80 11/10/16 20:00 94.0 83 22 139/72 96 139/51 11/10/16 20:00 80 I/O 11/10/16 11/10/16 11/10/16 11/11/16 11/11/16 11/11/16 07:00 15:00 23:00 07:00 15:00 23:00 Intake Total 893 ml 1388 ml 1050 ml 357 ml 845 ml Output Total 450 ml 525 ml 375 ml 200 ml 250 ml Balance 443 ml 863 ml 675 ml 157 ml 595 ml Intake IV Total 566 ml 1053 ml 487 ml 357 ml 470 ml Tube Feeding 327 ml 275 ml 563 ml 315 ml Tube Irrigant 60 ml 60 ml Output Urine Total 450 ml 525 ml 375 ml 200 ml 250 ml Chest Tube Drainage Total 0 ml 0 ml # Bowel Movements 0 0 Result Diagram: 11/11/1641911/11/16419 Objective Remarks GENERAL: Elderly male, On Vent SKIN: Warm and dry. HEAD: Normocephalic. EYES: No scleral icterus. No injection or drainage. NECK: Supple, trachea midline. No JVD or lymphadenopathy. CARDIOVASCULAR: Regular rate and rhythm without murmurs, gallops, or rubs. RESPIRATORY: Breath sounds equal bilaterally. No accessory muscle use. Right chest tube draining GASTROINTESTINAL: Abdomen soft, non-tender, nondistended. MUSCULOSKELETAL: No cyanosis, or edema. BACK: Nontender without obvious deformity. No CVA tenderness. A/P Assessment and Plan VDRF Pleural effusion, s/p right chest tube Sz/ Encephalopathy AF CHF PLAN: Cont Vent support Chest tube to drain Will need Pleurodesis before pulling chest tube. Cont Abx On Coumadin, monitor INR Ash Valenzuela MD Nov 11, 2016 19:55
--- NOTE | 2016-11-11 20:26 | HHI.PR ---
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 one hourly. Dilantin infusion Dilantin 100mg Q8h DVT prophylaxis. Seizure prophylaxis. Diagnosis/Plan: Subjective Subjective Comments Patient witnessed with tonic convulsions started over right arm and propagated to left UE and both LE with fluttering of the eyes and upward gaze that lasted about 90 seconds then followed by another similar episode.. I ordered a STAT EEG and loaded with Dilantin iv infusion and a maintenance dose of 100mg Q8h, discussed with nurse and Dr. Bartlett the plan of care Active Medications Current Medications Medications (Trade) Dose Ordered Sig/Sonia Route Start Time Stop Time Status Last Admin (NS Flush) 2 ml UNSCH PRN FLUSH 11/07/16 22:00 11/10/16 09:32 (NS Flush) 2 ml BID FLUSH 11/08/16 09:00 11/11/16 08:22 (Narcan Inj) 0.4 mg UNSCH PRN IV 11/07/16 22:00 (Tenormin) 50 mg BID PO 11/08/16 09:00 Hold (Capoten) 50 mg TIDAC PO 11/08/16 08:00 Hold (Coumadin) 5 mg DAILY@16 PO 11/08/16 16:00 11/11/16 16:04 (Tylenol) 650 mg Q4H PRN PO 11/08/16 01:30 (Lasix Inj) 20 mg BID@09,18 IV PUSH 11/08/16 09:00 Hold 11/10/16 09:32 Methylprednisolone Sodium Succinate 60 mg 60 mg Q12HR IV PUSH 11/08/16 09:00 11/11/16 08:22 Pharmacy Profile Note 0 ml @ 0 mls/hr UNSCH OTHER 11/08/16 03:45 Cefepime HCl 1000 mg/Sodium Chloride 100 ml @ 200 mls/hr Q8H IV 11/08/16 06:00 11/11/16 13:59 (Zithromax Inj/ NS 250 ml Inj) 250 ml @ 250 mls/hr Q24H IV 11/08/16 20:00 11/11/16 06:22 Miscellaneous Information Patient in critical care unit? Ass... Q361D XX 11/08/16 04:00 11/08/16 04:00 (Chlorhexidine 2% Cloth) 3 pack DAILY@04 TOP 11/08/16 04:00 11/12/16 04:01 11/10/16 04:00 (Chlorhexidine 2% Cloth) 3 pack UNSCH PRN TOP 11/08/16 04:00 11/13/16 03:59 (Peridex 0.12% Liq) 15 ml BID@08,20 MT 11/08/16 08:00 11/11/16 08:23 (D50w (Vial) Inj) 25 ml UNSCH PRN IV PUSH 11/08/16 05:45 Insulin Human Regular 1 1 Q6HR SQ 11/08/16 06:00 11/11/16 17:16 (fentaNYL DRIP) 250 ml @ 0 mls/hr TITRATE IV 11/08/16 05:45 11/11/16 03:13 (NS Flush) DAILY IVF 11/09/16 09:00 11/11/16 08:22 IV Flush UNSCH PRN IVF 11/08/16 09:45 11/11/16 08:00 Potassium Chloride 100 ml @ 50 mls/hr Q2H PRN IV 11/08/16 11:15 11/10/16 03:19 Potassium Chloride 100 ml @ 50 mls/hr Q2H PRN IV 11/08/16 11:15 Potassium Chloride 100 ml @ 25 mls/hr UNSCH PRN IV 11/08/16 11:15 Potassium Chloride 100 ml @ 50 mls/hr Q2H PRN IV 11/08/16 11:15 (Magnesium Sulfate Inj/NS Inj) 100 ml @ 50 mls/hr UNSCH PRN IV 11/08/16 11:15 Magnesium Oxide 800 mg 800 mg UNSCH PRN PO 11/08/16 11:15 (Magnesium Sulfate Inj/NS Inj) 100 ml @ 50 mls/hr UNSCH PRN IV 11/08/16 11:15 Potassium Phosphate 2000 mg 2,000 mg Q4H PRN PO 11/08/16 11:15 (Sodium Phosphate Inj/NS 250 ml Inj) 250 ml @ 42 mls/hr UNSCH PRN IV 11/08/16 11:15 Potassium Phosphate 2000 mg 2,000 mg UNSCH PRN PO/TUBE 11/08/16 11:15 Potassium Phosphate 30 mmol/ Sodium Chloride 260 ml @ 42 mls/hr UNSCH PRN IV 11/08/16 11:15 Vancomycin HCl 1250 mg/Sodium Chloride 262.5 ml @ 262.5 mls/ hr Q18H IV 11/08/16 23:00 11/11/16 06:25 (Levophed-Dextrose Drip) 250 ml @ 0 mls/hr TITRATE IV 11/08/16 23:45 11/11/16 07:26 Lorazepam 1 mg 1 mg Q3H PRN IV PUSH 11/09/16 05:00 11/11/16 13:59 Pharmacy Profile Note 0 ml @ 0 mls/hr UNSCH OTHER 11/11/16 07:45 (Versed Inj) 100 ml @ 0 mls/hr TITRATE IV 11/11/16 15:30 11/11/16 16:05 (Dilantin Inj) 100 mg Q8H IV PUSH 11/11/16 17:00 11/11/16 17:16 Allergies Allergies Coded Allergies No Known Allergies (Verified11/07/16) Exam I&O / VS 11/10/16 11/10/16 11/11/16 15:00 23:00 07:00 Intake Total 1388 ml 1050 ml 357 ml Output Total 525 ml 375 ml 200 ml Balance 863 ml 675 ml 157 ml Intake IV Total 1053 ml 487 ml 357 ml Tube Feeding 275 ml 563 ml Tube Irrigant 60 ml Output Urine Total 525 ml 375 ml 200 ml Chest Tube Drainage Total 0 ml # Bowel Movements 0 Vital Signs Date Time Temp Pulse Resp B/P Pulse Ox O2 Delivery O2 Flow Rate FiO2 11/11/16 19:16 99 40 11/11/16 18:00 83 11/11/16 16:42 95 40 11/11/16 16:00 40 11/11/16 16:00 98.6 91 22 146/90 95 128/54 11/11/16 16:00 91 11/11/16 14:22 99 40 11/11/16 14:00 98 11/11/16 12:40 100 50 11/11/16 12:00 95 11/11/16 12:00 98.2 95 22 152/69 96 143/50 11/11/16 12:00 40 11/11/16 10:22 96 40 11/11/16 10:00 85 11/11/16 08:00 40 11/11/16 08:00 82 11/11/16 08:00 98.6 82 22 150/70 96 141/47 11/11/16 07:31 96 40 11/11/16 06:00 85 11/11/16 04:00 40 11/11/16 04:00 96 40 11/11/16 04:00 98.7 78 22 168/74 96 148/55 11/11/16 04:00 85 11/11/16 04:00 98.4 80 22 136/75 96 128/46 11/11/16 02:00 89 11/11/16 00:00 40 11/11/16 00:00 96 11/11/16 00:00 98.2 80 22 136/75 96 128/46 11/10/16 23:19 96 40 11/10/16 22:00 80 Exam Comments GENERAL: The patient is vented and sedated, well-developed.Witnessed having a tonic seizure attack HEENT: Atraumatic, normocephalic. No conjunctival injection. NECK: No carotid bruit. CARDIOVASCULAR: Regular rate and rhythm. LUNGS: Respiration bilateral decreased air entry with scattered wheezes. NEUROLOGICAL: Vented and sedated. Pupils are 1 mm bilateral, sluggishly responding to light. upward deviation of both eyes. Plantars are bilateral, mute. Objective Radiology Results Last 72 hours Impressions Chest X-Ray 11/11/16 06 Signed Impressions: Service Date/Time: Friday, November 11, 2016 02:50 - CONCLUSION: No significant change has occurred. Don Soto MD Brain MRI 11/11/16 0000 Signed Impressions: Service Date/Time: Friday, November 11, 2016 12:53 - CONCLUSION: 1. 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 2. 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 The others would be consistent with punctate, remote areas of hemorrhage suggesting possibility of amyloid. Eitan Mendoza MD Chest X-Ray 11/10/16 0600 Signed Impressions: Service Date/Time: Thursday, November 10, 2016 02:49 - CONCLUSION: 1. Small caliber right chest tube present with resolution of previous right pleural effusion. There is a small right-sided basilar pneumothorax. 2. Left basilar airspace disease and effusion not significantly changed since November 09. Chaka Campos MD Head CT 11/09/16 0000 Signed Impressions: Service Date/Time: Wednesday, November 09, 2016 10:29 - CONCLUSION: Stable CT scan of the brain. Pradeep Rodriguez MD Chest X-Ray 11/09/16 0000 Signed Impressions: Service Date/Time: Wednesday, November 09, 2016 01:46 - CONCLUSION: 1. Right chest tube present with tiny right basilar pneumothorax. No right effusion. Small to moderate left effusion with basilar airspace disease. Support apparatus unchanged. Chaka Campos MD Micro and Labs Laboratory Tests Test 11/11/16 11/11/16 04:20 08:20 White Blood Count 12.9 Red Blood Count 3.22 Hemoglobin 10.5 Hematocrit 31.7 Mean Corpuscular Volume 98.5 Mean Corpuscular Hemoglobin 32.5 Mean Corpuscular Hemoglobin 33.0 Concent Red Cell Distribution Width 15.8 Platelet Count 134 Mean Platelet Volume 8.9 Neutrophils (%) (Auto) 92.6 Lymphocytes (%) (Auto) 3.0 Monocytes (%) (Auto) 4.2 Eosinophils (%) (Auto) 0.0 Basophils (%) (Auto) 0.2 Neutrophils # (Auto) 11.9 Lymphocytes # (Auto) 0.4 Monocytes # (Auto) 0.5 Eosinophils # (Auto) 0.0 Basophils # (Auto) 0.0 CBC Comment DIFF FINAL Differential Comment Sodium Level 146 Potassium Level 4.2 Chloride Level 111 Carbon Dioxide Level 27.4 Anion Gap 8 Blood Urea Nitrogen 24 Creatinine 0.64 Estimat Glomerular Filtration 120 Rate Random Glucose 150 Calcium Level 8.8 Phosphorus Level 2.8 Magnesium Level 2.2 Prothrombin Time 21.6 Prothromb Time International 1.9 Ratio Date/Time Procedure Status Source Growth 11/08/16 13:20 Gram Stain - Final Complete Fluid Pleural Fluid 11/08/16 13:20 Body Fluid Culture - Final Complete Fluid Pleural Fluid NO GROWTH IN 72 HRS.--AEROBICALLY OR ... 11/08/16 13:20 Fungal Smear - Final Resulted Fluid Pleural Fluid NO FUNGAL ELEMENTS SEEN. 11/08/16 13:20 Fungal Culture Resulted Fluid Pleural Fluid Pending 11/08/16 13:20 Acid Fast Stain - Final Resulted Fluid Pleural Fluid NO ACID FAST BACILLI SEEN 11/08/16 13:20 Mycobacterial Culture Resulted Fluid Pleural Fluid Pending 11/07/16 20:10 Aerobic Blood Culture - Final Resulted Blood Peripheral Micrococcus Species 11/07/16 20:10 Anaerobic Blood Culture - Preliminary Resulted Blood Peripheral NO GROWTH IN 4 DAYS 11/07/16 20:00 Aerobic Blood Culture - Preliminary Resulted Blood Peripheral NO GROWTH IN 4 DAYS 11/07/16 20:00 Anaerobic Blood Culture - Preliminary Resulted Blood Peripheral NO GROWTH IN 4 DAYS Deirdre Kirkland MD Nov 11, 2016 20:26
[2016-11-11] MEDS: CHLORHEXIDINE GLUCONATE 2 % 1 PACK (2 CLOTHS)(taper/protocol) TOP SCH (22:25)
[2016-11-12] VITALS (20 sets, daily range): BP systolic 102–151; BP diastolic 41–76; PULSE 65–84; RESP 22–25; TEMP 97.6–98.1; O2SAT 94–100
[2016-11-12] MEDS: PHENYTOIN INJ 100 MG/2 ML VIAL IV PUSH SCH ×3 (00:23→17:09)
[2016-11-12] MEDS: MIDAZOLAM 100 MG/ML INJ 100 ML IV SCH ×2 (04:10→21:52)
[2016-11-12] MEDS: fentaNYL DRIP 250 ML IV SCH (04:11)
[2016-11-12] MEDS: RESP: ALBUTEROL 2.5 MG/IPRATROPIUM 0.5 MG NEB (SCH) INH ×6 (04:14→22:57)
[2016-11-12 04:28] LABS: AUTOMATED NEUTROPHIL # 10.6 TH/MM3 (1.8-7.7); HEMATOCRIT 31.6 % (39.0-51.0); HEMO FLAGS DIFF FINAL; LYMPH % 4.2 % (9.0-44.0); LYMPHOCYTE # 0.5 TH/MM3 (1.0-4.8); MEAN CELL VOLUME 98.8 FL (80.0-100.0); MEAN CORPUSCULAR HEMOGLOBIN 32.6 PG (27.0-34.0); NEUT % 91.8 % (16.0-70.0); PLATELET COUNT 117 TH/MM3 (150-450); RED BLOOD COUNT 3.19 MIL/MM3 (4.50-5.90); RED CELL DISTRIBUTION WIDTH 16.3 % (11.6-17.2); WHITE BLOOD COUNT 11.5 TH/MM3 (4.0-11.0)
[2016-11-12] MEDS: CEFEPIME INJ 1,000 MG in SODIUM CHLORIDE 0.9% INJ 100 ML IV SCH ×3 (04:28→21:52)
[2016-11-12 04:42] LABS: INTERNATIONAL NORMALIZED RATIO 1.9 RATIO; PROTHROMBIN TIME - PATIENT 21.5 SEC (9.8-11.6)
[2016-11-12 04:56] LABS: ALT (GPT) 22 U/L (12-78); ANION GAP 7 MEQ/L (5-15); AST (GOT) 20 U/L (15-37); BICARBONATE 28.3 MEQ/L (21.0-32.0); BLOOD UREA NITROGEN 25 MG/DL (7-18); CHLORIDE 111 MEQ/L (98-107); GLOMERULAR FILTRATION RATE 137 ML/MIN (>89); POTASSIUM 4.3 MEQ/L (3.5-5.1); SODIUM (NA) 146 MEQ/L (136-145)
[2016-11-12 04:58] LABS: ALKALINE PHOSPHATASE 121 U/L (45-117); TOTAL BILIRUBIN ADULT 0.5 MG/DL (0.2-1.0)
[2016-11-12] MEDS: INSULIN NovoLIN REGULAR SUPPLEMENTAL SCALE SQ SCH ×4 (06:00→17:52)
--- NOTE | 2016-11-12 06:10 | RADRPT ---
EXAM DATE/TIME: 11/12/2016 04:49 [facility] COMPARISON: CHEST SINGLE AP, November 11, 2016, 2:50. INDICATIONS : Shortness of breath. MEDICAL HISTORY : Chronic obstructive pulmonary disease. Congestive heart failure. SURGICAL HISTORY : None. ENCOUNTER: Subsequent ACUITY: 4 - 6 days PAIN SCORE: Non-responsive. LOCATION: Bilateral chest FINDINGS: Cardiomegaly and left lower lobe and right medial basilar consolidation. Small effusions are suspecte d. Endotracheal tube enteric tube and right jugular line are again seen. There is a catheter seen at the right lung base. CONCLUSION: No significant change has occurred. Don Soto MD on November 12, 2016 at 6:08 Board Certified Radiologist. This report was verified electronically.
[2016-11-12] MEDS: methylPREDNISolone SOD SUCC 125 MG/2 ML VIAL IV PUSH SCH (08:19)
[2016-11-12] MEDS: SODIUM CHLORIDE 0.9% FLUSH 5 ML FLUSH FLUSH SCH ×2 (08:19→19:10)
[2016-11-12] MEDS: CHLORHEXIDINE 0.12% (ORAL KIT) 15 ML CUP MT SCH ×2 (08:20→19:18)
[2016-11-12] MEDS: SODIUM CHLORIDE 0.9% FLUSH 5 ML FLUSH IVF SCH (08:20)
[2016-11-12] MEDS: LORazepam 2 MG/ML VIAL IV PUSH PRN (08:21)
--- NOTE | 2016-11-12 13:48 | HHI.CCPN ---
Subjective Remarks/Hospital Course This is an 81-year-old male who has had multiple readmissions over the past few months for a recurrent right-sided pleural effusion. He represents from his retirement facility with recurrent right-sided pleural effusion as well as hypoxia and somnolence. He was found to have significant hypercarbia and a PCO2 in the 90s. He was initially placed on BiPAP and admitted to the [facility]. He became more somnolent and his oxygen saturation began to decline. At this point a critical care medicine is consulted to evaluate and manage his hypercarbic respiratory failure. Because he is failed his trial of noninvasive positive pressure ventilation, we will move towards intubating the patient. I evaluated the patient and he is essentially unresponsive and obtunded and only minimally withdrawing to pain. I can obtain no additional history from the patient. Subjective: 11/09: Early this a.m. at approximately 06:30 the patient was noted to have a grand mal seizure lasting approximately 60 seconds followed by a small tonic- clonic seizure lasting 30 seconds involving the lower extremities. The patient received Ativan 2 mg with cessation of seizure activity. Stat CT of the brain without contrast was obtained showed no acute abnormality. EEG was obtained previously awaiting results. Prior to the event the patient was noted to be on a fentanyl infusion at approximately 250 mcg/h. The patient was noted to be a GCS 10T, squeezing my hand. 11/10: The patient was noted to have multiple seizures requiring interventions with IV Ativan. Described as tonic-clonic in nature with eyes rolled back in the head. Gross motor movement shaking 4 extremities. Today the patient was noted to have a positive growth and blood cultures. WBC count elevated. Ammonia level was drawn less than 10, lactate was noted to be 2.2 this morning. Pleural fluid culture negative growth to date. 11/11: On stimulation patient continues to have jerking movement of all extremities. EEG negative for seizures. Check MRI today. Dr. Kirkland is neurology. Remains on 2 mcg/min of Levophed 11/12: Per neurologist, patient had witnessed with tonic convulsions started over right arm and propagated to left UE and both LE with fluttering of the eyes and upward gaze.Loaded with Dilantin iv infusion and a maintenance dose of 100mg Q8h, Stat EEG negative for seizures. Its unclear to me whether it is seizure or myoclonus Objective Vital Signs Date Time Temp Pulse Resp B/P Pulse Ox O2 Delivery O2 Flow Rate FiO2 11/12/16 13:15 96 40 11/12/16 12:00 80 11/12/16 12:00 98.0 22 102/54 133/47 Intake and Output 11/11/16 11/11/16 11/12/16 08:00 16:00 00:00 Intake Total 357 ml 845 ml 584 ml Output Total 200 ml 250 ml 300 ml Balance 157 ml 595 ml 284 ml Result Diagram: 11/12/166 11/12/16405 Imaging Last [address] 11/07/161955 Signed Impressions: Service Date/Time: October 20:38 - CONCLUSION: No acute intracranial abnormality demonstrated. Chronic white matter and old ischemic changes. Dhruv Foster MD Chest X-Ray 11/07/161955 Signed Impressions: Service Date/Time: October 20:54 - CONCLUSION: Worsening bilateral airspace disease and pleural effusions. Dhruv Foster MD Objective Remarks GENERAL: This is a elderly critically ill-appearing cachectic male, intubated and sedated with Versed and Fentanyl HEENT: Normocephalic. Atraumatic. Pupils equal, round, reactive. Mucous membranes are moist and pink. NECK: Trachea is midline. No JVD. Orotracheally intubated CHEST: Right sided chest tube connected to pleural vac at 40 cm of water pressure. Distant breath sounds. No air leak CARDIOVASCULAR: Normal rate, regular rhythm. No appreciable murmurs. ABDOMEN: After, nontender, nondistended. No guarding. MUSCULOSKELETAL: 1+ peripheral edema. Distal pulses 2+ NEUROLOGICAL: RASS -4. GCS 3T. On central pain, patient slightly withdraws lower extremities. also develops seizure-like activity and stimulation Date of Insertion: Nov 08, 2016 Side: Right Location: Internal, Jugular A/P Assessment and Plan Assessment: This is an 81-year-old male with history of prior recurrent right pleural effusions and COPD now presents with acute type II hypercarbic and hypoxic respiratory failure which has clearly failed noninvasive positive pressure ventilation. Intubated and placed on mechanical ventilation.Covering COPD exacerbation, as well as healthcare associated pneumonia given his history of being on Levaquin at his retirement facility. He remains critically ill. I am not sure that we will be able to get him through this hospitalization , and his recurrent respiratory failures are clearly making him more deconditioned every time he comes in the hospital. Despite this, his daughter continues to progress for aggressive measures. Plan by systems: Neurologic: Seizure vs Myoclonus CO2 narcosis Metabolic encephalopathy Mild dementia Fentanyl infusion and Versed infusion Vent synchrony and possible seizure. -Discontinue Versed infusion if okay with Dr. Kirkland -Ativan PRN for breakthrough seizures -EEG negative 11/10/15. 11/11/16 -11/08 CT of the brain-no acute abnormality. 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 Also question of amyloid -EEG-11/08-moderate to severe encephalopathy no clinical seizure Respiratory: Acute hypercarbic and hypoxic respiratory failure Recurrent right pleural effusion s/p chest tube placement Right pneumothorax Possible healthcare associated pneumonia COPD exacerbation Methylprednisolone 60 mg IV every 12 Nebs every 4 and every 2 when necessary -Pulmonary Dr. Valenzuela, patient will need pleurodesis prior to removal of chest tube Head of bed at 30, Vent bundle Wean FiO2 for goal SPO2 greater than 90% Daily SBT, mental status will not permit extubation 11/08 S/P CT guided IR drainage of recurrent right posterior pleural effusion, unable to perform pleurodesis, maintain 40cm of suction to pleuravac Antibiotics as described below Cardiovascular: Severe pulmonary hypertension A. fib RVR Hypertension Maintain map greater than 60-65 Hold home antihypertensives -Currently on Levophed infusion, weaning doses -Monitor CVP Diuresis as below Renal: Maintain Vital for accurate --Strict I/Os FEN/GI: Acute intravascular volume overload Acute protein calorie malnutritionsevere Metabolic alkalosis Continue tube feeds, Jevity 1.5 goal rate 60 cc/hour ICU electrolyte protocol Lasix 40 mg IV twice a day on hold Diamox 500 mg discontinued Heme/ID: Possible healthcare associated pneumonia COPD exacerbation Leukocytosis Daily CBC, WBC count stable 11.5 today - lactate level 2.2 this am, follow trend - ID consulted by Dr. Gaspar Does not meet transfusion triggers at this time Vancomycin with pharmacy dosing, Cefepime, Azithromycin (day 3) 11/08 blood -micrococcus 08/28 possible contaminant - sputum culture, urine cultures-NGTD Endocrine: Hyperglycemia of critical illness -- SSI, medium scale, every 6 hours Prophylaxis: GI Prophylaxis Protonix 40 mg IV every 24 hours DVT Prophylaxis -- SCDs Patient on Coumadin, INR 1.9 pharmacy consulted for Coumadin dosing Lines: Peripheral IVsx 2 . central line Vital Dispo: Discussed medical update with daughter who desires aggressive treatment at this time. spoke with GAMING ASSOCIATE at bedside This patient remains critically ill with one or more organ systems which are or may become a threat to life. I have spent in excess of 32 minutes discontinuously in the care and management of this patient. This time is exclusive of procedures, and includes, but is not limited to, evaluation of the patient, review of the medical record, discussions with family, consultants, nursing staff, or respiratory therapy, and documentation in the medical record. Rebecca Bartlett MD Nov 12, 2016 13:48
--- NOTE | 2016-11-12 15:24 | HHI.PR ---
Review/Management Diagnosis Tonic/myoclonic seizures likely related to brain hypoxia EEG with no evidence of ictal activity Plan Neuro checks q. one hourly. Dilantin 100mg Q8h DVT prophylaxis. Seizure prophylaxis. Diagnosis/Plan: Subjective Subjective Comments The myoclonic activity is less frequent and less intense Dilantin lvel is therapeutic Active Medications Current Medications Medications (Trade) Dose Ordered Sig/Sonia Route Start Time Stop Time Status Last Admin (NS Flush) 2 ml UNSCH PRN FLUSH 11/07/16 22:00 11/10/16 09:32 (NS Flush) 2 ml BID FLUSH 11/08/16 09:00 11/12/16 08:19 (Narcan Inj) 0.4 mg UNSCH PRN IV 11/07/16 22:00 (Tenormin) 50 mg BID PO 11/08/16 09:00 Hold (Capoten) 50 mg TIDAC PO 11/08/16 08:00 Hold (Coumadin) 5 mg DAILY@16 PO 11/08/16 16:00 11/11/16 16:04 (Tylenol) 650 mg Q4H PRN PO 11/08/16 01:30 Furosemide 20 mg 20 mg BID@09,18 IV PUSH 11/08/16 09:00 Hold 11/10/16 09:32 Pharmacy Profile Note 0 ml @ 0 mls/hr UNSCH OTHER 11/08/16 03:45 Cefepime HCl 1000 mg/Sodium Chloride 100 ml @ 200 mls/hr Q8H IV 11/08/16 06:00 11/12/16 14:29 (Zithromax Inj/ NS 250 ml Inj) 250 ml @ 250 mls/hr Q24H IV 11/08/16 20:00 11/11/16 22:24 Miscellaneous Information Patient in critical care unit? Ass... Q361D XX 11/08/16 04:00 11/08/16 04:00 (Chlorhexidine 2% Cloth) 3 pack UNSCH PRN TOP 11/08/16 04:00 11/13/16 03:59 (Peridex 0.12% Liq) 15 ml BID@08,20 MT 11/08/16 08:00 11/12/16 08:20 (D50w (Vial) Inj) 25 ml UNSCH PRN IV PUSH 11/08/16 05:45 Insulin Human Regular 1 1 Q6HR SQ 11/08/16 06:00 11/11/16 17:16 (fentaNYL DRIP) 250 ml @ 0 mls/hr TITRATE IV 11/08/16 05:45 11/12/16 04:11 (NS Flush) DAILY IVF 11/09/16 09:00 11/12/16 08:20 IV Flush UNSCH PRN IVF 11/08/16 09:45 11/11/16 08:00 Potassium Chloride 100 ml @ 50 mls/hr Q2H PRN IV 11/08/16 11:15 11/10/16 03:19 Potassium Chloride 100 ml @ 50 mls/hr Q2H PRN IV 11/08/16 11:15 Potassium Chloride 100 ml @ 25 mls/hr UNSCH PRN IV 11/08/16 11:15 Potassium Chloride 100 ml @ 50 mls/hr Q2H PRN IV 11/08/16 11:15 (Magnesium Sulfate Inj/NS Inj) 100 ml @ 50 mls/hr UNSCH PRN IV 11/08/16 11:15 Magnesium Oxide 800 mg 800 mg UNSCH PRN PO 11/08/16 11:15 (Magnesium Sulfate Inj/NS Inj) 100 ml @ 50 mls/hr UNSCH PRN IV 11/08/16 11:15 Potassium Phosphate 2000 mg 2,000 mg Q4H PRN PO 11/08/16 11:15 (Sodium Phosphate Inj/NS 250 ml Inj) 250 ml @ 42 mls/hr UNSCH PRN IV 11/08/16 11:15 Potassium Phosphate 2000 mg 2,000 mg UNSCH PRN PO/TUBE 11/08/16 11:15 Potassium Phosphate 30 mmol/ Sodium Chloride 260 ml @ 42 mls/hr UNSCH PRN IV 11/08/16 11:15 Vancomycin HCl 1250 mg/Sodium Chloride 262.5 ml @ 262.5 mls/ hr Q18H IV 11/08/16 23:00 11/11/16 22:35 (Levophed-Dextrose Drip) 250 ml @ 0 mls/hr TITRATE IV 11/08/16 23:45 11/11/16 07:26 Lorazepam 1 mg 1 mg Q3H PRN IV PUSH 11/09/16 05:00 11/12/16 08:21 Pharmacy Profile Note 0 ml @ 0 mls/hr UNSCH OTHER 11/11/16 07:45 (Versed Inj) 100 ml @ 0 mls/hr TITRATE IV 11/11/16 15:30 11/12/16 04:10 (Dilantin Inj) 100 mg Q8H IV PUSH 11/11/16 17:00 11/12/16 08:19 (SoluMEDROL INJ) 40 mg Q12HR IV PUSH 11/12/16 21:00 Allergies Allergies Coded Allergies No Known Allergies (Verified11/07/16) Exam I&O / VS 11/11/16 11/11/16 11/12/16 15:00 23:00 07:00 Intake Total 845 ml 584 ml 497 ml Output Total 250 ml 300 ml 200 ml Balance 595 ml 284 ml 297 ml Intake IV Total 470 ml 222 ml 249 ml Tube Feeding 315 ml 362 ml 248 ml Tube Irrigant 60 ml Output Urine Total 250 ml 300 ml 200 ml Chest Tube Drainage Total 0 ml 0 ml 0 ml # Bowel Movements 0 Vital Signs Date Time Temp Pulse Resp B/P Pulse Ox O2 Delivery O2 Flow Rate FiO2 11/12/16 13:15 96 40 11/12/16 12:00 80 11/12/16 12:00 40 11/12/16 12:00 98.0 80 22 102/54 96 133/47 11/12/16 10:35 94 40 11/12/16 10:00 75 11/12/16 08:00 40 11/12/16 08:00 80 11/12/16 08:00 97.7 74 22 146/66 97 151/55 11/12/16 07:34 96 40 11/12/16 06:00 67 11/12/16 04:14 97 40 11/12/16 04:00 40 11/12/16 04:00 97.6 66 25 116/55 97 112/53 11/12/16 04:00 66 11/12/16 02:00 65 11/12/16 01:01 97 40 11/12/16 00:00 67 11/12/16 00:00 97.8 67 25 144/61 97 147/76 11/12/16 00:00 40 11/11/16 22:00 72 11/11/16 20:00 70 11/11/16 20:00 97.8 70 22 136/64 98 120/44 11/11/16 20:00 40 11/11/16 19:16 99 40 11/11/16 18:00 83 11/11/16 16:42 95 40 11/11/16 16:00 40 11/11/16 16:00 98.6 91 22 146/90 95 128/54 11/11/16 16:00 91 Exam Comments GENERAL: The patient is vented and sedated, well-developed.Witnessed having a tonic seizure attack with myoclonus HEENT: Atraumatic, normocephalic. No conjunctival injection. NECK: No carotid bruit. CARDIOVASCULAR: Regular rate and rhythm. LUNGS: Respiration bilateral decreased air entry with scattered wheezes. NEUROLOGICAL: Vented and sedated. Pupils are 1 mm bilateral, sluggishly responding to light. upward deviation of both eyes. Plantars are bilateral, mute. Objective Micro and Labs Laboratory Tests Test 11/12/16 04:06 White Blood Count 11.5 Red Blood Count 3.19 Hemoglobin 10.4 Hematocrit 31.6 Mean Corpuscular Volume 98.8 Mean Corpuscular Hemoglobin 32.6 Mean Corpuscular Hemoglobin 33.0 Concent Red Cell Distribution Width 16.3 Platelet Count 117 Mean Platelet Volume 8.8 Neutrophils (%) (Auto) 91.8 Lymphocytes (%) (Auto) 4.2 Monocytes (%) (Auto) 4.0 Eosinophils (%) (Auto) 0.0 Basophils (%) (Auto) 0.0 Neutrophils # (Auto) 10.6 Lymphocytes # (Auto) 0.5 Monocytes # (Auto) 0.5 Eosinophils # (Auto) 0.0 Basophils # (Auto) 0.0 CBC Comment DIFF FINAL Differential Comment Prothrombin Time 21.5 Prothromb Time International 1.9 Ratio Sodium Level 146 Potassium Level 4.3 Chloride Level 111 Carbon Dioxide Level 28.3 Anion Gap 7 Blood Urea Nitrogen 25 Creatinine 0.57 Estimat Glomerular Filtration 137 Rate Random Glucose 162 Calcium Level 8.5 Total Bilirubin 0.5 Aspartate Amino Transf 20 (AST/SGOT) Alanine Aminotransferase 22 (ALT/SGPT) Alkaline Phosphatase 121 Total Protein 5.2 Albumin 2.1 Phenytoin (Dilantin) Level 11.0 Date/Time Procedure Status Source Growth 11/08/16 13:20 Gram Stain - Final Complete Fluid Pleural Fluid 11/08/16 13:20 Body Fluid Culture - Final Complete Fluid Pleural Fluid NO GROWTH IN 72 HRS.--AEROBICALLY OR ... 11/08/16 13:20 Fungal Smear - Final Resulted Fluid Pleural Fluid NO FUNGAL ELEMENTS SEEN. 11/08/16 13:20 Fungal Culture Resulted Fluid Pleural Fluid Pending 11/08/16 13:20 Acid Fast Stain - Final Resulted Fluid Pleural Fluid NO ACID FAST BACILLI SEEN 11/08/16 13:20 Mycobacterial Culture Resulted Fluid Pleural Fluid Pending 11/07/16 20:10 Aerobic Blood Culture - Final Complete Blood Peripheral Micrococcus Species 11/07/16 20:10 Anaerobic Blood Culture - Final Complete Blood Peripheral NO GROWTH IN 5 DAYS Deirdre Kirkland MD Nov 12, 2016 15:24
--- NOTE | 2016-11-12 16:47 | HHI.IDPN ---
Subjective Subjective Remarks doing OK some secretions present afebrile Less jerking movements after Ativan given Unremarkable MRI and EEG Antibiotics azithro cefepime vanco Allergies: Coded Allergies: No Known Allergies (Verified , 11/07/16) Objective . Vital Signs Date Time Temp Pulse Resp B/P Pulse Ox O2 Delivery O2 Flow Rate FiO2 11/12/16 15:29 100 40 11/12/16 14:00 84 11/12/16 13:15 96 40 11/12/16 12:00 80 11/12/16 12:00 40 11/12/16 12:00 98.0 80 22 102/54 96 133/47 11/12/16 10:35 94 40 11/12/16 10:00 75 11/12/16 08:00 40 11/12/16 08:00 80 11/12/16 08:00 97.7 74 22 146/66 97 151/55 11/12/16 07:34 96 40 11/12/16 06:00 67 11/12/16 04:14 97 40 11/12/16 04:00 40 11/12/16 04:00 97.6 66 25 116/55 97 112/53 11/12/16 04:00 66 11/12/16 02:00 65 11/12/16 01:01 97 40 11/12/16 00:00 67 11/12/16 00:00 97.8 67 25 144/61 97 147/76 11/12/16 00:00 40 11/11/16 22:00 72 11/11/16 20:00 70 11/11/16 20:00 97.8 70 22 136/64 98 120/44 11/11/16 20:00 40 11/11/16 19:16 99 40 11/11/16 18:00 83 11/11/16 11/11/16 11/12/16 15:00 23:00 07:00 Intake Total 845 ml 584 ml 497 ml Output Total 250 ml 300 ml 200 ml Balance 595 ml 284 ml 297 ml Intake IV Total 470 ml 222 ml 249 ml Tube Feeding 315 ml 362 ml 248 ml Tube Irrigant 60 ml Output Urine Total 250 ml 300 ml 200 ml Chest Tube Drainage Total 0 ml 0 ml 0 ml # Bowel Movements 0 . Laboratory Tests Test 11/11/16 11/12/16 04:20 04:06 White Blood Count 12.9 TH/MM3 11.5 TH/MM3 Red Blood Count 3.22 MIL/MM3 3.19 MIL/MM3 Hemoglobin 10.5 GM/DL 10.4 GM/DL Hematocrit 31.7 % 31.6 % Mean Corpuscular Volume 98.5 FL 98.8 FL Mean Corpuscular Hemoglobin 32.5 PG 32.6 PG Mean Corpuscular Hemoglobin 33.0 % 33.0 % Concent Red Cell Distribution Width 15.8 % 16.3 % Platelet Count 134 TH/MM3 117 TH/MM3 Mean Platelet Volume 8.9 FL 8.8 FL Neutrophils (%) (Auto) 92.6 % 91.8 % Lymphocytes (%) (Auto) 3.0 % 4.2 % Monocytes (%) (Auto) 4.2 % 4.0 % Eosinophils (%) (Auto) 0.0 % 0.0 % Basophils (%) (Auto) 0.2 % 0.0 % Neutrophils # (Auto) 11.9 TH/MM3 10.6 TH/MM3 Lymphocytes # (Auto) 0.4 TH/MM3 0.5 TH/MM3 Monocytes # (Auto) 0.5 TH/MM3 0.5 TH/MM3 Eosinophils # (Auto) 0.0 TH/MM3 0.0 TH/MM3 Basophils # (Auto) 0.0 TH/MM3 0.0 TH/MM3 CBC Comment DIFF FINAL DIFF FINAL Differential Comment Laboratory Tests Test 11/10/16 11/11/16 11/12/16 18:20 04:20 04:06 Lactic Acid Level 1.6 mmol/L Sodium Level 146 MEQ/L 146 MEQ/L Potassium Level 4.2 MEQ/L 4.3 MEQ/L Chloride Level 111 MEQ/L 111 MEQ/L Carbon Dioxide Level 27.4 MEQ/L 28.3 MEQ/L Anion Gap 8 MEQ/L 7 MEQ/L Blood Urea Nitrogen 24 MG/DL 25 MG/DL Creatinine 0.64 MG/DL 0.57 MG/DL Estimat Glomerular Filtration 120 ML/MIN 137 ML/MIN Rate Random Glucose 150 MG/DL 162 MG/DL Calcium Level 8.8 MG/DL 8.5 MG/DL Phosphorus Level 2.8 MG/DL Magnesium Level 2.2 MG/DL Total Bilirubin 0.5 MG/DL Aspartate Amino Transf 20 U/L (AST/SGOT) Alanine Aminotransferase 22 U/L (ALT/SGPT) Alkaline Phosphatase 121 U/L Total Protein 5.2 GM/DL Albumin 2.1 GM/DL Imaging Last Impressions Chest X-Ray 11/12/16 0600 Signed Impressions: Service Date/Time: Saturday, November 12, 2016 04:49 - CONCLUSION: No significant change has occurred. Don Soto MD Brain MRI 11/11/16 0000 Signed Impressions: Service Date/Time: Friday, November 11, 2016 12:53 - CONCLUSION: 1. 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 2. 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 The others would be consistent with punctate, remote areas of hemorrhage suggesting possibility of amyloid. Eitan Mendoza MD Head CT 11/09/16 0000 Signed Impressions: Service Date/Time: Wednesday, November 09, 2016 10:29 - CONCLUSION: Stable CT scan of the brain. Pradeep Rodriguez MD Chest Tube Insertion 11/08/16 0000 Signed Impressions: Service Date/Time: Tuesday, November 08, 2016 12:46 - CONCLUSION: Uncomplicated right chest tube placement as above. 1500 cc of fluid removed and sent for culture. Post CT scan reveals a large. pleural rind . The right lung may well not reexpanded. A.m. chest x-ray is pending. Cultures pending. Kun Mendoza MD FACR CT Angiography 11/07/16 0000 Signed Impressions: Service Date/Time: October 20:40 - CONCLUSION: 1. No pulmonary embolus. 2. Marked cardiac enlargement, especially the atria. 3. Bilateral effusions and atelectasis about the same on the left and considerably worse on the right. Right pneumothorax seen previously has resolved. Dhruv Foster MD Physical Exam CONSTITUTIONAL/GENERAL: This is an adequately nourished patient, in no apparent distress. Intubated on mechanical vent TUBES/LINES/DRAINS: SKIN: No jaundice, rashes, or lesions. CARDIOVASCULAR: Regular rate and rhythm without murmurs, gallops, or rubs. No JVD. Peripheral pulses symmetric. RESPIRATORY/CHEST: Symmetric, unlabored respirations. Clear to auscultation. Breath sounds equal bilaterally. No wheezes, rales, or rhonchi. GASTROINTESTINAL: Abdomen soft, non-tender, nondistended. No hepato-splenomegaly , or palpable masses. No guarding. Bowel sounds present. GENITOURINARY: Without palpable bladder distension. Vital catheter in place with clear dutch coloured urine MUSCULOSKELETAL: Extremities without clubbing, cyanosis, or edema. NEUROLOGICAL: Obtunded, opens eyes to tactivce stimulai. but not tracks or follows commands. Withdraws to noxious stimuli Some jerking movement s in BLE noted when is waking up PSYCHIATRIC: unable to assess Assessment & Plan Remarks Micrococcus bactermia, low grade doubt clin significance Recurrent R dside pleraul effusion, clx are negative suspected sz, neuro w/u in progress - EEG neg - MRI ? amiloidod=sis Low grade leukocytosis acute VDRF ? PNA - chk sputum clx - dc vancomycin if no MRSA in sputum - further rec's per sputum clx results Hyun Topete MD Nov 12, 2016 16:47
[2016-11-12] MEDS: WARFARIN SOD 5 MG TAB PO SCH (17:09)
[2016-11-12] MEDS: VANCOMYCIN INJ 1,250 MG in SODIUM CHLOR 0.9% 250 ML INJ 250 ML IV SCH (17:10)
[2016-11-12] MEDS: AZITHROMYCIN INJ 500 MG in SODIUM CHLOR 0.9% 250 ML INJ 250 ML IV SCH (19:10)
[2016-11-12] MEDS: methylPREDNISolone SOD SUCC 40 MG/1 ML VIAL IV PUSH SCH (19:10)
--- NOTE | 2016-11-12 19:17 | HHI.PR ---
Subjective Remarks 81 YOWM with VDRF,Pl effusion Right chest tube draining had 2 mg Ativan On PRVC AC Has Jerky movements EEG no sz Objective Vital Signs Vital Signs Date Time Temp Pulse Resp B/P Pulse Ox O2 Delivery O2 Flow Rate FiO2 11/12/16 18:00 84 11/12/16 16:00 98.0 81 22 109/59 95 119/47 11/12/16 16:00 40 11/12/16 16:00 81 11/12/16 15:29 100 40 11/12/16 14:00 84 11/12/16 13:15 96 40 11/12/16 12:00 80 11/12/16 12:00 40 11/12/16 12:00 98.0 80 22 102/54 96 133/47 11/12/16 10:35 94 40 11/12/16 10:00 75 11/12/16 08:00 40 11/12/16 08:00 80 11/12/16 08:00 97.7 74 22 146/66 97 151/55 11/12/16 07:34 96 40 11/12/16 06:00 67 11/12/16 04:14 97 40 11/12/16 04:00 40 11/12/16 04:00 97.6 66 25 116/55 97 112/53 11/12/16 04:00 66 11/12/16 02:00 65 11/12/16 01:01 97 40 11/12/16 00:00 67 11/12/16 00:00 97.8 67 25 144/61 97 147/76 11/12/16 00:00 40 11/11/16 22:00 72 11/11/16 20:00 70 11/11/16 20:00 97.8 70 22 136/64 98 120/44 11/11/16 20:00 40 I/O 11/11/16 11/11/16 11/11/16 11/12/16 11/12/16 11/12/16 07:00 15:00 23:00 07:00 15:00 23:00 Intake Total 357 ml 845 ml 584 ml 497 ml 708 ml Output Total 200 ml 250 ml 300 ml 200 ml 670 ml Balance 157 ml 595 ml 284 ml 297 ml 38 ml Intake IV Total 357 ml 470 ml 222 ml 249 ml 217 ml Tube Feeding 315 ml 362 ml 248 ml 491 ml Tube Irrigant 60 ml Output Urine Total 200 ml 250 ml 300 ml 200 ml 300 ml Chest Tube Drainage Total 0 ml 0 ml 0 ml 370 ml # Bowel Movements 0 Result Diagram: 11/12/1640511/12/16405 Objective Remarks GENERAL: Elderly male, On Vent SKIN: Warm and dry. HEAD: Normocephalic. EYES: No scleral icterus. No injection or drainage. NECK: Supple, trachea midline. No JVD or lymphadenopathy. CARDIOVASCULAR: Regular rate and rhythm without murmurs, gallops, or rubs. RESPIRATORY: Breath sounds equal bilaterally. No accessory muscle use. Right chest tube draining GASTROINTESTINAL: Abdomen soft, non-tender, nondistended. MUSCULOSKELETAL: No cyanosis, or edema. BACK: Nontender without obvious deformity. No CVA tenderness. A/P Assessment and Plan VDRF Pleural effusion, s/p right chest tube Sz/ Encephalopathy AF CHF PLAN: Cont Vent support Chest tube to drain Will need Pleurodesis before pulling chest tube. Cont Abx On Coumadin, monitor INR CPAP trial in AM Ash Valenzuela MD Nov 12, 2016 19:17
[2016-11-13] VITALS (19 sets, daily range): BP systolic 110–146; BP diastolic 41–67; PULSE 77–109; RESP 20–22; TEMP 97.6–99.5; O2SAT 92–95
[2016-11-13] MEDS: INSULIN NovoLIN REGULAR SUPPLEMENTAL SCALE SQ SCH ×4 (00:19→18:00)
[2016-11-13] MEDS: PHENYTOIN INJ 100 MG/2 ML VIAL IV PUSH SCH ×3 (00:19→17:30)
[2016-11-13] MEDS: fentaNYL DRIP 250 ML IV SCH (00:25)
[2016-11-13] MEDS: RESP: ALBUTEROL 2.5 MG/IPRATROPIUM 0.5 MG NEB (SCH) INH ×6 (02:48→23:09)
[2016-11-13 04:26] LABS: INTERNATIONAL NORMALIZED RATIO 2.3 RATIO; PROTHROMBIN TIME - PATIENT 26.5 SEC (9.8-11.6)
[2016-11-13] MEDS: CEFEPIME INJ 1,000 MG in SODIUM CHLORIDE 0.9% INJ 100 ML IV SCH (04:59)
[2016-11-13] MEDS: CHLORHEXIDINE 0.12% (ORAL KIT) 15 ML CUP MT SCH ×2 (08:00→20:37)
[2016-11-13] MEDS: SODIUM CHLORIDE 0.9% FLUSH 5 ML FLUSH IVF SCH (09:00)
[2016-11-13] MEDS: methylPREDNISolone SOD SUCC 40 MG/1 ML VIAL IV PUSH SCH ×2 (09:48→20:36)
[2016-11-13] MEDS: SODIUM CHLORIDE 0.9% FLUSH 5 ML FLUSH FLUSH SCH ×2 (09:48→20:37)
[2016-11-13] MEDS: VANCOMYCIN INJ 1,250 MG in SODIUM CHLOR 0.9% 250 ML INJ 250 ML IV SCH (11:00)
--- NOTE | 2016-11-13 11:47 | HHI.CCPN ---
Subjective Remarks/Hospital Course This is an 81-year-old male who has had multiple readmissions over the past few months for a recurrent right-sided pleural effusion. He represents from his halfway facility with recurrent right-sided pleural effusion as well as hypoxia and somnolence. He was found to have significant hypercarbia and a PCO2 in the 90s. He was initially placed on BiPAP and admitted to the [facility]. He became more somnolent and his oxygen saturation began to decline. At this point a critical care medicine is consulted to evaluate and manage his hypercarbic respiratory failure. Because he is failed his trial of noninvasive positive pressure ventilation, we will move towards intubating the patient. I evaluated the patient and he is essentially unresponsive and obtunded and only minimally withdrawing to pain. I can obtain no additional history from the patient. Subjective: 11/09: Early this a.m. at approximately 06:30 the patient was noted to have a grand mal seizure lasting approximately 60 seconds followed by a small tonic- clonic seizure lasting 30 seconds involving the lower extremities. The patient received Ativan 2 mg with cessation of seizure activity. Stat CT of the brain without contrast was obtained showed no acute abnormality. EEG was obtained previously awaiting results. Prior to the event the patient was noted to be on a fentanyl infusion at approximately 250 mcg/h. The patient was noted to be a GCS 10T, squeezing my hand. 11/10: The patient was noted to have multiple seizures requiring interventions with IV Ativan. Described as tonic-clonic in nature with eyes rolled back in the head. Gross motor movement shaking 4 extremities. Today the patient was noted to have a positive growth and blood cultures. WBC count elevated. Ammonia level was drawn less than 10, lactate was noted to be 2.2 this morning. Pleural fluid culture negative growth to date. 11/11: On stimulation patient continues to have jerking movement of all extremities. EEG negative for seizures. Check MRI today. Dr. Kirkland is neurology. Remains on 2 mcg/min of Levophed 11/12: Per neurologist, patient had witnessed with tonic convulsions started over right arm and propagated to left UE and both LE with fluttering of the eyes and upward gaze.Loaded with Dilantin iv infusion and a maintenance dose of 100mg Q8h, Stat EEG negative for seizures. Its unclear to me whether it is seizure or myoclonus 11/13: No change in neuro status. Continues to have jerking movements off lower extremity when stimulated. EEG 2 have been negative for seizures. We'll hold sedation for neuro exam Objective Vital Signs Date Time Temp Pulse Resp B/P Pulse Ox O2 Delivery O2 Flow Rate FiO2 11/13/16 11:04 93 40 11/13/16 06:00 85 11/13/16 04:00 98.6 22 112/56 115/41 Intake and Output 11/12/16 11/12/16 11/13/16 08:00 16:00 00:00 Intake Total 497 ml 708 ml 1498 ml Output Total 200 ml 670 ml 560 ml Balance 297 ml 38 ml 938 ml Result Diagram: 11/12/1640511/12/16405 Imaging Last [address] 11/07/161955 Signed Impressions: Service Date/Time: October 20:38 - CONCLUSION: No acute intracranial abnormality demonstrated. Chronic white matter and old ischemic changes. Dhruv Foster MD Chest X-Ray 11/07/161955 Signed Impressions: Service Date/Time: October 20:54 - CONCLUSION: Worsening bilateral airspace disease and pleural effusions. Dhruv Foster MD Objective Remarks GENERAL: This is a elderly critically ill-appearing cachectic male, intubated and sedated with Versed and Fentanyl HEENT: Normocephalic. Atraumatic. Pupils equal, round, reactive. Mucous membranes are moist and pink. NECK: Trachea is midline. No JVD. Orotracheally intubated CHEST: Right sided chest tube connected to pleural vac at 40 cm of water pressure. Distant breath sounds. No air leak CARDIOVASCULAR: Normal rate, regular rhythm. No appreciable murmurs. ABDOMEN: After, nontender, nondistended. No guarding. MUSCULOSKELETAL: 1+ peripheral edema. Distal pulses 2+ NEUROLOGICAL: RASS -4. GCS 3T. On central pain, patient slightly withdraws lower extremities. also develops seizure-like activity on stimulation Date of Insertion: Nov 08, 2016 Side: Right Location: Internal, Jugular A/P Assessment and Plan Assessment: This is an 81-year-old male with history of prior recurrent right pleural effusions and COPD now presents with acute type II hypercarbic and hypoxic respiratory failure which has clearly failed noninvasive positive pressure ventilation. Intubated and placed on mechanical ventilation.Covering COPD exacerbation, as well as healthcare associated pneumonia given his history of being on Levaquin at his halfway facility. He remains critically ill. I am not sure that we will be able to get him through this hospitalization , and his recurrent respiratory failures are clearly making him more deconditioned every time he comes in the hospital. Despite this, his daughter continues to progress for aggressive measures. Plan by systems: Neurologic: Seizure vs Myoclonus CO2 narcosis Metabolic encephalopathy Mild dementia -Currently on Fentanyl infusion and Versed infusion Vent synchrony and possible seizure. Start daily sedation vacation -Ativan PRN for breakthrough seizures -EEG negative 11/10/15. 11/11/16 (moderate to severe encephalopathy, no seizure) -11/08 CT of the brain-no acute abnormality. 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 Also question of amyloid Respiratory: Acute hypercarbic and hypoxic respiratory failure Recurrent right pleural effusion s/p chest tube placement Right pneumothorax Possible healthcare associated pneumonia COPD exacerbation Methylprednisolone 60 mg IV every 12 Nebs every 4 and every 2 when necessary -Pulmonary Dr. Valenzuela, patient will need pleurodesis prior to removal of chest tube Head of bed at 30, Vent bundle Wean FiO2 for goal SPO2 greater than 90% Daily SBT, mental status will not permit extubation. Vent day 7 11/08 S/P CT guided IR drainage of recurrent right posterior pleural effusion, unable to perform pleurodesis, maintain 40cm of suction to pleuravac Antibiotics as described below Cardiovascular: Severe pulmonary hypertension A. fib RVR Hypertension Maintain map greater than 60-65 Hold home antihypertensives -Currently on Levophed infusion, weaning doses -Monitor CVP Diuresis as below Renal: Maintain Vital for accurate --Strict I/Os FEN/GI: Acute intravascular volume overload Acute protein calorie malnutritionsevere Metabolic alkalosis Continue tube feeds, Jevity 1.5 goal rate 60 cc/hour ICU electrolyte protocol Lasix 40 mg IV twice a day on hold Diamox 500 mg discontinued Heme/ID: Possible healthcare associated pneumonia COPD exacerbation Leukocytosis Daily CBC, WBC count stable 11.5 today - lactate level 2.2 this am, follow trend - ID consulted by Dr. Gaspar Does not meet transfusion triggers at this time Vancomycin with pharmacy dosing, Cefepime, Azithromycin (day 3) 11/08 blood -micrococcus 1/4 possible contaminant - sputum culture, urine cultures-NGTD Endocrine: Hyperglycemia of critical illness -- SSI, medium scale, every 6 hours Prophylaxis: GI Prophylaxis Protonix 40 mg IV every 24 hours DVT Prophylaxis -- SCDs Patient on Coumadin, INR 2.3 pharmacy consulted for Coumadin dosing Lines: Peripheral IVsx 2 . central line Vital Dispo: Discussed medical update with daughter who desires aggressive treatment at this time. spoke with AERIAL PHOTOGRAPHER at bedside This patient remains critically ill with one or more organ systems which are or may become a threat to life. I have spent in excess of 32 minutes discontinuously in the care and management of this patient. This time is exclusive of procedures, and includes, but is not limited to, evaluation of the patient, review of the medical record, discussions with family, consultants, nursing staff, or respiratory therapy, and documentation in the medical record. Rebecca Bartlett MD Nov 13, 2016 11:47
--- NOTE | 2016-11-13 15:05 | HHI.IDPN ---
Subjective Subjective Remarks remains on vent minimal secretions reported afebrile cont to have jerking movements Unremarkable MRI and EEG ? puncrtate hemorrhages Antibiotics azithro cefepime vanco Allergies: Coded Allergies: No Known Allergies (Verified , 11/07/16) Objective . Vital Signs Date Time Temp Pulse Resp B/P Pulse Ox O2 Delivery O2 Flow Rate FiO2 11/13/16 12:00 92 11/13/16 12:00 40 11/13/16 12:00 97.6 94 22 146/54 93 11/13/16 11:04 93 40 11/13/16 10:00 92 11/13/16 08:00 97.8 84 22 112/46 93 146/54 11/13/16 08:00 40 11/13/16 08:00 92 11/13/16 07:23 93 40 11/13/16 06:00 85 11/13/16 04:03 94 40 11/13/16 04:00 98.6 81 22 112/56 92 115/41 11/13/16 04:00 81 11/13/16 04:00 40 11/13/16 02:00 77 11/13/16 01:03 94 40 11/13/16 00:00 97.7 79 22 115/60 94 110/42 11/13/16 00:00 79 11/13/16 00:00 40 11/12/16 22:02 96 40 11/12/16 22:00 81 11/12/16 20:00 98.1 84 22 109/59 96 110/41 11/12/16 20:00 40 11/12/16 20:00 84 11/12/16 19:20 96 40 11/12/16 18:00 84 11/12/16 16:00 98.0 81 22 109/59 95 119/47 11/12/16 16:00 40 11/12/16 16:00 81 11/12/16 15:29 100 40 11/12/16 11/12/16 11/13/16 15:00 23:00 07:00 Intake Total 708 ml 1498 ml 536 ml Output Total 670 ml 560 ml 450 ml Balance 38 ml 938 ml 86 ml Intake IV Total 217 ml 1165 ml 245 ml Tube Feeding 491 ml 333 ml 291 ml Output Urine Total 300 ml 250 ml 250 ml Chest Tube Drainage Total 370 ml 310 ml 200 ml # Bowel Movements 0 0 . Laboratory Tests Test 11/12/16 04:06 White Blood Count 11.5 TH/MM3 Red Blood Count 3.19 MIL/MM3 Hemoglobin 10.4 GM/DL Hematocrit 31.6 % Mean Corpuscular Volume 98.8 FL Mean Corpuscular Hemoglobin 32.6 PG Mean Corpuscular Hemoglobin 33.0 % Concent Red Cell Distribution Width 16.3 % Platelet Count 117 TH/MM3 Mean Platelet Volume 8.8 FL Neutrophils (%) (Auto) 91.8 % Lymphocytes (%) (Auto) 4.2 % Monocytes (%) (Auto) 4.0 % Eosinophils (%) (Auto) 0.0 % Basophils (%) (Auto) 0.0 % Neutrophils # (Auto) 10.6 TH/MM3 Lymphocytes # (Auto) 0.5 TH/MM3 Monocytes # (Auto) 0.5 TH/MM3 Eosinophils # (Auto) 0.0 TH/MM3 Basophils # (Auto) 0.0 TH/MM3 CBC Comment DIFF FINAL Differential Comment Laboratory Tests Test 11/12/16 04:06 Sodium Level 146 MEQ/L Potassium Level 4.3 MEQ/L Chloride Level 111 MEQ/L Carbon Dioxide Level 28.3 MEQ/L Anion Gap 7 MEQ/L Blood Urea Nitrogen 25 MG/DL Creatinine 0.57 MG/DL Estimat Glomerular Filtration 137 ML/MIN Rate Random Glucose 162 MG/DL Calcium Level 8.5 MG/DL Total Bilirubin 0.5 MG/DL Aspartate Amino Transf 20 U/L (AST/SGOT) Alanine Aminotransferase 22 U/L (ALT/SGPT) Alkaline Phosphatase 121 U/L Total Protein 5.2 GM/DL Albumin 2.1 GM/DL Microbiology Date/Time Procedure Status Source Growth 11/12/16 17:00 Gram Stain - Final Resulted Sputum Endotracheal 11/12/16 17:00 Sputum Culture - Preliminary Resulted Sputum Endotracheal IMMATURE GROWTH - REINCUBATE Imaging Last Impressions Chest X-Ray 11/12/16 0600 Signed Impressions: Service Date/Time: Saturday, November 12, 2016 04:49 - CONCLUSION: No significant change has occurred. Don Soto MD Brain MRI 11/11/16 0000 Signed Impressions: Service Date/Time: Friday, November 11, 2016 12:53 - CONCLUSION: 1. 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 2. 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 The others would be consistent with punctate, remote areas of hemorrhage suggesting possibility of amyloid. Eitan Mendoza MD Head CT 11/09/16 0000 Signed Impressions: Service Date/Time: Wednesday, November 09, 2016 10:29 - CONCLUSION: Stable CT scan of the brain. Pradeep Rodriguez MD Chest Tube Insertion 11/08/16 0000 Signed Impressions: Service Date/Time: Tuesday, November 08, 2016 12:46 - CONCLUSION: Uncomplicated right chest tube placement as above. 1500 cc of fluid removed and sent for culture. Post CT scan reveals a large. pleural rind . The right lung may well not reexpanded. A.m. chest x-ray is pending. Cultures pending. Kun Mendoza MD FACR CT Angiography 11/07/16 0000 Signed Impressions: Service Date/Time: October 20:40 - CONCLUSION: 1. No pulmonary embolus. 2. Marked cardiac enlargement, especially the atria. 3. Bilateral effusions and atelectasis about the same on the left and considerably worse on the right. Right pneumothorax seen previously has resolved. Dhruv Foster MD Physical Exam CONSTITUTIONAL/GENERAL: This is an adequately nourished patient, in no apparent distress. Intubated on mechanical vent TUBES/LINES/DRAINS: SKIN: No jaundice, rashes, or lesions. CARDIOVASCULAR: Regular rate and rhythm without murmurs, gallops, or rubs. No JVD. Peripheral pulses symmetric. RESPIRATORY/CHEST: Symmetric, unlabored respirations. Clear to auscultation. Breath sounds equal bilaterally. No wheezes, rales, or rhonchi. GASTROINTESTINAL: Abdomen soft, non-tender, nondistended. No hepato-splenomegaly , or palpable masses. No guarding. Bowel sounds present. GENITOURINARY: Without palpable bladder distension. Vital catheter in place with clear dutch coloured urine MUSCULOSKELETAL: Extremities without clubbing, cyanosis, or edema. NEUROLOGICAL: remaions obtunded, opens eyes to tactivce stimulai. but not tracks or follows commands. Withdraws to noxious stimuli Some jerking movement s in BLE noted when stimulated PSYCHIATRIC: unable to assess Assessment & Plan Remarks Micrococcus bactermia, low grade doubt clin significance Recurrent R dside pleraul effusion, clx are negative suspected sz, neuro w/u in progress - EEG neg - MRI ? amiloidod=sis Low grade leukocytosis acute VDRF ? PNA - sputum with GNB - chk sputum clx - dc vancomycin if no MRSA in sputum - increase cefepime to 2 gm q 8 hrs - dc azithromycin - start levaquine - further rec's per final sputum clx results dw TULIO Topete,Hyun Dye MD Nov 13, 2016 15:05
[2016-11-13] MEDS ORDERED: LEVOFLOXACIN 750 MG PREMIX INJ 150 ML IV SCH (16:00)
--- NOTE | 2016-11-13 16:16 | PD.CONS ---
Consult Service Palliative Care . Consult Requested By Dr. Bartlett . Primary Care Physician No Primary Care Physician . Reason for Consultation a. To assist with evaluation and management of symptoms including: Encephalopathy, pain, dyspnea b. To assist medical decision maker(s) with: better understanding of current medical conditions; weighing benefits/burdens of medical treatment options; making medical treatment decisions. . (Sujatha Elliott) HPI History of Present Illness Mr. Duncan is an 81-year-old male with a history of atrial fibrillation, congestive heart failure with recurrent pleural effusions, chronic lower extremity venous stasis changes with cellulitis, O2 dependent COPD and dyslipidemia. The patient presented to [place] ED via EMS from [facility] on 11/07/16 4 evaluation of progressively worsening dyspnea and alterations in mental status. The patient was receiving [facility] for [facility]. Of note, the patient had been hospitalized for approximately 10 days in September with hypoxic respiratory failure requiring a chest tube for a large pleural effusion-which are recurrent. He underwent a thoracentesis which was complicated by a subsequent pneumothorax. He also had a pleurodesis during that hospitalization. Cardiothoracic surgeons were consulted at that time for possible decortication and felt the patient was not a candidate for any invasive procedures. Palliative care was also involved in his care, and the patient's family had indicated there medical treatment goals were aggressive. Upon presentation to the ED the patient was arousable to verbal stimuli, able to follow simple commands, but was unable to provide any medical history. He was tachypneic (respiratory rate in the 30s), requiring 6L oxygen via nasal cannula to maintain his oxygen saturation at 98%. His heart rate and blood pressure were also elevated. Diagnostic findings while in the ED include: * Vital signs: Pulse 109, respirations 32, BP 164/84, oxygen saturation 98% on 6 L via nasal cannula, oral temperature 97.5. * WBC: 4.9, hemoglobin 12.2, hematocrit 38.3, platelets 110, neutrophils 70.6 * Sodium: 143, potassium 4.3, chloride 97, carbon dioxide 42.2, glucose 80, calcium 8.5 * BUN 12, creatinine 0.65, GFR 118 * Lactic acid: 1.0 * Total bilirubin: 0.6, AST 28, ALT 28, alkaline phosphatase 218 * The total creatine kinase: 27 * Troponin: 0.02 * Total protein: 6.4, albumin 2.4 * TSH third-generation: 1.460 * PT: 14.2, INR 1.3, APTT 31.3 * Urinalysis normalculture not indicated * Blood culture growing micrococcus species * CT pulmonary angiogram: Showed no acute pulmonary embolus; marked cardiac enlargement, especially the atria; bilateral effusions and atelectasis about the same on the left and considerably worse on the right, right pneumothorax seen previously has resolved. * CT brain: No acute intracranial abnormalities were seen; chronic white matter and old ischemic changes noted. * Chest x-ray: Worsening bilateral airspace disease and pleural effusions. * EKG: Atrial fibrillation, right bundle branch block. No significant changes in comparison to prior tracing. Mr. Duncan is debilitated secondary to deconditioning. This will be his fourth hospitalization since March,. The ED physician addressed patient's CODE STATUS and his overall poor prognosis with the patient's daughter (Raissa) who was sitting at the patient's bedside. However, the patient's daughter stated she wanted everything done for her father so that she could eventually take him home. Patient was admitted for further evaluation and medical management of a large right pleural effusion, hypoxia and pneumonia. IV antibiotics were initiated. The patient was initially placed on BiPAP and transferred to the [facility]. However overnight on 11/08/16, the patient began increasingly somnolent and his oxygen saturations began to decline. Critical care was consulted for evaluation and management of hypercarbic respiratory failure. The patient subsequently required intubation and a right chest tube was placed for thoracentesis. Pulmonology was consulted. Dr. Valenzuela made recommendations for a pleurodesis secondary to recurrent pleural effusions after fluid. On IV steroids, methylprednisolone 60 mg IV every 12 hours. Early in the morning on 11/09/16 the patient was observed having grand mal seizure activity lasting approximately 60 seconds, followed by small tonic-clonic seizures involving the lower extremities which lasted approximately 30 seconds. Seizure activity resolved after the patient was administered 2 mg of lorazepam. Neurology was consulted. A stat CT of the brain showed no acute abnormalities, followed by an EEG which showed moderate to severe encephalopathy but no seizure activity was noted. Neurology felt there were no indications to start the patient on antiseizure medication but recommend repeat EEG if suspected seizure activity is reported/witness. Patient's WBC increased from 7.1-13.4 on 11/10/16. Lactate elevated at 2.2. Blood cultures growing gram-positive cocci in pairs and clusters. Patient remains afebrile but was noted to be hypothermic one day prior. Pleural fluid cultures were negative. Infectious disease was consultedpatient receiving antibiotics lincomycin, cefepime and azithromycin. Requiring small amount of Levophed to maintain blood pressures. 11/12/16: Patient remains sedated on mechanical ventilator. Seizure-like activity was again witnessed - described as tonic-clonic convulsions starting in the right arm, moving to the left arm, and to both lower extremities with fluttering of the eyes and in upper gaze. Patient received a loading dose of Dilantin infusion and was started on a maintenance dose of 100 mg every 8 hours. A stat EEG was again negative for seizure activity. Per neurology, tonic /myoclonic seizures possibly related to brain hypoxia. Today the patient is showing no changes in neurological status, continues to have jerking movements of his bilateral lower extremities with stimulation. Palliative Care was consulted to assist with symptom management and to discuss with the family the benefits and burdens of her current illnesses and the options regarding future care. . Function/Cognitive Trajectory Mr. Duncan is an 81-year-old male who has been declining since he was hospitalized in March,. At that time the patient presented with a large right pleural effusion requiring a thoracentesis. Since that time the patient has had several requiring thoracentesis, likely greater than 4. Prior to being hospitalized for 10 days in September, the patient was primarily independent and living alone. He was able to ambulate with a walker and was still able to dress and bathe himself. The patient's daughter reported he was incontinent of bowel and bladder. She was assisting him with shopping and meal preparation. In September, the patient was cognitively intact. He required continuous oxygen at home2 L via nasal cannula. The patient reports she removed all alcohol from her father's house in February, stating she felt her father had a "problem"with alcohol. Upon discharge from [facility] on 10/20/16, the patient was transferred to [facility] and remained there until he was rehospitalized a few days ago. . (Sujatha Elliott) Review of Systems ROS Limitations: Clinical Condition, Intubated (patient is critically ill), Altered Mental Status (Sujatha Elliott) Past Family Social History Uncoded Allergies: dairy products (Allergy, Severe, causes mucous buildup in nose/throat, eyes , and lungs, 11/27/16) Past Medical History Recent hospitalization from 10/06/16-10/20/16 due to respiratory failure from pleural effusions status post chest tube placement, followed by pleurodesis with talc on October 16, 2016. Patient was evaluated by cardiothoracic surgeon and he is not a candidate for decortication/aggressive measures. 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 Past Surgical History Right eye surgery Knee surgery in 1995, while in the Reported Medications Captopril 50mg PO TIDAC Warfarin 5 mg by mouth daily Ciclopirox topical 8% solution QD at bedtime Alprazolam 0.25 mg by mouth every 6 hours as needed for anxiety Atenolol 50 mg by mouth BID Furosemide 20 mg by mouth daily Potassium ER 10 mEq by mouth daily Ginkgo Biloba 120 mg tablet physical 140 mg capsule [place]-3 fatty acids 1000 mg capsule . Current Medications Medications (Trade) Dose Ordered Sig/Sonia Route Start Time Stop Time Status Last Admin (NS Flush) 2 ml UNSCH PRN FLUSH 11/07/16 22:00 11/10/16 09:32 (NS Flush) 2 ml BID FLUSH 11/08/16 09:00 11/13/16 09:48 (Narcan Inj) 0.4 mg UNSCH PRN IV 11/07/16 22:00 (Tenormin) 50 mg BID PO 11/08/16 09:00 Hold (Capoten) 50 mg TIDAC PO 11/08/16 08:00 Hold (Tylenol) 650 mg Q4H PRN PO 11/08/16 01:30 Furosemide 20 mg 20 mg BID@09,18 IV PUSH 11/08/16 09:00 Hold 11/10/16 09:32 Pharmacy Profile Note 0 ml @ 0 mls/hr UNSCH OTHER 11/08/16 03:45 Cefepime HCl 1000 mg/Sodium Chloride 100 ml @ 200 mls/hr Q8H IV 11/08/16 06:00 11/13/16 04:59 (Zithromax Inj/ NS 250 ml Inj) 250 ml @ 250 mls/hr Q24H IV 11/08/16 20:00 11/12/16 19:10 Miscellaneous Information Patient in critical care unit? Ass... Q361D XX 11/08/16 04:00 11/08/16 04:00 (Peridex 0.12% Liq) 15 ml BID@08,20 MT 11/08/16 08:00 11/12/16 19:18 (D50w (Vial) Inj) 25 ml UNSCH PRN IV PUSH 11/08/16 05:45 Insulin Human Regular 1 1 Q6HR SQ 11/08/16 06:00 11/13/16 00:19 (fentaNYL DRIP) 250 ml @ 0 mls/hr TITRATE IV 11/08/16 05:45 11/13/16 00:25 (NS Flush) DAILY IVF 11/09/16 09:00 11/12/16 08:20 IV Flush UNSCH PRN IVF 11/08/16 09:45 11/11/16 08:00 Potassium Chloride 100 ml @ 50 mls/hr Q2H PRN IV 11/08/16 11:15 11/10/16 03:19 Potassium Chloride 100 ml @ 50 mls/hr Q2H PRN IV 11/08/16 11:15 Potassium Chloride 100 ml @ 25 mls/hr UNSCH PRN IV 11/08/16 11:15 Potassium Chloride 100 ml @ 50 mls/hr Q2H PRN IV 11/08/16 11:15 (Magnesium Sulfate Inj/NS Inj) 100 ml @ 50 mls/hr UNSCH PRN IV 11/08/16 11:15 Magnesium Oxide 800 mg 800 mg UNSCH PRN PO 11/08/16 11:15 (Magnesium Sulfate Inj/NS Inj) 100 ml @ 50 mls/hr UNSCH PRN IV 11/08/16 11:15 Potassium Phosphate 2000 mg 2,000 mg Q4H PRN PO 11/08/16 11:15 (Sodium Phosphate Inj/NS 250 ml Inj) 250 ml @ 42 mls/hr UNSCH PRN IV 11/08/16 11:15 Potassium Phosphate 2000 mg 2,000 mg UNSCH PRN PO/TUBE 11/08/16 11:15 Potassium Phosphate 30 mmol/ Sodium Chloride 260 ml @ 42 mls/hr UNSCH PRN IV 11/08/16 11:15 Vancomycin HCl 1250 mg/Sodium Chloride 262.5 ml @ 262.5 mls/ hr Q18H IV 11/08/16 23:00 11/12/16 17:10 (Levophed-Dextrose Drip) 250 ml @ 0 mls/hr TITRATE IV 11/08/16 23:45 11/11/16 07:26 Lorazepam 1 mg 1 mg Q3H PRN IV PUSH 11/09/16 05:00 11/12/16 08:21 Pharmacy Profile Note 0 ml @ 0 mls/hr UNSCH OTHER 11/11/16 07:45 (Versed Inj) 100 ml @ 0 mls/hr TITRATE IV 11/11/16 15:30 11/12/16 21:52 (Dilantin Inj) 100 mg Q8H IV PUSH 11/11/16 17:00 11/13/16 09:48 (SoluMEDROL INJ) 40 mg Q12HR IV PUSH 11/12/16 21:00 11/13/16 09:48 (Coumadin) 3 mg DAILY@16 PO 11/13/16 16:00 . Family History Patient's father had heart disease. . Substance Use Tobacco: Previous smoker, approximately 40 year history of cigarette smoking. Alcohol: Previously the patient admitted to 2-3 drinks per dayespecially wine. The patient's daughter believes EtOH has been a problem for the patient. Prescription med abuse: No known history of prescription drug abuse. Illicits: Patient previously admitted to marijuana use. . Psychosocial History Patient is originally from [facility] but has lived in [place] since . 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 He was and , many years ago. He has 2 children. His daughter, Raissa daniels, lives locally and is very involved in the patient's care. The patient also has a son living in [place], but reportedly has not seen him in the last 5 years. The patient does keep in touch. The patient lives alone. His daughter lives a few blocks away and assist the patient with shopping and meal preparation. . Spiritual/Cultural Factors The patient comes from [place] tradition. Per his daughter, spiritism and spirituality have not been an important part of his life. . (Sujatha Elliott) Health Care Surrogate(s): ==No written designation of health care surrogacy. ==Patient , has on several occasions, verbally stated that he wants BOTH of his childrent to participate in health care decision making if he is incapacitated to do so. . Ethical and Legal Issues Per [place] statutes, in the absence of written advanced directives healthcare proxy decision making would fall to the patient's 2 adult children. . (Sujatha Elliott) Physical Exam Vital Signs Date Time Temp Pulse Resp B/P Pulse Ox O2 Delivery O2 Flow Rate FiO2 11/13/16 12:00 92 11/13/16 12:00 40 11/13/16 12:00 97.6 94 22 146/54 93 11/13/16 11:04 93 40 11/13/16 10:00 92 11/13/16 08:00 97.8 84 22 112/46 93 146/54 11/13/16 08:00 40 11/13/16 08:00 92 11/13/16 07:23 93 40 11/13/16 06:00 85 11/13/16 04:03 94 40 11/13/16 04:00 98.6 81 22 112/56 92 115/41 11/13/16 04:00 81 11/13/16 04:00 40 11/13/16 02:00 77 11/13/16 01:03 94 40 11/13/16 00:00 97.7 79 22 115/60 94 110/42 11/13/16 00:00 79 11/13/16 00:00 40 11/12/16 22:02 96 40 11/12/16 22:00 81 11/12/16 20:00 98.1 84 22 109/59 96 110/41 11/12/16 20:00 40 11/12/16 20:00 84 11/12/16 19:20 96 40 11/12/16 18:00 84 11/12/16 16:00 98.0 81 22 109/59 95 119/47 11/12/16 16:00 40 11/12/16 16:00 81 11/12/16 15:29 100 40 . 11/12/16 11/13/16 19:00 07:00 Intake Total 708 ml 2034 ml Output Total 670 ml 1010 ml Balance 38 ml 1024 ml Intake IV Total 217 ml 1410 ml Tube Feeding 491 ml 624 ml Output Urine Total 300 ml 500 ml Chest Tube Drainage Total 370 ml 510 ml # Bowel Movements 0 . Exam CONSTITUTIONAL/GENERAL: This is a frail, elderly male patient sedated and intubated on mechanical ventilator. TUBES/LINES/DRAINS: Right IJ central line, left arterial line, left PIV, Pleur- evac chest tube, ETT, OG, soft restraints, SCDs SKIN: Ecchymoses on upper extremities. Right sided chest tube, without air leak. Patient is pale, skin is warm to touch. Skin tear right knee HEAD: Atraumatic. Normocephalic. EYES: Pupils small, equal and sluggish. . ENT: Hearing grossly normal. Nose without bleeding or purulent drainage. Orotracheally intubated. NECK: Trachea midline. Supple, nontender. No palpable thyroid enlargement or nodularity. CARDIOVASCULAR: Tachycardic, regular rhythm. No murmurs, gallops, or rubs. Peripheral pulses symmetric. RESPIRATORY/CHEST: Orotracheally intubated on mechanical ventilator. Breath sounds diminished. No wheezes, rales, or rhonchi. GASTROINTESTINAL: Abdomen soft, non-tender, nondistended. No guarding. Bowel sounds present. GENITOURINARY: Without palpable bladder distension. Vital catheter in place. MUSCULOSKELETAL: Extremities without clubbing, cyanosis, or edema. s LYMPHATICS: No palpable cervical or supraclavicular adenopathy. NEUROLOGICAL: Opens eyes to verbal stimuli, nonverbal, does not follow commands. PSYCHIATRIC: Unable to assess secondary to patient's clinical condition. . (Sujatha Elliott) Diagnostic Tests Laboratory Laboratory Tests Test 11/10/16 11/10/16 11/11/16 11/11/16 16:22 18:20 04:20 08:20 Blood Gas Puncture Site ART LINE Blood Gas Patient Temperature 98.6 Blood Gas HCO3 25 mmol/L (22-26) Blood Gas Base Excess 2.0 mmol/L (-2-2) Blood Gas Oxygen Saturation 96 % (90-100) Arterial Blood pH 7.50 (7.380-7.420) Arterial Blood Partial 33 mmHg (38-42) Pressure CO2 Arterial Blood Partial 110 mmHg Pressure O2 (61-120) Arterial Blood Oxygen Content 16.5 Vol % (12.0-20.0) Arterial Blood 1.4 % (0-4) Carboxyhemoglobin Arterial Blood Methemoglobin 1.1 % (0-2) Blood Gas Hemoglobin 12.1 G/DL (12.0-16.0) Oxygen Delivery Device VENTILATOR Blood Gas Ventilator Setting Blood Gas Inspired Oxygen 40 % Lactic Acid Level 1.6 mmol/L (0.4-2.0) White Blood Count 12.9 TH/MM3 (4.0-11.0) Red Blood Count 3.22 MIL/MM3 (4.50-5.90) Hemoglobin 10.5 GM/DL (13.0-17.0) Hematocrit 31.7 % (39.0-51.0) Mean Corpuscular Volume 98.5 FL (80.0-100.0) Mean Corpuscular Hemoglobin 32.5 PG (27.0-34.0) Mean Corpuscular Hemoglobin 33.0 % Concent (32.0-36.0) Red Cell Distribution Width 15.8 % (11.6-17.2) Platelet Count 134 TH/MM3 (150-450) Mean Platelet Volume 8.9 FL (7.0-11.0) Neutrophils (%) (Auto) 92.6 % (16.0-70.0) Lymphocytes (%) (Auto) 3.0 % (9.0-44.0) Monocytes (%) (Auto) 4.2 % (0.0-8.0) Eosinophils (%) (Auto) 0.0 % (0.0-4.0) Basophils (%) (Auto) 0.2 % (0.0-2.0) Neutrophils # (Auto) 11.9 TH/MM3 (1.8-7.7) Lymphocytes # (Auto) 0.4 TH/MM3 (1.0-4.8) Monocytes # (Auto) 0.5 TH/MM3 (0-0.9) Eosinophils # (Auto) 0.0 TH/MM3 (0-0.4) Basophils # (Auto) 0.0 TH/MM3 (0-0.2) CBC Comment DIFF FINAL Differential Comment Sodium Level 146 MEQ/L (136-145) Potassium Level 4.2 MEQ/L (3.5-5.1) Chloride Level 111 MEQ/L (98-107) Carbon Dioxide Level 27.4 MEQ/L (21.0-32.0) Anion Gap 8 MEQ/L (5-15) Blood Urea Nitrogen 24 MG/DL (7-18) Creatinine 0.64 MG/DL (0.60-1.30) Estimat Glomerular Filtration 120 ML/MIN Rate (>89) Random Glucose 150 MG/DL (74-106) Calcium Level 8.8 MG/DL (8.5-10.1) Phosphorus Level 2.8 MG/DL (2.5-4.9) Magnesium Level 2.2 MG/DL (1.5-2.5) Prothrombin Time 21.6 SEC (9.8-11.6) Prothromb Time International 1.9 RATIO Ratio Test 11/12/16 11/13/16 04:06 03:31 White Blood Count 11.5 TH/MM3 (4.0-11.0) Red Blood Count 3.19 MIL/MM3 (4.50-5.90) Hemoglobin 10.4 GM/DL (13.0-17.0) Hematocrit 31.6 % (39.0-51.0) Mean Corpuscular Volume 98.8 FL (80.0-100.0) Mean Corpuscular Hemoglobin 32.6 PG (27.0-34.0) Mean Corpuscular Hemoglobin 33.0 % Concent (32.0-36.0) Red Cell Distribution Width 16.3 % (11.6-17.2) Platelet Count 117 TH/MM3 (150-450) Mean Platelet Volume 8.8 FL (7.0-11.0) Neutrophils (%) (Auto) 91.8 % (16.0-70.0) Lymphocytes (%) (Auto) 4.2 % (9.0-44.0) Monocytes (%) (Auto) 4.0 % (0.0-8.0) Eosinophils (%) (Auto) 0.0 % (0.0-4.0) Basophils (%) (Auto) 0.0 % (0.0-2.0) Neutrophils # (Auto) 10.6 TH/MM3 (1.8-7.7) Lymphocytes # (Auto) 0.5 TH/MM3 (1.0-4.8) Monocytes # (Auto) 0.5 TH/MM3 (0-0.9) Eosinophils # (Auto) 0.0 TH/MM3 (0-0.4) Basophils # (Auto) 0.0 TH/MM3 (0-0.2) CBC Comment DIFF FINAL Differential Comment Prothrombin Time 21.5 SEC 26.5 SEC (9.8-11.6) (9.8-11.6) Prothromb Time International 1.9 RATIO 2.3 RATIO Ratio Sodium Level 146 MEQ/L (136-145) Potassium Level 4.3 MEQ/L (3.5-5.1) Chloride Level 111 MEQ/L (98-107) Carbon Dioxide Level 28.3 MEQ/L (21.0-32.0) Anion Gap 7 MEQ/L (5-15) Blood Urea Nitrogen 25 MG/DL (7-18) Creatinine 0.57 MG/DL (0.60-1.30) Estimat Glomerular Filtration 137 ML/MIN Rate (>89) Random Glucose 162 MG/DL (74-106) Calcium Level 8.5 MG/DL (8.5-10.1) Total Bilirubin 0.5 MG/DL (0.2-1.0) Aspartate Amino Transf 20 U/L (15-37) (AST/SGOT) Alanine Aminotransferase 22 U/L (12-78) (ALT/SGPT) Alkaline Phosphatase 121 U/L (45-117) Total Protein 5.2 GM/DL (6.4-8.2) Albumin 2.1 GM/DL (3.4-5.0) Phenytoin (Dilantin) Level 11.0 MCG/ML (10.0-20.0) . (Sujatha ElliottP) Result Diagram: 11/12/16 0406 11/12/16 0406 Microbiology Microbiology Date/Time Procedure Status Source Growth 11/12/16 17:00 Gram Stain - Final Resulted Sputum Endotracheal 11/12/16 17:00 Sputum Culture - Preliminary Resulted Sputum Endotracheal IMMATURE GROWTH - REINCUBATE Procedures 11/08/16: Intubation 11/08/16: Right IJ central line placement 11/08/16: Right chest tube placement with thoracentesis (Sujatha Elliott ) Patient/Family Conference Present at Family Conference: Attempted to contact patient's daughter via telephone, left on voicemail. Awaiting return phone call. . Family Conference Location: Telephone Issues Discussed: (Sujatha Elliott) Assessment and Plan Disease Oriented Problem List: (1) Pleural effusion (2) Congestive heart failure (3) Chronic atrial fibrillation (4) Pneumothorax (5) Hypertension (6) Acute respiratory failure with hypoxia and hypercapnia (7) COPD (chronic obstructive pulmonary disease) (8) Pneumonia (9) Protein-calorie malnutrition, severe Symptom Scale: (1) Dyspnea 0-10 Scale: Unable to quantify (2) Pain 0-10 Scale: Unable to quantify (3) Encephalopathy 0-10 Scale: Unable to quantify Pertinent Non-Medical Issues Psychosocial: Patient is originally from [facility] but has lived in [place] since . 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 He was and , many years ago. He has 2 children. His daughter, Raissa daniels, lives locally and is very involved in the patient's care. The patient also has a son living in [place], but reportedly has not seen him in the last 5 years. The patient does keep in touch. The patient lives alone. His daughter lives a few blocks away and assist the patient with shopping and meal preparation. Spiritual: The patient comes from [place] tradition. Per his daughter, spiritism and spirituality have not been an important part of his life. Legal: Ethical issues impacting care: No known ethical issues impacting care at this time. Important Contacts Raissa Duncan (daughter) [phone] Anselmo Duncan (son) [phone] Aneesh Walls (friend) [phone] . Prognosis This is an 81-year-old male with an extensive history (decades) of congestive heart failure complicated by underlying COPD, history of alcohol abuse. Patient has been declining since March 2016 particularly with recurrent right pleural effusions. He has required > 5 thoracenteses since that time. He has been living at [facility] since his last discharge from [facility] on 10/20/16. There is known ischemic heart disease and failure may be primarily due to valvular heart disease. There is severe tricuspid regurgitation. Patient There is a reasonable chance he will continue to improve well enough to survive the hospitalization. Based on his history of the last few months, long-term prognosis is not good. Life expectancy is probably in the order of months. Patient would certainly be eligible for hospice services at such time as his goals become mostly comfort oriented. Plan * FULL CODE * Per [place] statutes, in the absence of written advanced directives healthcare proxy decision making would fall to the patient's 2 adult children. * GOALS: Aggressive pending family meeting * Attempted to contact patient's daughter via telephone, msg left on voicemail with Palliative Care contact information. Awaiting return phone call. * Palliative care will continue to follow this patient throughout his hospitalization to establish trust, assist with symptom management and clarification of medical treatment goals. . (Sujatha Elliott) Thank you for the opportunity to participate in the care of Mr. Min . (Sujatha Elliott) Attestation To help prompt me to consider important information that might be impacting today's encounter and assessment, information from prior notes written by myself or my colleagues may have been "brought forward" into today's note. My signature on this note, however, is an attestation that I personally performed the exam, history, and/or decision-making noted today, and, unless otherwise indicated, the interactions with patient, family, and staff as well as the review of records all occurred today. I also attest that the listed assessment and stated plan reflect my best clinical judgment today based on the combination of historical information, prior notes, and today's exam/ interactions. When time spent is documented, it refers only to time spent today by the signer, or if indicated, combined time spent today by collaborating physician/nurse practitioner. . (Sujatha Elliott) Collaborating MD Comments . Chart reviewed. Cased discussed with palliative care CORE DRILL OPERATOR. Above CORE DRILL OPERATOR note reviewed and I concur. . (Vignesh Garcia MD) Sujatha Elliott Nov 13, 2016 16:13 Vignesh Garcia MD January 20, 2017 14:40
--- NOTE | 2016-11-13 17:29 | HHI.PR ---
Review/Management Diagnosis Tonic/myoclonic seizures likely related to brain hypoxia EEG with no evidence of ictal activity Plan Neuro checks q. one hourly. Dilantin 100mg Q8h Dilantin level now and next am DVT prophylaxis. Follow up EEG next am Seizure prophylaxis. Diagnosis/Plan: Subjective Subjective Comments Patient is off sedation, mechanical ventilated Ad per nurse, patients' vital signs were abnormal with elevated heart rate and BP when off sedation, with no new neurologic improvement Opens eyes spontaneously less frequent and intense myoclonus right UE, b/l LE Active Medications Current Medications Medications (Trade) Dose Ordered Sig/Sonia Route Start Time Stop Time Status Last Admin (NS Flush) 2 ml UNSCH PRN FLUSH 11/07/16 22:00 11/10/16 09:32 (NS Flush) 2 ml BID FLUSH 11/08/16 09:00 11/13/16 09:48 (Narcan Inj) 0.4 mg UNSCH PRN IV 11/07/16 22:00 (Tenormin) 50 mg BID PO 11/08/16 09:00 Hold (Capoten) 50 mg TIDAC PO 11/08/16 08:00 Hold (Tylenol) 650 mg Q4H PRN PO 11/08/16 01:30 Furosemide 20 mg 20 mg BID@09,18 IV PUSH 11/08/16 09:00 Hold 11/10/16 09:32 (Vancomycin Consult Pharmacy) 0 ml @ 0 mls/hr UNSCH OTHER 11/08/16 03:45 Miscellaneous Information Patient in critical care unit? Ass... Q361D XX 11/08/16 04:00 11/08/16 04:00 (Peridex 0.12% Liq) 15 ml BID@08,20 MT 11/08/16 08:00 11/12/16 19:18 (D50w (Vial) Inj) 25 ml UNSCH PRN IV PUSH 11/08/16 05:45 Insulin Human Regular 1 1 Q6HR SQ 11/08/16 06:00 11/13/16 00:19 (fentaNYL DRIP) 250 ml @ 0 mls/hr TITRATE IV 11/08/16 05:45 11/13/16 00:25 (NS Flush) DAILY IVF 11/09/16 09:00 11/12/16 08:20 IV Flush UNSCH PRN IVF 11/08/16 09:45 11/11/16 08:00 Potassium Chloride 100 ml @ 50 mls/hr Q2H PRN IV 11/08/16 11:15 11/10/16 03:19 Potassium Chloride 100 ml @ 50 mls/hr Q2H PRN IV 11/08/16 11:15 Potassium Chloride 100 ml @ 25 mls/hr UNSCH PRN IV 11/08/16 11:15 Potassium Chloride 100 ml @ 50 mls/hr Q2H PRN IV 11/08/16 11:15 (Magnesium Sulfate Inj/NS Inj) 100 ml @ 50 mls/hr UNSCH PRN IV 11/08/16 11:15 Magnesium Oxide 800 mg 800 mg UNSCH PRN PO 11/08/16 11:15 (Magnesium Sulfate Inj/NS Inj) 100 ml @ 50 mls/hr UNSCH PRN IV 11/08/16 11:15 Potassium Phosphate 2000 mg 2,000 mg Q4H PRN PO 11/08/16 11:15 (Sodium Phosphate Inj/NS 250 ml Inj) 250 ml @ 42 mls/hr UNSCH PRN IV 11/08/16 11:15 Potassium Phosphate 2000 mg 2,000 mg UNSCH PRN PO/TUBE 11/08/16 11:15 Potassium Phosphate 30 mmol/ Sodium Chloride 260 ml @ 42 mls/hr UNSCH PRN IV 11/08/16 11:15 Vancomycin HCl 1250 mg/Sodium Chloride 262.5 ml @ 262.5 mls/ hr Q18H IV 11/08/16 23:00 11/12/16 17:10 (Levophed-Dextrose Drip) 250 ml @ 0 mls/hr TITRATE IV 11/08/16 23:45 11/11/16 07:26 Lorazepam 1 mg 1 mg Q3H PRN IV PUSH 11/09/16 05:00 11/12/16 08:21 Pharmacy Profile Note 0 ml @ 0 mls/hr UNSCH OTHER 11/11/16 07:45 (Versed Inj) 100 ml @ 0 mls/hr TITRATE IV 11/11/16 15:30 11/12/16 21:52 (Dilantin Inj) 100 mg Q8H IV PUSH 11/11/16 17:00 11/13/16 09:48 (SoluMEDROL INJ) 40 mg Q12HR IV PUSH 11/12/16 21:00 11/13/16 09:48 Warfarin Sodium 3 mg 3 mg DAILY@16 PO 11/13/16 16:00 Cefepime HCl 2000 mg/Sodium Chloride 100 ml @ 200 mls/hr Q8H IV 11/13/16 22:00 (Levaquin 750 Mg Premix Inj) 150 ml @ 100 mls/hr Q24H IV 11/13/16 16:00 Allergies Allergies Coded Allergies No Known Allergies (Verified11/07/16) Exam I&O / VS 11/12/16 11/12/16 11/13/16 15:00 23:00 07:00 Intake Total 708 ml 1498 ml 536 ml Output Total 670 ml 560 ml 450 ml Balance 38 ml 938 ml 86 ml Intake IV Total 217 ml 1165 ml 245 ml Tube Feeding 491 ml 333 ml 291 ml Output Urine Total 300 ml 250 ml 250 ml Chest Tube Drainage Total 370 ml 310 ml 200 ml # Bowel Movements 0 0 Vital Signs Date Time Temp Pulse Resp B/P Pulse Ox O2 Delivery O2 Flow Rate FiO2 11/13/16 16:00 92 11/13/16 16:00 40 11/13/16 16:00 98.8 109 20 134/55 95 11/13/16 15:16 93 40 11/13/16 14:00 92 11/13/16 12:00 92 11/13/16 12:00 40 11/13/16 12:00 97.6 94 22 146/54 93 11/13/16 11:04 93 40 11/13/16 10:00 92 11/13/16 08:00 97.8 84 22 112/46 93 146/54 11/13/16 08:00 40 11/13/16 08:00 92 11/13/16 07:23 93 40 11/13/16 06:00 85 11/13/16 04:03 94 40 11/13/16 04:00 98.6 81 22 112/56 92 115/41 11/13/16 04:00 81 11/13/16 04:00 40 11/13/16 02:00 77 11/13/16 01:03 94 40 11/13/16 00:00 97.7 79 22 115/60 94 110/42 11/13/16 00:00 79 11/13/16 00:00 40 11/12/16 22:02 96 40 11/12/16 22:00 81 11/12/16 20:00 98.1 84 22 109/59 96 110/41 11/12/16 20:00 40 11/12/16 20:00 84 11/12/16 19:20 96 40 11/12/16 18:00 84 Exam Comments GENERAL: The patient is vented and sedated, well-developed. Still having myoclonic episodes HEENT: Atraumatic, normocephalic. No conjunctival injection. NECK: No carotid bruit. CARDIOVASCULAR: Regular rate and rhythm. LUNGS: Respiration bilateral decreased air entry with scattered wheezes. NEUROLOGICAL: Vented and lightly sedated. Pupils are 2 mm bilateral, sluggishly responding to light. spontaneous eye opening, Plantars are bilateral, mute. Objective Radiology Results Last 72 hours Impressions Chest X-Ray 11/12/16 0600 Signed Impressions: Service Date/Time: Saturday, November 12, 2016 04:49 - CONCLUSION: No significant change has occurred. Don Soto MD Chest X-Ray 11/11/16 0600 Signed Impressions: Service Date/Time: Friday, November 11, 2016 02:50 - CONCLUSION: No significant change has occurred. Don Soto MD Brain MRI 11/11/16 0000 Signed Impressions: Service Date/Time: Friday, November 11, 2016 12:53 - CONCLUSION: 1. 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 2. 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 The others would be consistent with punctate, remote areas of hemorrhage suggesting possibility of amyloid. Eitan Mendoza MD Micro and Labs Laboratory Tests Test 11/13/16 03:31 Prothrombin Time 26.5 Prothromb Time International 2.3 Ratio Date/Time Procedure Status Source Growth 11/12/16 17:00 Gram Stain - Final Resulted Sputum Endotracheal 11/12/16 17:00 Sputum Culture - Preliminary Resulted Sputum Endotracheal IMMATURE GROWTH - REINCUBATE Deirdre Kirkland MD Nov 13, 2016 17:29
[2016-11-13] MEDS: WARFARIN SOD 3 MG TAB PO SCH (17:30)
--- NOTE | 2016-11-13 18:53 | HHI.PR ---
Subjective Remarks 81 YOWM with VDRF,Pl effusion Right chest tube draining On PRVC AC, Fi02 40% Has Jerky movements EEG no sz No fever Minimal chest tube drainage Objective Vital Signs Vital Signs Date Time Temp Pulse Resp B/P Pulse Ox O2 Delivery O2 Flow Rate FiO2 11/13/16 18:00 92 11/13/16 16:00 92 11/13/16 16:00 40 11/13/16 16:00 98.8 109 20 134/55 95 11/13/16 15:16 93 40 11/13/16 14:00 92 11/13/16 12:00 92 11/13/16 12:00 40 11/13/16 12:00 97.6 94 22 146/54 93 11/13/16 11:04 93 40 11/13/16 10:00 92 11/13/16 08:00 97.8 84 22 112/46 93 146/54 11/13/16 08:00 40 11/13/16 08:00 92 11/13/16 07:23 93 40 11/13/16 06:00 85 11/13/16 04:03 94 40 11/13/16 04:00 98.6 81 22 112/56 92 115/41 11/13/16 04:00 81 11/13/16 04:00 40 11/13/16 02:00 77 11/13/16 01:03 94 40 11/13/16 00:00 97.7 79 22 115/60 94 110/42 11/13/16 00:00 79 11/13/16 00:00 40 11/12/16 22:02 96 40 11/12/16 22:00 81 11/12/16 20:00 98.1 84 22 109/59 96 110/41 11/12/16 20:00 40 11/12/16 20:00 84 11/12/16 19:20 96 40 I/O 11/12/16 11/12/16 11/12/16 11/13/16 11/13/16 11/13/16 07:00 15:00 23:00 07:00 15:00 23:00 Intake Total 497 ml 708 ml 1498 ml 536 ml 846 ml Output Total 200 ml 670 ml 560 ml 450 ml 350 ml Balance 297 ml 38 ml 938 ml 86 ml 496 ml Intake IV Total 249 ml 217 ml 1165 ml 245 ml 202 ml Tube Feeding 248 ml 491 ml 333 ml 291 ml 444 ml Other 200 ml Output Urine Total 200 ml 300 ml 250 ml 250 ml 300 ml Chest Tube Drainage Total 0 ml 370 ml 310 ml 200 ml 50 ml # Bowel Movements 0 0 Result Diagram: 11/12/1640511/12/16405 Objective Remarks GENERAL: Elderly male, On Vent SKIN: Warm and dry. HEAD: Normocephalic. EYES: No scleral icterus. No injection or drainage. NECK: Supple, trachea midline. No JVD or lymphadenopathy. CARDIOVASCULAR: Regular rate and rhythm without murmurs, gallops, or rubs. RESPIRATORY: Breath sounds equal bilaterally. No accessory muscle use. Right chest tube draining GASTROINTESTINAL: Abdomen soft, non-tender, nondistended. MUSCULOSKELETAL: No cyanosis, or edema. BACK: Nontender without obvious deformity. No CVA tenderness. A/P Assessment and Plan VDRF Pleural effusion, s/p right chest tube Sz/ Encephalopathy AF CHF PLAN: Cont Vent support Chest tube to drain Will need Pleurodesis before pulling chest tube. On Coumadin, monitor INR ABX per Ash Hdz MD Nov 13, 2016 18:53
[2016-11-13] MEDS: CEFEPIME INJ 2,000 MG in SODIUM CHLORIDE 0.9% INJ 100 ML IV SCH (23:00)
[2016-11-14] VITALS (19 sets, daily range): BP systolic 77–165; BP diastolic 41–82; PULSE 75–113; RESP 22–28; TEMP 98.1–99.7; O2SAT 91–96
[2016-11-14] MEDS: PHENYTOIN INJ 100 MG/2 ML VIAL IV PUSH SCH ×3 (01:11→17:40)
[2016-11-14] MEDS: RESP: ALBUTEROL 2.5 MG/IPRATROPIUM 0.5 MG NEB (SCH) INH ×6 (03:08→23:47)
[2016-11-14] MEDS: VANCOMYCIN INJ 1,250 MG in SODIUM CHLOR 0.9% 250 ML INJ 250 ML IV SCH ×2 (04:03→23:25)
[2016-11-14] MEDS: MIDAZOLAM 100 MG/ML INJ 100 ML IV SCH (04:04)
[2016-11-14 06:00] LABS: INTERNATIONAL NORMALIZED RATIO 2.3 RATIO; PROTHROMBIN TIME - PATIENT 26.6 SEC (9.8-11.6)
[2016-11-14] MEDS: fentaNYL DRIP 250 ML IV SCH (06:00)
[2016-11-14] MEDS: CEFEPIME INJ 2,000 MG in SODIUM CHLORIDE 0.9% INJ 100 ML IV SCH ×3 (06:00→22:52)
[2016-11-14] MEDS: INSULIN NovoLIN REGULAR SUPPLEMENTAL SCALE SQ SCH ×4 (06:00→18:00)
[2016-11-14] MEDS: CHLORHEXIDINE 0.12% (ORAL KIT) 15 ML CUP MT SCH ×2 (08:00→20:06)
[2016-11-14] MEDS: methylPREDNISolone SOD SUCC 40 MG/1 ML VIAL IV PUSH SCH ×2 (08:39→20:07)
[2016-11-14] MEDS: SODIUM CHLORIDE 0.9% FLUSH 5 ML FLUSH FLUSH SCH ×2 (09:00→20:06)
[2016-11-14] MEDS: SODIUM CHLORIDE 0.9% FLUSH 5 ML FLUSH IVF SCH (09:00)
--- NOTE | 2016-11-14 09:28 | HHI.CCPN ---
Subjective Remarks/Hospital Course This is an 81-year-old male who has had multiple readmissions over the past few months for a recurrent right-sided pleural effusion. [facility] with recurrent right-sided pleural effusion as well as hypoxia and somnolence. He was found to have significant hypercarbia and a PCO2 in the 90s. He was initially placed on BiPAP and admitted to the [facility]. He became more somnolent and his oxygen saturation began to decline. At this point a critical care medicine is consulted to evaluate and manage his hypercarbic respiratory failure. Because he is failed his trial of noninvasive positive pressure ventilation, we will move towards intubating the patient. I evaluated the patient and he is essentially unresponsive and obtunded and only minimally withdrawing to pain. I can obtain no additional history from the patient. Subjective: 11/09: Early this a.m. at approximately 06:30 the patient was noted to have a grand mal seizure lasting approximately 60 seconds followed by a small tonic- clonic seizure lasting 30 seconds involving the lower extremities. The patient received Ativan 2 mg with cessation of seizure activity. Stat CT of the brain without contrast was obtained showed no acute abnormality. EEG was obtained previously awaiting results. Prior to the event the patient was noted to be on a fentanyl infusion at approximately 250 mcg/h. The patient was noted to be a GCS 10T, squeezing my hand. 11/10: The patient was noted to have multiple seizures requiring interventions with IV Ativan. Described as tonic-clonic in nature with eyes rolled back in the head. Gross motor movement shaking 4 extremities. Today the patient was noted to have a positive growth and blood cultures. WBC count elevated. Ammonia level was drawn less than 10, lactate was noted to be 2.2 this morning. Pleural fluid culture negative growth to date. 11/11: On stimulation patient continues to have jerking movement of all extremities. EEG negative for seizures. Check MRI today. Dr. Kirkland is neurology. Remains on 2 mcg/min of Levophed 11/12: Per neurologist, patient had witnessed with tonic convulsions started over right arm and propagated to left UE and both LE with fluttering of the eyes and upward gaze.Loaded with Dilantin iv infusion and a maintenance dose of 100mg Q8h, Stat EEG negative for seizures. Its unclear to me whether it is seizure or myoclonus 11/13: No change in neuro status. Continues to have jerking movements off lower extremity when stimulated. EEG 2 have been negative for seizures. We'll hold sedation for neuro exam 11/14 Objective Vital Signs Date Time Temp Pulse Resp B/P Pulse Ox O2 Delivery O2 Flow Rate FiO2 11/14/16 08:51 40 11/14/16 07:41 96 11/14/16 06:00 98 11/14/16 04:00 99.6 22 132/60 144/58 Intake and Output 11/13/16 11/13/16 11/14/16 08:00 16:00 00:00 Intake Total 536 ml 846 ml 643 ml Output Total 450 ml 350 ml 395 ml Balance 86 ml 496 ml 248 ml Result Diagram: 11/12/16 0406 11/14/16 0338 Imaging Last [address] 11/07/161955 Signed Impressions: Service Date/Time: October 20:38 - CONCLUSION: No acute intracranial abnormality demonstrated. Chronic white matter and old ischemic changes. Dhruv Foster MD Chest X-Ray 11/07/161955 Signed Impressions: Service Date/Time: October 20:54 - CONCLUSION: Worsening bilateral airspace disease and pleural effusions. Dhruv Foster MD Objective Remarks GENERAL: This is a elderly critically ill-appearing cachectic male, intubated and sedated with Versed and Fentanyl HEENT: Normocephalic. Atraumatic. Pupils equal, round, reactive. Mucous membranes are moist and pink. NECK: Trachea is midline. No JVD. Orotracheally intubated CHEST: Right sided chest tube connected to pleural vac at 40 cm of water pressure. Distant breath sounds. No air leak CARDIOVASCULAR: Normal rate, regular rhythm. No appreciable murmurs. ABDOMEN: After, nontender, nondistended. No guarding. MUSCULOSKELETAL: 1+ peripheral edema. Distal pulses 2+ NEUROLOGICAL: RASS -4. GCS 3T. On central pain, patient slightly withdraws lower extremities. also develops seizure-like activity on stimulation Date of Insertion: Nov 08, 2016 Side: Right Location: Internal, Jugular A/P Assessment and Plan Assessment: This is an 81-year-old male with history of prior recurrent right pleural effusions and COPD now presents with acute type II hypercarbic and hypoxic respiratory failure which has clearly failed noninvasive positive pressure ventilation. Intubated and placed on mechanical ventilation.Covering COPD exacerbation, as well as healthcare associated pneumonia given his history of being on Levaquin at his [facility]. He remains critically ill. I am not sure that we will be able to get him through this hospitalization , and his recurrent respiratory failures are clearly making him more deconditioned every time he comes in the hospital. Despite this, his daughter continues to progress for aggressive measures. Plan by systems: Neurologic: Seizure vs Myoclonus CO2 narcosis Metabolic encephalopathy Mild dementia -Currently on Fentanyl infusion and Versed infusion Vent synchrony and possible seizure. Start daily sedation vacation -Ativan PRN for breakthrough seizures -EEG negative 11/10/15. 11/11/16 (moderate to severe encephalopathy, no seizure) -11/08 CT of the brain-no acute abnormality. 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 Also question of amyloid Respiratory: Acute hypercarbic and hypoxic respiratory failure Recurrent right pleural effusion s/p chest tube placement Right pneumothorax Possible healthcare associated pneumonia COPD exacerbation Methylprednisolone 60 mg IV every 12 Nebs every 4 and every 2 when necessary -Pulmonary Dr. Valenzuela, patient will need pleurodesis prior to removal of chest tube Head of bed at 30, Vent bundle Wean FiO2 for goal SPO2 greater than 90% Daily SBT, mental status will not permit extubation. Vent day 7 11/08 S/P CT guided IR drainage of recurrent right posterior pleural effusion, unable to perform pleurodesis, maintain 40cm of suction to pleuravac Antibiotics as described below Cardiovascular: Severe pulmonary hypertension A. fib RVR Hypertension Maintain map greater than 60-65 Hold home antihypertensives -Currently on Levophed infusion, weaning doses -Monitor CVP Diuresis as below Renal: Maintain Vital for accurate --Strict I/Os FEN/GI: Acute intravascular volume overload Acute protein calorie malnutritionsevere Metabolic alkalosis Continue tube feeds, Jevity 1.5 goal rate 60 cc/hour ICU electrolyte protocol Lasix 40 mg IV twice a day on hold Diamox 500 mg discontinued Heme/ID: Possible healthcare associated pneumonia COPD exacerbation Leukocytosis Daily CBC, WBC count stable 11.5 today - lactate level 2.2 this am, follow trend - ID consulted by Dr. Gaspar Does not meet transfusion triggers at this time Vancomycin with pharmacy dosing, Cefepime, Azithromycin (day 3) 11/08 blood -micrococcus 08/28 possible contaminant - sputum culture, urine cultures-NGTD Endocrine: Hyperglycemia of critical illness -- SSI, medium scale, every 6 hours Prophylaxis: GI Prophylaxis Protonix 40 mg IV every 24 hours DVT Prophylaxis -- SCDs Patient on Coumadin, INR 2.3 pharmacy consulted for Coumadin dosing Lines: Peripheral IVsx 2 . central line Vital Dispo: Discussed medical update with daughter who desires aggressive treatment at this time. spoke with FURNACE MASON at bedside This patient remains critically ill with one or more organ systems which are or may become a threat to life. I have spent in excess of 32 minutes discontinuously in the care and management of this patient. This time is exclusive of procedures, and includes, but is not limited to, evaluation of the patient, review of the medical record, discussions with family, consultants, nursing staff, or respiratory therapy, and documentation in the medical record. Rebecca Bartlett MD Nov 14, 2016 09:28
[2016-11-14] MEDS ORDERED: BUMETANIDE INJ 1 MG/4 ML VIAL IV PUSH ONE (10:00)
--- NOTE | 2016-11-14 11:10 | RADRPT ---
EXAM DATE/TIME: 11/14/2016 10:32 [facility] COMPARISON: CHEST SINGLE AP, November 12, 2016, 4:49. INDICATIONS : Respiratory disease MEDICAL HISTORY : Chronic obstructive pulmonary disease. Congestive heart failure. SURGICAL HISTORY : None. ENCOUNTER: Subsequent ACUITY: 1 week PAIN SCORE: Non-responsive. LOCATION: chest FINDINGS: The endotracheal tube has its tip 3 cm above the laura. A nasogastric tube has its tip below diaphr agm. A right internal jugular central line has its tip in the superior vena cava. A small right-ashutosh ed chest tube is noted at the right base. The heart is enlarged. Perihilar infiltrates are noted co nsistent with atelectasis and/or mild congestion. Tiny bilateral pleural effusions are noted. CONCLUSION: 1. Perihilar infiltrates consistent with atelectasis and/or congestion. 2. Tiny bilateral pleural effusions. 3. Cardiomegaly. 4. Multiple tubes and lines are in good positions. 5. No pneumothorax. Jonny Velasco MD on November 14, 2016 at 11:00 Board Certified Radiologist. This report was verified electronically.
[2016-11-14 12:00] LABS: AUTOMATED NEUTROPHIL # 9.1 TH/MM3 (1.8-7.7); BASOPHIL % 0.1 % (0.0-2.0); EOSINOPHIL % 0.1 % (0.0-4.0); HEMATOCRIT 33.8 % (39.0-51.0); LYMPH % 4.4 % (9.0-44.0); LYMPHOCYTE # 0.5 TH/MM3 (1.0-4.8); MEAN CELL VOLUME 99.6 FL (80.0-100.0); MEAN CORPUSCULAR HEMOGLOBIN 31.9 PG (27.0-34.0); MEAN CORPUSCULAR HGB CONC 32.1 % (32.0-36.0); MONO % 8.9 % (0.0-8.0); NEUT % 86.5 % (16.0-70.0); PLATELET COUNT 109 TH/MM3 (150-450); RED CELL DISTRIBUTION WIDTH 16.3 % (11.6-17.2); WHITE BLOOD COUNT 10.5 TH/MM3 (4.0-11.0)
[2016-11-14] MEDS: DEXMEDETOMIDINE INJ 50 ML IV SCH ×5 (12:07→23:25)
[2016-11-14] MEDS: CAPTOPRIL 50 MG TAB PO SCH ×2 (12:07→17:39)
[2016-11-14 12:11] LABS: HEMO FLAGS AUTO DIFF
[2016-11-14 12:45] LABS: OVALOCYTES 1+ (NORMAL)
[2016-11-14 12:46] LABS: PLATELET ESTIMATE SMEAR LOW (NORMAL); PLATELET MORPHOLOGY NORMAL (NORMAL); SCAN/DIFF AUTO DIFF CONFIRMED
[2016-11-14 12:54] LABS: ALKALINE PHOSPHATASE 125 U/L (45-117); ALT (GPT) 66 U/L (12-78); ANION GAP 6 MEQ/L (5-15); AST (GOT) 59 U/L (15-37); BICARBONATE 28.3 MEQ/L (21.0-32.0); BLOOD UREA NITROGEN 30 MG/DL (7-18); CHLORIDE 115 MEQ/L (98-107); GLOMERULAR FILTRATION RATE 127 ML/MIN (>89); MAGNESIUM 2.2 MG/DL (1.5-2.5); POTASSIUM 4.1 MEQ/L (3.5-5.1); SODIUM (NA) 149 MEQ/L (136-145); TOTAL BILIRUBIN ADULT 0.6 MG/DL (0.2-1.0)
--- NOTE | 2016-11-14 13:40 | HHI.HCPN ---
Reason for visit a. To assist with evaluation and management of symptoms including: Encephalopathy, pain, dyspnea b. To assist medical decision maker(s) with: better understanding of current medical conditions; weighing benefits/burdens of medical treatment options; making medical treatment decisions. . (Sujatha Elliott) Subjective/Interval History Mr. Duncan is an 81-year-old male with a history of atrial fibrillation, congestive heart failure with recurrent pleural effusions, chronic lower extremity venous stasis changes with cellulitis, O2 dependent COPD and dyslipidemia. The patient presented to [place] ED via EMS from [facility] on 11/07/16 4 evaluation of progressively worsening dyspnea and alterations in mental status and was subsequently admitted with a large right pleural effusion, hypoxia and pneumonia. Patient was seen and assessed in room 500. He remains sedated on fentanyl, orotracheally intubated on mechanical ventilator. Plan to wean patient off fentanyl drip and start Precedex drip. Per nurseMaximus, patient tolerated CPAP trial for 2 hours this morning. Follow-up chest x-ray this morning showed perihilar infiltrates consistent with atelectasis and/or congestion; tiny bilateral pleural effusions; cardiomegaly; no pneumothorax was seen. Right -sided chest tube draining straw-colored fluid - cultures pending. Afebrile. Leukocytosis has resolved. Sputum culture on 11/12/16 growing staph aureus. Patient remains on her myosin, cefepime and vancomycin. Infectious disease continues to follow. Patient arouses briefly to verbal stimuli, opening eyes but does not track. Follows some simple commands. He continues to have myoclonus in his right upper extremity and bilateral lower extremities. Neurology continues to follow this patient. Remains on Dilantin 100 mg every 8 hour. EEG showed no seizure activity 2. Follow-up EEG this morningresults pending. . Family/friend interactions Spoke to patient's daughter, Raissa Duncan, at length regarding her father's clinical condition. Patient's daughter appears to be overwhelmed with her father 's declining condition stating, " It is not fair, he deserves more. He was a good father, my mom was kind of out of the picture, you didn't see that back then. He is very intelligent. He was educated and successful - he is not some homeless and educated person." She verbalizes anger that the hospital staff is telling her that her father may not survive this hospitalization. She very adamantly states her goals for her father remain aggressive, and she wishes for everything that can be done for him be done. Attempted to contact patient's son, Anselmo Duncan, via telephone. Message left on voicemail with palliative care contact information. Awaiting return phone call. . (Sujatha Elliott) Advance Directives Advance Directive Specifics Health Care Surrogate(s): == No written designation of health care surrogacy. == Patient , has on several occasions, verbally stated that he wants BOTH of his children to participate in health care decision making if he is incapacitated to do so. . Documented care wishes: Patient's daughter has indicated during prior hospitalization that her father completed some type of written advanced directives but has not provided copies of these documents to date. . Significant change in goals: Goals remain aggressive . (Sujatha Elliott) Objective Vital Signs Date Time Temp Pulse Resp B/P Pulse Ox O2 Delivery O2 Flow Rate FiO2 11/14/16 12:00 104 11/14/16 12:00 40 11/14/16 10:59 94 40 11/14/16 10:00 104 11/14/16 08:51 40 11/14/16 08:00 104 11/14/16 08:00 99.2 85 22 136/65 96 11/14/16 08:00 40 11/14/16 07:41 96 40 11/14/16 06:00 98 11/14/16 04:02 96 40 11/14/16 04:00 100 11/14/16 04:00 40 11/14/16 04:00 99.6 100 22 132/60 91 144/58 11/14/16 02:00 93 11/14/16 01:03 95 40 11/14/16 00:00 40 11/14/16 00:00 97 11/14/16 00:00 99.7 97 22 165/82 94 165/69 11/13/16 22:02 94 40 11/13/16 22:00 85 11/13/16 20:00 99.5 101 22 142/67 94 137/54 11/13/16 20:00 101 11/13/16 20:00 40 3/22/17 19:26 95 40 11/13/16 18:00 92 11/13/16 16:00 92 11/13/16 16:00 40 11/13/16 16:00 98.8 109 20 134/55 95 11/13/16 15:16 93 40 11/13/16 14:00 92 Intake & Output 11/14/16 11/14/16 07:00 19:00 Intake Total 1538 ml Output Total 1120 ml Balance 418 ml Intake IV Total 767 ml Tube Feeding 771 ml Output Urine Total 950 ml Chest Tube Drainage Total 170 ml . Physical Exam CONSTITUTIONAL/GENERAL: This is a frail, elderly male patient sedated and intubated on mechanical ventilator. TUBES/LINES/DRAINS: Right IJ central line, left arterial line, left PIV, Pleur- evac chest tube, ETT, OG, soft restraints, podus SKIN: Ecchymoses on upper extremities, multiple scabbed areas Right sided chest tube draining straw-colored fluid. Skin tear right knee with Tegaderm. HEAD: Atraumatic. Normocephalic. EYES: Pupils small, equal and sluggish. . ENT: Hearing grossly normal. Nose without bleeding or purulent drainage. Orotracheally intubated. NECK: Trachea midline. Supple, nontender. No palpable thyroid enlargement or nodularity. CARDIOVASCULAR: Tachycardic, regular rhythm. No murmurs, gallops, or rubs. Peripheral pulses symmetric. RESPIRATORY/CHEST: Orotracheally intubated on mechanical ventilator. Breath sounds diminished. No wheezes, rales, or rhonchi. GASTROINTESTINAL: Abdomen soft, non-tender, nondistended. No guarding. Bowel sounds present. GENITOURINARY: Without palpable bladder distension. Vital catheter in place. MUSCULOSKELETAL: Extremities without clubbing, cyanosis, or edema. BLE with chronic pigment changes. LYMPHATICS: No palpable cervical or supraclavicular adenopathy. NEUROLOGICAL: Opens eyes to verbal stimuli, does not track. PSYCHIATRIC: Unable to assess secondary to patient's clinical condition. . (Sujatha Elliott) Diagnostic Tests Laboratory Laboratory Tests Test 11/12/16 11/13/16 11/13/16 11/14/16 04:06 03:31 18:21 03:38 White Blood Count 11.5 TH/MM3 (4.0-11.0) Red Blood Count 3.19 MIL/MM3 (4.50-5.90) Hemoglobin 10.4 GM/DL (13.0-17.0) Hematocrit 31.6 % (39.0-51.0) Mean Corpuscular Volume 98.8 FL (80.0-100.0) Mean Corpuscular Hemoglobin 32.6 PG (27.0-34.0) Mean Corpuscular Hemoglobin 33.0 % Concent (32.0-36.0) Red Cell Distribution Width 16.3 % (11.6-17.2) Platelet Count 117 TH/MM3 (150-450) Mean Platelet Volume 8.8 FL (7.0-11.0) Neutrophils (%) (Auto) 91.8 % (16.0-70.0) Lymphocytes (%) (Auto) 4.2 % (9.0-44.0) Monocytes (%) (Auto) 4.0 % (0.0-8.0) Eosinophils (%) (Auto) 0.0 % (0.0-4.0) Basophils (%) (Auto) 0.0 % (0.0-2.0) Neutrophils # (Auto) 10.6 TH/MM3 (1.8-7.7) Lymphocytes # (Auto) 0.5 TH/MM3 (1.0-4.8) Monocytes # (Auto) 0.5 TH/MM3 (0-0.9) Eosinophils # (Auto) 0.0 TH/MM3 (0-0.4) Basophils # (Auto) 0.0 TH/MM3 (0-0.2) CBC Comment DIFF FINAL Differential Comment Prothrombin Time 21.5 SEC 26.5 SEC 26.6 SEC (9.8-11.6) (9.8-11.6) (9.8-11.6) Prothromb Time International 1.9 RATIO 2.3 RATIO 2.3 RATIO Ratio Sodium Level 146 MEQ/L (136-145) Potassium Level 4.3 MEQ/L (3.5-5.1) Chloride Level 111 MEQ/L (98-107) Carbon Dioxide Level 28.3 MEQ/L (21.0-32.0) Anion Gap 7 MEQ/L (5-15) Blood Urea Nitrogen 25 MG/DL (7-18) Creatinine 0.57 MG/DL 0.67 MG/DL (0.60-1.30) (0.60-1.30) Estimat Glomerular Filtration 137 ML/MIN 114 ML/MIN Rate (>89) (>89) Random Glucose 162 MG/DL (74-106) Calcium Level 8.5 MG/DL (8.5-10.1) Total Bilirubin 0.5 MG/DL (0.2-1.0) Aspartate Amino Transf 20 U/L (15-37) (AST/SGOT) Alanine Aminotransferase 22 U/L (12-78) (ALT/SGPT) Alkaline Phosphatase 121 U/L (45-117) Total Protein 5.2 GM/DL (6.4-8.2) Albumin 2.1 GM/DL (3.4-5.0) Phenytoin (Dilantin) Level 11.0 MCG/ML 9.0 MCG/ML 10.3 MCG/ML (10.0-20.0) (10.0-20.0) (10.0-20.0) Test 11/14/16 11/14/16 10:30 10:50 Sodium Level 149 MEQ/L (136-145) Potassium Level 4.1 MEQ/L (3.5-5.1) Chloride Level 115 MEQ/L (98-107) Carbon Dioxide Level 28.3 MEQ/L (21.0-32.0) Anion Gap 6 MEQ/L (5-15) Blood Urea Nitrogen 30 MG/DL (7-18) Creatinine 0.61 MG/DL (0.60-1.30) Estimat Glomerular Filtration 127 ML/MIN Rate (>89) Random Glucose 82 MG/DL (74-106) Calcium Level 8.3 MG/DL (8.5-10.1) Magnesium Level 2.2 MG/DL (1.5-2.5) Total Bilirubin 0.6 MG/DL (0.2-1.0) Aspartate Amino Transf 59 U/L (15-37) (AST/SGOT) Alanine Aminotransferase 66 U/L (12-78) (ALT/SGPT) Alkaline Phosphatase 125 U/L (45-117) Total Protein 5.4 GM/DL (6.4-8.2) Albumin 2.1 GM/DL (3.4-5.0) White Blood Count 10.5 TH/MM3 (4.0-11.0) Red Blood Count 3.40 MIL/MM3 (4.50-5.90) Hemoglobin 10.8 GM/DL (13.0-17.0) Hematocrit 33.8 % (39.0-51.0) Mean Corpuscular Volume 99.6 FL (80.0-100.0) Mean Corpuscular Hemoglobin 31.9 PG (27.0-34.0) Mean Corpuscular Hemoglobin 32.1 % Concent (32.0-36.0) Red Cell Distribution Width 16.3 % (11.6-17.2) Platelet Count 109 TH/MM3 (150-450) Mean Platelet Volume 9.1 FL (7.0-11.0) Neutrophils (%) (Auto) 86.5 % (16.0-70.0) Lymphocytes (%) (Auto) 4.4 % (9.0-44.0) Monocytes (%) (Auto) 8.9 % (0.0-8.0) Eosinophils (%) (Auto) 0.1 % (0.0-4.0) Basophils (%) (Auto) 0.1 % (0.0-2.0) Neutrophils # (Auto) 9.1 TH/MM3 (1.8-7.7) Lymphocytes # (Auto) 0.5 TH/MM3 (1.0-4.8) Monocytes # (Auto) 0.9 TH/MM3 (0-0.9) Eosinophils # (Auto) 0.0 TH/MM3 (0-0.4) Basophils # (Auto) 0.0 TH/MM3 (0-0.2) CBC Comment AUTO DIFF Differential Comment AUTO DIFF CONFIRMED Platelet Estimate LOW (NORMAL) Platelet Morphology Comment NORMAL (NORMAL) Ovalocytes 1+ (NORMAL) . (Sujatha Elliott) Result Diagram: 11/14/16 1050 11/14/16 1030 Microbiology Microbiology Date/Time Procedure Status Source Growth 11/12/16 17:00 Gram Stain - Final Resulted Sputum Endotracheal 11/12/16 17:00 Sputum Culture - Preliminary Resulted Staphylococcus Aureus . Imaging Last 72 hours Impressions Chest X-Ray 11/14/16 0000 Signed Impressions: Service Date/Time: October 10:32 - CONCLUSION: 1. Perihilar infiltrates consistent with atelectasis and/or congestion. 2. Tiny bilateral pleural effusions. 3. Cardiomegaly. 4. Multiple tubes and lines are in good positions. 5. No pneumothorax. Jonny Velasco MD Chest X-Ray 11/12/16 0600 Signed Impressions: Service Date/Time: Saturday, November 12, 2016 04:49 - CONCLUSION: No significant change has occurred. Don Soto MD . Procedures 11/08/16: Intubation 11/08/16: Right IJ central line placement 11/08/16: Right chest tube placement with thoracentesis (Sujatha Elliott ) Assessment and Plan Disease Oriented Problem List: (1) Pleural effusion (2) Congestive heart failure (3) Chronic atrial fibrillation (4) Pneumothorax (5) Hypertension (6) Acute respiratory failure with hypoxia and hypercapnia (7) COPD (chronic obstructive pulmonary disease) (8) Pneumonia (9) Protein-calorie malnutrition, severe Symptom Scale: (1) Dyspnea 0-10 Scale: Unable to quantify Comment: Patient remains intubated on mechanical ventilator. Tolerated CPAP trials for 2 hours this morning. Follow-up chest x-ray this morning showed perihilar infiltrates consistent with atelectasis and/or congestion; tiny bilateral pleural effusions; cardiomegaly; no pneumothorax was seen. Right -sided chest tube draining straw-colored fluid - cultures pending. Sputum culture + staph aureus. (2) Pain 0-10 Scale: Unable to quantify Comment: Probable causes of pain include dyspnea, infection, invasiveness lines , skin breakdown, immobility, bedbound status etc. Patient is on fentanyl drip. Plan to wean off fentanyl today and start Precedex infusion. PRN acetaminophen is available for pain/fever as well. (3) Encephalopathy 0-10 Scale: Unable to quantify Comment: Neurology following. Patient arouses briefly to verbal stimuli, opening eyes but does not track. Follows some simple commands. He continues to have myoclonus in his right upper extremity and bilateral lower extremities. Neurology continues to follow this patient. Remains on Dilantin 100 mg every 8 hour. EEG showed no seizure activity 2. Follow-up EEG this morningresults pending. . Pertinent Non-Medical Issues Psychosocial: Patient is originally from [facility] but has lived in [place] since . 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 He was and , many years ago. He has 2 children. His daughter, Raissa daniels, lives locally and is very involved in the patient's care. The patient also has a son living in [place], but reportedly has not seen him in the last 5 years. The patient does keep in touch. The patient lives alone. His daughter lives a few blocks away and assist the patient with shopping and meal preparation. Spiritual: The patient comes from [place] tradition. Per his daughter, restorationist and spirituality have not been an important part of his life. Legal: Ethical issues impacting care: No known ethical issues impacting care at this time. Important Contacts Raissa Duncan (daughter) [phone] Anselmo Duncan (son) [phone] Aneesh Walls (friend) [phone] . Prognosis This is an 81-year-old male with an extensive history (decades) of congestive heart failure complicated by underlying COPD, history of alcohol abuse. Patient has been declining since March 2016 particularly with recurrent right pleural effusions. He has required > 5 thoracenteses since that time. He has been living at [facility] since his last discharge from [facility] on 10/20/16. There is known ischemic heart disease and failure may be primarily due to valvular heart disease. There is severe tricuspid regurgitation. Patient There is a reasonable chance he will continue to improve well enough to survive the hospitalization. Based on his history of the last few months, long-term prognosis is not good. Life expectancy is probably in the order of months. Patient would certainly be eligible for hospice services at such time as his goals become mostly comfort oriented. Plan * FULL CODE * Decision making: Patient is currently incapacitated and unable to participate in clarification of medical treatment goals. It is unclear at this time if the patient will ever became this capacity. Per [place] statutes, in the absence of written advanced directives healthcare proxy decision making would fall to the patient's 2 adult children. Patient, has on several occasions during previous hospitalization, verbally stated that he wanted BOTH of his children to participate in health care decision making if he is incapacitated to do so. * GOALS: Aggressive pending family meeting * Attempted to contact patient's daughter via telephone, msg left on voicemail with Palliative Care contact information. Awaiting return phone call. * Symptom managementdyspnea: Patient remains intubated on mechanical ventilator. Tolerated CPAP trials for 2 hours this morning. Follow-up chest x- ray this morning showed perihilar infiltrates consistent with atelectasis and/or congestion; tiny bilateral pleural effusions; cardiomegaly; no pneumothorax was seen. Right-sided chest tube draining straw-colored fluid - cultures pending. Sputum culture + staph aureus. * Symptom managementencephalopathy: Neurology following. Patient arouses briefly to verbal stimuli, opening eyes but does not track. Follows some simple commands. He continues to have myoclonus in his right upper extremity and bilateral lower extremities. Neurology continues to follow this patient. Remains on Dilantin 100 mg every 8 hour. EEG showed no seizure activity 2. Follow-up EEG this morningresults pending. * Symptom managementpain:Probable causes of pain include dyspnea, infection, invasiveness lines, skin breakdown, immobility, bedbound status etc. Patient is on fentanyl drip. Plan to wean off fentanyl today and start Precedex infusion. PRN acetaminophen is available for pain/fever as well. Palliative care will monitor for s/s nonverbal pain and make recommendations as indicated. * Spoke to patient's daughter, Raissa Duncan, at length regarding her father's clinical condition. Patient's daughter appears to be overwhelmed with her father 's declining condition stating, " It is not fair, he deserves more. He was a good father, my mom was kind of out of the picture, you didn't see that back then. He is very intelligent. He was educated and successful - he is not some homeless and educated person." She verbalizes anger that the hospital staff is telling her that her father may not survive this hospitalization. She very adamantly states her goals for her father remain aggressive, and she wishes for everything that can be done for him be done. * Consulted dietary per patient's daughter's request to ensure patient's artificial nutrition does not contain ANY DAIRY products. * Attempted to contact patient's son, Anselmo Duncan, via telephone. Message left on voicemail with palliative care contact information. Awaiting return phone call. Per nursing report, patient's son has verbalized that he believes transitioning to comfort focused care is in his father's best interest. * Palliative care will continue to follow this patient throughout his hospitalization to establish trust, assist with symptom management and clarification of medical treatment goals. . (Sujatha Elliott) Attestation To help prompt me to consider important information that might be impacting today's encounter and assessment, information from prior notes written by myself or my colleagues may have been "brought forward" into today's note. My signature on this note, however, is an attestation that I personally performed the exam, history, and/or decision-making noted today, and, unless otherwise indicated, the interactions with patient, family, and staff as well as the review of records all occurred today. I also attest that the listed assessment and stated plan reflect my best clinical judgment today based on the combination of historical information, prior notes, and today's exam/ interactions. When time spent is documented, it refers only to time spent today by the signer, or if indicated, combined time spent today by collaborating physician/nurse practitioner. . (Sujatha Elliott) Collaborating MD Comments . Chart reviewed. Cased discussed with palliative care OPTICAL GOODS WORKER. Above OPTICAL GOODS WORKER note reviewed and I concur. . (Vignesh Garcia MD) Sujatha Elliott Nov 14, 2016 13:40 Vignesh Garcia MD January 20, 2017 14:40
[2016-11-14] MEDS: WARFARIN SOD 3 MG TAB PO SCH (17:39)
--- NOTE | 2016-11-14 18:52 | HHI.PR ---
Subjective Remarks 81 YOWM with VDRF,Pl effusion Right chest tube draining On PRVC AC, Fi02 40% Has Jerky movements No fever Minimal chest tube drainage On Precedex tolerated CPAP Objective Vital Signs Vital Signs Date Time Temp Pulse Resp B/P Pulse Ox O2 Delivery O2 Flow Rate FiO2 11/14/16 18:00 104 11/14/16 16:00 104 11/14/16 16:00 40 11/14/16 16:00 98.3 105 24 77/46 96 11/14/16 15:28 93 40 11/14/16 14:00 104 11/14/16 12:00 98.9 113 28 156/60 96 11/14/16 12:00 104 11/14/16 12:00 40 11/14/16 10:59 94 40 11/14/16 10:00 104 11/14/16 08:51 40 11/14/16 08:00 104 11/14/16 08:00 99.2 85 22 136/65 96 11/14/16 08:00 40 11/14/16 07:41 96 40 11/14/16 06:00 98 11/14/16 04:02 96 40 11/14/16 04:00 100 11/14/16 04:00 40 11/14/16 04:00 99.6 100 22 132/60 91 144/58 11/14/16 02:00 93 11/14/16 01:03 95 40 11/14/16 00:00 40 11/14/16 00:00 97 11/14/16 00:00 99.7 97 22 165/82 94 165/69 11/13/16 22:02 94 40 11/13/16 22:00 85 11/13/16 20:00 99.5 101 22 142/67 94 137/54 11/13/16 20:00 101 11/13/16 20:00 40 11/13/16 19:26 95 40 I/O 11/13/16 11/13/16 11/13/16 11/14/16 11/14/16 11/14/16 07:00 15:00 23:00 07:00 15:00 23:00 Intake Total 536 ml 846 ml 643 ml 895 ml 684 ml Output Total 450 ml 350 ml 395 ml 725 ml 2200 ml Balance 86 ml 496 ml 248 ml 170 ml -1516 ml Intake IV Total 245 ml 202 ml 220 ml 547 ml 231 ml Tube Feeding 291 ml 444 ml 423 ml 348 ml 253 ml Other 200 ml 200 ml Output Urine Total 250 ml 300 ml 375 ml 575 ml 2200 ml Chest Tube Drainage Total 200 ml 50 ml 20 ml 150 ml # Bowel Movements 0 Result Diagram: 11/14/16 1050 11/14/16 1030 Objective Remarks GENERAL: Elderly male, On Vent SKIN: Warm and dry. HEAD: Normocephalic. EYES: No scleral icterus. No injection or drainage. NECK: Supple, trachea midline. No JVD or lymphadenopathy. CARDIOVASCULAR: Regular rate and rhythm without murmurs, gallops, or rubs. RESPIRATORY: Breath sounds equal bilaterally. No accessory muscle use. Right chest tube draining GASTROINTESTINAL: Abdomen soft, non-tender, nondistended. MUSCULOSKELETAL: No cyanosis, or edema. BACK: Nontender without obvious deformity. No CVA tenderness. A/P Assessment and Plan VDRF Pleural effusion, s/p right chest tube Sz/ Encephalopathy AF CHF PLAN: Cont Vent support CPAP trial in AM Chest tube to drain Will need Pleurodesis before pulling chest tube. On Coumadin, monitor INR ABX per Ash Hdz MD Nov 14, 2016 18:51
[2016-11-14] MEDS: ATENOLOL 50 MG TAB PO SCH (20:07)
--- NOTE | 2016-11-14 22:52 | MG ---
cc: HERMELINDA MERCADO MD Lab No: [id number] Date: 11/14/16 Age: 81 Sex: M Race: 1935 An 81-year-old, history of respiratory distress, intubated. 4-5 Hz theta activity 20-50 microvolts with admixed 2-3 Hz delta activity occurring in a generalized fashion. High-frequency electrical artifact in the frontal channels throughout the recording. Limited driving with photic stimulation. Mild EEG variability reactivity. Single EKG showing sinus rhythm. INTERPRETATION Moderate encephalopathy, improved from previous EEG. No epileptic activity noted. Clinical correlation. MD SHANNAN Turner/ /10:07 PM /10:49 PM
[2016-11-15] VITALS (18 sets, daily range): BP systolic 131–183; BP diastolic 47–79; PULSE 60–104; RESP 18–24; TEMP 98–99.8; O2SAT 92–98
[2016-11-15] MEDS: PHENYTOIN INJ 100 MG/2 ML VIAL IV PUSH SCH ×3 (02:47→16:47)
[2016-11-15] MEDS: DEXMEDETOMIDINE INJ 50 ML IV SCH ×6 (02:48→21:38)
[2016-11-15] MEDS: LORazepam 2 MG/ML VIAL IV PUSH PRN ×2 (02:52→05:38)
[2016-11-15] MEDS: RESP: ALBUTEROL 2.5 MG/IPRATROPIUM 0.5 MG NEB (SCH) INH ×6 (03:28→22:58)
[2016-11-15] MEDS: CEFEPIME INJ 2,000 MG in SODIUM CHLORIDE 0.9% INJ 100 ML IV SCH ×2 (04:28→13:06)
[2016-11-15 05:27] LABS: INTERNATIONAL NORMALIZED RATIO 1.8 RATIO
[2016-11-15] MEDS: INSULIN NovoLIN REGULAR SUPPLEMENTAL SCALE SQ SCH ×4 (05:38→17:17)
[2016-11-15] MEDS ORDERED: BUMETANIDE INJ 1 MG/4 ML VIAL IV PUSH ONE (07:30)
[2016-11-15] MEDS ORDERED: POTASSIUM CHLOR 40 MEQ PREMIX 100 ML IV ONE (07:30)
[2016-11-15] MEDS: methylPREDNISolone SOD SUCC 40 MG/1 ML VIAL IV PUSH SCH ×2 (07:48→20:21)
[2016-11-15] MEDS: SODIUM CHLORIDE 0.9% FLUSH 5 ML FLUSH FLUSH SCH ×2 (07:49→20:21)
[2016-11-15] MEDS: CAPTOPRIL 50 MG TAB PO SCH ×3 (07:50→16:46)
[2016-11-15] MEDS: ATENOLOL 50 MG TAB PO SCH ×3 (07:50→21:52)
[2016-11-15] MEDS: CHLORHEXIDINE 0.12% (ORAL KIT) 15 ML CUP MT SCH ×2 (07:51→20:22)
[2016-11-15] MEDS: SODIUM CHLORIDE 0.9% FLUSH 5 ML FLUSH IVF SCH (08:03)
--- NOTE | 2016-11-15 09:09 | RADRPT ---
EXAM DATE/TIME: 11/15/2016 08:03 [facility] COMPARISON: CHEST SINGLE AP, November 14, 2016, 10:32. INDICATIONS : Respiratory disease. MEDICAL HISTORY : Stroke. Congestive heart failure. Chronic obstructive pulmonary disease. SURGICAL HISTORY : None. ENCOUNTER: Subsequent ACUITY: 2 weeks PAIN SCORE: Non-responsive. LOCATION: Bilateral chest FINDINGS: The heart is enlarged. A small left pleural effusion is noted. Mild pulmonary vascular congestion i s stable. A small right-sided chest tube remains in position in the right lung base. The endotrache al, nasogastric tube and right internal jugular central line are stable. There is no evidence of pne umothorax. CONCLUSION: 1. Mild pulmonary vascular congestion. 2. Cardiomegaly. 3. Small left pleural effusion. 4. Multiple tubes and lines are stable. 5. No evidence of pneumothorax. Jonny Velasco MD on November 15, 2016 at 9:02 Board Certified Radiologist. This report was verified electronically.
[2016-11-15 10:10] LABS: BLOOD GAS CARBOXYHEMOGLOBIN 1.6 % (0-4); BLOOD GAS HCO3 28 mmol/L (22-26); BLOOD GAS O2 HGB SATURATION 96 % (90-100); BLOOD GAS OXYGEN CONTENT 15.1 Vol % (12.0-20.0); BLOOD GAS PCO2 43 mmHg (38-42); BLOOD GAS PO2 112 mmHg (61-120); BLOOD GAS TOTAL HGB 11.1 G/DL (12.0-16.0); CRITICAL VALUE NO; DRAW SITE ART LINE; FIO2 40 %; OXYGEN DEVICE VENTILATOR; STAT NO; TEMP CORR TO 98.6; VENT SETTINGS CPAP 5/10PS
--- NOTE | 2016-11-15 10:29 | HHI.CCPN ---
Subjective Remarks/Hospital Course This is an 81-year-old male who has had multiple readmissions over the past few months for a recurrent right-sided pleural effusion. He represents from his group home facility with recurrent right-sided pleural effusion as well as hypoxia and somnolence. He was found to have significant hypercarbia and a PCO2 in the 90s. He was initially placed on BiPAP and admitted to the [facility]. He became more somnolent and his oxygen saturation began to decline. At this point a critical care medicine is consulted to evaluate and manage his hypercarbic respiratory failure. Because he is failed his trial of noninvasive positive pressure ventilation, we will move towards intubating the patient. I evaluated the patient and he is essentially unresponsive and obtunded and only minimally withdrawing to pain. I can obtain no additional history from the patient. Subjective: 11/09: Early this a.m. at approximately 06:30 the patient was noted to have a grand mal seizure lasting approximately 60 seconds followed by a small tonic- clonic seizure lasting 30 seconds involving the lower extremities. The patient received Ativan 2 mg with cessation of seizure activity. Stat CT of the brain without contrast was obtained showed no acute abnormality. EEG was obtained previously awaiting results. Prior to the event the patient was noted to be on a fentanyl infusion at approximately 250 mcg/h. The patient was noted to be a GCS 10T, squeezing my hand. 11/10: The patient was noted to have multiple seizures requiring interventions with IV Ativan. Described as tonic-clonic in nature with eyes rolled back in the head. Gross motor movement shaking 4 extremities. Today the patient was noted to have a positive growth and blood cultures. WBC count elevated. Ammonia level was drawn less than 10, lactate was noted to be 2.2 this morning. Pleural fluid culture negative growth to date. 11/11: On stimulation patient continues to have jerking movement of all extremities. EEG negative for seizures. Check MRI today. Dr. Kirkland is neurology. Remains on 2 mcg/min of Levophed 11/12: Per neurologist, patient had witnessed with tonic convulsions started over right arm and propagated to left UE and both LE with fluttering of the eyes and upward gaze.Loaded with Dilantin iv infusion and a maintenance dose of 100mg Q8h, Stat EEG negative for seizures. Its unclear to me whether it is seizure or myoclonus 11/13: No change in neuro status. Continues to have jerking movements off lower extremity when stimulated. EEG 2 have been negative for seizures. We'll hold sedation for neuro exam 11/14: On sedation hold opens eyes. Appears to follow commands and upper extremity. Still has some tremulousness of the extremities. Remains off pressors 11/15: Remains on Precedex intermittently following commands for RN. Placed on CPAP tolerating well. No evidence of myoclonus now Objective Vital Signs Date Time Temp Pulse Resp B/P Pulse Ox O2 Delivery O2 Flow Rate FiO2 11/15/16 07:30 40 11/15/16 07:30 95 11/15/16 06:00 68 11/15/16 04:00 98.5 19 134/66 143/47 Intake and Output 11/14/16 11/14/16 11/15/16 08:00 16:00 00:00 Intake Total 895 ml 684 ml 652 ml Output Total 725 ml 2200 ml 1410 ml Balance 170 ml -1516 ml -758 ml Result Diagram: 11/14/16 1050 11/14/16 1030 Other Results Microbiology Date/Time Procedure Status Source Growth 11/12/16 17:00 Gram Stain - Final Complete Sputum Endotracheal 11/12/16 17:00 Sputum Culture - Final Complete Staphylococcus Aureus Laboratory Tests Test 11/15/16 10:00 Blood Gas Puncture Site ART LINE Blood Gas Patient Temperature 98.6 Blood Gas HCO3 28 mmol/L (22-26) Blood Gas Base Excess 4.0 mmol/L (-2-2) Blood Gas Oxygen Saturation 96 % (90-100) Arterial Blood pH 7.44 (7.380-7.420) Arterial Blood Partial 43 mmHg (38-42) Pressure CO2 Arterial Blood Partial 112 mmHg Pressure O2 (61-120) Arterial Blood Oxygen Content 15.1 Vol % (12.0-20.0) Arterial Blood 1.6 % (0-4) Carboxyhemoglobin Arterial Blood Methemoglobin 1.0 % (0-2) Blood Gas Hemoglobin 11.1 G/DL (12.0-16.0) Oxygen Delivery Device VENTILATOR Blood Gas Ventilator Setting CPAP 5/10PS Blood Gas Inspired Oxygen 40 % Imaging Last [address] 11/07/161955 Signed Impressions: Service Date/Time: October 20:38 - CONCLUSION: No acute intracranial abnormality demonstrated. Chronic white matter and old ischemic changes. Dhruv Foster MD Chest X-Ray 11/07/161955 Signed Impressions: Service Date/Time: October 20:54 - CONCLUSION: Worsening bilateral airspace disease and pleural effusions. Dhruv Foster MD Objective Remarks GENERAL: This is a elderly critically ill-appearing cachectic male, intubated and sedated with Precedex HEENT: Normocephalic. Atraumatic. Pupils equal, round, reactive. Mucous membranes are moist and pink. NECK: Trachea is midline. No JVD. Orotracheally intubated CHEST: Right sided chest tube connected to pleural vac at 40 cm of water pressure. Distant breath sounds. No air leak CARDIOVASCULAR: Normal rate, regular rhythm. No appreciable murmurs. ABDOMEN: After, nontender, nondistended. No guarding. MUSCULOSKELETAL: 1+ peripheral edema. Distal pulses 2+ NEUROLOGICAL: Opens eyes spontaneously. Intermittently follows commands on UE. No shaking of extremities noted today Urinary Catheter: Yes Assessment to: Continue Date of Insertion: Nov 08, 2016 Side: Right Location: Internal, Jugular A/P Assessment and Plan Assessment: This is an 81-year-old male with history of prior recurrent right pleural effusions and COPD now presents with acute hypercarbic and hypoxic respiratory failure which has failed noninvasive positive pressure ventilation. Intubated and placed on mechanical ventilation.Covering COPD exacerbation, as well as healthcare associated pneumonia given his history of being on Levaquin at his group home facility. He remains critically ill. I am not sure that we will be able to get him through this hospitalization, and his recurrent respiratory failures are clearly making him more deconditioned every time he comes in the hospital. Despite this, his daughter continues to progress for aggressive measures. Plan by systems: Neurologic: Myoclonus-improving CO2 narcosis Metabolic encephalopathy Mild dementia -Currently on Precedex infusion Vent synchrony and to facilitate ventilator weaning -Ativan PRN for breakthrough seizures -EEG negative 11/10/15, 11/11/16 (moderate to severe encephalopathy, no seizure) -11/08 CT of the brain-no acute abnormality. 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 Also question of amyloid -Neurology impression-probable anoxic injury. Neuro exam improving Respiratory: Acute hypercarbic and hypoxic respiratory failure Recurrent right pleural effusion s/p chest tube placement Right pneumothorax-resolved Possible healthcare associated pneumonia COPD exacerbation Methylprednisolone 60 mg IV every 12 DuoNeb every 4 and every 2 when necessary -Pulmonary Dr. Valenzuela, patient will need pleurodesis prior to removal of chest tube Head of bed at 30, Vent bundle Wean FiO2 for goal SPO2 greater than 90% Daily SBT, mental status improving. Vent day 10 -possible extubation today 11/08 S/P CT guided IR drainage of recurrent right posterior pleural effusion, unable to perform pleurodesis, maintain 40cm of suction to pleuravac Antibiotics as described below Cardiovascular: Severe pulmonary hypertension A. fib RVR Hypertension Maintain map greater than 60-65 Resumed home antihypertensives (captopril and atenolol 11/14/16) --Monitor CVP Renal: Maintain Vital for accurate --Strict I/Os FEN/GI: Acute intravascular volume overload Acute protein calorie malnutritionsevere Metabolic alkalosis Continue tube feeds, Jevity 1.5 goal rate 60 cc/hour-hold for possible extubation ICU electrolyte protocol Lasix and Diamox discontinued --Give Bumex 2 mg IV x1 11/14, give 1 mg today Heme/ID: Possible healthcare associated pneumonia COPD exacerbation Leukocytosis CBC CMP today - ID consulted by Dr. Gaspar. Dr. Topete following Does not meet transfusion triggers at this time Continue vancomycin and cefepime. Discontinued Levaquin due to seizures versus myoclonus 11/08 blood -micrococcus 08/28 possible contaminant - Urine cultures-NGTD --Sputum cx 11/12/16 with staph aureus Endocrine: Hyperglycemia of critical illness -- SSI, medium scale, every 6 hours Prophylaxis: GI Prophylaxis Protonix 40 mg IV every 24 hours DVT Prophylaxis -- SCDs Patient on Coumadin, INR therapeutic pharmacy consulted for Coumadin dosing Lines: Peripheral IVsx 2 . central line Vital Dispo: Discussed medical update with daughter who desires aggressive treatment at this time. spoke with [facility] [employer] at bedside. palliative care o This patient remains critically ill with one or more organ systems which are or may become a threat to life. I have spent in excess of 32 minutes discontinuously in the care and management of this patient. This time is exclusive of procedures, and includes, but is not limited to, evaluation of the patient, review of the medical record, discussions with family, consultants, nursing staff, or respiratory therapy, and documentation in the medical record. Rebecca Bartlett MD Nov 15, 2016 10:29
[2016-11-15 13:11] LABS: ALKALINE PHOSPHATASE 156 U/L (45-117); ALT (GPT) 103 U/L (12-78); ANION GAP 3 MEQ/L (5-15); AST (GOT) 109 U/L (15-37); BICARBONATE 31.3 MEQ/L (21.0-32.0); BLOOD UREA NITROGEN 27 MG/DL (7-18); CHLORIDE 111 MEQ/L (98-107); GLOMERULAR FILTRATION RATE 132 ML/MIN (>89); POTASSIUM 5.3 MEQ/L (3.5-5.1); SODIUM (NA) 145 MEQ/L (136-145); TOTAL BILIRUBIN ADULT 0.7 MG/DL (0.2-1.0)
--- NOTE | 2016-11-15 15:38 | HHI.IDPN ---
Subjective Subjective Remarks remains on vent, placed on CPAP no more myoclonus intermittently FC afebrile Unremarkable MRI and EEG ?amiloides: puncrtate hemorrhages Antibiotics cefepime vanco Allergies: Coded Allergies: No Known Allergies (Verified , 11/07/16) Objective . Vital Signs Date Time Temp Pulse Resp B/P Pulse Ox O2 Delivery O2 Flow Rate FiO2 11/15/16 11:48 97 40 11/15/16 08:00 40 11/15/16 07:30 40 11/15/16 07:30 95 40 11/15/16 06:00 68 11/15/16 04:00 40 11/15/16 04:00 98.5 70 19 134/66 93 143/47 11/15/16 04:00 70 11/15/16 03:30 96 40 11/15/16 02:00 82 11/15/16 00:00 98.4 98 24 166/79 92 183/72 11/15/16 00:00 40 11/15/16 00:00 98 11/14/16 23:38 95 40 11/14/16 22:00 89 11/14/16 20:00 98.1 75 22 118/58 94 133/41 11/14/16 20:00 75 11/14/16 20:00 40 11/14/16 19:48 94 40 11/14/16 18:00 104 11/14/16 16:00 104 11/14/16 16:00 40 11/14/16 16:00 98.3 105 24 77/46 96 11/14/16 11/14/16 11/15/16 15:00 23:00 07:00 Intake Total 684 ml 652 ml 781 ml Output Total 2200 ml 1410 ml 600 ml Balance -1516 ml -758 ml 181 ml Intake IV Total 231 ml 290 ml 521 ml Tube Feeding 253 ml 302 ml 260 ml Tube Irrigant 60 ml Other 200 ml Output Urine Total 2200 ml 1300 ml 450 ml Chest Tube Drainage Total 110 ml 150 ml . Laboratory Tests Test 11/14/16 10:50 White Blood Count 10.5 TH/MM3 Red Blood Count 3.40 MIL/MM3 Hemoglobin 10.8 GM/DL Hematocrit 33.8 % Mean Corpuscular Volume 99.6 FL Mean Corpuscular Hemoglobin 31.9 PG Mean Corpuscular Hemoglobin 32.1 % Concent Red Cell Distribution Width 16.3 % Platelet Count 109 TH/MM3 Mean Platelet Volume 9.1 FL Neutrophils (%) (Auto) 86.5 % Lymphocytes (%) (Auto) 4.4 % Monocytes (%) (Auto) 8.9 % Eosinophils (%) (Auto) 0.1 % Basophils (%) (Auto) 0.1 % Neutrophils # (Auto) 9.1 TH/MM3 Lymphocytes # (Auto) 0.5 TH/MM3 Monocytes # (Auto) 0.9 TH/MM3 Eosinophils # (Auto) 0.0 TH/MM3 Basophils # (Auto) 0.0 TH/MM3 CBC Comment AUTO DIFF Differential Comment AUTO DIFF CONFIRMED Platelet Estimate LOW Platelet Morphology Comment NORMAL Ovalocytes 1+ Laboratory Tests Test 11/14/16 11/14/16 11/15/16 03:38 10:30 12:00 Creatinine 0.67 MG/DL 0.61 MG/DL 0.59 MG/DL Estimat Glomerular Filtration 114 ML/MIN 127 ML/MIN 132 ML/MIN Rate Sodium Level 149 MEQ/L 145 MEQ/L Potassium Level 4.1 MEQ/L 5.3 MEQ/L Chloride Level 115 MEQ/L 111 MEQ/L Carbon Dioxide Level 28.3 MEQ/L 31.3 MEQ/L Anion Gap 6 MEQ/L 3 MEQ/L Blood Urea Nitrogen 30 MG/DL 27 MG/DL Random Glucose 82 MG/DL 100 MG/DL Calcium Level 8.3 MG/DL 8.4 MG/DL Magnesium Level 2.2 MG/DL Total Bilirubin 0.6 MG/DL 0.7 MG/DL Aspartate Amino Transf 59 U/L 109 U/L (AST/SGOT) Alanine Aminotransferase 66 U/L 103 U/L (ALT/SGPT) Alkaline Phosphatase 125 U/L 156 U/L Total Protein 5.4 GM/DL 5.7 GM/DL Albumin 2.1 GM/DL 2.2 GM/DL Microbiology Date/Time Procedure Status Source Growth 11/12/16 17:00 Gram Stain - Final Complete Sputum Endotracheal 11/12/16 17:00 Sputum Culture - Final Complete Staphylococcus Aureus Imaging Last Impressions Chest X-Ray 11/15/16 0000 Signed Impressions: Service Date/Time: Tuesday, November 15, 2016 08:03 - CONCLUSION: 1. Mild pulmonary vascular congestion. 2. Cardiomegaly. 3. Small left pleural effusion. 4. Multiple tubes and lines are stable. 5. No evidence of pneumothorax. Jonny Velasco MD Brain MRI 11/11/16 0000 Signed Impressions: Service Date/Time: Friday, November 11, 2016 12:53 - CONCLUSION: 1. 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 2. 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 The others would be consistent with punctate, remote areas of hemorrhage suggesting possibility of amyloid. Eitan Mendoza MD Head CT 11/09/16 0000 Signed Impressions: Service Date/Time: Wednesday, November 09, 2016 10:29 - CONCLUSION: Stable CT scan of the brain. Pradeep Rodriguez MD Chest Tube Insertion 11/08/16 0000 Signed Impressions: Service Date/Time: Tuesday, November 08, 2016 12:46 - CONCLUSION: Uncomplicated right chest tube placement as above. 1500 cc of fluid removed and sent for culture. Post CT scan reveals a large. pleural rind . The right lung may well not reexpanded. A.m. chest x-ray is pending. Cultures pending. Kun Mendoza MD FACR CT Angiography 11/07/16 0000 Signed Impressions: Service Date/Time: October 20:40 - CONCLUSION: 1. No pulmonary embolus. 2. Marked cardiac enlargement, especially the atria. 3. Bilateral effusions and atelectasis about the same on the left and considerably worse on the right. Right pneumothorax seen previously has resolved. Dhruv Foster MD Physical Exam CONSTITUTIONAL/GENERAL: This is an adequately nourished patient, in no apparent distress. Intubated on mechanical vent TUBES/LINES/DRAINS: SKIN: No jaundice, rashes, or lesions. CARDIOVASCULAR: Regular rate and rhythm without murmurs, gallops, or rubs. No JVD. Peripheral pulses symmetric. RESPIRATORY/CHEST: Symmetric, unlabored respirations. Clear to auscultation. Breath sounds equal bilaterally. No wheezes, rales, or rhonchi. GASTROINTESTINAL: Abdomen soft, non-tender, nondistended. No hepato-splenomegaly , or palpable masses. No guarding. Bowel sounds present. GENITOURINARY: Without palpable bladder distension. Vital catheter in place with clear dutch coloured urine MUSCULOSKELETAL: Extremities without clubbing, cyanosis, or edema. NEUROLOGICAL: remains obtunded, opens eyes to tactivce stimulai. but not tracks or follows commands for me. Withdraws to noxious stimuli; + FC per report No myoclonus noted PSYCHIATRIC: unable to assess Assessment & Plan Remarks Micrococcus bactermia, low grade doubt clin significance Recurrent R dside pleraul effusion, clx are negative suspected sz, neuro w/u in progress - EEG neg - MRI ? amiloidod=sis Low grade leukocytosis acute VDRF MSSA PNA - chk sputum clx - dc vancomycin -dc cefepime - Start CFTX Hyun Topete MD Nov 15, 2016 15:38
[2016-11-15] MEDS ORDERED: WARFARIN SOD 4 MG TAB PO SCH (16:00)
--- NOTE | 2016-11-15 16:14 | HHI.PR ---
Subjective Remarks 81 YOWM with VDRF,Pl effusion Right chest tube draining No fever Minimal chest tube drainage On Precedex tolerated CPAP Objective Vital Signs Vital Signs Date Time Temp Pulse Resp B/P Pulse Ox O2 Delivery O2 Flow Rate FiO2 11/15/16 15:43 97 40 11/15/16 12:00 81 11/15/16 12:00 40 11/15/16 12:00 99.8 81 18 136/76 97 11/15/16 11:48 97 40 11/15/16 10:00 87 11/15/16 08:00 85 11/15/16 08:00 98.9 85 22 133/64 96 11/15/16 08:00 40 11/15/16 07:30 40 11/15/16 07:30 95 40 11/15/16 06:00 68 11/15/16 04:00 40 11/15/16 04:00 98.5 70 19 134/66 93 143/47 11/15/16 04:00 70 11/15/16 03:30 96 40 11/15/16 02:00 82 11/15/16 00:00 98.4 98 24 166/79 92 183/72 11/15/16 00:00 40 11/15/16 00:00 98 11/14/16 23:38 95 40 11/14/16 22:00 89 11/14/16 20:00 98.1 75 22 118/58 94 133/41 11/14/16 20:00 75 11/14/16 20:00 40 11/14/16 19:48 94 40 11/14/16 18:00 104 I/O 11/14/16 11/14/16 11/14/16 11/15/16 11/15/16 11/15/16 07:00 15:00 23:00 07:00 15:00 23:00 Intake Total 895 ml 684 ml 652 ml 781 ml 698 ml Output Total 725 ml 2200 ml 1410 ml 600 ml 1080 ml Balance 170 ml -1516 ml -758 ml 181 ml -382 ml Intake IV Total 547 ml 231 ml 290 ml 521 ml 268 ml Tube Feeding 348 ml 253 ml 302 ml 260 ml 190 ml Tube Irrigant 60 ml Other 200 ml 240 ml Output Urine Total 575 ml 2200 ml 1300 ml 450 ml 1000 ml Chest Tube Drainage Total 150 ml 110 ml 150 ml 80 ml Result Diagram: 11/14/16 1050 11/15/16 1200 Objective Remarks GENERAL: Elderly male, On Vent SKIN: Warm and dry. HEAD: Normocephalic. EYES: No scleral icterus. No injection or drainage. NECK: Supple, trachea midline. No JVD or lymphadenopathy. CARDIOVASCULAR: Regular rate and rhythm without murmurs, gallops, or rubs. RESPIRATORY: Breath sounds equal bilaterally. No accessory muscle use. Right chest tube draining GASTROINTESTINAL: Abdomen soft, non-tender, nondistended. MUSCULOSKELETAL: No cyanosis, or edema. BACK: Nontender without obvious deformity. No CVA tenderness. A/P Assessment and Plan VDRF Pleural effusion, s/p right chest tube Sz/ Encephalopathy AF CHF PLAN: Cont Vent support CPAP trial Chest tube to drain Will need Pleurodesis before pulling chest tube. On Coumadin, monitor INR ABX per Ash Hdz MD Nov 15, 2016 16:14
--- NOTE | 2016-11-15 16:46 | HHI.HCPN ---
Reason for visit a. To assist with evaluation and management of symptoms including: Encephalopathy, pain, dyspnea b. To assist medical decision maker(s) with: better understanding of current medical conditions; weighing benefits/burdens of medical treatment options; making medical treatment decisions. . Subjective/Interval History Patient remains in the [facility], room 500. Patient tolerating CPAP at this time. Follow-up chest x-ray this morning showing mild pulmonary vascular congestion, cardiomegaly, small left pleural effusion, no evidence of pneumothorax. Remains on Precedex intermittently. Opens eyes briefly to verbal stimuli, did not not follow commands on examination. However, nursing reports that the patient is intermittently able to do so. Patient had third EEG yesterday which showed moderate encephalopathy that has improved from the previous EEG , no epileptic activity was noted. Myoclonus activity appears to have resolved at this time. Neurology continues to follow. Afebrile. Micrococcus bacteremia on admission. Sputum culture on 11/12/16: + Staph Aureus. Infectious disease continues to follow. Cefepime and vancomycin discontinued, patient started on ceftriaxone. Dietary consulted 11/14/16 regarding daughter's verbalized concern that TF had milk in it, all formulas at [facility] are lactose-free. Patient is currently tolerating tube feeding, Jevity 1.5 at 50 mL's per hour. Dietary will continue to follow patient throughout his hospitalization. Advance Directives Advance Directive Specifics Health Care Surrogate(s): == No written designation of health care surrogacy. == Patient , has on several occasions, verbally stated that he wants BOTH of his children to participate in health care decision making if he is incapacitated to do so. . Documented care wishes: Patient's daughter has indicated during prior hospitalization that her father completed some type of written advanced directives but has not provided copies of these documents to date. . Objective Vital Signs Date Time Temp Pulse Resp B/P Pulse Ox O2 Delivery O2 Flow Rate FiO2 11/15/16 15:43 97 40 11/15/16 11:48 97 40 11/15/16 10:00 87 11/15/16 08:00 85 11/15/16 08:00 98.9 85 22 133/64 96 11/15/16 08:00 40 11/15/16 07:30 40 11/15/16 07:30 95 40 11/15/16 06:00 68 11/15/16 04:00 40 11/15/16 04:00 98.5 70 19 134/66 93 143/47 11/15/16 04:00 70 11/15/16 03:30 96 40 11/15/16 02:00 82 11/15/16 00:00 98.4 98 24 166/79 92 183/72 11/15/16 00:00 40 11/15/16 00:00 98 11/14/16 23:38 95 40 11/14/16 22:00 89 11/14/16 20:00 98.1 75 22 118/58 94 133/41 11/14/16 20:00 75 11/14/16 20:00 40 11/14/16 19:48 94 40 11/14/16 18:00 104 11/14/16 16:00 104 11/14/16 16:00 40 11/14/16 16:00 98.3 105 24 77/46 96 Intake & Output 11/15/16 11/15/16 07:00 19:00 Intake Total 1433 ml 698 ml Output Total 2010 ml 1080 ml Balance -577 ml -382 ml Intake IV Total 811 ml 268 ml Tube Feeding 562 ml 190 ml Tube Irrigant 60 ml Other 240 ml Output Urine Total 1750 ml 1000 ml Chest Tube Drainage Total 260 ml 80 ml . Physical Exam CONSTITUTIONAL/GENERAL: This is a frail, elderly male patient sedated and intubated on mechanical ventilator. TUBES/LINES/DRAINS: Right IJ central line, left PIV, Pleur-evac chest tube, ETT , OG, soft restraints, podus SKIN: Ecchymoses on upper extremities, multiple scabbed areas Right sided chest tube draining straw-colored fluid. Skin tear right knee with Tegaderm. HEAD: Atraumatic. Normocephalic. EYES: Pupils 3mm, equal and sluggish. ENT: Hearing grossly normal. Nose without bleeding or purulent drainage. Orotracheally intubated. NECK: Trachea midline. Supple, nontender. No palpable thyroid enlargement or nodularity. CARDIOVASCULAR: Tachycardic, regular rhythm. No murmurs, gallops, or rubs. Peripheral pulses symmetric. RESPIRATORY/CHEST: Orotracheally intubated on mechanical ventilator. Breath sounds diminished. No wheezes, rales, or rhonchi. GASTROINTESTINAL: Abdomen soft, non-tender, nondistended. No guarding. Bowel sounds present. GENITOURINARY: Without palpable bladder distension. Vital catheter in place. MUSCULOSKELETAL: Extremities without clubbing, cyanosis, or edema. BLE with chronic pigment changes secondary to peripheral vascular disease. LYMPHATICS: No palpable cervical or supraclavicular adenopathy. NEUROLOGICAL: Opens eyes to verbal stimuli, does not track. Does not follow commands. PSYCHIATRIC: Unable to assess secondary to patient's clinical condition. . Diagnostic Tests Laboratory Laboratory Tests Test 11/13/16 11/13/16 11/14/16 11/14/16 03:31 18:21 03:38 10:30 Prothrombin Time 26.5 SEC 26.6 SEC (9.8-11.6) (9.8-11.6) Prothromb Time International 2.3 RATIO 2.3 RATIO Ratio Phenytoin (Dilantin) Level 9.0 MCG/ML 10.3 MCG/ML (10.0-20.0) (10.0-20.0) Creatinine 0.67 MG/DL 0.61 MG/DL (0.60-1.30) (0.60-1.30) Estimat Glomerular Filtration 114 ML/MIN 127 ML/MIN Rate (>89) (>89) Sodium Level 149 MEQ/L (136-145) Potassium Level 4.1 MEQ/L (3.5-5.1) Chloride Level 115 MEQ/L (98-107) Carbon Dioxide Level 28.3 MEQ/L (21.0-32.0) Anion Gap 6 MEQ/L (5-15) Blood Urea Nitrogen 30 MG/DL (7-18) Random Glucose 82 MG/DL (74-106) Calcium Level 8.3 MG/DL (8.5-10.1) Magnesium Level 2.2 MG/DL (1.5-2.5) Total Bilirubin 0.6 MG/DL (0.2-1.0) Aspartate Amino Transf 59 U/L (15-37) (AST/SGOT) Alanine Aminotransferase 66 U/L (12-78) (ALT/SGPT) Alkaline Phosphatase 125 U/L (45-117) Total Protein 5.4 GM/DL (6.4-8.2) Albumin 2.1 GM/DL (3.4-5.0) Test 11/14/16 11/15/16 11/15/16 11/15/16 10:50 04:20 10:00 12:00 White Blood Count 10.5 TH/MM3 (4.0-11.0) Red Blood Count 3.40 MIL/MM3 (4.50-5.90) Hemoglobin 10.8 GM/DL (13.0-17.0) Hematocrit 33.8 % (39.0-51.0) Mean Corpuscular Volume 99.6 FL (80.0-100.0) Mean Corpuscular Hemoglobin 31.9 PG (27.0-34.0) Mean Corpuscular Hemoglobin 32.1 % Concent (32.0-36.0) Red Cell Distribution Width 16.3 % (11.6-17.2) Platelet Count 109 TH/MM3 (150-450) Mean Platelet Volume 9.1 FL (7.0-11.0) Neutrophils (%) (Auto) 86.5 % (16.0-70.0) Lymphocytes (%) (Auto) 4.4 % (9.0-44.0) Monocytes (%) (Auto) 8.9 % (0.0-8.0) Eosinophils (%) (Auto) 0.1 % (0.0-4.0) Basophils (%) (Auto) 0.1 % (0.0-2.0) Neutrophils # (Auto) 9.1 TH/MM3 (1.8-7.7) Lymphocytes # (Auto) 0.5 TH/MM3 (1.0-4.8) Monocytes # (Auto) 0.9 TH/MM3 (0-0.9) Eosinophils # (Auto) 0.0 TH/MM3 (0-0.4) Basophils # (Auto) 0.0 TH/MM3 (0-0.2) CBC Comment AUTO DIFF Differential Comment AUTO DIFF CONFIRMED Platelet Estimate LOW (NORMAL) Platelet Morphology Comment NORMAL (NORMAL) Ovalocytes 1+ (NORMAL) Prothrombin Time 21.0 SEC (9.8-11.6) Prothromb Time International 1.8 RATIO Ratio Blood Gas Puncture Site ART LINE Blood Gas Patient Temperature 98.6 Blood Gas HCO3 28 mmol/L (22-26) Blood Gas Base Excess 4.0 mmol/L (-2-2) Blood Gas Oxygen Saturation 96 % (90-100) Arterial Blood pH 7.44 (7.380-7.420) Arterial Blood Partial 43 mmHg (38-42) Pressure CO2 Arterial Blood Partial 112 mmHg Pressure O2 (61-120) Arterial Blood Oxygen Content 15.1 Vol % (12.0-20.0) Arterial Blood 1.6 % (0-4) Carboxyhemoglobin Arterial Blood Methemoglobin 1.0 % (0-2) Blood Gas Hemoglobin 11.1 G/DL (12.0-16.0) Oxygen Delivery Device VENTILATOR Blood Gas Ventilator Setting CPAP 5/10PS Blood Gas Inspired Oxygen 40 % Sodium Level 145 MEQ/L (136-145) Potassium Level 5.3 MEQ/L (3.5-5.1) Chloride Level 111 MEQ/L (98-107) Carbon Dioxide Level 31.3 MEQ/L (21.0-32.0) Anion Gap 3 MEQ/L (5-15) Blood Urea Nitrogen 27 MG/DL (7-18) Creatinine 0.59 MG/DL (0.60-1.30) Estimat Glomerular Filtration 132 ML/MIN Rate (>89) Random Glucose 100 MG/DL (74-106) Calcium Level 8.4 MG/DL (8.5-10.1) Total Bilirubin 0.7 MG/DL (0.2-1.0) Aspartate Amino Transf 109 U/L (15-37) (AST/SGOT) Alanine Aminotransferase 103 U/L (12-78) (ALT/SGPT) Alkaline Phosphatase 156 U/L (45-117) Total Protein 5.7 GM/DL (6.4-8.2) Albumin 2.2 GM/DL (3.4-5.0) . Result Diagram: 11/14/16 1050 11/15/16 1200 Microbiology Microbiology Date/Time Procedure Status Source Growth 11/12/16 17:00 Gram Stain - Final Complete Sputum Endotracheal 11/12/16 17:00 Sputum Culture - Final Complete Staphylococcus Aureus . Imaging Last 72 hours Impressions Chest X-Ray 11/15/16 0000 Signed Impressions: Service Date/Time: Tuesday, November 15, 2016 08:03 - CONCLUSION: 1. Mild pulmonary vascular congestion. 2. Cardiomegaly. 3. Small left pleural effusion. 4. Multiple tubes and lines are stable. 5. No evidence of pneumothorax. Jonny Velasco MD Chest X-Ray 11/14/16 0000 Signed Impressions: Service Date/Time: October 10:32 - CONCLUSION: 1. Perihilar infiltrates consistent with atelectasis and/or congestion. 2. Tiny bilateral pleural effusions. 3. Cardiomegaly. 4. Multiple tubes and lines are in good positions. 5. No pneumothorax. Jonny Velasco MD . Procedures 11/08/16: Intubation 11/08/16: Right IJ central line placement 11/08/16: Right chest tube placement with thoracentesis 11/15/16: Left arterial line removed . Assessment and Plan Disease Oriented Problem List: (1) Pleural effusion (2) Congestive heart failure (3) Chronic atrial fibrillation (4) Pneumothorax (5) Hypertension (6) Acute respiratory failure with hypoxia and hypercapnia (7) COPD (chronic obstructive pulmonary disease) (8) Pneumonia (9) Protein-calorie malnutrition, severe Symptom Scale: (1) Dyspnea 0-10 Scale: Unable to quantify Comment: Patient tolerating CPAP at this time. Follow-up chest x-ray this morning showing mild pulmonary vascular congestion, cardiomegaly, small left pleural effusion, no evidence of pneumothorax. Right-sided chest tube draining straw-colored fluid - cultures pending. Sputum culture + staph aureus. . (2) Pain 0-10 Scale: Unable to quantify Comment: Probable causes of pain include dyspnea, infection, invasiveness lines , skin breakdown, immobility, bedbound status etc. Patient is on fentanyl drip. Plan to wean off fentanyl today and start Precedex infusion. PRN acetaminophen is available for pain/fever as well. (3) Encephalopathy 0-10 Scale: Unable to quantify Comment: Remains on Precedex intermittently. Opens eyes briefly to verbal stimuli, did not not follow commands on examination. However, nursing reports that the patient is intermittently able to do so. Patient had third EEG yesterday 10/17/16 which showed moderate encephalopathy that has improved from the previous EEG, no epileptic activity was noted. Myoclonus activity appears to have resolved at this time. Neurology continues to follow. . Pertinent Non-Medical Issues Psychosocial: Patient is originally from [facility] but has lived in [place] since . 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 He was and , many years ago. He has 2 children. His daughter, Raissa daniels, lives locally and is very involved in the patient's care. The patient also has a son living in [place], but reportedly has not seen him in the last 5 years. The patient does keep in touch. The patient lives alone. His daughter lives a few blocks away and assist the patient with shopping and meal preparation. Spiritual: The patient comes from Rastafarian tradition. Per his daughter, tenriism and spirituality have not been an important part of his life. Legal: Ethical issues impacting care: No known ethical issues impacting care at this time. Important Contacts Raissa Duncan (daughter) [phone] Anselmo Duncan (son) [phone] Aneesh Walls (friend) [phone] . Prognosis This is an 81-year-old male with an extensive history (decades) of congestive heart failure complicated by underlying COPD, history of alcohol abuse. Patient has been declining since March 2016 particularly with recurrent right pleural effusions. He has required > 5 thoracenteses since that time. He has been living at [facility] since his last discharge from [facility] on 10/20/16. There is known ischemic heart disease and failure may be primarily due to valvular heart disease. There is severe tricuspid regurgitation. Patient There is a reasonable chance he will continue to improve well enough to survive the hospitalization. Based on his history of the last few months, long-term prognosis is not good. Life expectancy is probably in the order of months. Patient would certainly be eligible for hospice services at such time as his goals become mostly comfort oriented. Code Status: Full Code Plan * FULL CODE * Decision making: Patient is currently incapacitated and unable to participate in clarification of medical treatment goals. It is unclear at this time if the patient will ever became this capacity. Per [place] statutes, in the absence of written advanced directives healthcare proxy decision making would fall to the patient's 2 adult children. Patient, has on several occasions during previous hospitalization, verbally stated that he wanted BOTH of his children to participate in health care decision making if he is incapacitated to do so. * GOALS: Aggressive pending family meeting * Attempted to contact patient's daughter via telephone, msg left on voicemail with Palliative Care contact information. Awaiting return phone call. * Symptom managementdyspnea: Patient tolerating CPAP at this time. Follow-up chest x-ray this morning showing mild pulmonary vascular congestion, cardiomegaly, small left pleural effusion, no evidence of pneumothorax. Right-sided chest tube draining straw-colored fluid - cultures pending. Sputum culture + staph aureus. * Symptom managementencephalopathy: Neurology following. Patient arouses briefly to verbal stimuli, opening eyes but does not track. Follows some simple commands. He continues to have myoclonus in his right upper extremity and bilateral lower extremities. Neurology continues to follow this patient. Remains on Dilantin 100 mg every 8 hour. EEG showed no seizure activity 2. Follow-up EEG this morningresults pending. * Symptom managementpain: Probable causes of pain include dyspnea, infection, invasiveness lines, skin breakdown, immobility, bedbound status etc. On Precedex infusion interment only. PRN acetaminophen is available for pain/fever as well. Palliative care will monitor for s/s nonverbal pain and make recommendations as indicated. * Patient's daughter, Raissa, supports moving forward with tracheostomy. Unable to reach the patient's son, Anselmo. Both children are healthcare proxy decision makers. * Discussed with Dr. Bartlett. * Palliative care will continue to follow this patient throughout his hospitalization to establish trust, assist with symptom management and clarification of medical treatment goals. . Attestation To help prompt me to consider important information that might be impacting today's encounter and assessment, information from prior notes written by myself or my colleagues may have been "brought forward" into today's note. My signature on this note, however, is an attestation that I personally performed the exam, history, and/or decision-making noted today, and, unless otherwise indicated, the interactions with patient, family, and staff as well as the review of records all occurred today. I also attest that the listed assessment and stated plan reflect my best clinical judgment today based on the combination of historical information, prior notes, and today's exam/ interactions. When time spent is documented, it refers only to time spent today by the signer, or if indicated, combined time spent today by collaborating physician/nurse practitioner. . Sujatha Elliott Nov 15, 2016 16:46
[2016-11-15] MEDS: cefTRIAXone INJ 2,000 MG in SODIUM CHLORIDE 0.9% INJ 100 ML IV SCH (16:48)
[2016-11-16] VITALS (18 sets, daily range): BP systolic 114–167; BP diastolic 56–87; PULSE 61–93; RESP 22–28; TEMP 97.2–99.2; O2SAT 92–97
[2016-11-16] MEDS: PHENYTOIN INJ 100 MG/2 ML VIAL IV PUSH SCH ×4 (01:26→23:35)
[2016-11-16] MEDS: DEXMEDETOMIDINE INJ 50 ML IV SCH ×9 (01:28→23:35)
[2016-11-16] MEDS: RESP: ALBUTEROL 2.5 MG/IPRATROPIUM 0.5 MG NEB (SCH) INH ×6 (03:55→23:04)
[2016-11-16] MEDS: LORazepam 2 MG/ML VIAL IV PUSH PRN (04:24)
[2016-11-16 04:52] LABS: INTERNATIONAL NORMALIZED RATIO 1.8 RATIO; PROTHROMBIN TIME - PATIENT 20.1 SEC (9.8-11.6)
[2016-11-16] MEDS ORDERED: SODIUM POLYSTYRENE SULFONATE SUSP 15 GM/60 ML CUP PO ONE (05:15)
[2016-11-16] MEDS: INSULIN NovoLIN REGULAR SUPPLEMENTAL SCALE SQ SCH ×5 (06:00→23:31)
[2016-11-16] MEDS: methylPREDNISolone SOD SUCC 40 MG/1 ML VIAL IV PUSH SCH ×2 (08:10→20:21)
[2016-11-16] MEDS: CHLORHEXIDINE 0.12% (ORAL KIT) 15 ML CUP MT SCH ×2 (08:10→20:00)
[2016-11-16] MEDS: ATENOLOL 50 MG TAB PO SCH ×2 (08:11→20:21)
[2016-11-16] MEDS: SODIUM CHLORIDE 0.9% FLUSH 5 ML FLUSH FLUSH SCH ×2 (08:11→20:20)
[2016-11-16] MEDS: CAPTOPRIL 50 MG TAB PO SCH ×3 (08:11→15:09)
[2016-11-16] MEDS: SODIUM CHLORIDE 0.9% FLUSH 5 ML FLUSH IVF SCH (08:15)
--- NOTE | 2016-11-16 08:19 | HHI.CCPN ---
Subjective Remarks/Hospital Course This is an 81-year-old male who has had multiple readmissions over the past few months for a recurrent right-sided pleural effusion. He represents from his nursing home facility with recurrent right-sided pleural effusion as well as hypoxia and somnolence. He was found to have significant hypercarbia and a PCO2 in the 90s. He was initially placed on BiPAP and admitted to the [facility]. He became more somnolent and his oxygen saturation began to decline. At this point a critical care medicine is consulted to evaluate and manage his hypercarbic respiratory failure. Because he is failed his trial of noninvasive positive pressure ventilation, we will move towards intubating the patient. I evaluated the patient and he is essentially unresponsive and obtunded and only minimally withdrawing to pain. I can obtain no additional history from the patient. Subjective: 11/09: Early this a.m. at approximately 06:30 the patient was noted to have a grand mal seizure lasting approximately 60 seconds followed by a small tonic- clonic seizure lasting 30 seconds involving the lower extremities. The patient received Ativan 2 mg with cessation of seizure activity. Stat CT of the brain without contrast was obtained showed no acute abnormality. EEG was obtained previously awaiting results. Prior to the event the patient was noted to be on a fentanyl infusion at approximately 250 mcg/h. The patient was noted to be a GCS 10T, squeezing my hand. 11/10: The patient was noted to have multiple seizures requiring interventions with IV Ativan. Described as tonic-clonic in nature with eyes rolled back in the head. Gross motor movement shaking 4 extremities. Today the patient was noted to have a positive growth and blood cultures. WBC count elevated. Ammonia level was drawn less than 10, lactate was noted to be 2.2 this morning. Pleural fluid culture negative growth to date. 11/11: On stimulation patient continues to have jerking movement of all extremities. EEG negative for seizures. Check MRI today. Dr. Kirkland is neurology. Remains on 2 mcg/min of Levophed 11/12: Per neurologist, patient had witnessed with tonic convulsions started over right arm and propagated to left UE and both LE with fluttering of the eyes and upward gaze.Loaded with Dilantin iv infusion and a maintenance dose of 100mg Q8h, Stat EEG negative for seizures. Its unclear to me whether it is seizure or myoclonus 11/13: No change in neuro status. Continues to have jerking movements off lower extremity when stimulated. EEG 2 have been negative for seizures. We'll hold sedation for neuro exam 11/14: On sedation hold opens eyes. Appears to follow commands and upper extremity. Still has some tremulousness of the extremities. Remains off pressors 11/15: Remains on Precedex intermittently following commands for RN. Placed on CPAP tolerating well. No evidence of myoclonus now 11/16: On 1.1 mcg/kg/hr of Precedex. No spontaneous eye opening but moves all extremities spontaneously. Not following commands will reduce Precedex, and start weaning trials Objective Vital Signs Date Time Temp Pulse Resp B/P Pulse Ox O2 Delivery O2 Flow Rate FiO2 11/16/16 07:32 97 40 11/16/16 06:00 68 11/16/16 04:00 97.5 24 134/63 Intake and Output 11/15/16 11/15/16 11/16/16 08:00 16:00 00:00 Intake Total 781 ml 698 ml 716 ml Output Total 600 ml 1080 ml 1050 ml Balance 181 ml -382 ml -334 ml Result Diagram: 11/14/16 1050 11/15/16 1200 Other Results Laboratory Tests Test 11/15/16 10:00 Blood Gas Puncture Site ART LINE Blood Gas Patient Temperature 98.6 Blood Gas HCO3 28 mmol/L (22-26) Blood Gas Base Excess 4.0 mmol/L (-2-2) Blood Gas Oxygen Saturation 96 % (90-100) Arterial Blood pH 7.44 (7.380-7.420) Arterial Blood Partial 43 mmHg (38-42) Pressure CO2 Arterial Blood Partial 112 mmHg Pressure O2 (61-120) Arterial Blood Oxygen Content 15.1 Vol % (12.0-20.0) Arterial Blood 1.6 % (0-4) Carboxyhemoglobin Arterial Blood Methemoglobin 1.0 % (0-2) Blood Gas Hemoglobin 11.1 G/DL (12.0-16.0) Oxygen Delivery Device VENTILATOR Blood Gas Ventilator Setting CPAP 5/10PS Blood Gas Inspired Oxygen 40 % Imaging Last [address] 11/07/161955 Signed Impressions: Service Date/Time: October 20:38 - CONCLUSION: No acute intracranial abnormality demonstrated. Chronic white matter and old ischemic changes. Dhruv Foster MD Chest X-Ray 11/07/161955 Signed Impressions: Service Date/Time: October 20:54 - CONCLUSION: Worsening bilateral airspace disease and pleural effusions. Dhruv Foster MD Objective Remarks GENERAL: This is a elderly critically ill-appearing cachectic male, intubated and sedated with Precedex HEENT: Normocephalic. Atraumatic. Pupils equal, round, reactive. NECK: Trachea is midline. No JVD. Orotracheally intubated CHEST: Right sided chest tube connected to pleural vac at 40 cm of water pressure. Distant breath sounds. No air leak. 330 Ml output in 24 hours CARDIOVASCULAR: Normal rate, regular rhythm. No appreciable murmurs. ABDOMEN: After, nontender, nondistended. No guarding. MUSCULOSKELETAL: 1+ peripheral edema. Distal pulses 2+ NEUROLOGICAL: No eye opening today. Moves all extremities spontaneously. Not following commands on 1.1 g per KG per hour of Precedex Urinary Catheter: Yes Assessment to: Continue Date of Insertion: Nov 08, 2016 Vascular Central Line Catheter: Yes Assessment to: Continue Side: Right Location: Internal, Jugular A/P Assessment and Plan Assessment: This is an 81-year-old male with history of prior recurrent right pleural effusions and COPD now presents with acute hypercarbic and hypoxic respiratory failure which has failed noninvasive positive pressure ventilation. Intubated and placed on mechanical ventilation. Covering COPD exacerbation, as well as healthcare associated pneumonia given his history of being on Levaquin at his nursing home facility. He remains critically ill. I am not sure that we will be able to get him through this hospitalization, and his recurrent respiratory failures are clearly making him more deconditioned every time he comes in the hospital. Despite this, his daughter continues to progress for aggressive measures. Plan by systems: Neurologic: Myoclonus-resolved CO2 narcosis Metabolic encephalopathy Mild dementia -Currently on Precedex infusion for Vent synchrony and to facilitate ventilator weaning -Ativan PRN for breakthrough seizures -EEG negative 11/10/15, 11/11/16 (moderate to severe encephalopathy, no seizure) -11/08 CT of the brain-no acute abnormality. 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 Also question of amyloid -Neurology impression-probable anoxic injury. Respiratory: Acute hypercarbic and hypoxic respiratory failure Recurrent right pleural effusion s/p chest tube placement Right pneumothorax-resolved Possible healthcare associated pneumonia COPD exacerbation Methylprednisolone 60 mg IV every 12. Reduce to 40 q12 11/16/16 DuoNeb every 4 and every 2 when necessary --Pulmonary Dr. Valenzuela, patient will need pleurodesis prior to removal of chest tube Head of bed at 30, Vent bundle Wean FiO2 for goal SPO2 greater than 90% Daily SBT, mental status improving. Vent day 11 -possible extubation if he passes SBT 11/08 S/P CT guided IR drainage of recurrent right posterior pleural effusion, unable to perform pleurodesis, maintain 40cm of suction to pleuravac Antibiotics as described below Cardiovascular: Severe pulmonary hypertension A. fib RVR Hypertension Maintain map greater than 60-65 Resumed home antihypertensives (captopril and atenolol 11/14/16) --Monitor CVP Renal: Maintain Vital for accurate --Strict I/Os FEN/GI: Acute intravascular volume overload Acute protein calorie malnutritionsevere Metabolic alkalosis Continue tube feeds, Jevity 1.5 goal rate 60 cc/hour-hold for possible extubation ICU electrolyte protocol Lasix and Diamox discontinued --Give Bumex 2 mg IV x1 11/14, repeated 1 mg IV 11/15 Heme/ID: Possible healthcare associated pneumonia, staph aureus in sputum COPD exacerbation Leukocytosis CBC CMP today - ID consulted by Dr. Gaspar. Dr. Topete following Does not meet transfusion triggers at this time Continue vancomycin and cefepime per IDF. Discontinued Levaquin due to seizures versus myoclonus 11/08 blood -micrococcus 08/28 possible contaminant - Urine cultures-NGTD --Sputum cx 11/12/16 with staph aureus Endocrine: Hyperglycemia of critical illness -- SSI, medium scale, every 6 hours Prophylaxis: GI Prophylaxis Protonix 40 mg IV every 24 hours DVT Prophylaxis -- SCDs Patient on Coumadin, INR therapeutic pharmacy following for Coumadin dosing Lines: Peripheral IVsx 2 . central line Vtial Dispo: Discussed medical update with daughter who desires aggressive treatment at this time. spoke with MUSIC HISTORIAN at bedside. palliative care o This patient remains critically ill with one or more organ systems which are or may become a threat to life. I have spent in excess of 32 minutes discontinuously in the care and management of this patient. This time is exclusive of procedures, and includes, but is not limited to, evaluation of the patient, review of the medical record, discussions with family, consultants, nursing staff, or respiratory therapy, and documentation in the medical record. Rebecca Bartlett MD Nov 16, 2016 08:19
[2016-11-16 08:49] LABS: AUTOMATED NEUTROPHIL # 7.5 TH/MM3 (1.8-7.7); BASOPHIL % 0.2 % (0.0-2.0); EOSINOPHIL # 0.1 TH/MM3 (0-0.4); EOSINOPHIL % 1.5 % (0.0-4.0); HEMATOCRIT 31.9 % (39.0-51.0); LYMPH % 10.1 % (9.0-44.0); MEAN CORPUSCULAR HEMOGLOBIN 33.3 PG (27.0-34.0); MEAN CORPUSCULAR HGB CONC 33.6 % (32.0-36.0); MONO % 10.1 % (0.0-8.0); NEUT % 78.1 % (16.0-70.0); PLATELET COUNT 114 TH/MM3 (150-450); RED BLOOD COUNT 3.22 MIL/MM3 (4.50-5.90); RED CELL DISTRIBUTION WIDTH 15.4 % (11.6-17.2); WHITE BLOOD COUNT 9.6 TH/MM3 (4.0-11.0)
[2016-11-16 08:53] LABS: HEMO FLAGS AUTO DIFF
[2016-11-16 09:14] LABS: ALKALINE PHOSPHATASE 148 U/L (45-117); ALT (GPT) 110 U/L (12-78); ANION GAP 7 MEQ/L (5-15); AST (GOT) 101 U/L (15-37); BLOOD UREA NITROGEN 26 MG/DL (7-18); CHLORIDE 109 MEQ/L (98-107); GLOMERULAR FILTRATION RATE 129 ML/MIN (>89); MAGNESIUM 2.1 MG/DL (1.5-2.5); POTASSIUM 3.8 MEQ/L (3.5-5.1); SODIUM (NA) 147 MEQ/L (136-145); TOTAL BILIRUBIN ADULT 0.4 MG/DL (0.2-1.0)
[2016-11-16 09:43] LABS: BANDS 4 % (0-6); EOSINOPHILS 2 % (0-4); METAMYELOCYTES 2 % (0-1); NEUTROPHIL # MANUAL DIFF 8.1 TH/MM3 (1.8-7.7); OVALOCYTES 1+ (NORMAL); PLATELET ESTIMATE SMEAR LOW (NORMAL); PLATELET MORPHOLOGY NORMAL (NORMAL); POLYS (SEG NEUTROPHILS) 78 % (16-70); SCAN/DIFF FINAL DIFF MANUAL; WBC DIFF SAMPLE 100
[2016-11-16] MEDS: WARFARIN SOD 5 MG TAB PO SCH (15:09)
[2016-11-16] MEDS: cefTRIAXone INJ 2,000 MG in SODIUM CHLORIDE 0.9% INJ 100 ML IV SCH (17:25)
--- NOTE | 2016-11-16 22:57 | RADRPT ---
EXAM DATE/TIME: 11/16/2016 22:27 [facility] COMPARISON: CHEST SINGLE AP, November 15, 2016, 8:03. INDICATIONS : Status post chest tube removal. MEDICAL HISTORY : Stroke. Congestive heart failure. Chronic obstructive pulmonary disease. SURGICAL HISTORY : None. ENCOUNTER: Subsequent ACUITY: 1 day PAIN SCORE: Non-responsive. LOCATION: chest FINDINGS: A single portable frontal view of the chest shows removal of the small caliber right thoracostomy tub e. Central line, endotracheal tube, and nasogastric tube remain. There has been enlargement of the ri ght pleural effusion since the chest tube removal. No pneumothorax. Left pleural effusion is slightly larger. Bibasilar intraalveolar opacities remain stable. Heart remains enlarged. CONCLUSION: 1. Some enlargement of the right pleural effusion following chest tube removal. No pneumothorax. 2. Slight enlargement of left pleural effusion. 3. Unchanged cardiomegaly and bilateral infiltrates. Charbel Fuchs Jr., MD on November 16, 2016 at 22:52 Board Certified Radiologist. This report was verified electronically.
[2016-11-17] VITALS (18 sets, daily range): BP systolic 116–179; BP diastolic 55–84; PULSE 58–92; RESP 22–31; TEMP 97.3–99; O2SAT 94–100
[2016-11-17] MEDS: DEXMEDETOMIDINE INJ 50 ML IV SCH ×5 (02:49→20:03)
[2016-11-17] MEDS: RESP: ALBUTEROL 2.5 MG/IPRATROPIUM 0.5 MG NEB (SCH) INH ×6 (03:26→23:34)
--- NOTE | 2016-11-17 04:27 | RADRPT ---
EXAM DATE/TIME: 11/17/2016 03:05 [facility] COMPARISON: CHEST SINGLE AP, November 16, 2016, 22:27. INDICATIONS : Shortness of breath, possible pulmonary disease. MEDICAL HISTORY : Stroke. Congestive heart failure. Chronic obstructive pulmonary disease. SURGICAL HISTORY : None. ENCOUNTER: Subsequent ACUITY: 2 weeks PAIN SCORE: Non-responsive. LOCATION: Bilateral chest FINDINGS: Single portable frontal view the chest shows no significant change. Bilateral pulmonary infiltrates l eft larger than right and small effusions are unchanged. Heart remains enlarged. Tip of the endotrach eal tube 1 cm cephalad to the laura. Nasogastric tube courses off the inferior margin film. CONCLUSION: Unchanged cardiomegaly, bilateral pleural effusions, and bilateral pulmonary infiltrates. Charbel Fuchs Jr., MD on November 17, 2016 at 4:24 Board Certified Radiologist. This report was verified electronically.
[2016-11-17 05:15] LABS: AUTOMATED NEUTROPHIL # 7.1 TH/MM3 (1.8-7.7); BASOPHIL % 0.1 % (0.0-2.0); EOSINOPHIL # 0.1 TH/MM3 (0-0.4); EOSINOPHIL % 1.3 % (0.0-4.0); HEMATOCRIT 32.5 % (39.0-51.0); HEMO FLAGS DIFF FINAL; LYMPH % 11.3 % (9.0-44.0); MEAN CORPUSCULAR HEMOGLOBIN 33.2 PG (27.0-34.0); MEAN CORPUSCULAR HGB CONC 33.8 % (32.0-36.0); MONO % 8.6 % (0.0-8.0); NEUT % 78.7 % (16.0-70.0); PLATELET COUNT 116 TH/MM3 (150-450); RED BLOOD COUNT 3.32 MIL/MM3 (4.50-5.90); RED CELL DISTRIBUTION WIDTH 15.1 % (11.6-17.2)
[2016-11-17 05:16] LABS: INTERNATIONAL NORMALIZED RATIO 1.7 RATIO; PROTHROMBIN TIME - PATIENT 19.8 SEC (9.8-11.6)
[2016-11-17 05:24] LABS: ALKALINE PHOSPHATASE 164 U/L (45-117); ALT (GPT) 140 U/L (12-78); ANION GAP 6 MEQ/L (5-15); AST (GOT) 120 U/L (15-37); BICARBONATE 30.8 MEQ/L (21.0-32.0); BLOOD UREA NITROGEN 23 MG/DL (7-18); CHLORIDE 109 MEQ/L (98-107); GLOMERULAR FILTRATION RATE 143 ML/MIN (>89); MAGNESIUM 2.1 MG/DL (1.5-2.5); POTASSIUM 3.9 MEQ/L (3.5-5.1); SODIUM (NA) 146 MEQ/L (136-145); TOTAL BILIRUBIN ADULT 0.5 MG/DL (0.2-1.0)
[2016-11-17] MEDS: INSULIN NovoLIN REGULAR SUPPLEMENTAL SCALE SQ SCH ×3 (05:53→17:57)
[2016-11-17] MEDS: ATENOLOL 50 MG TAB PO SCH ×2 (07:44→20:03)
[2016-11-17] MEDS: CAPTOPRIL 50 MG TAB PO SCH ×3 (07:44→17:56)
[2016-11-17] MEDS: CHLORHEXIDINE 0.12% (ORAL KIT) 15 ML CUP MT SCH ×2 (07:44→20:00)
[2016-11-17] MEDS: SODIUM CHLORIDE 0.9% FLUSH 5 ML FLUSH FLUSH SCH ×2 (07:45→20:02)
[2016-11-17] MEDS: PHENYTOIN INJ 100 MG/2 ML VIAL IV PUSH SCH ×2 (07:45→17:56)
[2016-11-17] MEDS: methylPREDNISolone SOD SUCC 40 MG/1 ML VIAL IV PUSH SCH ×2 (07:45→20:03)
[2016-11-17] MEDS: SODIUM CHLORIDE 0.9% FLUSH 5 ML FLUSH IVF SCH ×2 (07:46→09:00)
--- NOTE | 2016-11-17 08:38 | HHI.CCPN ---
Subjective Remarks/Hospital Course This is an 81-year-old male who has had multiple readmissions over the past few months for a recurrent right-sided pleural effusion. He represents from his long term facility with recurrent right-sided pleural effusion as well as hypoxia and somnolence. He was found to have significant hypercarbia and a PCO2 in the 90s. He was initially placed on BiPAP and admitted to the [facility]. He became more somnolent and his oxygen saturation began to decline. At this point a critical care medicine is consulted to evaluate and manage his hypercarbic respiratory failure. Because he is failed his trial of noninvasive positive pressure ventilation, we will move towards intubating the patient. I evaluated the patient and he is essentially unresponsive and obtunded and only minimally withdrawing to pain. I can obtain no additional history from the patient. Subjective: 11/09: Early this a.m. at approximately 06:30 the patient was noted to have a grand mal seizure lasting approximately 60 seconds followed by a small tonic- clonic seizure lasting 30 seconds involving the lower extremities. The patient received Ativan 2 mg with cessation of seizure activity. Stat CT of the brain without contrast was obtained showed no acute abnormality. EEG was obtained previously awaiting results. Prior to the event the patient was noted to be on a fentanyl infusion at approximately 250 mcg/h. The patient was noted to be a GCS 10T, squeezing my hand. 11/10: The patient was noted to have multiple seizures requiring interventions with IV Ativan. Described as tonic-clonic in nature with eyes rolled back in the head. Gross motor movement shaking 4 extremities. Today the patient was noted to have a positive growth and blood cultures. WBC count elevated. Ammonia level was drawn less than 10, lactate was noted to be 2.2 this morning. Pleural fluid culture negative growth to date. 11/11: On stimulation patient continues to have jerking movement of all extremities. EEG negative for seizures. Check MRI today. Dr. Kirkland is neurology. Remains on 2 mcg/min of Levophed 11/12: Per neurologist, patient had witnessed with tonic convulsions started over right arm and propagated to left UE and both LE with fluttering of the eyes and upward gaze.Loaded with Dilantin iv infusion and a maintenance dose of 100mg Q8h, Stat EEG negative for seizures. Its unclear to me whether it is seizure or myoclonus 11/13: No change in neuro status. Continues to have jerking movements off lower extremity when stimulated. EEG 2 have been negative for seizures. We'll hold sedation for neuro exam 11/14: On sedation hold opens eyes. Appears to follow commands and upper extremity. Still has some tremulousness of the extremities. Remains off pressors 11/15: Remains on Precedex intermittently following commands for RN. Placed on CPAP tolerating well. No evidence of myoclonus now 11/16: On 1.1 mcg/kg/hr of Precedex. No spontaneous eye opening but moves all extremities spontaneously. Not following commands will reduce Precedex, and start weaning trials 11/17: Mental status significantly improved patient following commands on Precedex. However chest tube was dislodged yesterday evening, now has bilateral pleural effusions left is more than right, appears large. Vent day 10 Objective Vital Signs Date Time Temp Pulse Resp B/P Pulse Ox O2 Delivery O2 Flow Rate FiO2 11/17/16 07:34 40 11/17/16 07:34 96 11/17/16 04:00 99.0 58 22 142/66 Intake and Output 11/16/16 11/16/16 11/17/16 08:00 16:00 00:00 Intake Total 571 ml 756 ml 865 ml Output Total 500 ml 480 ml 600 ml Balance 71 ml 276 ml 265 ml Result Diagram: 11/17/16 0430 11/17/16 0430 Imaging Last [address] 11/07/161955 Signed Impressions: Service Date/Time: October 20:38 - CONCLUSION: No acute intracranial abnormality demonstrated. Chronic white matter and old ischemic changes. Dhruv Foster MD Chest X-Ray 11/07/161955 Signed Impressions: Service Date/Time: October 20:54 - CONCLUSION: Worsening bilateral airspace disease and pleural effusions. Dhruv Foster MD Objective Remarks GENERAL: This is a elderly critically ill-appearing cachectic male, intubated and sedated with Precedex HEENT: Normocephalic. Atraumatic. Pupils equal, round, reactive. NECK: Trachea is midline. No JVD. Orotracheally intubated CHEST: Right sided chest tube dislodged 11/16/16. Distant breath sounds. Air entry diminished bilaterally CARDIOVASCULAR: Normal rate, regular rhythm. No appreciable murmurs. ABDOMEN: After, nontender, nondistended. No guarding. MUSCULOSKELETAL: 1+ peripheral edema. Distal pulses 2+ NEUROLOGICAL: Opens eyes follows commands bilateral upper extremity. Moves all extremities spontaneously. On 0.5 g per KG per hour of Precedex Date of Insertion: Nov 08, 2016 Side: Right Location: Internal, Jugular A/P Assessment and Plan Assessment: This is an 81-year-old male with history of prior recurrent right pleural effusions and COPD now presents with acute hypercarbic and hypoxic respiratory failure which has failed noninvasive positive pressure ventilation. Intubated and placed on mechanical ventilation. Covering COPD exacerbation, as well as healthcare associated pneumonia given his history of being on Levaquin at his long term facility. He remains critically ill. I am not sure that we will be able to get him through this hospitalization, and his recurrent respiratory failures are clearly making him more deconditioned every time he comes in the hospital. Despite this, his daughter continues to progress for aggressive measures. Plan by systems: Neurologic: Myoclonus-resolved CO2 narcosis Metabolic encephalopathy Mild dementia -Currently on Precedex infusion for Vent synchrony and to facilitate ventilator weaning -Ativan PRN for breakthrough seizures -EEG negative 11/10/15, 11/11/16 (moderate to severe encephalopathy, no seizure) -11/08 CT of the brain-no acute abnormality. 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 Also question of amyloid -Neurology impression-probable anoxic injury. -Neurological exam continues to improve, today following commands bilateral UE Respiratory: Acute hypercarbic and hypoxic respiratory failure Recurrent right pleural effusion s/p chest tube placement-dilsodged 11/17 Right pneumothorax-resolved Left more than right bilateral pleural effusions Possible healthcare associated pneumonia COPD exacerbation Methylprednisolone 40 q12 DuoNeb every 4 and every 2 when necessary --Pulmonary Dr. Valenzuela, patient will need pleurodesis prior to removal of chest tube Head of bed at 30, Vent bundle Wean FiO2 for goal SPO2 greater than 90% Daily SBT, mental status improving. Vent day 10 -possible extubation if he passes SBT, after drainage of effusions (L>R) 11/08 S/P CT guided IR drainage of recurrent right posterior pleural effusion, unable to perform pleurodesis, maintain 40cm of suction to pleuravac Antibiotics as described below Cardiovascular: Severe pulmonary hypertension A. fib RVR Hypertension Maintain map greater than 60-65 Resumed home antihypertensives (captopril and atenolol 11/14/16) --Monitor CVP Renal: Maintain Vital for accurate --Strict I/Os FEN/GI: Acute intravascular volume overload Acute protein calorie malnutritionsevere Metabolic alkalosis Continue tube feeds, Jevity 1.5 goal rate 60 cc/hour-hold for possible extubation ICU electrolyte protocol Lasix and Diamox discontinued --Give Bumex 2 mg IV x1 11/17, start scheduled Bumex 1 mg IV every 12 11/17 Heme/ID: Possible healthcare associated pneumonia, staph aureus in sputum Leukocytosis CBC CMP today - ID consulted by Dr. Gaspar. Dr. Topete following Does not meet transfusion triggers at this time Currently on ceftriaxone 2 g IV every 24 hours per ID (Vanc and cefepime DCd ) 11/08 blood -micrococcus 08/28 possible contaminant - Urine cultures-NGTD --Sputum cx 11/12/16 with staph aureus Endocrine: Hyperglycemia of critical illness -- SSI, medium scale, every 6 hours Prophylaxis: GI Prophylaxis Protonix 40 mg IV every 24 hours DVT Prophylaxis -- SCDs Patient on Coumadin, INR subtherapeutic therapeutic pharmacy following for Coumadin dosing-hold today for possible thoracentesis/chest tube placement Lines: Peripheral IVsx 2. central line Vital Dispo: Discussed medical update with daughter who desires aggressive treatment at this time. spoke with MANOMETER TECHNICIAN at bedside. palliative care following This patient remains critically ill with one or more organ systems which are or may become a threat to life. I have spent in excess of 32 minutes discontinuously in the care and management of this patient. This time is exclusive of procedures, and includes, but is not limited to, evaluation of the patient, review of the medical record, discussions with family, consultants, nursing staff, or respiratory therapy, and documentation in the medical record. Rebecca Bartlett MD Nov 17, 2016 08:38
[2016-11-17] MEDS: POTASSIUM CHLORIDE 20 MEQ PWD PACKET NG SCH ×2 (09:00→20:03)
[2016-11-17] MEDS ORDERED: BUMETANIDE INJ 1 MG/4 ML VIAL IV PUSH ONE (09:00)
[2016-11-17] MEDS ORDERED: MORPHINE SULFATE 8 MG/ML INJ ONE (10:50)
[2016-11-17] MEDS ORDERED: ROCURONIUM INJ 50 MG/5 ML VIAL ONE (11:13)
--- NOTE | 2016-11-17 11:25 | PD.PROCEDR ---
Procedure Note Procedure Procedure- US guided Left thoracentesis Informed consent was obtained and time out performed. Thoracentesis site on the left was marked with ultrasound. Full barrier and sterile precautions were used. Skin and subcutaneous tissue anesthetized with 1% lidocaine. A small skin bishop was made with scalpel. Thoracentesis Angiocath was introduced into the pleural fluid and needle was removed. 50 ml Specimen was collected for lab studies. Angiocath was then connected via tubing to Vacutainer. A total of 1250 mL of brownish cloudy (appearing like old blood) pleural fluid was removed. Patient tolerated procedure well. Further lab work ordered. Rebecca Bartlett MD Nov 17, 2016 11:25
--- NOTE | 2016-11-17 12:20 | RADRPT ---
EXAM DATE/TIME: 11/17/2016 11:20 [facility] COMPARISON: CHEST SINGLE AP, November 17, 2016, 3:05. INDICATIONS : Status post thoracocentesis. MEDICAL HISTORY : Stroke. Congestive heart failure. Chronic obstructive pulmonary disease. SURGICAL HISTORY : None. ENCOUNTER: Subsequent ACUITY: 2 weeks PAIN SCORE: Non-responsive. LOCATION: Non-responsive. FINDINGS: Single portable semiupright view of the chest was performed. The patient is moderately angulated. The re is an endotracheal tube seen with the tip at the level of the clavicles, stable. Nasogastric tube seen with the proximal port not well-visualized. This projects over the stomach. There is significant cardiomegaly present, stable. There is improved aeration of the left hemithorax with persistent left basilar airspace consolidation or some atelectasis. There is a small right-sided pleural effusion present and right basilar airspace consolidation. Given the differences in projecti on this is likely stable from prior exam. CONCLUSION: Given the differences in patient positioning the exam appears slightly improved with respect to the l eft hemithorax. Stable right pleural effusion and basilar airspace consolidation. Stable left lower l obe atelectasis versus consolidation. Brunilda Arthur MD on November 17, 2016 at 12:16 Board Certified Radiologist. This report was verified electronically.
[2016-11-17 13:21] LABS: PLEURAL FLUID PH 8.5
--- NOTE | 2016-11-17 13:26 | HHI.PR ---
Subjective Remarks Had a left thoracentesis with removal of 1200 CC . On the vent and sedated, with FIO2 40%. Tolerated CPAP today Objective Vital Signs Date Time Temp Pulse Resp B/P Pulse Ox O2 Delivery O2 Flow Rate FiO2 11/17/16 12:00 69 11/17/16 11:41 100 40 11/17/16 10:00 65 11/17/16 08:00 62 11/17/16 07:34 40 11/17/16 07:34 96 40 11/17/16 07:30 97 40 11/17/16 04:03 96 40 11/17/16 04:00 40 11/17/16 04:00 99.0 58 22 142/66 94 11/17/16 01:02 97 40 11/17/16 00:00 98.4 60 22 124/58 95 11/17/16 00:00 40 11/16/16 22:02 95 40 11/16/16 20:00 98.8 67 22 155/66 97 11/16/16 20:00 40 11/16/16 19:18 96 40 11/16/16 18:00 66 11/16/16 16:00 75 11/16/16 16:00 98.3 79 22 144/67 96 11/16/16 16:00 40 11/16/16 15:32 96 40 11/16/16 14:00 75 I/O 11/16/16 11/16/16 11/16/16 11/17/16 11/17/16 11/17/16 07:00 15:00 23:00 07:00 15:00 23:00 Intake Total 571 ml 756 ml 865 ml 600 ml Output Total 500 ml 480 ml 600 ml 350 ml Balance 71 ml 276 ml 265 ml 250 ml Intake Oral 0 ml 0 ml IV Total 221 ml 197 ml 390 ml 230 ml Tube Feeding 350 ml 319 ml 415 ml 310 ml Other 240 ml 60 ml 60 ml Output Urine Total 350 ml 450 ml 600 ml 350 ml Chest Tube Drainage Total 150 ml 30 ml # Bowel Movements 0 1 1 0 Result Diagram: 11/17/1642911/17/16429 Objective Remarks GENERAL: Elderly male intubated and sedated. He is restless, and sedated. HEENT: Pupils are equal and react to light. Oral mucosa, nasal mucosa normal. He is orally intubated. NECK: Supple. JVP not raised. CHEST: Occ rales at the bases,and wheeze. CARDIOVASCULAR: S1, S2 normal. ABDOMEN: Benign.No mass. EXTREMITIES: No edema. Neuro,sedated. Assessment and Plan Assessment and Plan IMPRESSION 1. Ventilator dependent respiratory failure. 2. Pleural effusions status post chest tube placement. 3. Congestive heart failure. 4. Atrial fibrillation. Plan : 1. Cont Vent support and do CPAP trial today. 2. Nebs qid , duoneb. 3. Continue diuretics. 4. Rocephin , 1 G IV daily. 5. CXR ,BMP in am. Paulo Rooney MD Nov 17, 2016 13:26
[2016-11-17 13:45] LABS: TOTAL PROTEIN,PLEURAL FLUID 1.9 GM/DL
[2016-11-17 13:48] LABS: PLEURAL FLUID LYMPHS 32 %
[2016-11-17] MEDS: WARFARIN SOD 5 MG TAB PO SCH (15:30)
[2016-11-17] MEDS: BUMETANIDE INJ 1 MG/4 ML VIAL IV PUSH SCH (17:56)
[2016-11-17] MEDS: cefTRIAXone INJ 2,000 MG in SODIUM CHLORIDE 0.9% INJ 100 ML IV SCH (17:57)
--- NOTE | 2016-11-17 18:01 | RADRPT ---
EXAM DATE/TIME: 11/17/2016 15:58 [facility] COMPARISON: No previous studies available for comparison. INDICATIONS : Increased lab values. MEDICAL HISTORY : Hypercholesterolemia. Hypertension. Chronic obstructive pulmonary disease. Hearing loss. Cerebrovascu lar accident. Congestive heart failure. Anticoagulant therapy, Warfarin. Afib. Skin cancer. SURGICAL HISTORY : Right knee surgery. Thoracentesis. ENCOUNTER: Initial ACUITY: 1 day PAIN SCORE: Nonresponsive. LOCATION: Abdomen. MEASUREMENTS: LIVER: 15.8 cm length COMMON DUCT: 4 mm RIGHT KIDNEY: 11.6 x 5.1 x 5.6 cm SPLEEN: 11.7 cm length FINDINGS: Mildly increased liver echogenicity. Trace free fluid. Pancreas, gallbladder and spleen unremarkable. There is mild gallbladder wall thickening and trace pericholecystic fluid. No biliary ductal dilatati on. 2 cm right renal cyst. No hydronephrosis on the right. Incidental note made of left pleural effus ion. Spleen demonstrates no focal abnormality. CONCLUSION: 1. Increased liver echogenicity characteristic of mild fatty infiltration or hepatocellular disease. 2. Trace free fluid in the abdomen. Pleural effusions. Mild gallbladder wall thickening. Chaka Campos MD on November 17, 2016 at 17:56 Board Certified Radiologist. This report was verified electronically.
[2016-11-18] VITALS (17 sets, daily range): BP systolic 97–170; BP diastolic 51–88; PULSE 61–91; RESP 20–39; TEMP 97–99.1; O2SAT 93–97
[2016-11-18] MEDS: DEXMEDETOMIDINE INJ 50 ML IV SCH ×5 (00:03→20:13)
[2016-11-18] MEDS: PHENYTOIN INJ 100 MG/2 ML VIAL IV PUSH SCH ×3 (01:54→15:56)
[2016-11-18] MEDS: RESP: ALBUTEROL 2.5 MG/IPRATROPIUM 0.5 MG NEB (SCH) INH ×5 (03:48→23:52)
[2016-11-18 05:10] LABS: INTERNATIONAL NORMALIZED RATIO 1.6 RATIO; PROTHROMBIN TIME - PATIENT 18.1 SEC (9.8-11.6)
[2016-11-18] MEDS: INSULIN NovoLIN REGULAR SUPPLEMENTAL SCALE SQ SCH ×4 (05:58→17:52)
[2016-11-18 08:01] LABS: BLOOD GAS BASE EXCESS 2.5 mmol/L (-2-2); BLOOD GAS CARBOXYHEMOGLOBIN 1.4 % (0-4); BLOOD GAS HCO3 27 mmol/L (22-26); BLOOD GAS METHEMOGLOBIN 0.9 % (0-2); BLOOD GAS O2 HGB SATURATION 97 % (90-100); BLOOD GAS OXYGEN CONTENT 15.2 Vol % (12.0-20.0); BLOOD GAS PCO2 43 mmHg (38-42); BLOOD GAS PO2 140 mmHg (61-120); CRITICAL VALUE NO; DRAW SITE RT RADIAL; FIO2 45 %; NUMBER OF ARTERIAL PUNCTURES 1; OXYGEN DEVICE VENTILATOR; STAT NO; TEMP CORR TO 98.6; ULNAR PULSE PRESENT; VENT SETTINGS CPAP 5/8PS
--- NOTE | 2016-11-18 08:02 | HHI.CCPN ---
Subjective Remarks/Hospital Course This is an 81-year-old male who has had multiple readmissions over the past few months for a recurrent right-sided pleural effusion. He represents from his longterm facility with recurrent right-sided pleural effusion as well as hypoxia and somnolence. He was found to have significant hypercarbia and a PCO2 in the 90s. He was initially placed on BiPAP and admitted to the [facility]. He became more somnolent and his oxygen saturation began to decline. At this point a critical care medicine is consulted to evaluate and manage his hypercarbic respiratory failure. Because he is failed his trial of noninvasive positive pressure ventilation, we will move towards intubating the patient. I evaluated the patient and he is essentially unresponsive and obtunded and only minimally withdrawing to pain. I can obtain no additional history from the patient. Subjective: 11/09: Early this a.m. at approximately 06:30 the patient was noted to have a grand mal seizure lasting approximately 60 seconds followed by a small tonic- clonic seizure lasting 30 seconds involving the lower extremities. The patient received Ativan 2 mg with cessation of seizure activity. Stat CT of the brain without contrast was obtained showed no acute abnormality. EEG was obtained previously awaiting results. Prior to the event the patient was noted to be on a fentanyl infusion at approximately 250 mcg/h. The patient was noted to be a GCS 10T, squeezing my hand. 11/10: The patient was noted to have multiple seizures requiring interventions with IV Ativan. Described as tonic-clonic in nature with eyes rolled back in the head. Gross motor movement shaking 4 extremities. Today the patient was noted to have a positive growth and blood cultures. WBC count elevated. Ammonia level was drawn less than 10, lactate was noted to be 2.2 this morning. Pleural fluid culture negative growth to date. 11/11: On stimulation patient continues to have jerking movement of all extremities. EEG negative for seizures. Check MRI today. Dr. Kirkland is neurology. Remains on 2 mcg/min of Levophed 11/12: Per neurologist, patient had witnessed with tonic convulsions started over right arm and propagated to left UE and both LE with fluttering of the eyes and upward gaze.Loaded with Dilantin iv infusion and a maintenance dose of 100mg Q8h, Stat EEG negative for seizures. Its unclear to me whether it is seizure or myoclonus 11/13: No change in neuro status. Continues to have jerking movements off lower extremity when stimulated. EEG 2 have been negative for seizures. We'll hold sedation for neuro exam 11/14: On sedation hold opens eyes. Appears to follow commands and upper extremity. Still has some tremulousness of the extremities. Remains off pressors 11/15: Remains on Precedex intermittently following commands for RN. Placed on CPAP tolerating well. No evidence of myoclonus now 11/16: On 1.1 mcg/kg/hr of Precedex. No spontaneous eye opening but moves all extremities spontaneously. Not following commands will reduce Precedex, and start weaning trials 11/17: Mental status significantly improved patient following commands on Precedex. However chest tube was dislodged yesterday evening, now has bilateral pleural effusions left is more than right, appears large. Vent day 10 11/18: Off Precedex following commands upper extremities. But continues to fail C Pap trials due to tachypnea and low tidal volumes. Status post large-volume left thoracentesis yesterday with 1.2 L of old blood-tinged fluid removed. Objective Vital Signs Date Time Temp Pulse Resp B/P Pulse Ox O2 Delivery O2 Flow Rate FiO2 11/18/16 07:37 97 45 11/18/16 06:00 61 11/18/16 04:00 98.8 22 97/51 Intake and Output 11/17/16 11/17/16 11/18/16 08:00 16:00 00:00 Intake Total 600 ml 696 ml 849 ml Output Total 350 ml 1800 ml 650 ml Balance 250 ml -1104 ml 199 ml Result Diagram: 11/17/16 0430 11/17/16 0430 Imaging Last [address] 11/07/161955 Signed Impressions: Service Date/Time: October 20:38 - CONCLUSION: No acute intracranial abnormality demonstrated. Chronic white matter and old ischemic changes. Dhruv Foster MD Chest X-Ray 11/07/161955 Signed Impressions: Service Date/Time: October 20:54 - CONCLUSION: Worsening bilateral airspace disease and pleural effusions. Dhruv Foster MD Objective Remarks GENERAL: This is a elderly critically ill-appearing cachectic male, intubated off sedation today HEENT: Normocephalic. Atraumatic. Pupils equal, round, reactive. NECK: Trachea is midline. No JVD. Orotracheally intubated CHEST: Right sided chest tube dislodged 11/16/16. Distant breath sounds. Air entry diminished bilaterally CARDIOVASCULAR: Normal rate, regular rhythm. No appreciable murmurs. ABDOMEN: After, nontender, nondistended. No guarding. MUSCULOSKELETAL: 1+ peripheral edema. Distal pulses 2+ NEUROLOGICAL: Opens eyes follows commands bilateral upper extremity. Moves all extremities spontaneously. Precedex on hold Date of Insertion: Nov 08, 2016 Side: Right Location: Internal, Jugular A/P Assessment and Plan Assessment: This is an 81-year-old male with history of prior recurrent right pleural effusions and COPD now presents with acute hypercarbic and hypoxic respiratory failure which has failed noninvasive positive pressure ventilation. Intubated and placed on mechanical ventilation. Covering COPD exacerbation, as well as healthcare associated pneumonia given his history of being on Levaquin at his longterm facility. He remains critically ill. Not sure that we will be able to get him through this hospitalization, and his recurrent respiratory failures are clearly making him more deconditioned every time he comes in the hospital. Despite this, his daughter continues to progress for aggressive measures. Tentatively planning for tracheostomy tomorrow 11/19/16 Plan by systems: Neurologic: Myoclonus-resolved CO2 narcosis Metabolic encephalopathy Mild dementia -Currently on Precedex infusion for Vent synchrony and to facilitate ventilator weaning -Ativan PRN for breakthrough seizures -EEG negative 11/10/15, 11/11/16 (moderate to severe encephalopathy, no seizure) -11/08 CT of the brain-no acute abnormality. 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 Question of amyloid -Neurology impression-probable anoxic injury. -Neurological exam continues to improve, following commands bilateral UE Respiratory: Acute hypercarbic and hypoxic respiratory failure Recurrent right pleural effusion s/p chest tube placement-dilsodged 11/17 Right pneumothorax-resolved Large hemorrhagic left pleural effusion status post thoracentesis 11/17/16 Healthcare associated pneumonia COPD exacerbation Methylprednisolone 40 q12 DuoNeb every 8 and every 2 when necessary --Pulmonary Dr. Valenzuela, patient will need pleurodesis prior to removal of chest tube Head of bed at 30, Vent bundle Wean FiO2 for goal SPO2 greater than 90% Daily SBT, mental status improving. Vent day 11 -possible trial extubation if he passes SBT, high possibility of failure due to deconditioning --Status post left thoracentesis 11/17/16 with 1.2 L of hemorrhagic fluid removed 11/08 S/P CT guided IR drainage of recurrent right posterior pleural effusion, unable to perform pleurodesis, maintain 40cm of suction to pleuravac Antibiotics as described below Cardiovascular: Severe pulmonary hypertension A. fib RVR Hypertension Maintain map greater than 60-65 Resumed home antihypertensives (captopril and atenolol 11/14/16) --Monitor CVP Renal: Maintain Vital for accurate --Strict I/Os FEN/GI: Acute intravascular volume overload Acute protein calorie malnutritionsevere Metabolic alkalosis Continue tube feeds, Jevity 1.5 goal rate 60 cc/hour-hold for possible extubation ICU electrolyte protocol --Bumex 2 mg IV x1 11/17, started scheduled Bumex 1 mg IV every 12 11/17 Heme/ID: Possible healthcare associated pneumonia, staph aureus in sputum Leukocytosis CBC CMP today - ID consulted by Dr. Gaspar. Dr. Topete following Does not meet transfusion triggers at this time Currently on ceftriaxone 2 g IV every 24 hours per ID (Vanc and cefepime DCd ) 11/08 blood -micrococcus 08/28 possible contaminant - Urine cultures-NGTD --Sputum cx 11/12/16 with staph aureus Endocrine: Hyperglycemia of critical illness -- SSI, medium scale, every 6 hours Prophylaxis: GI Prophylaxis Protonix 40 mg IV every 24 hours DVT Prophylaxis --SCDs Patient on Coumadin, INR subtherapeutic therapeutic pharmacy following for Coumadin dosing-holding for trach/PEG. Will start IV Heparin after and transition to Coumadin after procedures Lines: Peripheral IVsx 2. central line Vital Dispo: Discussed medical update with daughter who desires aggressive treatment at this time. spoke with EXPERIMENTAL TECHNICIAN at bedside. palliative care following This patient remains critically ill with one or more organ systems which are or may become a threat to life. I have spent in excess of 32 minutes discontinuously in the care and management of this patient. This time is exclusive of procedures, and includes, but is not limited to, evaluation of the patient, review of the medical record, discussions with family, consultants, nursing staff, or respiratory therapy, and documentation in the medical record. Updated daughter at bedside on 11/17/16. She wants to continue aggressive care and proceed with tracheostomy and PEG tube if unable to wean Rebecca Bartlett MD Nov 18, 2016 08:02
[2016-11-18] MEDS: SODIUM CHLORIDE 0.9% FLUSH 5 ML FLUSH FLUSH SCH ×2 (08:39→20:11)
[2016-11-18] MEDS: CHLORHEXIDINE 0.12% (ORAL KIT) 15 ML CUP MT SCH ×2 (08:39→20:00)
[2016-11-18] MEDS: methylPREDNISolone SOD SUCC 40 MG/1 ML VIAL IV PUSH SCH ×2 (08:39→20:11)
[2016-11-18] MEDS: POTASSIUM CHLORIDE 20 MEQ PWD PACKET NG SCH ×2 (08:40→20:12)
[2016-11-18] MEDS: ATENOLOL 50 MG TAB PO SCH ×2 (08:40→20:12)
[2016-11-18] MEDS: CAPTOPRIL 50 MG TAB PO SCH ×3 (08:40→16:07)
[2016-11-18] MEDS: BUMETANIDE INJ 1 MG/4 ML VIAL IV PUSH SCH (08:40)
--- NOTE | 2016-11-18 09:40 | RADRPT ---
EXAM DATE/TIME: 11/18/2016 08:21 [facility] COMPARISON: CHEST SINGLE AP, November 17, 2016, 11:20. INDICATIONS : Short of Breath MEDICAL HISTORY : Hypercholesterolemia. Hypertension. Chronic obstructive pulmonary disease. Hear ing loss. Cerebrovascular accident. Congestive heart failure. Anticoagulant therapy, Warfarin. A-fib. Skin cancer SURGICAL HISTORY : Right knee surgery. Thoracentesis ENCOUNTER: Subsequent ACUITY: 2 weeks PAIN SCORE: Non-responsive. LOCATION: Bilateral chest FINDINGS: There has been slow continuous improvement. Support apparatus in good position. Heart remains enlarge d. Minimal bibasilar parenchymal changes are noted worse on the right than the left. The large apparent effusion on the right has all but resolved. CONCLUSION: Interval improvement. Kun Mendoza MD FACR on November 18, 2016 at 9:33 Board Certified Radiologist. This report was verified electronically.
[2016-11-18] MEDS ORDERED: MORPHINE SULFATE 4 MG/ML INJ IV PUSH ONE (10:00)
--- NOTE | 2016-11-18 11:38 | HHI.IDPN ---
Subjective Subjective Remarks pt is now extubated no fever trying to talk but appears confused, speech incoherent Status post large-volume left thoracentesis yesterday with 1.2 L of old blood- tinged fluid removed.; clx P; Gstain negative Antibiotics CFTX Allergies: Coded Allergies: No Known Allergies (Verified , 11/07/16) Objective . Vital Signs Date Time Temp Pulse Resp B/P Pulse Ox O2 Delivery O2 Flow Rate FiO2 11/18/16 10:00 71 11/18/16 09:59 96 Nasal Cannula 4 11/18/16 09:59 96 Nasal Cannula 4.00 11/18/16 08:00 98.7 84 30 148/65 95 Arterial Line 11/18/16 08:00 84 11/18/16 07:37 97 45 11/18/16 06:00 61 11/18/16 04:00 98.8 62 22 97/51 94 11/18/16 04:00 40 11/18/16 04:00 62 11/18/16 03:55 96 40 11/18/16 02:00 69 11/18/16 01:15 95 40 11/18/16 00:00 69 11/18/16 00:00 40 11/18/16 00:00 99.1 69 22 139/65 93 11/17/16 22:03 97 40 11/17/16 22:00 69 11/17/16 20:00 40 11/17/16 20:00 98.0 92 22 179/84 98 11/17/16 19:10 94 40 11/17/16 18:00 88 11/17/16 16:00 97.9 87 24 117/56 96 11/17/16 16:00 40 11/17/16 16:00 98 40 11/17/16 16:00 87 11/17/16 14:34 97 40 11/17/16 14:00 74 11/17/16 12:00 98.1 69 28 116/55 95 11/17/16 12:00 69 11/17/16 12:00 40 11/17/16 11:41 100 40 11/17/16 11/17/16 11/18/16 15:00 23:00 07:00 Intake Total 696 ml 849 ml 623 ml Output Total 1800 ml 650 ml 450 ml Balance -1104 ml 199 ml 173 ml Intake Oral 0 ml 0 ml IV Total 603 ml 238 ml Tube Feeding 240 ml 186 ml 325 ml FFP 356 ml Other 100 ml 60 ml 60 ml Output Urine Total 1800 ml 650 ml 450 ml # Bowel Movements 1 0 0 . Laboratory Tests Test 11/17/16 04:30 White Blood Count 9.0 TH/MM3 Red Blood Count 3.32 MIL/MM3 Hemoglobin 11.0 GM/DL Hematocrit 32.5 % Mean Corpuscular Volume 98.0 FL Mean Corpuscular Hemoglobin 33.2 PG Mean Corpuscular Hemoglobin 33.8 % Concent Red Cell Distribution Width 15.1 % Platelet Count 116 TH/MM3 Mean Platelet Volume 8.4 FL Neutrophils (%) (Auto) 78.7 % Lymphocytes (%) (Auto) 11.3 % Monocytes (%) (Auto) 8.6 % Eosinophils (%) (Auto) 1.3 % Basophils (%) (Auto) 0.1 % Neutrophils # (Auto) 7.1 TH/MM3 Lymphocytes # (Auto) 1.0 TH/MM3 Monocytes # (Auto) 0.8 TH/MM3 Eosinophils # (Auto) 0.1 TH/MM3 Basophils # (Auto) 0.0 TH/MM3 CBC Comment DIFF FINAL Differential Comment Laboratory Tests Test 11/17/16 11/17/16 04:30 17:45 Sodium Level 146 MEQ/L Potassium Level 3.9 MEQ/L Chloride Level 109 MEQ/L Carbon Dioxide Level 30.8 MEQ/L Anion Gap 6 MEQ/L Blood Urea Nitrogen 23 MG/DL Creatinine 0.55 MG/DL Estimat Glomerular Filtration 143 ML/MIN Rate Random Glucose 118 MG/DL Calcium Level 8.1 MG/DL Magnesium Level 2.1 MG/DL Total Bilirubin 0.5 MG/DL Aspartate Amino Transf 120 U/L (AST/SGOT) Alanine Aminotransferase 140 U/L (ALT/SGPT) Alkaline Phosphatase 164 U/L Total Protein 5.2 GM/DL Albumin 1.9 GM/DL Lactate Dehydrogenase 253 U/L Microbiology Date/Time Procedure Status Source Growth 11/17/16 11:30 Gram Stain - Final Resulted Fluid Pleural Fluid 11/17/16 11:30 Body Fluid Culture Resulted Fluid Pleural Fluid Pending 11/17/16 11:30 Acid Fast Stain Received Fluid Pleural Fluid Pending 11/17/16 11:30 Mycobacterial Culture Received Fluid Pleural Fluid Pending 11/17/16 11:30 Fungal Smear Received Fluid Pleural Fluid Pending 11/17/16 11:30 Fungal Culture Received Fluid Pleural Fluid Pending Imaging Last Impressions Chest X-Ray 11/17/16 0600 Signed Impressions: Service Date/Time: Thursday, November 17, 2016 03:05 - CONCLUSION: Unchanged cardiomegaly, bilateral pleural effusions, and bilateral pulmonary infiltrates. Charbel Fuchs Jr., MD Liver Ultrasound 11/17/16 0000 Signed Impressions: Service Date/Time: Thursday, November 17, 2016 15:58 - CONCLUSION: 1. Increased liver echogenicity characteristic of mild fatty infiltration or hepatocellular disease. 2. Trace free fluid in the abdomen. Pleural effusions. Mild gallbladder wall thickening. Chaka Campos MD Brain MRI 11/11/16 0000 Signed Impressions: Service Date/Time: Friday, November 11, 2016 12:53 - CONCLUSION: 1. 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 2. 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 The others would be consistent with punctate, remote areas of hemorrhage suggesting possibility of amyloid. Eitan Mendoza MD Head CT 11/09/16 0000 Signed Impressions: Service Date/Time: Wednesday, November 09, 2016 10:29 - CONCLUSION: Stable CT scan of the brain. Pradeep Rodriguez MD Chest Tube Insertion 11/08/16 0000 Signed Impressions: Service Date/Time: Tuesday, November 08, 2016 12:46 - CONCLUSION: Uncomplicated right chest tube placement as above. 1500 cc of fluid removed and sent for culture. Post CT scan reveals a large. pleural rind . The right lung may well not reexpanded. A.m. chest x-ray is pending. Cultures pending. Kun Mendoza MD FACR CT Angiography 11/07/16 0000 Signed Impressions: Service Date/Time: October 20:40 - CONCLUSION: 1. No pulmonary embolus. 2. Marked cardiac enlargement, especially the atria. 3. Bilateral effusions and atelectasis about the same on the left and considerably worse on the right. Right pneumothorax seen previously has resolved. Dhruv Foster MD Physical Exam CONSTITUTIONAL/GENERAL: This is an adequately nourished patient, in no apparent distress. Awake, alert SKIN: No jaundice, rashes, or lesions. CARDIOVASCULAR: Regular rate and rhythm without murmurs, gallops, or rubs. No JVD. Peripheral pulses symmetric. RESPIRATORY/CHEST: Symmetric, unlabored respirations. Clear to auscultation. Breath sounds equal bilaterally. No wheezes, rales, or rhonchi. GASTROINTESTINAL: Abdomen soft, non-tender, nondistended. No hepato-splenomegaly , or palpable masses. No guarding. Bowel sounds present. GENITOURINARY: Without palpable bladder distension. Vital catheter in place with clear yellow coloured urine MUSCULOSKELETAL: Extremities without clubbing, cyanosis, or edema. Chronic hyperpigmentation BLE NEUROLOGICAL:awkae, confused; sppeach is incoherent; moves all 4 extremeties PSYCHIATRIC: calm; cooperative Assessment & Plan Remarks Micrococcus bactermia, low grade doubt clin significance Recurrent R dside pleraul effusion, clx are negative suspected sz, neuro w/u in progress - EEG neg - MRI ? amiloidod=sis Low grade leukocytosis: resolved acute VDRF: resolved MSSA PNA Pleural effusion favouring non infected - complete CFTX monitor clicnially fu pleural fluid clx untikll final Hyun Topete MD Nov 18, 2016 11:38
--- NOTE | 2016-11-18 12:53 | HHI.PR ---
Subjective Remarks Had a left thoracentesis with removal of 1200 CC . Extubated now and anxious. Tolerated CPAP today Objective Vital Signs Date Time Temp Pulse Resp B/P Pulse Ox O2 Delivery O2 Flow Rate FiO2 11/18/16 12:00 89 11/18/16 12:00 97.4 89 22 170/88 94 11/18/16 10:00 71 11/18/16 09:59 96 Nasal Cannula 4 11/18/16 09:59 96 Nasal Cannula 4.00 11/18/16 08:00 98.7 84 30 148/65 95 Arterial Line 11/18/16 08:00 84 11/18/16 07:37 97 45 11/18/16 06:00 61 11/18/16 04:00 98.8 62 22 97/51 94 11/18/16 04:00 40 11/18/16 04:00 62 11/18/16 03:55 96 40 11/18/16 02:00 69 11/18/16 01:15 95 40 11/18/16 00:00 69 11/18/16 00:00 40 11/18/16 00:00 99.1 69 22 139/65 93 11/17/16 22:03 97 40 11/17/16 22:00 69 11/17/16 20:00 40 11/17/16 20:00 98.0 92 22 179/84 98 11/17/16 19:10 94 40 11/17/16 18:00 88 11/17/16 16:00 97.9 87 24 117/56 96 11/17/16 16:00 40 11/17/16 16:00 98 40 11/17/16 16:00 87 11/17/16 14:34 97 40 11/17/16 14:00 74 I/O 11/17/16 11/17/16 11/17/16 11/18/16 11/18/16 11/18/16 07:00 15:00 23:00 07:00 15:00 23:00 Intake Total 600 ml 696 ml 849 ml 623 ml Output Total 350 ml 1800 ml 650 ml 450 ml Balance 250 ml -1104 ml 199 ml 173 ml Intake Oral 0 ml 0 ml 0 ml IV Total 230 ml 603 ml 238 ml Tube Feeding 310 ml 240 ml 186 ml 325 ml FFP 356 ml Other 60 ml 100 ml 60 ml 60 ml Output Urine Total 350 ml 1800 ml 650 ml 450 ml # Bowel Movements 0 1 0 0 Result Diagram: 11/17/1642911/17/16429 Objective Remarks GENERAL: Elderly male awake and anxious . On o2 HEENT: Pupils are equal and react to light. Oral mucosa, nasal mucosa normal. NECK: Supple. JVP not raised. CHEST: Occ rales at the bases,and wheeze. CARDIOVASCULAR: S1, S2 normal. ABDOMEN: Benign.No mass. EXTREMITIES: No edema. Neuro, No gross deficit Assessment and Plan Assessment and Plan IMPRESSION 1. Ventilator dependent respiratory failure. 2. Pleural effusions status post chest tube placement. 3. Congestive heart failure. 4. Atrial fibrillation. Plan : 1. O2 at 4 L.N/C 2. Nebs qid , duoneb. 3. Continue diuretics. 4. Rocephin , 1 G IV daily. 5. CBC ,BMP in am. 6. PO diet . Paulo Rooney MD Nov 18, 2016 12:53
[2016-11-18] MEDS: hydrALAZINE HCL 20 MG/ML VIAL IV PUSH PRN (13:11)
[2016-11-18 13:20] LABS: ALKALINE PHOSPHATASE 187 U/L (45-117); ALT (GPT) 143 U/L (12-78); ANION GAP 6 MEQ/L (5-15); AST (GOT) 131 U/L (15-37); BICARBONATE 30.4 MEQ/L (21.0-32.0); BLOOD UREA NITROGEN 29 MG/DL (7-18); CHLORIDE 110 MEQ/L (98-107); GLOMERULAR FILTRATION RATE 106 ML/MIN (>89); POTASSIUM 4.3 MEQ/L (3.5-5.1); SODIUM (NA) 146 MEQ/L (136-145); TOTAL BILIRUBIN ADULT 0.4 MG/DL (0.2-1.0)
[2016-11-18] MEDS: WARFARIN SOD 6 MG TAB PO SCH (15:56)
--- NOTE | 2016-11-18 16:48 | HHI.HCPN ---
Reason for visit a. To assist with evaluation and management of symptoms including: Encephalopathy, pain, dyspnea b. To assist medical decision maker(s) with: better understanding of current medical conditions; weighing benefits/burdens of medical treatment options; making medical treatment decisions. . Subjective/Interval History Patient remains in the [facility], room 500. Patient was extubated this morning. Currently tolerating 4L oxygen via nasal cannula with oxygen saturations in the mid 90s. Status post left-sided thoracentesis yesterday 11/17/16 with 1.2 L of hemorrhagic fluid removed - cytology pending. Remains on IV steroids, antibiotics and diuretics. Patient is awake and alert, smiling. He responds to simple questions with 1-2 word answers, follows simple commands. On Precedex intermittently. Afebrile. Leukocytosis has resolved. Micrococcus bacteremia on admission. Sputum culture on 11/12/16: + Staph Aureus. Infectious disease continues to follow. Receiving IV antibiotics, ceftriaxone. . Advance Directives Advance Directive Specifics Health Care Surrogate(s): == No written designation of health care surrogacy. == Patient , has on several occasions, verbally stated that he wants BOTH of his children to participate in health care decision making if he is incapacitated to do so. . Documented care wishes: Patient's daughter has indicated during prior hospitalization that her father completed some type of written advanced directives but has not provided copies of these documents to date. . Objective Vital Signs Date Time Temp Pulse Resp B/P Pulse Ox O2 Delivery O2 Flow Rate FiO2 11/18/16 14:00 90 11/18/16 12:00 89 11/18/16 12:00 97.4 89 22 170/88 94 11/18/16 10:00 71 11/18/16 09:59 96 Nasal Cannula 4 11/18/16 09:59 96 Nasal Cannula 4.00 11/18/16 08:00 98.7 84 30 148/65 95 Arterial Line 11/18/16 08:00 84 11/18/16 07:37 97 45 11/18/16 06:00 61 11/18/16 04:00 98.8 62 22 97/51 94 11/18/16 04:00 40 11/18/16 04:00 62 11/18/16 03:55 96 40 11/18/16 02:00 69 11/18/16 01:15 95 40 11/18/16 00:00 69 11/18/16 00:00 40 11/18/16 00:00 99.1 69 22 139/65 93 11/17/16 22:03 97 40 11/17/16 22:00 69 11/17/16 20:00 40 11/17/16 20:00 98.0 92 22 179/84 98 11/17/16 19:10 94 40 11/17/16 18:00 88 Intake & Output 11/18/16 11/18/16 07:00 19:00 Intake Total 1472 ml 332 ml Output Total 1100 ml 825 ml Balance 372 ml -493 ml Intake Oral 0 ml IV Total 841 ml 176 ml Tube Feeding 511 ml 156 ml Other 120 ml Output Urine Total 1100 ml 825 ml # Bowel Movements 0 . Physical Exam CONSTITUTIONAL/GENERAL: This is a frail, elderly male patient s/p extraction today, tolerating oxygen via nasal cannula TUBES/LINES/DRAINS: Right IJ central line, PIV x3, Vital, podus notes SKIN: Ecchymoses on upper extremities, multiple scabbed areas. BLE with venous insufficiency changes. HEAD: Atraumatic. Normocephalic. EYES: PERRLA ENT: Hearing grossly normal. Nose without bleeding or purulent drainage. NECK: Trachea midline. Supple, nontender. No palpable thyroid enlargement or nodularity. CARDIOVASCULAR: Regular rate and rhythm No murmurs, gallops, or rubs. Peripheral pulses symmetric. RESPIRATORY/CHEST: Tolerating 4L oxygen via nasal cannula s/p sedation today. Course breath sounds with scattered rhonchi. GASTROINTESTINAL: Abdomen soft, non-tender, nondistended. No guarding. Bowel sounds present. GENITOURINARY: Without palpable bladder distension. Vital catheter in place. MUSCULOSKELETAL: Extremities without edema. No deformities. LYMPHATICS: No palpable cervical or supraclavicular adenopathy. NEUROLOGICAL: Awake and alert, smiling. Responds to simple questions with 1-2 word answers, follows simple commands. PSYCHIATRIC: No apparent anxiety/agitation noted. . Diagnostic Tests Laboratory Laboratory Tests Test 11/16/16 11/16/16 11/17/16 11/17/16 03:20 08:15 04:30 09:52 Prothrombin Time 20.1 SEC 19.8 SEC (9.8-11.6) (9.8-11.6) Prothromb Time International 1.8 RATIO 1.7 RATIO Ratio White Blood Count 9.6 TH/MM3 9.0 TH/MM3 (4.0-11.0) (4.0-11.0) Red Blood Count 3.22 MIL/MM3 3.32 MIL/MM3 (4.50-5.90) (4.50-5.90) Hemoglobin 10.7 GM/DL 11.0 GM/DL (13.0-17.0) (13.0-17.0) Hematocrit 31.9 % 32.5 % (39.0-51.0) (39.0-51.0) Mean Corpuscular Volume 99.0 FL 98.0 FL (80.0-100.0) (80.0-100.0) Mean Corpuscular Hemoglobin 33.3 PG 33.2 PG (27.0-34.0) (27.0-34.0) Mean Corpuscular Hemoglobin 33.6 % 33.8 % Concent (32.0-36.0) (32.0-36.0) Red Cell Distribution Width 15.4 % 15.1 % (11.6-17.2) (11.6-17.2) Platelet Count 114 TH/MM3 116 TH/MM3 (150-450) (150-450) Mean Platelet Volume 8.6 FL 8.4 FL (7.0-11.0) (7.0-11.0) Neutrophils (%) (Auto) 78.1 % 78.7 % (16.0-70.0) (16.0-70.0) Lymphocytes (%) (Auto) 10.1 % 11.3 % (9.0-44.0) (9.0-44.0) Monocytes (%) (Auto) 10.1 % 8.6 % (0.0-8.0) (0.0-8.0) Eosinophils (%) (Auto) 1.5 % (0.0-4.0) 1.3 % (0.0-4.0) Basophils (%) (Auto) 0.2 % (0.0-2.0) 0.1 % (0.0-2.0) Neutrophils # (Auto) 7.5 TH/MM3 7.1 TH/MM3 (1.8-7.7) (1.8-7.7) Lymphocytes # (Auto) 1.0 TH/MM3 1.0 TH/MM3 (1.0-4.8) (1.0-4.8) Monocytes # (Auto) 1.0 TH/MM3 0.8 TH/MM3 (0-0.9) (0-0.9) Eosinophils # (Auto) 0.1 TH/MM3 0.1 TH/MM3 (0-0.4) (0-0.4) Basophils # (Auto) 0.0 TH/MM3 0.0 TH/MM3 (0-0.2) (0-0.2) CBC Comment AUTO DIFF DIFF FINAL Differential Total Cells 100 Counted Neutrophils % (Manual) 78 % (16-70) Band Neutrophils % 4 % (0-6) Lymphocytes % 6 % (9-44) Monocytes % 8 % (0-8) Eosinophils % 2 % (0-4) Neutrophils # (Manual) 8.1 TH/MM3 (1.8-7.7) Metamyelocytes 2 % (0-1) Differential Comment FINAL DIFF MANUAL Platelet Estimate LOW (NORMAL) Platelet Morphology Comment NORMAL (NORMAL) Ovalocytes 1+ (NORMAL) Sodium Level 147 MEQ/L 146 MEQ/L (136-145) (136-145) Potassium Level 3.8 MEQ/L 3.9 MEQ/L (3.5-5.1) (3.5-5.1) Chloride Level 109 MEQ/L 109 MEQ/L (98-107) (98-107) Carbon Dioxide Level 31.0 MEQ/L 30.8 MEQ/L (21.0-32.0) (21.0-32.0) Anion Gap 7 MEQ/L (5-15) 6 MEQ/L (5-15) Blood Urea Nitrogen 26 MG/DL (7-18) 23 MG/DL (7-18) Creatinine 0.60 MG/DL 0.55 MG/DL (0.60-1.30) (0.60-1.30) Estimat Glomerular Filtration 129 ML/MIN 143 ML/MIN Rate (>89) (>89) Random Glucose 135 MG/DL 118 MG/DL (74-106) (74-106) Calcium Level 7.9 MG/DL 8.1 MG/DL (8.5-10.1) (8.5-10.1) Magnesium Level 2.1 MG/DL 2.1 MG/DL (1.5-2.5) (1.5-2.5) Total Bilirubin 0.4 MG/DL 0.5 MG/DL (0.2-1.0) (0.2-1.0) Aspartate Amino Transf 101 U/L (15-37) 120 U/L (15-37) (AST/SGOT) Alanine Aminotransferase 110 U/L (12-78) 140 U/L (12-78) (ALT/SGPT) Alkaline Phosphatase 148 U/L 164 U/L (45-117) (45-117) Total Protein 5.0 GM/DL 5.2 GM/DL (6.4-8.2) (6.4-8.2) Albumin 1.9 GM/DL 1.9 GM/DL (3.4-5.0) (3.4-5.0) Blood Type A POSITIVE Blood Bank Comment Test 11/17/16 11/17/16 11/17/16 11/18/16 09:57 11:30 17:45 04:00 Blood Type A POSITIVE Pleural Fluid pH 8.5 Pleural Fluid WBC 2203 /MM3 (0-10) Pleural Fluid RBC 32447 /MM3 (0-0) Pleural Fluid Neutrophils 54 % Pleural Fluid Lymphocytes 32 % Pleural Fluid Monocytes 12 % Pleural Fluid Plasma Cells 1 % Pleural Fluid Histiocytes 1 % Pleural Fluid Total Protein 1.9 GM/DL Pleural Fluid LDH 194 U/L Pleural Fluid Glucose 110 MG/DL Pleural Fluid Amylase 20 U/L Lactate Dehydrogenase 253 U/L (87-241) Prothrombin Time 18.1 SEC (9.8-11.6) Prothromb Time International 1.6 RATIO Ratio Test 11/18/16 11/18/16 07:55 12:30 Blood Gas Puncture Site RT RADIAL Blood Gas Patient Temperature 98.6 Blood Gas HCO3 27 mmol/L (22-26) Blood Gas Base Excess 2.5 mmol/L (-2-2) Blood Gas Oxygen Saturation 97 % (90-100) Arterial Blood pH 7.41 (7.380-7.420) Arterial Blood Partial 43 mmHg (38-42) Pressure CO2 Arterial Blood Partial 140 mmHg Pressure O2 (61-120) Arterial Blood Oxygen Content 15.2 Vol % (12.0-20.0) Arterial Blood 1.4 % (0-4) Carboxyhemoglobin Arterial Blood Methemoglobin 0.9 % (0-2) Blood Gas Hemoglobin 11.0 G/DL (12.0-16.0) Oxygen Delivery Device VENTILATOR Blood Gas Ventilator Setting CPAP 5/8PS Blood Gas Inspired Oxygen 45 % Sodium Level 146 MEQ/L (136-145) Potassium Level 4.3 MEQ/L (3.5-5.1) Chloride Level 110 MEQ/L (98-107) Carbon Dioxide Level 30.4 MEQ/L (21.0-32.0) Anion Gap 6 MEQ/L (5-15) Blood Urea Nitrogen 29 MG/DL (7-18) Creatinine 0.71 MG/DL (0.60-1.30) Estimat Glomerular Filtration 106 ML/MIN Rate (>89) Random Glucose 111 MG/DL (74-106) Calcium Level 8.2 MG/DL (8.5-10.1) Total Bilirubin 0.4 MG/DL (0.2-1.0) Aspartate Amino Transf 131 U/L (15-37) (AST/SGOT) Alanine Aminotransferase 143 U/L (12-78) (ALT/SGPT) Alkaline Phosphatase 187 U/L (45-117) Total Protein 5.8 GM/DL (6.4-8.2) Albumin 2.3 GM/DL (3.4-5.0) . Result Diagram: 11/17/16 0430 11/18/16 1230 Microbiology Microbiology Date/Time Procedure Status Source Growth 11/17/16 11:30 Gram Stain - Final Resulted Fluid Pleural Fluid 11/17/16 11:30 Body Fluid Culture - Preliminary Resulted Fluid Pleural Fluid NO GROWTH IN 24 HOURS. 11/17/16 11:30 Acid Fast Stain Received Fluid Pleural Fluid Pending 11/17/16 11:30 Mycobacterial Culture Received Fluid Pleural Fluid Pending 11/17/16 11:30 Fungal Smear - Final Resulted Fluid Pleural Fluid NO FUNGAL ELEMENTS SEEN. 11/17/16 11:30 Fungal Culture Resulted Fluid Pleural Fluid Pending . Imaging Last 72 hours Impressions Chest X-Ray 11/18/16 0000 Signed Impressions: Service Date/Time: Friday, November 18, 2016 08:21 - CONCLUSION: Interval improvement. Kun Mendoza MD FACR Chest X-Ray 11/17/16 0600 Signed Impressions: Service Date/Time: Thursday, November 17, 2016 03:05 - CONCLUSION: Unchanged cardiomegaly, bilateral pleural effusions, and bilateral pulmonary infiltrates. Charbel Fuchs Jr., MD Liver Ultrasound 11/17/16 0000 Signed Impressions: Service Date/Time: Thursday, November 17, 2016 15:58 - CONCLUSION: 1. Increased liver echogenicity characteristic of mild fatty infiltration or hepatocellular disease. 2. Trace free fluid in the abdomen. Pleural effusions. Mild gallbladder wall thickening. Chaka Campos MD Chest X-Ray 11/17/16 0000 Signed Impressions: Service Date/Time: Thursday, November 17, 2016 11:20 - CONCLUSION: Given the differences in patient positioning the exam appears slightly improved with respect to the left hemithorax. Stable right pleural effusion and basilar airspace consolidation. Stable left lower lobe atelectasis versus consolidation. Brunilda Arthur MD Chest X-Ray 11/16/16 0000 Signed Impressions: Service Date/Time: Wednesday, November 16, 2016 22:27 - CONCLUSION: 1. Some enlargement of the right pleural effusion following chest tube removal. No pneumothorax. 2. Slight enlargement of left pleural effusion. 3. Unchanged cardiomegaly and bilateral infiltrates. Charbel Fuchs Jr., MD . Procedures 11/08/16: Intubation 11/08/16: Right IJ central line placement 11/08/16: Right chest tube placement with thoracentesis 11/15/16: Left arterial line removed 11/18/16: Extubation . Assessment and Plan Disease Oriented Problem List: (1) Pleural effusion (2) Congestive heart failure (3) Chronic atrial fibrillation (4) Pneumothorax (5) Hypertension (6) Acute respiratory failure with hypoxia and hypercapnia (7) COPD (chronic obstructive pulmonary disease) (8) Pneumonia (9) Protein-calorie malnutrition, severe Symptom Scale: (1) Dyspnea 0-10 Scale: Unable to quantify Comment: Patient was extubated this morning. Currently tolerating 4L oxygen via nasal cannula with oxygen saturations in the mid 90s. Status post left- sided thoracentesis yesterday 11/17/16 with 1.2 L of hemorrhagic fluid removed - cytology pending. Remains on IV steroids, antibiotics and diuretics. Sputum culture + staph aureus. . (2) Pain 0-10 Scale: Unable to quantify Comment: Probable causes of pain include dyspnea, infection, invasiveness lines , skin breakdown, immobility, bedbound status etc. Titrating Precedex drip as needed. PRN acetaminophen is available for pain/fever as well. (3) Encephalopathy 0-10 Scale: Unable to quantify Comment: Patient is awake and alert, smiling. He responds to simple questions with 1-2 word answers, follows simple commands. On Precedex intermittently. . Pertinent Non-Medical Issues Psychosocial: Patient is originally from [facility] but has lived in [place] since . 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 He was and , many years ago. He has 2 children. His daughter, Raissa daniels, lives locally and is very involved in the patient's care. The patient also has a son living in [place], but reportedly has not seen him in the last 5 years. The patient does keep in touch. The patient lives alone. His daughter lives a few blocks away and assist the patient with shopping and meal preparation. Spiritual: The patient comes from [employer] tradition. Per his daughter, episcopal and spirituality have not been an important part of his life. Legal: Ethical issues impacting care: No known ethical issues impacting care at this time. Important Contacts Raissa Duncan (daughter) [phone] Anselmo Duncan (son) [phone] Aneesh Walls (friend) [phone] . Prognosis This is an 81-year-old male with an extensive history (decades) of congestive heart failure complicated by underlying COPD, history of alcohol abuse. Patient has been declining since March 2016 particularly with recurrent right pleural effusions. He has required > 5 thoracenteses since that time. He has been living at [facility] since [facility] [place] [facility] [place]. There is known ischemic heart disease and failure may be primarily due to valvular heart disease. There is severe tricuspid regurgitation. Patient There is a reasonable chance he will continue to improve well enough to survive the hospitalization. Based on his history of the last few months, long-term prognosis is not good. Life expectancy is probably in the order of months. Patient would certainly be eligible for hospice services at such time as his goals become mostly comfort oriented. Code Status: Full Code Plan * FULL CODE * Decision making: Patient is currently incapacitated and unable to participate in clarification of medical treatment goals. It is unclear at this time if the patient will ever became this capacity. Per [place] statutes, in the absence of written advanced directives healthcare proxy decision making would fall to the patient's 2 adult children. Patient, has on several occasions during previous hospitalization, verbally stated that he wanted BOTH of his children to participate in health care decision making if he is incapacitated to do so. * GOALS: Aggressive goals * Symptom managementdyspnea: Patient was extubated this morning. Currently tolerating 4L oxygen via nasal cannula with oxygen saturations in the mid 90s. Status post left-sided thoracentesis yesterday 11/17/16 with 1.2 L of hemorrhagic fluid removed - cytology pending. Remains on IV steroids, antibiotics and diuretics. Sputum culture + staph aureus. * Symptom managementencephalopathy: Neurology following. Patient is awake and alert, smiling. He responds to simple questions with 1-2 word answers, follows simple commands. On Precedex intermittently. * Symptom managementpain: Probable causes of pain include dyspnea, infection, invasiveness lines, skin breakdown, immobility, bedbound status etc. On Precedex infusion intermittently. PRN acetaminophen is available for pain/fever as well. Palliative care will monitor for s/s nonverbal pain and make recommendations as indicated. * Discussed with nurse and Dr. Bartlett. * Palliative care will continue to follow this patient throughout his hospitalization to establish trust, assist with symptom management and clarification of medical treatment goals. . Attestation To help prompt me to consider important information that might be impacting today's encounter and assessment, information from prior notes written by myself or my colleagues may have been "brought forward" into today's note. My signature on this note, however, is an attestation that I personally performed the exam, history, and/or decision-making noted today, and, unless otherwise indicated, the interactions with patient, family, and staff as well as the review of records all occurred today. I also attest that the listed assessment and stated plan reflect my best clinical judgment today based on the combination of historical information, prior notes, and today's exam/ interactions. When time spent is documented, it refers only to time spent today by the signer, or if indicated, combined time spent today by collaborating physician/nurse practitioner. . Sujatha Elliott Nov 18, 2016 16:48
[2016-11-18] MEDS: cefTRIAXone INJ 2,000 MG in SODIUM CHLORIDE 0.9% INJ 100 ML IV SCH (17:35)
[2016-11-19] VITALS (14 sets, daily range): BP systolic 107–169; BP diastolic 53–72; PULSE 57–87; RESP 22–40; TEMP 97.5–98.2; O2SAT 93–100
[2016-11-19] MEDS: PHENYTOIN INJ 100 MG/2 ML VIAL IV PUSH SCH ×3 (00:25→16:56)
[2016-11-19] MEDS: DEXMEDETOMIDINE INJ 50 ML IV SCH (01:52)
[2016-11-19] MEDS: LORazepam 2 MG/ML VIAL IV PUSH PRN ×2 (02:17→23:02)
[2016-11-19] MEDS: DEXMEDETOMIDINE INJ 1,000 MCG in SODIUM CHLOR 0.9% 250 ML INJ 240 ML IV SCH ×2 (04:06→13:04)
--- NOTE | 2016-11-19 04:47 | RADRPT ---
EXAM DATE/TIME: 11/19/2016 02:37 [facility] COMPARISON: CHEST SINGLE AP, November 18, 2016, 8:21. INDICATIONS : Respiratory distress. MEDICAL HISTORY : Hypercholesterolemia. Hypertension. Chronic obstructive pulmonary disease. Cerebrovascular accident. Congestive heart failure. SURGICAL HISTORY : Thoracentesis. ENCOUNTER: Subsequent ACUITY: 2 weeks PAIN SCORE: Non-responsive. LOCATION: Bilateral chest FINDINGS: A single view of the chest demonstrates cardiomegaly. Previous endotracheal tube and nasogastric tube have been removed right central line has been removed. Slight increase in left basilar airspace dise ase over the last date. Right basilar opacity and bilateral pleural effusions persist. No pneumothora x. CONCLUSION: 1. Interval extubation and removal of NG tube. Slight worsening of airspace disease on the left. Card iomegaly with bilateral effusions. Chaka Campos MD on November 19, 2016 at 4:43 Board Certified Radiologist. This report was verified electronically.
[2016-11-19 05:39] LABS: AUTOMATED NEUTROPHIL # 8.2 TH/MM3 (1.8-7.7); BASOPHIL % 0.2 % (0.0-2.0); EOSINOPHIL % 0.5 % (0.0-4.0); HEMATOCRIT 30.7 % (39.0-51.0); HEMO FLAGS DIFF FINAL; LYMPH % 7.6 % (9.0-44.0); LYMPHOCYTE # 0.7 TH/MM3 (1.0-4.8); MEAN CORPUSCULAR HEMOGLOBIN 33.8 PG (27.0-34.0); MEAN CORPUSCULAR HGB CONC 33.8 % (32.0-36.0); NEUT % 86.7 % (16.0-70.0); PLATELET COUNT 129 TH/MM3 (150-450); RED BLOOD COUNT 3.07 MIL/MM3 (4.50-5.90); RED CELL DISTRIBUTION WIDTH 15.5 % (11.6-17.2); WHITE BLOOD COUNT 9.4 TH/MM3 (4.0-11.0)
[2016-11-19 05:48] LABS: INTERNATIONAL NORMALIZED RATIO 1.3 RATIO; PROTHROMBIN TIME - PATIENT 14.4 SEC (9.8-11.6)
[2016-11-19] MEDS: INSULIN NovoLIN REGULAR SUPPLEMENTAL SCALE SQ SCH ×5 (06:00→23:01)
[2016-11-19 06:06] LABS: ALKALINE PHOSPHATASE 161 U/L (45-117); ALT (GPT) 108 U/L (12-78); ANION GAP 6 MEQ/L (5-15); AST (GOT) 75 U/L (15-37); BICARBONATE 31.9 MEQ/L (21.0-32.0); BLOOD UREA NITROGEN 27 MG/DL (7-18); CHLORIDE 112 MEQ/L (98-107); GLOMERULAR FILTRATION RATE 143 ML/MIN (>89); MAGNESIUM 2.3 MG/DL (1.5-2.5); POTASSIUM 4.1 MEQ/L (3.5-5.1); SODIUM (NA) 150 MEQ/L (136-145); TOTAL BILIRUBIN ADULT 0.3 MG/DL (0.2-1.0)
[2016-11-19] MEDS: DEXTROSE 5% IN WATE 1000ML INJ 1,000 ML IV SCH ×2 (06:52→16:56)
--- NOTE | 2016-11-19 06:59 | MB ---
cc: SHEN LUIS DATE OF CONSULTATION 11/17/2016 REASON FOR CONSULTATION Respiratory failure and pleural effusions. HISTORY OF PRESENT ILLNESS This is an 81-year-old man with a history of recurrent large right pleural effusion who was intubated and has been on ventilator support since this week. The patient has had prior history of bilateral pleural effusions requiring thoracentesis and he was admitted again with shortness of breath, orthopnea and chest tightness and he has had a chest tube placed in the past. This time, however, the patient was intubated and on ventilator support and the right chest tube had already been in place which had drained most to the effusion and a left thoracentesis was also done this week with removal of another 450 cc of fluid. The patient has been lethargic while on the vent and the patient has been sedated and thus unable to respond to any questions and most of the information is from the chart. PAST HISTORY 1. History of COPD. 2. History of hypertension. 3. Chronic atrial fibrillation. 4. History of diastolic heart failure. 5. Malnutrition. 6. He has been on anticoagulation for A-fib. PAST SURGICAL HISTORY 1. Eye surgery. 2. Right knee surgery. 3. Thoracentesis. FAMILY HISTORY Noncontributory. HABITS There is a history of smoking in the past for over 30 years. No significant alcohol. FAMILY HISTORY Noncontributory SYSTEMS REVIEW Unable to obtain. PHYSICAL EXAMINATION GENERAL: This is an elderly man, thinly built, on the ventilator. VITAL SIGNS: Blood pressure 130/60, pulse is 80, respirations 24, temperature 98.2. HEENT: Head normocephalic. Pupils reactive. Tongue moist. Nasal mucosa injected. Throat is mildly injected. NECK: No bruits or thyroid enlargement or lymphadenopathy. CHEST: Distant breath sounds with wheezes throughout both lung ahuja, prolonged expirations. HEART: The heart sounds are irregular. S1 and S2. ABDOMEN: Soft and benign. No mass, no organomegaly. EXTREMITIES: Muscle wasting with diminished pulses. Pigmentation of the skin of the lower extremities. NEUROLOGIC: The patient withdraws weekly, 1+ reflexes. SKIN: Dry and skin turgor is diminished. IMPRESSION 1. Chronic respiratory failure. 2. Pulmonary edema and bilateral effusions. 3. Right pleural effusion. 4. Hypertension. PLAN The patient is being weaned down to C-PAP today. We will check respiratory parameters and if he is clinically stable and blood gases are adequate, could be extubated, placed on nasal cannula at 5 liters. The patient will be advised to use incentive spirometer and also continued on DuoNeb solution and nebulizer q.i.d. Follow-up chest x-ray will be done in the a.m. I will follow and discuss the case with you, Dr. Bartlett. Thank for this consultation. MD TRAN Pineda/JANET /11:42 PM /6:44 AM
[2016-11-19] MEDS: RESP: ALBUTEROL 2.5 MG/IPRATROPIUM 0.5 MG NEB (SCH) INH ×3 (07:53→23:42)
[2016-11-19] MEDS: methylPREDNISolone SOD SUCC 40 MG/1 ML VIAL IV PUSH SCH ×2 (08:11→20:03)
[2016-11-19] MEDS: BUMETANIDE INJ 1 MG/4 ML VIAL IV PUSH SCH ×2 (08:11→16:56)
[2016-11-19] MEDS: ATENOLOL 50 MG TAB PO SCH ×2 (08:13→20:03)
[2016-11-19] MEDS: SODIUM CHLORIDE 0.9% FLUSH 5 ML FLUSH FLUSH SCH ×2 (08:13→20:02)
[2016-11-19] MEDS: CAPTOPRIL 50 MG TAB PO SCH ×3 (08:13→16:56)
[2016-11-19] MEDS: POTASSIUM CHLORIDE 20 MEQ PWD PACKET NG SCH ×2 (08:13→20:03)
[2016-11-19] MEDS: SODIUM CHLORIDE 0.9% FLUSH 5 ML FLUSH IVF SCH (08:13)
--- NOTE | 2016-11-19 08:40 | HHI.CCPN ---
Subjective Remarks/Hospital Course This is an 81-year-old male who has had multiple readmissions over the past few months for a recurrent right-sided pleural effusion. He represents from his halfway facility with recurrent right-sided pleural effusion as well as hypoxia and somnolence. He was found to have significant hypercarbia and a PCO2 in the 90s. He was initially placed on BiPAP and admitted to the [facility]. He became more somnolent and his oxygen saturation began to decline. At this point a critical care medicine is consulted to evaluate and manage his hypercarbic respiratory failure. Because he is failed his trial of noninvasive positive pressure ventilation, we will move towards intubating the patient. I evaluated the patient and he is essentially unresponsive and obtunded and only minimally withdrawing to pain. I can obtain no additional history from the patient. Subjective: 11/09: Early this a.m. at approximately 06:30 the patient was noted to have a grand mal seizure lasting approximately 60 seconds followed by a small tonic- clonic seizure lasting 30 seconds involving the lower extremities. The patient received Ativan 2 mg with cessation of seizure activity. Stat CT of the brain without contrast was obtained showed no acute abnormality. EEG was obtained previously awaiting results. Prior to the event the patient was noted to be on a fentanyl infusion at approximately 250 mcg/h. The patient was noted to be a GCS 10T, squeezing my hand. 11/10: The patient was noted to have multiple seizures requiring interventions with IV Ativan. Described as tonic-clonic in nature with eyes rolled back in the head. Gross motor movement shaking 4 extremities. Today the patient was noted to have a positive growth and blood cultures. WBC count elevated. Ammonia level was drawn less than 10, lactate was noted to be 2.2 this morning. Pleural fluid culture negative growth to date. 11/11: On stimulation patient continues to have jerking movement of all extremities. EEG negative for seizures. Check MRI today. Dr. Kirkland is neurology. Remains on 2 mcg/min of Levophed 11/12: Per neurologist, patient had witnessed with tonic convulsions started over right arm and propagated to left UE and both LE with fluttering of the eyes and upward gaze.Loaded with Dilantin iv infusion and a maintenance dose of 100mg Q8h, Stat EEG negative for seizures. Its unclear to me whether it is seizure or myoclonus 11/13: No change in neuro status. Continues to have jerking movements off lower extremity when stimulated. EEG 2 have been negative for seizures. We'll hold sedation for neuro exam 11/14: On sedation hold opens eyes. Appears to follow commands and upper extremity. Still has some tremulousness of the extremities. Remains off pressors 11/15: Remains on Precedex intermittently following commands for RN. Placed on CPAP tolerating well. No evidence of myoclonus now 11/16: On 1.1 mcg/kg/hr of Precedex. No spontaneous eye opening but moves all extremities spontaneously. Not following commands will reduce Precedex, and start weaning trials 11/17: Mental status significantly improved patient following commands on Precedex. However chest tube was dislodged yesterday evening, now has bilateral pleural effusions left is more than right, appears large. Vent day 10 11/18: Off Precedex following commands upper extremities. But continues to fail C Pap trials due to tachypnea and low tidal volumes. Status post large-volume left thoracentesis yesterday with 1.2 L of old blood-tinged fluid removed. 11/19: Overnight agitated, requiring maximum dose Precedex 1.4 mcg per kg per hr and restraints. Currently heavily sedated. Chest x-ray shows increasing left effusion confirmed by ultrasound. We'll proceed with left pigtail catheter after consent. Continue to hold Coumadin due to hemorrhagic effusion Objective Vital Signs Date Time Temp Pulse Resp B/P Pulse Ox O2 Delivery O2 Flow Rate FiO2 11/19/16 07:53 97 Nasal Cannula 3.00 11/19/16 06:00 64 11/19/16 04:00 97.5 26 107/53 11/18/16 07:37 45 Intake and Output 11/18/16 11/18/16 11/19/16 08:00 16:00 00:00 Intake Total 623 ml 332 ml 152 ml Output Total 450 ml 825 ml 475 ml Balance 173 ml -493 ml -323 ml Result Diagram: 11/19/16 0339 11/19/169 Imaging Last [address] 11/07/161955 Signed Impressions: Service Date/Time: October 20:38 - CONCLUSION: No acute intracranial abnormality demonstrated. Chronic white matter and old ischemic changes. Dhruv Foster MD Chest X-Ray 11/07/161955 Signed Impressions: Service Date/Time: October 20:54 - CONCLUSION: Worsening bilateral airspace disease and pleural effusions. Dhruv Foster MD Objective Remarks GENERAL: This is a elderly critically ill-appearing cachectic male, sedated with Precedex due to agitation HEENT: Normocephalic. Atraumatic. Pupils equal, round, reactive. NECK: Trachea is midline. No JVD. Orotracheally intubated CHEST: Right sided chest tube dislodged 11/16/16. Distant breath sounds. Air entry diminished bilaterally. Moderate to large L effusion CARDIOVASCULAR: Normal rate, regular rhythm. No appreciable murmurs. ABDOMEN: After, nontender, nondistended. No guarding. MUSCULOSKELETAL: 1+ peripheral edema. Distal pulses 2+ NEUROLOGICAL: IV sedation with Precedex limited exam. (Was severely agitated overnight). Withdraws extremities to pain Urinary Catheter: Yes Assessment to: Continue Date of Insertion: Nov 08, 2016 Side: Right Location: Internal, Jugular A/P Assessment and Plan Assessment: This is an 81-year-old male with history of prior recurrent right pleural effusions and COPD now presents with acute hypercarbic and hypoxic respiratory failure which has failed noninvasive positive pressure ventilation. Intubated and placed on mechanical ventilation. Covering COPD exacerbation, as well as healthcare associated pneumonia given his history of being on Levaquin at his halfway facility. He remains critically ill. Not sure that we will be able to get him through this hospitalization, and his recurrent respiratory failures are clearly making him more deconditioned every time he comes in the hospital. Despite this, daughter continues to request aggressive measures. Extubated 11/18/16 Plan by systems: Neurologic: Myoclonus-resolved Agitated delirium CO2 narcosis Metabolic encephalopathy Mild dementia -Currently on Precedex for severe agitation. Start weaning as tolerated -Ativan PRN for breakthrough seizures. Add Haldol (No sz on EEG) -EEG negative 11/10/15, 11/11/16 (moderate to severe encephalopathy, no seizure) -11/08 CT of the brain-no acute abnormality. 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 Question of amyloid -Neurology impression-probable anoxic injury. Respiratory: Acute hypercarbic and hypoxic respiratory failure Recurrent right pleural effusion s/p chest tube placement-dilsodged 11/17 Right pneumothorax-resolved Large hemorrhagic left pleural effusion status post thoracentesis 11/17/16 Healthcare associated pneumonia COPD exacerbation Methylprednisolone 40 q12, DuoNeb every 8 and every 2 when necessary --Pulmonary Dr. Bone, plan was pleurodesis prior to removal of R chest tube, but accidentally dislodged Head of bed at 30, Vent bundle, wean FiO2 for goal SPO2 greater than 90% Extubated (11/18/16) Vent day 11. Protecting airway at this time --Status post left thoracentesis 11/17/16 with 1.2 L of hemorrhagic fluid removed. CXR/US shows reaccumulation of left pleural fluid. Place pigtail chest tube at 11/19/1611/08 S/P CT guided IR drainage of recurrent right posterior pleural effusion, unable to perform pleurodesis, accidentally dislodged Antibiotics as described below Cardiovascular: Severe pulmonary hypertension (PASP 85 on Echo 10/08/16) A. fib RVR Hypertension Maintain map greater than 60-65 Resumed home antihypertensives (captopril and atenolol 11/14/16) --Monitor CVP --Start Revatio 20 mg TID if repeat 2d echo consistently shows elevated PASP Renal: Hypernatremia Maintain Vital for accurate --Strict I/Os --Placed on D5W at 100 mL per hour FEN/GI: Acute intravascular volume overload Acute protein calorie malnutritionsevere Metabolic alkalosis NPO. NGT if mentation does not permit oral feeding ICU electrolyte protocol --Bumex 2 mg IV x1 11/17, started scheduled Bumex 1 mg IV every 12 11/17, free water replacement with D5W Heme/ID: Possible healthcare associated pneumonia, staph aureus in sputum Leukocytosis CBC CMP today - ID consulted by Dr. Gaspar. Dr. Topete following Does not meet transfusion triggers at this time Currently on ceftriaxone 2 g IV every 24 hours per ID (Vanc and cefepime DCd ) 11/08 blood -micrococcus 08/28 possible contaminant - Urine cultures-NGTD --Sputum cx 11/12/16 with staph aureus Endocrine: Hyperglycemia of critical illness -- SSI, medium scale, every 6 hours Prophylaxis: GI Prophylaxis Protonix 40 mg IV every 24 hours DVT Prophylaxis --SCDs Patient was Coumadin, hold due to multiple procedures, and also hemorrhagic left pleural effusion Lines: Peripheral IVsx 2. central line Vital Dispo: Discussed medical update with daughter who desires aggressive treatment at this time. spoke with SOCIAL SCIENTIST at bedside. palliative care following This patient remains critically ill with one or more organ systems which are or may become a threat to life. I have spent in excess of 32 minutes discontinuously in the care and management of this patient. This time is exclusive of procedures, and includes, but is not limited to, evaluation of the patient, review of the medical record, discussions with family, consultants, nursing staff, or respiratory therapy, and documentation in the medical record. Updated daughter at bedside on 11/17/16. She wants to continue aggressive care and proceed with tracheostomy and PEG tube if unable to wean Discussed with Dr. Bone. He will talk to the daughter again about addressing CODE STATUS and will recommend DNR Rebecca Bartlett MD Nov 19, 2016 08:40
--- NOTE | 2016-11-19 09:29 | PD.PROCEDR ---
Procedure Note Procedure Left pigtail chest tube placement (US guided) Informed consent was obtained and time out performed. Needle entry site on the left was marked with ultrasound. Full barrier and sterile precautions were used. Skin and subcutaneous tissue anesthetized with 1% lidocaine. A small skin bishop was made with scalpel. Introducer needle was placed into the pleural space and air was aspirated. A guidewire was placed and needle was removed. After dilation of track, 10 fr pigtail catheter was placed using Seldinger technique and then secured with sutures and stay fix. Initial air leak subsided quickly, after this does find him a lot of old blood tinged fluid output. Patient tolerated procedure well. Further lab work ordered. Chest tube was connected to Pleuro vac at -20 suction Rebecca Bartlett MD Nov 19, 2016 09:29
--- NOTE | 2016-11-19 10:04 | RADRPT ---
EXAM DATE/TIME: 11/19/2016 09:22 [facility] COMPARISON: CHEST SINGLE AP, November 19, 2016, 2:37. INDICATIONS : Post insertion of pig tail chest tube in left lung MEDICAL HISTORY : Hypertension. Chronic obstructive pulmonary disease. SURGICAL HISTORY : thoracentesis ENCOUNTER: Subsequent ACUITY: 1 day PAIN SCORE: Non-responsive. LOCATION: Left chest FINDINGS: Single AP view of the chest. New left-sided pigtail chest catheter is seen at the lung base. Marked cardiac silhouette enlargement unchanged. No change in patchy right lower lung zone opacity. Left ple ural effusion is no longer seen. There is medial left lower lobe consolidation versus atelectasis. No evidence of pneumothorax. CONCLUSION: Left-sided chest tube now in place. Left pleural effusion no longer seen. No evidence of pneumothorax . Persistent bilateral lower lung zone pulmonary parenchymal opacity. Mathew Guerrero MD on November 19, 2016 at 10:00 Board Certified Radiologist. This report was verified electronically.
[2016-11-19 11:55] LABS: TOTAL PROTEIN,PLEURAL FLUID 2.2 GM/DL
[2016-11-19 12:09] LABS: PLEURAL FLUID LYMPHS 31 %
[2016-11-19 12:17] LABS: PLEURAL FLUID PH 8.5
[2016-11-19] MEDS: CHLORHEXIDINE 0.12% (ORAL KIT) 15 ML CUP MT SCH ×2 (12:38→20:00)
--- NOTE | 2016-11-19 12:58 | HHI.PR ---
Subjective Remarks Had a left thoracentesis and now has a Chest tube on the left. Extubated and anxious.On O2 4l. On Precedex Objective Vital Signs Date Time Temp Pulse Resp B/P Pulse Ox O2 Delivery O2 Flow Rate FiO2 11/19/16 07:53 97 Nasal Cannula 3.00 11/19/16 06:00 64 11/19/16 04:00 63 11/19/16 04:00 97.5 63 26 107/53 98 11/19/16 02:00 80 11/19/16 00:00 73 11/19/16 00:00 98.2 73 40 160/70 96 11/18/16 22:00 73 11/18/16 20:00 97.0 85 39 144/62 95 11/18/16 20:00 85 11/18/16 19:23 96 Nasal Cannula 4.00 11/18/16 18:00 81 11/18/16 16:00 97.9 91 20 116/57 94 11/18/16 16:00 91 11/18/16 14:00 90 I/O 11/18/16 11/18/16 11/18/16 11/19/16 11/19/16 11/19/16 07:00 15:00 23:00 07:00 15:00 23:00 Intake Total 623 ml 332 ml 152 ml 257 ml Output Total 450 ml 825 ml 475 ml 100 ml Balance 173 ml -493 ml -323 ml 157 ml Intake Oral 0 ml 0 ml 0 ml IV Total 238 ml 176 ml 152 ml 257 ml Tube Feeding 325 ml 156 ml Other 60 ml Output Urine Total 450 ml 825 ml 475 ml 100 ml # Bowel Movements 0 2 1 1 Result Diagram: 11/19/16 0339 11/19/16338 Objective Remarks GENERAL: Elderly male awake and anxious . On o2 HEENT: Pupils are equal and react to light. Oral mucosa, nasal mucosa normal. NECK: Supple. JVP not raised. CHEST: Occ rales at the bases,and wheeze. Decreased breath sounds CARDIOVASCULAR: S1, S2 normal. ABDOMEN: Benign.No mass. EXTREMITIES: No edema. Neuro, No gross deficit Assessment and Plan Assessment and Plan IMPRESSION 1. Ventilator dependent respiratory failure. 2. Pleural effusions status post chest tube placement. 3. Congestive heart failure. 4. Atrial fibrillation. 5. Pulmonary HTN Plan : 1. O2 at 3 L.N/C 2. Nebs qid , duoneb. 3. Continue diuretics. 4. Chest tube to drainage 5. CBC ,BMP in am. 6. Add Sildenafil 20 mg tid Paulo Rooney MD Nov 19, 2016 12:58
--- NOTE | 2016-11-19 13:09 | ECHLIM ---
Study Study Date:11/19/2016 STUDY CONCLUSIONS SUMMARY - Left ventricle: The cavity size was normal. Wall thickness was normal. Systolic function was normal. The estimated ejection fraction was in the range of 50% to 55%. Wall motion was normal; there were no regional wall motion abnormalities. - Tricuspid valve: Moderate-severe regurgitation. - Pulmonary arteries: PA peak pressure: 47mm Hg (S). If LV function is below 40, please consider prescribing an ACEI or ARB or document rationale for non-use. PROCEDURE DATA STUDY STATUS: Elective. Procedure: Transthoracic echocardiography. Image quality was poor. Scanning was performed from the parasternal, apical, and subcostal acoustic windows. Study completion: The patient tolerated the procedure well. Transthoracic echocardiography. M-mode, complete 2D, complete spectral Doppler, and color Doppler. Height: Height: 70in. Weight: Weight: 159.7lb. Body mass index: BMI: 23kg/m^2. Body surface area: BSA: 1.9m^2. Patient status: Inpatient. CARDIAC ANATOMY LEFT VENTRICLE: The cavity size was normal. Wall thickness was normal. Systolic function was normal. The estimated ejection fraction was in the range of 50% to 55%. Wall motion was normal; there were no regional wall motion abnormalities. AORTIC VALVE: Trileaflet; normal thickness leaflets. Doppler: Transvalvular velocity was within the normal range. There was no stenosis. No regurgitation. AORTA: Aortic root: The aortic root was normal in size. MITRAL VALVE: Structurally normal valve. Doppler: Transvalvular velocity was within the normal range. There was no evidence for stenosis. Trace to mild regurgitation. LEFT ATRIUM: severely enlarged The atrium was normal in size. RIGHT VENTRICLE: The cavity size was normal. Wall thickness was normal. PULMONIC VALVE: Doppler: Transvalvular velocity was within the normal range. There was no evidence for stenosis. No regurgitation. TRICUSPID VALVE: Structurally normal valve. Doppler: Transvalvular velocity was within the normal range. Moderate-severe regurgitation. Peak gradient: 40mm Hg (D). PULMONARY ARTERY: The main pulmonary artery was normal-sized. Systolic pressure was within the normal range. RIGHT ATRIUM: severely enlarged The atrium was normal in size. PERICARDIUM: There was no pericardial effusion. SYSTEMIC VEINS: Inferior vena cava: The vessel was normal in size. Patient weight: 159.7lb _Ejection fraction:_ 65-75% _Fractional shortening:_ 32% up to 5Kg 5-11.5Kg 11.6-22.9Kg 23-45Kg 45-57Kg Aortic Root 7-13 <17 13-22 17-27 17-27 LA diam 6-13 <23 24-38 33-47 37-40 RVID 10-17 7-15 7-15 7-18 8-17 LVIDd 12-22 <32 24-38 33-47 37-40 LVPW 2-4 3-6 5-7 6-8 7-8 IVS 2-4 3-6 5-7 6-8 7-8 BASIC MEASUREMENTS ADULT Normal Left ventricle LV internal dimension, ED, chordal level, *39.8 mm 43-52 PLAX LV internal dimension, ES, chordal level, 28.5 mm 23-38 PLAX Fractional shortening, chordal level, PLAX *28 % >29 LV posterior wall thickness, ED 12.5 mm IVS/LVPW ratio, ED 1 <1.3 Volume, ED, MOD, 1-plane 85 ml Volume, ES, MOD, 1-plane 40 ml Ejection fraction, MOD, 1-plane 53 % Stroke volume, MOD, 1-plane 45 ml Volume index, ED, MOD, 1-plane 45 ml/m^2 Volume index, ES, MOD, 1-plane 21 ml/m^2 Stroke index, MOD, 1-plane 23.7 ml/m^2 Ventricular septum Septal thickness, ED 12.5 mm Left atrium Anterior-posterior dimension 57 mm Anterior-posterior dimension index * 3 cm/m^2 <2.2 DOPPLER MEASUREMENTS ADULT Normal Main pulmonary artery Pressure, S *47 mm Hg =30 Tricuspid valve Peak gradient, D 40 mm Hg Maximal inflow velocity 318 cm/s Regurgitant peak velocity 324 cm/s Peak RV-RA gradient, S 42 mm Hg Maximal regurgitant velocity 324 cm/s Systemic veins Estimated CVP 10 mm Hg Right ventricle RV pressure, S *52 mm Hg <30 Pulmonic valve Peak velocity, S 113 cm/s LEGEND: Mean values are shown as u=mean value. Asterisk (*) caraballo values outside specified normal range. Prepared and signed by Sony Topete [id number]
--- NOTE | 2016-11-19 14:30 | HHI.HCPN ---
Reason for visit a. To assist with evaluation and management of symptoms including: encephalopathy, pain, dyspnea, agitation b. To assist medical decision maker(s) with: better understanding of current medical conditions; weighing benefits/burdens of medical treatment options; making medical treatment decisions. . Subjective/Interval History Patient remains in the [facility], room 500. Patient was extubated yesterday on 11/18/16 , having increased agitation over night on Precedex. Currently tolerating 4L oxygen via nasal cannula with oxygen saturations in the mid 90s. Status post left-sided thoracentesis on 11/17/16 with 1.2 L of hemorrhagic fluid removed - cytology pending. Pigtail catheter chest tube was placed in left chest for accumulation of left pleural fluid per CXR/US. Patient with increased lethargy and weakness today. He attempts to respond to question but answers unintelligible. Follows commands, moves all 4 extremities. Afebrile. Leukocytosis has resolved. Micrococcus bacteremia on admission. Sputum culture on 11/12/16: + Staph Aureus. Infectious disease continues to follow. Receiving IV antibiotics, ceftriaxone. . Family/friend interactions Spoke with patient's daughter to provide an update on the patient's clinical condition. The patient remains critically ill and may not survive this hospitalization. He is becoming increasingly deconditioned secondary to recurrent respiratory failure. If he does survive this hospitalization, the patient will likely experience continued complications with subsequent readmissions. Patient's daughter, Raissa, states she does not agree with the clinical information she is receiving. She states her father is not weak, but strong and that he wants to go home. Raissa believes her father will get through this hospitalization. She continues to request aggressive measures including tracheostomy and PEG tube placement if necessary. Attempted to contact patient son (Anselmo) via telephone, message left on his voice mail. . Advance Directives Advance Directive Specifics Health Care Surrogate(s): == No written designation of health care surrogacy. == Patient , has on several occasions, verbally stated that he wants BOTH of his children to participate in health care decision making if he is incapacitated to do so. . Documented care wishes: Patient's daughter has indicated during prior hospitalization that her father completed some type of written advanced directives but has not provided copies of these documents to date. . Objective Vital Signs Date Time Temp Pulse Resp B/P Pulse Ox O2 Delivery O2 Flow Rate FiO2 11/19/16 07:53 97 Nasal Cannula 3.00 11/19/16 06:00 64 11/19/16 04:00 63 11/19/16 04:00 97.5 63 26 107/53 98 11/19/16 02:00 80 11/19/16 00:00 73 11/19/16 00:00 98.2 73 40 160/70 96 11/18/16 22:00 73 11/18/16 20:00 97.0 85 39 144/62 95 11/18/16 20:00 85 11/18/16 19:23 96 Nasal Cannula 4.00 11/18/16 18:00 81 11/18/16 16:00 97.9 91 20 116/57 94 11/18/16 16:00 91 11/18/16 14:00 90 Intake & Output 11/19/16 11/19/16 07:00 19:00 Intake Total 409 ml Output Total 575 ml Balance -166 ml Intake Oral 0 ml IV Total 409 ml Output Urine Total 575 ml # Bowel Movements 2 . Physical Exam CONSTITUTIONAL/GENERAL: This is a frail, elderly male patient with mild moderate respiratory distress status post extubation on 11/18/16 TUBES/LINES/DRAINS: Right IJ central line, PIV x2, Vital, podus boots, pigtail chest tube, Vital catheter SKIN: Ecchymoses on upper extremities, multiple scabbed areas. BLE with venous insufficiency changes. HEAD: Atraumatic. Normocephalic. EYES: PERRLA ENT: Hearing grossly normal. Nose without bleeding or purulent drainage. NECK: Trachea midline. CARDIOVASCULAR: Regular rate and rhythm No murmurs, gallops, or rubs. Peripheral pulses symmetric. RESPIRATORY/CHEST: Tolerating 4L oxygen via nasal cannula s/p left pigtail chest tube placement for worsening effusion. Breath sounds diminished with scattered rhonchi in upper lobes bilaterally. GASTROINTESTINAL: Abdomen soft, non-tender, nondistended. No guarding. Bowel sounds present. GENITOURINARY: Without palpable bladder distension. Vital catheter in place. MUSCULOSKELETAL: Extremities without edema. No deformities. LYMPHATICS: No palpable cervical or supraclavicular adenopathy. NEUROLOGICAL: Lethargic. He attempts to respond to question but answers unintelligible. Follows commands, moves all 4 extremities. PSYCHIATRIC: No apparent anxiety/agitation noted. . Diagnostic Tests Laboratory Laboratory Tests Test 11/17/16 11/17/16 11/17/16 11/17/16 04:30 09:52 09:57 11:30 White Blood Count 9.0 TH/MM3 (4.0-11.0) Red Blood Count 3.32 MIL/MM3 (4.50-5.90) Hemoglobin 11.0 GM/DL (13.0-17.0) Hematocrit 32.5 % (39.0-51.0) Mean Corpuscular Volume 98.0 FL (80.0-100.0) Mean Corpuscular Hemoglobin 33.2 PG (27.0-34.0) Mean Corpuscular Hemoglobin 33.8 % Concent (32.0-36.0) Red Cell Distribution Width 15.1 % (11.6-17.2) Platelet Count 116 TH/MM3 (150-450) Mean Platelet Volume 8.4 FL (7.0-11.0) Neutrophils (%) (Auto) 78.7 % (16.0-70.0) Lymphocytes (%) (Auto) 11.3 % (9.0-44.0) Monocytes (%) (Auto) 8.6 % (0.0-8.0) Eosinophils (%) (Auto) 1.3 % (0.0-4.0) Basophils (%) (Auto) 0.1 % (0.0-2.0) Neutrophils # (Auto) 7.1 TH/MM3 (1.8-7.7) Lymphocytes # (Auto) 1.0 TH/MM3 (1.0-4.8) Monocytes # (Auto) 0.8 TH/MM3 (0-0.9) Eosinophils # (Auto) 0.1 TH/MM3 (0-0.4) Basophils # (Auto) 0.0 TH/MM3 (0-0.2) CBC Comment DIFF FINAL Differential Comment Prothrombin Time 19.8 SEC (9.8-11.6) Prothromb Time International 1.7 RATIO Ratio Sodium Level 146 MEQ/L (136-145) Potassium Level 3.9 MEQ/L (3.5-5.1) Chloride Level 109 MEQ/L (98-107) Carbon Dioxide Level 30.8 MEQ/L (21.0-32.0) Anion Gap 6 MEQ/L (5-15) Blood Urea Nitrogen 23 MG/DL (7-18) Creatinine 0.55 MG/DL (0.60-1.30) Estimat Glomerular Filtration 143 ML/MIN Rate (>89) Random Glucose 118 MG/DL (74-106) Calcium Level 8.1 MG/DL (8.5-10.1) Magnesium Level 2.1 MG/DL (1.5-2.5) Total Bilirubin 0.5 MG/DL (0.2-1.0) Aspartate Amino Transf 120 U/L (15-37) (AST/SGOT) Alanine Aminotransferase 140 U/L (12-78) (ALT/SGPT) Alkaline Phosphatase 164 U/L (45-117) Total Protein 5.2 GM/DL (6.4-8.2) Albumin 1.9 GM/DL (3.4-5.0) Blood Type A POSITIVE A POSITIVE Blood Bank Comment Pleural Fluid pH 8.5 Pleural Fluid WBC 2203 /MM3 (0-10) Pleural Fluid RBC 84331 /MM3 (0-0) Pleural Fluid Neutrophils 54 % Pleural Fluid Lymphocytes 32 % Pleural Fluid Monocytes 12 % Pleural Fluid Plasma Cells 1 % Pleural Fluid Histiocytes 1 % Pleural Fluid Total Protein 1.9 GM/DL Pleural Fluid LDH 194 U/L Pleural Fluid Glucose 110 MG/DL Pleural Fluid Amylase 20 U/L Test 11/17/16 11/18/16 11/18/16 11/18/16 17:45 04:00 07:55 12:30 Lactate Dehydrogenase 253 U/L (87-241) Prothrombin Time 18.1 SEC (9.8-11.6) Prothromb Time International 1.6 RATIO Ratio Blood Gas Puncture Site RT RADIAL Blood Gas Patient Temperature 98.6 Blood Gas HCO3 27 mmol/L (22-26) Blood Gas Base Excess 2.5 mmol/L (-2-2) Blood Gas Oxygen Saturation 97 % (90-100) Arterial Blood pH 7.41 (7.380-7.420) Arterial Blood Partial 43 mmHg (38-42) Pressure CO2 Arterial Blood Partial 140 mmHg Pressure O2 (61-120) Arterial Blood Oxygen Content 15.2 Vol % (12.0-20.0) Arterial Blood 1.4 % (0-4) Carboxyhemoglobin Arterial Blood Methemoglobin 0.9 % (0-2) Blood Gas Hemoglobin 11.0 G/DL (12.0-16.0) Oxygen Delivery Device VENTILATOR Blood Gas Ventilator Setting CPAP 5/8PS Blood Gas Inspired Oxygen 45 % Sodium Level 146 MEQ/L (136-145) Potassium Level 4.3 MEQ/L (3.5-5.1) Chloride Level 110 MEQ/L (98-107) Carbon Dioxide Level 30.4 MEQ/L (21.0-32.0) Anion Gap 6 MEQ/L (5-15) Blood Urea Nitrogen 29 MG/DL (7-18) Creatinine 0.71 MG/DL (0.60-1.30) Estimat Glomerular Filtration 106 ML/MIN Rate (>89) Random Glucose 111 MG/DL (74-106) Calcium Level 8.2 MG/DL (8.5-10.1) Total Bilirubin 0.4 MG/DL (0.2-1.0) Aspartate Amino Transf 131 U/L (15-37) (AST/SGOT) Alanine Aminotransferase 143 U/L (12-78) (ALT/SGPT) Alkaline Phosphatase 187 U/L (45-117) Total Protein 5.8 GM/DL (6.4-8.2) Albumin 2.3 GM/DL (3.4-5.0) Test 11/19/16 11/19/16 03:39 10:41 White Blood Count 9.4 TH/MM3 (4.0-11.0) Red Blood Count 3.07 MIL/MM3 (4.50-5.90) Hemoglobin 10.4 GM/DL (13.0-17.0) Hematocrit 30.7 % (39.0-51.0) Mean Corpuscular Volume 100.0 FL (80.0-100.0) Mean Corpuscular Hemoglobin 33.8 PG (27.0-34.0) Mean Corpuscular Hemoglobin 33.8 % Concent (32.0-36.0) Red Cell Distribution Width 15.5 % (11.6-17.2) Platelet Count 129 TH/MM3 (150-450) Mean Platelet Volume 9.2 FL (7.0-11.0) Neutrophils (%) (Auto) 86.7 % (16.0-70.0) Lymphocytes (%) (Auto) 7.6 % (9.0-44.0) Monocytes (%) (Auto) 5.0 % (0.0-8.0) Eosinophils (%) (Auto) 0.5 % (0.0-4.0) Basophils (%) (Auto) 0.2 % (0.0-2.0) Neutrophils # (Auto) 8.2 TH/MM3 (1.8-7.7) Lymphocytes # (Auto) 0.7 TH/MM3 (1.0-4.8) Monocytes # (Auto) 0.5 TH/MM3 (0-0.9) Eosinophils # (Auto) 0.0 TH/MM3 (0-0.4) Basophils # (Auto) 0.0 TH/MM3 (0-0.2) CBC Comment DIFF FINAL Differential Comment Prothrombin Time 14.4 SEC (9.8-11.6) Prothromb Time International 1.3 RATIO Ratio Sodium Level 150 MEQ/L (136-145) Potassium Level 4.1 MEQ/L (3.5-5.1) Chloride Level 112 MEQ/L (98-107) Carbon Dioxide Level 31.9 MEQ/L (21.0-32.0) Anion Gap 6 MEQ/L (5-15) Blood Urea Nitrogen 27 MG/DL (7-18) Creatinine 0.55 MG/DL (0.60-1.30) Estimat Glomerular Filtration 143 ML/MIN Rate (>89) Random Glucose 97 MG/DL (74-106) Calcium Level 8.0 MG/DL (8.5-10.1) Magnesium Level 2.3 MG/DL (1.5-2.5) Total Bilirubin 0.3 MG/DL (0.2-1.0) Aspartate Amino Transf 75 U/L (15-37) (AST/SGOT) Alanine Aminotransferase 108 U/L (12-78) (ALT/SGPT) Alkaline Phosphatase 161 U/L (45-117) Total Protein 5.2 GM/DL (6.4-8.2) Albumin 2.0 GM/DL (3.4-5.0) Pleural Fluid pH 8.5 Pleural Fluid WBC 1271 /MM3 (0-10) Pleural Fluid RBC 62749 /MM3 (0-0) Pleural Fluid Neutrophils 54 % Pleural Fluid Lymphocytes 31 % Pleural Fluid Monocytes 5 % Pleural Fluid Plasma Cells 3 % Pleural Fluid Histiocytes 7 % Pleural Fluid Mesothelial 5 % Cells Pleural Fluid Total Protein 2.2 GM/DL Pleural Fluid LDH 418 U/L Pleural Fluid Glucose 115 MG/DL . Result Diagram: 11/19/16 0339 11/19/16 0339 Microbiology Microbiology Date/Time Procedure Status Source Growth 11/17/16 11:30 Gram Stain - Final Resulted Fluid Pleural Fluid 11/17/16 11:30 Body Fluid Culture - Preliminary Resulted Fluid Pleural Fluid NO GROWTH IN 48 HOURS. 11/17/16 11:30 Acid Fast Stain - Final Resulted Fluid Pleural Fluid NO ACID FAST BACILLI SEEN 11/17/16 11:30 Mycobacterial Culture Resulted Fluid Pleural Fluid Pending 11/17/16 11:30 Fungal Smear - Final Resulted Fluid Pleural Fluid NO FUNGAL ELEMENTS SEEN. 11/17/16 11:30 Fungal Culture Resulted Fluid Pleural Fluid Pending 11/19/16 10:41 Gram Stain Received Fluid Pleural Fluid Pending 11/19/16 10:41 Body Fluid Culture Received Fluid Pleural Fluid Pending . Imaging Last 72 hours Impressions Chest X-Ray 11/19/16 0600 Signed Impressions: Service Date/Time: Saturday, November 19, 2016 02:37 - CONCLUSION: 1. Interval extubation and removal of NG tube. Slight worsening of airspace disease on the left. Cardiomegaly with bilateral effusions. Chaka Campos MD Chest X-Ray 11/19/16 0000 Signed Impressions: Service Date/Time: Saturday, November 19, 2016 09:22 - CONCLUSION: Left-sided chest tube now in place. Left pleural effusion no longer seen. No evidence of pneumothorax. Persistent bilateral lower lung zone pulmonary parenchymal opacity. Mathew Guerrero MD Chest X-Ray 11/18/16 0000 Signed Impressions: Service Date/Time: Friday, November 18, 2016 08:21 - CONCLUSION: Interval improvement. Kun Mendoza MD FACR Chest X-Ray 11/17/16 0600 Signed Impressions: Service Date/Time: Thursday, November 17, 2016 03:05 - CONCLUSION: Unchanged cardiomegaly, bilateral pleural effusions, and bilateral pulmonary infiltrates. Charbel Fuchs Jr., MD Liver Ultrasound 11/17/16 0000 Signed Impressions: Service Date/Time: Thursday, November 17, 2016 15:58 - CONCLUSION: 1. Increased liver echogenicity characteristic of mild fatty infiltration or hepatocellular disease. 2. Trace free fluid in the abdomen. Pleural effusions. Mild gallbladder wall thickening. Chaka Campos MD Chest X-Ray 11/17/16 0000 Signed Impressions: Service Date/Time: Thursday, November 17, 2016 11:20 - CONCLUSION: Given the differences in patient positioning the exam appears slightly improved with respect to the left hemithorax. Stable right pleural effusion and basilar airspace consolidation. Stable left lower lobe atelectasis versus consolidation. Brunilad Arthur MD . Procedures 11/08/16: Intubation 11/08/16: Right IJ central line placement 11/08/16: Right chest tube placement with thoracentesis 11/15/16: Left arterial line removed 11/17/16: Chest tube removed 11/17/16: Thoracentesis. 11/18/16: Extubation 11/19/16: Left pigtail chest tube placement . Assessment and Plan Disease Oriented Problem List: (1) Pleural effusion (2) Congestive heart failure (3) Chronic atrial fibrillation (4) Pneumothorax (5) Hypertension (6) Acute respiratory failure with hypoxia and hypercapnia (7) COPD (chronic obstructive pulmonary disease) (8) Pneumonia (9) Protein-calorie malnutrition, severe Symptom Scale: (1) Dyspnea 0-10 Scale: Unable to quantify Comment: Patient was extubated yesterday on 11/18/16, having increased agitation over night on Precedex. Currently tolerating 4L oxygen via nasal cannula with oxygen saturations in the mid 90s. Status post left-sided thoracentesis on 11/17/16 with 1.2L of hemorrhagic fluid removed - cytology pending. Pigtail catheter chest tube was placed in left chest for accumulation of left pleural fluid per CXR/ US. Remains on IV steroids, antibiotics and diuretics. Sputum culture + staph aureus. . (2) Pain 0-10 Scale: Unable to quantify Comment: Probable causes of pain include dyspnea, infection, invasiveness lines , skin breakdown, immobility, bedbound status etc. Titrating Precedex drip as needed. PRN acetaminophen is available for pain/fever as well. (3) Encephalopathy 0-10 Scale: Unable to quantify Comment: Patient with increased lethargy and weakness today. He attempts to respond to question but answers unintelligible. Follows commands, moves all 4 extremities. Pertinent Non-Medical Issues Psychosocial: Patient is originally from [facility] but has lived in [place] since . 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 He was and , many years ago. He has 2 children. His daughter, Raissa daniels, lives locally and is very involved in the patient's care. The patient also has a son living in [place], but reportedly has not seen him in the last 5 years. The patient does keep in touch. The patient lives alone. His daughter lives a few blocks away and assist the patient with shopping and meal preparation. Spiritual: The patient comes from Hinduism tradition. Per his daughter, alevism and spirituality have not been an important part of his life. Legal: Ethical issues impacting care: No known ethical issues impacting care at this time. Important Contacts Raissa Duncan (daughter) [phone] Anselmo Duncan (son) [phone] Aneesh Walls (friend) [phone] . Prognosis This is an 81-year-old male with an extensive history (decades) of congestive heart failure complicated by underlying COPD, history of alcohol abuse. Patient has been declining since March 2016 particularly with recurrent right pleural effusions. He has required > 5 thoracenteses since that time. He has been living at [facility] since his last discharge from [facility] on 10/20/16. There is known ischemic heart disease and failure may be primarily due to valvular heart disease. There is severe tricuspid regurgitation. Patient There is a reasonable chance he will continue to improve well enough to survive the hospitalization. Based on his history of the last few months, long-term prognosis is not good. Life expectancy is probably in the order of months. Patient would certainly be eligible for hospice services at such time as his goals become mostly comfort oriented. Code Status: Full Code Plan * FULL CODE * Decision making: Patient is currently incapacitated and unable to participate in clarification of medical treatment goals. It is unclear at this time if the patient will ever became this capacity. Per [place] statutes, in the absence of written advanced directives healthcare proxy decision making would fall to the patient's 2 adult children. Patient, has on several occasions during previous hospitalization, verbally stated that he wanted BOTH of his children to participate in health care decision making if he is incapacitated to do so. * GOALS: Aggressive goals * Symptom managementdyspnea: Patient was extubated yesterday on 11/18/16, having increased agitation over night on Precedex. Currently tolerating 4L oxygen via nasal cannula with oxygen saturations in the mid 90s. Status post left-sided thoracentesis on 11/17/16 with 1.2L of hemorrhagic fluid removed - cytology pending. Pigtail catheter chest tube was placed in left chest for accumulation of left pleural fluid per CXR/US. Remains on IV steroids, antibiotics and diuretics. Sputum culture + staph aureus. * Symptom managementencephalopathy: Neurology following, myoclonus has resolved. EEG negative x 3. Patient with increased lethargy and weakness today. He attempts to respond to question but answers unintelligible. Follows commands , moves all 4 extremities. * Symptom managementpain: Probable causes of pain include dyspnea, infection, invasiveness lines, skin breakdown, immobility, bedbound status etc. On Precedex infusion intermittently. PRN acetaminophen is available for pain/fever as well. Palliative care will monitor for s/s nonverbal pain and make recommendations as indicated. * Symptom management: agitation. Patient having increased agitation over night on Precedex. PRN Hadol 3mg IV q4 hours for agitation. If Haldol is ineffective in managing patient's agitation, low dose lorazepam (1mg IV q4 hours PRN) is recommended as adjunctive therapy. * Spoke with patient's daughter to provide an update on the patient's clinical condition. The patient remains critically ill and may not survive this hospitalization. He is becoming increasingly deconditioned secondary to recurrent respiratory failure. If he does survive this hospitalization, the patient will likely experience continued complications with subsequent readmissions. Patient's daughter, Raissa, states she does not agree with the clinical information she is receiving. She states her father is not weak, but strong and that he wants to go home. Raissa believes her father will get through this hospitalization. She continues to request aggressive measures including tracheostomy and PEG tube placement if necessary. Attempted to contact patient son (Anselmo) via telephone, message left on his voice mail. * Palliative care will continue to follow this patient throughout his hospitalization to establish trust, assist with symptom management and clarification of medical treatment goals. . Sujatha Elliott Nov 19, 2016 14:28
[2016-11-19] MEDS ORDERED: WARFARIN SOD 5 MG TAB PO SCH (16:00)
[2016-11-20] VITALS (14 sets, daily range): BP systolic 101–167; BP diastolic 53–75; PULSE 67–105; RESP 19–42; TEMP 96–98; O2SAT 89–100
[2016-11-20] MEDS: HALOPERIDOL LACTATE 5 MG/ML AMP IV PRN (00:18)
[2016-11-20] MEDS: PHENYTOIN INJ 100 MG/2 ML VIAL IV PUSH SCH ×3 (00:18→18:58)
[2016-11-20] MEDS: DEXTROSE 5% IN WATE 1000ML INJ 1,000 ML IV SCH (02:54)
[2016-11-20 04:32] LABS: INTERNATIONAL NORMALIZED RATIO 1.6 RATIO; PROTHROMBIN TIME - PATIENT 17.6 SEC (9.8-11.6)
[2016-11-20] MEDS: INSULIN NovoLIN REGULAR SUPPLEMENTAL SCALE SQ SCH ×3 (06:00→18:00)
[2016-11-20] MEDS: RESP: ALBUTEROL 2.5 MG/IPRATROPIUM 0.5 MG NEB (SCH) INH ×3 (07:23→23:16)
[2016-11-20] MEDS: CHLORHEXIDINE 0.12% (ORAL KIT) 15 ML CUP MT SCH ×2 (08:00→20:00)
[2016-11-20] MEDS: BUMETANIDE INJ 1 MG/4 ML VIAL IV PUSH SCH ×2 (08:31→18:57)
[2016-11-20] MEDS: methylPREDNISolone SOD SUCC 40 MG/1 ML VIAL IV PUSH SCH (08:31)
[2016-11-20] MEDS: CAPTOPRIL 50 MG TAB PO SCH ×3 (08:32→18:59)
[2016-11-20] MEDS: ATENOLOL 50 MG TAB PO SCH ×2 (08:32→21:16)
[2016-11-20] MEDS: POTASSIUM CHLORIDE 20 MEQ PWD PACKET NG SCH ×2 (08:32→21:00)
[2016-11-20] MEDS: SODIUM CHLORIDE 0.9% FLUSH 5 ML FLUSH IVF SCH (08:34)
[2016-11-20] MEDS: SODIUM CHLORIDE 0.9% FLUSH 5 ML FLUSH FLUSH SCH ×2 (08:35→21:00)
--- NOTE | 2016-11-20 12:24 | HHI.PR ---
Subjective Remarks Had a left thoracentesis and now has a Chest tube on the left. Extubated and anxious.On O2 2l.Off Bipap and refused it Objective Vital Signs Date Time Temp Pulse Resp B/P Pulse Ox O2 Delivery O2 Flow Rate FiO2 11/20/16 10:00 73 11/20/16 08:00 75 11/20/16 08:00 97.7 75 22 101/53 89 11/20/16 07:24 98 Nasal Cannula 2.00 11/20/16 06:00 67 11/20/16 04:00 96.0 67 19 105/53 100 11/20/16 04:00 67 11/20/16 02:00 73 11/20/16 00:33 96 Nasal Cannula 3.00 11/20/16 00:00 81 11/20/16 00:00 98.0 81 42 167/75 100 11/20/16 00:00 95 30 11/19/16 22:00 79 11/19/16 20:00 98.2 87 27 169/72 93 11/19/16 20:00 87 11/19/16 19:24 100 Nasal Cannula 3.00 11/19/16 18:00 82 11/19/16 16:00 97.9 73 28 117/59 100 11/19/16 16:00 73 11/19/16 14:00 71 I/O 11/19/16 11/19/16 11/19/16 11/20/16 11/20/16 11/20/16 07:00 15:00 23:00 07:00 15:00 23:00 Intake Total 257 ml 477 ml 799 ml 768 ml Output Total 100 ml 2480 ml 1200 ml 275 ml Balance 157 ml -2003 ml -401 ml 493 ml Intake Oral 0 ml 200 ml 240 ml 0 ml IV Total 257 ml 277 ml 559 ml 768 ml Output Urine Total 100 ml 1650 ml 1200 ml 275 ml Chest Tube Drainage Total 830 ml # Bowel Movements 1 0 0 1 Result Diagram: 11/19/1633811/19/16338 Objective Remarks GENERAL: Elderly male awake and anxious . On o2 HEENT: Pupils are equal and react to light. Oral mucosa, nasal mucosa normal. NECK: Supple. JVP not raised. CHEST: Occ rales at the bases,and wheeze. Decreased breath sounds at bases CARDIOVASCULAR: S1, S2 normal. ABDOMEN: Benign.No mass. EXTREMITIES: No edema. Neuro, Weak Legs Assessment and Plan Assessment and Plan IMPRESSION 1. Ventilator dependent respiratory failure. 2. Pleural effusions status post chest tube placement. 3. Congestive heart failure. 4. Atrial fibrillation. 5. Pulmonary HTN Plan : 1. O2 at 2 L.N/C 2. Nebs qid , duoneb. 3. Continue diuretics. 4. Chest tube to drainage 5. CBC ,BMP in am. 6. Sildenafil 20 mg tid 7. D/C Bipap. 8. D/C solumedrol and add Prednisone 10 mg bid Paulo Rooney MD Nov 20, 2016 12:24
--- NOTE | 2016-11-20 12:36 | HHI.CCPN ---
Subjective Remarks/Hospital Course This is an 81-year-old male who has had multiple readmissions over the past few months for a recurrent right-sided pleural effusion. [facility] with recurrent right-sided pleural effusion as well as hypoxia and somnolence. He was found to have significant hypercarbia and a PCO2 in the 90s. He was initially placed on BiPAP and admitted to the [facility]. He became more somnolent and his oxygen saturation began to decline. At this point a critical care medicine is consulted to evaluate and manage his hypercarbic respiratory failure. Because he is failed his trial of noninvasive positive pressure ventilation, we will move towards intubating the patient. I evaluated the patient and he is essentially unresponsive and obtunded and only minimally withdrawing to pain. I can obtain no additional history from the patient. Subjective: 11/09: Early this a.m. at approximately 06:30 the patient was noted to have a grand mal seizure lasting approximately 60 seconds followed by a small tonic- clonic seizure lasting 30 seconds involving the lower extremities. The patient received Ativan 2 mg with cessation of seizure activity. Stat CT of the brain without contrast was obtained showed no acute abnormality. EEG was obtained previously awaiting results. Prior to the event the patient was noted to be on a fentanyl infusion at approximately 250 mcg/h. The patient was noted to be a GCS 10T, squeezing my hand. 11/10: The patient was noted to have multiple seizures requiring interventions with IV Ativan. Described as tonic-clonic in nature with eyes rolled back in the head. Gross motor movement shaking 4 extremities. Today the patient was noted to have a positive growth and blood cultures. WBC count elevated. Ammonia level was drawn less than 10, lactate was noted to be 2.2 this morning. Pleural fluid culture negative growth to date. 11/11: On stimulation patient continues to have jerking movement of all extremities. EEG negative for seizures. Check MRI today. Dr. Kirkland is neurology. Remains on 2 mcg/min of Levophed 11/12: Per neurologist, patient had witnessed with tonic convulsions started over right arm and propagated to left UE and both LE with fluttering of the eyes and upward gaze.Loaded with Dilantin iv infusion and a maintenance dose of 100mg Q8h, Stat EEG negative for seizures. Its unclear to me whether it is seizure or myoclonus 11/13: No change in neuro status. Continues to have jerking movements off lower extremity when stimulated. EEG 2 have been negative for seizures. We'll hold sedation for neuro exam 11/14: On sedation hold opens eyes. Appears to follow commands and upper extremity. Still has some tremulousness of the extremities. Remains off pressors 11/15: Remains on Precedex intermittently following commands for RN. Placed on CPAP tolerating well. No evidence of myoclonus now 11/16: On 1.1 mcg/kg/hr of Precedex. No spontaneous eye opening but moves all extremities spontaneously. Not following commands will reduce Precedex, and start weaning trials 11/17: Mental status significantly improved patient following commands on Precedex. However chest tube was dislodged yesterday evening, now has bilateral pleural effusions left is more than right, appears large. Vent day 10 11/18: Off Precedex following commands upper extremities. But continues to fail C Pap trials due to tachypnea and low tidal volumes. Status post large-volume left thoracentesis yesterday with 1.2 L of old blood-tinged fluid removed. 11/19: Overnight agitated, requiring maximum dose Precedex 1.4 mcg per kg per hr and restraints. Currently heavily sedated. Chest x-ray shows increasing left effusion confirmed by ultrasound. We'll proceed with left pigtail catheter after consent. Continue to hold Coumadin due to hemorrhagic effusion 11/20: Left pigtail chest tube placed yesterday with a 30 mL output. Mentation improving now oriented follows commands. Requiring oxygen by nasal cannula. Slight increase in right effusion seen on chest x-ray Objective Vital Signs Date Time Temp Pulse Resp B/P Pulse Ox O2 Delivery O2 Flow Rate FiO2 11/20/16 10:00 73 11/20/16 08:00 97.7 22 101/53 89 11/20/16 07:24 Nasal Cannula 2.00 11/20/16 00:00 30 Intake and Output 11/19/16 11/19/16 11/20/16 08:00 16:00 00:00 Intake Total 257 ml 477 ml 799 ml Output Total 100 ml 2480 ml 1200 ml Balance 157 ml -2003 ml -401 ml Result Diagram: 11/19/16 0339 11/19/16338 Imaging Last [address] 11/07/161955 Signed Impressions: Service Date/Time: October 20:38 - CONCLUSION: No acute intracranial abnormality demonstrated. Chronic white matter and old ischemic changes. Dhruv Foster MD Chest X-Ray 11/07/161955 Signed Impressions: Service Date/Time: October 20:54 - CONCLUSION: Worsening bilateral airspace disease and pleural effusions. Dhruv Foster MD Objective Remarks GENERAL: This is a elderly critically ill-appearing cachectic male, off all sedation HEENT: Normocephalic. Atraumatic. Pupils equal, round, reactive. NECK: Trachea is midline. No JVD. On NC oxygen CHEST: Right sided chest tube dislodged 11/16/16. Distant breath sounds. Air entry diminished bilaterally. Moderate to large L effusion-s/p L chest tube 11/19 CARDIOVASCULAR: Normal rate, regular rhythm. No appreciable murmurs. ABDOMEN: After, nontender, nondistended. No guarding. MUSCULOSKELETAL: 1+ peripheral edema. Distal pulses 2+ NEUROLOGICAL: Alert awake and oriented. Moves all 4 extremities Urinary Catheter: Yes Assessment to: Continue Date of Insertion: Nov 08, 2016 Side: Right Location: Internal, Jugular A/P Assessment and Plan Assessment: This is an 81-year-old male with history of prior recurrent right pleural effusions and COPD now presents with acute hypercarbic and hypoxic respiratory failure which has failed noninvasive positive pressure ventilation. Intubated and placed on mechanical ventilation. Covering COPD exacerbation, as well as healthcare associated pneumonia given his history of being on Levaquin at his [facility]. He remains critically ill. Not sure that we will be able to get him through this hospitalization, and his recurrent respiratory failures are clearly making him more deconditioned every time he comes in the hospital. Despite this, daughter continues to request aggressive measures. Extubated 11/18/16 Plan by systems: Neurologic: Myoclonus-resolved Agitated delirium-resolved CO2 narcosis Metabolic encephalopathy Mild dementia -DC Precedex. Use Ativan PRN for breakthrough seizures /myoclonus -EEG negative 11/10/15, 11/11/16 (moderate to severe encephalopathy, no seizure) -11/08 CT of the brain-no acute abnormality. 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 Question of amyloid -Neuro Exam continues to improve almost to baseline now Respiratory: Acute hypercarbic and hypoxic respiratory failure-extubated Recurrent right pleural effusion s/p chest tube placement-dislodged 11/17 Right pneumothorax-resolved Large hemorrhagic left pleural effusion status post thoracentesis 11/17/16, pigtail chest tube 11/19/16 Healthcare associated pneumonia COPD exacerbation Methylprednisolone 40 [id number] to prednisone today, DuoNeb every 8 and every 2 when necessary --Pulmonary Dr. Bone, plan was pleurodesis prior to removal of R chest tube, but accidentally dislodged Head of bed at 30, wean FiO2 for goal SPO2 greater than 90% Extubated (11/18/16) on Vent day 11. --Status post left thoracentesis 11/17/16 with 1.2 L of hemorrhagic fluid removed. CXR/US shows reaccumulation of left pleural fluid. Placed pigtail chest tube at 11/19/1611/08 S/P CT guided IR drainage of recurrent right posterior pleural effusion, unable to perform pleurodesis, accidentally dislodged -- MAy need R pig tail chest tube Antibiotics as described below Cardiovascular: Severe pulmonary hypertension (PASP 85 on Echo 10/08/16, repeat echo 11/19/16 PASP was 47) A. fib RVR Hypertension Moderate to severe TR Maintain map greater than 60-65 Resumed home antihypertensives (captopril and atenolol 11/14/16) --Monitor CVP --Repeat 2d echo 11/19/16 PASP was 47 compared to 85 on 10/18/16. Hold off Revatio Renal: Hypernatremia Maintain Vital for accurate --Strict I/Os --D5W at 100 mL per hour to correct hypernatremia FEN/GI: Acute intravascular volume overload Acute protein calorie malnutritionsevere Metabolic alkalosis Heart healthy and vegan diet. ICU electrolyte protocol --Started scheduled Bumex 1 mg IV every 12, 11/17, free water replacement with D5W Heme/ID: Healthcare associated pneumonia, staph aureus in sputum Leukocytosis CBC CMP today - ID consulted by Dr. Gaspar. Dr. Topete following Does not meet transfusion triggers at this time Currently on ceftriaxone 2 g IV every 24 hours per ID (Vanc and cefepime DCd ) 11/08 blood -micrococcus 08/28 possible contaminant - Urine cultures-NGTD --Sputum cx 11/12/16 with staph aureus Endocrine: Hyperglycemia of critical illness -- SSI, medium scale, every 6 hours Prophylaxis: GI Prophylaxis Protonix 40 mg IV every 24 hours DVT Prophylaxis --SCDs Patient was Coumadin, hold due to multiple procedures, and also hemorrhagic left pleural effusion Lines: Peripheral IVsx 2. central line Vital Dispo: Discussed medical update with daughter who desires aggressive treatment at this time. spoke with [employer]VIS[employer]ITCHING at bedside. palliative care following This patient remains critically ill with one or more organ systems which are or may become a threat to life. I have spent in excess of 32 minutes discontinuously in the care and management of this patient. This time is exclusive of procedures, and includes, but is not limited to, evaluation of the patient, review of the medical record, discussions with family, consultants, nursing staff, or respiratory therapy, and documentation in the medical record. Updated daughter at bedside on 11/17/16. She wants to continue aggressive care and proceed with tracheostomy and PEG tube if unable to wean Discussed with Dr. Bone. He will talk to the daughter again about addressing CODE STATUS and will recommend DNR Rebecca Bartlett MD Nov 20, 2016 12:36 Rebecca Bartlett MD Nov 20, 2016 12:36
[2016-11-20 13:11] LABS: ALT (GPT) 123 U/L (12-78); ANION GAP 7 MEQ/L (5-15); AST (GOT) 84 U/L (15-37); BICARBONATE 30.6 MEQ/L (21.0-32.0); BLOOD UREA NITROGEN 18 MG/DL (7-18); CHLORIDE 101 MEQ/L (98-107); GLOMERULAR FILTRATION RATE 125 ML/MIN (>89); POTASSIUM 4.7 MEQ/L (3.5-5.1); SODIUM (NA) 139 MEQ/L (136-145)
[2016-11-20 13:13] LABS: ALKALINE PHOSPHATASE 191 U/L (45-117); TOTAL BILIRUBIN ADULT 0.4 MG/DL (0.2-1.0)
--- NOTE | 2016-11-20 13:48 | RADRPT ---
EXAM DATE/TIME: 11/20/2016 11:11 [facility] COMPARISON: CHEST SINGLE AP, November 19, 2016, 9:22. INDICATIONS : Respiratory Disease. MEDICAL HISTORY : Stroke. Congestive heart failure. Chronic obstructive pulmonary disease SURGICAL HISTORY : None. ENCOUNTER: Subsequent ACUITY: 2 weeks PAIN SCORE: 0/10 LOCATION: Bilateral chest FINDINGS: The cardiac silhouette is enlarged in transverse diameter. There are findings of congestive heart hodan lure with interstitial and alveolar opacity bilaterally. The findings have worsened when compared wit h the prior examination. There is left lower lobe atelectasis versus pneumonia. CONCLUSION: 1. Cardiomegaly and findings of congestive heart failure. The findings have worsened when compared wi th the prior examination. Jimi Chavez MD on November 20, 2016 at 13:46 Board Certified Radiologist. This report was verified electronically.
--- NOTE | 2016-11-20 16:52 | HHI.HCPN ---
Reason for visit a. To assist with evaluation and management of symptoms including: pain, dyspnea b. To assist medical decision maker(s) with: better understanding of current medical conditions; weighing benefits/burdens of medical treatment options; making medical treatment decisions. . Subjective/Interval History [place] [facility] [place] Patient is more alert today, answering questions. Currently tolerating 3L oxygen via nasal cannula with oxygen saturations in the mid to high 90s. Status post pigtail catheter chest tube was placed in left chest for accumulation of left pleural fluid and thoracentesis on 11/17/16 with 1.2 L of hemorrhagic fluid removed - cytology negative for malignant cells. Cultures negative 24 hours. Afebrile. Leukocytosis resolved. Micrococcus bacteremia on admission. Sputum culture on 11/12/16: + Staph Aureus. Infectious disease continues to follow. Receiving IV antibiotics, ceftriaxone. Patient passed swallow evaluation today 11/20/16. Recommendations for your consistency diet - vegan and thin consistency liquids. Speech therapy will continue to follow patient. . . Advance Directives Advance Directive Specifics Health Care Surrogate(s): == No written designation of health care surrogacy. == Patient , has on several occasions, verbally stated that he wants BOTH of his children to participate in health care decision making if he is incapacitated to do so. . Documented care wishes: Patient's daughter has indicated during prior hospitalization that her father completed some type of written advanced directives but has not provided copies of these documents to date. . Objective Vital Signs Date Time Temp Pulse Resp B/P Pulse Ox O2 Delivery O2 Flow Rate FiO2 11/20/16 10:00 73 11/20/16 08:00 75 11/20/16 08:00 97.7 75 22 101/53 89 11/20/16 07:24 98 Nasal Cannula 2.00 11/20/16 06:00 67 11/20/16 04:00 96.0 67 19 105/53 100 11/20/16 04:00 67 11/20/16 02:00 73 11/20/16 00:33 96 Nasal Cannula 3.00 11/20/16 00:00 81 11/20/16 00:00 98.0 81 42 167/75 100 11/20/16 00:00 95 30 11/19/16 22:00 79 11/19/16 20:00 98.2 87 27 169/72 93 11/19/16 20:00 87 11/19/16 19:24 100 Nasal Cannula 3.00 11/19/16 18:00 82 Intake & Output 11/20/16 11/20/16 07:00 19:00 Intake Total 1567 ml 770 ml Output Total 1475 ml 1250 ml Balance 92 ml -480 ml Intake Oral 240 ml 480 ml IV Total 1327 ml 290 ml Output Urine Total 1475 ml 1250 ml # Bowel Movements 1 1 . Physical Exam CONSTITUTIONAL/GENERAL: This is a frail, elderly male patient with mild moderate respiratory distress status post extubation on 11/18/16 TUBES/LINES/DRAINS: Right IJ central line, PIV x2, Vital, podus boots, pigtail chest tube, Vital catheter SKIN: Ecchymoses on upper extremities, multiple scabbed areas. BLE with venous insufficiency changes. HEAD: Atraumatic. Normocephalic. EYES: PERRLA ENT: Hearing grossly normal. Nose without bleeding or purulent drainage. NECK: Trachea midline. CARDIOVASCULAR: Regular rate and rhythm No murmurs, gallops, or rubs. Peripheral pulses symmetric. RESPIRATORY/CHEST: Tolerating 3L oxygen via nasal cannula s/p left pigtail chest tube placement for worsening effusion. Breath sounds diminished bilaterally. GASTROINTESTINAL: Abdomen soft, non-tender, nondistended. No guarding. Bowel sounds present. GENITOURINARY: Without palpable bladder distension. Vital catheter in place. MUSCULOSKELETAL: Extremities without edema. No deformities. LYMPHATICS: No palpable cervical or supraclavicular adenopathy. NEUROLOGICAL: Awake and alert, smiling. Able to answer questions, make needs known. Follows commands. PSYCHIATRIC: No apparent anxiety/agitation noted. . Diagnostic Tests Laboratory Laboratory Tests Test 11/17/16 11/18/16 11/18/16 11/18/16 17:45 04:00 07:55 12:30 Lactate Dehydrogenase 253 U/L (87-241) Prothrombin Time 18.1 SEC (9.8-11.6) Prothromb Time International 1.6 RATIO Ratio Blood Gas Puncture Site RT RADIAL Blood Gas Patient Temperature 98.6 Blood Gas HCO3 27 mmol/L (22-26) Blood Gas Base Excess 2.5 mmol/L (-2-2) Blood Gas Oxygen Saturation 97 % (90-100) Arterial Blood pH 7.41 (7.380-7.420) Arterial Blood Partial 43 mmHg (38-42) Pressure CO2 Arterial Blood Partial 140 mmHg Pressure O2 (61-120) Arterial Blood Oxygen Content 15.2 Vol % (12.0-20.0) Arterial Blood 1.4 % (0-4) Carboxyhemoglobin Arterial Blood Methemoglobin 0.9 % (0-2) Blood Gas Hemoglobin 11.0 G/DL (12.0-16.0) Oxygen Delivery Device VENTILATOR Blood Gas Ventilator Setting CPAP 5/8PS Blood Gas Inspired Oxygen 45 % Sodium Level 146 MEQ/L (136-145) Potassium Level 4.3 MEQ/L (3.5-5.1) Chloride Level 110 MEQ/L (98-107) Carbon Dioxide Level 30.4 MEQ/L (21.0-32.0) Anion Gap 6 MEQ/L (5-15) Blood Urea Nitrogen 29 MG/DL (7-18) Creatinine 0.71 MG/DL (0.60-1.30) Estimat Glomerular Filtration 106 ML/MIN Rate (>89) Random Glucose 111 MG/DL (74-106) Calcium Level 8.2 MG/DL (8.5-10.1) Total Bilirubin 0.4 MG/DL (0.2-1.0) Aspartate Amino Transf 131 U/L (15-37) (AST/SGOT) Alanine Aminotransferase 143 U/L (12-78) (ALT/SGPT) Alkaline Phosphatase 187 U/L (45-117) Total Protein 5.8 GM/DL (6.4-8.2) Albumin 2.3 GM/DL (3.4-5.0) Test 11/19/16 11/19/16 11/20/16 11/20/16 03:39 10:41 03:12 12:09 White Blood Count 9.4 TH/MM3 (4.0-11.0) Red Blood Count 3.07 MIL/MM3 (4.50-5.90) Hemoglobin 10.4 GM/DL (13.0-17.0) Hematocrit 30.7 % (39.0-51.0) Mean Corpuscular Volume 100.0 FL (80.0-100.0) Mean Corpuscular Hemoglobin 33.8 PG (27.0-34.0) Mean Corpuscular Hemoglobin 33.8 % Concent (32.0-36.0) Red Cell Distribution Width 15.5 % (11.6-17.2) Platelet Count 129 TH/MM3 (150-450) Mean Platelet Volume 9.2 FL (7.0-11.0) Neutrophils (%) (Auto) 86.7 % (16.0-70.0) Lymphocytes (%) (Auto) 7.6 % (9.0-44.0) Monocytes (%) (Auto) 5.0 % (0.0-8.0) Eosinophils (%) (Auto) 0.5 % (0.0-4.0) Basophils (%) (Auto) 0.2 % (0.0-2.0) Neutrophils # (Auto) 8.2 TH/MM3 (1.8-7.7) Lymphocytes # (Auto) 0.7 TH/MM3 (1.0-4.8) Monocytes # (Auto) 0.5 TH/MM3 (0-0.9) Eosinophils # (Auto) 0.0 TH/MM3 (0-0.4) Basophils # (Auto) 0.0 TH/MM3 (0-0.2) CBC Comment DIFF FINAL Differential Comment Prothrombin Time 14.4 SEC 17.6 SEC (9.8-11.6) (9.8-11.6) Prothromb Time International 1.3 RATIO 1.6 RATIO Ratio Sodium Level 150 MEQ/L 139 MEQ/L (136-145) (136-145) Potassium Level 4.1 MEQ/L 4.7 MEQ/L (3.5-5.1) (3.5-5.1) Chloride Level 112 MEQ/L 101 MEQ/L (98-107) (98-107) Carbon Dioxide Level 31.9 MEQ/L 30.6 MEQ/L (21.0-32.0) (21.0-32.0) Anion Gap 6 MEQ/L (5-15) 7 MEQ/L (5-15) Blood Urea Nitrogen 27 MG/DL (7-18) 18 MG/DL (7-18) Creatinine 0.55 MG/DL 0.62 MG/DL (0.60-1.30) (0.60-1.30) Estimat Glomerular Filtration 143 ML/MIN 125 ML/MIN Rate (>89) (>89) Random Glucose 97 MG/DL 100 MG/DL (74-106) (74-106) Calcium Level 8.0 MG/DL 8.4 MG/DL (8.5-10.1) (8.5-10.1) Magnesium Level 2.3 MG/DL (1.5-2.5) Total Bilirubin 0.3 MG/DL 0.4 MG/DL (0.2-1.0) (0.2-1.0) Aspartate Amino Transf 75 U/L (15-37) 84 U/L (15-37) (AST/SGOT) Alanine Aminotransferase 108 U/L (12-78) 123 U/L (12-78) (ALT/SGPT) Alkaline Phosphatase 161 U/L 191 U/L (45-117) (45-117) Total Protein 5.2 GM/DL 6.3 GM/DL (6.4-8.2) (6.4-8.2) Albumin 2.0 GM/DL 2.6 GM/DL (3.4-5.0) (3.4-5.0) Pleural Fluid pH 8.5 Pleural Fluid WBC 1271 /MM3 (0-10) Pleural Fluid RBC 35691 /MM3 (0-0) Pleural Fluid Neutrophils 54 % Pleural Fluid Lymphocytes 31 % Pleural Fluid Monocytes 5 % Pleural Fluid Plasma Cells 3 % Pleural Fluid Histiocytes 7 % Pleural Fluid Mesothelial 5 % Cells Pleural Fluid Total Protein 2.2 GM/DL Pleural Fluid LDH 418 U/L Pleural Fluid Glucose 115 MG/DL . Result Diagram: 11/19/16 0339 11/20/16 1209 Microbiology Microbiology Date/Time Procedure Status Source Growth 11/19/16 10:41 Gram Stain - Final Resulted Fluid Pleural Fluid 11/19/16 10:41 Body Fluid Culture - Preliminary Resulted Fluid Pleural Fluid NO GROWTH IN 24 HOURS. . Imaging Last 72 hours Impressions Chest X-Ray 11/20/16 0000 Signed Impressions: Service Date/Time: Sunday, November 20, 2016 11:11 - CONCLUSION: 1. Cardiomegaly and findings of congestive heart failure. The findings have worsened when compared with the prior examination. Jimi Chavez MD Chest X-Ray 11/19/16 0600 Signed Impressions: Service Date/Time: Saturday, November 19, 2016 02:37 - CONCLUSION: 1. Interval extubation and removal of NG tube. Slight worsening of airspace disease on the left. Cardiomegaly with bilateral effusions. Chaka Campos MD Chest X-Ray 11/19/16 0000 Signed Impressions: Service Date/Time: Saturday, November 19, 2016 09:22 - CONCLUSION: Left-sided chest tube now in place. Left pleural effusion no longer seen. No evidence of pneumothorax. Persistent bilateral lower lung zone pulmonary parenchymal opacity. Mathew Guerrero MD Chest X-Ray 11/18/16 0000 Signed Impressions: Service Date/Time: Friday, November 18, 2016 08:21 - CONCLUSION: Interval improvement. Kun Mendoza MD FACR . Procedures 11/08/16: Intubation 11/08/16: Right IJ central line placement 11/08/16: Right chest tube placement with thoracentesis 11/15/16: Left arterial line removed 11/17/16: Chest tube removed 11/17/16: Thoracentesis. 11/18/16: Extubation 11/19/16: Left pigtail chest tube placement . Assessment and Plan Disease Oriented Problem List: (1) Pleural effusion (2) Congestive heart failure (3) Chronic atrial fibrillation (4) Pneumothorax (5) Hypertension (6) Acute respiratory failure with hypoxia and hypercapnia (7) COPD (chronic obstructive pulmonary disease) (8) Pneumonia (9) Protein-calorie malnutrition, severe Symptom Scale: (1) Dyspnea 0-10 Scale: Unable to quantify Comment: Patient was extubated on 11/18/16. Currently tolerating 4L oxygen via nasal cannula with oxygen saturations in the mid 90s. Status post pigtail chest tube placement for reaccumulation of left-sided effusion and thoracentesis left- sided thoracentesis on 11/17/16 with 1.2L of hemorrhagic fluid removed - cytology negative for malignancy. Sputum culture on 11/12/16: + staph aureus. . (2) Pain 0-10 Scale: Unable to quantify Comment: Probable causes of pain include dyspnea, infection, invasiveness lines , skin breakdown, immobility, bedbound status etc. Titrating Precedex drip as needed. PRN acetaminophen is available for pain/fever as well. Pertinent Non-Medical Issues Psychosocial: Patient is originally from [facility] but has lived in [place] since . 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 He was and , many years ago. He has 2 children. His daughter, Raissa daniels, lives locally and is very involved in the patient's care. The patient also has a son living in [place], but reportedly has not seen him in the last 5 years. The patient does keep in touch. The patient lives alone. His daughter lives a few blocks away and assist the patient with shopping and meal preparation. Spiritual: The patient comes from [employer]. Per his daughter, yazidi and spirituality have not been an important part of his life. Legal: Ethical issues impacting care: No known ethical issues impacting care at this time. Important Contacts Raissa Duncan (daughter) [phone] Anselmo Duncan (son) [phone] Aneesh Walls (friend) [phone] . Prognosis This is an 81-year-old male with an extensive history (decades) of congestive heart failure complicated by underlying COPD, history of alcohol abuse. Patient has been declining since March 2016 particularly with recurrent right pleural effusions. He has required > 5 thoracenteses since that time. He has been living at [facility] since his [facility] discharge from [facility] on 10/20/16. There is known ischemic heart disease and failure may be primarily due to valvular heart disease. There is severe tricuspid regurgitation. Patient There is a reasonable chance he will continue to improve well enough to survive the hospitalization. Based on his history of the last few months, long-term prognosis is not good. Life expectancy is probably in the order of months. Patient would certainly be eligible for hospice services at such time as his goals become mostly comfort oriented. Code Status: Full Code Plan * FULL CODE * Decision making: Patient is currently incapacitated and unable to participate in clarification of medical treatment goals. It is unclear at this time if the patient will ever became this capacity. Per [place] statutes, in the absence of written advanced directives healthcare proxy decision making would fall to the patient's 2 adult children. Patient, has on several occasions during previous hospitalization, verbally stated that he wanted BOTH of his children to participate in health care decision making if he is incapacitated to do so. * GOALS: Aggressive goals * Symptom managementdyspnea: Patient was extubated on 11/18/16. Currently tolerating 4L oxygen via nasal cannula with oxygen saturations in the mid 90s. Status post pigtail chest tube placement for reaccumulation of left-sided effusion and thoracentesis left-sided thoracentesis on 11/17/16 with 1.2L of hemorrhagic fluid removed - cytology negative for malignancy. Sputum culture on 11/12/16: + staph aureus. * Symptom managementpain: Probable causes of pain include dyspnea, infection, invasiveness lines, skin breakdown, immobility, bedbound status etc. PRN acetaminophen is available for pain/fever as well. Palliative care will monitor for s/s nonverbal pain and make recommendations as indicated. * Palliative care will continue to follow this patient throughout his hospitalization to establish trust, assist with symptom management and clarification of medical treatment goals. . Attestation To help prompt me to consider important information that might be impacting today's encounter and assessment, information from prior notes written by myself or my colleagues may have been "brought forward" into today's note. My signature on this note, however, is an attestation that I personally performed the exam, history, and/or decision-making noted today, and, unless otherwise indicated, the interactions with patient, family, and staff as well as the review of records all occurred today. I also attest that the listed assessment and stated plan reflect my best clinical judgment today based on the combination of historical information, prior notes, and today's exam/ interactions. When time spent is documented, it refers only to time spent today by the signer, or if indicated, combined time spent today by collaborating physician/nurse practitioner. . Sjuatha Elliott Nov 20, 2016 16:52
[2016-11-20 20:49] LABS: C. DIFF EPI 027 PRESUMPTIVE NEGATIVE (NEGATIVE); C. DIFF TOXIN PCR NEGATIVE (NEGATIVE)
[2016-11-20] MEDS: predniSONE 10 MG TAB PO SCH (21:16)
[2016-11-20] MEDS: hydrALAZINE HCL 20 MG/ML VIAL IV PUSH PRN (22:19)
[2016-11-21] VITALS (14 sets, daily range): BP systolic 97–157; BP diastolic 55–70; PULSE 68–107; RESP 23–32; TEMP 96–98.7; O2SAT 95–100
[2016-11-21] MEDS: PHENYTOIN INJ 100 MG/2 ML VIAL IV PUSH SCH ×2 (00:46→08:10)
[2016-11-21] MEDS: LORazepam 2 MG/ML VIAL IV PUSH PRN (00:47)
[2016-11-21 04:07] LABS: AUTOMATED NEUTROPHIL # 15.4 TH/MM3 (1.8-7.7); BASOPHIL # 0.1 TH/MM3 (0-0.2); BASOPHIL % 0.6 % (0.0-2.0); EOSINOPHIL # 0.1 TH/MM3 (0-0.4); EOSINOPHIL % 0.5 % (0.0-4.0); LYMPH % 5.6 % (9.0-44.0); MEAN CELL VOLUME 98.1 FL (80.0-100.0); MEAN CORPUSCULAR HEMOGLOBIN 32.9 PG (27.0-34.0); MEAN CORPUSCULAR HGB CONC 33.6 % (32.0-36.0); MONO % 5.1 % (0.0-8.0); NEUT % 88.2 % (16.0-70.0); PLATELET COUNT 185 TH/MM3 (150-450); RED BLOOD COUNT 3.67 MIL/MM3 (4.50-5.90); RED CELL DISTRIBUTION WIDTH 15.1 % (11.6-17.2); WHITE BLOOD COUNT 17.4 TH/MM3 (4.0-11.0)
[2016-11-21 04:08] LABS: HEMO FLAGS AUTO DIFF
[2016-11-21 04:15] LABS: INTERNATIONAL NORMALIZED RATIO 1.4 RATIO; PROTHROMBIN TIME - PATIENT 15.9 SEC (9.8-11.6)
[2016-11-21] MEDS: HALOPERIDOL LACTATE 5 MG/ML AMP IV PRN (04:31)
[2016-11-21] MEDS: INSULIN NovoLIN REGULAR SUPPLEMENTAL SCALE SQ SCH ×4 (04:38→17:32)
[2016-11-21 04:53] LABS: ALKALINE PHOSPHATASE 198 U/L (45-117); ALT (GPT) 172 U/L (12-78); ANION GAP 6 MEQ/L (5-15); AST (GOT) 153 U/L (15-37); BICARBONATE 32.2 MEQ/L (21.0-32.0); BLOOD UREA NITROGEN 15 MG/DL (7-18); CHLORIDE 100 MEQ/L (98-107); GLOMERULAR FILTRATION RATE 163 ML/MIN (>89); POTASSIUM 3.9 MEQ/L (3.5-5.1); SODIUM (NA) 138 MEQ/L (136-145); TOTAL BILIRUBIN ADULT 0.6 MG/DL (0.2-1.0)
[2016-11-21] MEDS: DEXMEDETOMIDINE INJ 1,000 MCG in SODIUM CHLOR 0.9% 250 ML INJ 240 ML IV SCH (05:16)
--- NOTE | 2016-11-21 05:57 | RADRPT ---
EXAM DATE/TIME: 11/21/2016 04:00 [facility] COMPARISON: CHEST SINGLE AP, November 20, 2016, 11:11. INDICATIONS : Shortness of breath, possible pulmonary disease. MEDICAL HISTORY : Stroke. Congestive heart failure. Chronic obstructive pulmonary disease. SURGICAL HISTORY : None. ENCOUNTER: Subsequent ACUITY: 2 weeks PAIN SCORE: Non-responsive. LOCATION: Bilateral chest FINDINGS: There is global cardiomegaly similar to November 20. Small effusions and basilar airspace disease simila r to prior exam. No pneumothorax. CONCLUSION: 1. Cardiomegaly with small effusions and basilar airspace disease similar to November 20. Chaka Campos MD on November 21, 2016 at 5:55 Board Certified Radiologist. This report was verified electronically.
[2016-11-21] MEDS: RESP: ALBUTEROL 2.5 MG/IPRATROPIUM 0.5 MG NEB (SCH) INH ×3 (07:26→23:26)
[2016-11-21 07:39] LABS: SCAN/DIFF AUTO DIFF CONFIRMED
[2016-11-21] MEDS: CHLORHEXIDINE 0.12% (ORAL KIT) 15 ML CUP MT SCH ×2 (08:00→20:00)
[2016-11-21] MEDS: predniSONE 10 MG TAB PO SCH ×2 (08:08→21:13)
[2016-11-21] MEDS: ATENOLOL 50 MG TAB PO SCH ×2 (08:09→21:13)
[2016-11-21] MEDS: SODIUM CHLORIDE 0.9% FLUSH 5 ML FLUSH FLUSH SCH ×2 (08:09→21:00)
[2016-11-21] MEDS: CAPTOPRIL 50 MG TAB PO SCH ×3 (08:09→17:00)
[2016-11-21] MEDS: SODIUM CHLORIDE 0.9% FLUSH 5 ML FLUSH IVF SCH (08:10)
[2016-11-21] MEDS: POTASSIUM CHLORIDE 20 MEQ PWD PACKET NG SCH ×2 (08:11→21:00)
--- NOTE | 2016-11-21 11:16 | RADRPT ---
EXAM DATE/TIME: 11/21/2016 09:37 [facility] COMPARISON: CT THORAX W/O CONTRAST, October 09, 2016, 21:35. INDICATIONS : Shortness of breath, pleural effusions. RADIATION DOSE: 5.58 CTDIvol (mGy) MEDICAL HISTORY : Cardiovascular disease. Hypertension. SURGICAL HISTORY : None. ENCOUNTER: Initial ACUITY: 1 day PAIN SCALE: 0/10 LOCATION: chest TECHNIQUE: Volumetric scanning of the chest was performed. Using automated exposure control and adjustment of t he mA and/or kV according to patient size, radiation dose was kept as low as reasonably achievable to obtain optimal diagnostic quality images. FINDINGS: A moderate left pneumothorax is present without tension. There is a loculated effusion in the medial right base measuring 5 cm in diameter. The cardiac silhouette is enlarged in transverse diameter. A moderate pericardial effusion is present not accessible to aspiration. Coronary artery calcifications are present. There is prominent left at rial enlargement. The visualized upper abdomen demonstrates no abnormality. CONCLUSION: 1. Left pneumothorax without tension 2. Small loculated effusion medial right base 3. Pericardial effusion as above Jimi Chavez MD on November 21, 2016 at 10:18 Board Certified Radiologist. This report was verified electronically.
[2016-11-21] MEDS ORDERED: MIDAZOLAM HCL 5 MG/ML VIAL (1 ML) ONE (13:31)
--- NOTE | 2016-11-21 14:00 | HHI.HCPN ---
Reason for visit a. To assist with evaluation and management of symptoms including: pain, dyspnea, confusion, agitation. b. To assist medical decision maker(s) with: better understanding of current medical conditions; weighing benefits/burdens of medical treatment options; making medical treatment decisions. . Subjective/Interval History Patient remains in the [facility], room 500. Patient is intermittently confused, currently in soft restraints and on Precedex secondary to confusion/agitation. Patient responds to some questions, but speech is often unintelligible at time. Follows simple commands. IV Haldol is ordered q4 hours PRN for agitation; doses administered in the past 24 hours. Currently tolerating 2L oxygen via nasal cannula with oxygen saturations in the high 90s. Respirations elevated at 28, breaths sounds diminished with scattered rales. Chest tube become dislodged on 11/16/16. Status post left pigtail catheter chest tube placed in left chest due to reaccumulation of left pleural fluid on 11/17/16, and thoracentesis with 1.2 L of hemorrhagic fluid removed - cytology negative for malignant cells. Afebrile. WBC increased from 9.4 earlier this week to 17.4 today 11/21/16. Micrococcus bacteremia on admission. Sputum culture on 11/12/16: + Staph Aureus. Pleural fluid cultures NTD. CT chest on 11/21/16 showing left pneumothorax without tension, small loculated effusion medial right base, pericardial effusion. Follow up chest x-ray this morning shows cardiomegaly with small effusions and basilar airspace disease similar to previous image on 11/20/16. Patient passed swallow evaluation today 11/20/16. Recommendations for your consistency diet - vegan and thin consistency liquids. Speech therapy continues to follow. . . Advance Directives Advance Directive Specifics Health Care Surrogate(s): == No written designation of health care surrogacy. == Patient , has on several occasions, verbally stated that he wants BOTH of his children to participate in health care decision making if he is incapacitated to do so. . Documented care wishes: Patient's daughter has indicated during prior hospitalization that her father completed some type of written advanced directives but has not provided copies of these documents to date. . Objective Vital Signs Date Time Temp Pulse Resp B/P Pulse Ox O2 Delivery O2 Flow Rate FiO2 11/21/16 10:00 107 11/21/16 08:00 86 3/30/17 08:00 96.0 86 25 157/70 95 11/21/16 07:27 100 Nasal Cannula 2.00 11/21/16 06:00 84 11/21/16 04:00 100 11/21/16 04:00 98.1 89 32 149/70 100 11/21/16 02:00 93 11/21/16 00:00 88 11/21/16 00:00 98.7 88 23 156/70 100 11/20/16 22:00 105 11/20/16 20:00 97 11/20/16 20:00 97.9 97 42 158/70 96 11/20/16 18:00 94 11/20/16 16:00 86 11/20/16 16:00 97.9 86 29 161/70 100 11/20/16 14:00 83 Intake & Output 11/21/16 11/21/16 07:00 19:00 Intake Total 481 ml Output Total 1170 ml Balance -689 ml Intake Oral 480 ml IV Total 1 ml Output Urine Total 900 ml Chest Tube Drainage Total 270 ml # Bowel Movements 1 . Physical Exam CONSTITUTIONAL/GENERAL: This is a frail, elderly male patient in NAD TUBES/LINES/DRAINS: Right IJ central line, PIV x2, Ivtal, podus boots, pigtail chest tube, Vital catheter, soft restraints SKIN: Ecchymoses on upper extremities, multiple scabbed areas. BLE with venous insufficiency changes. HEAD: Atraumatic. Normocephalic. EYES: PERRLA ENT: Hearing grossly normal. Nose without bleeding or purulent drainage. NECK: Trachea midline. CARDIOVASCULAR: Regular rate and rhythm No murmurs, gallops, or rubs. Peripheral pulses symmetric. RESPIRATORY/CHEST: Tolerating 2L oxygen via nasal cannula s/p left pigtail chest tube placement for worsening effusion. Intermittent tachypnea. Scattered rales. GASTROINTESTINAL: Abdomen soft, non-tender, nondistended. No guarding. Bowel sounds present. GENITOURINARY: Without palpable bladder distension. Vital catheter in place. MUSCULOSKELETAL: Extremities without edema. No deformities. LYMPHATICS: No palpable cervical or supraclavicular adenopathy. NEUROLOGICAL: Awake, smiling. Intermittent confusion. Speech unintelligible much of the time. Follows simple commands. PSYCHIATRIC: Patient is calm on exam with no apparent anxiety, agitation. Remians intermittently agitation, currently on Precedex drip. . Diagnostic Tests Laboratory Laboratory Tests Test 11/19/16 11/19/16 11/20/16 11/20/16 03:39 10:41 03:12 12:09 White Blood Count 9.4 TH/MM3 (4.0-11.0) Red Blood Count 3.07 MIL/MM3 (4.50-5.90) Hemoglobin 10.4 GM/DL (13.0-17.0) Hematocrit 30.7 % (39.0-51.0) Mean Corpuscular Volume 100.0 FL (80.0-100.0) Mean Corpuscular Hemoglobin 33.8 PG (27.0-34.0) Mean Corpuscular Hemoglobin 33.8 % Concent (32.0-36.0) Red Cell Distribution Width 15.5 % (11.6-17.2) Platelet Count 129 TH/MM3 (150-450) Mean Platelet Volume 9.2 FL (7.0-11.0) Neutrophils (%) (Auto) 86.7 % (16.0-70.0) Lymphocytes (%) (Auto) 7.6 % (9.0-44.0) Monocytes (%) (Auto) 5.0 % (0.0-8.0) Eosinophils (%) (Auto) 0.5 % (0.0-4.0) Basophils (%) (Auto) 0.2 % (0.0-2.0) Neutrophils # (Auto) 8.2 TH/MM3 (1.8-7.7) Lymphocytes # (Auto) 0.7 TH/MM3 (1.0-4.8) Monocytes # (Auto) 0.5 TH/MM3 (0-0.9) Eosinophils # (Auto) 0.0 TH/MM3 (0-0.4) Basophils # (Auto) 0.0 TH/MM3 (0-0.2) CBC Comment DIFF FINAL Differential Comment Prothrombin Time 14.4 SEC 17.6 SEC (9.8-11.6) (9.8-11.6) Prothromb Time International 1.3 RATIO 1.6 RATIO Ratio Sodium Level 150 MEQ/L 139 MEQ/L (136-145) (136-145) Potassium Level 4.1 MEQ/L 4.7 MEQ/L (3.5-5.1) (3.5-5.1) Chloride Level 112 MEQ/L 101 MEQ/L (98-107) (98-107) Carbon Dioxide Level 31.9 MEQ/L 30.6 MEQ/L (21.0-32.0) (21.0-32.0) Anion Gap 6 MEQ/L (5-15) 7 MEQ/L (5-15) Blood Urea Nitrogen 27 MG/DL (7-18) 18 MG/DL (7-18) Creatinine 0.55 MG/DL 0.62 MG/DL (0.60-1.30) (0.60-1.30) Estimat Glomerular Filtration 143 ML/MIN 125 ML/MIN Rate (>89) (>89) Random Glucose 97 MG/DL 100 MG/DL (74-106) (74-106) Calcium Level 8.0 MG/DL 8.4 MG/DL (8.5-10.1) (8.5-10.1) Magnesium Level 2.3 MG/DL (1.5-2.5) Total Bilirubin 0.3 MG/DL 0.4 MG/DL (0.2-1.0) (0.2-1.0) Aspartate Amino Transf 75 U/L (15-37) 84 U/L (15-37) (AST/SGOT) Alanine Aminotransferase 108 U/L (12-78) 123 U/L (12-78) (ALT/SGPT) Alkaline Phosphatase 161 U/L 191 U/L (45-117) (45-117) Total Protein 5.2 GM/DL 6.3 GM/DL (6.4-8.2) (6.4-8.2) Albumin 2.0 GM/DL 2.6 GM/DL (3.4-5.0) (3.4-5.0) Pleural Fluid pH 8.5 Pleural Fluid WBC 1271 /MM3 (0-10) Pleural Fluid RBC 02422 /MM3 (0-0) Pleural Fluid Neutrophils 54 % Pleural Fluid Lymphocytes 31 % Pleural Fluid Monocytes 5 % Pleural Fluid Plasma Cells 3 % Pleural Fluid Histiocytes 7 % Pleural Fluid Mesothelial 5 % Cells Pleural Fluid Total Protein 2.2 GM/DL Pleural Fluid LDH 418 U/L Pleural Fluid Glucose 115 MG/DL Test 11/20/16 11/21/16 17:20 03:06 Stool C. difficile Toxin (PCR) NEGATIVE (NEGATIVE) Stl C. difficile Toxin PRESUMPTIVE Epiderm 027 NEGATIVE (NEGATIVE) White Blood Count 17.4 TH/MM3 (4.0-11.0) Red Blood Count 3.67 MIL/MM3 (4.50-5.90) Hemoglobin 12.1 GM/DL (13.0-17.0) Hematocrit 36.0 % (39.0-51.0) Mean Corpuscular Volume 98.1 FL (80.0-100.0) Mean Corpuscular Hemoglobin 32.9 PG (27.0-34.0) Mean Corpuscular Hemoglobin 33.6 % Concent (32.0-36.0) Red Cell Distribution Width 15.1 % (11.6-17.2) Platelet Count 185 TH/MM3 (150-450) Mean Platelet Volume 9.0 FL (7.0-11.0) Neutrophils (%) (Auto) 88.2 % (16.0-70.0) Lymphocytes (%) (Auto) 5.6 % (9.0-44.0) Monocytes (%) (Auto) 5.1 % (0.0-8.0) Eosinophils (%) (Auto) 0.5 % (0.0-4.0) Basophils (%) (Auto) 0.6 % (0.0-2.0) Neutrophils # (Auto) 15.4 TH/MM3 (1.8-7.7) Lymphocytes # (Auto) 1.0 TH/MM3 (1.0-4.8) Monocytes # (Auto) 0.9 TH/MM3 (0-0.9) Eosinophils # (Auto) 0.1 TH/MM3 (0-0.4) Basophils # (Auto) 0.1 TH/MM3 (0-0.2) CBC Comment AUTO DIFF Differential Comment AUTO DIFF CONFIRMED Prothrombin Time 15.9 SEC (9.8-11.6) Prothromb Time International 1.4 RATIO Ratio Sodium Level 138 MEQ/L (136-145) Potassium Level 3.9 MEQ/L (3.5-5.1) Chloride Level 100 MEQ/L (98-107) Carbon Dioxide Level 32.2 MEQ/L (21.0-32.0) Anion Gap 6 MEQ/L (5-15) Blood Urea Nitrogen 15 MG/DL (7-18) Creatinine 0.49 MG/DL (0.60-1.30) Estimat Glomerular Filtration 163 ML/MIN Rate (>89) Random Glucose 98 MG/DL (74-106) Calcium Level 8.4 MG/DL (8.5-10.1) Total Bilirubin 0.6 MG/DL (0.2-1.0) Aspartate Amino Transf 153 U/L (15-37) (AST/SGOT) Alanine Aminotransferase 172 U/L (12-78) (ALT/SGPT) Alkaline Phosphatase 198 U/L (45-117) Total Protein 5.8 GM/DL (6.4-8.2) Albumin 2.5 GM/DL (3.4-5.0) . Result Diagram: 11/21/16 0306 11/21/16 0306 Microbiology Microbiology Date/Time Procedure Status Source Growth 11/19/16 10:41 Gram Stain - Final Resulted Fluid Pleural Fluid 11/19/16 10:41 Body Fluid Culture - Preliminary Resulted Fluid Pleural Fluid NO GROWTH IN 48 HOURS. . Imaging Last 72 hours Impressions Chest X-Ray 11/21/16 0600 Signed Impressions: Service Date/Time: October 04:00 - CONCLUSION: 1. Cardiomegaly with small effusions and basilar airspace disease similar to November 20. Chaka Campos MD Chest X-Ray 11/20/16 0000 Signed Impressions: Service Date/Time: Sunday, November 20, 2016 11:11 - CONCLUSION: 1. Cardiomegaly and findings of congestive heart failure. The findings have worsened when compared with the prior examination. Jimi Chavez MD Chest CT 11/20/16 0000 Signed Impressions: Service Date/Time: October 09:37 - CONCLUSION: 1. Left pneumothorax without tension 2. Small loculated effusion medial right base 3. Pericardial effusion as above Jimi Chavez MD Chest X-Ray 11/19/16 0600 Signed Impressions: Service Date/Time: Saturday, November 19, 2016 02:37 - CONCLUSION: 1. Interval extubation and removal of NG tube. Slight worsening of airspace disease on the left. Cardiomegaly with bilateral effusions. Chaka Campos MD Chest X-Ray 11/19/16 0000 Signed Impressions: Service Date/Time: Saturday, November 19, 2016 09:22 - CONCLUSION: Left-sided chest tube now in place. Left pleural effusion no longer seen. No evidence of pneumothorax. Persistent bilateral lower lung zone pulmonary parenchymal opacity. Mathew Guerrero MD . Procedures 11/08/16: Intubation 11/08/16: Right IJ central line placement 11/08/16: Right chest tube placement with thoracentesis 11/15/16: Left arterial line removed 11/17/16: Chest tube removed 11/17/16: Thoracentesis. 11/18/16: Extubation 11/19/16: Left pigtail chest tube placement . Assessment and Plan Disease Oriented Problem List: (1) Pleural effusion (2) Congestive heart failure (3) Chronic atrial fibrillation (4) Pneumothorax (5) Hypertension (6) Acute respiratory failure with hypoxia and hypercapnia (7) COPD (chronic obstructive pulmonary disease) (8) Pneumonia (9) Protein-calorie malnutrition, severe Symptom Scale: (1) Dyspnea 0-10 Scale: Unable to quantify Comment: Currently tolerating 2L oxygen via nasal cannula with oxygen saturations in the high 90s. Respirations elevated at 28, breaths sounds diminished with scattered rales. Chest tube become dislodged on 11/16/16. Status post left pigtail catheter chest tube placed in left chest due to reaccumulation of left pleural fluid on 11/17/16, and thoracentesis with 1.2 L of hemorrhagic fluid removed - cytology negative for malignant cells. (2) Pain 0-10 Scale: Unable to quantify Comment: Probable causes of pain include dyspnea, infection, invasiveness lines , skin breakdown, immobility, bedbound status etc. Titrating Precedex drip as needed. PRN acetaminophen is available for pain/fever as well. (3) Agitation Comment: IV Haldol is ordered q4 hours PRN for agitation; doses administered in the past 24 hours. (4) Confusion Comment: Patient is intermittently confused, currently in soft restraints and on Precedex secondary to confusion/agitation. Patient responds to some questions , but speech is often unintelligible at time. Follows simple commands. Pertinent Non-Medical Issues Psychosocial: Patient is originally from [facility] but has lived in [place] since . 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 He was and , many years ago. He has 2 children. His daughter, Raissa daniels, lives locally and is very involved in the patient's care. The patient also has a son living in [place], but reportedly has not seen him in the last 5 years. The patient does keep in touch. The patient lives alone. His daughter lives a few blocks away and assist the patient with shopping and meal preparation. Spiritual: The patient comes from [employer] tradition. Per his daughter, restorationist and spirituality have not been an important part of his life. Legal: Patient is currently incapacitated and unable to participate in clarification of medical treatment goals. It is unclear at this time if the patient will ever became this capacity. Per [place] statutes, in the absence of written advanced directives healthcare proxy decision making would fall to the patient's 2 adult children. Patient, has on several occasions during previous hospitalization, verbally stated that he wanted BOTH of his children to participate in health care decision making if he is incapacitated to do so. Ethical issues impacting care: No known ethical issues impacting care at this time. Important Contacts Raissa Duncan (daughter) [phone] Anselmo Duncan (son) [phone] Aneesh Walls (friend) [phone] . Prognosis This is an 81-year-old male with an extensive history (decades) of congestive heart failure complicated by underlying COPD, history of alcohol abuse. Patient has been declining since March 2016 particularly with recurrent right pleural effusions. He has required > 5 thoracenteses since that time. He has been living at [facility] since his last discharge from [facility] on 10/20/16. There is known ischemic heart disease and failure may be primarily due to valvular heart disease. There is severe tricuspid regurgitation. Patient There is a reasonable chance he will continue to improve well enough to survive the hospitalization. Based on his history of the last few months, long-term prognosis is not good. Life expectancy is probably in the order of months. Patient would certainly be eligible for hospice services at such time as his goals become mostly comfort oriented. Code Status: Full Code Plan * FULL CODE * Decision making: Patient is currently incapacitated and unable to participate in clarification of medical treatment goals. It is unclear at this time if the patient will ever became this capacity. Per [place] statutes, in the absence of written advanced directives healthcare proxy decision making would fall to the patient's 2 adult children. Patient, has on several occasions during previous hospitalization, verbally stated that he wanted BOTH of his children to participate in health care decision making if he is incapacitated to do so. * GOALS: Aggressive goals * Symptom managementdyspnea: Currently tolerating 2L oxygen via nasal cannula with oxygen saturations in the high 90s. Respirations elevated at 28, breaths sounds diminished with scattered rales. Chest tube become dislodged on 11/16/16. Status post left pigtail catheter chest tube placed in left chest due to reaccumulation of left pleural fluid on 11/17/16, and thoracentesis with 1.2 L of hemorrhagic fluid removed - cytology negative for malignant cells. * Symptom managementpain: Probable causes of pain include dyspnea, infection, invasiveness lines, skin breakdown, immobility, bedbound status etc. Titrating Prcedex drip as needed. PRN acetaminophen is available for pain/fever as well. Palliative care will monitor for s/s nonverbal pain and make recommendations as indicated. * Symptom management- agitation: IV Haldol is ordered q4 hours PRN for agitation ; doses administered in the past 24 hours. If Haldol is ineffective in managing patient's agitation, low dose lorazepam (1mg IV q4 hours PRN) is recommended as adjunctive therapy. * Symptom management- confusion: Patient is intermittently confused, currently in soft restraints and on Precedex secondary to confusion/agitation. Patient responds to some questions, but speech is often unintelligible at time. Follows simple commands. * Palliative care will continue to follow this patient throughout his hospitalization to establish trust, assist with symptom management and clarification of medical treatment goals. . Attestation To help prompt me to consider important information that might be impacting today's encounter and assessment, information from prior notes written by myself or my colleagues may have been "brought forward" into today's note. My signature on this note, however, is an attestation that I personally performed the exam, history, and/or decision-making noted today, and, unless otherwise indicated, the interactions with patient, family, and staff as well as the review of records all occurred today. I also attest that the listed assessment and stated plan reflect my best clinical judgment today based on the combination of historical information, prior notes, and today's exam/ interactions. When time spent is documented, it refers only to time spent today by the signer, or if indicated, combined time spent today by collaborating physician/nurse practitioner. . Sujatha Elliott Nov 21, 2016 14:00
--- NOTE | 2016-11-21 14:12 | HHI.CCPN ---
Subjective Remarks/Hospital Course This is an 81-year-old male who has had multiple readmissions over the past few months for a recurrent right-sided pleural effusion. He represents from his retirement facility with recurrent right-sided pleural effusion as well as hypoxia and somnolence. He was found to have significant hypercarbia and a PCO2 in the 90s. He was initially placed on BiPAP and admitted to the [facility]. He became more somnolent and his oxygen saturation began to decline. At this point a critical care medicine is consulted to evaluate and manage his hypercarbic respiratory failure. Because he is failed his trial of noninvasive positive pressure ventilation, we will move towards intubating the patient. I evaluated the patient and he is essentially unresponsive and obtunded and only minimally withdrawing to pain. I can obtain no additional history from the patient. Subjective: 11/09: Early this a.m. at approximately 06:30 the patient was noted to have a grand mal seizure lasting approximately 60 seconds followed by a small tonic- clonic seizure lasting 30 seconds involving the lower extremities. The patient received Ativan 2 mg with cessation of seizure activity. Stat CT of the brain without contrast was obtained showed no acute abnormality. EEG was obtained previously awaiting results. Prior to the event the patient was noted to be on a fentanyl infusion at approximately 250 mcg/h. The patient was noted to be a GCS 10T, squeezing my hand. 11/10: The patient was noted to have multiple seizures requiring interventions with IV Ativan. Described as tonic-clonic in nature with eyes rolled back in the head. Gross motor movement shaking 4 extremities. Today the patient was noted to have a positive growth and blood cultures. WBC count elevated. Ammonia level was drawn less than 10, lactate was noted to be 2.2 this morning. Pleural fluid culture negative growth to date. 11/11: On stimulation patient continues to have jerking movement of all extremities. EEG negative for seizures. Check MRI today. Dr. Kirkland is neurology. Remains on 2 mcg/min of Levophed 11/12: Per neurologist, patient had witnessed with tonic convulsions started over right arm and propagated to left UE and both LE with fluttering of the eyes and upward gaze.Loaded with Dilantin iv infusion and a maintenance dose of 100mg Q8h, Stat EEG negative for seizures. Its unclear to me whether it is seizure or myoclonus 11/13: No change in neuro status. Continues to have jerking movements off lower extremity when stimulated. EEG 2 have been negative for seizures. We'll hold sedation for neuro exam 11/14: On sedation hold opens eyes. Appears to follow commands and upper extremity. Still has some tremulousness of the extremities. Remains off pressors 11/15: Remains on Precedex intermittently following commands for RN. Placed on CPAP tolerating well. No evidence of myoclonus now 11/16: On 1.1 mcg/kg/hr of Precedex. No spontaneous eye opening but moves all extremities spontaneously. Not following commands will reduce Precedex, and start weaning trials 11/17: Mental status significantly improved patient following commands on Precedex. However chest tube was dislodged yesterday evening, now has bilateral pleural effusions left is more than right, appears large. Vent day 10 11/18: Off Precedex following commands upper extremities. But continues to fail C Pap trials due to tachypnea and low tidal volumes. Status post large-volume left thoracentesis yesterday with 1.2 L of old blood-tinged fluid removed. 11/19: Overnight agitated, requiring maximum dose Precedex 1.4 mcg per kg per hr and restraints. Currently heavily sedated. Chest x-ray shows increasing left effusion confirmed by ultrasound. We'll proceed with left pigtail catheter after consent. Continue to hold Coumadin due to hemorrhagic effusion 11/20: Left pigtail chest tube placed yesterday with a 30 mL output. Mentation improving now oriented follows commands. Requiring oxygen by nasal cannula. Slight increase in right effusion seen on chest x-ray 11/21: CT chest shows moderate left-sided pneumothorax. Eating continues to be slightly tachypneic but patient appears comfortable. Agitated requiring 4 point restraints. Also a liver enzymes are increasing most likely secondary to Dilantin. I will DC Dilantin and start him on Keppra Objective Vital Signs Date Time Temp Pulse Resp B/P Pulse Ox O2 Delivery O2 Flow Rate FiO2 11/21/16 10:00 107 11/21/16 08:00 96.0 25 157/70 95 11/21/16 07:27 Nasal Cannula 2.00 11/20/16 00:00 30 Intake and Output 11/20/16 11/20/16 11/21/16 08:00 16:00 00:00 Intake Total 768 ml 770 ml 240 ml Output Total 275 ml 1250 ml 920 ml Balance 493 ml -480 ml -680 ml Result Diagram: 11/21/16 0306 11/21/16 0306 Imaging Last [address] 11/07/161955 Signed Impressions: Service Date/Time: October 20:38 - CONCLUSION: No acute intracranial abnormality demonstrated. Chronic white matter and old ischemic changes. Dhruv Foster MD Chest X-Ray 11/07/161955 Signed Impressions: Service Date/Time: October 20:54 - CONCLUSION: Worsening bilateral airspace disease and pleural effusions. Dhruv Foster MD Objective Remarks GENERAL: This is a elderly critically ill-appearing cachectic male, off all sedation. Intermittently agitated, requiring restraints HEENT: Normocephalic. Atraumatic. Pupils equal, round, reactive. NECK: Trachea is midline. No JVD. On NC oxygen CHEST: Right sided chest tube dislodged 11/16/16. Air entry diminished bilaterally. Moderate to large L effusion-s/p L chest tube 11/19/16 CARDIOVASCULAR: Normal rate, regular rhythm. No appreciable murmurs. ABDOMEN: After, nontender, nondistended. No guarding. MUSCULOSKELETAL: 1+ peripheral edema. Distal pulses 2+ NEUROLOGICAL: Alert awake and oriented. Moves all 4 extremities. Intermittently agitated requiring restraints Date of Insertion: Nov 08, 2016 Side: Right Location: Internal, Jugular A/P Assessment and Plan Assessment: This is an 81-year-old male with history of prior recurrent right pleural effusions and COPD now presents with acute hypercarbic and hypoxic respiratory failure which has failed noninvasive positive pressure ventilation. Intubated and placed on mechanical ventilation. Covering COPD exacerbation, as well as healthcare associated pneumonia given his history of being on Levaquin at his retirement facility. He remains critically ill. Not sure that we will be able to get him through this hospitalization, and his recurrent respiratory failures are clearly making him more deconditioned every time he comes in the hospital. Despite this, daughter continues to request aggressive measures. Extubated 11/18/16 Plan by systems: Neurologic: Myoclonus-resolved Agitated delirium CO2 narcosis Metabolic encephalopathy Mild dementia -Precedex as needed. Use Ativan PRN for breakthrough seizures /myoclonus -EEG negative 11/10/15, 11/11/16 (moderate to severe encephalopathy, no seizure) -11/08 CT of the brain-no acute abnormality. 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 Question of amyloid -Neuro Exam continues to improve almost to baseline now -Discontinue Dilantin due to transaminitis. Start Keppra 500 mg by mouth twice a day Respiratory: Acute hypercarbic and hypoxic respiratory failure-extubated Recurrent right pleural effusion s/p chest tube placement-dislodged 11/17 New moderate left pneumothorax Right pneumothorax-resolved Large hemorrhagic left pleural effusion status post thoracentesis 11/17/16, pigtail chest tube 11/19/16 Healthcare associated pneumonia COPD exacerbation Continue prednisone per Doe HoneycuttoNeb every 8 and every 2 when necessary --Pulmonary Dr. Bone, plan was pleurodesis prior to removal of R chest tube, but accidentally dislodged -Place anterior left anterior pigtail chest tube for moderate pneumothorax Head of bed at 30, wean FiO2 for goal SPO2 greater than 90% Extubated 11/18/16 on Vent day 11. --Status post left thoracentesis 11/17/16 with 1.2 L of hemorrhagic fluid removed. CXR/US shows reaccumulation of left pleural fluid. Placed pigtail chest tube at 11/19/1611/08 S/P CT guided IR drainage of recurrent right posterior pleural effusion, unable to perform pleurodesis, accidentally dislodged --s/p R pig tail chest tube for large L pl effusion 11/19/16 Antibiotics as described below Cardiovascular: Severe pulmonary hypertension (PASP 85 on Echo 10/08/16, repeat echo 11/19/16 PASP was 47) A. fib RVR Hypertension Moderate to severe TR Maintain map greater than 60-65 Resumed home antihypertensives (captopril and atenolol 11/14/16) --Monitor CVP --Repeat 2d echo 11/19/16 PASP was 47 compared to 85 on 10/18/16. Hold off Revatio Renal: Hypernatremia Maintain Vital for accurate --Strict I/Os --D5W at 100 mL per hour to correct hypernatremia-DC as Na is normal FEN/GI: Acute intravascular volume overload Acute protein calorie malnutritionsevere Metabolic alkalosis Heart healthy and vegan diet. ICU electrolyte protocol --Started scheduled Bumex 1 mg IV every 12, 11/17, now discontinued Heme/ID: Healthcare associated pneumonia, staph aureus in sputum Leukocytosis CBC CMP today - ID consulted by Dr. Gaspar. Dr. Topete following Does not meet transfusion triggers at this time Currently on ceftriaxone 2 g IV every 24 hours per ID (Vanc and cefepime DCd ) 11/08 blood -micrococcus 08/28 possible contaminant - Urine cultures-NGTD --Sputum cx 11/12/16 with staph aureus Endocrine: Hyperglycemia of critical illness -- SSI, medium scale, every 6 hours Prophylaxis: GI Prophylaxis Protonix 40 mg IV every 24 hours DVT Prophylaxis --SCDs Patient was Coumadin, hold due to multiple procedures, and also hemorrhagic left pleural effusion --Consider restarting Coumadin 11/22/16 Lines: Peripheral IVsx 2. central line Vital Dispo: Discussed medical update with daughter who desires aggressive treatment at this time. spoke with [employer] OPERATOR at bedside. palliative care following This patient remains critically ill with one or more organ systems which are or may become a threat to life. I have spent in excess of 32 minutes discontinuously in the care and management of this patient. This time is exclusive of procedures, and includes, but is not limited to, evaluation of the patient, review of the medical record, discussions with family, consultants, nursing staff, or respiratory therapy, and documentation in the medical record. Updated daughter at bedside on 11/17/16. She wants to continue aggressive care and proceed with tracheostomy and PEG tube if unable to wean Discussed with Dr. Bone. He will talk to the daughter again about addressing CODE STATUS and will recommend DNR Rebecca Bartlett MD Nov 21, 2016 14:12
--- NOTE | 2016-11-21 15:37 | RADRPT ---
EXAM DATE/TIME: 11/21/2016 14:49 [facility] COMPARISON: CT THORAX W/O CONTRAST, November 21, 2016, 9:37. CHEST SINGLE AP, November 21, 2016, 4:00. INDICATIONS : Post left side chest tube placement MEDICAL HISTORY : Cardiovascular disease. Hypertension Stroke. SURGICAL HISTORY : None. ENCOUNTER: Initial ACUITY: 2 weeks PAIN SCORE: Non-responsive. LOCATION: Bilateral chest FINDINGS: Single AP view of the chest. Medial left sided pigtail chest catheter. No evidence of pneumothorax. M arked cardiac silhouette enlargement again seen. Bilateral lower lung zone parenchymal opacity right greater than left unchanged. CONCLUSION: Medial left-sided pigtail chest catheter. No evidence of pneumothorax. Mathew Guerrero MD on November 21, 2016 at 15:33 Board Certified Radiologist. This report was verified electronically.
[2016-11-21] MEDS: WARFARIN SOD 6 MG TAB PO SCH (17:32)
[2016-11-21] MEDS: FUROSEMIDE 20 MG TAB PO SCH (18:15)
--- NOTE | 2016-11-21 18:17 | PD.PROCEDR ---
Procedure Note Procedure Left anterior pigtail chest tube placement Informed consent was obtained and time out performed. Full barrier and sterile precautions were used. Skin and subcutaneous tissue anesthetized with 1% lidocaine. A small skin bishop was made with scalpel. Introducer Angiocath was placed into the pleural space and air was aspirated. Needle was removed and guidewire was placed. After dilation of track, 10 fr pigtail catheter was placed using Seldinger technique and then secured with sutures and stay fix. Initial air leak subsided quickly. Patient tolerated procedure well. Further lab work ordered. Chest tube was connected to Pleuro vac at -20 suction Rebecca Bartlett MD Nov 21, 2016 18:17
--- NOTE | 2016-11-21 18:45 | HHI.PR ---
Subjective Remarks Had a left thoracentesis and now has a Chest tube on the left. Extubated and anxious.On O2 2l. CT chest shows a Moderate left Pneumothorax. Chest tube is in left lower chest Objective Vital Signs Date Time Temp Pulse Resp B/P Pulse Ox O2 Delivery O2 Flow Rate FiO2 11/21/16 18:00 94 11/21/16 17:33 20 11/21/16 16:00 98.4 71 27 116/58 100 11/21/16 16:00 71 11/21/16 14:00 81 11/21/16 12:00 71 11/21/16 12:00 98.3 71 24 97/55 99 11/21/16 10:00 107 11/21/16 08:00 86 11/21/16 08:00 96.0 86 25 157/70 95 11/21/16 07:27 100 Nasal Cannula 2.00 11/21/16 06:00 84 11/21/16 04:00 100 11/21/16 04:00 98.1 89 32 149/70 100 11/21/16 02:00 93 11/21/16 00:00 88 11/21/16 00:00 98.7 88 23 156/70 100 11/20/16 22:00 105 11/20/16 20:00 97 11/20/16 20:00 97.9 97 42 158/70 96 I/O 11/20/16 11/20/16 11/20/16 11/21/16 11/21/16 11/21/16 07:00 15:00 23:00 07:00 15:00 23:00 Intake Total 768 ml 770 ml 240 ml 241 ml 528 ml 120 ml Output Total 275 ml 1250 ml 920 ml 250 ml 200 ml 300 ml Balance 493 ml -480 ml -680 ml -9 ml 328 ml -180 ml Intake Oral 0 ml 480 ml 240 ml 240 ml 480 ml 120 ml IV Total 768 ml 290 ml 1 ml 48 ml Output Urine Total 275 ml 1250 ml 700 ml 200 ml 200 ml Chest Tube Drainage Total 220 ml 50 ml 300 ml # Bowel Movements 1 1 1 0 1 Result Diagram: 11/21/16 0306 11/21/16 0306 Objective Remarks GENERAL: Elderly male awake and anxious . On o2 HEENT: Pupils are equal and react to light. Oral mucosa, nasal mucosa normal. NECK: Supple. JVP not raised. CHEST: Occ rales at the bases,and wheeze. Decreased breath sounds at bases CARDIOVASCULAR: S1, S2 normal. ABDOMEN: Benign.No mass. EXTREMITIES: No edema. Neuro, Weak Legs Poor pulses. Assessment and Plan Assessment and Plan IMPRESSION 1. Ventilator dependent respiratory failure. 2. Pleural effusions status post chest tube placement. 3. Congestive heart failure. 4. Atrial fibrillation. 5. Pulmonary HTN Plan : 1. O2 at 2 L. N/C 2. Nebs qid , duoneb. 3. Continue diuretics. 4. Chest tube to drainage 5. CBC ,BMP in am. 6. Place a Small catheter in left upper chest to drain Pneumo. 7. D/W Dr Bartlett 8. D/C solumedrol and add Prednisone 10 mg bid Paulo Rooney MD Nov 21, 2016 18:45
[2016-11-21] MEDS: levETIRAcetam 500 MG TAB PO SCH (21:13)
[2016-11-22] VITALS (14 sets, daily range): BP systolic 99–131; BP diastolic 52–66; PULSE 59–72; RESP 18–30; TEMP 97.4–98.9; O2SAT 97–100
[2016-11-22] MEDS: DEXMEDETOMIDINE INJ 1,000 MCG in SODIUM CHLOR 0.9% 250 ML INJ 240 ML IV SCH (03:03)
[2016-11-22 05:06] LABS: AUTOMATED NEUTROPHIL # 8.4 TH/MM3 (1.8-7.7); BASOPHIL % 0.4 % (0.0-2.0); EOSINOPHIL # 0.1 TH/MM3 (0-0.4); EOSINOPHIL % 1.2 % (0.0-4.0); HEMATOCRIT 32.8 % (39.0-51.0); HEMO FLAGS DIFF FINAL; LYMPH % 10.3 % (9.0-44.0); LYMPHOCYTE # 1.1 TH/MM3 (1.0-4.8); MEAN CELL VOLUME 98.4 FL (80.0-100.0); MEAN CORPUSCULAR HEMOGLOBIN 33.7 PG (27.0-34.0); MEAN CORPUSCULAR HGB CONC 34.3 % (32.0-36.0); MONO % 8.1 % (0.0-8.0); PLATELET COUNT 116 TH/MM3 (150-450); RED BLOOD COUNT 3.33 MIL/MM3 (4.50-5.90); WHITE BLOOD COUNT 10.5 TH/MM3 (4.0-11.0)
[2016-11-22 05:25] LABS: INTERNATIONAL NORMALIZED RATIO 1.2 RATIO; PROTHROMBIN TIME - PATIENT 13.8 SEC (9.8-11.6)
[2016-11-22 05:40] LABS: ALKALINE PHOSPHATASE 179 U/L (45-117); ALT (GPT) 120 U/L (12-78); ANION GAP 4 MEQ/L (5-15); AST (GOT) 69 U/L (15-37); BLOOD UREA NITROGEN 15 MG/DL (7-18); CHLORIDE 103 MEQ/L (98-107); GLOMERULAR FILTRATION RATE 160 ML/MIN (>89); POTASSIUM 4.7 MEQ/L (3.5-5.1); SODIUM (NA) 138 MEQ/L (136-145); TOTAL BILIRUBIN ADULT 0.5 MG/DL (0.2-1.0)
[2016-11-22] MEDS: INSULIN NovoLIN REGULAR SUPPLEMENTAL SCALE SQ SCH ×5 (06:00→23:48)
--- NOTE | 2016-11-22 06:03 | RADRPT ---
EXAM DATE/TIME: 11/22/2016 03:54 [facility] COMPARISON: CT THORAX W/O CONTRAST, November 21, 2016, 9:37. CHEST SINGLE AP, November 21, 2016, 14:49. INDICATIONS : Shortness of breath. MEDICAL HISTORY : Hypertension. Cardiovascular disease. SURGICAL HISTORY : None. ENCOUNTER: Subsequent ACUITY: 2 weeks PAIN SCORE: Non-responsive. LOCATION: Bilateral chest FINDINGS: Portable AP view of the chest demonstrates stable severe enlargement of the cardiac silhouette. Left chest tube remains present and no pneumothorax is visualized. There is stable airspace opacity in the left lower lung zone and pleural-parenchymal opacity at the right lung base. CONCLUSION: 1. Left chest tube remains present and no pneumothorax is visualized. 2. Stable severe enlargement of the cardiac silhouette. 3. Stable small right pleural effusion with associated compressive atelectasis and/or consolidation. There is also stable atelectasis versus consolidation at the left lung base. Dhruv Wallace MD on November 22, 2016 at 6:00 Board Certified Radiologist. This report was verified electronically.
--- NOTE | 2016-11-22 07:13 | HHI.CCPN ---
Subjective Remarks/Hospital Course This is an 81-year-old male who has had multiple readmissions over the past few months for a recurrent right-sided pleural effusion. He [facility] from his [facility] facility with recurrent right-sided pleural effusion as well as hypoxia and somnolence. He was found to have significant hypercarbia and a PCO2 in the 90s. He was initially placed on BiPAP and admitted to the [facility]. He became more somnolent and his oxygen saturation began to decline. At this point a critical care medicine is consulted to evaluate and manage his hypercarbic respiratory failure. Because he is failed his trial of noninvasive positive pressure ventilation, we will move towards intubating the patient. I evaluated the patient and he is essentially unresponsive and obtunded and only minimally withdrawing to pain. I can obtain no additional history from the patient. Subjective: 11/09: Early this a.m. at approximately 06:30 the patient was noted to have a grand mal seizure lasting approximately 60 seconds followed by a small tonic- clonic seizure lasting 30 seconds involving the lower extremities. The patient received Ativan 2 mg with cessation of seizure activity. Stat CT of the brain without contrast was obtained showed no acute abnormality. EEG was obtained previously awaiting results. Prior to the event the patient was noted to be on a fentanyl infusion at approximately 250 mcg/h. The patient was noted to be a GCS 10T, squeezing my hand. 11/10: The patient was noted to have multiple seizures requiring interventions with IV Ativan. Described as tonic-clonic in nature with eyes rolled back in the head. Gross motor movement shaking 4 extremities. Today the patient was noted to have a positive growth and blood cultures. WBC count elevated. Ammonia level was drawn less than 10, lactate was noted to be 2.2 this morning. Pleural fluid culture negative growth to date. 11/11: On stimulation patient continues to have jerking movement of all extremities. EEG negative for seizures. Check MRI today. Dr. Kirkland is neurology. Remains on 2 mcg/min of Levophed 11/12: Per neurologist, patient had witnessed with tonic convulsions started over right arm and propagated to left UE and both LE with fluttering of the eyes and upward gaze.Loaded with Dilantin iv infusion and a maintenance dose of 100mg Q8h, Stat EEG negative for seizures. Its unclear to me whether it is seizure or myoclonus 11/13: No change in neuro status. Continues to have jerking movements off lower extremity when stimulated. EEG 2 have been negative for seizures. We'll hold sedation for neuro exam 11/14: On sedation hold opens eyes. Appears to follow commands and upper extremity. Still has some tremulousness of the extremities. Remains off pressors 11/15: Remains on Precedex intermittently following commands for RN. Placed on CPAP tolerating well. No evidence of myoclonus now 11/16: On 1.1 mcg/kg/hr of Precedex. No spontaneous eye opening but moves all extremities spontaneously. Not following commands will reduce Precedex, and start weaning trials 11/17: Mental status significantly improved patient following commands on Precedex. However chest tube was dislodged yesterday evening, now has bilateral pleural effusions left is more than right, appears large. Vent day 10 11/18: Off Precedex following commands upper extremities. But continues to fail C Pap trials due to tachypnea and low tidal volumes. Status post large-volume left thoracentesis yesterday with 1.2 L of old blood-tinged fluid removed. 11/19: Overnight agitated, requiring maximum dose Precedex 1.4 mcg per kg per hr and restraints. Currently heavily sedated. Chest x-ray shows increasing left effusion confirmed by ultrasound. We'll proceed with left pigtail catheter after consent. Continue to hold Coumadin due to hemorrhagic effusion 11/20: Left pigtail chest tube placed yesterday with a 30 mL output. Mentation improving now oriented follows commands. Requiring oxygen by nasal cannula. Slight increase in right effusion seen on chest x-ray 11/21: CT chest shows moderate left-sided pneumothorax. Eating continues to be slightly tachypneic but patient appears comfortable. Agitated requiring 4 point restraints. Also a liver enzymes are increasing most likely secondary to Dilantin. I will DC Dilantin and start him on Keppra 11/22 No acute events overnight. On Precedex drip. Afebrile. CXR this morning showed no evidence of PTX. Objective Vital Signs Date Time Temp Pulse Resp B/P Pulse Ox O2 Delivery O2 Flow Rate FiO2 11/22/16 02:00 66 11/22/16 00:00 97.6 30 127/58 100 11/21/16 23:26 Nasal Cannula 2.00 11/20/16 00:00 30 Intake and Output 3/30/17 3/30/17 3/31/17 08:00 16:00 00:00 Intake Total 241 ml 528 ml 1183 ml Output Total 250 ml 200 ml 640 ml Balance -9 ml 328 ml 543 ml Result Diagram: 11/22/16 0422 11/22/16 0422 Other Results Laboratory Tests Test 11/22/16 04:22 White Blood Count 10.5 TH/MM3 Red Blood Count 3.33 MIL/MM3 Hemoglobin 11.2 GM/DL Hematocrit 32.8 % Mean Corpuscular Volume 98.4 FL Mean Corpuscular Hemoglobin 33.7 PG Mean Corpuscular Hemoglobin 34.3 % Concent Red Cell Distribution Width 15.0 % Platelet Count 116 TH/MM3 Mean Platelet Volume 9.1 FL Neutrophils (%) (Auto) 80.0 % Lymphocytes (%) (Auto) 10.3 % Monocytes (%) (Auto) 8.1 % Eosinophils (%) (Auto) 1.2 % Basophils (%) (Auto) 0.4 % Neutrophils # (Auto) 8.4 TH/MM3 Lymphocytes # (Auto) 1.1 TH/MM3 Monocytes # (Auto) 0.8 TH/MM3 Eosinophils # (Auto) 0.1 TH/MM3 Basophils # (Auto) 0.0 TH/MM3 CBC Comment DIFF FINAL Differential Comment Prothrombin Time 13.8 SEC Prothromb Time International 1.2 RATIO Ratio Sodium Level 138 MEQ/L Potassium Level 4.7 MEQ/L Chloride Level 103 MEQ/L Carbon Dioxide Level 31.0 MEQ/L Anion Gap 4 MEQ/L Blood Urea Nitrogen 15 MG/DL Creatinine 0.50 MG/DL Estimat Glomerular Filtration 160 ML/MIN Rate Random Glucose 86 MG/DL Calcium Level 8.4 MG/DL Magnesium Level 2.0 MG/DL Total Bilirubin 0.5 MG/DL Aspartate Amino Transf 69 U/L (AST/SGOT) Alanine Aminotransferase 120 U/L (ALT/SGPT) Alkaline Phosphatase 179 U/L Total Protein 5.5 GM/DL Albumin 2.2 GM/DL Imaging Last Impressions Chest X-Ray 11/22/16 0600 Signed Impressions: Service Date/Time: Tuesday, November 22, 2016 03:54 - CONCLUSION: 1. Left chest tube remains present and no pneumothorax is visualized. 2. Stable severe enlargement of the cardiac silhouette. 3. Stable small right pleural effusion with associated compressive atelectasis and/or consolidation. There is also stable atelectasis versus consolidation at the left lung base. Dhruv Wallace MD Chest CT 11/20/16 0000 Signed Impressions: Service Date/Time: October 09:37 - CONCLUSION: 1. Left pneumothorax without tension 2. Small loculated effusion medial right base 3. Pericardial effusion as above Jimi Chavez MD Liver Ultrasound 11/17/16 0000 Signed Impressions: Service Date/Time: Thursday, November 17, 2016 15:58 - CONCLUSION: 1. Increased liver echogenicity characteristic of mild fatty infiltration or hepatocellular disease. 2. Trace free fluid in the abdomen. Pleural effusions. Mild gallbladder wall thickening. Chaka Campos MD Brain MRI 11/11/16 0000 Signed Impressions: Service Date/Time: Friday, November 11, 2016 12:53 - CONCLUSION: 1. 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 2. 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 The others would be consistent with punctate, remote areas of hemorrhage suggesting possibility of amyloid. Eitan Mendoza MD Head CT 11/09/16 0000 Signed Impressions: Service Date/Time: Wednesday, November 09, 2016 10:29 - CONCLUSION: Stable CT scan of the brain. Pradeep Rodriguez MD Chest Tube Insertion 11/08/16 0000 Signed Impressions: Service Date/Time: Tuesday, November 08, 2016 12:46 - CONCLUSION: Uncomplicated right chest tube placement as above. 1500 cc of fluid removed and sent for culture. Post CT scan reveals a large. pleural rind . The right lung may well not reexpanded. A.m. chest x-ray is pending. Cultures pending. Kun Mendoza MD FACR CT Angiography 11/07/16 0000 Signed Impressions: Service Date/Time: October 20:40 - CONCLUSION: 1. No pulmonary embolus. 2. Marked cardiac enlargement, especially the atria. 3. Bilateral effusions and atelectasis about the same on the left and considerably worse on the right. Right pneumothorax seen previously has resolved. Dhruv Foster MD Objective Remarks GENERAL: This is a elderly critically ill-appearing cachectic male, off all sedation. Intermittently agitated, requiring restraints HEENT: Normocephalic. Atraumatic. Pupils equal, round, reactive. NECK: Trachea is midline. No JVD. On [place] oxygen CHEST: Right sided chest tube dislodged 11/16/16. Air entry diminished bilaterally. Moderate to large L effusion-s/p L chest tube 11/19/16 CARDIOVASCULAR: Normal rate, regular rhythm. No appreciable murmurs. ABDOMEN: After, nontender, nondistended. No guarding. MUSCULOSKELETAL: 1+ peripheral edema. Distal pulses 2+ NEUROLOGICAL: Alert awake and oriented. Moves all 4 extremities. Intermittently agitated requiring restraints Date of Insertion: Nov 08, 2016 Side: Right Location: Internal, Jugular A/P Assessment and Plan Assessment: This is an 81-year-old male with history of prior recurrent right pleural effusions and COPD now presents with acute hypercarbic and hypoxic respiratory failure which has failed noninvasive positive pressure ventilation. Intubated and placed on mechanical ventilation. Covering COPD exacerbation, as well as healthcare associated pneumonia given his history of being on Levaquin at his [facility] facility. He remains critically ill. Not sure that we will be able to get him through this hospitalization, and his recurrent respiratory failures are clearly making him more deconditioned every time he comes in the hospital. Despite this, daughter continues to request aggressive measures. Extubated 11/18/16 Plan by systems: Neurologic: Myoclonus-resolved Agitated delirium CO2 narcosis Metabolic encephalopathy Mild dementia -Wean off Precedex drip and monitor neuro status. Use Ativan PRN for breakthrough seizures /myoclonus -EEG negative 11/10/15, 11/11/16 (moderate to severe encephalopathy, no seizure) -11/08 CT of the brain-no acute abnormality. 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 Question of amyloid -On Keppra 500 mg by mouth twice a day Respiratory: Acute hypercarbic and hypoxic respiratory failure-extubated Recurrent right pleural effusion s/p chest tube placement-dislodged 11/17 New moderate left pneumothorax Right pneumothorax-resolved Large hemorrhagic left pleural effusion status post thoracentesis 11/17/16, pigtail chest tube 11/19/16 Healthcare associated pneumonia COPD exacerbation Continue prednisone per Dr. Guzmán, DuoNeb every 8 and every 2 when necessary --Pulmonary Dr. Bone, -s/p anterior left anterior pigtail chest tube Head of bed at 30, wean FiO2 for goal SPO2 greater than 90% Extubated 11/18/16 --Status post left thoracentesis 11/17/16 with 1.2 L of hemorrhagic fluid removed. CXR/US shows reaccumulation of left pleural fluid. pigtail chest tube placed 11/19/1611/08 S/P CT guided IR drainage of recurrent right posterior pleural effusion, unable to perform pleurodesis, accidentally dislodged --s/p R pig tail chest tube for large L pl effusion 11/19/16 CXR this morning showed no evidence of PTX, monitor CT drainage ( Left lateral CT drained 390 ml) Cardiovascular: Severe pulmonary hypertension (PASP 85 on Echo 10/08/16, repeat echo 11/19/16 PASP was 47) A. fib RVR Hypertension Moderate to severe TR Continue with BP meds- (captopril and atenolol 11/14/16) --Monitor HR and BP keep MAP>65mmHg --Repeat 2d echo 11/19/16 PASP was 47 compared to 85 on 10/18/16. Renal: Hypernatremia- resolved Monitor renal function, I/O's, electrolytes replacement per protocol. -On Lasix 20mg BID FEN/GI: Acute intravascular volume overload Acute protein calorie malnutritionsevere Elevated LFT's Heart healthy and vegan diet. -Monitor LFT's...trending down Heme/ID: Healthcare associated pneumonia, staph aureus in sputum Leukocytosis- Resolved -Off abx , ID is following. Monitor for signs of infections ( Fever, WBC) 11/08 blood -micrococcus 1/ possible contaminant - Urine cultures-NGTD --Sputum cx 11/12/16 with staph aureus Endocrine: Hyperglycemia of critical illness -- SSI, medium scale, every 6 hours Prophylaxis: GI Prophylaxis Protonix 40 mg IV every 24 hours DVT Prophylaxis --SCDs On Coumadin monitor INR/PT Lines: Peripheral IVsx 2. central line Vital Palliative care is following Level 3 Otoniel Dominguez MD Nov 22, 2016 07:13
[2016-11-22] MEDS: RESP: ALBUTEROL 2.5 MG/IPRATROPIUM 0.5 MG NEB (SCH) INH ×2 (07:26→16:57)
[2016-11-22] MEDS: CHLORHEXIDINE 0.12% (ORAL KIT) 15 ML CUP MT SCH ×2 (08:00→20:00)
[2016-11-22] MEDS: CAPTOPRIL 50 MG TAB PO SCH ×3 (08:49→16:47)
[2016-11-22] MEDS: ATENOLOL 50 MG TAB PO SCH ×2 (08:49→22:01)
[2016-11-22] MEDS: predniSONE 10 MG TAB PO SCH ×2 (08:49→22:01)
[2016-11-22] MEDS: SODIUM CHLORIDE 0.9% FLUSH 5 ML FLUSH FLUSH SCH ×2 (08:49→22:01)
[2016-11-22] MEDS: SODIUM CHLORIDE 0.9% FLUSH 5 ML FLUSH IVF SCH (08:49)
[2016-11-22] MEDS: FUROSEMIDE 20 MG TAB PO SCH ×2 (08:49→16:47)
[2016-11-22] MEDS: levETIRAcetam 500 MG TAB PO SCH ×2 (08:49→22:01)
--- NOTE | 2016-11-22 13:07 | HHI.PR ---
Subjective Remarks Had a left thoracentesis and now has a Chest tube on the left. has a New catheter at left upper chest. On O2 2l. Feels OK Objective Vital Signs Date Time Temp Pulse Resp B/P Pulse Ox O2 Delivery O2 Flow Rate FiO2 11/22/16 12:00 59 11/22/16 12:00 98.0 59 22 115/53 100 11/22/16 10:00 71 11/22/16 08:00 66 11/22/16 08:00 97.6 66 24 131/66 98 11/22/16 07:27 97 Nasal Cannula 2.00 11/22/16 06:00 64 11/22/16 04:00 71 11/22/16 04:00 97.7 71 24 127/60 99 11/22/16 02:00 66 11/22/16 00:00 97.6 69 30 127/58 100 11/22/16 00:00 69 11/21/16 23:26 100 Nasal Cannula 2.00 11/21/16 22:00 68 11/21/16 20:00 98.1 80 24 124/60 100 11/21/16 20:00 84 11/21/16 18:00 94 11/21/16 17:33 20 11/21/16 16:00 98.4 71 27 116/58 100 11/21/16 16:00 71 11/21/16 14:00 81 I/O 11/21/16 11/21/16 11/21/16 11/22/16 11/22/16 11/22/16 07:00 15:00 23:00 07:00 15:00 23:00 Intake Total 241 ml 528 ml 1183 ml 304 ml Output Total 250 ml 200 ml 640 ml 332 ml Balance -9 ml 328 ml 543 ml -28 ml Intake Oral 240 ml 480 ml 600 ml 240 ml IV Total 1 ml 48 ml 583 ml 64 ml Output Urine Total 200 ml 200 ml 240 ml 220 ml Chest Tube Drainage Total 50 ml 400 ml 112 ml # Bowel Movements 0 1 1 0 Result Diagram: 11/22/1642111/22/16421 Objective Remarks GENERAL: Elderly male awake and anxious . On o2 HEENT: Pupils are equal and react to light. Oral mucosa, nasal mucosa normal. NECK: Supple. JVP not raised. CHEST: Occ rales at the bases,and wheeze. Decreased breath sounds at bases. Chest tubes X2 on left. CARDIOVASCULAR: S1, S2 normal. ABDOMEN: Benign.No mass. EXTREMITIES: No edema. Neuro, Weak Legs Poor pulses. Assessment and Plan Assessment and Plan IMPRESSION 1. Ventilator dependent respiratory failure. 2. Pleural effusions status post chest tube placement. 3. Congestive heart failure. 4. Atrial fibrillation. 5. Pulmonary HTN Plan : 1. O2 at 2 L. N/C 2. Nebs qid , duoneb. 3. Continue diuretics. 4. Chest tube to drainage 5. CBC , CXR ,BMP in am. 6. Diet as tolerated. 7. D/W Dr Bartlett 8. Prednisone 10 mg bid Paulo Rooney MD Nov 22, 2016 13:07
[2016-11-22] MEDS: WARFARIN SOD 6 MG TAB PO SCH (16:47)
[2016-11-23] VITALS (14 sets, daily range): BP systolic 109–151; BP diastolic 53–67; PULSE 54–78; RESP 19–24; TEMP 96.8–98.1; O2SAT 94–96
[2016-11-23] MEDS: RESP: ALBUTEROL 2.5 MG/IPRATROPIUM 0.5 MG NEB (SCH) INH ×4 (00:04→23:35)
[2016-11-23] MEDS: DEXMEDETOMIDINE INJ 1,000 MCG in SODIUM CHLOR 0.9% 250 ML INJ 240 ML IV SCH (02:11)
[2016-11-23 04:53] LABS: AUTOMATED NEUTROPHIL # 9.4 TH/MM3 (1.8-7.7); BASOPHIL % 0.2 % (0.0-2.0); EOSINOPHIL # 0.1 TH/MM3 (0-0.4); EOSINOPHIL % 0.9 % (0.0-4.0); HEMATOCRIT 33.5 % (39.0-51.0); HEMO FLAGS DIFF FINAL; MEAN CELL VOLUME 98.7 FL (80.0-100.0); MEAN CORPUSCULAR HEMOGLOBIN 33.4 PG (27.0-34.0); MEAN CORPUSCULAR HGB CONC 33.8 % (32.0-36.0); MONO % 7.4 % (0.0-8.0); NEUT % 82.5 % (16.0-70.0); PLATELET COUNT 136 TH/MM3 (150-450); RED BLOOD COUNT 3.39 MIL/MM3 (4.50-5.90); WHITE BLOOD COUNT 11.4 TH/MM3 (4.0-11.0)
[2016-11-23] MEDS: INSULIN NovoLIN REGULAR SUPPLEMENTAL SCALE SQ SCH ×4 (04:55→23:27)
[2016-11-23 04:57] LABS: ALT (GPT) 99 U/L (12-78); ANION GAP 5 MEQ/L (5-15); AST (GOT) 48 U/L (15-37); BICARBONATE 33.8 MEQ/L (21.0-32.0); BLOOD UREA NITROGEN 17 MG/DL (7-18); CHLORIDE 101 MEQ/L (98-107); GLOMERULAR FILTRATION RATE 160 ML/MIN (>89); MAGNESIUM 1.9 MG/DL (1.5-2.5); POTASSIUM 4.3 MEQ/L (3.5-5.1); SODIUM (NA) 140 MEQ/L (136-145)
[2016-11-23 04:58] LABS: INTERNATIONAL NORMALIZED RATIO 1.3 RATIO; PROTHROMBIN TIME - PATIENT 14.8 SEC (9.8-11.6)
[2016-11-23 04:59] LABS: ALKALINE PHOSPHATASE 166 U/L (45-117); TOTAL BILIRUBIN ADULT 0.4 MG/DL (0.2-1.0)
--- NOTE | 2016-11-23 07:12 | HHI.CCPN ---
Subjective Remarks/Hospital Course This is an 81-year-old male who has had multiple readmissions over the past few months for a recurrent right-sided pleural effusion. [facility] with [facility] right-sided pleural effusion as well as hypoxia and somnolence. He was found to have significant hypercarbia and a PCO2 in the 90s. He was initially placed on BiPAP and admitted to the [facility]. He became more somnolent and his oxygen saturation began to decline. At this point a critical care medicine is consulted to evaluate and manage his hypercarbic respiratory failure. Because he is failed his trial of noninvasive positive pressure ventilation, we will move towards intubating the patient. I evaluated the patient and he is essentially unresponsive and obtunded and only minimally withdrawing to pain. I can obtain no additional history from the patient. Subjective: 11/09: Early this a.m. at approximately 06:30 the patient was noted to have a grand mal seizure lasting approximately 60 seconds followed by a small tonic- clonic seizure lasting 30 seconds involving the lower extremities. The patient received Ativan 2 mg with cessation of seizure activity. Stat CT of the brain without contrast was obtained showed no acute abnormality. EEG was obtained previously awaiting results. Prior to the event the patient was noted to be on a fentanyl infusion at approximately 250 mcg/h. The patient was noted to be a GCS 10T, squeezing my hand. 11/10: The patient was noted to have multiple seizures requiring interventions with IV Ativan. Described as tonic-clonic in nature with eyes rolled back in the head. Gross motor movement shaking 4 extremities. Today the patient was noted to have a positive growth and blood cultures. WBC count elevated. Ammonia level was drawn less than 10, lactate was noted to be 2.2 this morning. Pleural fluid culture negative growth to date. 11/11: On stimulation patient continues to have jerking movement of all extremities. EEG negative for seizures. Check MRI today. Dr. Kirkland is neurology. Remains on 2 mcg/min of Levophed 11/12: Per neurologist, patient had witnessed with tonic convulsions started over right arm and propagated to left UE and both LE with fluttering of the eyes and upward gaze.Loaded with Dilantin iv infusion and a maintenance dose of 100mg Q8h, Stat EEG negative for seizures. Its unclear to me whether it is seizure or myoclonus 11/13: No change in neuro status. Continues to have jerking movements off lower extremity when stimulated. EEG 2 have been negative for seizures. We'll hold sedation for neuro exam 11/14: On sedation hold opens eyes. Appears to follow commands and upper extremity. Still has some tremulousness of the extremities. Remains off pressors 11/15: Remains on Precedex intermittently following commands for RN. Placed on CPAP tolerating well. No evidence of myoclonus now 11/16: On 1.1 mcg/kg/hr of Precedex. No spontaneous eye opening but moves all extremities spontaneously. Not following commands will reduce Precedex, and start weaning trials 11/17: Mental status significantly improved patient following commands on Precedex. However chest tube was dislodged yesterday evening, now has bilateral pleural effusions left is more than right, appears large. Vent day 10 11/18: Off Precedex following commands upper extremities. But continues to fail C Pap trials due to tachypnea and low tidal volumes. Status post large-volume left thoracentesis yesterday with 1.2 L of old blood-tinged fluid removed. 11/19: Overnight agitated, requiring maximum dose Precedex 1.4 mcg per kg per hr and restraints. Currently heavily sedated. Chest x-ray shows increasing left effusion confirmed by ultrasound. We'll proceed with left pigtail catheter after consent. Continue to hold Coumadin due to hemorrhagic effusion 11/20: Left pigtail chest tube placed yesterday with a 30 mL output. Mentation improving now oriented follows commands. Requiring oxygen by nasal cannula. Slight increase in right effusion seen on chest x-ray 11/21: CT chest shows moderate left-sided pneumothorax. Eating continues to be slightly tachypneic but patient appears comfortable. Agitated requiring 4 point restraints. Also a liver enzymes are increasing most likely secondary to Dilantin. I will DC Dilantin and start him on Keppra 11/22 No acute events overnight. On Precedex drip. Afebrile. CXR this morning showed no evidence of PTX. 11/23 Patient is on Precedex 0.7 awake and alert on 2L oxygen with good sats. Objective Vital Signs Date Time Temp Pulse Resp B/P Pulse Ox O2 Delivery O2 Flow Rate FiO2 11/23/16 02:00 74 11/23/16 00:00 96.8 23 109/53 94 11/22/16 19:02 Nasal Cannula 2.00 11/20/16 00:00 30 Intake and Output 11/22/16 11/22/16 11/23/16 08:00 16:00 00:00 Intake Total 304 ml 323 ml 221 ml Output Total 332 ml 380 ml 435 ml Balance -28 ml -57 ml -214 ml Result Diagram: 11/23/16 0327 11/23/16 0327 Other Results Laboratory Tests Test 11/23/16 03:27 White Blood Count 11.4 TH/MM3 Red Blood Count 3.39 MIL/MM3 Hemoglobin 11.3 GM/DL Hematocrit 33.5 % Mean Corpuscular Volume 98.7 FL Mean Corpuscular Hemoglobin 33.4 PG Mean Corpuscular Hemoglobin 33.8 % Concent Red Cell Distribution Width 15.0 % Platelet Count 136 TH/MM3 Mean Platelet Volume 8.8 FL Neutrophils (%) (Auto) 82.5 % Lymphocytes (%) (Auto) 9.0 % Monocytes (%) (Auto) 7.4 % Eosinophils (%) (Auto) 0.9 % Basophils (%) (Auto) 0.2 % Neutrophils # (Auto) 9.4 TH/MM3 Lymphocytes # (Auto) 1.0 TH/MM3 Monocytes # (Auto) 0.8 TH/MM3 Eosinophils # (Auto) 0.1 TH/MM3 Basophils # (Auto) 0.0 TH/MM3 CBC Comment DIFF FINAL Differential Comment Prothrombin Time 14.8 SEC Prothromb Time International 1.3 RATIO Ratio Sodium Level 140 MEQ/L Potassium Level 4.3 MEQ/L Chloride Level 101 MEQ/L Carbon Dioxide Level 33.8 MEQ/L Anion Gap 5 MEQ/L Blood Urea Nitrogen 17 MG/DL Creatinine 0.50 MG/DL Estimat Glomerular Filtration 160 ML/MIN Rate Random Glucose 97 MG/DL Calcium Level 8.5 MG/DL Phosphorus Level 2.6 MG/DL Magnesium Level 1.9 MG/DL Total Bilirubin 0.4 MG/DL Aspartate Amino Transf 48 U/L (AST/SGOT) Alanine Aminotransferase 99 U/L (ALT/SGPT) Alkaline Phosphatase 166 U/L Total Protein 5.5 GM/DL Albumin 2.2 GM/DL Imaging Last Impressions Chest X-Ray 11/22/16 0600 Signed Impressions: Service Date/Time: Tuesday, November 22, 2016 03:54 - CONCLUSION: 1. Left chest tube remains present and no pneumothorax is visualized. 2. Stable severe enlargement of the cardiac silhouette. 3. Stable small right pleural effusion with associated compressive atelectasis and/or consolidation. There is also stable atelectasis versus consolidation at the left lung base. Dhruv Wallace MD Chest CT 11/20/16 0000 Signed Impressions: Service Date/Time: October 09:37 - CONCLUSION: 1. Left pneumothorax without tension 2. Small loculated effusion medial right base 3. Pericardial effusion as above Jimi Chavez MD Liver Ultrasound 11/17/16 0000 Signed Impressions: Service Date/Time: Thursday, November 17, 2016 15:58 - CONCLUSION: 1. Increased liver echogenicity characteristic of mild fatty infiltration or hepatocellular disease. 2. Trace free fluid in the abdomen. Pleural effusions. Mild gallbladder wall thickening. Chaka Campos MD Brain MRI 11/11/16 0000 Signed Impressions: Service Date/Time: Friday, November 11, 2016 12:53 - CONCLUSION: 1. 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 2. 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 The others would be consistent with punctate, remote areas of hemorrhage suggesting possibility of amyloid. Eitan Mendoza MD Head CT 11/09/16 0000 Signed Impressions: Service Date/Time: Wednesday, November 09, 2016 10:29 - CONCLUSION: Stable CT scan of the brain. Pradeep Rodriguez MD Chest Tube Insertion 11/08/16 0000 Signed Impressions: Service Date/Time: Tuesday, November 08, 2016 12:46 - CONCLUSION: Uncomplicated right chest tube placement as above. 1500 cc of fluid removed and sent for culture. Post CT scan reveals a large. pleural rind . The right lung may well not reexpanded. A.m. chest x-ray is pending. Cultures pending. Kun Mendoza MD FACR CT Angiography 11/07/16 0000 Signed Impressions: Service Date/Time: October 20:40 - CONCLUSION: 1. No pulmonary embolus. 2. Marked cardiac enlargement, especially the atria. 3. Bilateral effusions and atelectasis about the same on the left and considerably worse on the right. Right pneumothorax seen previously has resolved. Dhruv Foster MD Objective Remarks GENERAL: This is a elderly critically ill-appearing cachectic male, off all sedation. Intermittently agitated, requiring restraints HEENT: Normocephalic. Atraumatic. Pupils equal, round, reactive. NECK: Trachea is midline. No JVD. On [place] oxygen CHEST: Right sided chest tube dislodged 11/16/16. Air entry diminished bilaterally. Moderate to large L effusion-s/p L chest tube 11/19/16 CARDIOVASCULAR: Normal rate, regular rhythm. No appreciable murmurs. ABDOMEN: After, nontender, nondistended. No guarding. MUSCULOSKELETAL: 1+ peripheral edema. Distal pulses 2+ NEUROLOGICAL: Alert awake and oriented. Moves all 4 extremities. Intermittently agitated requiring restraints Date of Insertion: Nov 08, 2016 Side: Right Location: Internal, Jugular A/P Assessment and Plan Assessment: This is an 81-year-old male with history of prior recurrent right pleural effusions and COPD now presents with acute hypercarbic and hypoxic respiratory failure which has failed noninvasive positive pressure ventilation. Intubated and placed on mechanical ventilation. Covering COPD exacerbation, as well as healthcare associated pneumonia given his history of being on Levaquin [facility]. He remains critically ill. Not sure that we will be able to get him through this hospitalization, and his recurrent respiratory failures are clearly making him more deconditioned every time he comes in the hospital. Despite this, daughter continues to request aggressive measures. Extubated 11/18/16 Plan by systems: Neurologic: Myoclonus-resolved Agitated delirium CO2 narcosis Metabolic encephalopathy Mild dementia -Wean off Precedex drip and monitor neuro status. Use Ativan PRN for breakthrough seizures /myoclonus -EEG negative 11/10/15, 11/11/16 (moderate to severe encephalopathy, no seizure) -11/08 CT of the brain-no acute abnormality. 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 Question of amyloid -On Keppra 500 mg by mouth twice a day Respiratory: Acute hypercarbic and hypoxic respiratory failure-extubated Recurrent right pleural effusion s/p chest tube placement-dislodged 11/17 New moderate left pneumothorax Right pneumothorax-resolved Large hemorrhagic left pleural effusion status post thoracentesis 11/17/16, pigtail chest tube 11/19/16 Healthcare associated pneumonia COPD exacerbation Continue prednisone per Doe [employer] every 8 and every 2 when necessary --Pulmonary Dr. Bone, -s/p anterior left anterior pigtail chest tube Head of bed at 30, wean FiO2 for goal SPO2 greater than 90% Extubated 11/18/16 --Status post left thoracentesis 11/17/16 with 1.2 L of hemorrhagic fluid removed. CXR/US shows reaccumulation of left pleural fluid. pigtail chest tube placed 11/19/1611/08 S/P CT guided IR drainage of recurrent right posterior pleural effusion, unable to perform pleurodesis, accidentally dislodged --s/p R pig tail chest tube for large L pl effusion 11/19/16 CXR 11/22 showed no evidence of PTX, monitor CT drainage ( Left lateral CT drained 220 ml overnight) Cardiovascular: Severe pulmonary hypertension (PASP 85 on Echo 10/08/16, repeat echo 11/19/16 PASP was 47) A. fib RVR Hypertension Moderate to severe TR Continue with BP meds- (captopril and atenolol 11/14/16) --Monitor HR and BP keep MAP>65mmHg --Repeat 2d echo 11/19/16 PASP was 47 compared to 85 on 10/18/16. Renal: Hypernatremia- resolved Monitor renal function, I/O's, electrolytes replacement per protocol. -On Lasix 20mg BID FEN/GI: Acute intravascular volume overload Acute protein calorie malnutritionsevere Elevated LFT's Heart healthy and vegan diet. -Monitor LFT's...trending down Heme/ID: Healthcare associated pneumonia, staph aureus in sputum Leukocytosis- Resolved -Off abx , ID is following. Monitor for signs of infections ( Fever, WBC) 11/08 blood -micrococcus 1/4 possible contaminant - Urine cultures-NGTD --Sputum cx 11/12/16 with staph aureus Endocrine: Hyperglycemia of critical illness -- SSI, medium scale, every 6 hours Prophylaxis: GI Prophylaxis Protonix 40 mg IV every 24 hours DVT Prophylaxis --SCDs On Coumadin monitor INR/PT- INR 1.3 today Lines: Peripheral IVsx 2. central line Vital Palliative care is following Level 3 Otoniel Dominguez MD Nov 23, 2016 07:12
[2016-11-23] MEDS: CHLORHEXIDINE 0.12% (ORAL KIT) 15 ML CUP MT SCH ×2 (08:00→20:00)
[2016-11-23] MEDS: SODIUM CHLORIDE 0.9% FLUSH 5 ML FLUSH IVF SCH (09:00)
[2016-11-23] MEDS: levETIRAcetam 500 MG TAB PO SCH ×2 (09:16→21:38)
[2016-11-23] MEDS: ATENOLOL 50 MG TAB PO SCH ×2 (09:16→21:38)
[2016-11-23] MEDS: SODIUM CHLORIDE 0.9% FLUSH 5 ML FLUSH FLUSH SCH ×2 (09:16→21:00)
[2016-11-23] MEDS: FUROSEMIDE 20 MG TAB PO SCH ×2 (09:16→16:31)
[2016-11-23] MEDS: predniSONE 10 MG TAB PO SCH ×2 (09:16→21:38)
[2016-11-23] MEDS: CAPTOPRIL 50 MG TAB PO SCH ×3 (09:18→16:31)
--- NOTE | 2016-11-23 12:52 | HHI.PR ---
Subjective Remarks Had a left thoracentesis and now has a Chest tube on the left. has a New catheter at left upper chest. CXR is better.On O2 2l. Feels OK. Taking his diet. Objective Vital Signs Date Time Temp Pulse Resp B/P Pulse Ox O2 Delivery O2 Flow Rate FiO2 11/23/16 12:00 97.9 70 19 143/63 96 11/23/16 08:00 98.1 66 24 131/63 96 11/23/16 07:38 96 Nasal Cannula 2.00 11/23/16 06:00 65 11/23/16 04:00 66 11/23/16 04:00 96.8 66 22 127/62 96 11/23/16 02:00 74 11/23/16 00:00 54 11/23/16 00:00 96.8 54 23 109/53 94 11/22/16 22:00 66 11/22/16 20:00 98.9 64 25 99/52 98 11/22/16 20:00 64 11/22/16 19:02 97 Nasal Cannula 2.00 11/22/16 18:00 72 11/22/16 16:00 60 11/22/16 16:00 97.4 60 18 110/53 97 11/22/16 14:00 60 I/O 11/22/16 11/22/16 11/22/16 11/23/16 11/23/16 11/23/16 07:00 15:00 23:00 07:00 15:00 23:00 Intake Total 304 ml 323 ml 221 ml 155 ml Output Total 332 ml 380 ml 435 ml 210 ml Balance -28 ml -57 ml -214 ml -55 ml Intake Oral 240 ml 240 ml 120 ml 120 ml IV Total 64 ml 83 ml 101 ml 35 ml Output Urine Total 220 ml 300 ml 275 ml 150 ml Chest Tube Drainage Total 112 ml 80 ml 160 ml 60 ml # Bowel Movements 0 0 0 0 Result Diagram: 11/23/16 0327 11/23/16326 Objective Remarks GENERAL: Elderly male awake and anxious . On o2 HEENT: Pupils are equal and react to light. Oral mucosa, nasal mucosa normal. NECK: Supple. JVP not raised. CHEST: Occ rales at the bases,and mild wheeze. Decreased breath sounds at bases. Chest tubes X2 on left. CARDIOVASCULAR: S1, S2 normal. ABDOMEN: Benign.No mass. EXTREMITIES: No edema. Neuro, Weak Legs Poor pulses. Assessment and Plan Assessment and Plan IMPRESSION 1. Ventilator dependent respiratory failure.Resolved 2. Pleural effusions status post chest tube placement. 3. Congestive heart failure. 4. Atrial fibrillation. 5. Pulmonary HTN Plan : 1. O2 at 2 L. N/C 2. Nebs qid , duoneb. 3. Continue diuretics. 4. Chest tube to drainage 5. CXR ,BMP in am. 6. Diet as tolerated. 7. IS at bedside qid 8. Prednisone 10 mg bid Paulo Rooney MD Nov 23, 2016 12:52
--- NOTE | 2016-11-23 13:54 | RADRPT ---
EXAM DATE/TIME: 11/23/2016 13:00 [place] COMPARISON: CT THORAX W/O CONTRAST, November 21, 2016, 9:37. CHEST SINGLE AP, November 22 7, 3:54. INDICATIONS : Evaluate for pneumothorax. MEDICAL HISTORY : Hypertension. Cardiovascular disease. SURGICAL HISTORY : None. ENCOUNTER: Initial ACUITY: 1 day PAIN SCORE: Non-responsive. LOCATION: Bilateral chest FINDINGS: The heart remains enlarged with mild interstitial edema and consolidative changes developing on the r ight. There is no pneumothorax. CONCLUSION: 1. Cardiomegaly with mild congestive failure. 2. Developing consolidative changes on the right. 3. No pneumothorax. Kun Mendoza MD FACR on November 23, 2016 at 13:47 Board Certified Radiologist. This report was verified electronically.
[2016-11-23] MEDS ORDERED: WARFARIN SOD 2.5 MG TAB PO ONE (16:00)
[2016-11-23] MEDS: WARFARIN SOD 6 MG TAB PO SCH (16:31)
[2016-11-23] MEDS: HALOPERIDOL LACTATE 5 MG/ML AMP IV PRN (23:28)
[2016-11-24] VITALS (14 sets, daily range): BP systolic 117–154; BP diastolic 56–84; PULSE 62–91; RESP 25–33; TEMP 89.1–98.5; O2SAT 90–96
[2016-11-24] MEDS: LORazepam 2 MG/ML VIAL IV PUSH PRN ×2 (00:24→22:09)
[2016-11-24] MEDS: INSULIN NovoLIN REGULAR SUPPLEMENTAL SCALE SQ SCH ×3 (05:27→18:00)
--- NOTE | 2016-11-24 07:23 | HHI.CCPN ---
Subjective Remarks/Hospital Course This is an 81-year-old male who has had multiple readmissions over the past few months for a recurrent right-sided pleural effusion. He represents from his group home facility with recurrent right-sided pleural effusion as well as hypoxia and somnolence. He was found to have significant hypercarbia and a PCO2 in the 90s. He was initially placed on BiPAP and admitted to the [facility]. He became more somnolent and his oxygen saturation began to decline. At this point a critical care medicine is consulted to evaluate and manage his hypercarbic respiratory failure. Because he is failed his trial of noninvasive positive pressure ventilation, we will move towards intubating the patient. I evaluated the patient and he is essentially unresponsive and obtunded and only minimally withdrawing to pain. I can obtain no additional history from the patient. Subjective: 11/09: Early this a.m. at approximately 06:30 the patient was noted to have a grand mal seizure lasting approximately 60 seconds followed by a small tonic- clonic seizure lasting 30 seconds involving the lower extremities. The patient received Ativan 2 mg with cessation of seizure activity. Stat CT of the brain without contrast was obtained showed no acute abnormality. EEG was obtained previously awaiting results. Prior to the event the patient was noted to be on a fentanyl infusion at approximately 250 mcg/h. The patient was noted to be a GCS 10T, squeezing my hand. 11/10: The patient was noted to have multiple seizures requiring interventions with IV Ativan. Described as tonic-clonic in nature with eyes rolled back in the head. Gross motor movement shaking 4 extremities. Today the patient was noted to have a positive growth and blood cultures. WBC count elevated. Ammonia level was drawn less than 10, lactate was noted to be 2.2 this morning. Pleural fluid culture negative growth to date. 11/11: On stimulation patient continues to have jerking movement of all extremities. EEG negative for seizures. Check MRI today. Dr. Kirkland is neurology. Remains on 2 mcg/min of Levophed 11/12: Per neurologist, patient had witnessed with tonic convulsions started over right arm and propagated to left UE and both LE with fluttering of the eyes and upward gaze.Loaded with Dilantin iv infusion and a maintenance dose of 100mg Q8h, Stat EEG negative for seizures. Its unclear to me whether it is seizure or myoclonus 11/13: No change in neuro status. Continues to have jerking movements off lower extremity when stimulated. EEG 2 have been negative for seizures. We'll hold sedation for neuro exam 11/14: On sedation hold opens eyes. Appears to follow commands and upper extremity. Still has some tremulousness of the extremities. Remains off pressors 11/15: Remains on Precedex intermittently following commands for RN. Placed on CPAP tolerating well. No evidence of myoclonus now 11/16: On 1.1 mcg/kg/hr of Precedex. No spontaneous eye opening but moves all extremities spontaneously. Not following commands will reduce Precedex, and start weaning trials 11/17: Mental status significantly improved patient following commands on Precedex. However chest tube was dislodged yesterday evening, now has bilateral pleural effusions left is more than right, appears large. Vent day 10 11/18: Off Precedex following commands upper extremities. But continues to fail C Pap trials due to tachypnea and low tidal volumes. Status post large-volume left thoracentesis yesterday with 1.2 L of old blood-tinged fluid removed. 11/19: Overnight agitated, requiring maximum dose Precedex 1.4 mcg per kg per hr and restraints. Currently heavily sedated. Chest x-ray shows increasing left effusion confirmed by ultrasound. We'll proceed with left pigtail catheter after consent. Continue to hold Coumadin due to hemorrhagic effusion 11/20: Left pigtail chest tube placed yesterday with a 30 mL output. Mentation improving now oriented follows commands. Requiring oxygen by nasal cannula. Slight increase in right effusion seen on chest x-ray 11/21: CT chest shows moderate left-sided pneumothorax. Eating continues to be slightly tachypneic but patient appears comfortable. Agitated requiring 4 point restraints. Also a liver enzymes are increasing most likely secondary to Dilantin. I will DC Dilantin and start him on Keppra 11/22 No acute events overnight. On Precedex drip. Afebrile. CXR this morning showed no evidence of PTX. 11/23 Patient is on Precedex 0.7 awake and alert on 2L oxygen with good sats. 11/24 Patient is off Precedex drip. Afebrile. Awake and alert. Objective Vital Signs Date Time Temp Pulse Resp B/P Pulse Ox O2 Delivery O2 Flow Rate FiO2 11/24/16 04:00 70 11/24/16 04:00 96.8 28 151/65 95 11/23/16 19:31 Nasal Cannula 2.00 Intake and Output 11/23/16 11/23/16 11/24/16 08:00 16:00 00:00 Intake Total 155 ml 333 ml 120 ml Output Total 210 ml 700 ml 900 ml Balance -55 ml -367 ml -780 ml Result Diagram: 11/23/16 0327 11/23/16 0327 Imaging Last Impressions Chest X-Ray 11/23/16 0000 Signed Impressions: Service Date/Time: Wednesday, November 23, 2016 13:00 - CONCLUSION: 1. Cardiomegaly with mild congestive failure. 2. Developing consolidative changes on the right. 3. No pneumothorax. Kun Mendoza MD FACR Chest CT 11/20/16 0000 Signed Impressions: Service Date/Time: October 09:37 - CONCLUSION: 1. Left pneumothorax without tension 2. Small loculated effusion medial right base 3. Pericardial effusion as above Jimi Chavez MD Liver Ultrasound 11/17/16 0000 Signed Impressions: Service Date/Time: Thursday, November 17, 2016 15:58 - CONCLUSION: 1. Increased liver echogenicity characteristic of mild fatty infiltration or hepatocellular disease. 2. Trace free fluid in the abdomen. Pleural effusions. Mild gallbladder wall thickening. Chaka Campos MD Brain MRI 11/11/16 0000 Signed Impressions: Service Date/Time: Friday, November 11, 2016 12:53 - CONCLUSION: 1. 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 2. 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 The others would be consistent with punctate, remote areas of hemorrhage suggesting possibility of amyloid. Eitan Mendoza MD Head CT 11/09/16 0000 Signed Impressions: Service Date/Time: Wednesday, November 09, 2016 10:29 - CONCLUSION: Stable CT scan of the brain. Pradeep Rodriguez MD Chest Tube Insertion 11/08/16 0000 Signed Impressions: Service Date/Time: Tuesday, November 08, 2016 12:46 - CONCLUSION: Uncomplicated right chest tube placement as above. 1500 cc of fluid removed and sent for culture. Post CT scan reveals a large. pleural rind . The right lung may well not reexpanded. A.m. chest x-ray is pending. Cultures pending. Kun Mendoza MD FACR CT Angiography 11/07/16 0000 Signed Impressions: Service Date/Time: October 20:40 - CONCLUSION: 1. No pulmonary embolus. 2. Marked cardiac enlargement, especially the atria. 3. Bilateral effusions and atelectasis about the same on the left and considerably worse on the right. Right pneumothorax seen previously has resolved. Dhruv Foster MD Objective Remarks GENERAL: This is a elderly 81 yo lying in be din NAD HEENT: Normocephalic. Atraumatic. Pupils equal, round, reactive. NECK: Trachea is midline. No JVD. On NC oxygen CHEST: Right sided chest tube dislodged 11/16/16. Air entry diminished bilaterally. CARDIOVASCULAR: Normal rate, regular rhythm. No appreciable murmurs. ABDOMEN: After, nontender, nondistended. No guarding. MUSCULOSKELETAL: 1+ peripheral edema. Distal pulses 2+ NEUROLOGICAL: Alert awake and oriented. Date of Insertion: Nov 08, 2016 Side: Right Location: Internal, Jugular A/P Assessment and Plan Assessment: This is an 81-year-old male with history of prior recurrent right pleural effusions and COPD now presents with acute hypercarbic and hypoxic respiratory failure which has failed noninvasive positive pressure ventilation. Intubated and placed on mechanical ventilation. Covering COPD exacerbation, as well as healthcare associated pneumonia given his history of being on Levaquin at his group home facility. He remains critically ill. Not sure that we will be able to get him through this hospitalization, and his recurrent respiratory failures are clearly making him more deconditioned every time he comes in the hospital. Despite this, daughter continues to request aggressive measures. Extubated 11/18/16 Plan by systems: Neurologic: Myoclonus-resolved Agitated delirium CO2 narcosis Metabolic encephalopathy Mild dementia -Off Precedex drip and monitor neuro status. Use Ativan PRN for breakthrough seizures /myoclonus -EEG negative 11/10/15, 11/11/16 (moderate to severe encephalopathy, no seizure) -11/08 CT of the brain-no acute abnormality. 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 Question of amyloid -On Keppra 500 mg by mouth twice a day Respiratory: Acute hypercarbic and hypoxic respiratory failure-extubated Recurrent right pleural effusion s/p chest tube placement-dislodged 11/17 New moderate left pneumothorax Right pneumothorax-resolved Large hemorrhagic left pleural effusion status post thoracentesis 11/17/16, pigtail chest tube 11/19/16 Healthcare associated pneumonia COPD exacerbation Continue prednisone per Dr. Guzmán, DuoNeb every 8 and every 2 when necessary --Pulmonary Dr. Bone, -s/p anterior left anterior pigtail chest tube Head of bed at 30, wean FiO2 for goal SPO2 greater than 90% Extubated 11/18/16 --Status post left thoracentesis 11/17/16 with 1.2 L of hemorrhagic fluid removed. CXR/US shows reaccumulation of left pleural fluid. pigtail chest tube placed 11/19/1611/08 S/P CT guided IR drainage of recurrent right posterior pleural effusion, unable to perform pleurodesis, accidentally dislodged --s/p R pig tail chest tube for large L pl effusion 11/19/16 CXR 11/23 showed no evidence of PTX, consolidative changes on right, monitor CT drainage ( Left lateral CT drained 420 ml overnight) Cardiovascular: Severe pulmonary hypertension (PASP 85 on Echo 10/08/16, repeat echo 11/19/16 PASP was 47) A. fib RVR Hypertension Moderate to severe TR Continue with BP meds- (captopril and atenolol 11/14/16) --Monitor HR and BP keep MAP>65mmHg --Repeat 2d echo 11/19/16 PASP was 47 compared to 85 on 10/18/16. Renal: Hypernatremia- resolved Monitor renal function, I/O's, electrolytes replacement per protocol. -On Lasix 20mg BID FEN/GI: Acute intravascular volume overload Acute protein calorie malnutritionsevere Elevated LFT's Heart healthy and vegan diet. -Monitor LFT's...trending down Heme/ID: Healthcare associated pneumonia, staph aureus in sputum Leukocytosis- Resolved -Off abx , ID is following. Monitor for signs of infections ( Fever, WBC) 11/08 blood -micrococcus 1/4 possible contaminant - Urine cultures-NGTD --Sputum cx 11/12/16 with staph aureus Endocrine: Hyperglycemia of critical illness -- SSI, medium scale, every 6 hours Prophylaxis: GI Prophylaxis Protonix 40 mg IV every 24 hours DVT Prophylaxis --SCDs On Coumadin monitor INR/PT- INR 1.3 11/23 Lines: Peripheral IVsx 2. central line Vital Palliative care is following Will sign off and transfer care to [facility] Level 3 Otoniel Dominguez MD Nov 24, 2016 07:23
[2016-11-24] MEDS: RESP: ALBUTEROL 2.5 MG/IPRATROPIUM 0.5 MG NEB (SCH) INH ×3 (07:48→23:44)
[2016-11-24] MEDS: CHLORHEXIDINE 0.12% (ORAL KIT) 15 ML CUP MT SCH ×2 (08:00→20:00)
[2016-11-24] MEDS: levETIRAcetam 500 MG TAB PO SCH ×2 (08:57→22:08)
[2016-11-24] MEDS: FUROSEMIDE 20 MG TAB PO SCH ×2 (08:57→17:44)
[2016-11-24] MEDS: predniSONE 10 MG TAB PO SCH ×2 (08:57→22:08)
[2016-11-24] MEDS: ATENOLOL 50 MG TAB PO SCH ×2 (08:57→22:08)
[2016-11-24] MEDS: SODIUM CHLORIDE 0.9% FLUSH 5 ML FLUSH IVF SCH (09:00)
[2016-11-24] MEDS: SODIUM CHLORIDE 0.9% FLUSH 5 ML FLUSH FLUSH SCH ×2 (09:00→21:00)
[2016-11-24 09:10] LABS: BLOOD GAS BASE EXCESS 9.7 mmol/L (-2-2); BLOOD GAS CARBOXYHEMOGLOBIN 1.7 % (0-4); BLOOD GAS HCO3 35 mmol/L (22-26); BLOOD GAS METHEMOGLOBIN 1.1 % (0-2); BLOOD GAS O2 HGB SATURATION 94 % (90-100); BLOOD GAS OXYGEN CONTENT 15.6 Vol % (12.0-20.0); BLOOD GAS PCO2 58 mmHg (38-42); BLOOD GAS PO2 86 mmHg (61-120); BLOOD GAS TOTAL HGB 11.8 G/DL (12.0-16.0); CRITICAL VALUE YES; DRAW SITE LT RADIAL; LITER FLOW 2 L/M; NUMBER OF ARTERIAL PUNCTURES 1; OXYGEN DEVICE NASAL CANNULA; STAT NO; TEMP CORR TO 98.6; ULNAR PULSE PRESENT
[2016-11-24] MEDS: CAPTOPRIL 50 MG TAB PO SCH (09:25)
[2016-11-24 13:19] LABS: AUTOMATED NEUTROPHIL # 8.7 TH/MM3 (1.8-7.7); BASOPHIL # 0.1 TH/MM3 (0-0.2); BASOPHIL % 0.5 % (0.0-2.0); EOSINOPHIL # 0.1 TH/MM3 (0-0.4); EOSINOPHIL % 0.5 % (0.0-4.0); HEMATOCRIT 35.1 % (39.0-51.0); HEMO FLAGS DIFF FINAL; LYMPH % 7.9 % (9.0-44.0); LYMPHOCYTE # 0.8 TH/MM3 (1.0-4.8); MEAN CELL VOLUME 98.3 FL (80.0-100.0); MEAN CORPUSCULAR HEMOGLOBIN 33.2 PG (27.0-34.0); MEAN CORPUSCULAR HGB CONC 33.8 % (32.0-36.0); MONO % 7.1 % (0.0-8.0); PLATELET COUNT 170 TH/MM3 (150-450); RED BLOOD COUNT 3.58 MIL/MM3 (4.50-5.90); RED CELL DISTRIBUTION WIDTH 15.2 % (11.6-17.2); WHITE BLOOD COUNT 10.4 TH/MM3 (4.0-11.0)
--- NOTE | 2016-11-24 13:24 | HHI.PR ---
Subjective Remarks Has a Chest tube on the left.and a New catheter at left upper chest. CXR is better.On O2 2l. Feels OK. Taking his diet. Objective Vital Signs Date Time Temp Pulse Resp B/P Pulse Ox O2 Delivery O2 Flow Rate FiO2 11/24/16 10:00 62 11/24/16 08:00 98.5 70 25 138/60 94 11/24/16 08:00 75 11/24/16 07:48 95 Nasal Cannula 3.00 11/24/16 06:00 75 11/24/16 04:00 70 11/24/16 04:00 96.8 70 28 151/65 95 11/24/16 02:00 74 11/24/16 00:00 98.2 91 31 154/67 96 11/24/16 00:00 91 11/23/16 22:00 78 11/23/16 20:00 78 11/23/16 20:00 98.0 78 23 151/67 94 11/23/16 19:31 96 Nasal Cannula 2.00 11/23/16 18:00 73 11/23/16 16:00 77 11/23/16 16:00 97.9 77 22 134/64 95 11/23/16 14:00 74 I/O 11/23/16 11/23/16 11/23/16 11/24/16 11/24/16 11/24/16 07:00 15:00 23:00 07:00 15:00 23:00 Intake Total 155 ml 333 ml 120 ml 0 ml Output Total 210 ml 700 ml 900 ml 270 ml Balance -55 ml -367 ml -780 ml -270 ml Intake Oral 120 ml 333 ml 120 ml 0 ml IV Total 35 ml 0 ml 0 ml Output Urine Total 150 ml 500 ml 700 ml 200 ml Stool Total 0 ml Chest Tube Drainage Total 60 ml 200 ml 200 ml 70 ml # Bowel Movements 0 0 0 0 Result Diagram: 11/24/16 1303 11/23/16 0327 Objective Remarks GENERAL: Elderly male awake and anxious . On o2 HEENT: Pupils are equal and react to light. Oral mucosa, nasal mucosa normal. NECK: Supple. JVP not raised. CHEST: mild wheeze. Decreased breath sounds at bases. Chest tubes X2 on left. CARDIOVASCULAR: S1, S2 normal. ABDOMEN: Benign.No mass. EXTREMITIES: No edema. Neuro, Weak Legs Poor pulses.Alert and talking Assessment and Plan Assessment and Plan IMPRESSION 1. Ventilator dependent respiratory failure.Resolved 2. Pleural effusions status post chest tube placement. 3. Congestive heart failure. 4. Atrial fibrillation. 5. Pulmonary HTN Plan : 1. O2 at 2 L. N/C 2. Nebs qid , duoneb. 3. Continue diuretics. 4. Chest tube to drainage 5. CXR ,BMP in am. 6. Diet as tolerated. 7. IS at bedside qid 8. Prednisone 10 mg bid 9. D/C Upper chest tube after clamping and CXR. Paulo Rooney MD Nov 24, 2016 13:24
[2016-11-24 13:27] LABS: INTERNATIONAL NORMALIZED RATIO 1.4 RATIO; PROTHROMBIN TIME - PATIENT 15.6 SEC (9.8-11.6)
[2016-11-24 13:41] LABS: ALKALINE PHOSPHATASE 193 U/L (45-117); ALT (GPT) 106 U/L (12-78); ANION GAP 8 MEQ/L (5-15); BICARBONATE 33.8 MEQ/L (21.0-32.0); CHLORIDE 100 MEQ/L (98-107); GLOMERULAR FILTRATION RATE 137 ML/MIN (>89); SODIUM (NA) 142 MEQ/L (136-145); TOTAL BILIRUBIN ADULT 0.5 MG/DL (0.2-1.0)
[2016-11-24 13:42] LABS: AST (GOT) 101 U/L (15-37); BLOOD UREA NITROGEN 15 MG/DL (7-18); MAGNESIUM 1.9 MG/DL (1.5-2.5); POTASSIUM 5.6 MEQ/L (3.5-5.1)
[2016-11-24] MEDS: WARFARIN SOD 6 MG TAB PO SCH (17:44)
[2016-11-25] VITALS (17 sets, daily range): BP systolic 105–213; BP diastolic 52–97; PULSE 74–101; RESP 18–40; TEMP 97.6–97.9; O2SAT 92–100
[2016-11-25] MEDS: INSULIN NovoLIN REGULAR SUPPLEMENTAL SCALE SQ SCH ×4 (06:00→18:00)
--- NOTE | 2016-11-25 06:07 | RADRPT ---
EXAM DATE/TIME: 11/25/2016 04:04 [facility] COMPARISON: CHEST SINGLE AP, November 23, 2016, 13:00. INDICATIONS : Shortness of breath, possible pulmonary disease. MEDICAL HISTORY : Hypertension. Cardiovascular disease. SURGICAL HISTORY : None. ENCOUNTER: Subsequent ACUITY: 2 weeks PAIN SCORE: Non-responsive. LOCATION: Bilateral chest FINDINGS: A single portable frontal view of the chest shows volume loss and consolidation involving the right l meño. There is shift of the mediastinal structures towards that side. Heart remains mildly enlarged. L eft lung is clear. Left thoracostomy tube noted. CONCLUSION: Volume loss and consolidation involving the right lung suggesting collapse of the right lung. Cardiomary connell. Charbel Fuchs Jr., MD on November 25, 2016 at 6:05 Board Certified Radiologist. This report was verified electronically.
[2016-11-25 06:13] LABS: AUTOMATED NEUTROPHIL # 10.4 TH/MM3 (1.8-7.7); BASOPHIL # 0.1 TH/MM3 (0-0.2); EOSINOPHIL # 0.1 TH/MM3 (0-0.4); EOSINOPHIL % 0.6 % (0.0-4.0); LYMPH % 10.8 % (9.0-44.0); LYMPHOCYTE # 1.4 TH/MM3 (1.0-4.8); MEAN CELL VOLUME 98.1 FL (80.0-100.0); MEAN CORPUSCULAR HGB CONC 33.7 % (32.0-36.0); MONO % 6.6 % (0.0-8.0); PLATELET COUNT 165 TH/MM3 (150-450); RED BLOOD COUNT 3.77 MIL/MM3 (4.50-5.90); WHITE BLOOD COUNT 12.8 TH/MM3 (4.0-11.0)
[2016-11-25 06:17] LABS: INTERNATIONAL NORMALIZED RATIO 1.3 RATIO; PROTHROMBIN TIME - PATIENT 14.8 SEC (9.8-11.6)
[2016-11-25 06:36] LABS: ALT (GPT) 110 U/L (12-78); ANION GAP 4 MEQ/L (5-15); AST (GOT) 77 U/L (15-37); BICARBONATE 37.1 MEQ/L (21.0-32.0); BLOOD UREA NITROGEN 12 MG/DL (7-18); CHLORIDE 98 MEQ/L (98-107); GLOMERULAR FILTRATION RATE 195 ML/MIN (>89); MAGNESIUM 1.9 MG/DL (1.5-2.5); POTASSIUM 3.8 MEQ/L (3.5-5.1); SODIUM (NA) 139 MEQ/L (136-145)
[2016-11-25 06:38] LABS: ALKALINE PHOSPHATASE 184 U/L (45-117); TOTAL BILIRUBIN ADULT 0.5 MG/DL (0.2-1.0)
[2016-11-25] MEDS: RESP: ALBUTEROL 2.5 MG/IPRATROPIUM 0.5 MG NEB (SCH) INH (07:18)
[2016-11-25 07:39] LABS: HEMO FLAGS AUTO DIFF
[2016-11-25 07:40] LABS: ACANTHOCYTES OCC (NORMAL); OVALOCYTES 1+ (NORMAL); PLATELET ESTIMATE SMEAR NORMAL (NORMAL); PLATELET MORPHOLOGY CLUMPED (NORMAL); SCAN/DIFF AUTO DIFF CONFIRMED
[2016-11-25] MEDS: CHLORHEXIDINE 0.12% (ORAL KIT) 15 ML CUP MT SCH ×3 (08:00→21:27)
[2016-11-25] MEDS: ATENOLOL 50 MG TAB PO SCH ×2 (08:48→21:28)
[2016-11-25] MEDS: FUROSEMIDE 20 MG TAB PO SCH ×2 (08:48→18:10)
[2016-11-25] MEDS: levETIRAcetam 500 MG TAB PO SCH ×2 (08:48→21:00)
[2016-11-25] MEDS: predniSONE 10 MG TAB PO SCH ×2 (08:48→21:28)
[2016-11-25] MEDS: SODIUM CHLORIDE 0.9% FLUSH 5 ML FLUSH FLUSH SCH ×2 (08:49→21:28)
[2016-11-25] MEDS: SODIUM CHLORIDE 0.9% FLUSH 5 ML FLUSH IVF SCH (08:49)
--- NOTE | 2016-11-25 12:36 | HHI.PR ---
Subjective Remarks Has a Chest tube on the left.and a New catheter at left upper chest. CXR is worse with Right atelectasis. On O2 2l. Feels OK. Taking his diet. Objective Vital Signs Date Time Temp Pulse Resp B/P Pulse Ox O2 Delivery O2 Flow Rate FiO2 11/25/16 08:00 97.6 78 30 140/64 97 11/25/16 07:18 96 Nasal Cannula 4.00 11/25/16 06:00 82 11/25/16 04:00 79 11/25/16 04:00 97.7 79 26 161/71 96 11/25/16 02:00 76 11/25/16 00:00 97.7 75 29 159/70 95 11/25/16 00:00 75 11/24/16 23:44 95 Nasal Cannula 3.00 11/24/16 22:00 79 11/24/16 20:00 86 11/24/16 20:00 98.1 86 33 143/65 95 11/24/16 18:00 84 11/24/16 16:00 83 11/24/16 16:00 89.1 83 29 136/84 92 11/24/16 14:00 76 I/O 11/24/16 11/24/16 11/24/16 11/25/16 11/25/16 11/25/16 07:00 15:00 23:00 07:00 15:00 23:00 Intake Total 0 ml 444 ml 120 ml 0 ml Output Total 270 ml 459 ml 315 ml 285 ml Balance -270 ml -15 ml -195 ml -285 ml Intake Oral 0 ml 444 ml 120 ml 0 ml IV Total 0 ml 0 ml 0 ml Output Urine Total 200 ml 275 ml 275 ml 225 ml Chest Tube Drainage Total 70 ml 184 ml 40 ml 60 ml # Bowel Movements 0 1 0 0 Result Diagram: 11/25/16 0435 11/25/16 0435 Objective Remarks GENERAL: Elderly male awake and anxious . On o2 HEENT: Pupils are equal and react to light. Oral mucosa, nasal mucosa normal. NECK: Supple. JVP not raised. CHEST: mild wheeze. Decreased breath sounds at bases. Chest tubes X2 on left. CARDIOVASCULAR: S1, S2 normal. ABDOMEN: Benign.No mass. EXTREMITIES: 2 + edema. Neuro, Weak Legs Poor pulses.Alert and talking Assessment and Plan Assessment and Plan IMPRESSION 1. Ventilator dependent respiratory failure.Resolved 2. Pleural effusions status post chest tube placement. 3. Congestive heart failure. 4. Atrial fibrillation. 5. Pulmonary HTN Plan : 1. O2 at 4 L. N/C 2. Nebs qid , duoneb. 3. Continue diuretics. 4. Chest tube to drainage 5. CXR ,BMP in am. 6. CPT to right chest and mucomyst. 7. IS at bedside qid 8. Prednisone 10 mg bid 9. Will do Bronchoscopy on friday if CXR not better. Paulo Rooney MD Nov 25, 2016 12:36
--- NOTE | 2016-11-25 15:35 | HHI.PR ---
Subjective Remarks f/u for respiratory failure. patient stated breathing improved and denied any SOB. denied any cough. remains afebrile. he has no other concerns. Objective Vitals Vital Signs Date Time Temp Pulse Resp B/P Pulse Ox O2 Delivery O2 Flow Rate FiO2 11/25/16 08:00 97.6 78 30 140/64 97 11/25/16 07:18 96 Nasal Cannula 4.00 11/25/16 06:00 82 11/25/16 04:00 79 11/25/16 04:00 97.7 79 26 161/71 96 11/25/16 02:00 76 11/25/16 00:00 97.7 75 29 159/70 95 11/25/16 00:00 75 11/24/16 23:44 95 Nasal Cannula 3.00 11/24/16 22:00 79 11/24/16 20:00 86 11/24/16 20:00 98.1 86 33 143/65 95 11/24/16 18:00 84 11/24/16 16:00 83 11/24/16 16:00 89.1 83 29 136/84 92 I/O 11/24/16 11/24/16 11/24/16 11/25/16 11/25/16 11/25/16 07:00 15:00 23:00 07:00 15:00 23:00 Intake Total 0 ml 444 ml 120 ml 0 ml Output Total 270 ml 459 ml 315 ml 285 ml Balance -270 ml -15 ml -195 ml -285 ml Intake Oral 0 ml 444 ml 120 ml 0 ml IV Total 0 ml 0 ml 0 ml Output Urine Total 200 ml 275 ml 275 ml 225 ml Chest Tube Drainage Total 70 ml 184 ml 40 ml 60 ml # Bowel Movements 0 1 0 0 Result Diagram: 11/25/16 0435 11/25/16 0435 Objective Remarks GENERAL: chronically ill appearing in NAD HEENT: Normocephalic. Atraumatic. Pupils equal, round, reactive. NECK: Trachea is midline. No JVD. On [place] oxygen CHEST: CT X 2 on left side. diminished BS at bases. CARDIOVASCULAR: Normal rate, regular rhythm. No appreciable murmurs. ABDOMEN: After, nontender, nondistended. No guarding. MUSCULOSKELETAL: 1+ peripheral edema. Distal pulses 2+ NEUROLOGICAL: AAO X 1 (can tell me his name). he can answer some questions but could not tell me location or date. Medications and IVs Current Medications IV Flush 2 ml 2 ml UNSCH PRN IVF FLUSH AFTER USING IV ACCESS; Start 11/07/16 at 20:00; Stop 11/07/16 at 22:06; Status DC Sodium Chloride 1,000 ml @ 1,000 mls/hr Q1H IV Last administered on 11/07/16 20:19; Start 11/07/16 at 19:56; Stop 11/07/16 at 20:55; Status DC Cefepime HCl 2000 mg/Sodium Chloride 100 ml @ 200 mls/hr ONCE ONCE IV Last administered on 11/07/16 21:34; Start 11/07/16 at 20:00; Stop 11/07/16 at 20:29 ; Status DC Azithromycin/ Sodium Chloride (Zithromax Inj/ NS 250 ml Inj) 250 ml @ 250 mls/ hr ONCE ONCE IV Last administered on 11/07/16 20:19; Start 11/07/16 at 20:00 ; Stop 11/07/16 at 20:59; Status DC Iohexol (Omnipaque 350 Inj) 70 ml STK-MED ONCE IV Last administered on 20:52; Start 11/07/16 at 20:52; Stop 11/07/16 at 20:53; Status DC IV Flush (NS Flush) 2 ml UNSCH PRN FLUSH FLUSH AFTER USING IV ACCESS Last administered on 11/10/16 09:32; Start 11/07/16 at 22:00 IV Flush (NS Flush) 2 ml BID FLUSH Last administered on 11/25/16 08:49; Start 11/08/16 at 09:00 Naloxone HCl (Narcan Inj) 0.4 mg UNSCH PRN IV SEE LABEL COMMENTS; Start at 22:00 Furosemide (Lasix Inj) 40 mg ONCE ONCE IV PUSH Last administered on 11/08/16 01:30; Start 11/08/16 at 01:30; Stop 11/08/16 at 01:31; Status DC Alprazolam (Xanax) 0.25 mg Q6H PRN PO anxiety; Start 11/08/16 at 01:30; Stop at 03:49; Status DC Atenolol (Tenormin) 50 mg BID PO Last administered on 11/25/16 08:48; Start at 09:00 Captopril (Capoten) 50 mg TIDAC PO Last administered on 11/24/16 09:25; Start 11/08/16 at 08:00; Status Hold Furosemide (Lasix) 20 mg DAILY PO ; Start 11/08/16 at 09:00; Stop 11/08/16 at 09 :00; Status DC Warfarin Sodium (Coumadin) 5 mg DAILY@16 PO Last administered on 11/12/16 17: 09; Start 11/08/16 at 16:00; Stop 11/13/16 at 08:35; Status DC Patient Medication Teaching (Coumadin Booklet) 1 ONCE ONCE XX Last administered on 11/08/16 16:00; Start 11/08/16 at 16:00; Stop 11/08/16 at 16:01 ; Status DC Acetaminophen (Tylenol) 650 mg Q4H PRN PO pain, headaches; Start 11/08/16 at 01 :30; Stop 11/21/16 at 14:01; Status DC Furosemide (Lasix Inj) 20 mg BID@09,18 IV PUSH Last administered on 11/10/16 09:32; Start 11/08/16 at 09:00; Stop 11/14/16 at 10:00; Status DC Methylprednisolone Sodium Succinate (SoluMEDROL INJ) 60 mg Q12HR IV PUSH Last administered on 11/12/16 08:19; Start 11/08/16 at 09:00; Stop 11/12/16 at 13:49 ; Status DC Albuterol/ Ipratropium (Duoneb Neb) 1 ampule Q2HR NEB PRN INH WHEEZING; Start 11/08/16 at 03:45 Albuterol/ Ipratropium 1 ampule 1 ampule Q4HR NEB INH Last administered on 07:37; Start 11/08/16 at 04:00; Stop 11/18/16 at 07:48; Status DC Vancomycin HCl 1250 mg/Sodium Chloride 512.5 ml @ 250 mls/hr ONCE ONCE IV ; Start 11/08/16 at 03:45; Stop 11/08/16 at 04:13; Status DC Pharmacy Profile Note 0 ml @ 0 mls/hr UNSCH OTHER ; Start 11/08/16 at 03:45; Stop 11/15/16 at 15:39; Status DC Cefepime HCl 1000 mg/Sodium Chloride 100 ml @ 200 mls/hr Q8H IV Last administered on 11/13/16 04:59; Start 11/08/16 at 06:00; Stop 11/13/16 at 15:07 ; Status DC Azithromycin/ Sodium Chloride (Zithromax Inj/ NS 250 ml Inj) 250 ml @ 250 mls/ hr Q24H IV Last administered on 11/12/16 19:10; Start 11/08/16 at 20:00; Stop 11/13/16 at 15:07; Status DC Acetazolamide Sodium (Diamox Inj) 500 mg Q8H IV PUSH Last administered on 19:59; Start 11/08/16 at 04:00; Stop 11/08/16 at 20:01; Status DC Miscellaneous Information Patient in critical care unit? Ass... [id number] Last administered on 11/08/16 04:00; Start 11/08/16 at 04:00 Chlorhexidine Gluconate (Chlorhexidine 2% Cloth) 3 pack DAILY@04 TOP Last administered on 11/11/16 22:25; Start 11/08/16 at 04:00; Stop 11/12/16 at 04:01 ; Status DC Chlorhexidine Gluconate 3 pack 3 pack UNSCH PRN TOP HYGIENIC CARE; Start at 04:00; Stop 11/13/16 at 03:59; Status DC Vancomycin HCl/ Sodium Chloride (Vancomycin Inj/ NS 250 ml Inj) 262.5 ml @ 250 mls/hr ONCE ONCE IV Last administered on 11/08/16 04:52; Start 11/08/16 at 04 :13; Stop 11/08/16 at 04:47; Status DC Midazolam HCl (Versed Inj) 5 mg STK-MED ONCE .ROUTE ; Start 11/08/16 at 05:17; Stop 11/08/16 at 05:18; Status DC Chlorhexidine Gluconate (Peridex 0.12% Liq) 15 ml BID@08,20 MT Last administered on 11/19/16 12:38; Start 11/08/16 at 08:00 Dextrose (D50w (Vial) Inj) 25 ml UNSCH PRN IV PUSH HYPOGLYCEMIA-SEE COMMENTS; Start 11/08/16 at 05:45 Insulin Human Regular 1 1 Q6HR SQ Last administered on 11/19/16 12:38; Start 11/08/16 at 06:00 Fentanyl Citrate (fentaNYL DRIP) 250 ml @ 0 mls/hr TITRATE IV Last administered on 11/14/16 06:00; Start 11/08/16 at 05:45; Stop 11/14/16 at 10:00 ; Status DC Midazolam HCl (Versed Inj) 5 mg STAT ONCE IV PUSH Last administered on 06:04; Start 11/08/16 at 05:45; Stop 11/08/16 at 05:46; Status DC Rocuronium [place] (Zemuron Inj) 50 mg BOLUS ONCE IV Last administered on 11/08 05:45; Start 11/08/16 at 05:45; Stop 11/08/16 at 05:46; Status DC IV Flush (NS Flush) DAILY IVF Last administered on 11/25/16 08:49; Start 11/09 at 09:00 IV Flush (NS Flush) UNSCH PRN IVF SEE PROTOCOL Last administered on 11/11/16 08:00; Start 11/08/16 at 09:45 Lidocaine/ Epinephrine 20 ml 20 ml STK-MED ONCE .ROUTE ; Start 11/08/16 at 09:58 ; Stop 11/08/16 at 09:59; Status DC Potassium Chloride 100 ml @ 50 mls/hr Q2H PRN IV For Potassium 2.8 - 3.2 mEq/ L Last administered on 11/10/16 03:19; Start 11/08/16 at 11:15 Potassium Chloride 100 ml @ 50 mls/hr Q2H PRN IV For Potassium 2.8 - 3.2 mEq/L ; Start 11/08/16 at 11:15 Potassium Chloride 100 ml @ 25 mls/hr UNSCH PRN IV For Potassium 3.3 - 3.5 mEq /L; Start 11/08/16 at 11:15 Potassium Chloride 100 ml @ 50 mls/hr Q2H PRN IV For Potassium 3.3 - 3.5 mEq/L ; Start 11/08/16 at 11:15 Magnesium Sulfate/ Sodium Chloride (Magnesium Sulfate Inj/NS Inj) 100 ml @ 50 mls/hr UNSCH PRN IV For Magnesium 0.9 - 1.1 mg/dL; Start 11/08/16 at 11:15 Magnesium Oxide 800 mg 800 mg UNSCH PRN PO For Magnesium 1.2 - 1.6 mg/dL; Start 11/08/16 at 11:15 Magnesium Sulfate/ Sodium Chloride (Magnesium Sulfate Inj/NS Inj) 100 ml @ 50 mls/hr UNSCH PRN IV For Magnesium 1.2 - 1.6 mg/dL; Start 11/08/16 at 11:15 Potassium Phosphate 2000 mg 2,000 mg Q4H PRN PO For Phosphorus < 2.5 mg/dL; Start 11/08/16 at 11:15 Sodium Phosphate/ Sodium Chloride (Sodium Phosphate Inj/NS 250 ml Inj) 250 ml @ 42 mls/hr UNSCH PRN IV For Phosphorus < 2.5 mg/dL; Start 11/08/16 at 11:15 Potassium Phosphate 2000 mg 2,000 mg UNSCH PRN PO/TUBE SEE LABEL COMMENTS; Start 11/08/16 at 11:15 Potassium Phosphate 30 mmol/ Sodium Chloride 260 ml @ 42 mls/hr UNSCH PRN IV SEE LABEL COMMENTS; Start 11/08/16 at 11:15 Vancomycin HCl/ Sodium Chloride (Vancomycin Inj/ NS 250 ml Inj) 262.5 ml @ 262.5 mls/ hr Q18H IV Last administered on 11/14/16 23:25; Start 11/08/16 at 23:00; Stop 11/15/16 at 15:40; Status DC Miscellaneous Information SPECIFIC LAB TO BE AMY... ONCE ONCE XX Last administered on 11/10/16 10:45; Start 11/10/16 at 10:45; Stop 11/10/16 at 10:46 ; Status DC Norepinephrine Bitartrate (Levophed-Dextrose Drip) 250 ml @ 0 mls/hr TITRATE IV Last administered on 11/11/16 07:26; Start 11/08/16 at 23:45; Stop 11/14/16 at 10:01; Status DC Lorazepam (Ativan Inj) 1 mg ONCE ONCE IV Last administered on 11/09/16 01:16 ; Start 11/09/16 at 01:15; Stop 11/09/16 at 01:16; Status DC Lorazepam (Ativan Inj) 1 mg Q3H PRN IV PUSH BREAKTHROUGH SEIZURES Last administered on 11/24/16 22:09; Start 11/09/16 at 05:00 Albumin Human 25 gm 25 gm ONCE ONCE IV Last administered on 11/10/16 11:16; Start 11/10/16 at 10:30; Stop 11/10/16 at 10:40; Status DC Midazolam HCl 100 ml @ 0 mls/hr TITRATE IV Last administered on 11/10/16 11:16 ; Start 11/10/16 at 10:30; Stop 11/11/16 at 08:16; Status DC Pharmacy Profile Note (Coumadin Consult Pharmacy) 0 ml @ 0 mls/hr UNSCH OTHER ; Start 11/11/16 at 07:45 Gadodiamide 13 ml 13 ml STK-MED ONCE IV Last administered on 11/11/16 13:45; Start 11/11/16 at 13:45; Stop 11/11/16 at 13:46; Status DC Midazolam HCl 100 ml @ 0 mls/hr TITRATE IV Last administered on 11/14/16 04:04 ; Start 11/11/16 at 15:30; Stop 11/14/16 at 10:01; Status DC Phenytoin Sodium 1000 mg/Sodium Chloride 1,020 ml @ 3,060 mls/hr Q20M ONCE IV ; Start 11/11/16 at 16:00; Stop 11/11/16 at 16:19; Status Cancel Phenytoin Sodium/ Sodium Chloride (Dilantin Inj/NS Inj) 120 ml @ 360 mls/hr NOW ONCE IV Last administered on 11/11/16 16:05; Start 11/11/16 at 15:45; Stop 11/11/16 at 16:04; Status DC Phenytoin Sodium (Dilantin Inj) 100 mg Q8H IV PUSH Last administered on 08:10; Start 11/11/16 at 17:00; Stop 11/21/16 at 14:01; Status DC Methylprednisolone Sodium Succinate (SoluMEDROL INJ) 40 mg Q12HR IV PUSH Last administered on 11/20/16 08:31; Start 11/12/16 at 21:00; Stop 11/20/16 at 11:59 ; Status DC Warfarin Sodium 3 mg 3 mg DAILY@16 PO Last administered on 11/14/16 17:39; Start 11/13/16 at 16:00; Stop 11/15/16 at 09:13; Status DC Cefepime HCl 2000 mg/Sodium Chloride 100 ml @ 200 mls/hr Q8H IV Last administered on 11/15/16 13:06; Start 11/13/16 at 22:00; Stop 11/15/16 at 15:40 ; Status DC Levofloxacin/ Dextrose (Levaquin 750 Mg Premix Inj) 150 ml @ 100 mls/hr Q24H IV Last administered on 11/13/16 17:29; Start 11/13/16 at 16:00; Stop at 10:02; Status DC Bumetanide 2 mg 2 mg ONCE ONCE IV PUSH Last administered on 11/14/16 12:07; Start 11/14/16 at 10:00; Stop 11/14/16 at 10:08; Status DC Dexmedetomidine HCl (Precedex Inj) 50 ml @ 0 mls/hr TITRATE IV Last administered on 11/19/16 01:52; Start 11/14/16 at 11:15; Stop 11/19/16 at 03:16 ; Status DC Bumetanide 1 mg 1 mg ONCE ONCE IV PUSH Last administered on 11/15/16 07:49; Start 11/15/16 at 07:30; Stop 11/15/16 at 07:31; Status DC Potassium Chloride (KCl 40 Meq Premix Inj) 100 ml @ 25 mls/hr BOLUS ONCE IV Last administered on 11/15/16 07:48; Start 11/15/16 at 07:30; Stop 11/15/16 at 11:29; Status DC Warfarin Sodium 4 mg 4 mg DAILY@16 PO Last administered on 11/15/16 16:47; Start 11/15/16 at 16:00; Stop 11/16/16 at 10:06; Status DC Ceftriaxone Sodium/Sodium Chloride (Rocephin Inj/NS Inj) 100 ml @ 200 mls/hr Q24H IV Last administered on 11/18/16 17:35; Start 11/15/16 at 18:00; Stop at 23:55; Status DC Sodium Polystyrene Sulfonate (Kayexalate Liq) 15 gm ONCE ONCE PO Last administered on 11/16/16 05:37; Start 11/16/16 at 05:15; Stop 11/16/16 at 05:16 ; Status DC Warfarin Sodium (Coumadin) 5 mg DAILY@1600 PO Last administered on 11/16/16 15 :09; Start 11/16/16 at 16:00; Stop 11/18/16 at 06:24; Status DC Bumetanide (Bumex Inj) 2 mg ONCE ONCE IV PUSH Last administered on 11/17/16 09:00; Start 11/17/16 at 09:00; Stop 11/17/16 at 09:01; Status DC Bumetanide (Bumex Inj) 1 mg BID@,18 IV PUSH Last administered on 11/18/16 08 :40; Start 11/17/16 at 18:00; Stop 11/18/16 at 17:21; Status DC Potassium Chloride (KCl Powder) 20 meq Q12HR NG Last administered on 11/21/16 21:00; Start 11/17/16 at 09:00; Stop 11/22/16 at 07:14; Status DC Morphine Sulfate (Morphine Inj) 8 mg STK-MED ONCE .ROUTE ; Start 11/17/16 at 10: 50; Stop 11/17/16 at 10:51; Status DC Rocuronium [place] (Zemuron Inj) 50 mg STK-MED ONCE .ROUTE ; Start 11/17/16 at 11:13; Stop 11/17/16 at 11:14; Status DC Warfarin Sodium (Coumadin) 5 mg DAILY@1600 PO ; Start 11/19/16 at 16:00; Stop at 16:00; Status DC Albuterol/ Ipratropium (Duoneb Neb) 1 ampule Q8HR NEB INH Last administered on 11/25/16 07:18; Start 11/18/16 at 08:00; Stop 11/25/16 at 09:42; Status DC Warfarin Sodium (Coumadin) 6 mg DAILY@16 PO Last administered on 11/24/16 17:44 ; Start 11/18/16 at 16:00 Morphine Sulfate (Morphine Inj) 2 mg NOW ONCE IV PUSH ; Start 11/18/16 at 10:00 ; Stop 11/18/16 at 10:01; Status DC Hydralazine HCl (Apresoline Inj) 20 mg Q4H PRN IV PUSH SYS BP GREATER THAN 160 MMHG Last administered on 11/20/16 22:19; Start 11/18/16 at 12:45 Labetalol HCl 10 mg 10 mg Q4H PRN IV PUSH SYS BP GREATER THAN 160 MMHG; Start 11/18/16 at 12:45 Dexmedetomidine HCl 1000 mcg/ Sodium Chloride 250 ml @ 0 mls/hr TITRATE IV Last administered on 11/23/16 02:11; Start 11/19/16 at 03:30; Stop 11/23/16 at 07 :14; Status DC Dextrose (D5W 1000 ml Inj) 1,000 ml @ 100 mls/hr Q10H IV Last administered on 11/20/16 02:54; Start 11/19/16 at 06:45; Stop 11/20/16 at 06:44; Status DC Bumetanide (Bumex Inj) 1 mg BID@,18 IV PUSH Last administered on 11/20/16 18 :57; Start 11/19/16 at 09:00; Stop 11/21/16 at 08:59; Status DC Haloperidol Lactate (Haldol Inj) 3 mg Q4H PRN IV agitation Last administered on 11/23/16 23:28; Start 11/19/16 at 08:30 Prednisone (Deltasone) 10 mg BID PO Last administered on 11/25/16 08:48; Start 11/20/16 at 21:00 Midazolam HCl (Versed Inj) 5 mg STK-MED ONCE .ROUTE Last administered on 13:31; Start 11/21/16 at 13:31; Stop 11/21/16 at 13:32; Status DC Fentanyl Citrate (fentaNYL INJ) 100 mcg STK-MED ONCE .ROUTE Last administered on 11/21/16 13:31; Start 11/21/16 at 13:31; Stop 11/21/16 at 13:32; Status DC Levetriacetam (Keppra) 500 mg Q12HR PO Last administered on 11/25/16 08:48; Start 11/21/16 at 21:00 Furosemide (Lasix) 20 mg BID@09,18 PO Last administered on 11/25/16 08:48; Start 3/30/17 at 18:00 Warfarin Sodium (Coumadin) 2.5 mg ONCE@16 ONCE PO Last administered on t 16:31; Start 11/23/16 at 16:00; Stop 11/23/16 at 16:01; Status DC Warfarin Sodium (Coumadin) 2 mg ONCE PO ; Start 11/25/16 at 16:00; Stop 11/25/16 at 21:00 Date of Insertion: Nov 08, 2016 Side: Right Location: Internal, Jugular A/P Problem List: (1) Acute respiratory failure with hypoxia and hypercapnia ICD Code: J96.01 Status: Acute (2) Pleural effusion, right ICD Code: J90 Status: Acute (3) Dyspnea ICD Code: R06.00 Status: Acute (4) Pulmonary artery hypertension ICD Code: I27.2 Status: Acute Assessment and Plan This is an 81-year-old male with history of prior recurrent right pleural effusions and COPD now presents with acute hypercarbic and hypoxic respiratory failure Myoclonus-resolved Agitated delirium CO2 narcosis Metabolic encephalopathy Mild dementia -Off Precedex drip and monitor neuro status. Use Ativan PRN for breakthrough seizures /myoclonus -EEG negative 11/10/15, 11/11/16 (moderate to severe encephalopathy, no seizure) -11/08 CT of the brain-no acute abnormality. 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 Question of amyloid -On Keppra 500 mg by mouth twice a day Acute hypercarbic and hypoxic respiratory failure-extubated 11/18/16 Recurrent right pleural effusion s/p chest tube placement-dislodged 11/17 New moderate left pneumothorax Right pneumothorax-resolved Large hemorrhagic left pleural effusion status post thoracentesis 11/17/16, pigtail chest tube 11/19/16 Healthcare associated pneumonia COPD exacerbation Continue prednisone, DuoNeb every 8 and every 2 when necessary -s/p anterior left anterior pigtail chest tube Extubated 11/18/16 --Status post left thoracentesis 11/17/16 with 1.2 L of hemorrhagic fluid removed. CXR/US shows reaccumulation of left pleural fluid. pigtail chest tube placed 11/19/1611/08 S/P CT guided IR drainage of recurrent right posterior pleural effusion, unable to perform pleurodesis, accidentally dislodged --s/p R pig tail chest tube for large L pl effusion 11/19/16 CXR 11/23 showed no evidence of PTX, consolidative changes on right, monitor CT drainage ( Left lateral CT drained 420 ml overnight) -per Dr. Rooney if CXR worsens then recommends bronchoscopy. Severe pulmonary hypertension (PASP 85 on Echo 10/08/16, repeat echo 11/19/16 PASP was 47) A. fib RVR Hypertension Moderate to severe TR Continue with BP meds- (captopril and atenolol 11/14/16) --Monitor HR and BP keep MAP>65mmHg --Repeat 2d echo 11/19/16 reviewed. Hypernatremia- resolved Monitor renal function, I/O's, electrolytes replacement per protocol. -On Lasix 20mg BID Acute intravascular volume overload Acute protein calorie malnutritionsevere Elevated LFT's Heart healthy and vegan diet. -Monitor LFT's.trending down Healthcare associated pneumonia, staph aureus in sputum Leukocytosis- Resolved -Off abx , ID is following. Monitor for signs of infections ( Fever, WBC) 11/08 blood -micrococcus 08/28 possible contaminant - Urine cultures-NGTD --Sputum cx 11/12/16 with staph aureus GI Prophylaxis Protonix 40 mg IV every 24 hours DVT Prophylaxis --SCDs On Coumadin monitor INR/PT- INR 1.3 11/23 Discharge Planning poor prognosis. daughter wants aggressive treatment. palliative care ff. Problem Qualifiers (1) Dyspnea: Qualified Code: R06.02 - Shortness of breath Lesvia Pollack MD Nov 25, 2016 15:35
[2016-11-25] MEDS ORDERED: WARFARIN SOD 2 MG TAB PO SCH (16:00)
[2016-11-25] MEDS ORDERED: ETOMIDATE 20 MG/10 ML VIAL ONE (16:18)
[2016-11-25] MEDS ORDERED: PROPOFOL 500 MG/50 ML INJ 50 ML ONE (16:19)
[2016-11-25] MEDS: WARFARIN SOD 6 MG TAB PO SCH (16:39)
--- NOTE | 2016-11-25 16:45 | HHI.CCPN ---
Subjective Remarks/Hospital Course This is an 81-year-old male who has had multiple readmissions over the past few months for a recurrent right-sided pleural effusion. He represents from his group home facility with recurrent right-sided pleural effusion as well as hypoxia and somnolence. He was found to have significant hypercarbia and a PCO2 in the 90s. He was initially placed on BiPAP and admitted to the [facility]. He became more somnolent and his oxygen saturation began to decline. At this point a critical care medicine is consulted to evaluate and manage his hypercarbic respiratory failure. Because he is failed his trial of noninvasive positive pressure ventilation, we will move towards intubating the patient. I evaluated the patient and he is essentially unresponsive and obtunded and only minimally withdrawing to pain. I can obtain no additional history from the patient. Subjective: 11/09: Early this a.m. at approximately 06:30 the patient was noted to have a grand mal seizure lasting approximately 60 seconds followed by a small tonic- clonic seizure lasting 30 seconds involving the lower extremities. The patient received Ativan 2 mg with cessation of seizure activity. Stat CT of the brain without contrast was obtained showed no acute abnormality. EEG was obtained previously awaiting results. Prior to the event the patient was noted to be on a fentanyl infusion at approximately 250 mcg/h. The patient was noted to be a GCS 10T, squeezing my hand. 11/10: The patient was noted to have multiple seizures requiring interventions with IV Ativan. Described as tonic-clonic in nature with eyes rolled back in the head. Gross motor movement shaking 4 extremities. Today the patient was noted to have a positive growth and blood cultures. WBC count elevated. Ammonia level was drawn less than 10, lactate was noted to be 2.2 this morning. Pleural fluid culture negative growth to date. 11/11: On stimulation patient continues to have jerking movement of all extremities. EEG negative for seizures. Check MRI today. Dr. Kirkland is neurology. Remains on 2 mcg/min of Levophed 11/12: Per neurologist, patient had witnessed with tonic convulsions started over right arm and propagated to left UE and both LE with fluttering of the eyes and upward gaze.Loaded with Dilantin iv infusion and a maintenance dose of 100mg Q8h, Stat EEG negative for seizures. Its unclear to me whether it is seizure or myoclonus 11/13: No change in neuro status. Continues to have jerking movements off lower extremity when stimulated. EEG 2 have been negative for seizures. We'll hold sedation for neuro exam 11/14: On sedation hold opens eyes. Appears to follow commands and upper extremity. Still has some tremulousness of the extremities. Remains off pressors 11/15: Remains on Precedex intermittently following commands for RN. Placed on CPAP tolerating well. No evidence of myoclonus now 11/16: On 1.1 mcg/kg/hr of Precedex. No spontaneous eye opening but moves all extremities spontaneously. Not following commands will reduce Precedex, and start weaning trials 11/17: Mental status significantly improved patient following commands on Precedex. However chest tube was dislodged yesterday evening, now has bilateral pleural effusions left is more than right, appears large. Vent day 10 11/18: Off Precedex following commands upper extremities. But continues to fail C Pap trials due to tachypnea and low tidal volumes. Status post large-volume left thoracentesis yesterday with 1.2 L of old blood-tinged fluid removed. 11/19: Overnight agitated, requiring maximum dose Precedex 1.4 mcg per kg per hr and restraints. Currently heavily sedated. Chest x-ray shows increasing left effusion confirmed by ultrasound. We'll proceed with left pigtail catheter after consent. Continue to hold Coumadin due to hemorrhagic effusion 11/20: Left pigtail chest tube placed yesterday with a 30 mL output. Mentation improving now oriented follows commands. Requiring oxygen by nasal cannula. Slight increase in right effusion seen on chest x-ray 11/21: CT chest shows moderate left-sided pneumothorax. Eating continues to be slightly tachypneic but patient appears comfortable. Agitated requiring 4 point restraints. Also a liver enzymes are increasing most likely secondary to Dilantin. I will DC Dilantin and start him on Keppra 11/22 No acute events overnight. On Precedex drip. Afebrile. CXR this morning showed no evidence of PTX. 11/23 Patient is on Precedex 0.7 awake and alert on 2L oxygen with good sats. 11/24 Patient is off Precedex drip. Afebrile. Awake and alert. 11/25 Called by nurse as patient was diaphoretic, tachypneic, tachycardic, hypertensive minimally responsive and had O2 saturation in 80's he was subsequently intubated and placed on mechanical ventilation. CXR from earlier showed volume loss, consolidation RUL. Objective Vital Signs Date Time Temp Pulse Resp B/P Pulse Ox O2 Delivery O2 Flow Rate FiO2 11/25/16 12:00 97.9 101 40 213/97 92 11/25/16 07:18 Nasal Cannula 4.00 Intake and Output 11/24/16 11/24/16 11/25/16 08:00 16:00 00:00 Intake Total 0 ml 444 ml 120 ml Output Total 270 ml 459 ml 315 ml Balance -270 ml -15 ml -195 ml Result Diagram: 11/25/16 0435 11/25/16 0435 Other Results Laboratory Tests Test 11/25/16 04:35 White Blood Count 12.8 TH/MM3 Red Blood Count 3.77 MIL/MM3 Hemoglobin 12.5 GM/DL Hematocrit 37.0 % Mean Corpuscular Volume 98.1 FL Mean Corpuscular Hemoglobin 33.0 PG Mean Corpuscular Hemoglobin 33.7 % Concent Red Cell Distribution Width 15.0 % Platelet Count 165 TH/MM3 Mean Platelet Volume 9.5 FL Neutrophils (%) (Auto) 81.0 % Lymphocytes (%) (Auto) 10.8 % Monocytes (%) (Auto) 6.6 % Eosinophils (%) (Auto) 0.6 % Basophils (%) (Auto) 1.0 % Neutrophils # (Auto) 10.4 TH/MM3 Lymphocytes # (Auto) 1.4 TH/MM3 Monocytes # (Auto) 0.8 TH/MM3 Eosinophils # (Auto) 0.1 TH/MM3 Basophils # (Auto) 0.1 TH/MM3 CBC Comment AUTO DIFF Differential Comment AUTO DIFF CONFIRMED Platelet Estimate NORMAL Platelet Morphology Comment CLUMPED Ovalocytes 1+ Acanthocytes OCC Prothrombin Time 14.8 SEC Prothromb Time International 1.3 RATIO Ratio Sodium Level 139 MEQ/L Potassium Level 3.8 MEQ/L Chloride Level 98 MEQ/L Carbon Dioxide Level 37.1 MEQ/L Anion Gap 4 MEQ/L Blood Urea Nitrogen 12 MG/DL Creatinine 0.42 MG/DL Estimat Glomerular Filtration 195 ML/MIN Rate Random Glucose 94 MG/DL Calcium Level 8.6 MG/DL Phosphorus Level 2.9 MG/DL Magnesium Level 1.9 MG/DL Total Bilirubin 0.5 MG/DL Aspartate Amino Transf 77 U/L (AST/SGOT) Alanine Aminotransferase 110 U/L (ALT/SGPT) Alkaline Phosphatase 184 U/L Total Protein 5.8 GM/DL Albumin 2.4 GM/DL Imaging Last Impressions Chest X-Ray 11/25/16 0600 Signed Impressions: Service Date/Time: Friday, November 25, 2016 04:04 - CONCLUSION: Volume loss and consolidation involving the right lung suggesting collapse of the right lung. Cardiomegaly. Charbel Fuchs Jr., MD Chest CT 11/20/16 0000 Signed Impressions: Service Date/Time: October 09:37 - CONCLUSION: 1. Left pneumothorax without tension 2. Small loculated effusion medial right base 3. Pericardial effusion as above Jimi Chavez MD Liver Ultrasound 11/17/16 0000 Signed Impressions: Service Date/Time: Thursday, November 17, 2016 15:58 - CONCLUSION: 1. Increased liver echogenicity characteristic of mild fatty infiltration or hepatocellular disease. 2. Trace free fluid in the abdomen. Pleural effusions. Mild gallbladder wall thickening. Chaka Campos MD Brain MRI 11/11/16 0000 Signed Impressions: Service Date/Time: Friday, November 11, 2016 12:53 - CONCLUSION: 1. 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 2. 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 The others would be consistent with punctate, remote areas of hemorrhage suggesting possibility of amyloid. Eitan Mendoza MD Head CT 11/09/16 0000 Signed Impressions: Service Date/Time: Wednesday, November 09, 2016 10:29 - CONCLUSION: Stable CT scan of the brain. Pradeep Rodriguez MD Chest Tube Insertion 11/08/16 0000 Signed Impressions: Service Date/Time: Tuesday, November 08, 2016 12:46 - CONCLUSION: Uncomplicated right chest tube placement as above. 1500 cc of fluid removed and sent for culture. Post CT scan reveals a large. pleural rind . The right lung may well not reexpanded. A.m. chest x-ray is pending. Cultures pending. Kun Mendoza MD FACR CT Angiography 11/07/16 0000 Signed Impressions: Service Date/Time: October 20:40 - CONCLUSION: 1. No pulmonary embolus. 2. Marked cardiac enlargement, especially the atria. 3. Bilateral effusions and atelectasis about the same on the left and considerably worse on the right. Right pneumothorax seen previously has resolved. Dhruv Foster MD Objective Remarks GENERAL: This is a elderly 81 yo intubated HEENT: Normocephalic. Atraumatic. Pupils equal, round, reactive. NECK: Trachea is midline. No JVD. On [place] oxygen CHEST: Coarse BS, b/l equal air entry, CT x2 in place on left. CARDIOVASCULAR: Tachycardic, nl S1, S2, No appreciable murmurs. ABDOMEN: After, nontender, nondistended. No guarding. MUSCULOSKELETAL: 1+ peripheral edema. Distal pulses 2+ NEUROLOGICAL: Intubated and sedated Date of Insertion: Nov 08, 2016 Side: Right Location: Internal, Jugular A/P Assessment and Plan Assessment: This is an 81-year-old male with history of prior recurrent right pleural effusions and COPD now presents with acute hypercarbic and hypoxic respiratory failure which has failed noninvasive positive pressure ventilation. Intubated and placed on mechanical ventilation. Covering COPD exacerbation, as well as healthcare associated pneumonia given his history of being on Levaquin at his group home facility. He remains critically ill. Not sure that we will be able to get him through this hospitalization, and his recurrent respiratory failures are clearly making him more deconditioned every time he comes in the hospital. Despite this, daughter continues to request aggressive measures. Extubated 11/18/16 Plan by systems: Neurologic: Myoclonus-resolved Agitated delirium CO2 narcosis Metabolic encephalopathy Mild dementia -Place on Diprivan infusion for sedation. Use Ativan PRN for breakthrough seizures /myoclonus -EEG negative 11/10/15, 11/11/16 (moderate to severe encephalopathy, no seizure) -11/08 CT of the brain-no acute abnormality. 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 Question of amyloid -On Keppra 500 mg by mouth twice a day Respiratory: Acute hypercarbic and hypoxic respiratory failure-extubated - Reintubated 11/25 Recurrent right pleural effusion s/p chest tube placement-dislodged 11/17 New moderate left pneumothorax Right pneumothorax-resolved Large hemorrhagic left pleural effusion status post thoracentesis 11/17/16, pigtail chest tube 11/19/16 Healthcare associated pneumonia COPD exacerbation -Continue with vent support keep sat >92% -Bronchodilators, check CXR, ABG post intubation -Will proceed with bronch/BAL -CXR from earlier showed volume loss, consolidation of right lung Continue prednisone per Dr. Kitchen, DuoNeb every 8 and every 2 when necessary --Pulmonary Dr. Allen, -s/p anterior left anterior pigtail chest tube --Status post left thoracentesis 11/17/16 with 1.2 L of hemorrhagic fluid removed. CXR/US shows reaccumulation of left pleural fluid. pigtail chest tube placed 11/19/1611/08 S/P CT guided IR drainage of recurrent right posterior pleural effusion, unable to perform pleurodesis, accidentally dislodged --s/p R pig tail chest tube for large L pl effusion 11/19/[address] drainage ( Left lateral CT drained 420 ml overnight) Cardiovascular: Severe pulmonary hypertension (PASP 85 on Echo 10/08/16, repeat echo 11/19/16 PASP was 47) A. fib RVR Hypertension Moderate to severe TR Continue with BP meds- (captopril and atenolol 11/14/16) --Monitor HR and BP keep MAP>65mmHg --Repeat 2d echo 11/19/16 PASP was 47 compared to 85 on 10/18/16. Renal: Hypernatremia- resolved Monitor renal function, I/O's, electrolytes replacement per protocol. -On Lasix 20mg BID FEN/GI: Acute intravascular volume overload Acute protein calorie malnutritionsevere Elevated LFT's Heart healthy and vegan diet. -Monitor LFT's...trending down Heme/ID: Healthcare associated pneumonia, staph aureus in sputum Leukocytosis- Resolved -Off abx , ID is following. Monitor for signs of infections ( Fever, WBC) 11/08 blood -micrococcus 08/28 possible contaminant - Urine cultures-NGTD --Sputum cx 11/12/16 with staph aureus Endocrine: Hyperglycemia of critical illness -- SSI, medium scale, every 6 hours Prophylaxis: GI Prophylaxis Protonix 40 mg IV every 24 hours DVT Prophylaxis --SCDs On Coumadin monitor INR/PT- INR 1.3 4 Lines: Peripheral IVsx 2. central line Vital Palliative care is following CCT 30 mins Otoniel Dominguez MD Nov 25, 2016 16:45
[2016-11-25] MEDS: DEXT 5%-NACL 0.9% 1000 ML INJ 1,000 ML IV SCH (16:51)
[2016-11-25 17:46] LABS: BLOOD GAS CARBOXYHEMOGLOBIN 1.2 % (0-4); BLOOD GAS HCO3 36 mmol/L (22-26); BLOOD GAS METHEMOGLOBIN 0.9 % (0-2); BLOOD GAS O2 HGB SATURATION 97 % (90-100); BLOOD GAS OXYGEN CONTENT 16.4 Vol % (12.0-20.0); BLOOD GAS PCO2 72 mmHg (38-42); BLOOD GAS PO2 129 mmHg (61-120); BLOOD GAS TOTAL HGB 11.9 G/DL (12.0-16.0); CRITICAL VALUE YES; DRAW SITE LT RADIAL; FIO2 100 %; NUMBER OF ARTERIAL PUNCTURES 1; OXYGEN DEVICE VENTILATOR; STAT NO; TEMP CORR TO 98.6; ULNAR PULSE PRESENT; VENT SETTINGS PRVC/AC
--- NOTE | 2016-11-25 18:14 | RADRPT ---
EXAM DATE/TIME: 11/25/2016 17:14 [facility] COMPARISON: CHEST SINGLE AP, November 25, 2016, 4:04. INDICATIONS : Post intubation and bronchoscopy. MEDICAL HISTORY : Cardiovascular disease. Hypertension SURGICAL HISTORY : None. ENCOUNTER: Initial ACUITY: 1 day PAIN SCORE: Non-responsive. LOCATION: Bilateral chest FINDINGS: There is improvement in the aeration of the right lung. ET tube is present with tip overlapping appro ximately 1 cm above the laura. NG tube is present with tip in the stomach. Right pleural effusion is present with haziness of the perivascular structures in the right lung may represent pulmonary edema . Bibasilar consolidation may also be present. Chest tube is present on the left side. No definite pn eumothorax is seen for technique. CONCLUSION: Overall improvement in the aeration of the right lung. Lucia Izaguirre MD on November 25, 2016 at 18:12 Board Certified Radiologist. This report was verified electronically.
[2016-11-25] MEDS: PROPOFOL 1000 MG/100 ML INJ 100 ML IV SCH (18:45)
[2016-11-25] MEDS: RESP: ALBUTEROL 2.5 MG/IPRATROPIUM 0.5 MG NEB (SCH) NEB (20:44)
[2016-11-25] MEDS: RESP: ACETYLCYSTEINE 10% 30 ML NEB NEB SCH (20:45)
[2016-11-26] VITALS (21 sets, daily range): BP systolic 101–130; BP diastolic 56–62; PULSE 70–80; RESP 12–18; TEMP 98.1–99.7; O2SAT 90–100
[2016-11-26] MEDS: RESP: ALBUTEROL 2.5 MG/IPRATROPIUM 0.5 MG NEB (SCH) NEB ×4 (03:45→19:13)
[2016-11-26] MEDS: RESP: ACETYLCYSTEINE 10% 30 ML NEB NEB SCH ×3 (03:45→19:13)
[2016-11-26 04:51] LABS: HEMATOCRIT 33.2 % (39.0-51.0); MEAN CELL VOLUME 97.7 FL (80.0-100.0); MEAN CORPUSCULAR HEMOGLOBIN 33.4 PG (27.0-34.0); MEAN CORPUSCULAR HGB CONC 34.2 % (32.0-36.0); PLATELET COUNT 127 TH/MM3 (150-450); REVIEW FLAG FINAL; WHITE BLOOD COUNT 14.2 TH/MM3 (4.0-11.0)
[2016-11-26 04:54] LABS: INTERNATIONAL NORMALIZED RATIO 1.5 RATIO
[2016-11-26 04:57] LABS: BICARBONATE 35.6 MEQ/L (21.0-32.0)
[2016-11-26] MEDS: PROPOFOL 1000 MG/100 ML INJ 100 ML IV SCH ×3 (05:02→23:18)
[2016-11-26] MEDS: INSULIN NovoLIN REGULAR SUPPLEMENTAL SCALE SQ SCH ×4 (06:00→17:38)
[2016-11-26] MEDS: DEXT 5%-NACL 0.9% 1000 ML INJ 1,000 ML IV SCH (06:12)
[2016-11-26] MEDS: CHLORHEXIDINE 0.12% (ORAL KIT) 15 ML CUP MT SCH ×4 (07:36→21:18)
[2016-11-26] MEDS: FUROSEMIDE 20 MG TAB PO SCH ×2 (07:37→17:38)
[2016-11-26] MEDS: predniSONE 10 MG TAB PO SCH ×2 (07:37→21:18)
[2016-11-26] MEDS: SODIUM CHLORIDE 0.9% FLUSH 5 ML FLUSH FLUSH SCH ×2 (07:37→21:00)
[2016-11-26] MEDS: ATENOLOL 50 MG TAB PO SCH ×2 (07:37→21:18)
--- NOTE | 2016-11-26 08:05 | HHI.CCPN ---
Subjective Remarks/Hospital Course This is an 81-year-old male who has had multiple readmissions over the past few months for a recurrent right-sided pleural effusion. He represents from his long-term facility with recurrent right-sided pleural effusion as well as hypoxia and somnolence. He was found to have significant hypercarbia and a PCO2 in the 90s. He was initially placed on BiPAP and admitted to the [facility]. He became more somnolent and his oxygen saturation began to decline. At this point a critical care medicine is consulted to evaluate and manage his hypercarbic respiratory failure. Because he is failed his trial of noninvasive positive pressure ventilation, we will move towards intubating the patient. I evaluated the patient and he is essentially unresponsive and obtunded and only minimally withdrawing to pain. I can obtain no additional history from the patient. Subjective: 11/09: Early this a.m. at approximately 06:30 the patient was noted to have a grand mal seizure lasting approximately 60 seconds followed by a small tonic- clonic seizure lasting 30 seconds involving the lower extremities. The patient received Ativan 2 mg with cessation of seizure activity. Stat CT of the brain without contrast was obtained showed no acute abnormality. EEG was obtained previously awaiting results. Prior to the event the patient was noted to be on a fentanyl infusion at approximately 250 mcg/h. The patient was noted to be a GCS 10T, squeezing my hand. 11/10: The patient was noted to have multiple seizures requiring interventions with IV Ativan. Described as tonic-clonic in nature with eyes rolled back in the head. Gross motor movement shaking 4 extremities. Today the patient was noted to have a positive growth and blood cultures. WBC count elevated. Ammonia level was drawn less than 10, lactate was noted to be 2.2 this morning. Pleural fluid culture negative growth to date. 11/11: On stimulation patient continues to have jerking movement of all extremities. EEG negative for seizures. Check MRI today. Dr. Kirkland is neurology. Remains on 2 mcg/min of Levophed 11/12: Per neurologist, patient had witnessed with tonic convulsions started over right arm and propagated to left UE and both LE with fluttering of the eyes and upward gaze.Loaded with Dilantin iv infusion and a maintenance dose of 100mg Q8h, Stat EEG negative for seizures. Its unclear to me whether it is seizure or myoclonus 11/13: No change in neuro status. Continues to have jerking movements off lower extremity when stimulated. EEG 2 have been negative for seizures. We'll hold sedation for neuro exam 11/14: On sedation hold opens eyes. Appears to follow commands and upper extremity. Still has some tremulousness of the extremities. Remains off pressors 11/15: Remains on Precedex intermittently following commands for RN. Placed on CPAP tolerating well. No evidence of myoclonus now 11/16: On 1.1 mcg/kg/hr of Precedex. No spontaneous eye opening but moves all extremities spontaneously. Not following commands will reduce Precedex, and start weaning trials 11/17: Mental status significantly improved patient following commands on Precedex. However chest tube was dislodged yesterday evening, now has bilateral pleural effusions left is more than right, appears large. Vent day 10 11/18: Off Precedex following commands upper extremities. But continues to fail C Pap trials due to tachypnea and low tidal volumes. Status post large-volume left thoracentesis yesterday with 1.2 L of old blood-tinged fluid removed. 11/19: Overnight agitated, requiring maximum dose Precedex 1.4 mcg per kg per hr and restraints. Currently heavily sedated. Chest x-ray shows increasing left effusion confirmed by ultrasound. We'll proceed with left pigtail catheter after consent. Continue to hold Coumadin due to hemorrhagic effusion 11/20: Left pigtail chest tube placed yesterday with a 30 mL output. Mentation improving now oriented follows commands. Requiring oxygen by nasal cannula. Slight increase in right effusion seen on chest x-ray 11/21: CT chest shows moderate left-sided pneumothorax. Eating continues to be slightly tachypneic but patient appears comfortable. Agitated requiring 4 point restraints. Also a liver enzymes are increasing most likely secondary to Dilantin. I will DC Dilantin and start him on Keppra 11/22 No acute events overnight. On Precedex drip. Afebrile. CXR this morning showed no evidence of PTX. 11/23 Patient is on Precedex 0.7 awake and alert on 2L oxygen with good sats. 11/24 Patient is off Precedex drip. Afebrile. Awake and alert. 11/25 Called by nurse as patient was diaphoretic, tachypneic, tachycardic, hypertensive minimally responsive and had O2 saturation in 80's he was subsequently intubated and placed on mechanical ventilation. CXR from earlier showed volume loss, consolidation RUL. 11/26 Patient is sedated with Diprivan and intubated. s/p bronch yesterday which showed mucous plugs on right CXR post bronch showed much improved aeration of right lung. Afebrile Objective Vital Signs Date Time Temp Pulse Resp B/P Pulse Ox O2 Delivery O2 Flow Rate FiO2 11/26/16 07:18 99 35 11/26/16 06:00 79 11/26/16 04:00 99.1 18 101/56 11/25/16 07:18 Nasal Cannula 4.00 Intake and Output 11/25/16 11/25/16 11/26/16 08:00 16:00 00:00 Intake Total 0 ml 120 ml 463 ml Output Total 285 ml 612 ml 280 ml Balance -285 ml -492 ml 183 ml Result Diagram: 11/26/16 0310 11/26/16 0310 Other Results Laboratory Tests Test 11/25/16 11/26/16 17:34 03:10 Blood Gas Puncture Site LT RADIAL Blood Gas Patient Temperature 98.6 Blood Gas HCO3 36 mmol/L Blood Gas Base Excess 10.0 mmol/L Blood Gas Oxygen Saturation 97 % Arterial Blood pH 7.32 Arterial Blood Partial 72 mmHg Pressure CO2 Arterial Blood Partial 129 mmHg Pressure O2 Arterial Blood Oxygen Content 16.4 Vol % Arterial Blood 1.2 % Carboxyhemoglobin Arterial Blood Methemoglobin 0.9 % Blood Gas Hemoglobin 11.9 G/DL Oxygen Delivery Device VENTILATOR Blood Gas Ventilator Setting PRVC/AC Blood Gas Inspired Oxygen 100 % White Blood Count 14.2 TH/MM3 Red Blood Count 3.40 MIL/MM3 Hemoglobin 11.3 GM/DL Hematocrit 33.2 % Mean Corpuscular Volume 97.7 FL Mean Corpuscular Hemoglobin 33.4 PG Mean Corpuscular Hemoglobin 34.2 % Concent Red Cell Distribution Width 15.0 % Platelet Count 127 TH/MM3 Mean Platelet Volume 8.8 FL Prothrombin Time 17.0 SEC Prothromb Time International 1.5 RATIO Ratio Sodium Level 141 MEQ/L Potassium Level 4.0 MEQ/L Chloride Level 101 MEQ/L Carbon Dioxide Level 35.6 MEQ/L Anion Gap 4 MEQ/L Blood Urea Nitrogen 15 MG/DL Creatinine 0.62 MG/DL Estimat Glomerular Filtration 125 ML/MIN Rate Random Glucose 134 MG/DL Calcium Level 8.2 MG/DL Imaging Last Impressions Chest X-Ray 11/25/16 0600 Signed Impressions: Service Date/Time: Friday, November 25, 2016 04:04 - CONCLUSION: Volume loss and consolidation involving the right lung suggesting collapse of the right lung. Cardiomegaly. Charbel Fuchs Jr., MD Chest CT 11/20/16 0000 Signed Impressions: Service Date/Time: October 09:37 - CONCLUSION: 1. Left pneumothorax without tension 2. Small loculated effusion medial right base 3. Pericardial effusion as above Jimi Chavez MD Liver Ultrasound 11/17/16 0000 Signed Impressions: Service Date/Time: Thursday, November 17, 2016 15:58 - CONCLUSION: 1. Increased liver echogenicity characteristic of mild fatty infiltration or hepatocellular disease. 2. Trace free fluid in the abdomen. Pleural effusions. Mild gallbladder wall thickening. Chaka Campos MD Brain MRI 11/11/16 0000 Signed Impressions: Service Date/Time: Friday, November 11, 2016 12:53 - CONCLUSION: 1. 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 2. 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 The others would be consistent with punctate, remote areas of hemorrhage suggesting possibility of amyloid. Eitan Mendoza MD Head CT 11/09/16 0000 Signed Impressions: Service Date/Time: Wednesday, November 09, 2016 10:29 - CONCLUSION: Stable CT scan of the brain. Pradeep Rodriguez MD Chest Tube Insertion 11/08/16 0000 Signed Impressions: Service Date/Time: Tuesday, November 08, 2016 12:46 - CONCLUSION: Uncomplicated right chest tube placement as above. 1500 cc of fluid removed and sent for culture. Post CT scan reveals a large. pleural rind . The right lung may well not reexpanded. A.m. chest x-ray is pending. Cultures pending. Kun Mendoza MD FACR CT Angiography 11/07/16 0000 Signed Impressions: Service Date/Time: October 20:40 - CONCLUSION: 1. No pulmonary embolus. 2. Marked cardiac enlargement, especially the atria. 3. Bilateral effusions and atelectasis about the same on the left and considerably worse on the right. Right pneumothorax seen previously has resolved. Dhruv Foster MD Objective Remarks GENERAL: Patient is 81 yo intubated and sedated SKIN: Warm and dry. HEAD: Normocephalic. EYES: No scleral icterus. No injection or drainage. NECK: Supple, trachea midline. No JVD or lymphadenopathy. CARDIOVASCULAR: Regular rate and rhythm without murmurs, gallops, or rubs. RESPIRATORY: Breath sounds equal bilaterally. No accessory muscle use. GASTROINTESTINAL: Abdomen soft, non-tender, nondistended. MUSCULOSKELETAL: No cyanosis, or edema. Neuro: Sedated Date of Insertion: Nov 08, 2016 Side: Right Location: Internal, Jugular A/P Assessment and Plan Assessment: This is an 81-year-old male with history of prior recurrent right pleural effusions and COPD now presents with acute hypercarbic and hypoxic respiratory failure which has failed noninvasive positive pressure ventilation. Intubated and placed on mechanical ventilation. Covering COPD exacerbation, as well as healthcare associated pneumonia given his history of being on Levaquin at his long-term facility. He remains critically ill. Not sure that we will be able to get him through this hospitalization, and his recurrent respiratory failures are clearly making him more deconditioned every time he comes in the hospital. Despite this, daughter continues to request aggressive measures. Extubated 11/18/16 Plan by systems: Neurologic: Myoclonus-resolved Agitated delirium CO2 narcosis Metabolic encephalopathy Mild dementia -On Diprivan infusion for sedation. Use Ativan PRN for breakthrough seizures / myoclonus -EEG negative 11/10/15, 11/11/16 (moderate to severe encephalopathy, no seizure) -11/08 CT of the brain-no acute abnormality. 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 Question of amyloid -On Keppra 500 mg by mouth twice a day Respiratory: Acute hypercarbic and hypoxic respiratory failure-extubated - Reintubated 11/25 Recurrent right pleural effusion s/p chest tube placement-dislodged 11/17 New moderate left pneumothorax Right pneumothorax-resolved Large hemorrhagic left pleural effusion status post thoracentesis 11/17/16, pigtail chest tube 11/19/16 Healthcare associated pneumonia COPD exacerbation -Continue with vent support keep sat >92% -Bronchodilators, Mucomyst nebs -s/p Bronch 11/25: Mucous plugs on right CXR post bronch -much improved aeration of right lung Continue prednisone per Dr. Kitchen, -s/p anterior left anterior pigtail chest tube --Status post left thoracentesis 11/17/16 with 1.2 L of hemorrhagic fluid removed. CXR/US shows reaccumulation of left pleural fluid. pigtail chest tube placed 11/19/1611/08 S/P CT guided IR drainage of recurrent right posterior pleural effusion, unable to perform pleurodesis, accidentally dislodged Monitor CT drainage ( Left lateral CT drained 305 ml overnight) Cardiovascular: Severe pulmonary hypertension (PASP 85 on Echo 10/08/16, repeat echo 11/19/16 PASP was 47) A. fib RVR Hypertension Moderate to severe TR Continue with BP meds- (captopril and atenolol 11/14/16) --Monitor HR and BP keep MAP>65mmHg --Repeat 2d echo 11/19/16 PASP was 47 compared to 85 on 10/18/16. Renal: Hypernatremia- resolved Monitor renal function, I/O's, electrolytes replacement per protocol. -On Lasix 20mg BID, d/c IVF FEN/GI: Acute intravascular volume overload Acute protein calorie malnutritionsevere Elevated LFT's -Monitor LFT's...trending down -Start TF-Glucerna 1.5 with goal rate 45ml/hr Heme/ID: Healthcare associated pneumonia, staph aureus in sputum Leukocytosis- Afebrile -Off abx , Patient s/p Cefepime and Zithromax 11/08-11/13 and Rocephin 11/15-11/18 ID is following. Monitor for signs of infections ( Fever, WBC) Check Sputum cx and UA with CX if indicated 11/08 blood -micrococcus 08/28 possible contaminant - Urine cultures-NGTD --Sputum cx 11/12/16 with staph aureus Endocrine: Hyperglycemia of critical illness -- SSI, medium scale, every 6 hours Prophylaxis: GI Prophylaxis Protonix 40 mg IV every 24 hours DVT Prophylaxis --SCDs On Coumadin monitor INR/PT- INR 1.3 11/23 Lines: Peripheral IVsx 2. central line Vital Palliative care is following CCT 30 mins Otoniel Dominguez MD Nov 26, 2016 08:04
[2016-11-26] MEDS: levETIRAcetam 500 MG TAB PO SCH ×2 (09:00→21:00)
[2016-11-26] MEDS: SODIUM CHLORIDE 0.9% FLUSH 5 ML FLUSH IVF SCH (09:00)
[2016-11-26 10:12] LABS: BLOOD GAS BASE EXCESS 9.1 mmol/L (-2-2); BLOOD GAS CARBOXYHEMOGLOBIN 1.8 % (0-4); BLOOD GAS HCO3 33 mmol/L (22-26); BLOOD GAS METHEMOGLOBIN 1.4 % (0-2); BLOOD GAS O2 HGB SATURATION 94 % (90-100); BLOOD GAS OXYGEN CONTENT 14.3 Vol % (12.0-20.0); BLOOD GAS PCO2 40 mmHg (38-42); BLOOD GAS PO2 83 mmHg (61-120); BLOOD GAS TOTAL HGB 10.7 G/DL (12.0-16.0); CRITICAL VALUE YES; DRAW SITE RT RADIAL; FIO2 35 %; NUMBER OF ARTERIAL PUNCTURES 1; OXYGEN DEVICE VENTILATOR; STAT NO; TEMP CORR TO 98.6; ULNAR PULSE PRESENT; VENT SETTINGS 18/450/+5/IT1.0
--- NOTE | 2016-11-26 12:08 | HHI.PR ---
Subjective Remarks Has a Chest tube on the left.and a New catheter at left upper chest. He was intubated and placed on vent support, On O2 at 40 %. CXR is better. Objective Vital Signs Date Time Temp Pulse Resp B/P Pulse Ox O2 Delivery O2 Flow Rate FiO2 11/26/16 11:25 100 35 11/26/16 10:43 96 35 11/26/16 08:00 99.5 74 18 123/59 99 11/26/16 08:00 74 11/26/16 07:18 99 35 11/26/16 06:00 79 11/26/16 04:03 98 50 11/26/16 04:00 75 11/26/16 04:00 99.1 75 18 101/56 97 11/26/16 02:00 80 11/26/16 01:03 94 50 11/26/16 00:00 98.9 77 18 109/58 94 11/26/16 00:00 77 11/25/16 22:03 99 60 11/25/16 22:00 89 11/25/16 20:00 83 11/25/16 20:00 97.6 83 18 105/52 100 11/25/16 19:02 98 70 11/25/16 18:00 77 11/25/16 16:40 92 100 11/25/16 16:39 92 100 11/25/16 16:00 97.9 101 40 213/97 92 11/25/16 14:00 81 I/O 11/25/16 11/25/16 11/25/16 11/26/16 11/26/16 11/26/16 07:00 15:00 23:00 07:00 15:00 23:00 Intake Total 0 ml 120 ml 463 ml 585 ml Output Total 285 ml 612 ml 280 ml 235 ml Balance -285 ml -492 ml 183 ml 350 ml Intake Oral 0 ml 120 ml IV Total 0 ml 0 ml 463 ml 585 ml Output Urine Total 225 ml 325 ml 250 ml 225 ml Chest Tube Drainage Total 60 ml 287 ml 30 ml 10 ml # Bowel Movements 0 1 0 0 Result Diagram: 11/26/160 11/26/16 0310 Objective Remarks GENERAL: Elderly male awake and anxious . HEENT: Pupils are equal and react to light. Oral mucosa, nasal mucosa normal. NECK: Supple. JVP not raised. CHEST: mild wheeze. Decreased breath sounds at bases. Chest tubes X2 on left. CARDIOVASCULAR: S1, S2 normal. ABDOMEN: Benign.No mass. EXTREMITIES: 1 + edema. Neuro, Weak Legs Poor pulses.Alert and talking Assessment and Plan Assessment and Plan IMPRESSION 1. Ventilator dependent respiratory failure.Resolved 2. Pleural effusions status post chest tube placement. 3. Congestive heart failure. 4. Atrial fibrillation. 5. Pulmonary HTN Plan : 1. Vent support and FIo2 30 % 2. Nebs qid , duoneb. 3. Start Rocephin 1 G IV daily. 4. Chest tube to drainage 5. CXR ,BMP, CBC in am. 6. Tube feeds at 40 CC 7. IS at bedside qid 8. Prednisone 10 mg bid Paulo Rooney MD Nov 26, 2016 12:08
[2016-11-26] MEDS: cefTRIAXone INJ 1,000 MG in SODIUM CHLORIDE 0.9% INJ 100 ML IV SCH (13:58)
[2016-11-26 14:09] LABS: BLOOD, URINE NEG (NEG); COMMENT (UR) CATH-CULT NOT IND; CULTURE IF INDICATED CATH CULTURE NOT IND; GLUCOSE,URINE NEG (NEG); HYALINE CAST, URINE 10 /lpf (RARE); KETONE, URINE NEG (NEG); MUCUS URINE MANY /lpf (OCC); NITRITE,URINE NEG (NEG); SQUAMOUS EPITHELIAL CELL URINE 1 /hpf (0-5); URINE COLOR YELLOW (YELLW/STRAW)
--- NOTE | 2016-11-26 14:42 | HHI.HCPN ---
Reason for visit a. To assist with evaluation and management of symptoms including: pain, dyspnea, agitation b. To assist medical decision maker(s) with: better understanding of current medical conditions; weighing benefits/burdens of medical treatment options; making medical treatment decisions. . Subjective/Interval History Patient was found minimally responsive by nursing staff yesterday 11/25/16 diaphoretic, tachypneic, tachycardic and hypertensive. Oxygen saturations dropped into the 80s. Patient was subsequently reintubated and placed on mechanical ventilator. Imaging earlier in the day showed volume loss and consolidation involving the right lung. Follow-up chest x-ray status post bronchoscopy for mucous plug showed improved aeration of the right lung. Patient seen and assessed this morning in the [facility], room 500. He remains orotracheally intubated and sedated with Diprivan on mechanical ventilator. Patient now has 2 left - sided chest tubes. 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 Sputum culture on 11/12/16: + Staph Aureus. Pleural fluid culture negative; cytology negative for malignancy. WBC trending upward at 14.2, hemoglobin 11.3, hematocrit 33.2, platelets 127. Sputum culture from 11/26/16results pending. Started on IV Rocephin today . . Family/friend interactions Spoke to patient's daughter, Raissa, to provide an update on the patient's clinical condition and the acute hypoxic event event yesterday that led up to his reintubation. It was explained to the patient's daughter that the patient may not survive this hospitalization, and if he does he will likely have continued complications requiring rehospitalization. Discussed comfort vs. aggressive focus care and quality of life. Despite our conversation, the patient's daughter continues to request aggressive measures. . Advance Directives Advance Directive Specifics Health Care Surrogate(s): == No written designation of health care surrogacy. == Patient , has on several occasions, verbally stated that he wants BOTH of his children to participate in health care decision making if he is incapacitated to do so. . Documented care wishes: Patient's daughter has indicated during prior hospitalization that her father completed some type of written advanced directives but has not provided copies of these documents to date. . Objective Vital Signs Date Time Temp Pulse Resp B/P Pulse Ox O2 Delivery O2 Flow Rate FiO2 11/26/16 13:14 97 35 4/4/17 11:25 100 35 11/26/16 10:43 96 35 11/26/16 08:00 99.5 74 18 123/59 99 11/26/16 08:00 74 11/26/16 07:18 99 35 11/26/16 06:00 79 11/26/16 04:03 98 50 11/26/16 04:00 75 11/26/16 04:00 99.1 75 18 101/56 97 11/26/16 02:00 80 11/26/16 01:03 94 50 11/26/16 00:00 98.9 77 18 109/58 94 11/26/16 00:00 77 11/25/16 22:03 99 60 11/25/16 22:00 89 11/25/16 20:00 83 11/25/16 20:00 97.6 83 18 105/52 100 11/25/16 19:02 98 70 11/25/16 18:00 77 11/25/16 16:40 92 100 11/25/16 16:39 92 100 11/25/16 16:00 97.9 101 40 213/97 92 11/25/16 14:00 81 Intake & Output 11/26/16 11/26/16 07:00 19:00 Intake Total 1048 ml Output Total 515 ml Balance 533 ml IV Total 1048 ml Output Urine Total 475 ml Chest Tube Drainage Total 40 ml # Bowel Movements 0 . Physical Exam CONSTITUTIONAL/GENERAL: This is a frail, elderly male patient -currently intubated and sedated on mechanical ventilator TUBES/LINES/DRAINS: PIV x2, Vital, podus boots, pigtail chest tube 2, Vital catheter, soft restraints, ETT, OGT SKIN: Ecchymoses on upper extremities, multiple scabbed areas. BLE with venous insufficiency changes. HEAD: Atraumatic. Normocephalic. EYES: PERRLA ENT: Nose without bleeding or purulent drainage. NECK: Trachea midline. CARDIOVASCULAR: Regular rate and rhythm No murmurs, gallops, or rubs. Peripheral pulses symmetric. RESPIRATORY/CHEST: Intubated on mechanical ventilator; FiO2 35%. Left-sided chest tube 2 GASTROINTESTINAL: Abdomen soft, non-tender, nondistended. Hypoactive bowel sounds GENITOURINARY: Without palpable bladder distension. Vital catheter in place, draining dutch colored urine with sediment. MUSCULOSKELETAL: Pulses strong, equal. No edema in BLE. Trace edema in left upper extremity. No deformities. LYMPHATICS: No palpable cervical or supraclavicular adenopathy. NEUROLOGICAL: Sedated on Diprivan. PSYCHIATRIC: Unable to assess given patient's current condition. . Diagnostic Tests Laboratory Laboratory Tests Test 11/24/16 11/24/16 11/24/16 11/25/16 09:00 13:03 14:22 04:35 Blood Gas Puncture Site LT RADIAL Blood Gas Patient Temperature 98.6 Blood Gas HCO3 35 mmol/L (22-26) Blood Gas Base Excess 9.7 mmol/L (-2-2) Blood Gas Oxygen Saturation 94 % (90-100) Arterial Blood pH 7.40 (7.380-7.420) Arterial Blood Partial 58 mmHg (38-42) Pressure CO2 Arterial Blood Partial 86 mmHg Pressure O2 (61-120) Arterial Blood Oxygen Content 15.6 Vol % (12.0-20.0) Arterial Blood 1.7 % (0-4) Carboxyhemoglobin Arterial Blood Methemoglobin 1.1 % (0-2) Blood Gas Hemoglobin 11.8 G/DL (12.0-16.0) Oxygen Delivery Device NASAL CANNULA Blood Gas Liter Flow 2 L/M White Blood Count 10.4 TH/MM3 12.8 TH/MM3 (4.0-11.0) (4.0-11.0) Red Blood Count 3.58 MIL/MM3 3.77 MIL/MM3 (4.50-5.90) (4.50-5.90) Hemoglobin 11.9 GM/DL 12.5 GM/DL (13.0-17.0) (13.0-17.0) Hematocrit 35.1 % 37.0 % (39.0-51.0) (39.0-51.0) Mean Corpuscular Volume 98.3 FL 98.1 FL (80.0-100.0) (80.0-100.0) Mean Corpuscular Hemoglobin 33.2 PG 33.0 PG (27.0-34.0) (27.0-34.0) Mean Corpuscular Hemoglobin 33.8 % 33.7 % Concent (32.0-36.0) (32.0-36.0) Red Cell Distribution Width 15.2 % 15.0 % (11.6-17.2) (11.6-17.2) Platelet Count 170 TH/MM3 165 TH/MM3 (150-450) (150-450) Mean Platelet Volume 8.1 FL 9.5 FL (7.0-11.0) (7.0-11.0) Neutrophils (%) (Auto) 84.0 % 81.0 % (16.0-70.0) (16.0-70.0) Lymphocytes (%) (Auto) 7.9 % 10.8 % (9.0-44.0) (9.0-44.0) Monocytes (%) (Auto) 7.1 % (0.0-8.0) 6.6 % (0.0-8.0) Eosinophils (%) (Auto) 0.5 % (0.0-4.0) 0.6 % (0.0-4.0) Basophils (%) (Auto) 0.5 % (0.0-2.0) 1.0 % (0.0-2.0) Neutrophils # (Auto) 8.7 TH/MM3 10.4 TH/MM3 (1.8-7.7) (1.8-7.7) Lymphocytes # (Auto) 0.8 TH/MM3 1.4 TH/MM3 (1.0-4.8) (1.0-4.8) Monocytes # (Auto) 0.7 TH/MM3 0.8 TH/MM3 (0-0.9) (0-0.9) Eosinophils # (Auto) 0.1 TH/MM3 0.1 TH/MM3 (0-0.4) (0-0.4) Basophils # (Auto) 0.1 TH/MM3 0.1 TH/MM3 (0-0.2) (0-0.2) CBC Comment DIFF FINAL AUTO DIFF Differential Comment AUTO DIFF CONFIRMED Prothrombin Time 15.6 SEC 14.8 SEC (9.8-11.6) (9.8-11.6) Prothromb Time International 1.4 RATIO 1.3 RATIO Ratio Sodium Level 142 MEQ/L 139 MEQ/L (136-145) (136-145) Potassium Level 5.6 MEQ/L 4.2 MEQ/L 3.8 MEQ/L (3.5-5.1) (3.5-5.1) (3.5-5.1) Chloride Level 100 MEQ/L 98 MEQ/L (98-107) (98-107) Carbon Dioxide Level 33.8 MEQ/L 37.1 MEQ/L (21.0-32.0) (21.0-32.0) Anion Gap 8 MEQ/L (5-15) 4 MEQ/L (5-15) Blood Urea Nitrogen 15 MG/DL (7-18) 12 MG/DL (7-18) Creatinine 0.57 MG/DL 0.42 MG/DL (0.60-1.30) (0.60-1.30) Estimat Glomerular Filtration 137 ML/MIN 195 ML/MIN Rate (>89) (>89) Random Glucose 84 MG/DL 94 MG/DL (74-106) (74-106) Calcium Level 8.7 MG/DL 8.6 MG/DL (8.5-10.1) (8.5-10.1) Phosphorus Level 3.2 MG/DL 2.9 MG/DL (2.5-4.9) (2.5-4.9) Magnesium Level 1.9 MG/DL 1.9 MG/DL (1.5-2.5) (1.5-2.5) Total Bilirubin 0.5 MG/DL 0.5 MG/DL (0.2-1.0) (0.2-1.0) Aspartate Amino Transf 101 U/L (15-37) 77 U/L (15-37) (AST/SGOT) Alanine Aminotransferase 106 U/L (12-78) 110 U/L (12-78) (ALT/SGPT) Alkaline Phosphatase 193 U/L 184 U/L (45-117) (45-117) Total Protein 6.0 GM/DL 5.8 GM/DL (6.4-8.2) (6.4-8.2) Albumin 2.4 GM/DL 2.4 GM/DL (3.4-5.0) (3.4-5.0) Platelet Estimate NORMAL (NORMAL) Platelet Morphology Comment CLUMPED (NORMAL) Ovalocytes 1+ (NORMAL) Acanthocytes OCC (NORMAL) Test 11/25/16 11/26/16 11/26/16 17:34 03:10 10:00 Blood Gas Puncture Site LT RADIAL RT RADIAL Blood Gas Patient Temperature 98.6 98.6 Blood Gas HCO3 36 mmol/L 33 mmol/L (22-26) (22-26) Blood Gas Base Excess 10.0 mmol/L 9.1 mmol/L (-2-2) (-2-2) Blood Gas Oxygen Saturation 97 % (90-100) 94 % (90-100) Arterial Blood pH 7.32 7.52 (7.380-7.420) (7.380-7.420) Arterial Blood Partial 72 mmHg (38-42) 40 mmHg (38-42) Pressure CO2 Arterial Blood Partial 129 mmHg 83 mmHg Pressure O2 (61-120) (61-120) Arterial Blood Oxygen Content 16.4 Vol % 14.3 Vol % (12.0-20.0) (12.0-20.0) Arterial Blood 1.2 % (0-4) 1.8 % (0-4) Carboxyhemoglobin Arterial Blood Methemoglobin 0.9 % (0-2) 1.4 % (0-2) Blood Gas Hemoglobin 11.9 G/DL 10.7 G/DL (12.0-16.0) (12.0-16.0) Oxygen Delivery Device VENTILATOR VENTILATOR Blood Gas Ventilator Setting PRVC/AC 18/450/+5/IT1.0 Blood Gas Inspired Oxygen 100 % 35 % White Blood Count 14.2 TH/MM3 (4.0-11.0) Red Blood Count 3.40 MIL/MM3 (4.50-5.90) Hemoglobin 11.3 GM/DL (13.0-17.0) Hematocrit 33.2 % (39.0-51.0) Mean Corpuscular Volume 97.7 FL (80.0-100.0) Mean Corpuscular Hemoglobin 33.4 PG (27.0-34.0) Mean Corpuscular Hemoglobin 34.2 % Concent (32.0-36.0) Red Cell Distribution Width 15.0 % (11.6-17.2) Platelet Count 127 TH/MM3 (150-450) Mean Platelet Volume 8.8 FL (7.0-11.0) Prothrombin Time 17.0 SEC (9.8-11.6) Prothromb Time International 1.5 RATIO Ratio Sodium Level 141 MEQ/L (136-145) Potassium Level 4.0 MEQ/L (3.5-5.1) Chloride Level 101 MEQ/L (98-107) Carbon Dioxide Level 35.6 MEQ/L (21.0-32.0) Anion Gap 4 MEQ/L (5-15) Blood Urea Nitrogen 15 MG/DL (7-18) Creatinine 0.62 MG/DL (0.60-1.30) Estimat Glomerular Filtration 125 ML/MIN Rate (>89) Random Glucose 134 MG/DL (74-106) Calcium Level 8.2 MG/DL (8.5-10.1) . Result Diagram: 11/26/16 0310 11/26/16 0310 Microbiology Microbiology Date/Time Procedure Status Source Growth 11/26/16 11:30 Gram Stain Received Sputum Endotracheal Pending 11/26/16 11:30 Sputum Culture Received Sputum Endotracheal Pending . Microbiology Date/Time Procedure Status Source Growth 11/26/16 11:30 Gram Stain Received Sputum Endotracheal Pending 11/26/16 11:30 Sputum Culture Received Sputum Endotracheal Pending . Imaging Last 72 hours Impressions Chest X-Ray 11/25/16 0600 Signed Impressions: Service Date/Time: Friday, November 25, 2016 04:04 - CONCLUSION: Volume loss and consolidation involving the right lung suggesting collapse of the right lung. Cardiomegaly. Charbel Fuchs Jr., MD Chest X-Ray 11/25/16 0000 Signed Impressions: Service Date/Time: Friday, November 25, 2016 17:14 - CONCLUSION: Overall improvement in the aeration of the right lung. Lucia Izaguirre MD . Procedures 11/08/16: Intubation 11/08/16: Right IJ central line placement 11/08/16: Right chest tube placement with thoracentesis 11/15/16: Left arterial line removed 11/17/16: Chest tube removed 11/17/16: Thoracentesis. 11/18/16: Extubation 11/19/16: Left pigtail chest tube placement 11/25/16: Bronchoscopy 11/25/16: Reintubation 11/25/16: OGT 11/25/16: Second chest tube placed in left chest wall . . Assessment and Plan Disease Oriented Problem List: (1) Pleural effusion (2) Congestive heart failure (3) Chronic atrial fibrillation (4) Pneumothorax (5) Hypertension (6) Acute respiratory failure with hypoxia and hypercapnia (7) COPD (chronic obstructive pulmonary disease) (8) Pneumonia (9) Protein-calorie malnutrition, severe Symptom Scale: (1) Dyspnea 0-10 Scale: Unable to quantify Comment: Sputum culture on 11/12/16: + Staph Aureus. Pleural fluid culture negative; cytology negative for malignancy. 11/25/16: Patient was found minimally responsive by nursing staff yesterday 11/25/16 diaphoretic, tachypneic, tachycardic and hypertensive. Oxygen saturations dropped into the 80s. Patient was subsequently reintubated and placed on mechanical ventilator. Imaging earlier in the day showed volume loss and consolidation involving the right lung. Follow-up chest x-ray status post bronchoscopy for mucous plug showed improved aeration of the right lung. Second chest tube placed and left chest wall. Sputum culture from 11/26/16results pending. Started on IV Rocephin today . . (2) Pain 0-10 Scale: Unable to quantify Comment: Probable causes of pain include dyspnea, infection, invasiveness lines , skin breakdown, immobility, bedbound status etc. Titrating Precedex drip as needed. PRN acetaminophen is available for pain/fever as well. (3) Agitation Comment: IV Haldol is ordered q4 hours PRN for agitation; doses administered in the past 24 hours. If Haldol is ineffective in managing patient's agitation, low dose lorazepam (1mg IV q4 hours PRN) is recommended as adjunctive therapy. Pertinent Non-Medical Issues Psychosocial: Patient is originally from [facility] but has lived in [place] since . 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 He was and , many years ago. He has 2 children. His daughter, Raissa daniels, lives locally and is very involved in the patient's care. The patient also has a son living in [place], but reportedly has not seen him in the last 5 years. The patient does keep in touch. The patient lives alone. His daughter lives a few blocks away and assist the patient with shopping and meal preparation. Spiritual: The patient comes from Church tradition. Per his daughter, pentecostalism and spirituality have not been an important part of his life. Legal: Patient is currently incapacitated and unable to participate in clarification of medical treatment goals. It is unclear at this time if the patient will ever became this capacity. Per [place] statutes, in the absence of written advanced directives healthcare proxy decision making would fall to the patient's 2 adult children. Patient, has on several occasions during previous hospitalization, verbally stated that he wanted BOTH of his children to participate in health care decision making if he is incapacitated to do so. Ethical issues impacting care: No known ethical issues impacting care at this time. Important Contacts Raissa Duncan (daughter) [phone] Anselmo Duncan (son) [phone] Aneesh Walls (friend) [phone] . Prognosis This is an 81-year-old male with an extensive history (decades) of congestive heart failure complicated by underlying COPD, history of alcohol abuse. Patient has been declining since March 2016 particularly with recurrent right pleural effusions. He has required > 5 thoracenteses since that time. He has been living at [facility] since his last discharge from [facility] on 10/20/16. There is known ischemic heart disease and failure may be primarily due to valvular heart disease. There is severe tricuspid regurgitation. Patient There is a reasonable chance he will continue to improve well enough to survive the hospitalization. Based on his history of the last few months, long-term prognosis is not good. Life expectancy is probably in the order of months. Patient would certainly be eligible for hospice services at such time as his goals become mostly comfort oriented. Code Status: Full Code Plan * FULL CODE * Decision making: Patient is currently incapacitated and unable to participate in clarification of medical treatment goals. It is unclear at this time if the patient will ever became this capacity. Per [place] statutes, in the absence of written advanced directives healthcare proxy decision making would fall to the patient's 2 adult children. Patient, has on several occasions during previous hospitalization, verbally stated that he wanted BOTH of his children to participate in health care decision making if he is incapacitated to do so. * GOALS: Aggressive goals * Symptom managementdyspnea: = Sputum culture on 11/12/16: + Staph Aureus. Pleural fluid culture negative; cytology negative for malignancy. = 11/25/16: Patient was found minimally responsive by nursing staff yesterday 11/25/16diaphoretic, tachypneic, tachycardic and hypertensive. Oxygen saturations dropped into the 80s. Patient was subsequently reintubated and placed on mechanical ventilator. Imaging earlier in the day showed volume loss and consolidation involving the right lung. Follow- up chest x-ray status post bronchoscopy for mucous plug showed improved aeration of the right lung. Now with 2 left-sided chest tubes. = Sputum culture from 11/26/16results pending. Started on IV Rocephin today 11/26/16. * Symptom managementpain: Probable causes of pain include dyspnea, infection, invasiveness lines, skin breakdown, immobility, bedbound status etc. PRN acetaminophen is available for pain/fever as well. Palliative care will monitor for s/s nonverbal pain and make recommendations as indicated. * Symptom management- agitation: IV Haldol is ordered q4 hours PRN for agitation ; doses administered in the past 24 hours. If Haldol is ineffective in managing patient's agitation, low dose lorazepam (1mg IV q4 hours PRN) is recommended as adjunctive therapy. * Spoke to patient's daughter, Raissa, to provide an update on the patient's clinical condition and the acute hypoxic event event yesterday that led up to his reintubation. It was explained to the patient's daughter that the patient may not survive this hospitalization, and if he does he will likely have continued complications requiring rehospitalization. Discussed comfort vs. aggressive focus care and quality of life. Despite our conversation, the patient's daughter continues to request aggressive measures. * Palliative care will continue to follow this patient throughout his hospitalization to establish trust, assist with symptom management and clarification of medical treatment goals. . Attestation To help prompt me to consider important information that might be impacting today's encounter and assessment, information from prior notes written by myself or my colleagues may have been "brought forward" into today's note. My signature on this note, however, is an attestation that I personally performed the exam, history, and/or decision-making noted today, and, unless otherwise indicated, the interactions with patient, family, and staff as well as the review of records all occurred today. I also attest that the listed assessment and stated plan reflect my best clinical judgment today based on the combination of historical information, prior notes, and today's exam/ interactions. When time spent is documented, it refers only to time spent today by the signer, or if indicated, combined time spent today by collaborating physician/nurse practitioner. . Sujatha Elliott Nov 26, 2016 14:26
[2016-11-26] MEDS ORDERED: WARFARIN SOD 2 MG TAB PO SCH (16:00)
[2016-11-26] MEDS: WARFARIN SOD 6 MG TAB PO SCH (16:03)
--- NOTE | 2016-11-26 17:39 | HHI.PR ---
Objective Vitals Vital Signs Date Time Temp Pulse Resp B/P Pulse Ox O2 Delivery O2 Flow Rate FiO2 11/26/16 15:08 99 30 11/26/16 14:23 97 30 11/26/16 14:00 73 11/26/16 13:14 97 35 11/26/16 12:00 70 11/26/16 12:00 99.7 70 16 121/58 100 11/26/16 11:25 100 35 11/26/16 10:43 96 35 11/26/16 10:00 74 11/26/16 08:00 99.5 74 18 123/59 99 11/26/16 08:00 74 11/26/16 07:18 99 35 11/26/16 06:00 79 11/26/16 04:03 98 50 11/26/16 04:00 75 11/26/16 04:00 99.1 75 18 101/56 97 11/26/16 02:00 80 11/26/16 01:03 94 50 11/26/16 00:00 98.9 77 18 109/58 94 11/26/16 00:00 77 11/25/16 22:03 99 60 11/25/16 22:00 89 11/25/16 20:00 83 11/25/16 20:00 97.6 83 18 105/52 100 11/25/16 19:02 98 70 11/25/16 18:00 77 I/O 11/25/16 11/25/16 11/25/16 11/26/16 11/26/16 11/26/16 07:00 15:00 23:00 07:00 15:00 23:00 Intake Total 0 ml 120 ml 463 ml 585 ml 707 ml Output Total 285 ml 612 ml 280 ml 235 ml 398 ml Balance -285 ml -492 ml 183 ml 350 ml 309 ml Intake Oral 0 ml 120 ml IV Total 0 ml 0 ml 463 ml 585 ml 707 ml Output Urine Total 225 ml 325 ml 250 ml 225 ml 250 ml Chest Tube Drainage Total 60 ml 287 ml 30 ml 10 ml 148 ml # Bowel Movements 0 1 0 0 0 Result Diagram: 11/26/1630911/26/16309 Date of Insertion: Nov 08, 2016 Side: Right Location: Internal, Jugular A/P Problem List: (1) Acute respiratory failure with hypoxia and hypercapnia ICD Code: J96.01 Status: Acute (2) Pleural effusion, right ICD Code: J90 Status: Acute (3) Dyspnea ICD Code: R06.00 Status: Acute (4) Pulmonary artery hypertension ICD Code: I27.2 Status: Acute Problem Qualifiers (1) Dyspnea: Qualified Code: R06.02 - Shortness of breath Jus Beatty MD Nov 26, 2016 17:39
[2016-11-27] VITALS (19 sets, daily range): BP systolic 101–141; BP diastolic 54–64; PULSE 66–80; RESP 12–22; TEMP 97.6–100; O2SAT 96–100
[2016-11-27] MEDS: RESP: ALBUTEROL 2.5 MG/IPRATROPIUM 0.5 MG NEB (SCH) NEB ×4 (03:34→20:48)
[2016-11-27] MEDS: RESP: ACETYLCYSTEINE 10% 30 ML NEB NEB SCH ×4 (03:34→20:48)
[2016-11-27 04:21] LABS: AUTOMATED NEUTROPHIL # 8.4 TH/MM3 (1.8-7.7); BASOPHIL % 0.2 % (0.0-2.0); EOSINOPHIL % 0.4 % (0.0-4.0); HEMATOCRIT 32.1 % (39.0-51.0); LYMPHOCYTE # 0.8 TH/MM3 (1.0-4.8); MEAN CORPUSCULAR HGB CONC 33.7 % (32.0-36.0); MONO % 7.1 % (0.0-8.0); NEUT % 84.3 % (16.0-70.0); PLATELET COUNT 97 TH/MM3 (150-450); RED BLOOD COUNT 3.28 MIL/MM3 (4.50-5.90)
[2016-11-27 04:28] LABS: INTERNATIONAL NORMALIZED RATIO 1.7 RATIO
[2016-11-27 04:32] LABS: HEMO FLAGS AUTO DIFF
--- NOTE | 2016-11-27 04:33 | RADRPT ---
EXAM DATE/TIME: 11/27/2016 03:22 [facility] COMPARISON: CHEST SINGLE AP, November 25, 2016, 17:14. INDICATIONS : Shortness of breath. MEDICAL HISTORY : Cardiovascular disease. Hypertension Congestive heart failure. SURGICAL HISTORY : None. ENCOUNTER: Subsequent ACUITY: 2 months PAIN SCORE: Non-responsive. LOCATION: Bilateral chest FINDINGS: 2 portable frontal views of the chest show an endotracheal tube with the tip 2 cm proximal to laura. Nasogastric tube courses off the inferior margin of the film. Small caliber chest tube is seen withi n the left lung base. Worsening consolidation within the right lower lobe. Left lung is clear. Rounde d atelectasis is seen within the left lung base. Small right effusion is stable. Heart is enlarged. CONCLUSION: Worsening right lower lobe infiltrate. Charbel Fuchs Jr., MD on November 27, 2016 at 4:31 Board Certified Radiologist. This report was verified electronically.
[2016-11-27 04:38] LABS: ALT (GPT) 52 U/L (12-78); ANION GAP 6 MEQ/L (5-15); AST (GOT) 26 U/L (15-37); BICARBONATE 33.9 MEQ/L (21.0-32.0); BLOOD UREA NITROGEN 13 MG/DL (7-18); CHLORIDE 103 MEQ/L (98-107); GLOMERULAR FILTRATION RATE 149 ML/MIN (>89); MAGNESIUM 1.7 MG/DL (1.5-2.5); POTASSIUM 3.6 MEQ/L (3.5-5.1); SODIUM (NA) 143 MEQ/L (136-145)
[2016-11-27 04:40] LABS: ALKALINE PHOSPHATASE 137 U/L (45-117); TOTAL BILIRUBIN ADULT 0.6 MG/DL (0.2-1.0)
[2016-11-27] MEDS: INSULIN NovoLIN REGULAR SUPPLEMENTAL SCALE SQ SCH ×4 (05:54→17:37)
[2016-11-27 06:57] LABS: PLATELET ESTIMATE SMEAR LOW (NORMAL); PLATELET MORPHOLOGY NORMAL (NORMAL); SCAN/DIFF AUTO DIFF CONFIRMED
[2016-11-27] MEDS: CHLORHEXIDINE 0.12% (ORAL KIT) 15 ML CUP MT SCH ×4 (08:00→20:37)
[2016-11-27] MEDS: PROPOFOL 1000 MG/100 ML INJ 100 ML IV SCH ×2 (08:48→16:38)
[2016-11-27] MEDS: levETIRAcetam 500 MG TAB PO SCH ×2 (08:48→20:37)
[2016-11-27] MEDS: SODIUM CHLORIDE 0.9% FLUSH 5 ML FLUSH FLUSH SCH ×2 (08:49→20:37)
[2016-11-27] MEDS: SODIUM CHLORIDE 0.9% FLUSH 5 ML FLUSH IVF SCH (08:49)
[2016-11-27] MEDS: FUROSEMIDE 20 MG TAB PO SCH ×2 (08:49→17:37)
[2016-11-27] MEDS: predniSONE 10 MG TAB PO SCH ×2 (08:49→20:37)
[2016-11-27] MEDS: ATENOLOL 50 MG TAB PO SCH ×2 (08:49→20:37)
--- NOTE | 2016-11-27 09:26 | HHI.CCPN ---
Subjective Remarks/Hospital Course This is an 81-year-old male who has had multiple readmissions over the past few months for a recurrent right-sided pleural effusion. He represents from his residential facility with recurrent right-sided pleural effusion as well as hypoxia and somnolence. He was found to have significant hypercarbia and a PCO2 in the 90s. He was initially placed on BiPAP and admitted to the [facility]. He became more somnolent and his oxygen saturation began to decline. At this point a critical care medicine is consulted to evaluate and manage his hypercarbic respiratory failure. Because he is failed his trial of noninvasive positive pressure ventilation, we will move towards intubating the patient. I evaluated the patient and he is essentially unresponsive and obtunded and only minimally withdrawing to pain. I can obtain no additional history from the patient. Subjective: 11/09: Early this a.m. at approximately 06:30 the patient was noted to have a grand mal seizure lasting approximately 60 seconds followed by a small tonic- clonic seizure lasting 30 seconds involving the lower extremities. The patient received Ativan 2 mg with cessation of seizure activity. Stat CT of the brain without contrast was obtained showed no acute abnormality. EEG was obtained previously awaiting results. Prior to the event the patient was noted to be on a fentanyl infusion at approximately 250 mcg/h. The patient was noted to be a GCS 10T, squeezing my hand. 11/10: The patient was noted to have multiple seizures requiring interventions with IV Ativan. Described as tonic-clonic in nature with eyes rolled back in the head. Gross motor movement shaking 4 extremities. Today the patient was noted to have a positive growth and blood cultures. WBC count elevated. Ammonia level was drawn less than 10, lactate was noted to be 2.2 this morning. Pleural fluid culture negative growth to date. 11/11: On stimulation patient continues to have jerking movement of all extremities. EEG negative for seizures. Check MRI today. Dr. Kirkland is neurology. Remains on 2 mcg/min of Levophed 11/12: Per neurologist, patient had witnessed with tonic convulsions started over right arm and propagated to left UE and both LE with fluttering of the eyes and upward gaze.Loaded with Dilantin iv infusion and a maintenance dose of 100mg Q8h, Stat EEG negative for seizures. Its unclear to me whether it is seizure or myoclonus 11/13: No change in neuro status. Continues to have jerking movements off lower extremity when stimulated. EEG 2 have been negative for seizures. We'll hold sedation for neuro exam 11/14: On sedation hold opens eyes. Appears to follow commands and upper extremity. Still has some tremulousness of the extremities. Remains off pressors 11/15: Remains on Precedex intermittently following commands for RN. Placed on CPAP tolerating well. No evidence of myoclonus now 11/16: On 1.1 mcg/kg/hr of Precedex. No spontaneous eye opening but moves all extremities spontaneously. Not following commands will reduce Precedex, and start weaning trials 11/17: Mental status significantly improved patient following commands on Precedex. However chest tube was dislodged yesterday evening, now has bilateral pleural effusions left is more than right, appears large. Vent day 10 11/18: Off Precedex following commands upper extremities. But continues to fail C Pap trials due to tachypnea and low tidal volumes. Status post large-volume left thoracentesis yesterday with 1.2 L of old blood-tinged fluid removed. 11/19: Overnight agitated, requiring maximum dose Precedex 1.4 mcg per kg per hr and restraints. Currently heavily sedated. Chest x-ray shows increasing left effusion confirmed by ultrasound. We'll proceed with left pigtail catheter after consent. Continue to hold Coumadin due to hemorrhagic effusion 11/20: Left pigtail chest tube placed yesterday with a 30 mL output. Mentation improving now oriented follows commands. Requiring oxygen by nasal cannula. Slight increase in right effusion seen on chest x-ray 11/21: CT chest shows moderate left-sided pneumothorax. Eating continues to be slightly tachypneic but patient appears comfortable. Agitated requiring 4 point restraints. Also a liver enzymes are increasing most likely secondary to Dilantin. I will DC Dilantin and start him on Keppra 11/22 No acute events overnight. On Precedex drip. Afebrile. CXR this morning showed no evidence of PTX. 11/23 Patient is on Precedex 0.7 awake and alert on 2L oxygen with good sats. 11/24 Patient is off Precedex drip. Afebrile. Awake and alert. 11/25 Called by nurse as patient was diaphoretic, tachypneic, tachycardic, hypertensive minimally responsive and had O2 saturation in 80's he was subsequently intubated and placed on mechanical ventilation. CXR from earlier showed volume loss, consolidation RUL. 11/26 Patient is sedated with Diprivan and intubated. s/p bronch yesterday which showed mucous plugs on right CXR post bronch showed much improved aeration of right lung. Afebrile 11/27: Remains sedated with propofol, orally intubated on mechanical ventilation. 2 left-sided pigtail catheter is in place with posterior pigtail catheter having positive air leak. Objective Vital Signs Date Time Temp Pulse Resp B/P Pulse Ox O2 Delivery O2 Flow Rate FiO2 11/27/16 08:00 98.6 66 16 130/61 100 11/27/16 08:00 45 11/25/16 07:18 Nasal Cannula 4.00 Intake and Output 11/26/16 11/26/16 11/27/16 08:00 16:00 00:00 Intake Total 585 ml 707 ml 719 ml Output Total 235 ml 398 ml 405 ml Balance 350 ml 309 ml 314 ml Result Diagram: 11/27/16 0316 11/27/16 0316 Other Results Laboratory Tests Test 11/26/16 10:00 Blood Gas Puncture Site RT RADIAL Blood Gas Patient Temperature 98.6 Blood Gas HCO3 33 mmol/L (22-26) Blood Gas Base Excess 9.1 mmol/L (-2-2) Blood Gas Oxygen Saturation 94 % (90-100) Arterial Blood pH 7.52 (7.380-7.420) Arterial Blood Partial 40 mmHg (38-42) Pressure CO2 Arterial Blood Partial 83 mmHg Pressure O2 (61-120) Arterial Blood Oxygen Content 14.3 Vol % (12.0-20.0) Arterial Blood 1.8 % (0-4) Carboxyhemoglobin Arterial Blood Methemoglobin 1.4 % (0-2) Blood Gas Hemoglobin 10.7 G/DL (12.0-16.0) Oxygen Delivery Device VENTILATOR Blood Gas Ventilator Setting 18/450/+5/IT1.0 Blood Gas Inspired Oxygen 35 % Imaging Last Impressions Chest X-Ray 11/25/16 0600 Signed Impressions: Service Date/Time: Friday, November 25, 2016 04:04 - CONCLUSION: Volume loss and consolidation involving the right lung suggesting collapse of the right lung. Cardiomegaly. Charbel Fuchs Jr., MD Chest CT 11/20/16 0000 Signed Impressions: Service Date/Time: October 09:37 - CONCLUSION: 1. Left pneumothorax without tension 2. Small loculated effusion medial right base 3. Pericardial effusion as above Jimi Chavez MD Liver Ultrasound 11/17/16 0000 Signed Impressions: Service Date/Time: Thursday, November 17, 2016 15:58 - CONCLUSION: 1. Increased liver echogenicity characteristic of mild fatty infiltration or hepatocellular disease. 2. Trace free fluid in the abdomen. Pleural effusions. Mild gallbladder wall thickening. Chaka Campos MD Brain MRI 11/11/16 0000 Signed Impressions: Service Date/Time: Friday, November 11, 2016 12:53 - CONCLUSION: 1. 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 2. 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 The others would be consistent with punctate, remote areas of hemorrhage suggesting possibility of amyloid. Eitan Mendoza MD Head CT 11/09/16 0000 Signed Impressions: Service Date/Time: Wednesday, November 09, 2016 10:29 - CONCLUSION: Stable CT scan of the brain. Pradeep Rodriguez MD Chest Tube Insertion 11/08/16 0000 Signed Impressions: Service Date/Time: Tuesday, November 08, 2016 12:46 - CONCLUSION: Uncomplicated right chest tube placement as above. 1500 cc of fluid removed and sent for culture. Post CT scan reveals a large. pleural rind . The right lung may well not reexpanded. A.m. chest x-ray is pending. Cultures pending. Kun Mendoza MD FACR CT Angiography 11/07/16 0000 Signed Impressions: Service Date/Time: October 20:40 - CONCLUSION: 1. No pulmonary embolus. 2. Marked cardiac enlargement, especially the atria. 3. Bilateral effusions and atelectasis about the same on the left and considerably worse on the right. Right pneumothorax seen previously has resolved. Dhruv Foster MD Objective Remarks HEENT/ Neuro: Sedated, orally intubated, Pallor present, no icterus, tongue/ mucosa moist Neck: No JVD Chest/Pulm: on mech vent, good air entry bilaterally, no wheezing or crackles. Scattered rhonchi. 2 pigtail catheters in left pleural cavity, posterior pigtail catheter with positive air leak CVS: S1-S2 regular, no murmur GI/abdomen: soft, nontender, bowel sounds sluggish Extremities: warm bilaterally, no edema, hyperpigmentation noted bilaterally up to below knees. Date of Insertion: Nov 08, 2016 Side: Right Location: Internal, Jugular A/P Assessment and Plan Assessment: This is an 81-year-old male with history of prior recurrent right pleural effusions and COPD now presents with acute hypercarbic and hypoxic respiratory failure which has failed noninvasive positive pressure ventilation. Intubated and placed on mechanical ventilation. Covering COPD exacerbation, as well as healthcare associated pneumonia given his history of being on Levaquin at his residential facility. He remains critically ill. Not sure that we will be able to get him through this hospitalization, and his recurrent respiratory failures are clearly making him more deconditioned every time he comes in the hospital. Despite this, daughter continues to request aggressive measures. Extubated 11/18/16 Plan by systems: Neurologic: Myoclonus-resolved Agitated delirium CO2 narcosis Metabolic encephalopathy Mild dementia -On Diprivan infusion for sedation. Use Ativan PRN for breakthrough seizures / myoclonus -EEG negative 11/10/15, 11/11/16 (moderate to severe encephalopathy, no seizure) -11/08 CT of the brain-no acute abnormality. 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 Question of amyloid -On Keppra 500 mg by mouth twice a day Respiratory: Acute hypercarbic and hypoxic respiratory failure-extubated - Reintubated 11/25 Recurrent right pleural effusion s/p chest tube placement-dislodged 11/17 New moderate left pneumothorax Right pneumothorax-resolved Large hemorrhagic left pleural effusion status post thoracentesis 11/17/16, pigtail chest tube 11/19/16 Healthcare associated pneumonia COPD exacerbation -Continue with vent support keep sat >92% -Bronchodilators, Mucomyst nebs -s/p Bronch 11/25: Mucous plugs on right CXR post bronch -much improved aeration of right lung Continue prednisone per Dr. Kitchen, -s/p anterior left anterior pigtail chest tube --Status post left thoracentesis 11/17/16 with 1.2 L of hemorrhagic fluid removed. CXR/US shows reaccumulation of left pleural fluid. pigtail chest tube placed 11/19/1611/08 S/P CT guided IR drainage of recurrent right posterior pleural effusion, unable to perform pleurodesis, accidentally dislodged Monitor CT drainage ( Left lateral CT-+ air leak) Cardiovascular: Severe pulmonary hypertension (PASP 85 on Echo 10/08/16, repeat echo 11/19/16 PASP was 47) A. fib RVR Hypertension Moderate to severe TR Continue with BP meds- (captopril and atenolol 11/14/16) --Monitor HR and BP keep MAP>65mmHg --Repeat 2d echo 11/19/16 PASP was 47 compared to 85 on 10/18/16. Renal: Hypernatremia- resolved Monitor renal function, I/O's, electrolytes replacement per protocol. -On Lasix 20mg BID, d/c IVF FEN/GI: Acute intravascular volume overload Acute protein calorie malnutritionsevere Elevated LFT's -Monitor LFT's...trending down -Start TF-Glucerna 1.5 with goal rate 45ml/hr Heme/ID: Healthcare associated pneumonia, staph aureus in sputum Leukocytosis- Afebrile -Patient s/p Cefepime and Zithromax 11/08-11/13 and Rocephin 11/15-11/18 ID is following. Rocephin resumed for MSSA pneumonia on 11/26 Check Sputum cx and UA with CX if indicated 11/08 blood -micrococcus 08/28 possible contaminant - Urine cultures-NGTD --Sputum cx 11/12/16 with staph aureus Endocrine: Hyperglycemia of critical illness -- SSI, medium scale, every 6 hours Prophylaxis: GI Prophylaxis Protonix 40 mg IV every 24 hours DVT Prophylaxis --SCDs On Coumadin monitor INR/PT- INR 1.3 11/23 Lines: Peripheral IVsx 2. central line Vital Palliative care is following CCT 30 mins Ralph Rogers MD Nov 27, 2016 09:26
--- NOTE | 2016-11-27 13:15 | HHI.PR ---
Subjective Remarks Has a Chest tube on the left.and a New catheter at left upper chest. He is on vent support, A/C rate14, On O2 at 40 %. CXR is better. Objective Vital Signs Date Time Temp Pulse Resp B/P Pulse Ox O2 Delivery O2 Flow Rate FiO2 11/27/16 12:00 100.0 80 22 133/60 99 11/27/16 12:00 80 11/27/16 12:00 45 11/27/16 11:15 100 45 11/27/16 10:00 68 11/27/16 08:00 98.6 66 16 130/61 100 11/27/16 08:00 45 11/27/16 08:00 76 11/27/16 07:20 98 45 11/27/16 06:00 67 11/27/16 04:00 69 11/27/16 04:00 98.5 69 16 141/64 99 11/27/16 03:30 97 45 11/27/16 02:00 74 11/27/16 00:00 98.3 74 14 101/54 97 11/27/16 00:00 74 11/26/16 22:00 76 11/26/16 20:00 98.2 80 14 130/62 92 11/26/16 20:00 80 11/26/16 19:13 94 30 11/26/16 18:00 70 11/26/16 16:00 98.1 74 12 128/58 90 11/26/16 16:00 74 11/26/16 15:08 99 30 11/26/16 14:23 97 30 11/26/16 14:00 73 11/26/16 13:14 97 35 I/O 11/26/16 11/26/16 11/26/16 11/27/16 11/27/16 11/27/16 07:00 15:00 23:00 07:00 15:00 23:00 Intake Total 585 ml 707 ml 719 ml 577 ml Output Total 235 ml 398 ml 405 ml 755 ml Balance 350 ml 309 ml 314 ml -178 ml IV Total 585 ml 707 ml 719 ml 577 ml Output Urine Total 225 ml 250 ml 300 ml 250 ml Chest Tube Drainage Total 10 ml 148 ml 105 ml 505 ml # Bowel Movements 0 0 0 0 Result Diagram: 11/27/1631511/27/16315 Objective Remarks GENERAL: Elderly male awake and anxious . HEENT: Pupils are equal and react to light. Oral mucosa, nasal mucosa normal. NECK: Supple. JVP not raised. CHEST: Occ wheeze. Decreased breath sounds at bases. Chest tubes X2 on left. CARDIOVASCULAR: S1, S2 normal. ABDOMEN: Benign.No mass. EXTREMITIES: 1 + edema. Neuro, Weak Legs Assessment and Plan Assessment and Plan IMPRESSION 1. Ventilator dependent respiratory failure.Resolved 2. Pleural effusions status post chest tube placement. 3. Congestive heart failure. 4. Atrial fibrillation. 5. Pulmonary HTN Plan : 1. Vent support and FIo2 40 % 2. Nebs qid , duoneb. 3. CPAP today and ABG in 1 hr 4. Chest tube to drainage 5. CXR ,BMP, CBC in am. 6. Tube feeds at 40 CC 7. IS at bedside qid 8. Prednisone 10 mg bid 9. Stop sedation Paulo Rooney MD Nov 27, 2016 13:15 Paulo Rooney MD Nov 27, 2016 13:15
[2016-11-27] MEDS: cefTRIAXone INJ 1,000 MG in SODIUM CHLORIDE 0.9% INJ 100 ML IV SCH (14:06)
[2016-11-27] MEDS ORDERED: ROCURONIUM INJ 50 MG/5 ML VIAL ONE (15:51)
[2016-11-27] MEDS ORDERED: MIDAZOLAM HCL 5 MG/ML VIAL (1 ML) ONE (15:53)
[2016-11-27] MEDS: WARFARIN SOD 6 MG TAB PO SCH (16:38)
[2016-11-28] VITALS (17 sets, daily range): BP systolic 121–145; BP diastolic 59–70; PULSE 63–83; RESP 14–16; TEMP 97.6–99.1; O2SAT 93–99
[2016-11-28] MEDS: PROPOFOL 1000 MG/100 ML INJ 100 ML IV SCH ×4 (01:05→17:25)
[2016-11-28] MEDS: RESP: ALBUTEROL 2.5 MG/IPRATROPIUM 0.5 MG NEB (SCH) NEB ×4 (03:12→19:36)
[2016-11-28] MEDS: RESP: ACETYLCYSTEINE 10% 30 ML NEB NEB SCH ×4 (04:00→19:37)
[2016-11-28] MEDS: RESP: ALBUTEROL 2.5 MG/IPRATROPIUM 0.5 MG NEB (PRN) INH (05:10)
[2016-11-28 05:16] LABS: INTERNATIONAL NORMALIZED RATIO 1.8 RATIO; PROTHROMBIN TIME - PATIENT 20.7 SEC (9.8-11.6)
[2016-11-28] MEDS: INSULIN NovoLIN REGULAR SUPPLEMENTAL SCALE SQ SCH ×4 (06:00→17:45)
--- NOTE | 2016-11-28 07:01 | RADRPT ---
EXAM DATE/TIME: 11/28/2016 06:34 [facility] COMPARISON: CHEST SINGLE AP, November 27, 2016, 3:22. INDICATIONS : Short of breath, evaluate pneumothorax, chest tube on left MEDICAL HISTORY : Cardiovascular disease. Congestive heart failure. hypertension SURGICAL HISTORY : None. ENCOUNTER: Subsequent ACUITY: 2 months PAIN SCORE: Non-responsive. LOCATION: Bilateral chest FINDINGS: A single portable frontal view of the chest shows worsening consolidation left lung base. Stable cons olidation within the right lung base. Tiny effusions. Heart and aorta. Tip of the endotracheal tube 2 cm proximal to the laura. Nasogastric tube and left small caliber thoracostomy tube observed. There is a questionable pneumothorax on the left. There is a linear density seen involving the apex. I do not definitively see vascular markings cephalad to this. CONCLUSION: 1. Probable small left apical pneumothorax. 2. Worsening consolidation the left lung base. 3. Stable consolidation right lung base. 4. Stable small effusions. Charbel Fuchs Jr., MD on November 28, 2016 at 6:58 Board Certified Radiologist. This report was verified electronically.
[2016-11-28] MEDS: SODIUM CHLORIDE 0.9% FLUSH 5 ML FLUSH FLUSH SCH ×2 (09:00→21:00)
[2016-11-28] MEDS: SODIUM CHLORIDE 0.9% FLUSH 5 ML FLUSH IVF SCH (09:00)
[2016-11-28] MEDS: levETIRAcetam 500 MG TAB PO SCH ×2 (09:05→21:45)
[2016-11-28] MEDS: CHLORHEXIDINE 0.12% (ORAL KIT) 15 ML CUP MT SCH ×2 (09:05→21:46)
[2016-11-28] MEDS: FUROSEMIDE 20 MG TAB PO SCH ×2 (09:06→17:26)
[2016-11-28] MEDS: predniSONE 10 MG TAB PO SCH ×2 (09:06→21:45)
[2016-11-28] MEDS: ATENOLOL 50 MG TAB PO SCH ×2 (09:06→21:45)
--- NOTE | 2016-11-28 09:47 | HHI.CCPN ---
Subjective Remarks/Hospital Course This is an 81-year-old male who has had multiple readmissions over the past few months for a recurrent right-sided pleural effusion. He represents from his assisted facility with recurrent right-sided pleural effusion as well as hypoxia and somnolence. He was found to have significant hypercarbia and a PCO2 in the 90s. He was initially placed on BiPAP and admitted to the [facility]. He became more somnolent and his oxygen saturation began to decline. At this point a critical care medicine is consulted to evaluate and manage his hypercarbic respiratory failure. Because he is failed his trial of noninvasive positive pressure ventilation, we will move towards intubating the patient. I evaluated the patient and he is essentially unresponsive and obtunded and only minimally withdrawing to pain. I can obtain no additional history from the patient. Subjective: 11/09: Early this a.m. at approximately 06:30 the patient was noted to have a grand mal seizure lasting approximately 60 seconds followed by a small tonic- clonic seizure lasting 30 seconds involving the lower extremities. The patient received Ativan 2 mg with cessation of seizure activity. Stat CT of the brain without contrast was obtained showed no acute abnormality. EEG was obtained previously awaiting results. Prior to the event the patient was noted to be on a fentanyl infusion at approximately 250 mcg/h. The patient was noted to be a GCS 10T, squeezing my hand. 11/10: The patient was noted to have multiple seizures requiring interventions with IV Ativan. Described as tonic-clonic in nature with eyes rolled back in the head. Gross motor movement shaking 4 extremities. Today the patient was noted to have a positive growth and blood cultures. WBC count elevated. Ammonia level was drawn less than 10, lactate was noted to be 2.2 this morning. Pleural fluid culture negative growth to date. 11/11: On stimulation patient continues to have jerking movement of all extremities. EEG negative for seizures. Check MRI today. Dr. Kirkland is neurology. Remains on 2 mcg/min of Levophed 11/12: Per neurologist, patient had witnessed with tonic convulsions started over right arm and propagated to left UE and both LE with fluttering of the eyes and upward gaze.Loaded with Dilantin iv infusion and a maintenance dose of 100mg Q8h, Stat EEG negative for seizures. Its unclear to me whether it is seizure or myoclonus 11/13: No change in neuro status. Continues to have jerking movements off lower extremity when stimulated. EEG 2 have been negative for seizures. We'll hold sedation for neuro exam 11/14: On sedation hold opens eyes. Appears to follow commands and upper extremity. Still has some tremulousness of the extremities. Remains off pressors 11/15: Remains on Precedex intermittently following commands for RN. Placed on CPAP tolerating well. No evidence of myoclonus now 11/16: On 1.1 mcg/kg/hr of Precedex. No spontaneous eye opening but moves all extremities spontaneously. Not following commands will reduce Precedex, and start weaning trials 11/17: Mental status significantly improved patient following commands on Precedex. However chest tube was dislodged yesterday evening, now has bilateral pleural effusions left is more than right, appears large. Vent day 10 11/18: Off Precedex following commands upper extremities. But continues to fail C Pap trials due to tachypnea and low tidal volumes. Status post large-volume left thoracentesis yesterday with 1.2 L of old blood-tinged fluid removed. 11/19: Overnight agitated, requiring maximum dose Precedex 1.4 mcg per kg per hr and restraints. Currently heavily sedated. Chest x-ray shows increasing left effusion confirmed by ultrasound. We'll proceed with left pigtail catheter after consent. Continue to hold Coumadin due to hemorrhagic effusion 11/20: Left pigtail chest tube placed yesterday with a 30 mL output. Mentation improving now oriented follows commands. Requiring oxygen by nasal cannula. Slight increase in right effusion seen on chest x-ray 11/21: CT chest shows moderate left-sided pneumothorax. Eating continues to be slightly tachypneic but patient appears comfortable. Agitated requiring 4 point restraints. Also a liver enzymes are increasing most likely secondary to Dilantin. I will DC Dilantin and start him on Keppra 11/22 No acute events overnight. On Precedex drip. Afebrile. CXR this morning showed no evidence of PTX. 11/23 Patient is on Precedex 0.7 awake and alert on 2L oxygen with good sats. 11/24 Patient is off Precedex drip. Afebrile. Awake and alert. 11/25 Called by nurse as patient was diaphoretic, tachypneic, tachycardic, hypertensive minimally responsive and had O2 saturation in 80's he was subsequently intubated and placed on mechanical ventilation. CXR from earlier showed volume loss, consolidation RUL. 11/26 Patient is sedated with Diprivan and intubated. s/p bronch yesterday which showed mucous plugs on right CXR post bronch showed much improved aeration of right lung. Afebrile 11/27: Remains sedated with propofol, orally intubated on mechanical ventilation. 2 left-sided pigtail catheter is in place with posterior pigtail catheter having positive air leak. 11/28: Remains sedated, orally intubated on mechanical ventilation. One of the 2 pigtail catheters on the left side got dislodged in the morning by shift production supervisor RN. Patient did not drop O2 sats. Second pigtail catheter which is still in place does not have any air leak currently. Stat chest x-ray obtained by hi which shows small apical pneumothorax on the left. Peak airway pressures 14, patient is not having any issues with hypotension and desaturation. We'll repeat chest x-ray later today to follow-up on pneumothorax and decide regarding placing another chest tube. Objective Vital Signs Date Time Temp Pulse Resp B/P Pulse Ox O2 Delivery O2 Flow Rate FiO2 11/28/16 07:34 97 40 11/28/16 04:00 97.7 83 14 145/70 11/25/16 07:18 Nasal Cannula 4.00 Intake and Output 11/27/16 11/27/16 11/28/16 08:00 16:00 00:00 Intake Total 577 ml 92 ml 250 ml Output Total 755 ml 235 ml 310 ml Balance -178 ml -143 ml -60 ml Result Diagram: 11/27/16 0316 11/27/16 0316 Other Results Microbiology Date/Time Procedure Status Source Growth 11/26/16 11:30 Gram Stain - Final Complete Sputum Endotracheal 11/26/16 11:30 Sputum Culture - Final Complete Staphylococcus Aureus Imaging Last Impressions Chest X-Ray 11/25/16 0600 Signed Impressions: Service Date/Time: Friday, November 25, 2016 04:04 - CONCLUSION: Volume loss and consolidation involving the right lung suggesting collapse of the right lung. Cardiomegaly. Charbel Fuchs Jr., MD Chest CT 11/20/16 0000 Signed Impressions: Service Date/Time: October 09:37 - CONCLUSION: 1. Left pneumothorax without tension 2. Small loculated effusion medial right base 3. Pericardial effusion as above Jimi Chavez MD Liver Ultrasound 11/17/16 Signed Impressions: Service Date/Time: Thursday, November 17, 2016 15:58 - CONCLUSION: 1. Increased liver echogenicity characteristic of mild fatty infiltration or hepatocellular disease. 2. Trace free fluid in the abdomen. Pleural effusions. Mild gallbladder wall thickening. Chaka Campos MD Brain MRI 11/11/16 Signed Impressions: Service Date/Time: Friday, November 11, 2016 12:53 - CONCLUSION: 1. 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 2. 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 The others would be consistent with punctate, remote areas of hemorrhage suggesting possibility of amyloid. Eitan Mendoza MD Head CT 11/09/16 Signed Impressions: Service Date/Time: Wednesday, November 09, 2016 10:29 - CONCLUSION: Stable CT scan of the brain. Pradeep Rodriguez MD Chest Tube Insertion 11/08/16 Signed Impressions: Service Date/Time: Tuesday, November 08, 2016 12:46 - CONCLUSION: Uncomplicated right chest tube placement as above. 1500 cc of fluid removed and sent for culture. Post CT scan reveals a large. pleural rind . The right lung may well not reexpanded. A.m. chest x-ray is pending. Cultures pending. Kun Mendoza MD FACR CT Angiography 11/07/16 0000 Signed Impressions: Service Date/Time: October 20:40 - CONCLUSION: 1. No pulmonary embolus. 2. Marked cardiac enlargement, especially the atria. 3. Bilateral effusions and atelectasis about the same on the left and considerably worse on the right. Right pneumothorax seen previously has resolved. Dhruv Foster MD Objective Remarks HEENT/ Neuro: Sedated, orally intubated, Pallor present, no icterus, tongue/ mucosa moist Neck: No JVD Chest/Pulm: on mech vent, good air entry bilaterally, no wheezing or crackles. Scattered rhonchi. 1 pigtail catheters in left pleural cavity, no air leak noted. CVS: S1-S2 regular, no murmur GI/abdomen: soft, nontender, bowel sounds sluggish Extremities: warm bilaterally, no edema, hyperpigmentation noted bilaterally up to below knees. Date of Insertion: Nov 08, 2016 Side: Right Location: Internal, Jugular A/P Assessment and Plan Assessment: This is an 81-year-old male with history of prior recurrent right pleural effusions and COPD now presents with acute hypercarbic and hypoxic respiratory failure which has failed noninvasive positive pressure ventilation. Intubated and placed on mechanical ventilation. Covering COPD exacerbation, as well as healthcare associated pneumonia given his history of being on Levaquin at his assisted facility. He remains critically ill. Not sure that we will be able to get him through this hospitalization, and his recurrent respiratory failures are clearly making him more deconditioned every time he comes in the hospital. Despite this, daughter continues to request aggressive measures. Extubated 11/18/16 Plan by systems: Neurologic: Myoclonus-resolved Agitated delirium CO2 narcosis Metabolic encephalopathy Mild dementia -On Diprivan infusion for sedation. Use Ativan PRN for breakthrough seizures / myoclonus -EEG negative 11/10/15, 11/11/16 (moderate to severe encephalopathy, no seizure) -11/08 CT of the brain-no acute abnormality. 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 Question of amyloid -On Keppra 500 mg by mouth twice a day Respiratory: Acute hypercarbic and hypoxic respiratory failure-extubated - Reintubated 11/25 Recurrent right pleural effusion s/p chest tube placement-dislodged 11/17 New moderate left pneumothorax Right pneumothorax-resolved Large hemorrhagic left pleural effusion status post thoracentesis 11/17/16, pigtail chest tube 11/19/16 Healthcare associated pneumonia COPD exacerbation -Continue with vent support keep sat >92% -Bronchodilators, Mucomyst nebs -s/p Bronch 11/25: Mucous plugs on right CXR post bronch -much improved aeration of right lung Continue prednisone per Dr. Kitchen, -s/p anterior left anterior pigtail chest tube --Status post left thoracentesis 11/17/16 with 1.2 L of hemorrhagic fluid removed. CXR/US shows reaccumulation of left pleural fluid. pigtail chest tube placed 11/19/1611/08 S/P CT guided IR drainage of recurrent right posterior pleural effusion, unable to perform pleurodesis, accidentally dislodged Monitor CT drainage. Patient has one pigtail catheter on the left side which has no air leak currently. One of the pigtail catheters got dislodged on 11/28 in a.m. and chest x-ray obtained subsequently revealed small apical pneumothorax on the left. Joel to repeat chest x-ray later today and if pneumothorax is increasing in size well need another chest tube placed Cardiovascular: Severe pulmonary hypertension (PASP 85 on Echo 10/08/16, repeat echo 11/19/16 PASP was 47) A. fib RVR Hypertension Moderate to severe TR Continue with BP meds- (captopril and atenolol 11/14/16) --Monitor HR and BP keep MAP>65mmHg --Repeat 2d echo 11/19/16 PASP was 47 compared to 85 on 10/18/16. Renal: Hypernatremia- resolved Monitor renal function, I/O's, electrolytes replacement per protocol. -On Lasix 20mg BID, d/c IVF FEN/GI: Acute intravascular volume overload Acute protein calorie malnutritionsevere Elevated LFT's -Monitor LFT's...trending down -Start TF-Glucerna 1.5 with goal rate 45ml/hr Heme/ID: Healthcare associated pneumonia, staph aureus in sputum Leukocytosis- Afebrile -Patient s/p Cefepime and Zithromax 11/08-11/13 and Rocephin 11/15-11/18 ID is following. Rocephin resumed for MSSA pneumonia on 11/26 Check Sputum cx and UA with CX if indicated 11/08 blood -micrococcus 08/28 possible contaminant - Urine cultures-NGTD --Sputum cx 11/12/16 with staph aureus Endocrine: Hyperglycemia of critical illness -- SSI, medium scale, every 6 hours Prophylaxis: GI Prophylaxis Protonix 40 mg IV every 24 hours DVT Prophylaxis --SCDs On Coumadin monitor INR/PT. Coumadin placed on hold on 11/28 as pt may need chest tube placement. Will us lovenox 40mg daily for DVT prophylaxis in the meanwhile. Lines: Peripheral IVsx 2. central line Vital Palliative care is following CCT 30 mins Ralph Rogers MD Nov 28, 2016 09:46
[2016-11-28] MEDS: cefTRIAXone INJ 1,000 MG in SODIUM CHLORIDE 0.9% INJ 100 ML IV SCH (13:55)
--- NOTE | 2016-11-28 15:14 | RADRPT ---
EXAM DATE/TIME: 11/28/2016 12:50 [facility] COMPARISON: CHEST SINGLE AP, November 28, 2016, 6:34. INDICATIONS : Right pleural effusion. Follow-up pneumothorax. MEDICAL HISTORY : Cardiovascular disease. Congestive heart failure. Hypertension. SURGICAL HISTORY : None. ENCOUNTER: Subsequent ACUITY: 2 months PAIN SCORE: Non-responsive. LOCATION: Bilateral chest FINDINGS: Endotracheal tube tip is at the level of the laura. There is consolidation in the left lower lobe s imilar to prior. Patchy infiltrates in the right perihilar region is stable from prior. No evidence of pneumothorax. Multiple cardiac leads project of the chest. There is a left pigtail chest cathet er in place in the upper medial left chest. CONCLUSION: 1. No left pneumothorax seen on this semierect view of the chest. 2. Endotracheal tube tip is at the level of the laura and needs to be withdrawn at least 2.5 cm. Charbel Carpio MD on November 28, 2016 at 15:11 Board Certified Radiologist. This report was verified electronically.
--- NOTE | 2016-11-28 17:26 | HHI.HCPN ---
Reason for visit a. To assist with evaluation and management of symptoms including: pain, dyspnea, agitation b. To assist medical decision maker(s) with: better understanding of current medical conditions; weighing benefits/burdens of medical treatment options; making medical treatment decisions. . Subjective/Interval History Patient seen and assessed this morning in the [facility], room 500. He remains orotracheally intubated and sedated with Diprivan on mechanical ventilator. One of the patients to left-sided pigtail catheters was dislodged this morning, however patient's oxygen saturations remained stable. The second pigtail catheter is still in place. Chest x-ray showed probable small left apical pneumothorax, worsening consolidation in the left lung base and stable consolidation in the right, stable small effusions. No pneumothorax was seen in follow-up chest x-ray later today. Follow-up sputum culture on 11/26/16 remains positive for staph aureus. Micrococcus bacteremia on admission. Pleural fluid culture on 10/28/16 was negative; cytology negative for malignancy. Afebrile. Leukocytosis resolved, most recent WBC of 10.0. Patient remains on IV Rocephin, started 11/26/16. Patient's tube feeding was changed to Glucerna 1.5. Daughter stating the patient needs to be on [id number] tube feedings, stating the patient's tube feeding has "milk" listed on ingredient list. She believes this is the cause of the patient's respiratory failure. Dietary was consulted previously on 11/14/16. I spoke to dietary this morning. Tube feeding contains milk casein ( protein) only and that is why milk is listed on the label; It is considered a non-dairy product. Tube feeding is lactose free; Tube feeding contains soy protein; Currently neither [facility] or [facility] carry a vegan tube feeding so this is not an option. Discussed with nurse Beaulieu and patient's daughter. . Advance Directives Advance Directive Specifics Health Care Surrogate(s): == No written designation of health care surrogacy. == Patient , has on several occasions, verbally stated that he wants BOTH of his children to participate in health care decision making if he is incapacitated to do so. . Documented care wishes: Patient's daughter has indicated during prior hospitalization that her father completed some type of written advanced directives but has not provided copies of these documents to date. . Objective Vital Signs Date Time Temp Pulse Resp B/P Pulse Ox O2 Delivery O2 Flow Rate FiO2 11/28/16 14:29 94 40 11/28/16 14:00 66 11/28/16 12:00 98.0 65 16 144/63 99 11/28/16 12:00 65 11/28/16 12:00 40 11/28/16 10:58 93 40 11/28/16 10:00 64 11/28/16 08:00 40 11/28/16 08:00 68 11/28/16 08:00 98.7 68 16 137/61 96 11/28/16 07:34 97 40 11/28/16 04:00 97.7 83 14 145/70 98 11/28/16 04:00 83 11/28/16 04:00 45 11/28/16 03:13 99 40 11/28/16 02:00 72 11/28/16 00:59 97 40 11/28/16 00:00 97.6 76 14 121/59 97 11/28/16 00:00 76 11/28/16 00:00 45 11/27/16 23:16 97 40 11/27/16 22:36 97 40 11/27/16 22:00 73 11/27/16 20:45 97 40 11/27/16 20:00 76 11/27/16 20:00 97.6 76 12 119/58 96 11/27/16 20:00 45 11/27/16 18:00 77 Intake & Output 11/28/16 11/28/16 07:00 19:00 Intake Total 428 ml 212 ml Output Total 520 ml 625 ml Balance -92 ml -413 ml IV Total 178 ml 212 ml Other 250 ml Output Urine Total 500 ml 625 ml Chest Tube Drainage Total 20 ml # Bowel Movements 0 Physical Exam CONSTITUTIONAL/GENERAL: This is a frail, elderly male patient -currently intubated and sedated on mechanical ventilator TUBES/LINES/DRAINS: PIV x2, Vital, podus boots, pigtail chest tube, Vital catheter, soft restraints, ETT, OGT SKIN: Ecchymoses on upper extremities, multiple scabbed areas. HEAD: Atraumatic. Normocephalic. EYES: PERRLA ENT: Nose without bleeding or purulent drainage. NECK: Trachea midline. CARDIOVASCULAR: Regular rate and rhythm No murmurs, gallops, or rubs. Peripheral pulses symmetric. RESPIRATORY/CHEST: Intubated on mechanical ventilator, scattered rhonchi. Left- sided pigtail catheter 1 in left pleural cavity. GASTROINTESTINAL: Abdomen soft, non-tender, nondistended. GENITOURINARY: Without palpable bladder distension. Vital catheter . MUSCULOSKELETAL: Pulses strong, equal. No edema. Hyperpigmentation below knees bilaterally LYMPHATICS: No palpable cervical or supraclavicular adenopathy. NEUROLOGICAL: Sedated on Diprivan. PSYCHIATRIC: Unable to assess given patient's current condition. . Diagnostic Tests Laboratory Laboratory Tests Test 11/25/16 11/26/16 11/26/16 11/27/16 17:34 03:10 10:00 03:16 Blood Gas Puncture Site LT RADIAL RT RADIAL Blood Gas Patient Temperature 98.6 98.6 Blood Gas HCO3 36 mmol/L 33 mmol/L (22-26) (22-26) Blood Gas Base Excess 10.0 mmol/L 9.1 mmol/L (-2-2) (-2-2) Blood Gas Oxygen Saturation 97 % (90-100) 94 % (90-100) Arterial Blood pH 7.32 7.52 (7.380-7.420) (7.380-7.420) Arterial Blood Partial 72 mmHg (38-42) 40 mmHg (38-42) Pressure CO2 Arterial Blood Partial 129 mmHg 83 mmHg Pressure O2 (61-120) (61-120) Arterial Blood Oxygen Content 16.4 Vol % 14.3 Vol % (12.0-20.0) (12.0-20.0) Arterial Blood 1.2 % (0-4) 1.8 % (0-4) Carboxyhemoglobin Arterial Blood Methemoglobin 0.9 % (0-2) 1.4 % (0-2) Blood Gas Hemoglobin 11.9 G/DL 10.7 G/DL (12.0-16.0) (12.0-16.0) Oxygen Delivery Device VENTILATOR VENTILATOR Blood Gas Ventilator Setting [facility]/ 18/450/+5/IT1.0 Blood Gas Inspired Oxygen 100 % 35 % White Blood Count 14.2 TH/MM3 10.0 TH/MM3 (4.0-11.0) (4.0-11.0) Red Blood Count 3.40 MIL/MM3 3.28 MIL/MM3 (4.50-5.90) (4.50-5.90) Hemoglobin 11.3 GM/DL 10.8 GM/DL (13.0-17.0) (13.0-17.0) Hematocrit 33.2 % 32.1 % (39.0-51.0) (39.0-51.0) Mean Corpuscular Volume 97.7 FL 98.0 FL (80.0-100.0) (80.0-100.0) Mean Corpuscular Hemoglobin 33.4 PG 33.0 PG (27.0-34.0) (27.0-34.0) Mean Corpuscular Hemoglobin 34.2 % 33.7 % Concent (32.0-36.0) (32.0-36.0) Red Cell Distribution Width 15.0 % 15.0 % (11.6-17.2) (11.6-17.2) Platelet Count 127 TH/MM3 97 TH/MM3 (150-450) (150-450) Mean Platelet Volume 8.8 FL 8.7 FL (7.0-11.0) (7.0-11.0) Prothrombin Time 17.0 SEC 19.0 SEC (9.8-11.6) (9.8-11.6) Prothromb Time International 1.5 RATIO 1.7 RATIO Ratio Sodium Level 141 MEQ/L 143 MEQ/L (136-145) (136-145) Potassium Level 4.0 MEQ/L 3.6 MEQ/L (3.5-5.1) (3.5-5.1) Chloride Level 101 MEQ/L 103 MEQ/L (98-107) (98-107) Carbon Dioxide Level 35.6 MEQ/L 33.9 MEQ/L (21.0-32.0) (21.0-32.0) Anion Gap 4 MEQ/L (5-15) 6 MEQ/L (5-15) Blood Urea Nitrogen 15 MG/DL (7-18) 13 MG/DL (7-18) Creatinine 0.62 MG/DL 0.53 MG/DL (0.60-1.30) (0.60-1.30) Estimat Glomerular Filtration 125 ML/MIN 149 ML/MIN Rate (>89) (>89) Random Glucose 134 MG/DL 130 MG/DL (74-106) (74-106) Calcium Level 8.2 MG/DL 8.3 MG/DL (8.5-10.1) (8.5-10.1) Urine Color YELLOW (YELLW/STRAW) Urine Turbidity HAZY (CLEAR) Urine pH 5.0 (5.0-8.5) Urine Specific [place] 1.011 (1.002-1.035) Urine Protein NEG mg/dL (NEG-TRACE) Urine Glucose (UA) NEG mg/dL (NEG) Urine Ketones NEG mg/dL (NEG) Urine Occult Blood NEG (NEG) Urine Nitrite NEG (NEG) Urine Bilirubin NEG (NEG) Urine Urobilinogen LESS THAN 2.0 MG/DL (LESS THAN 2.0) Urine Leukocyte Esterase NEG (NEG) Urine RBC 11 /hpf (0-3) Urine WBC 4 /hpf (0-5) Urine Squamous Epithelial 1 /hpf (0-5) Cells Urine Amorphous Sediment FEW Urine Hyaline Casts 10 /lpf (RARE) Urine Mucus MANY /lpf (OCC) Microscopic Urinalysis Comment CATH-CULT NOT IND Neutrophils (%) (Auto) 84.3 % (16.0-70.0) Lymphocytes (%) (Auto) 8.0 % (9.0-44.0) Monocytes (%) (Auto) 7.1 % (0.0-8.0) Eosinophils (%) (Auto) 0.4 % (0.0-4.0) Basophils (%) (Auto) 0.2 % (0.0-2.0) Neutrophils # (Auto) 8.4 TH/MM3 (1.8-7.7) Lymphocytes # (Auto) 0.8 TH/MM3 (1.0-4.8) Monocytes # (Auto) 0.7 TH/MM3 (0-0.9) Eosinophils # (Auto) 0.0 TH/MM3 (0-0.4) Basophils # (Auto) 0.0 TH/MM3 (0-0.2) CBC Comment AUTO DIFF Differential Comment AUTO DIFF CONFIRMED Platelet Estimate LOW (NORMAL) Platelet Morphology Comment NORMAL (NORMAL) Phosphorus Level 2.6 MG/DL (2.5-4.9) Magnesium Level 1.7 MG/DL (1.5-2.5) Total Bilirubin 0.6 MG/DL (0.2-1.0) Aspartate Amino Transf 26 U/L (15-37) (AST/SGOT) Alanine Aminotransferase 52 U/L (12-78) (ALT/SGPT) Alkaline Phosphatase 137 U/L (45-117) Total Protein 5.1 GM/DL (6.4-8.2) Albumin 1.8 GM/DL (3.4-5.0) Test 11/28/16 04:26 Prothrombin Time 20.7 SEC (9.8-11.6) Prothromb Time International 1.8 RATIO Ratio . Result Diagram: 11/27/16 0316 11/27/16 0316 Microbiology Microbiology Date/Time Procedure Status Source Growth 11/26/16 11:30 Gram Stain - Final Complete Sputum Endotracheal 11/26/16 11:30 Sputum Culture - Final Complete Staphylococcus Aureus . Imaging Last 72 hours Impressions Chest X-Ray 11/28/16 1200 Signed Impressions: Service Date/Time: November 12:50 - CONCLUSION: 1. No left pneumothorax seen on this semierect view of the chest. 2. Endotracheal tube tip is at the level of the laura and needs to be withdrawn at least 2.5 cm. Charbel Carpio MD Chest X-Ray 11/28/16 0000 Signed Impressions: Service Date/Time: November 06:34 - CONCLUSION: 1. Probable small left apical pneumothorax. 2. Worsening consolidation the left lung base. 3. Stable consolidation right lung base. 4. Stable small effusions. Charbel Fuchs Jr., MD Chest X-Ray 11/27/16 0600 Signed Impressions: Service Date/Time: Sunday, November 27, 2016 03:22 - CONCLUSION: Worsening right lower lobe infiltrate. Charbel Fuchs Jr., MD . Procedures 11/08/16: Intubation 11/08/16: Right IJ central line placement 11/08/16: Right chest tube placement with thoracentesis 11/15/16: Left arterial line removed 11/17/16: Chest tube removed 11/17/16: Thoracentesis. 11/18/16: Extubation 11/19/16: Left pigtail chest tube placement 11/25/16: Bronchoscopy 11/25/16: Reintubation 11/25/16: OGT 11/25/16: Second chest tube placed in left chest wall . . Assessment and Plan Disease Oriented Problem List: (1) Pleural effusion (2) Congestive heart failure (3) Chronic atrial fibrillation (4) Pneumothorax (5) Hypertension (6) Acute respiratory failure with hypoxia and hypercapnia (7) COPD (chronic obstructive pulmonary disease) (8) Pneumonia (9) Protein-calorie malnutrition, severe Symptom Scale: (1) Dyspnea 0-10 Scale: Unable to quantify Comment: Follow-up sputum culture on 11/26/16 remains positive staph aureus - patient on IV Rocephin. Pleural fluid culture negative; cytology negative for malignancy. Patient was reintubated on 11/25/16. Imaging earlier in the day showed volume loss and consolidation involving the right lung. Follow-up chest x-ray status post bronchoscopy for mucous plug showed improved aeration of the right lung. Second chest tube placed and left chest wall. 11/28/16: Patient remains orotracheally intubated and sedated on mechanical ventilator. One of the patients to left-sided pigtail catheters was dislodged this morning, however patient's oxygen saturations remained stable. The second pigtail catheter is still in place. Chest x-ray showed probable small left apical pneumothorax, worsening consolidation in the left lung base and stable consolidation in the right, stable small effusions. No pneumothorax was seen in follow-up chest x-ray later today. . (2) Pain 0-10 Scale: Unable to quantify Comment: Probable causes of pain include dyspnea, infection, invasiveness lines , skin breakdown, immobility, bedbound status etc. Titrating Precedex drip as needed. PRN acetaminophen is available for pain/fever as well. (3) Agitation Comment: IV Haldol is ordered q4 hours PRN for agitation; doses administered in the past 24 hours. If Haldol is ineffective in managing patient's agitation, low dose lorazepam (1mg IV q4 hours PRN) is recommended as adjunctive therapy. Pertinent Non-Medical Issues Psychosocial: Patient is originally from [facility] but has lived in [place] since . 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 He was and , many years ago. He has 2 children. His daughter, Raissa daniels, lives locally and is very involved in the patient's care. The patient also has a son living in [place], but reportedly has not seen him in the last 5 years. The patient does keep in touch. The patient lives alone. His daughter lives a few blocks away and assist the patient with shopping and meal preparation. Spiritual: The patient comes from Hinduism tradition. Per his daughter, cheondoism and spirituality have not been an important part of his life. Legal: Patient is currently incapacitated and unable to participate in clarification of medical treatment goals. It is unclear at this time if the patient will ever became this capacity. Per [place] statutes, in the absence of written advanced directives healthcare proxy decision making would fall to the patient's 2 adult children. Patient, has on several occasions during previous hospitalization, verbally stated that he wanted BOTH of his children to participate in health care decision making if he is incapacitated to do so. Ethical issues impacting care: No known ethical issues impacting care at this time. Important Contacts Raissa Perla (daughter) [phone] Anselmo Duncan (son) [phone] Aneesh Walls (friend) [phone] . Prognosis This is an 81-year-old male with an extensive history (decades) of congestive heart failure complicated by underlying COPD, history of alcohol abuse. Patient has been declining since March 2016 particularly with recurrent right pleural effusions. He has required > 5 thoracenteses since that time. He has been living at [facility] since his [facility] discharge from [facility] on 10/20/16. There is known ischemic heart disease and failure may be primarily due to valvular heart disease. There is severe tricuspid regurgitation. Patient There is a reasonable chance he will continue to improve well enough to survive the hospitalization. Based on his history of the last few months, long-term prognosis is not good. Life expectancy is probably in the order of months. Patient would certainly be eligible for hospice services at such time as his goals become mostly comfort oriented. Code Status: Full Code Plan * FULL CODE * Decision making: Patient is currently incapacitated and unable to participate in clarification of medical treatment goals. It is unclear at this time if the patient will ever became this capacity. Per [place] statutes, in the absence of written advanced directives healthcare proxy decision making would fall to the patient's 2 adult children. Patient, has on several occasions during previous hospitalization, verbally stated that he wanted BOTH of his children to participate in health care decision making if he is incapacitated to do so. * GOALS: Aggressive goals * Symptom managementdyspnea: = Follow-up sputum culture on 11/26/16 remains positive staph aureus - patient on IV Rocephin. Pleural fluid culture negative; cytology negative for malignancy. = Patient was reintubated on 11/25/16. Imaging earlier in the day showed volume loss and consolidation involving the right lung. Follow-up chest x-ray status post bronchoscopy for mucous plug showed improved aeration of the right lung. Second chest tube placed and left chest wall. = 11/28/16: Patient remains orotracheally intubated and sedated on mechanical ventilator. One of the patients to left-sided pigtail catheters was dislodged this morning, however patient's oxygen saturations remained stable. The second pigtail catheter is still in place. Chest x-ray showed probable small left apical pneumothorax, worsening consolidation in the left lung base and stable consolidation in the right, stable small effusions. No pneumothorax was seen in follow-up chest x-ray later today. * Symptom managementpain: Probable causes of pain include dyspnea, infection, invasiveness lines, skin breakdown, immobility, bedbound status etc. PRN acetaminophen is available for pain/fever as well. Palliative care will monitor for s/s nonverbal pain and make recommendations as indicated. * Symptom management- agitation: IV Haldol is ordered q4 hours PRN for agitation ; doses administered in the past 24 hours. If Haldol is ineffective in managing patient's agitation, low dose lorazepam (1mg IV q4 hours PRN) is recommended as adjunctive therapy. * Patient's tube feeding was changed to Glucerna 1.5. Daughter stating the patient needs to be on [id number] tube feedings, stating the patient's tube feeding has "milk" listed on ingredient list. She believes this is the cause of the patient's respiratory failure. Dietary was consulted previously on 11/14/16. I spoke to dietary this morning. Tube feeding contains milk casein ( protein) only and that is why milk is listed on the label; It is considered a non-dairy product. Tube feeding is lactose free; Tube feeding contains soy protein; Currently neither [facility] nor [facility] carry a vegan tube feeding so this is not an option. Discussed with nurse Beaulieu and patient's daughter has been made aware. * Attempted to reach patient's son, Anselmo Duncan, at [phone]. A message was left on his voicemail with palliative care contact information. Several attempts have been made to contact the patient's son previously, have not yet received a return phone call. * Palliative care will continue to follow this patient throughout his hospitalization to establish trust, assist with symptom management and clarification of medical treatment goals. . Attestation To help prompt me to consider important information that might be impacting today's encounter and assessment, information from prior notes written by myself or my colleagues may have been "brought forward" into today's note. My signature on this note, however, is an attestation that I personally performed the exam, history, and/or decision-making noted today, and, unless otherwise indicated, the interactions with patient, family, and staff as well as the review of records all occurred today. I also attest that the listed assessment and stated plan reflect my best clinical judgment today based on the combination of historical information, prior notes, and today's exam/ interactions. When time spent is documented, it refers only to time spent today by the signer, or if indicated, combined time spent today by collaborating physician/nurse practitioner. . Sujatha Elliott Nov 28, 2016 17:26
[2016-11-29] VITALS (19 sets, daily range): BP systolic 111–145; BP diastolic 54–64; PULSE 66–78; RESP 14–18; TEMP 96.1–99.1; O2SAT 93–99
[2016-11-29] MEDS: RESP: ACETYLCYSTEINE 10% 30 ML NEB NEB SCH ×3 (03:19→14:01)
[2016-11-29] MEDS: RESP: ALBUTEROL 2.5 MG/IPRATROPIUM 0.5 MG NEB (SCH) NEB ×3 (03:20→14:02)
[2016-11-29] MEDS: PROPOFOL 1000 MG/100 ML INJ 100 ML IV SCH ×3 (05:52→21:50)
[2016-11-29] MEDS: INSULIN NovoLIN REGULAR SUPPLEMENTAL SCALE SQ SCH ×4 (06:00→17:50)
[2016-11-29 06:02] LABS: AUTOMATED NEUTROPHIL # 4.5 TH/MM3 (1.8-7.7); BASOPHIL % 0.5 % (0.0-2.0); EOSINOPHIL % 0.7 % (0.0-4.0); HEMATOCRIT 33.4 % (39.0-51.0); HEMO FLAGS DIFF FINAL; LYMPHOCYTE # 0.8 TH/MM3 (1.0-4.8); MEAN CELL VOLUME 97.6 FL (80.0-100.0); MEAN CORPUSCULAR HEMOGLOBIN 33.2 PG (27.0-34.0); NEUT % 77.8 % (16.0-70.0); PLATELET COUNT 115 TH/MM3 (150-450); RED BLOOD COUNT 3.43 MIL/MM3 (4.50-5.90); RED CELL DISTRIBUTION WIDTH 14.9 % (11.6-17.2); WHITE BLOOD COUNT 5.8 TH/MM3 (4.0-11.0)
[2016-11-29 06:04] LABS: INTERNATIONAL NORMALIZED RATIO 1.8 RATIO; PROTHROMBIN TIME - PATIENT 20.2 SEC (9.8-11.6)
[2016-11-29 06:23] LABS: ALKALINE PHOSPHATASE 152 U/L (45-117); TOTAL BILIRUBIN ADULT 0.5 MG/DL (0.2-1.0)
[2016-11-29 06:24] LABS: ALT (GPT) 51 U/L (12-78); ANION GAP 5 MEQ/L (5-15); AST (GOT) 50 U/L (15-37); BICARBONATE 35.6 MEQ/L (21.0-32.0); BLOOD UREA NITROGEN 13 MG/DL (7-18); CHLORIDE 101 MEQ/L (98-107); GLOMERULAR FILTRATION RATE 146 ML/MIN (>89); SODIUM (NA) 142 MEQ/L (136-145)
--- NOTE | 2016-11-29 07:30 | HHI.CCPN ---
Subjective Remarks/Hospital Course This is an 81-year-old male who has had multiple readmissions over the past few months for a recurrent right-sided pleural effusion. [facility] with recurrent right-sided pleural effusion as well as hypoxia and somnolence. He was found to have significant hypercarbia and a PCO2 in the 90s. He was initially placed on BiPAP and admitted to the [facility]. He became more somnolent and his oxygen saturation began to decline. At this point a critical care medicine is consulted to evaluate and manage his hypercarbic respiratory failure. Because he is failed his trial of noninvasive positive pressure ventilation, we will move towards intubating the patient. I evaluated the patient and he is essentially unresponsive and obtunded and only minimally withdrawing to pain. I can obtain no additional history from the patient. Subjective: 11/09: Early this a.m. at approximately 06:30 the patient was noted to have a grand mal seizure lasting approximately 60 seconds followed by a small tonic- clonic seizure lasting 30 seconds involving the lower extremities. The patient received Ativan 2 mg with cessation of seizure activity. Stat CT of the brain without contrast was obtained showed no acute abnormality. EEG was obtained previously awaiting results. Prior to the event the patient was noted to be on a fentanyl infusion at approximately 250 mcg/h. The patient was noted to be a GCS 10T, squeezing my hand. 11/10: The patient was noted to have multiple seizures requiring interventions with IV Ativan. Described as tonic-clonic in nature with eyes rolled back in the head. Gross motor movement shaking 4 extremities. Today the patient was noted to have a positive growth and blood cultures. WBC count elevated. Ammonia level was drawn less than 10, lactate was noted to be 2.2 this morning. Pleural fluid culture negative growth to date. 11/11: On stimulation patient continues to have jerking movement of all extremities. EEG negative for seizures. Check MRI today. Dr. Kirkland is neurology. Remains on 2 mcg/min of Levophed 11/12: Per neurologist, patient had witnessed with tonic convulsions started over right arm and propagated to left UE and both LE with fluttering of the eyes and upward gaze.Loaded with Dilantin iv infusion and a maintenance dose of 100mg Q8h, Stat EEG negative for seizures. Its unclear to me whether it is seizure or myoclonus 11/13: No change in neuro status. Continues to have jerking movements off lower extremity when stimulated. EEG 2 have been negative for seizures. We'll hold sedation for neuro exam 11/14: On sedation hold opens eyes. Appears to follow commands and upper extremity. Still has some tremulousness of the extremities. Remains off pressors 11/15: Remains on Precedex intermittently following commands for RN. Placed on CPAP tolerating well. No evidence of myoclonus now 11/16: On 1.1 mcg/kg/hr of Precedex. No spontaneous eye opening but moves all extremities spontaneously. Not following commands will reduce Precedex, and start weaning trials 11/17: Mental status significantly improved patient following commands on Precedex. However chest tube was dislodged yesterday evening, now has bilateral pleural effusions left is more than right, appears large. Vent day 10 11/18: Off Precedex following commands upper extremities. But continues to fail C Pap trials due to tachypnea and low tidal volumes. Status post large-volume left thoracentesis yesterday with 1.2 L of old blood-tinged fluid removed. 11/19: Overnight agitated, requiring maximum dose Precedex 1.4 mcg per kg per hr and restraints. Currently heavily sedated. Chest x-ray shows increasing left effusion confirmed by ultrasound. We'll proceed with left pigtail catheter after consent. Continue to hold Coumadin due to hemorrhagic effusion 11/20: Left pigtail chest tube placed yesterday with a 30 mL output. Mentation improving now oriented follows commands. Requiring oxygen by nasal cannula. Slight increase in right effusion seen on chest x-ray 11/21: CT chest shows moderate left-sided pneumothorax. Eating continues to be slightly tachypneic but patient appears comfortable. Agitated requiring 4 point restraints. Also a liver enzymes are increasing most likely secondary to Dilantin. I will DC Dilantin and start him on Keppra 11/22 No acute events overnight. On Precedex drip. Afebrile. CXR this morning showed no evidence of PTX. 11/23 Patient is on Precedex 0.7 awake and alert on 2L oxygen with good sats. 11/24 Patient is off Precedex drip. Afebrile. Awake and alert. 11/25 Called by nurse as patient was diaphoretic, tachypneic, tachycardic, hypertensive minimally responsive and had O2 saturation in 80's he was subsequently intubated and placed on mechanical ventilation. CXR from earlier showed volume loss, consolidation RUL. 11/26 Patient is sedated with Diprivan and intubated. s/p bronch yesterday which showed mucous plugs on right CXR post bronch showed much improved aeration of right lung. Afebrile 11/27: Remains sedated with propofol, orally intubated on mechanical ventilation. 2 left-sided pigtail catheter is in place with posterior pigtail catheter having positive air leak. 11/28: Remains sedated, orally intubated on mechanical ventilation. One of the 2 pigtail catheters on the left side got dislodged in the morning by cnc machinist 2nd shift RN. Patient did not drop O2 sats. Second pigtail catheter which is still in place does not have any air leak currently. Stat chest x-ray obtained by ga which shows small apical pneumothorax on the left. Peak airway pressures 14, patient is not having any issues with hypotension and desaturation. We'll repeat chest x-ray later today to follow-up on pneumothorax and decide regarding placing another chest tube. 11/29 Patient is sedated with Diprivan and intubated. Afebrile. Objective Vital Signs Date Time Temp Pulse Resp B/P Pulse Ox O2 Delivery O2 Flow Rate FiO2 11/29/16 06:00 73 11/29/16 04:11 95 40 11/29/16 04:00 97.9 18 127/56 11/25/16 07:18 Nasal Cannula 4.00 Intake and Output 11/28/16 11/28/16 11/29/16 08:00 16:00 00:00 Intake Total 178 ml 212 ml 607 ml Output Total 210 ml 625 ml 300 ml Balance -32 ml -413 ml 307 ml Result Diagram: 11/29/16 0514 11/29/16 0514 Other Results Laboratory Tests Test 11/29/16 05:14 White Blood Count 5.8 TH/MM3 Red Blood Count 3.43 MIL/MM3 Hemoglobin 11.4 GM/DL Hematocrit 33.4 % Mean Corpuscular Volume 97.6 FL Mean Corpuscular Hemoglobin 33.2 PG Mean Corpuscular Hemoglobin 34.0 % Concent Red Cell Distribution Width 14.9 % Platelet Count 115 TH/MM3 Mean Platelet Volume 9.3 FL Neutrophils (%) (Auto) 77.8 % Lymphocytes (%) (Auto) 13.0 % Monocytes (%) (Auto) 8.0 % Eosinophils (%) (Auto) 0.7 % Basophils (%) (Auto) 0.5 % Neutrophils # (Auto) 4.5 TH/MM3 Lymphocytes # (Auto) 0.8 TH/MM3 Monocytes # (Auto) 0.5 TH/MM3 Eosinophils # (Auto) 0.0 TH/MM3 Basophils # (Auto) 0.0 TH/MM3 CBC Comment DIFF FINAL Differential Comment Prothrombin Time 20.2 SEC Prothromb Time International 1.8 RATIO Ratio Sodium Level 142 MEQ/L Potassium Level 4.0 MEQ/L Chloride Level 101 MEQ/L Carbon Dioxide Level 35.6 MEQ/L Anion Gap 5 MEQ/L Blood Urea Nitrogen 13 MG/DL Creatinine 0.54 MG/DL Estimat Glomerular Filtration 146 ML/MIN Rate Random Glucose 103 MG/DL Calcium Level 8.4 MG/DL Total Bilirubin 0.5 MG/DL Aspartate Amino Transf 50 U/L (AST/SGOT) Alanine Aminotransferase 51 U/L (ALT/SGPT) Alkaline Phosphatase 152 U/L Total Protein 5.4 GM/DL Albumin 1.9 GM/DL Imaging Last Impressions Upper Extremity Ultrasound 11/29/16 0000 Signed Impressions: Service Date/Time: Tuesday, November 29, 2016 11:59 - CONCLUSION: Thrombus as described above. Clot in the deep venous system is accommodation of occlusive and nonocclusive clot. Kun Mendoza MD FACR Chest X-Ray 11/29/16 0000 Signed Impressions: Service Date/Time: Tuesday, November 29, 2016 07:29 - CONCLUSION: No change in bilateral pulmonary opacity. No evidence of pneumothorax. Endotracheal tube tip now 3 cm above the laura. Mathew Guerrero MD Chest CT 11/20/16 0000 Signed Impressions: Service Date/Time: October 09:37 - CONCLUSION: 1. Left pneumothorax without tension 2. Small loculated effusion medial right base 3. Pericardial effusion as above Jimi Chavez MD Liver Ultrasound 11/17/16 0000 Signed Impressions: Service Date/Time: Thursday, November 17, 2016 15:58 - CONCLUSION: 1. Increased liver echogenicity characteristic of mild fatty infiltration or hepatocellular disease. 2. Trace free fluid in the abdomen. Pleural effusions. Mild gallbladder wall thickening. Chaka Campos MD Brain MRI 11/11/16 0000 Signed Impressions: Service Date/Time: Friday, November 11, 2016 12:53 - CONCLUSION: 1. 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 2. 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 The others would be consistent with punctate, remote areas of hemorrhage suggesting possibility of amyloid. Eitan Mendoza MD Head CT 11/09/16 0000 Signed Impressions: Service Date/Time: Wednesday, November 09, 2016 10:29 - CONCLUSION: Stable CT scan of the brain. Pradeep Rodriguez MD Chest Tube Insertion 11/08/16 0000 Signed Impressions: Service Date/Time: Tuesday, November 08, 2016 12:46 - CONCLUSION: Uncomplicated right chest tube placement as above. 1500 cc of fluid removed and sent for culture. Post CT scan reveals a large. pleural rind . The right lung may well not reexpanded. A.m. chest x-ray is pending. Cultures pending. Kun Mendoza MD FACR CT Angiography 11/07/16 0000 Signed Impressions: Service Date/Time: October 20:40 - CONCLUSION: 1. No pulmonary embolus. 2. Marked cardiac enlargement, especially the atria. 3. Bilateral effusions and atelectasis about the same on the left and considerably worse on the right. Right pneumothorax seen previously has resolved. Dhruv Foster MD Objective Remarks GENERAL: Patient is 81yo intubated and sedated. SKIN: Warm and dry. HEAD: Normocephalic. EYES: No scleral icterus. No injection or drainage. NECK: Supple, trachea midline. No JVD or lymphadenopathy. Orally intubated CARDIOVASCULAR: Regular rate and rhythm without murmurs, gallops, or rubs. RESPIRATORY: Breath sounds equal bilaterally. No accessory muscle use. GASTROINTESTINAL: Abdomen soft, non-tender, nondistended. MUSCULOSKELETAL: No cyanosis, + edema LUE. Neuro: Sedated, intubated Date of Insertion: Nov 08, 2016 Side: Right Location: Internal, Jugular A/P Assessment and Plan Assessment: This is an 81-year-old male with history of prior recurrent right pleural effusions and COPD now presents with acute hypercarbic and hypoxic respiratory failure which has failed noninvasive positive pressure ventilation. Intubated and placed on mechanical ventilation. Covering COPD exacerbation, as well as healthcare associated pneumonia given his history of being on [facility]quin at his [facility]. He remains critically ill. Not sure that we will be able to get him through this hospitalization, and his recurrent respiratory failures are clearly making him more deconditioned every time he comes in the hospital. Despite this, daughter continues to request aggressive measures. Extubated 11/18/16 Plan by systems: Neurologic: Myoclonus-resolved Agitated delirium CO2 narcosis Metabolic encephalopathy Mild dementia -On Diprivan infusion for sedation. Use Ativan PRN for breakthrough seizures / myoclonus -EEG negative 11/10/15, 11/11/16 (moderate to severe encephalopathy, no seizure) -11/08 CT of the brain-no acute abnormality. 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 Question of amyloid -On Keppra 500 mg by mouth twice a day Respiratory: Acute hypercarbic and hypoxic respiratory failure-extubated - Reintubated 11/25 Recurrent right pleural effusion s/p chest tube placement-dislodged 11/17 New moderate left pneumothorax Right pneumothorax-resolved Large hemorrhagic left pleural effusion status post thoracentesis 11/17/16, pigtail chest tube 11/19/16 Healthcare associated pneumonia COPD exacerbation -Continue with vent support keep sat >92% -Bronchodilators, Mucomyst nebs -s/p Bronch 11/25: Mucous plugs on right CXR post bronch -much improved aeration of right lung Continue prednisone per Dr. Kitchen, -s/p anterior left anterior pigtail chest tube --Status post left thoracentesis 11/17/16 with 1.2 L of hemorrhagic fluid removed. CXR/US shows reaccumulation of left pleural fluid. pigtail chest tube placed 11/19/1611/08 S/P CT guided IR drainage of recurrent right posterior pleural effusion, unable to perform pleurodesis, accidentally dislodged Monitor CT drainage. Patient has one pigtail catheter on the left side which has no air leak currently. One of the pigtail catheters got dislodged on 11/28 in a.m. -Will consult surgery for trach Cardiovascular: Severe pulmonary hypertension (PASP 85 on Echo 10/08/16, repeat echo 11/19/16 PASP was 47) A. fib RVR Hypertension Moderate to severe TR Continue with BP meds- (captopril and atenolol 11/14/16) --Monitor HR and BP keep MAP>65mmHg --Repeat 2d echo 11/19/16 PASP was 47 compared to 85 on 10/18/16. Renal: Hypernatremia- resolved Monitor renal function, I/O's, electrolytes replacement per protocol. -On Lasix 20mg BID, FEN/GI: Acute intravascular volume overload Acute protein calorie malnutritionsevere Elevated LFT's -Monitor LFT's...trending down -Resume TF-Glucerna 1.5 with goal rate 45ml/hr GI eval for PEG tube placement Heme/ID: Healthcare associated pneumonia, staph aureus in sputum Leukocytosis- Afebrile -Patient s/p Cefepime and Zithromax 11/08-11/13 and Rocephin 11/15-11/18 ID is following. Rocephin resumed for MSSA pneumonia on 11/26 -11/26 Sputum cx : Staph Aureus 11/08 blood -micrococcus 08/28 possible contaminant - Urine cultures-NGTD --Sputum cx 11/12/16 with staph aureus Endocrine: Hyperglycemia of critical illness -- SSI, medium scale, every 6 hours Prophylaxis: GI Prophylaxis Protonix 40 mg IV every 24 hours DVT Prophylaxis --SCDs Doppler US LUE: Occlusive and non-occlusive clot in cephalic vein, scattered clot in brachial and axillary vein Will start on heparin drip, Coumadin was placed on hold yesterday. Lines: Peripheral IVsx 2. central line Vital Palliative care is following CCT 30 mins Otoniel Dominguez MD Nov 29, 2016 07:30
--- NOTE | 2016-11-29 07:57 | RADRPT ---
EXAM DATE/TIME: 11/29/2016 07:29 [facility] COMPARISON: CHEST SINGLE AP, November 28, 2016, 12:50. INDICATIONS : Evaluate lung status. MEDICAL HISTORY : Hypertension. Cardiovascular disease. Congestive heart failure. SURGICAL HISTORY : None. ENCOUNTER: Initial ACUITY: 1 day PAIN SCORE: Non-responsive. LOCATION: Bilateral chest FINDINGS: Endotracheal tube, nasogastric tube, and left-sided chest tube remain in place. Endotracheal tube tip is now 3 cm proximal to the laura. Bilateral lower lung zone opacity unchanged. Cardiac silhouette enlargement again seen. No evidence of pneumothorax. CONCLUSION: No change in bilateral pulmonary opacity. No evidence of pneumothorax. Endotracheal t ube tip now 3 cm above the laura. Mathew Guerrero MD on November 29, 2016 at 7:54 Board Certified Radiologist. This report was verified electronically.
[2016-11-29] MEDS: SODIUM CHLORIDE 0.9% FLUSH 5 ML FLUSH IVF SCH (08:11)
[2016-11-29] MEDS: ATENOLOL 50 MG TAB PO SCH ×2 (08:11→21:32)
[2016-11-29] MEDS: SODIUM CHLORIDE 0.9% FLUSH 5 ML FLUSH FLUSH SCH ×2 (08:11→21:00)
[2016-11-29] MEDS: levETIRAcetam 500 MG TAB PO SCH ×2 (08:12→21:32)
[2016-11-29] MEDS: CHLORHEXIDINE 0.12% (ORAL KIT) 15 ML CUP MT SCH ×2 (08:12→21:33)
[2016-11-29] MEDS: predniSONE 10 MG TAB PO SCH ×2 (08:12→21:32)
[2016-11-29] MEDS: FUROSEMIDE 20 MG TAB PO SCH ×2 (08:12→17:50)
--- NOTE | 2016-11-29 11:55 | HHI.PR ---
Subjective Remarks Chest tube was out. No significant Pneumo noted. He is on vent support, A/C rate12, On O2 at 40 %. CXR is better. Objective Vital Signs Date Time Temp Pulse Resp B/P Pulse Ox O2 Delivery O2 Flow Rate FiO2 11/29/16 08:18 97 40 11/29/16 08:00 98.1 68 16 145/64 97 11/29/16 08:00 40 11/29/16 08:00 68 11/29/16 06:00 73 11/29/16 04:11 95 40 11/29/16 04:00 97.9 73 18 127/56 95 11/29/16 04:00 78 11/29/16 04:00 40 11/29/16 02:00 40 11/29/16 02:00 68 11/29/16 00:01 93 40 11/29/16 00:00 68 11/29/16 00:00 66 11/29/16 00:00 98.8 66 18 133/64 94 11/29/16 00:00 40 11/28/16 22:00 63 11/28/16 20:00 97.9 63 14 128/60 97 11/28/16 20:00 63 11/28/16 20:00 40 11/28/16 19:37 99 40 11/28/16 18:00 66 11/28/16 16:00 40 11/28/16 16:00 99.1 67 14 140/59 97 11/28/16 16:00 67 11/28/16 14:29 94 40 11/28/16 14:00 66 11/28/16 12:00 98.0 65 16 144/63 99 11/28/16 12:00 65 11/28/16 12:00 40 I/O 11/28/16 11/28/16 11/28/16 11/29/16 11/29/16 11/29/16 07:00 15:00 23:00 07:00 15:00 23:00 Intake Total 178 ml 212 ml 940 ml Output Total 210 ml 625 ml 550 ml Balance -32 ml -413 ml 390 ml IV Total 78 ml 212 ml 552 ml Tube Feeding 388 ml Other 100 ml Output Urine Total 200 ml 625 ml 550 ml Chest Tube Drainage Total 10 ml # Bowel Movements 0 Result Diagram: 11/29/16 0511/29/16513 Objective Remarks GENERAL: Elderly male awake and anxious . HEENT: Pupils are equal and react to light. Oral mucosa, nasal mucosa normal. NECK: Supple. JVP not raised. CHEST: Occ wheeze. Decreased breath sounds at bases. CARDIOVASCULAR: S1, S2 normal. ABDOMEN: Benign.No mass. EXTREMITIES: 1 + edema. Neuro, Weak Legs Sedated. Assessment and Plan Assessment and Plan IMPRESSION 1. Ventilator dependent respiratory failure.Resolved 2. Pleural effusions status post chest tube placement. 3. Congestive heart failure. 4. Atrial fibrillation. 5. Pulmonary HTN Plan : 1. Vent support and FIo2 40 % 2. Nebs qid , duoneb. 3. CPAP today and check NIF,FVC. 4. Chest tube to drainage 5. CXR ,BMP, CBC in am. 6. Tube feeds at 40 CC 7. IS at bedside qid 8. Prednisone 10 mg bid 9. Hold sedation Paulo Rooney MD Nov 29, 2016 11:55
--- NOTE | 2016-11-29 13:14 | RADRPT ---
EXAM DATE/TIME: 11/29/2016 11:59 [facility] COMPARISON: No previous studies available for comparison. INDICATIONS : Left arm swelling. MEDICAL HISTORY : Hypercholesterolemia. Hypertension. Chronic obstructive pulmonary disease. Hearing loss. Cerebrovasc ular accident. Congestive heart failure. Anticoagulant therapy, Warfarin. Afib. SURGICAL HISTORY : Right knee surgery. Thoracentesis. ENCOUNTER: Initial ACUITY: 1 day PAIN SCORE: Non-responsive LOCATION: Left arm. FINDINGS: Occlusive and nonocclusive clot is seen in the cephalic vein. Scattered clot is seen in the brachial vein and axillary vein. CONCLUSION: Thrombus as described above. Clot in the deep venous system is accommodation of occlusive and nonocc lusive clot. Kun Mendoza MD FACR on November 29, 2016 at 13:11 Board Certified Radiologist. This report was verified electronically.
[2016-11-29] MEDS: cefTRIAXone INJ 1,000 MG in SODIUM CHLORIDE 0.9% INJ 100 ML IV SCH (13:36)
[2016-11-29 15:13] LABS: HEMATOCRIT 31.6 % (39.0-51.0); MEAN CELL VOLUME 96.8 FL (80.0-100.0); MEAN CORPUSCULAR HEMOGLOBIN 33.5 PG (27.0-34.0); MEAN CORPUSCULAR HGB CONC 34.6 % (32.0-36.0); PLATELET COUNT 103 TH/MM3 (150-450); RED BLOOD COUNT 3.26 MIL/MM3 (4.50-5.90); RED CELL DISTRIBUTION WIDTH 15.1 % (11.6-17.2); REVIEW FLAG FINAL; WHITE BLOOD COUNT 7.5 TH/MM3 (4.0-11.0)
[2016-11-29 15:25] LABS: APTT (PATIENT) 34.4 SEC (24.3-30.1); INTERNATIONAL NORMALIZED RATIO 1.6 RATIO; PROTHROMBIN TIME - PATIENT 17.6 SEC (9.8-11.6)
[2016-11-29] MEDS: HEPARIN-D5W INJ 250 ML IV SCH (15:30)
--- NOTE | 2016-11-29 15:55 | PD.CONS ---
cc: Saman Cerda MD HPI Service General Surgery Consult Requested By Dr. Bautista Reason for Consult Percutaneous tracheostomy placement Primary Care Physician No Primary Care Physician History of Present Illness This is a 81 year old male who has had multiple recent readmission for recurrent RIGHT sided pleural effusions. He was in a SNF where he became hypoxic and lethargic. He was placed on BiPAP. His respiratory status declined and he was intubated. His hospitalization has been complicated by a grand mal seizure, chest tube placement for pleural effusions and BILATERAL DVTs. He has been unable to wean for mechanical ventilator and this a General Surgery consultation was requested. Review of Systems ROS Limitations: Clinical Condition, Intoxication Past Family Social History Past Medical History Obtained from chart: Recent hospitalization from 10/06/16-10/20/16 due to respiratory failure from pleural effusions status post chest tube placement, followed by pleurodesis with talc on October 16, 2016. Patient was evaluated by cardiothoracic surgeon and he is not a candidate for decortication/aggressive measures. Recent right pneumothoraxwhich developed post thoracocentesis COPDwith chronic CO2 retention Diastolic heart failure Cor pulmonale/pulmonary hypertension of 85 mmHg Severe tricuspid regurgitation Hypertension Atrial fibrillation Chronic anticoagulation on Coumadin Severe Protein calorie malnutrition Past Surgical History Multiple chest tube placements Reported Medications See chart but please note he is on Heparin drip now for Bilateral DVTs Allergies: Uncoded Allergies: dairy products (Allergy, Severe, causes mucous buildup in nose/throat, eyes , and lungs, 11/27/16) Active Ordered Medications Current Medications Medications (Trade) Dose Ordered Sig/Sonia Route Start Time Stop Time Status Last Admin (NS Flush) 2 ml UNSCH PRN FLUSH 11/07/16 22:00 11/10/16 09:32 (NS Flush) 2 ml BID FLUSH 11/08/16 09:00 11/29/16 08:11 (Narcan Inj) 0.4 mg UNSCH PRN IV 11/07/16 22:00 (Tenormin) 50 mg BID PO 11/08/16 09:00 11/29/16 08:11 (Capoten) 50 mg TIDAC PO 11/08/16 08:00 Hold 11/24/16 09:25 Miscellaneous Information Patient in critical care unit? Ass... Q361D XX 11/08/16 04:00 11/08/16 04:00 (D50w (Vial) Inj) 25 ml UNSCH PRN IV PUSH 11/08/16 05:45 (NovoLIN R SUPPLEMENTAL SCALE) 1 Q6HR SQ 11/08/16 06:00 11/19/16 12:38 (NS Flush) DAILY IVF 11/09/16 09:00 11/29/16 08:11 IV Flush UNSCH PRN IVF 11/08/16 09:45 11/11/16 08:00 Potassium Chloride 100 ml @ 50 mls/hr Q2H PRN IV 11/08/16 11:15 11/10/16 03:19 Potassium Chloride 100 ml @ 50 mls/hr Q2H PRN IV 11/08/16 11:15 Potassium Chloride 100 ml @ 25 mls/hr UNSCH PRN IV 11/08/16 11:15 Potassium Chloride 100 ml @ 50 mls/hr Q2H PRN IV 11/08/16 11:15 (Magnesium Sulfate Inj/NS Inj) 100 ml @ 50 mls/hr UNSCH PRN IV 11/08/16 11:15 Magnesium Oxide 800 mg 800 mg UNSCH PRN PO 11/08/16 11:15 (Magnesium Sulfate Inj/NS Inj) 100 ml @ 50 mls/hr UNSCH PRN IV 11/08/16 11:15 Potassium Phosphate 2000 mg 2,000 mg Q4H PRN PO 11/08/16 11:15 (Sodium Phosphate Inj/NS 250 ml Inj) 250 ml @ 42 mls/hr UNSCH PRN IV 11/08/16 11:15 Potassium Phosphate 2000 mg 2,000 mg UNSCH PRN PO/TUBE 11/08/16 11:15 (Potassium Phosphate Inj/NS 250 ml Inj) 260 ml @ 42 mls/hr UNSCH PRN IV 11/08/16 11:15 Lorazepam 1 mg 1 mg Q3H PRN IV PUSH 11/09/16 05:00 11/24/16 22:09 (Coumadin Consult Pharmacy) 0 ml @ 0 mls/hr UNSCH OTHER 11/11/16 07:45 (Coumadin) 6 mg DAILY@16 PO 11/18/16 16:00 Hold 11/27/16 16:38 (Apresoline Inj) 20 mg Q4H PRN IV PUSH 11/18/16 12:45 11/20/16 22:19 (Trandate Inj) 10 mg Q4H PRN IV PUSH 11/18/16 12:45 (Haldol Inj) 3 mg Q4H PRN IV 11/19/16 08:30 11/23/16 23:28 (Deltasone) 10 mg BID PO 11/20/16 21:00 11/29/16 08:12 (Keppra) 500 mg Q12HR PO 11/21/16 21:00 11/29/16 08:12 (Lasix) 20 mg BID@09,18 PO 11/21/16 18:00 11/29/16 08:12 Chlorhexidine Gluconate 15 ml 15 ml BID@08,20 MT 11/25/16 20:00 11/29/16 08:12 Propofol 100 ml @ 0 mls/hr TITRATE IV 11/25/16 16:45 11/29/16 11:34 (Rocephin Inj/NS Inj) 100 ml @ 200 mls/hr Q24H IV 11/26/16 14:00 11/29/16 13:36 Fentanyl Citrate 50 mcg 50 mcg Q4H PRN IV PUSH 11/27/16 12:45 11/27/16 14:06 (Heparin-D5W Inj) 250 ml @ 0 mls/hr TITRATE IV 11/29/16 14:30 11/29/16 15:30 Family History Noncontributory Social History Unable to obtain Physical Exam Vital Signs Vital Signs Date Time Temp Pulse Resp B/P Pulse Ox O2 Delivery O2 Flow Rate FiO2 11/29/16 14:00 70 11/29/16 12:00 40 11/29/16 12:00 98.0 66 18 129/62 99 11/29/16 12:00 66 11/29/16 11:53 97 40 11/29/16 10:00 66 11/29/16 08:18 97 40 11/29/16 08:00 98.1 68 16 145/64 97 11/29/16 08:00 40 11/29/16 08:00 68 11/29/16 06:00 73 11/29/16 04:11 95 40 11/29/16 04:00 97.9 73 18 127/56 95 11/29/16 04:00 78 11/29/16 04:00 40 11/29/16 02:00 40 11/29/16 02:00 68 11/29/16 00:01 93 40 11/29/16 00:00 68 11/29/16 00:00 66 11/29/16 00:00 98.8 66 18 133/64 94 11/29/16 00:00 40 11/28/16 22:00 63 11/28/16 20:00 97.9 63 14 128/60 97 11/28/16 20:00 63 11/28/16 20:00 40 11/28/16 19:37 99 40 11/28/16 18:00 66 11/28/16 16:00 40 11/28/16 16:00 99.1 67 14 140/59 97 11/28/16 16:00 67 Physical Exam GENERAL: Intubated/Sedated elderly male resting in bed SKIN: Warm and dry. HEAD: Atraumatic. Normocephalic. EYES: Pupils equal and round. No scleral icterus. No injection or drainage. ENT: No nasal bleeding or discharge. Mucous membranes pink and moist. NECK: Trachea midline. No scars visible. Trachea palpable. CARDIOVASCULAR: Regular rate and rhythm. RESPIRATORY: No accessory muscle use. Clear to auscultation. Breath sounds equal bilaterally. GASTROINTESTINAL: Abdomen soft, non-tender, nondistended. MUSCULOSKELETAL: Extremities without clubbing, cyanosis, or edema. No obvious deformities. NEUROLOGICAL: Intubated/Sedated. PSYCHIATRIC: Unable to access. Laboratory Laboratory Tests Test 11/29/16 11/29/16 05:14 14:56 White Blood Count 5.8 7.5 Red Blood Count 3.43 3.26 Hemoglobin 11.4 10.9 Hematocrit 33.4 31.6 Mean Corpuscular Volume 97.6 96.8 Mean Corpuscular Hemoglobin 33.2 33.5 Mean Corpuscular Hemoglobin 34.0 34.6 Concent Red Cell Distribution Width 14.9 15.1 Platelet Count 115 103 Mean Platelet Volume 9.3 8.0 Neutrophils (%) (Auto) 77.8 Lymphocytes (%) (Auto) 13.0 Monocytes (%) (Auto) 8.0 Eosinophils (%) (Auto) 0.7 Basophils (%) (Auto) 0.5 Neutrophils # (Auto) 4.5 Lymphocytes # (Auto) 0.8 Monocytes # (Auto) 0.5 Eosinophils # (Auto) 0.0 Basophils # (Auto) 0.0 CBC Comment DIFF FINAL Differential Comment Prothrombin Time 20.2 17.6 Prothromb Time International 1.8 1.6 Ratio Sodium Level 142 Potassium Level 4.0 Chloride Level 101 Carbon Dioxide Level 35.6 Anion Gap 5 Blood Urea Nitrogen 13 Creatinine 0.54 Estimat Glomerular Filtration 146 Rate Random Glucose 103 Calcium Level 8.4 Total Bilirubin 0.5 Aspartate Amino Transf 50 (AST/SGOT) Alanine Aminotransferase 51 (ALT/SGPT) Alkaline Phosphatase 152 Total Protein 5.4 Albumin 1.9 Activated Partial 34.4 Thromboplast Time Date/Time Procedure Status Source Growth 11/26/16 11:30 Gram Stain - Final Complete Sputum Endotracheal 11/26/16 11:30 Sputum Culture - Final Complete Staphylococcus Aureus Result Diagram: 11/29/16 1456 11/29/16 0514 Assessment and Plan Assessment and Plan 81 year old male with ventilator dependent respiratory failure in need of percutaneous tracheostomy placement -Plan for placement at bedside on Friday -Obtain consents -Will need to be NPO after MN on Friday -Will need to time holding of heparin drip -Discussed with TULIO Beaulieu -Discussed with daughter via phone; risks and benefits of procedure were discussed in detail and all her questions were answered Discussed Condition With Dr. Zaida Beaulieu Attending Statement The exam, history, and the medical decision-making described in the above note were completed with the assistance of the mid-level provider. I reviewed and agree with the findings presented. I attest that I had a [id number] encounter with the patient on the same day, and personally performed and documented my assessment and findings in the medical record. anatomy appropriate for bedside perc trach Denise Ackerman Nov 29, 2016 15:54 Saman Cerda MD Dec 06, 2016 09:02
--- NOTE | 2016-11-29 19:13 | MB ---
cc: HAYDE HATCH MD, ALAA DATE OF CONSULTATION 11/29/16 REASON FOR CONSULTATION Dysphagia, PEG tube placement. HISTORY OF PRESENT ILLNESS Mr. Duncan Is an 81-year-old gentleman with recurrent large pleural effusion currently on the ventilator. He is intubated. He has required thoracentesis and chest tube placement in the past. GI service has been consulted for PEG tube placement. Currently, the patient is being fed via a nasogastric tube. PAST MEDICAL HISTORY 1. COPD, 2. Hypertension, 3. Atrial fibrillation 4. Heart failure 5. Malnourishment 6. Atrial fibrillation. PAST SURGICAL HISTORY 1. Knee surgery 2. Thoracentesis FAMILY HISTORY Noncontributory. SOCIAL HISTORY From the chart. The patient has smoking history but no alcohol. FAMILY HISTORY Noncontributory. REVIEW OF SYSTEMS Unable to obtain. The patient is awake but unable to provide any history. PHYSICAL EXAMINATION GENERAL: A well-nourished man in no apparent distress. VITAL SIGNS: Stable. HEAD/NECK: Anicteric sclerae. CHEST: Bilateral air entry with rales. ABDOMEN: Soft, nontender. No hepatosplenomegaly. Bowel sounds are present. CULINARY ARTIST: Exam is nonfocal. RECTAL: Exam deferred at this time LABORATORY DATA Hemoglobin 11.4, creatinine is 0.54, INR is 1.8. MEDICATIONS Current, 1. Ceftriaxone. 2. Albuterol. 3. Coumadin which has been stopped. 4. Hydralazine. 5. Trandate 6. Tenormin. IMPRESSION Dysphagia, PEG tube placement. RECOMMENDATIONS EGD with PEG tube placement planned for Friday. Continue to hold Coumadin. Continue to monitor labs. Dr. Caballero will follow from tomorrow. This has been discussed with the nurse. Thank you for this referral. MD SHANTELL Allen/ /2:19 PM /6:59 PM
[2016-11-29 21:47] LABS: APTT (PATIENT) 109.2 SEC (24.3-30.1)
[2016-11-30] VITALS (14 sets, daily range): BP systolic 99–138; BP diastolic 52–63; PULSE 73–96; RESP 15–23; TEMP 98.2–100.6; O2SAT 94–100
[2016-11-30 01:12] LABS: APTT (PATIENT) 88.1 SEC (24.3-30.1)
[2016-11-30 04:45] LABS: ALT (GPT) 39 U/L (12-78); ANION GAP 5 MEQ/L (5-15); AST (GOT) 27 U/L (15-37); BLOOD UREA NITROGEN 13 MG/DL (7-18); CHLORIDE 101 MEQ/L (98-107); GLOMERULAR FILTRATION RATE 163 ML/MIN (>89); POTASSIUM 3.8 MEQ/L (3.5-5.1); SODIUM (NA) 143 MEQ/L (136-145)
[2016-11-30 04:46] LABS: AUTOMATED NEUTROPHIL # 6.6 TH/MM3 (1.8-7.7); BASOPHIL % 0.5 % (0.0-2.0); EOSINOPHIL # 0.1 TH/MM3 (0-0.4); EOSINOPHIL % 0.9 % (0.0-4.0); HEMATOCRIT 31.8 % (39.0-51.0); HEMO FLAGS DIFF FINAL; LYMPH % 8.1 % (9.0-44.0); LYMPHOCYTE # 0.7 TH/MM3 (1.0-4.8); MEAN CELL VOLUME 98.6 FL (80.0-100.0); MEAN CORPUSCULAR HEMOGLOBIN 32.8 PG (27.0-34.0); MEAN CORPUSCULAR HGB CONC 33.2 % (32.0-36.0); MONO % 8.7 % (0.0-8.0); NEUT % 81.8 % (16.0-70.0); PLATELET COUNT 106 TH/MM3 (150-450); RED BLOOD COUNT 3.23 MIL/MM3 (4.50-5.90); RED CELL DISTRIBUTION WIDTH 14.3 % (11.6-17.2); WHITE BLOOD COUNT 8.1 TH/MM3 (4.0-11.0)
[2016-11-30 04:57] LABS: ALKALINE PHOSPHATASE 141 U/L (45-117); TOTAL BILIRUBIN ADULT 0.4 MG/DL (0.2-1.0)
[2016-11-30] MEDS: INSULIN NovoLIN REGULAR SUPPLEMENTAL SCALE SQ SCH ×4 (06:00→17:50)
[2016-11-30] MEDS: HEPARIN-D5W INJ 250 ML IV SCH (06:22)
--- NOTE | 2016-11-30 08:10 | HHI.CCPN ---
Subjective Remarks/Hospital Course This is an 81-year-old male who has had multiple readmissions over the past few months for a recurrent right-sided pleural effusion. He represents from his intermediate facility with recurrent right-sided pleural effusion as well as hypoxia and somnolence. He was found to have significant hypercarbia and a PCO2 in the 90s. He was initially placed on BiPAP and admitted to the [facility]. He became more somnolent and his oxygen saturation began to decline. At this point a critical care medicine is consulted to evaluate and manage his hypercarbic respiratory failure. Because he is failed his trial of noninvasive positive pressure ventilation, we will move towards intubating the patient. I evaluated the patient and he is essentially unresponsive and obtunded and only minimally withdrawing to pain. I can obtain no additional history from the patient. Subjective: 11/09: Early this a.m. at approximately 06:30 the patient was noted to have a grand mal seizure lasting approximately 60 seconds followed by a small tonic- clonic seizure lasting 30 seconds involving the lower extremities. The patient received Ativan 2 mg with cessation of seizure activity. Stat CT of the brain without contrast was obtained showed no acute abnormality. EEG was obtained previously awaiting results. Prior to the event the patient was noted to be on a fentanyl infusion at approximately 250 mcg/h. The patient was noted to be a GCS 10T, squeezing my hand. 11/10: The patient was noted to have multiple seizures requiring interventions with IV Ativan. Described as tonic-clonic in nature with eyes rolled back in the head. Gross motor movement shaking 4 extremities. Today the patient was noted to have a positive growth and blood cultures. WBC count elevated. Ammonia level was drawn less than 10, lactate was noted to be 2.2 this morning. Pleural fluid culture negative growth to date. 11/11: On stimulation patient continues to have jerking movement of all extremities. EEG negative for seizures. Check MRI today. Dr. Kirkland is neurology. Remains on 2 mcg/min of Levophed 11/12: Per neurologist, patient had witnessed with tonic convulsions started over right arm and propagated to left UE and both LE with fluttering of the eyes and upward gaze.Loaded with Dilantin iv infusion and a maintenance dose of 100mg Q8h, Stat EEG negative for seizures. Its unclear to me whether it is seizure or myoclonus 11/13: No change in neuro status. Continues to have jerking movements off lower extremity when stimulated. EEG 2 have been negative for seizures. We'll hold sedation for neuro exam 11/14: On sedation hold opens eyes. Appears to follow commands and upper extremity. Still has some tremulousness of the extremities. Remains off pressors 11/15: Remains on Precedex intermittently following commands for RN. Placed on CPAP tolerating well. No evidence of myoclonus now 11/16: On 1.1 mcg/kg/hr of Precedex. No spontaneous eye opening but moves all extremities spontaneously. Not following commands will reduce Precedex, and start weaning trials 11/17: Mental status significantly improved patient following commands on Precedex. However chest tube was dislodged yesterday evening, now has bilateral pleural effusions left is more than right, appears large. Vent day 10 11/18: Off Precedex following commands upper extremities. But continues to fail C Pap trials due to tachypnea and low tidal volumes. Status post large-volume left thoracentesis yesterday with 1.2 L of old blood-tinged fluid removed. 11/19: Overnight agitated, requiring maximum dose Precedex 1.4 mcg per kg per hr and restraints. Currently heavily sedated. Chest x-ray shows increasing left effusion confirmed by ultrasound. We'll proceed with left pigtail catheter after consent. Continue to hold Coumadin due to hemorrhagic effusion 11/20: Left pigtail chest tube placed yesterday with a 30 mL output. Mentation improving now oriented follows commands. Requiring oxygen by nasal cannula. Slight increase in right effusion seen on chest x-ray 11/21: CT chest shows moderate left-sided pneumothorax. Eating continues to be slightly tachypneic but patient appears comfortable. Agitated requiring 4 point restraints. Also a liver enzymes are increasing most likely secondary to Dilantin. I will DC Dilantin and start him on Keppra 11/22 No acute events overnight. On Precedex drip. Afebrile. CXR this morning showed no evidence of PTX. 11/23 Patient is on Precedex 0.7 awake and alert on 2L oxygen with good sats. 11/24 Patient is off Precedex drip. Afebrile. Awake and alert. 11/25 Called by nurse as patient was diaphoretic, tachypneic, tachycardic, hypertensive minimally responsive and had O2 saturation in 80's he was subsequently intubated and placed on mechanical ventilation. CXR from earlier showed volume loss, consolidation RUL. 11/26 Patient is sedated with Diprivan and intubated. s/p bronch yesterday which showed mucous plugs on right CXR post bronch showed much improved aeration of right lung. Afebrile 11/27: Remains sedated with propofol, orally intubated on mechanical ventilation. 2 left-sided pigtail catheter is in place with posterior pigtail catheter having positive air leak. 11/28: Remains sedated, orally intubated on mechanical ventilation. One of the 2 pigtail catheters on the left side got dislodged in the morning by animal breeder RN. Patient did not drop O2 sats. Second pigtail catheter which is still in place does not have any air leak currently. Stat chest x-ray obtained by tn which shows small apical pneumothorax on the left. Peak airway pressures 14, patient is not having any issues with hypotension and desaturation. We'll repeat chest x-ray later today to follow-up on pneumothorax and decide regarding placing another chest tube. 11/29 Patient is sedated with Diprivan and intubated. Afebrile. 11/30 the patient remains on heparin infusion for occlusive DVT left cephalic vein , and scattered clots left brachial and left axillary veins. Noted magnesium level was decreased 11/28. Repeat magnesium level pending this a.m., will replete as necessary. Objective Vital Signs Date Time Temp Pulse Resp B/P Pulse Ox O2 Delivery O2 Flow Rate FiO2 11/30/16 07:34 95 40 11/30/16 06:00 73 11/30/16 04:00 98.5 16 99/54 Intake and Output 11/29/16 11/29/16 11/30/16 08:00 16:00 00:00 Intake Total 333 ml 193 ml 536 ml Output Total 250 ml 700 ml 200 ml Balance 83 ml -507 ml 336 ml Result Diagram: 11/30/16 0313 11/30/16 0313 Imaging Last Impressions Upper Extremity Ultrasound 11/29/16 0000 Signed Impressions: Service Date/Time: Tuesday, November 29, 2016 11:59 - CONCLUSION: Thrombus as described above. Clot in the deep venous system is accommodation of occlusive and nonocclusive clot. Kun Mendoza MD FACR Chest X-Ray 11/29/16 0000 Signed Impressions: Service Date/Time: Tuesday, November 29, 2016 07:29 - CONCLUSION: No change in bilateral pulmonary opacity. No evidence of pneumothorax. Endotracheal tube tip now 3 cm above the laura. Mathew Guerrero MD Chest CT 11/20/16 0000 Signed Impressions: Service Date/Time: October 09:37 - CONCLUSION: 1. Left pneumothorax without tension 2. Small loculated effusion medial right base 3. Pericardial effusion as above Jimi Chavez MD Liver Ultrasound 11/17/16 0000 Signed Impressions: Service Date/Time: Thursday, November 17, 2016 15:58 - CONCLUSION: 1. Increased liver echogenicity characteristic of mild fatty infiltration or hepatocellular disease. 2. Trace free fluid in the abdomen. Pleural effusions. Mild gallbladder wall thickening. Chaka Campos MD Brain MRI 11/11/16 0000 Signed Impressions: Service Date/Time: Friday, November 11, 2016 12:53 - CONCLUSION: 1. 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 2. 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 The others would be consistent with punctate, remote areas of hemorrhage suggesting possibility of amyloid. Eitan Mendoza MD Head CT 11/09/16 0000 Signed Impressions: Service Date/Time: Wednesday, November 09, 2016 10:29 - CONCLUSION: Stable CT scan of the brain. Pradeep Rodriguez MD Chest Tube Insertion 11/08/16 0000 Signed Impressions: Service Date/Time: Tuesday, November 08, 2016 12:46 - CONCLUSION: Uncomplicated right chest tube placement as above. 1500 cc of fluid removed and sent for culture. Post CT scan reveals a large. pleural rind . The right lung may well not reexpanded. A.m. chest x-ray is pending. Cultures pending. Kun Mendoza MD FACR CT Angiography 11/07/16 0000 Signed Impressions: Service Date/Time: October 20:40 - CONCLUSION: 1. No pulmonary embolus. 2. Marked cardiac enlargement, especially the atria. 3. Bilateral effusions and atelectasis about the same on the left and considerably worse on the right. Right pneumothorax seen previously has resolved. Dhruv Foster MD Objective Remarks GENERAL: Patient is 81yo intubated and sedated. SKIN: Warm and dry. HEAD: Normocephalic. EYES: No scleral icterus. No injection or drainage. NECK: Supple, trachea midline. No JVD or lymphadenopathy. Orally intubated CARDIOVASCULAR: Regular rate and rhythm without murmurs, gallops, or rubs. RESPIRATORY: Breath sounds equal bilaterally. No accessory muscle use. GASTROINTESTINAL: Abdomen soft, non-tender, nondistended. MUSCULOSKELETAL: No cyanosis, + edema LUE. Neuro: Sedated, intubated Date of Insertion: Nov 08, 2016 Side: Right Location: Internal, Jugular A/P Assessment and Plan Assessment: This is an 81-year-old male with history of prior recurrent right pleural effusions and COPD now presents with acute hypercarbic and hypoxic respiratory failure which has failed noninvasive positive pressure ventilation. Intubated and placed on mechanical ventilation. Covering COPD exacerbation, as well as healthcare associated pneumonia given his history of being on Levaquin at his intermediate facility. He remains critically ill. Not sure that we will be able to get him through this hospitalization, and his recurrent respiratory failures are clearly making him more deconditioned every time he comes in the hospital. Despite this, daughter continues to request aggressive measures. Extubated 11/18/16. Reintubated 11/25. Plan by systems: Neurologic: Myoclonus-resolved Agitated delirium CO2 narcosis Metabolic encephalopathy Mild dementia -On Diprivan infusion for sedation. Use Ativan PRN for breakthrough seizures / myoclonus -EEG negative 11/10/15, 11/11/16 (moderate to severe encephalopathy, no seizure) -11/08 CT of the brain-no acute abnormality. 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 Question of amyloid -On Keppra 500 mg by mouth twice a day Respiratory: Acute hypercarbic and hypoxic respiratory failure-extubated - Reintubated 11/25 Recurrent right pleural effusion s/p chest tube placement-dislodged 11/17 New moderate left pneumothorax-resolved Right pneumothorax-resolved Large hemorrhagic left pleural effusion status post thoracentesis 11/17/16, pigtail chest tube 11/19/16 Healthcare associated pneumonia COPD exacerbation -Continue with vent support keep sat >92% -Bronchodilators, Mucomyst nebs -s/p Bronch 11/25: Mucous plugs on right CXR post bronch -much improved aeration of right lung Continue prednisone per Dr. Kitchen, -s/p anterior left anterior pigtail chest tube, continues on 40 cm of water suction --Status post left thoracentesis 11/17/16 with 1.2 L of hemorrhagic fluid removed. CXR/US shows reaccumulation of left pleural fluid. pigtail chest tube placed 11/19/1611/08 S/P CT guided IR drainage of recurrent right posterior pleural effusion, unable to perform pleurodesis, accidentally dislodged Monitor CT drainage. Patient has one pigtail catheter on the left side which has no air leak currently. One of the pigtail catheters got dislodged on 11/28 in a.m. -Gen. Surgery for trach planned for Saturday 12/02 Cardiovascular: Severe pulmonary hypertension (PASP 85 on Echo 10/08/16, repeat echo 11/19/16 PASP was 47) A. fib RVR Hypertension Moderate to severe TR Continue with BP meds- (captopril and atenolol 11/14/16) --Monitor HR and BP keep MAP>65mmHg --Repeat 2d echo 11/19/16 PASP was 47 compared to 85 on 10/18/16 --. Renal: Hypernatremia- resolved Monitor renal function, I/O's, electrolytes replacement per protocol. -On Lasix 20mg BID, FEN/GI: Acute intravascular volume overload Acute protein calorie malnutritionsevere Elevated LFT's -Monitor LFT's...trending down -Glucerna 1.5 with goal rate 45ml/hr -GI eval for PEG tube placement-scheduled for Saturday 12/02 Heme/ID: Healthcare associated pneumonia, staph aureus in sputum Leukocytosis- Afebrile -Patient s/p Cefepime and Zithromax 11/08-11/13 and Rocephin 11/15-11/18 ID is following. Rocephin resumed for MSSA pneumonia on 11/26 -11/26 Sputum cx : Staph Aureus 11/08 blood -micrococcus 08/28 possible contaminant - Urine cultures-NGTD --Sputum cx 11/12/16 with staph aureus Endocrine: Hyperglycemia of critical illness -- SSI, medium scale, every 6 hours Prophylaxis: GI Prophylaxis Protonix 40 mg IV every 24 hours DVT Prophylaxis --SCDs Doppler US LUE: Occlusive and non-occlusive clot in cephalic vein, scattered clot in brachial and axillary vein On Heparin drip, Coumadin was placed on hold 11/29/16. Invasive procedures planned for Friday Lines: Peripheral IVsx 2. central line Vital Dispo: Palliative care is following. Discussed with MEDICAL ANTHROPOLOGIST at bedside This patient remains critically ill with one or more organ systems which are or may become a threat to life. I have spent in excess of 31 minutes discontinuously in the care and management of this patient. This time is exclusive of procedures, and includes, but is not limited to, evaluation of the patient, review of the medical record, discussions with family, consultants, nursing staff, or respiratory therapy, and documentation in the medical record. Physician Kathrine Childesr MD Nov 30, 2016 08:10 Kathrine Gaspar MD Nov 30, 2016 08:10
[2016-11-30] MEDS: predniSONE 10 MG TAB PO SCH ×2 (08:19→20:57)
[2016-11-30] MEDS: FUROSEMIDE 20 MG TAB PO SCH ×2 (08:19→17:50)
[2016-11-30] MEDS: ATENOLOL 50 MG TAB PO SCH ×2 (08:20→20:57)
[2016-11-30] MEDS: CHLORHEXIDINE 0.12% (ORAL KIT) 15 ML CUP MT SCH ×2 (08:20→20:57)
[2016-11-30] MEDS: levETIRAcetam 500 MG TAB PO SCH ×2 (08:20→20:57)
[2016-11-30] MEDS: SODIUM CHLORIDE 0.9% FLUSH 5 ML FLUSH FLUSH SCH ×2 (08:22→20:57)
[2016-11-30] MEDS: SODIUM CHLORIDE 0.9% FLUSH 5 ML FLUSH IVF SCH (08:22)
--- NOTE | 2016-11-30 10:20 | HHI.PR ---
Subjective Remarks Patient remains intubated and sedation. For trach and PEG tube placement on Saturday 12/02. Afebrile. On Heparin drip for DVT LUE. Objective Vital Signs Vital Signs Date Time Temp Pulse Resp B/P Pulse Ox O2 Delivery O2 Flow Rate FiO2 11/30/16 07:34 95 40 11/30/16 06:00 73 11/30/16 04:00 73 11/30/16 04:00 98.5 96 16 99/54 96 11/30/16 04:00 40 11/30/16 03:38 100 40 11/30/16 02:00 73 11/30/16 00:00 99.0 75 16 100/52 95 11/30/16 00:00 73 11/30/16 00:00 40 11/29/16 23:52 95 40 11/29/16 22:00 75 11/29/16 20:26 95 40 11/29/16 20:00 40 11/29/16 20:00 72 11/29/16 20:00 96.1 76 14 111/54 96 11/29/16 18:00 74 11/29/16 16:00 72 11/29/16 16:00 40 11/29/16 16:00 99.1 72 16 141/63 95 11/29/16 15:52 97 40 11/29/16 14:00 70 11/29/16 12:00 40 11/29/16 12:00 98.0 66 18 129/62 99 11/29/16 12:00 66 11/29/16 11:53 97 40 I/O 11/29/16 11/29/16 11/29/16 11/30/16 11/30/16 11/30/16 07:00 15:00 23:00 07:00 15:00 23:00 Intake Total 940 ml 193 ml 536 ml 582 ml Output Total 550 ml 700 ml 200 ml 300 ml Balance 390 ml -507 ml 336 ml 282 ml IV Total 552 ml 103 ml 226 ml 222 ml Tube Feeding 388 ml 90 ml 310 ml 360 ml Output Urine Total 550 ml 700 ml 200 ml 300 ml Chest Tube Drainage Total 0 ml Result Diagram: 11/30/16 0313 11/30/16 0313 Other Results Laboratory Tests Test 11/29/16 11/29/16 11/30/16 11/30/16 14:56 21:07 00:01 03:13 White Blood Count 7.5 TH/MM3 8.1 TH/MM3 Red Blood Count 3.26 MIL/MM3 3.23 MIL/MM3 Hemoglobin 10.9 GM/DL 10.6 GM/DL Hematocrit 31.6 % 31.8 % Mean Corpuscular Volume 96.8 FL 98.6 FL Mean Corpuscular Hemoglobin 33.5 PG 32.8 PG Mean Corpuscular Hemoglobin 34.6 % 33.2 % Concent Red Cell Distribution Width 15.1 % 14.3 % Platelet Count 103 TH/MM3 106 TH/MM3 Mean Platelet Volume 8.0 FL 9.4 FL Prothrombin Time 17.6 SEC Prothromb Time International 1.6 RATIO Ratio Activated Partial 34.4 SEC 109.2 SEC 88.1 SEC Thromboplast Time Neutrophils (%) (Auto) 81.8 % Lymphocytes (%) (Auto) 8.1 % Monocytes (%) (Auto) 8.7 % Eosinophils (%) (Auto) 0.9 % Basophils (%) (Auto) 0.5 % Neutrophils # (Auto) 6.6 TH/MM3 Lymphocytes # (Auto) 0.7 TH/MM3 Monocytes # (Auto) 0.7 TH/MM3 Eosinophils # (Auto) 0.1 TH/MM3 Basophils # (Auto) 0.0 TH/MM3 CBC Comment DIFF FINAL Differential Comment Sodium Level 143 MEQ/L Potassium Level 3.8 MEQ/L Chloride Level 101 MEQ/L Carbon Dioxide Level 37.0 MEQ/L Anion Gap 5 MEQ/L Blood Urea Nitrogen 13 MG/DL Creatinine 0.49 MG/DL Estimat Glomerular Filtration 163 ML/MIN Rate Random Glucose 125 MG/DL Calcium Level 8.1 MG/DL Total Bilirubin 0.4 MG/DL Aspartate Amino Transf 27 U/L (AST/SGOT) Alanine Aminotransferase 39 U/L (ALT/SGPT) Alkaline Phosphatase 141 U/L Total Protein 5.2 GM/DL Albumin 1.9 GM/DL Objective Remarks GENERAL: Patient is 81 yo intubated and sedated. SKIN: Warm and dry. HEAD: Normocephalic. EYES: No scleral icterus. No injection or drainage. NECK: Supple, trachea midline. No JVD or lymphadenopathy. CARDIOVASCULAR: Regular rate and rhythm without murmurs, gallops, or rubs. RESPIRATORY: Breath sounds equal bilaterally. No accessory muscle use. GASTROINTESTINAL: Abdomen soft, non-tender, nondistended. MUSCULOSKELETAL: No cyanosis, or edema. Neuro: Intubated, sedated A/P Assessment and Plan Acute hypercarbic and hypoxic respiratory failure-extubated - Reintubated 11/25 Recurrent right pleural effusion s/p chest tube placement-dislodged 11/17 Large left pleural effusion status post thoracentesis 11/17/16, pigtail chest tube 11/19/16 Healthcare associated pneumonia COPD exacerbation DVT LUE Afib HTN Plan Continue with vent support keep sat >92% Bronchodilators, ICU vent bundle. Continue with Prednisone 10mg BID CXR 11/29 no changes in b/l pulm opacities, no PTX Monitor CT drainage. For trach on Friday Continue with Heparin drip for DVT LUE. Abx per ID(Rocephin) monitor for signs of infections ( Fever, WBC) Continue treatment plan. Otoniel Dominguez MD Nov 30, 2016 10:19
--- NOTE | 2016-11-30 12:20 | HHI.GIFU ---
Subjective Remarks Pt sedated on vent Objective Vitals I&O Vital Signs Date Time Temp Pulse Resp B/P Pulse Ox O2 Delivery O2 Flow Rate FiO2 11/30/16 07:34 95 40 11/30/16 06:00 73 11/30/16 04:00 73 11/30/16 04:00 98.5 96 16 99/54 96 11/30/16 04:00 40 11/30/16 03:38 100 40 11/30/16 02:00 73 11/30/16 00:00 99.0 75 16 100/52 95 11/30/16 00:00 73 11/30/16 00:00 40 11/29/16 23:52 95 40 11/29/16 22:00 75 11/29/16 20:26 95 40 11/29/16 20:00 40 11/29/16 20:00 72 11/29/16 20:00 96.1 76 14 111/54 96 11/29/16 18:00 74 11/29/16 16:00 72 11/29/16 16:00 40 11/29/16 16:00 99.1 72 16 141/63 95 11/29/16 15:52 97 40 11/29/16 14:00 70 I/O 11/29/16 11/29/16 11/29/16 11/30/16 11/30/16 11/30/16 07:00 15:00 23:00 07:00 15:00 23:00 Intake Total 940 ml 193 ml 536 ml 582 ml Output Total 550 ml 700 ml 200 ml 300 ml Balance 390 ml -507 ml 336 ml 282 ml IV Total 552 ml 103 ml 226 ml 222 ml Tube Feeding 388 ml 90 ml 310 ml 360 ml Output Urine Total 550 ml 700 ml 200 ml 300 ml Chest Tube Drainage Total 0 ml Laboratory Laboratory Tests Test 11/29/16 11/29/16 11/30/16 11/30/16 14:56 21:07 00:01 03:13 White Blood Count 7.5 8.1 Red Blood Count 3.26 3.23 Hemoglobin 10.9 10.6 Hematocrit 31.6 31.8 Mean Corpuscular Volume 96.8 98.6 Mean Corpuscular Hemoglobin 33.5 32.8 Mean Corpuscular Hemoglobin 34.6 33.2 Concent Red Cell Distribution Width 15.1 14.3 Platelet Count 103 106 Mean Platelet Volume 8.0 9.4 Prothrombin Time 17.6 Prothromb Time International 1.6 Ratio Activated Partial 34.4 109.2 88.1 Thromboplast Time Neutrophils (%) (Auto) 81.8 Lymphocytes (%) (Auto) 8.1 Monocytes (%) (Auto) 8.7 Eosinophils (%) (Auto) 0.9 Basophils (%) (Auto) 0.5 Neutrophils # (Auto) 6.6 Lymphocytes # (Auto) 0.7 Monocytes # (Auto) 0.7 Eosinophils # (Auto) 0.1 Basophils # (Auto) 0.0 CBC Comment DIFF FINAL Differential Comment Sodium Level 143 Potassium Level 3.8 Chloride Level 101 Carbon Dioxide Level 37.0 Anion Gap 5 Blood Urea Nitrogen 13 Creatinine 0.49 Estimat Glomerular Filtration 163 Rate Random Glucose 125 Calcium Level 8.1 Total Bilirubin 0.4 Aspartate Amino Transf 27 (AST/SGOT) Alanine Aminotransferase 39 (ALT/SGPT) Alkaline Phosphatase 141 Total Protein 5.2 Albumin 1.9 Test 11/30/16 09:50 Activated Partial 148.0 Thromboplast Time Magnesium Level 2.0 Date/Time Procedure Status Source Growth 11/26/16 11:30 Gram Stain - Final Complete Sputum Endotracheal 11/26/16 11:30 Sputum Culture - Final Complete Staphylococcus Aureus Imaging Last Impressions Upper Extremity Ultrasound 11/29/16 0000 Signed Impressions: Service Date/Time: Tuesday, November 29, 2016 11:59 - CONCLUSION: Thrombus as described above. Clot in the deep venous system is accommodation of occlusive and nonocclusive clot. Kun Mendoza MD FACR Chest X-Ray 11/29/16 0000 Signed Impressions: Service Date/Time: Tuesday, November 29, 2016 07:29 - CONCLUSION: No change in bilateral pulmonary opacity. No evidence of pneumothorax. Endotracheal tube tip now 3 cm above the laura. Mathew Guerrero MD Chest CT 11/20/16 0000 Signed Impressions: Service Date/Time: October 09:37 - CONCLUSION: 1. Left pneumothorax without tension 2. Small loculated effusion medial right base 3. Pericardial effusion as above Jimi Chavez MD Liver Ultrasound 11/17/16 0000 Signed Impressions: Service Date/Time: Thursday, November 17, 2016 15:58 - CONCLUSION: 1. Increased liver echogenicity characteristic of mild fatty infiltration or hepatocellular disease. 2. Trace free fluid in the abdomen. Pleural effusions. Mild gallbladder wall thickening. Chaka Campos MD Brain MRI 11/11/16 0000 Signed Impressions: Service Date/Time: Friday, November 11, 2016 12:53 - CONCLUSION: 1. 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 2. 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 The others would be consistent with punctate, remote areas of hemorrhage suggesting possibility of amyloid. Eitan Mendoza MD Head CT 11/09/16 0000 Signed Impressions: Service Date/Time: Wednesday, November 09, 2016 10:29 - CONCLUSION: Stable CT scan of the brain. Pradeep Rodriguez MD Chest Tube Insertion 11/08/16 0000 Signed Impressions: Service Date/Time: Tuesday, November 08, 2016 12:46 - CONCLUSION: Uncomplicated right chest tube placement as above. 1500 cc of fluid removed and sent for culture. Post CT scan reveals a large. pleural rind . The right lung may well not reexpanded. A.m. chest x-ray is pending. Cultures pending. Kun Mendoza MD FACR CT Angiography 11/07/16 0000 Signed Impressions: Service Date/Time: October 20:40 - CONCLUSION: 1. No pulmonary embolus. 2. Marked cardiac enlargement, especially the atria. 3. Bilateral effusions and atelectasis about the same on the left and considerably worse on the right. Right pneumothorax seen previously has resolved. Dhruv Foster MD Physical Exam HEENT: sedated on vent; normocephalic; atraumatic; no jaundice. NECK: Neck is supple, CHEST: course lung sounds CARDIAC: Regular rate and rhythm with no murmur gallop or rubs. ABDOMEN: Soft, nondistended,no hepatosplenomegaly; bowel sounds are present in all four quadrants. EXTREMITIES: ecchymoses BUE, BLE. SKIN: Normal; no rash; no jaundice. 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 Assessment and Plan Plan ASSESSMENT: - dysphagia. on vent. - need for PEG tube - elevated APTT, 148, has DVT per US doppler PLAN: - PEG tube placement friday - hold heparin 0600 Friday - no tube feed after midnight Friday This pt was seen by myself and Dr Caballero and this note is written on his behalf Olimpia Freeman Nov 30, 2016 12:20
[2016-11-30 13:18] LABS: INTERNATIONAL NORMALIZED RATIO 1.3 RATIO; PROTHROMBIN TIME - PATIENT 14.9 SEC (9.8-11.6)
[2016-11-30 14:34] LABS: APTT (PATIENT) 37.9 SEC (24.3-30.1)
[2016-11-30] MEDS: cefTRIAXone INJ 1,000 MG in SODIUM CHLORIDE 0.9% INJ 100 ML IV SCH (14:56)
[2016-11-30] MEDS: RESP: ALBUTEROL 2.5 MG/IPRATROPIUM 0.5 MG NEB (PRN) INH (15:02)
[2016-11-30 22:05] LABS: APTT (PATIENT) 44.7 SEC (24.3-30.1)
[2016-12-01] VITALS (15 sets, daily range): BP systolic 104–132; BP diastolic 54–64; PULSE 66–80; RESP 15–31; TEMP 98–99.4; O2SAT 93–99
[2016-12-01 03:53] LABS: ANION GAP 4 MEQ/L (5-15); AST (GOT) 39 U/L (15-37); BLOOD UREA NITROGEN 18 MG/DL (7-18); CHLORIDE 100 MEQ/L (98-107); GLOMERULAR FILTRATION RATE 160 ML/MIN (>89); MAGNESIUM 2.1 MG/DL (1.5-2.5); POTASSIUM 3.9 MEQ/L (3.5-5.1); SODIUM (NA) 143 MEQ/L (136-145)
[2016-12-01 03:56] LABS: APTT (PATIENT) 50.4 SEC (24.3-30.1); INTERNATIONAL NORMALIZED RATIO 1.1 RATIO; PROTHROMBIN TIME - PATIENT 12.6 SEC (9.8-11.6)
[2016-12-01 03:57] LABS: ALKALINE PHOSPHATASE 156 U/L (45-117); ALT (GPT) 47 U/L (12-78); HEMATOCRIT 31.8 % (39.0-51.0); MEAN CELL VOLUME 98.3 FL (80.0-100.0); MEAN CORPUSCULAR HGB CONC 33.6 % (32.0-36.0); PLATELET COUNT 91 TH/MM3 (150-450); RED BLOOD COUNT 3.23 MIL/MM3 (4.50-5.90); RED CELL DISTRIBUTION WIDTH 14.9 % (11.6-17.2); TOTAL BILIRUBIN ADULT 0.4 MG/DL (0.2-1.0); WHITE BLOOD COUNT 9.1 TH/MM3 (4.0-11.0)
[2016-12-01 04:08] LABS: REVIEW FLAG FINAL
[2016-12-01] MEDS: INSULIN NovoLIN REGULAR SUPPLEMENTAL SCALE SQ SCH ×2 (05:51)
--- NOTE | 2016-12-01 06:22 | RADRPT ---
EXAM DATE/TIME: 12/01/2016 04:35 [facility] COMPARISON: CHEST SINGLE AP, November 29, 2016, 7:29. INDICATIONS : Shortness of breath, possible pulmonary disease. MEDICAL HISTORY : Hypertension. Cardiovascular disease. Congestive heart failure. SURGICAL HISTORY : None. ENCOUNTER: Subsequent ACUITY: 2 weeks PAIN SCORE: Non-responsive. LOCATION: Bilateral chest FINDINGS: ET tube, NG tube, and left chest tube are well placed. A pneumothorax is not seen. There is increased density seen at the bases bilaterally. There are mild bilateral pleural effusions. CONCLUSION: Persistent bibasilar areas of consolidation or atelectasis. There are mild effusions. There is a left chest tube in place. Dhruv Allen MD on December 01, 2016 at 6:14 Board Certified Radiologist. This report was verified electronically.
[2016-12-01] MEDS: PROPOFOL 1000 MG/100 ML INJ 100 ML IV SCH (06:39)
[2016-12-01] MEDS: levETIRAcetam 500 MG TAB PO SCH ×2 (08:20→20:34)
[2016-12-01] MEDS: predniSONE 10 MG TAB PO SCH ×2 (08:20→20:34)
[2016-12-01] MEDS: FUROSEMIDE 20 MG TAB PO SCH ×2 (08:20→18:33)
[2016-12-01] MEDS: ATENOLOL 50 MG TAB PO SCH ×2 (08:20→20:34)
[2016-12-01] MEDS: CHLORHEXIDINE 0.12% (ORAL KIT) 15 ML CUP MT SCH ×2 (08:22→20:33)
[2016-12-01] MEDS: SODIUM CHLORIDE 0.9% FLUSH 5 ML FLUSH FLUSH SCH ×2 (08:22→20:34)
[2016-12-01] MEDS: SODIUM CHLORIDE 0.9% FLUSH 5 ML FLUSH IVF SCH (08:22)
[2016-12-01] MEDS ORDERED: BISACODYL 10 MG SUPP RECTAL PRN (10:15)
--- NOTE | 2016-12-01 10:25 | HHI.CCPN ---
Subjective Remarks/Hospital Course This is an 81-year-old male who has had multiple readmissions over the past few months for a recurrent right-sided pleural effusion. He represents from his longterm facility with recurrent right-sided pleural effusion as well as hypoxia and somnolence. He was found to have significant hypercarbia and a PCO2 in the 90s. He was initially placed on BiPAP and admitted to the [facility]. He became more somnolent and his oxygen saturation began to decline. At this point a critical care medicine is consulted to evaluate and manage his hypercarbic respiratory failure. Because he is failed his trial of noninvasive positive pressure ventilation, we will move towards intubating the patient. I evaluated the patient and he is essentially unresponsive and obtunded and only minimally withdrawing to pain. I can obtain no additional history from the patient. Subjective: 11/09: Early this a.m. at approximately 06:30 the patient was noted to have a grand mal seizure lasting approximately 60 seconds followed by a small tonic- clonic seizure lasting 30 seconds involving the lower extremities. The patient received Ativan 2 mg with cessation of seizure activity. Stat CT of the brain without contrast was obtained showed no acute abnormality. EEG was obtained previously awaiting results. Prior to the event the patient was noted to be on a fentanyl infusion at approximately 250 mcg/h. The patient was noted to be a GCS 10T, squeezing my hand. 11/10: The patient was noted to have multiple seizures requiring interventions with IV Ativan. Described as tonic-clonic in nature with eyes rolled back in the head. Gross motor movement shaking 4 extremities. Today the patient was noted to have a positive growth and blood cultures. WBC count elevated. Ammonia level was drawn less than 10, lactate was noted to be 2.2 this morning. Pleural fluid culture negative growth to date. 11/11: On stimulation patient continues to have jerking movement of all extremities. EEG negative for seizures. Check MRI today. Dr. Kirkland is neurology. Remains on 2 mcg/min of Levophed 11/12: Per neurologist, patient had witnessed with tonic convulsions started over right arm and propagated to left UE and both LE with fluttering of the eyes and upward gaze.Loaded with Dilantin iv infusion and a maintenance dose of 100mg Q8h, Stat EEG negative for seizures. Its unclear to me whether it is seizure or myoclonus 11/13: No change in neuro status. Continues to have jerking movements off lower extremity when stimulated. EEG 2 have been negative for seizures. We'll hold sedation for neuro exam 11/14: On sedation hold opens eyes. Appears to follow commands and upper extremity. Still has some tremulousness of the extremities. Remains off pressors 11/15: Remains on Precedex intermittently following commands for RN. Placed on CPAP tolerating well. No evidence of myoclonus now 11/16: On 1.1 mcg/kg/hr of Precedex. No spontaneous eye opening but moves all extremities spontaneously. Not following commands will reduce Precedex, and start weaning trials 11/17: Mental status significantly improved patient following commands on Precedex. However chest tube was dislodged yesterday evening, now has bilateral pleural effusions left is more than right, appears large. Vent day 10 11/18: Off Precedex following commands upper extremities. But continues to fail C Pap trials due to tachypnea and low tidal volumes. Status post large-volume left thoracentesis yesterday with 1.2 L of old blood-tinged fluid removed. 11/19: Overnight agitated, requiring maximum dose Precedex 1.4 mcg per kg per hr and restraints. Currently heavily sedated. Chest x-ray shows increasing left effusion confirmed by ultrasound. We'll proceed with left pigtail catheter after consent. Continue to hold Coumadin due to hemorrhagic effusion 11/20: Left pigtail chest tube placed yesterday with a 30 mL output. Mentation improving now oriented follows commands. Requiring oxygen by nasal cannula. Slight increase in right effusion seen on chest x-ray 11/21: CT chest shows moderate left-sided pneumothorax. Eating continues to be slightly tachypneic but patient appears comfortable. Agitated requiring 4 point restraints. Also a liver enzymes are increasing most likely secondary to Dilantin. I will DC Dilantin and start him on Keppra 11/22 No acute events overnight. On Precedex drip. Afebrile. CXR this morning showed no evidence of PTX. 11/23 Patient is on Precedex 0.7 awake and alert on 2L oxygen with good sats. 11/24 Patient is off Precedex drip. Afebrile. Awake and alert. 11/25 Called by nurse as patient was diaphoretic, tachypneic, tachycardic, hypertensive minimally responsive and had O2 saturation in 80's he was subsequently intubated and placed on mechanical ventilation. CXR from earlier showed volume loss, consolidation RUL. 11/26 Patient is sedated with Diprivan and intubated. s/p bronch yesterday which showed mucous plugs on right CXR post bronch showed much improved aeration of right lung. Afebrile 11/27: Remains sedated with propofol, orally intubated on mechanical ventilation. 2 left-sided pigtail catheter is in place with posterior pigtail catheter having positive air leak. 11/28: Remains sedated, orally intubated on mechanical ventilation. One of the 2 pigtail catheters on the left side got dislodged in the morning by night stocker RN. Patient did not drop O2 sats. Second pigtail catheter which is still in place does not have any air leak currently. Stat chest x-ray obtained by mo which shows small apical pneumothorax on the left. Peak airway pressures 14, patient is not having any issues with hypotension and desaturation. We'll repeat chest x-ray later today to follow-up on pneumothorax and decide regarding placing another chest tube. 11/29 Patient is sedated with Diprivan and intubated. Afebrile. 11/30 The patient remains on heparin infusion for occlusive DVT left cephalic vein , and scattered clots left brachial and left axillary veins. Noted magnesium level was decreased 11/28. Repeat magnesium level pending this a.m., will replete as necessary. 12/01 Tmax 100.2 The patient currently off sedation, not set appropriately when questioned. The patient tolerated CPAP trials 4 hours yesterday. Left pigtail chest tube no leak remains on 40 cm of water pressure. Objective Vital Signs Date Time Temp Pulse Resp B/P Pulse Ox O2 Delivery O2 Flow Rate FiO2 12/01/16 07:23 50 12/01/16 07:23 94 12/01/16 06:00 69 12/01/16 04:00 98.0 15 109/56 Intake and Output 11/30/16 11/30/16 12/01/16 08:00 16:00 00:00 Intake Total 582 ml 610 ml 852 ml Output Total 300 ml 30 ml 280 ml Balance 282 ml 580 ml 572 ml Result Diagram: 12/01/16 0306 12/01/16 0306 Imaging Last Impressions Upper Extremity Ultrasound 11/29/16 Signed Impressions: Service Date/Time: Tuesday, November 29, 2016 11:59 - CONCLUSION: Thrombus as described above. Clot in the deep venous system is accommodation of occlusive and nonocclusive clot. Kun Mendoza MD FACR Chest X-Ray 11/29/16 Signed Impressions: Service Date/Time: Tuesday, November 29, 2016 07:29 - CONCLUSION: No change in bilateral pulmonary opacity. No evidence of pneumothorax. Endotracheal tube tip now 3 cm above the laura. Mathew Guerrero MD Chest CT 11/20/16 Signed Impressions: Service Date/Time: October 09:37 - CONCLUSION: 1. Left pneumothorax without tension 2. Small loculated effusion medial right base 3. Pericardial effusion as above Jimi Chavez MD Liver Ultrasound 11/17/16 0000 Signed Impressions: Service Date/Time: Thursday, November 17, 2016 15:58 - CONCLUSION: 1. Increased liver echogenicity characteristic of mild fatty infiltration or hepatocellular disease. 2. Trace free fluid in the abdomen. Pleural effusions. Mild gallbladder wall thickening. Chaka Campos MD Brain MRI 11/11/16 0000 Signed Impressions: Service Date/Time: Friday, November 11, 2016 12:53 - CONCLUSION: 1. 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 2. 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 The others would be consistent with punctate, remote areas of hemorrhage suggesting possibility of amyloid. Eitan Mendoza MD Head CT 11/09/16 0000 Signed Impressions: Service Date/Time: Wednesday, November 09, 2016 10:29 - CONCLUSION: Stable CT scan of the brain. Pradeep Rodriguez MD Chest Tube Insertion 11/08/16 0000 Signed Impressions: Service Date/Time: Tuesday, November 08, 2016 12:46 - CONCLUSION: Uncomplicated right chest tube placement as above. 1500 cc of fluid removed and sent for culture. Post CT scan reveals a large. pleural rind . The right lung may well not reexpanded. A.m. chest x-ray is pending. Cultures pending. Kun Mendoza MD FACR CT Angiography 11/07/16 0000 Signed Impressions: Service Date/Time: October 20:40 - CONCLUSION: 1. No pulmonary embolus. 2. Marked cardiac enlargement, especially the atria. 3. Bilateral effusions and atelectasis about the same on the left and considerably worse on the right. Right pneumothorax seen previously has resolved. Dhruv Foster MD Objective Remarks GENERAL: Patient is 81yo intubated and sedated. SKIN: Warm and dry. HEAD: Normocephalic. EYES: No scleral icterus. No injection or drainage. NECK: Supple, trachea midline. No JVD or lymphadenopathy. Orally intubated CARDIOVASCULAR: Regular rate and rhythm without murmurs, gallops, or rubs. RESPIRATORY: Breath sounds equal bilaterally. No accessory muscle use. GASTROINTESTINAL: Abdomen soft, non-tender, nondistended. MUSCULOSKELETAL: No cyanosis, + edema LUE. Neuro: Sedated, intubated Urinary Catheter: Yes Vital insert reason: Measure Accurate Output Date of Insertion: Nov 08, 2016 Side: Right Location: Internal, Jugular A/P Assessment and Plan Assessment: This is an 81-year-old male with history of prior recurrent right pleural effusions and COPD now presents with acute hypercarbic and hypoxic respiratory failure which has failed noninvasive positive pressure ventilation. Intubated and placed on mechanical ventilation. Covering COPD exacerbation, as well as healthcare associated pneumonia given his history of being on Levaquin at his longterm facility. He remains critically ill. Not sure that we will be able to get him through this hospitalization, and his recurrent respiratory failures are clearly making him more deconditioned every time he comes in the hospital. Despite this, daughter continues to request aggressive measures. Extubated 11/18/16. Reintubated 11/25.Now beginning CPAP trials. Plan by systems: Neurologic: Myoclonus-resolved Agitated delirium CO2 narcosis-resolved Metabolic encephalopathy Mild dementia -On Diprivan infusion for sedation. Use Ativan PRN for breakthrough seizures / myoclonus -EEG negative 11/10/15, 11/11/16 (moderate to severe encephalopathy, no seizure) -11/08 CT of the brain-no acute abnormality. 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 Question of amyloid -On Keppra 500 mg by mouth twice a day Respiratory: Acute hypercarbic and hypoxic respiratory failure-extubated - Reintubated 11/25 Recurrent right pleural effusion s/p chest tube placement-dislodged 11/17 New moderate left pneumothorax-resolved Right pneumothorax-resolved Large hemorrhagic left pleural effusion status post thoracentesis 11/17/16, pigtail chest tube 11/19/16 Healthcare associated pneumonia COPD exacerbation -Continue with vent support keep sat >92% -Bronchodilators, Mucomyst nebs -s/p Bronch 11/25: Mucous plugs on right CXR post bronch -much improved aeration of right lung Continue prednisone per Dr. Kitchen, -s/p anterior left anterior pigtail chest tube, continues on 40 cm of water suction --Status post left thoracentesis 11/17/16 with 1.2 L of hemorrhagic fluid removed. CXR/US shows reaccumulation of left pleural fluid. pigtail chest tube placed 11/19/1611/08 S/P CT guided IR drainage of recurrent right posterior pleural effusion, unable to perform pleurodesis, accidentally dislodged Monitor CT drainage. Patient has one pigtail catheter on the left side which has no air leak currently. One of the pigtail catheters got dislodged on 11/28 in a.m. -Gen. Surgery for trach planned for Saturday 12/02 Cardiovascular: Severe pulmonary hypertension (PASP 85 on Echo 10/08/16, repeat echo 11/19/16 PASP was 47) A. fib RVR Hypertension Moderate to severe TR Continue with BP meds- (captopril and atenolol 11/14/16) --Monitor HR and BP keep MAP>65mmHg --Repeat 2d echo 11/19/16 PASP was 47 compared to 85 on 10/18/16 --. Renal: Hypernatremia- resolved Monitor renal function, I/O's, electrolytes replacement per protocol. -On Lasix 20mg BID FEN/GI: Acute intravascular volume overload Acute protein calorie malnutritionsevere Elevated LFT's -Monitor LFT's...trending down -Glucerna 1.5 with goal rate 45ml/hr, no residuals noted -GI eval for PEG tube placement-scheduled for Saturday 12/02 Heme/ID: Healthcare associated pneumonia, staph aureus in sputum Leukocytosis- Afebrile Thrombocytopenia -Patient s/p Cefepime and Zithromax 11/08-11/13 and Rocephin 11/15-11/18 ID is following. Rocephin resumed for MSSA pneumonia on 11/26 -11/26 Sputum cx : Staph Aureus 11/08 blood -micrococcus 08/28 possible contaminant - Urine cultures-NGTD --Sputum cx 11/12/16 with staph aureus -Platelet count 91 today, patient continues on heparin infusion will continue to monitor Endocrine: Hyperglycemia of critical illness-resolved -- SSI, medium scale, every 6 hours discontinued 12/01 Prophylaxis: GI Prophylaxis Protonix 40 mg IV every 24 hours DVT Prophylaxis --SCDs Doppler US LUE: Occlusive and non-occlusive clot in cephalic vein, scattered clot in brachial and axillary vein On Heparin drip, Coumadin was placed on hold 11/29/16. Invasive procedures planned for Friday, plan to hold infusion 0600 on Friday Lines: Peripheral IVsx 2. central line Vital Dispo: Palliative care is following. Discussed with [employer]US [employer] DISPOSAL AGENT at bedside This patient remains critically ill with one or more organ systems which are or may become a threat to life. I have spent in excess of 30 minutes discontinuously in the care and management of this patient. This time is exclusive of procedures, and includes, but is not limited to, evaluation of the patient, review of the medical record, discussions with family, consultants, nursing staff, or respiratory therapy, and documentation in the medical record. Physician Kathrine Childers MD Dec 01, 2016 10:25
--- NOTE | 2016-12-01 10:33 | EKG ---
Date Performed: 12/01/2016 Time Performed: 08:53:54 PTAGE: 81 years EKG: ATRIAL FIBRILLATION BORDERLINE LEFT AXIS DEVIATION RIGHT BUNDLE BRANCH BLOCK ABNORMAL ECG C ompared to prior tracing no significant change PREVIOUS TRACING : 11/10/2016 10.54 DOCTOR: Jw Monterroso Interpretating Date/Time 12/01/2016 10:27:13
--- NOTE | 2016-12-01 13:20 | HHI.GIFU ---
Subjective Remarks patient open eyes and moving extremities, still intubated Objective Vitals I&O Vital Signs Date Time Temp Pulse Resp B/P Pulse Ox O2 Delivery O2 Flow Rate FiO2 12/01/16 10:22 97 45 12/01/16 07:23 50 12/01/16 07:23 94 50 12/01/16 06:00 69 12/01/16 04:02 97 50 12/01/16 04:00 40 12/01/16 04:00 98.0 69 15 109/56 95 12/01/16 04:00 69 12/01/16 02:00 69 12/01/16 00:00 67 12/01/16 00:00 40 12/01/16 00:00 98.9 67 25 106/54 95 11/30/16 22:58 96 50 11/30/16 22:00 75 11/30/16 20:00 76 11/30/16 20:00 40 11/30/16 20:00 98.2 76 19 115/55 99 11/30/16 16:00 40 11/30/16 16:00 100.2 73 22 115/57 96 11/30/16 15:03 95 50 I/O 11/30/16 11/30/16 11/30/16 12/01/16 12/01/16 12/01/16 07:00 15:00 23:00 07:00 15:00 23:00 Intake Total 582 ml 610 ml 852 ml 625 ml Output Total 300 ml 30 ml 280 ml 230 ml Balance 282 ml 580 ml 572 ml 395 ml IV Total 222 ml 60 ml 202 ml 93 ml Tube Feeding 360 ml 550 ml 530 ml 472 ml Other 120 ml 60 ml Output Urine Total 300 ml 30 ml 280 ml 230 ml Chest Tube Drainage Total 0 ml 0 ml Laboratory Laboratory Tests Test 11/30/16 11/30/16 12/01/16 14:00 21:35 03:06 Activated Partial 37.9 44.7 50.4 Thromboplast Time White Blood Count 9.1 Red Blood Count 3.23 Hemoglobin 10.7 Hematocrit 31.8 Mean Corpuscular Volume 98.3 Mean Corpuscular Hemoglobin 33.0 Mean Corpuscular Hemoglobin 33.6 Concent Red Cell Distribution Width 14.9 Platelet Count 91 Mean Platelet Volume 8.8 Prothrombin Time 12.6 Prothromb Time International 1.1 Ratio Sodium Level 143 Potassium Level 3.9 Chloride Level 100 Carbon Dioxide Level 39.0 Anion Gap 4 Blood Urea Nitrogen 18 Creatinine 0.50 Estimat Glomerular Filtration 160 Rate Random Glucose 120 Calcium Level 8.6 Phosphorus Level 2.7 Magnesium Level 2.1 Total Bilirubin 0.4 Aspartate Amino Transf 39 (AST/SGOT) Alanine Aminotransferase 47 (ALT/SGPT) Alkaline Phosphatase 156 Total Protein 5.4 Albumin 1.9 Physical Exam HEENT: more awake on vent; normocephalic; atraumatic; no jaundice. NECK: Neck is supple, CHEST: course lung sounds CARDIAC: Regular rate and rhythm with no murmur gallop or rubs. ABDOMEN: Soft, nondistended,no hepatosplenomegaly; bowel sounds are present in all four quadrants. EXTREMITIES: ecchymoses BUE, BLE. SKIN: Normal; no rash; no jaundice. [employer] M[employer]ER: open eyes and more awake on vent. Assessment and Plan Plan ASSESSMENT: - dysphagia. on vent. - need for PEG tube - elevated APTT, 148, has DVT per US doppler PLAN: - PEG tube placement friday - hold heparin 0600 Friday - no tube feed after midnight Friday i talked to Dr. Gaspar and she confirmed the need for PEG tube tomorrow again. Thomas Caballero MD Dec 01, 2016 13:19
[2016-12-01] MEDS: cefTRIAXone INJ 1,000 MG in SODIUM CHLORIDE 0.9% INJ 100 ML IV SCH (14:42)
[2016-12-01 23:57] LABS: APTT (PATIENT) 42.9 SEC (24.3-30.1)
[2016-12-02] VITALS (20 sets, daily range): BP systolic 103–185; BP diastolic 55–77; PULSE 65–78; RESP 13–25; TEMP 97.9–99.9; O2SAT 94–100
[2016-12-02] MEDS: PROPOFOL 1000 MG/100 ML INJ 100 ML IV SCH ×3 (00:21→21:25)
[2016-12-02 04:48] LABS: HEMATOCRIT 30.2 % (39.0-51.0); MEAN CELL VOLUME 98.9 FL (80.0-100.0); MEAN CORPUSCULAR HGB CONC 33.4 % (32.0-36.0); PLATELET COUNT 98 TH/MM3 (150-450); RED BLOOD COUNT 3.05 MIL/MM3 (4.50-5.90); RED CELL DISTRIBUTION WIDTH 15.1 % (11.6-17.2); WHITE BLOOD COUNT 8.4 TH/MM3 (4.0-11.0)
[2016-12-02 04:51] LABS: REVIEW FLAG FINAL
[2016-12-02 05:15] LABS: BICARBONATE 38.8 MEQ/L (21.0-32.0); MAGNESIUM 2.1 MG/DL (1.5-2.5); POTASSIUM 4.1 MEQ/L (3.5-5.1)
[2016-12-02 08:29] LABS: PROTHROMBIN TIME - PATIENT 11.2 SEC (9.8-11.6)
[2016-12-02] MEDS: CHLORHEXIDINE 0.12% (ORAL KIT) 15 ML CUP MT SCH ×2 (08:31→21:21)
[2016-12-02] MEDS: FUROSEMIDE 20 MG TAB PO SCH ×2 (08:32→18:20)
[2016-12-02] MEDS: SODIUM CHLORIDE 0.9% FLUSH 5 ML FLUSH IVF SCH (08:32)
[2016-12-02] MEDS: predniSONE 10 MG TAB PO SCH ×2 (08:32→21:30)
[2016-12-02] MEDS: SODIUM CHLORIDE 0.9% FLUSH 5 ML FLUSH FLUSH SCH ×2 (08:32→21:21)
[2016-12-02] MEDS: levETIRAcetam 500 MG TAB PO SCH ×2 (08:32→21:30)
[2016-12-02] MEDS: ATENOLOL 50 MG TAB PO SCH ×2 (08:32→21:30)
--- NOTE | 2016-12-02 10:16 | HHI.CCPN ---
Subjective Remarks/Hospital Course This is an 81-year-old male who has had multiple readmissions over the past few months for a recurrent right-sided pleural effusion. [facility] with recurrent right-sided pleural effusion as well as hypoxia and somnolence. He was found to have significant hypercarbia and a PCO2 in the 90s. He was initially placed on BiPAP and admitted to the [facility]. He became more somnolent and his oxygen saturation began to decline. At this point a critical care medicine is consulted to evaluate and manage his hypercarbic respiratory failure. Because he is failed his trial of noninvasive positive pressure ventilation, we will move towards intubating the patient. I evaluated the patient and he is essentially unresponsive and obtunded and only minimally withdrawing to pain. I can obtain no additional history from the patient. Subjective: 11/09: Early this a.m. at approximately 06:30 the patient was noted to have a grand mal seizure lasting approximately 60 seconds followed by a small tonic- clonic seizure lasting 30 seconds involving the lower extremities. The patient received Ativan 2 mg with cessation of seizure activity. Stat CT of the brain without contrast was obtained showed no acute abnormality. EEG was obtained previously awaiting results. Prior to the event the patient was noted to be on a fentanyl infusion at approximately 250 mcg/h. The patient was noted to be a GCS 10T, squeezing my hand. 11/10: The patient was noted to have multiple seizures requiring interventions with IV Ativan. Described as tonic-clonic in nature with eyes rolled back in the head. Gross motor movement shaking 4 extremities. Today the patient was noted to have a positive growth and blood cultures. WBC count elevated. Ammonia level was drawn less than 10, lactate was noted to be 2.2 this morning. Pleural fluid culture negative growth to date. 11/11: On stimulation patient continues to have jerking movement of all extremities. EEG negative for seizures. Check MRI today. Dr. Kirkland is neurology. Remains on 2 mcg/min of Levophed 11/12: Per neurologist, patient had witnessed with tonic convulsions started over right arm and propagated to left UE and both LE with fluttering of the eyes and upward gaze.Loaded with Dilantin iv infusion and a maintenance dose of 100mg Q8h, Stat EEG negative for seizures. Its unclear to me whether it is seizure or myoclonus 11/13: No change in neuro status. Continues to have jerking movements off lower extremity when stimulated. EEG 2 have been negative for seizures. We'll hold sedation for neuro exam 11/14: On sedation hold opens eyes. Appears to follow commands and upper extremity. Still has some tremulousness of the extremities. Remains off pressors 11/15: Remains on Precedex intermittently following commands for RN. Placed on CPAP tolerating well. No evidence of myoclonus now 11/16: On 1.1 mcg/kg/hr of Precedex. No spontaneous eye opening but moves all extremities spontaneously. Not following commands will reduce Precedex, and start weaning trials 11/17: Mental status significantly improved patient following commands on Precedex. However chest tube was dislodged yesterday evening, now has bilateral pleural effusions left is more than right, appears large. Vent day 10 11/18: Off Precedex following commands upper extremities. But continues to fail C Pap trials due to tachypnea and low tidal volumes. Status post large-volume left thoracentesis yesterday with 1.2 L of old blood-tinged fluid removed. 11/19: Overnight agitated, requiring maximum dose Precedex 1.4 mcg per kg per hr and restraints. Currently heavily sedated. Chest x-ray shows increasing left effusion confirmed by ultrasound. We'll proceed with left pigtail catheter after consent. Continue to hold Coumadin due to hemorrhagic effusion 11/20: Left pigtail chest tube placed yesterday with a 30 mL output. Mentation improving now oriented follows commands. Requiring oxygen by nasal cannula. Slight increase in right effusion seen on chest x-ray 11/21: CT chest shows moderate left-sided pneumothorax. Eating continues to be slightly tachypneic but patient appears comfortable. Agitated requiring 4 point restraints. Also a liver enzymes are increasing most likely secondary to Dilantin. I will DC Dilantin and start him on Keppra 11/22 No acute events overnight. On Precedex drip. Afebrile. CXR this morning showed no evidence of PTX. 11/23 Patient is on Precedex 0.7 awake and alert on 2L oxygen with good sats. 11/24 Patient is off Precedex drip. Afebrile. Awake and alert. 11/25 Called by nurse as patient was diaphoretic, tachypneic, tachycardic, hypertensive minimally responsive and had O2 saturation in 80's he was subsequently intubated and placed on mechanical ventilation. CXR from earlier showed volume loss, consolidation RUL. 11/26 Patient is sedated with Diprivan and intubated. s/p bronch yesterday which showed mucous plugs on right CXR post bronch showed much improved aeration of right lung. Afebrile 11/27: Remains sedated with propofol, orally intubated on mechanical ventilation. 2 left-sided pigtail catheter is in place with posterior pigtail catheter having positive air leak. 11/28: Remains sedated, orally intubated on mechanical ventilation. One of the 2 pigtail catheters on the left side got dislodged in the morning by night club manager RN. Patient did not drop O2 sats. Second pigtail catheter which is still in place does not have any air leak currently. Stat chest x-ray obtained by ok which shows small apical pneumothorax on the left. Peak airway pressures 14, patient is not having any issues with hypotension and desaturation. We'll repeat chest x-ray later today to follow-up on pneumothorax and decide regarding placing another chest tube. 11/29 Patient is sedated with Diprivan and intubated. Afebrile. 11/30 The patient remains on heparin infusion for occlusive DVT left cephalic vein , and scattered clots left brachial and left axillary veins. Noted magnesium level was decreased 11/28. Repeat magnesium level pending this a.m., will replete as necessary. 12/01 Tmax 100.2 The patient currently off sedation, not set appropriately when questioned. The patient tolerated CPAP trials 4 hours yesterday. Left pigtail chest tube no leak remains on 40 cm of water pressure. 12/02 Tmax 99.4. Heparin infusion held at 6 AM this morning in anticipation of tracheostomy and PEG placement. Tube feeds have been off since 12 midnight consents are noted in the chart. The patient was noted to remain on CPAP for approximately 4 hours yesterday without difficulty. Objective Vital Signs Date Time Temp Pulse Resp B/P Pulse Ox O2 Delivery O2 Flow Rate FiO2 12/02/16 08:18 97 40 12/02/16 06:00 68 12/02/16 04:00 97.9 13 119/56 Intake and Output 12/01/16 12/01/16 12/02/16 08:00 16:00 00:00 Intake Total 625 ml 830 ml 775 ml Output Total 230 ml 340 ml 300 ml Balance 395 ml 490 ml 475 ml Result Diagram: 12/02/16 0303 12/02/16 0303 Imaging Last Impressions Upper Extremity Ultrasound 11/29/16 0000 Signed Impressions: Service Date/Time: Tuesday, November 29, 2016 11:59 - CONCLUSION: Thrombus as described above. Clot in the deep venous system is accommodation of occlusive and nonocclusive clot. Kun Mendoza MD FACR Chest X-Ray 11/29/16 0000 Signed Impressions: Service Date/Time: Tuesday, November 29, 2016 07:29 - CONCLUSION: No change in bilateral pulmonary opacity. No evidence of pneumothorax. Endotracheal tube tip now 3 cm above the laura. Mathew Guerrero MD Chest CT 11/20/16 0000 Signed Impressions: Service Date/Time: October 09:37 - CONCLUSION: 1. Left pneumothorax without tension 2. Small loculated effusion medial right base 3. Pericardial effusion as above Jimi Chavez MD Liver Ultrasound 11/17/16 0000 Signed Impressions: Service Date/Time: Thursday, November 17, 2016 15:58 - CONCLUSION: 1. Increased liver echogenicity characteristic of mild fatty infiltration or hepatocellular disease. 2. Trace free fluid in the abdomen. Pleural effusions. Mild gallbladder wall thickening. Chaka Campos MD Brain MRI 11/11/16 0000 Signed Impressions: Service Date/Time: Friday, November 11, 2016 12:53 - CONCLUSION: 1. 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 2. 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 The others would be consistent with punctate, remote areas of hemorrhage suggesting possibility of amyloid. Eitan Mendoza MD Head CT 11/09/16 0000 Signed Impressions: Service Date/Time: Wednesday, November 09, 2016 10:29 - CONCLUSION: Stable CT scan of the brain. Pradeep Rodriguez MD Chest Tube Insertion 11/08/16 0000 Signed Impressions: Service Date/Time: Tuesday, November 08, 2016 12:46 - CONCLUSION: Uncomplicated right chest tube placement as above. 1500 cc of fluid removed and sent for culture. Post CT scan reveals a large. pleural rind . The right lung may well not reexpanded. A.m. chest x-ray is pending. Cultures pending. Kun Mendoza MD FACR CT Angiography 11/07/16 0000 Signed Impressions: Service Date/Time: , November 07, 2016 20:40 - CONCLUSION: 1. No pulmonary embolus. 2. Marked cardiac enlargement, especially the atria. 3. Bilateral effusions and atelectasis about the same on the left and considerably worse on the right. Right pneumothorax seen previously has resolved. Dhruv Foster MD Objective Remarks GENERAL: Patient is 81yo intubated and sedated. SKIN: Warm and dry. HEAD: Normocephalic. EYES: No scleral icterus. No injection or drainage. NECK: Supple, trachea midline. No JVD or lymphadenopathy. Orally intubated CARDIOVASCULAR: Regular rate and rhythm without murmurs, gallops, or rubs. RESPIRATORY: Breath sounds equal bilaterally. No accessory muscle use. GASTROINTESTINAL: Abdomen soft, non-tender, nondistended. MUSCULOSKELETAL: No cyanosis, + edema LUE. Neuro: Sedated, intubated Urinary Catheter: Yes Date of Insertion: Nov 08, 2016 A/P Assessment and Plan Assessment: This is an 81-year-old male with history of prior recurrent right pleural effusions and COPD now presents with acute hypercarbic and hypoxic respiratory failure which has failed noninvasive positive pressure ventilation. Intubated and placed on mechanical ventilation. Covering COPD exacerbation, as well as healthcare associated pneumonia given his history of being on Levaquin at his [facility]. He remains critically ill. Not sure that we will be able to get him through this hospitalization, and his recurrent respiratory failures are clearly making him more deconditioned every time he comes in the hospital. Despite this, daughter continues to request aggressive measures. Extubated 11/18/16. Reintubated 11/25.Now beginning CPAP trials. Plan by systems: Neurologic: Myoclonus-resolved Agitated delirium CO2 narcosis-resolved Metabolic encephalopathy Mild dementia -On Diprivan infusion, currently off for sedation. Patient nodding head appropriately to questions. Use Ativan PRN for breakthrough seizures /myoclonus -EEG negative 11/10/15, 11/11/16 (moderate to severe encephalopathy, no seizure) -11/08 CT of the brain-no acute abnormality. 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 Question of amyloid -On Keppra 500 mg by mouth twice a day Respiratory: Acute hypercarbic and hypoxic respiratory failure-extubated - Reintubated 11/25 Recurrent right pleural effusion s/p chest tube placement-dislodged 11/17 New moderate left pneumothorax-resolved Right pneumothorax-resolved Large hemorrhagic left pleural effusion status post thoracentesis 11/17/16, pigtail chest tube 11/19/16 Healthcare associated pneumonia COPD exacerbation -Continue with vent support keep sat >92% -Bronchodilators, Mucomyst nebs -s/p Bronch 11/25: Mucous plugs on right CXR post bronch -much improved aeration of right lung Continue prednisone per Dr. Kitchen, -s/p anterior left anterior pigtail chest tube, continues on 40 cm of water suction --Status post left thoracentesis 11/17/16 with 1.2 L of hemorrhagic fluid removed. CXR/US shows reaccumulation of left pleural fluid. pigtail chest tube placed 11/19/1611/08 S/P CT guided IR drainage of recurrent right posterior pleural effusion, unable to perform pleurodesis, accidentally dislodged Monitor CT drainage. Patient has one pigtail catheter on the left side which has no air leak currently on 20 cm of water pressure, no drainage. One of the pigtail catheters got dislodged on 11/28 in a.m. -Gen. Surgery for trach planned for Saturday 12/02 Cardiovascular: Severe pulmonary hypertension (PASP 85 on Echo 10/08/16, repeat echo 11/19/16 PASP was 47) A. fib RVR Hypertension Moderate to severe TR Continue with BP meds- (captopril and atenolol 11/14/16) --Monitor HR and BP keep MAP>65mmHg --Repeat 2d echo 11/19/16 PASP was 47 compared to 85 on 10/18/16 Renal: Hypernatremia- resolved Monitor renal function, I/O's, electrolytes replacement per protocol. -On Lasix 20mg BID FEN/GI: Acute intravascular volume overload Acute protein calorie malnutritionsevere Elevated LFT's -Monitor LFT's...trending down -Glucerna 1.5 with goal rate 45ml/hr, no residuals noted, currently off for procedure placement today -GI eval for PEG tube placement-scheduled for Saturday 12/02 Heme/ID: Healthcare associated pneumonia, staph aureus in sputum Leukocytosis- Afebrile Thrombocytopenia -Patient s/p Cefepime and Zithromax 11/08-11/13 and Rocephin 11/15-11/18 ID is following. Rocephin resumed for MSSA pneumonia on 11/26 -11/26 Sputum cx : Staph Aureus 11/08 blood -micrococcus 08/28 possible contaminant - Urine cultures-NGTD --Sputum cx 11/12/16 with staph aureus -Platelet count 91 today, patient continues on heparin infusion will continue to monitor Endocrine: Hyperglycemia of critical illness-resolved -- SSI, medium scale, every 6 hours discontinued 12/01 Prophylaxis: GI Prophylaxis Protonix 40 mg IV every 24 hours DVT Prophylaxis --SCDs Doppler US LUE: Occlusive and non-occlusive clot in cephalic vein, scattered clot in brachial and axillary vein On Heparin drip, Coumadin was placed on hold 11/29/16. Invasive procedures planned for today . Lines: Peripheral IVsx 2. central line if indicated Vital Dispo: Palliative care is following. Discussed with ENTERTAINMENT MUSICIAN at bedside This patient remains critically ill with one or more organ systems which are or may become a threat to life. I have spent in excess of 32 minutes discontinuously in the care and management of this patient. This time is exclusive of procedures, and includes, but is not limited to, evaluation of the patient, review of the medical record, discussions with family, consultants, nursing staff, or respiratory therapy, and documentation in the medical record. Physician Kathrine Childers MD Dec 02, 2016 10:16
[2016-12-02] MEDS ORDERED: MIDAZOLAM HCL 2 MG/2 ML VIAL IV PUSH ONE (12:00)
[2016-12-02] MEDS ORDERED: ROCURONIUM INJ 50 MG/5 ML VIAL IV PUSH ONE (12:00)
[2016-12-02] MEDS ORDERED: fentaNYL CITRATE 250 MCG/5 ML AMP IV PUSH ONE (12:00)
[2016-12-02] MEDS: cefTRIAXone INJ 1,000 MG in SODIUM CHLORIDE 0.9% INJ 100 ML IV SCH (12:03)
--- NOTE | 2016-12-02 12:16 | GIPROC ---
[facility] [address] [facility]. [facility], [id number] EGD WITH PEG PROCEDURE REPORT EXAM DATE: 12/02/2016 PATIENT NAME: Maximus Duncan MR#: [id number] BIRTHDATE: 1935 ATTENDING: Thomas Caballero MD ORDER #: [id number] LABOR CONCILIATOR: Noemi Morgan and Shahbaz Seo STATUS: inpatient INDICATIONS: The patient is a 81 yr old male here for an EGD with PEG due to dysphagia PROCEDURE PERFORMED: EGD with biopsy EGD with PEG placement MEDICATIONS: None and Per Anesthesia. TOPICAL ANESTHETIC: none CONSENT: The patient understands the risks and benefits of the procedure and understands that these risks include, but are not limited to: sedation, allergic reaction, infection, perforation and/or bleeding. Alternative means of evaluation and treatment include, among others: physical exam, x-rays, and/or surgical intervention. The patient elects to proceed with this endoscopic procedure. medical equipment was checked for proper function. Hand hygiene and appropriate measures for infection prevention was taken. After the risks, benefits and alternatives of the procedure were thoroughly explained, Informed consent was verified, confirmed and timeout was successfully executed by the treatment team. The patient was anesthetized with topical anesthesia and the Pentax [id number] endoscope was introduced through the mouth and advanced to the second portion of the duodenum. The instrument was slowly withdrawn as the mucosa was fully examined. gastritis Bx from antrum The stomach was then inflated with air, and by a combination of transillumination and manual palpation, the site for the gastrostomy tube placement was selected and marked on the anterior abdominal wall. The skin of the anterior abdomen was surgically prepped and draped with sterile towels. Utilizing strict sterile technique, the selected site was then anesthetized with 1% xylocaine by injection into the skin and subcutaneous tissue. A 1 cm incision was made through the skin and subcutaneous tissue, and the needle/cannula assembly was then passed through the abdominal wall and through the anterior wall of the stomach, maintaining visualization with the endoscope. A snare device previously placed through the instrument channel was then opened and placed around the cannula, the needle was removed, and the insertion wire was passed through the cannula and into the stomach lumen. The snare was then loosened from the cannula, and repositioned to snare the insertion wire. The snare was then pulled up to the endoscope distal tip, and the scope was then withdrawn bringing with it the snare and insertion wire. The insertion wire was then released from the snare, and then loop-attached to the BS size 20 fr gastrostomy tube. Using the "pull technique", the G-tube was then pulled into place by traction on the insertion wire at the abdominal wall end. The G-tube insertion site was then cleansed once again, and the external bolster was placed over the tube to secure it to the abdominal wall. A sterile dressing was then applied, and the procedure terminated. no abnormalities The gastroscope was then slowly withdrawn and removed. ADVERSE EVENT: There were no complications. IMPRESSIONS: No abnormalities RECOMMENDATIONS: 1. Anti-reflux regimen 2. Continue PPI REPEAT EXAM: Thomas Caballero MD eSigned: Thomas Caballero MD 12/02/2016 12:15 PM cc: PATIENT NAME: Maximus Duncan MR#: [id number]
--- NOTE | 2016-12-02 12:28 | RADRPT ---
EXAM DATE/TIME: 12/02/2016 10:49 [facility] COMPARISON: No previous studies available for comparison. INDICATIONS : Right arm swelling. MEDICAL HISTORY : Hypercholesterolemia. Congestive heart failure. Chronic obstructive pulmonary disease. Cerebrovascula r accident. Anticoagulant therapy, Warfarin. Afib. Hypertension. Skin cancer. Seizures. SURGICAL HISTORY : Thoracentesis. ENCOUNTER: Subsequent ACUITY: 1 day PAIN SCORE: Non-responsive LOCATION: Right arm. FINDINGS: Nonocclusive thrombus is identified in right jugular vein. There is decreased compressibility however flow remains present. The decreased compressibility with evidence of intraluminal thrombus is identified in the mid to dist al brachial vein and throughout the entire course of the cephalic vein. CONCLUSION: Positive DVT with nonocclusive thrombus in the right jugular vein and occlusive thrombus in the right brachial and cephalic veins. Pop Prescott MD on December 02, 2016 at 12:23 Board Certified Radiologist. This report was verified electronically.
--- NOTE | 2016-12-02 13:23 | PD.PROCEDR ---
Procedure Note Procedure Procedure: Fiberoptic Bronchoscopy Diagnosis: Failure to wean Indications: Tracheostomy and obtain bronchial washing(BAL) Consent: Obtained from daughter Anesthesia: see [facility] Description of the Procedure: The patient was sedated and mechanically ventilated. The patient was placed on 100% FIO2 and a volume control mode of ventilation. The fiberoptic bronchoscopy was inserted via tracheostomy. The trachea, right and left mainstem bronchi, and sub-segmental bronchi were evaluated. The endobronchial anatomy was normal. Findings: Normal findings BAL samples: 2 The patient tolerated the procedure well with no hemodynamic instability or hypoxia. There were no immediate complications noted. At the conclusion of the procedure, the patient was placed back on their pre-procedure ventilatory settings. There was minimal EBL. A chest x-ray has been ordered. I personally performed the procedure. Kathrine Gaspar MD Dec 02, 2016 13:23
--- NOTE | 2016-12-02 13:28 | RADRPT ---
EXAM DATE/TIME: 12/02/2016 13:02 [facility] COMPARISON: CHEST SINGLE AP, December 01, 2016, 4:35. INDICATIONS : Post trach placement. MEDICAL HISTORY : Hypertension. Cardiovascular disease. Congestive heart failure. SURGICAL HISTORY : None. ENCOUNTER: Subsequent ACUITY: 2 weeks PAIN SCORE: Non-responsive. LOCATION: Bilateral chest FINDINGS: Consolidation within both lower lobes and bilateral effusions right greater than left increased on th e right. Tracheostomy tube is present, and a left-sided chest tube is noted. There is cardiomegaly. O sseous structures are intact. A left-sided pneumothorax is noted best seen at the left apex. CONCLUSION: Worsening appearance of the chest. A tracheostomy tube is noted, and left-sided pneumothorax is prese nt. Don Soto MD on December 02, 2016 at 13:25 Board Certified Radiologist. This report was verified electronically.
--- NOTE | 2016-12-02 13:50 | HHI.GIFU ---
Subjective Remarks still sedated and intubated, open eyes from time to time Objective Vitals I&O Vital Signs Date Time Temp Pulse Resp B/P Pulse Ox O2 Delivery O2 Flow Rate FiO2 12/02/16 12:45 100 100 12/02/16 10:00 68 12/02/16 08:18 97 40 12/02/16 08:00 40 12/02/16 08:00 65 12/02/16 06:00 68 12/02/16 05:20 99 40 12/02/16 04:00 67 12/02/16 04:00 45 12/02/16 04:00 97.9 67 13 119/56 96 12/02/16 03:32 97 45 12/02/16 02:00 66 12/02/16 00:46 96 45 12/02/16 00:00 45 12/02/16 00:00 97.9 74 25 103/55 94 12/02/16 00:00 66 12/01/16 22:21 93 45 12/01/16 22:00 66 12/01/16 21:00 45 12/01/16 20:00 74 12/01/16 20:00 99.4 74 17 115/59 94 12/01/16 16:00 98.9 74 18 104/64 96 12/01/16 16:00 40 12/01/16 15:32 99 45 12/01/16 13:56 94 45 I/O 12/01/16 12/01/16 12/01/16 12/02/16 12/02/16 12/02/16 07:00 15:00 23:00 07:00 15:00 23:00 Intake Total 625 ml 830 ml 775 ml 100 ml Output Total 230 ml 340 ml 300 ml 240 ml Balance 395 ml 490 ml 475 ml -140 ml IV Total 93 ml 55 ml 248 ml 100 ml Tube Feeding 472 ml 675 ml 407 ml Tube Irrigant 100 ml Other 60 ml 120 ml Output Urine Total 230 ml 300 ml 300 ml 240 ml Chest Tube Drainage Total 40 ml 0 ml # Bowel Movements 1 Laboratory Laboratory Tests Test 12/01/16 12/01/16 12/02/16 12/02/16 16:45 22:53 03:03 08:05 Activated Partial 41.0 42.9 Thromboplast Time White Blood Count 8.4 Red Blood Count 3.05 Hemoglobin 10.1 Hematocrit 30.2 Mean Corpuscular Volume 98.9 Mean Corpuscular Hemoglobin 33.0 Mean Corpuscular Hemoglobin 33.4 Concent Red Cell Distribution Width 15.1 Platelet Count 98 Mean Platelet Volume 9.6 Sodium Level 144 Potassium Level 4.1 Chloride Level 101 Carbon Dioxide Level 38.8 Anion Gap 4 Blood Urea Nitrogen 21 Creatinine 0.40 Estimat Glomerular Filtration 206 Rate Random Glucose 106 Calcium Level 8.5 Phosphorus Level 2.8 Magnesium Level 2.1 Prothrombin Time 11.2 Prothromb Time International 1.0 Ratio Physical Exam HEENT: more awake on vent; normocephalic; atraumatic; no jaundice. NECK: Neck is supple, CHEST: course lung sounds CARDIAC: Regular rate and rhythm with no murmur gallop or rubs. ABDOMEN: Soft, nondistended,no hepatosplenomegaly; bowel sounds are present in all four quadrants. EXTREMITIES: ecchymoses BUE, BLE. SKIN: Normal; no rash; no jaundice. 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 on vent. - PEG tube was place today, EGD showed gastritis - elevated APTT, 148, has DVT per US Doppler PLAN: - NPO for 6 hours then may start using PEG Thomas Caballero MD Dec 02, 2016 13:50
[2016-12-02 20:44] LABS: APTT (PATIENT) 35.4 SEC (24.3-30.1)
[2016-12-02] MEDS: HEPARIN-D5W INJ 250 ML IV SCH (21:24)
[2016-12-02] MEDS: hydrALAZINE HCL 20 MG/ML VIAL IV PUSH PRN (23:06)
[2016-12-03] VITALS (17 sets, daily range): BP systolic 158–175; BP diastolic 70–75; PULSE 74–85; RESP 14–22; TEMP 98.2–99.4; O2SAT 95–100
[2016-12-03 03:01] LABS: MEAN CELL VOLUME 99.4 FL (80.0-100.0); MEAN CORPUSCULAR HEMOGLOBIN 32.9 PG (27.0-34.0); MEAN CORPUSCULAR HGB CONC 33.1 % (32.0-36.0); PLATELET COUNT 119 TH/MM3 (150-450); RED BLOOD COUNT 3.22 MIL/MM3 (4.50-5.90); RED CELL DISTRIBUTION WIDTH 14.8 % (11.6-17.2); REVIEW FLAG FINAL; WHITE BLOOD COUNT 7.6 TH/MM3 (4.0-11.0)
[2016-12-03 03:13] LABS: PROTHROMBIN TIME - PATIENT 10.9 SEC (9.8-11.6)
[2016-12-03 03:46] LABS: BICARBONATE 37.3 MEQ/L (21.0-32.0); MAGNESIUM 2.1 MG/DL (1.5-2.5); POTASSIUM 4.3 MEQ/L (3.5-5.1)
[2016-12-03] MEDS: LABETALOL HCL 100 MG/20 ML VIAL IV PUSH PRN ×2 (04:41→11:02)
--- NOTE | 2016-12-03 05:02 | RADRPT ---
EXAM DATE/TIME: 12/03/2016 03:42 [place] COMPARISON: CHEST SINGLE AP, December 02, 2016, 13:02. INDICATIONS : Respiratory distress. MEDICAL HISTORY : Hypertension. Cardiovascular disease. Congestive heart failure. SURGICAL HISTORY : None. ENCOUNTER: Subsequent ACUITY: 2 weeks PAIN SCORE: Non-responsive. LOCATION: Bilateral chest FINDINGS: A single view of the chest demonstrates unchanged position of tracheostomy tube. Left-sided chest tub e is again seen in stable position. The left apical pneumothorax has decreased in prominence measurin g 1.2 cm of pleural separation. Bibasilar and right perihilar consolidation. Moderate right and small left pleural effusion. Heart enlarged. Osseous structures are intact. CONCLUSION: 1. Bibasilar and right perihilar consolidation. 2. Cardiomegaly. 3. Decreasing small left apical pneumothorax. Dre Florentino MD on December 03, 2016 at 4:57 Board Certified Radiologist. This report was verified electronically.
[2016-12-03] MEDS: PROPOFOL 1000 MG/100 ML INJ 100 ML IV SCH ×2 (06:35→17:54)
[2016-12-03] MEDS: SODIUM CHLORIDE 0.9% FLUSH 5 ML FLUSH IVF SCH (08:43)
[2016-12-03] MEDS: SODIUM CHLORIDE 0.9% FLUSH 5 ML FLUSH FLUSH SCH ×2 (08:43→21:00)
[2016-12-03] MEDS: ATENOLOL 50 MG TAB PO SCH ×2 (08:44→21:27)
[2016-12-03] MEDS: predniSONE 10 MG TAB PO SCH ×2 (08:44→21:27)
[2016-12-03] MEDS: CHLORHEXIDINE 0.12% (ORAL KIT) 15 ML CUP MT SCH ×2 (08:44→21:27)
[2016-12-03] MEDS: FUROSEMIDE 20 MG TAB PO SCH ×2 (08:44→17:54)
[2016-12-03] MEDS: levETIRAcetam 500 MG TAB PO SCH ×2 (08:44→21:27)
[2016-12-03] MEDS: hydrALAZINE HCL 20 MG/ML VIAL IV PUSH PRN (09:41)
--- NOTE | 2016-12-03 09:57 | HHI.CCPN ---
Subjective Remarks/Hospital Course This is an 81-year-old male who has had multiple readmissions over the past few months for a recurrent right-sided pleural effusion. He represents from his intermediate facility with recurrent right-sided pleural effusion as well as hypoxia and somnolence. He was found to have significant hypercarbia and a PCO2 in the 90s. He was initially placed on BiPAP and admitted to the [facility]. He became more somnolent and his oxygen saturation began to decline. At this point a critical care medicine is consulted to evaluate and manage his hypercarbic respiratory failure. Because he is failed his trial of noninvasive positive pressure ventilation, we will move towards intubating the patient. I evaluated the patient and he is essentially unresponsive and obtunded and only minimally withdrawing to pain. I can obtain no additional history from the patient. Subjective: 11/09: Early this a.m. at approximately 06:30 the patient was noted to have a grand mal seizure lasting approximately 60 seconds followed by a small tonic- clonic seizure lasting 30 seconds involving the lower extremities. The patient received Ativan 2 mg with cessation of seizure activity. Stat CT of the brain without contrast was obtained showed no acute abnormality. EEG was obtained previously awaiting results. Prior to the event the patient was noted to be on a fentanyl infusion at approximately 250 mcg/h. The patient was noted to be a GCS 10T, squeezing my hand. 11/10: The patient was noted to have multiple seizures requiring interventions with IV Ativan. Described as tonic-clonic in nature with eyes rolled back in the head. Gross motor movement shaking 4 extremities. Today the patient was noted to have a positive growth and blood cultures. WBC count elevated. Ammonia level was drawn less than 10, lactate was noted to be 2.2 this morning. Pleural fluid culture negative growth to date. 11/11: On stimulation patient continues to have jerking movement of all extremities. EEG negative for seizures. Check MRI today. Dr. Kirkland is neurology. Remains on 2 mcg/min of Levophed 11/12: Per neurologist, patient had witnessed with tonic convulsions started over right arm and propagated to left UE and both LE with fluttering of the eyes and upward gaze.Loaded with Dilantin iv infusion and a maintenance dose of 100mg Q8h, Stat EEG negative for seizures. Its unclear to me whether it is seizure or myoclonus 11/13: No change in neuro status. Continues to have jerking movements off lower extremity when stimulated. EEG 2 have been negative for seizures. We'll hold sedation for neuro exam 11/14: On sedation hold opens eyes. Appears to follow commands and upper extremity. Still has some tremulousness of the extremities. Remains off pressors 11/15: Remains on Precedex intermittently following commands for RN. Placed on CPAP tolerating well. No evidence of myoclonus now 11/16: On 1.1 mcg/kg/hr of Precedex. No spontaneous eye opening but moves all extremities spontaneously. Not following commands will reduce Precedex, and start weaning trials 11/17: Mental status significantly improved patient following commands on Precedex. However chest tube was dislodged yesterday evening, now has bilateral pleural effusions left is more than right, appears large. Vent day 10 11/18: Off Precedex following commands upper extremities. But continues to fail C Pap trials due to tachypnea and low tidal volumes. Status post large-volume left thoracentesis yesterday with 1.2 L of old blood-tinged fluid removed. 11/19: Overnight agitated, requiring maximum dose Precedex 1.4 mcg per kg per hr and restraints. Currently heavily sedated. Chest x-ray shows increasing left effusion confirmed by ultrasound. We'll proceed with left pigtail catheter after consent. Continue to hold Coumadin due to hemorrhagic effusion 11/20: Left pigtail chest tube placed yesterday with a 30 mL output. Mentation improving now oriented follows commands. Requiring oxygen by nasal cannula. Slight increase in right effusion seen on chest x-ray 11/21: CT chest shows moderate left-sided pneumothorax. Eating continues to be slightly tachypneic but patient appears comfortable. Agitated requiring 4 point restraints. Also a liver enzymes are increasing most likely secondary to Dilantin. I will DC Dilantin and start him on Keppra 11/22 No acute events overnight. On Precedex drip. Afebrile. CXR this morning showed no evidence of PTX. 11/23 Patient is on Precedex 0.7 awake and alert on 2L oxygen with good sats. 11/24 Patient is off Precedex drip. Afebrile. Awake and alert. 11/25 Called by nurse as patient was diaphoretic, tachypneic, tachycardic, hypertensive minimally responsive and had O2 saturation in 80's he was subsequently intubated and placed on mechanical ventilation. CXR from earlier showed volume loss, consolidation RUL. 11/26 Patient is sedated with Diprivan and intubated. s/p bronch yesterday which showed mucous plugs on right CXR post bronch showed much improved aeration of right lung. Afebrile 11/27: Remains sedated with propofol, orally intubated on mechanical ventilation. 2 left-sided pigtail catheter is in place with posterior pigtail catheter having positive air leak. 11/28: Remains sedated, orally intubated on mechanical ventilation. One of the 2 pigtail catheters on the left side got dislodged in the morning by value engineer RN. Patient did not drop O2 sats. Second pigtail catheter which is still in place does not have any air leak currently. Stat chest x-ray obtained by ms which shows small apical pneumothorax on the left. Peak airway pressures 14, patient is not having any issues with hypotension and desaturation. We'll repeat chest x-ray later today to follow-up on pneumothorax and decide regarding placing another chest tube. 11/29 Patient is sedated with Diprivan and intubated. Afebrile. 11/30 The patient remains on heparin infusion for occlusive DVT left cephalic vein , and scattered clots left brachial and left axillary veins. Noted magnesium level was decreased 11/28. Repeat magnesium level pending this a.m., will replete as necessary. 12/01 Tmax 100.2 The patient currently off sedation, not set appropriately when questioned. The patient tolerated CPAP trials 4 hours yesterday. Left pigtail chest tube no leak remains on 40 cm of water pressure. 12/02 Tmax 99.4. Heparin infusion held at 6 AM this morning in anticipation of tracheostomy and PEG placement. Tube feeds have been off since 12 midnight consents are noted in the chart. The patient was noted to remain on CPAP for approximately 4 hours yesterday without difficulty. 12/03: TMAX 99.9. The patient successfully underwent tracheostomy PEG tube placement yesterday. The patient will begin CPAP trials this a.m.. The patient was noted to have DVTs in the now right upper extremity, in conjunction with the existing left upper extremity DVT's. Tube feeds restarted without residuals 6 hours post placement of PEG. Objective Vital Signs Date Time Temp Pulse Resp B/P Pulse Ox O2 Delivery O2 Flow Rate FiO2 12/03/16 07:36 35 12/03/16 07:36 100 12/03/16 06:00 77 12/03/16 04:00 98.9 17 175/75 Intake and Output 12/02/16 12/02/16 12/03/16 08:00 16:00 00:00 Intake Total 100 ml 173 ml 385 ml Output Total 240 ml 280 ml 220 ml Balance -140 ml -107 ml 165 ml Result Diagram: 12/03/16 0253 12/03/16 0253 Imaging Last Impressions Upper Extremity Ultrasound 11/29/16 0000 Signed Impressions: Service Date/Time: Tuesday, November 29, 2016 11:59 - CONCLUSION: Thrombus as described above. Clot in the deep venous system is accommodation of occlusive and nonocclusive clot. Kun Mendoza MD FACR Chest X-Ray 11/29/16 0000 Signed Impressions: Service Date/Time: Tuesday, November 29, 2016 07:29 - CONCLUSION: No change in bilateral pulmonary opacity. No evidence of pneumothorax. Endotracheal tube tip now 3 cm above the laura. Mathew Guerrero MD Chest CT 11/20/16 0000 Signed Impressions: Service Date/Time: October 09:37 - CONCLUSION: 1. Left pneumothorax without tension 2. Small loculated effusion medial right base 3. Pericardial effusion as above Jimi Chavez MD Liver Ultrasound 11/17/16 0000 Signed Impressions: Service Date/Time: Thursday, November 17, 2016 15:58 - CONCLUSION: 1. Increased liver echogenicity characteristic of mild fatty infiltration or hepatocellular disease. 2. Trace free fluid in the abdomen. Pleural effusions. Mild gallbladder wall thickening. Chaka Campos MD Brain MRI 11/11/16 0000 Signed Impressions: Service Date/Time: Friday, November 11, 2016 12:53 - CONCLUSION: 1. 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 2. 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 The others would be consistent with punctate, remote areas of hemorrhage suggesting possibility of amyloid. Eitan Mendoza MD Head CT 11/09/16 0000 Signed Impressions: Service Date/Time: Wednesday, November 09, 2016 10:29 - CONCLUSION: Stable CT scan of the brain. Pradeep Rodriguez MD Chest Tube Insertion 11/08/16 0000 Signed Impressions: Service Date/Time: Tuesday, November 08, 2016 12:46 - CONCLUSION: Uncomplicated right chest tube placement as above. 1500 cc of fluid removed and sent for culture. Post CT scan reveals a large. pleural rind . The right lung may well not reexpanded. A.m. chest x-ray is pending. Cultures pending. Kun Mendoza MD FACR CT Angiography 11/07/16 0000 Signed Impressions: Service Date/Time: October 20:40 - CONCLUSION: 1. No pulmonary embolus. 2. Marked cardiac enlargement, especially the atria. 3. Bilateral effusions and atelectasis about the same on the left and considerably worse on the right. Right pneumothorax seen previously has resolved. Dhruv Foster MD Objective Remarks GENERAL: Patient is 81yo intubated and sedated. SKIN: Warm and dry. HEAD: Normocephalic. EYES: No scleral icterus. No injection or drainage. NECK: Supple, trachea midline. No JVD or lymphadenopathy. Orally intubated CARDIOVASCULAR: Regular rate and rhythm without murmurs, gallops, or rubs. RESPIRATORY: Breath sounds equal bilaterally. No accessory muscle use. GASTROINTESTINAL: Abdomen soft, non-tender, nondistended. MUSCULOSKELETAL: No cyanosis, + edema LUE. Neuro: Sedated, intubated Urinary Catheter: Yes Date of Insertion: Nov 08, 2016 A/P Assessment and Plan Assessment: This is an 81-year-old male with history of prior recurrent right pleural effusions and COPD now presents with acute hypercarbic and hypoxic respiratory failure which has failed noninvasive positive pressure ventilation. Intubated and placed on mechanical ventilation. Covering COPD exacerbation, as well as healthcare associated pneumonia given his history of being on Levaquin at his intermediate facility. He remains critically ill. Not sure that we will be able to get him through this hospitalization, and his recurrent respiratory failures are clearly making him more deconditioned every time he comes in the hospital. Despite this, daughter continues to request aggressive measures. Extubated 11/18/16. Reintubated 11/25.Now beginning CPAP trials. Plan by systems: Neurologic: Myoclonus-resolved Agitated delirium CO2 narcosis-resolved Metabolic encephalopathy Mild dementia -On Diprivan infusion, currently off for sedation. Patient nodding head appropriately to questions. Use Ativan PRN for breakthrough seizures /myoclonus -EEG negative 11/10/15, 11/11/16 (moderate to severe encephalopathy, no seizure) -11/08 CT of the brain-no acute abnormality. 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 Question of amyloid -On Keppra 500 mg by mouth twice a day Respiratory: Acute hypercarbic and hypoxic respiratory failure-extubated - Reintubated 11/25 Recurrent right pleural effusion s/p chest tube placement-dislodged 11/17 New moderate left pneumothorax-resolved Right pneumothorax-resolved Large hemorrhagic left pleural effusion status post thoracentesis 11/17/16, pigtail chest tube 11/19/16 Healthcare associated pneumonia COPD exacerbation Tracheostomy 12/02 POD #1 -Continue with vent support keep sat >92% -Bronchodilators, Mucomyst nebs -s/p Bronch 11/25: Mucous plugs on right CXR post bronch -much improved aeration of right lung Continue prednisone per Dr. Kitchen, -s/p anterior left anterior pigtail chest tube, continues on 20 cm of water suction --Status post left thoracentesis 11/17/16 with 1.2 L of hemorrhagic fluid removed. CXR/US shows reaccumulation of left pleural fluid. pigtail chest tube placed 11/19/1611/08 S/P CT guided IR drainage of recurrent right posterior pleural effusion, unable to perform pleurodesis, accidentally dislodged Monitor CT drainage. Patient has one pigtail catheter on the left side which has no air leak currently on 20 cm of water pressure, no drainage. One of the pigtail catheters got dislodged on 11/28 in a.m. -S/P tracheostomy 8.0 Tom 12/02 -12/02CXR-1.2 cm small left pneumothorax, left chest tube on continuous suction 20 cm Cardiovascular: Severe pulmonary hypertension (PASP 85 on Echo 10/08/16, repeat echo 11/19/16 PASP was 47) A. fib RVR Hypertension Moderate to severe TR Continue with BP meds- (captopril and atenolol 11/14/16) --Monitor HR and BP keep MAP>65mmHg --Repeat 2d echo 11/19/16 PASP was 47 compared to 85 on 10/18/16 Renal: Hypernatremia- resolved Monitor renal function, I/O's, electrolytes replacement per protocol. -On Lasix 20mg BID FEN/GI: Acute intravascular volume overload Acute protein calorie malnutritionsevere Elevated LFT's -Monitor LFT's...trending down -Glucerna 1.5 with goal rate 45ml/hr, no residuals noted, currently off for procedure placement today -GI eval for PEG tube placement-scheduled for Saturday 12/02 Heme/ID: Healthcare associated pneumonia, staph aureus in sputum Leukocytosis- Afebrile Thrombocytopenia -Patient s/p Cefepime and Zithromax 11/08-11/13 and Rocephin 11/15-11/18 ID is following. Rocephin resumed for MSSA pneumonia on 11/26 -11/26 Sputum cx : Staph Aureus 11/08 blood -micrococcus 08/28 possible contaminant - Urine cultures-NGTD --Sputum cx 11/12/16 with staph aureus -Platelet count 91 today, patient continues on heparin infusion will continue to monitor Endocrine: Hyperglycemia of critical illness-resolved -- SSI, medium scale, every 6 hours discontinued 12/01 Prophylaxis: GI Prophylaxis Protonix 40 mg IV every 24 hours DVT Prophylaxis --SCDs Doppler US LUE: Occlusive and non-occlusive clot in cephalic vein, scattered clot in brachial and axillary vein On Heparin drip, Coumadin was placed on hold 11/29/16. Invasive procedures planned for today . Lines: Peripheral IVsx 2. central line if indicated Vital Dispo: Palliative care is following. Discussed with INJECTION MOULDING MACHINE OPERATOR at bedside. Plan for possible transfer to [facility], case management and process. Level 3 Physician Kathrine Childers MD Dec 03, 2016 09:57
[2016-12-03] MEDS ORDERED: FUROSEMIDE 20 MG/2 ML VIAL IV PUSH ONE (10:00)
[2016-12-03] MEDS: SODIUM CHLORIDE 0.9% FLUSH 5 ML FLUSH IVF PRN (11:03)
--- NOTE | 2016-12-03 12:10 | HHI.GIFU ---
Subjective Remarks Resting in bed in no distress. Tolerating TF. Objective Vitals I&O Vital Signs Date Time Temp Pulse Resp B/P Pulse Ox O2 Delivery O2 Flow Rate FiO2 12/03/16 11:12 96 35 12/03/16 10:00 85 12/03/16 08:00 76 12/03/16 08:00 99.4 76 18 173/73 95 12/03/16 07:36 35 12/03/16 07:36 100 35 12/03/16 06:00 77 12/03/16 04:00 45 12/03/16 04:00 98.9 77 17 175/75 99 12/03/16 04:00 77 12/03/16 02:00 77 12/03/16 01:00 96 45 12/03/16 00:00 45 12/03/16 00:00 80 12/03/16 00:00 98.9 80 20 167/70 100 12/02/16 22:00 78 12/02/16 21:43 95 45 12/02/16 20:00 45 12/02/16 20:00 77 12/02/16 20:00 99.9 77 15 185/77 97 12/02/16 19:30 95 45 12/02/16 18:00 78 12/02/16 16:48 16 12/02/16 16:00 45 12/02/16 16:00 78 12/02/16 16:00 98.9 78 15 184/77 100 12/02/16 15:46 100 45 12/02/16 14:00 78 12/02/16 12:45 100 100 I/O 12/02/16 12/02/16 12/02/16 12/03/16 12/03/16 12/03/16 07:00 15:00 23:00 07:00 15:00 23:00 Intake Total 100 ml 173 ml 385 ml 510 ml Output Total 240 ml 280 ml 220 ml 220 ml Balance -140 ml -107 ml 165 ml 290 ml IV Total 100 ml 173 ml 150 ml 150 ml Tube Feeding 75 ml 320 ml Tube Irrigant 160 ml 40 ml Output Urine Total 240 ml 280 ml 220 ml 220 ml Stool Total 0 ml 0 ml Chest Tube Drainage Total 0 ml Laboratory Laboratory Tests Test 12/02/16 12/03/16 19:49 02:53 Activated Partial 35.4 41.0 Thromboplast Time White Blood Count 7.6 Red Blood Count 3.22 Hemoglobin 10.6 Hematocrit 32.0 Mean Corpuscular Volume 99.4 Mean Corpuscular Hemoglobin 32.9 Mean Corpuscular Hemoglobin 33.1 Concent Red Cell Distribution Width 14.8 Platelet Count 119 Mean Platelet Volume 8.9 Prothrombin Time 10.9 Prothromb Time International 1.0 Ratio Sodium Level 142 Potassium Level 4.3 Chloride Level 99 Carbon Dioxide Level 37.3 Anion Gap 6 Blood Urea Nitrogen 25 Creatinine 0.50 Estimat Glomerular Filtration 160 Rate Random Glucose 120 Calcium Level 8.6 Phosphorus Level 3.6 Magnesium Level 2.1 Date/Time Procedure Status Source Growth 12/02/16 12:55 Gram Stain - Final Resulted Bronchial Washings Other 12/02/16 12:55 Bronchial Culture - Preliminary Resulted Staphylococcus Aureus Gram Negative Fernando 12/02/16 12:55 Cancelled Sputum Endotracheal 12/02/16 12:55 Cancelled Sputum Endotracheal Imaging Last Impressions Chest X-Ray 12/03/16 0600 Signed Impressions: Service Date/Time: Saturday, December 03, 2016 03:42 - CONCLUSION: 1. Bibasilar and right perihilar consolidation. 2. Cardiomegaly. 3. Decreasing small left apical pneumothorax. Dre Florentino MD Upper Extremity Ultrasound 12/02/16 0000 Signed Impressions: Service Date/Time: Friday, December 02, 2016 10:49 - CONCLUSION: Positive DVT with nonocclusive thrombus in the right jugular vein and occlusive thrombus in the right brachial and cephalic veins. Pop Prescott MD Chest CT 11/20/16 0000 Signed Impressions: Service Date/Time: October 09:37 - CONCLUSION: 1. Left pneumothorax without tension 2. Small loculated effusion medial right base 3. Pericardial effusion as above Jimi Chavez MD Liver Ultrasound 11/17/16 0000 Signed Impressions: Service Date/Time: Thursday, November 17, 2016 15:58 - CONCLUSION: 1. Increased liver echogenicity characteristic of mild fatty infiltration or hepatocellular disease. 2. Trace free fluid in the abdomen. Pleural effusions. Mild gallbladder wall thickening. Chaka Campos MD Brain MRI 11/11/16 0000 Signed Impressions: Service Date/Time: Friday, November 11, 2016 12:53 - CONCLUSION: 1. 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 2. 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 The others would be consistent with punctate, remote areas of hemorrhage suggesting possibility of amyloid. Eitan Mendoza MD Head CT 11/09/16 0000 Signed Impressions: Service Date/Time: Wednesday, November 09, 2016 10:29 - CONCLUSION: Stable CT scan of the brain. Pradeep Rodriguez MD Chest Tube Insertion 11/08/16 0000 Signed Impressions: Service Date/Time: Tuesday, November 08, 2016 12:46 - CONCLUSION: Uncomplicated right chest tube placement as above. 1500 cc of fluid removed and sent for culture. Post CT scan reveals a large. pleural rind . The right lung may well not reexpanded. A.m. chest x-ray is pending. Cultures pending. Kun Mendoza MD FACR CT Angiography 11/07/16 0000 Signed Impressions: Service Date/Time: October 20:40 - CONCLUSION: 1. No pulmonary embolus. 2. Marked cardiac enlargement, especially the atria. 3. Bilateral effusions and atelectasis about the same on the left and considerably worse on the right. Right pneumothorax seen previously has resolved. Dhruv Foster MD Physical Exam HEENT: Normocephalic; atraumatic; no jaundice. NECK: Neck is supple, tracheostomy CHEST: Course lung sounds, diminished bases CARDIAC: Irregular ABDOMEN: Soft, nondistended,no hepatosplenomegaly; bowel sounds are present in all four quadrants. PEG tube site without redness or swelling EXTREMITIES: ecchymoses BUE, BLE discolored. SKIN: Normal; no rash; no jaundice Assessment and Plan Plan ASSESSMENT: - Dysphagia/FEN. S/P PEG tube placement ( 12/02/16)---> gastritis, peg tube placement. Pathology pending. Site without redness or swelling. - Gastritis. Pathology pending. PPI. - Metabolic encephalopathy. - Acute respiratory failure, Right pleural effusion, large hemorrhagic left pleural effusion, left ptx, HCAP, COPD. S/P Tracheostomy. Vent per CCM - Elevated LFTs. Improved. Liver Ultrasound (11/17/16)---> 1. Increased liver echogenicity characteristic of mild fatty infiltration or hepatocellular disease. 2. Trace free fluid in the abdomen. Pleural effusions. Mild gallbladder wall thickening. - Atrial fibrillation, HTN, moderate to severe Triscuspid regurgitation. - Nonocclusive thrombus right jugular vein. US Positive DVT with nonocclusive thrombus in the right jugular vein and occlusive thrombus in the right brachial and cephalic veins. PLAN: - Jevity 1.5 at 60cc/hr - Monitor LFTs - GI will sign off, please reconsult as needed - Pt seen and examined by Dr. Caballero and myself and this note is written on his behalf Evelyne Urbano Dec 03, 2016 12:09
[2016-12-03] MEDS: cefTRIAXone INJ 1,000 MG in SODIUM CHLORIDE 0.9% INJ 100 ML IV SCH (13:40)
--- NOTE | 2016-12-03 15:51 | HHI.HCPN ---
Reason for visit a. To assist with evaluation and management of symptoms including: agitation, pain, dyspnea, debility b. To assist medical decision maker(s) with: better understanding of current medical conditions; weighing benefits/burdens of medical treatment options; making medical treatment decisions. . (Sujatha Elliott) Subjective/Interval History Patient seen and assessed this morning in the [facility], room 500 status post tracheostomy and PEG tube yesterday 12/02/16. Patient tolerated CPAP for approximately 3 hours this morning, having periods of apnea with intermittent tachypnea. He is now sedated and back mechanical ventilator; FiO2 60%, PEEP 5, rate 14. 12/02/16 showing a 1.2 cm left pneumothorax, left chest tube on continuous suction 20 cm. Follow-up chest x-ray this morning showing bibasilar and right perihilar consolidation and cardiomegaly, decreasing small left apical pneumothorax. Patient now with DVT in right upper extremity in addition to left upper extremity DVT. Afebrile. Leukocytosis has resolved. Bronchial culture from 12/02/16 growing staph aureus. Patient remains on IV antibioticsRocephin. = Follow-up sputum culture on 11/26/16 remains positive for staph aureus. = Pleural fluid culture on 10/28/16 was negative; cytology negative for malignancy. 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 Patient tolerating tube feedings is post PEG tube placement on 12/02/16. Receiving Glucerna 1.5 at 50 mL's per hour. BMI 18.8. Albumin level of 1.9. Tentative plan for possible [facility] pending [facility]-case management is following. . Family/friend interactions Spoke to patient's daughter, Raissa, at length via telephone. Update provided on patient's clinical condition status post tracheostomy and PEG tube placement yesterday 12/02/16. Raissa verbalizing frustration related to her father's long hospital course with multiple complications/setbacks. 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 . (Sujatha Elliott) Advance Directives Advance Directive Specifics Health Care Surrogate(s): == No written designation of health care surrogacy. == Patient , has on several occasions, verbally stated that he wants BOTH of his children to participate in health care decision making if he is incapacitated to do so. . Documented care wishes: Patient's daughter has indicated during prior hospitalization that her father completed some type of written advanced directives but has not provided copies of these documents to date. . (Sujatha Elliott) Objective Vital Signs Date Time Temp Pulse Resp B/P Pulse Ox O2 Delivery O2 Flow Rate FiO2 12/03/16 12:00 98.9 83 14 162/70 96 12/03/16 12:00 35 12/03/16 12:00 83 12/03/16 11:12 96 35 12/03/16 10:40 35 12/03/16 10:00 85 12/03/16 08:00 76 12/03/16 08:00 35 12/03/16 08:00 99.4 76 18 173/73 95 12/03/16 07:36 35 12/03/16 07:36 100 35 12/03/16 06:00 77 12/03/16 04:00 45 12/03/16 04:00 98.9 77 17 175/75 99 12/03/16 04:00 77 12/03/16 02:00 77 12/03/16 01:00 96 45 12/03/16 00:00 45 12/03/16 00:00 80 12/03/16 00:00 98.9 80 20 167/70 100 12/02/16 22:00 78 12/02/16 21:43 95 45 12/02/16 20:00 45 12/02/16 20:00 77 12/02/16 20:00 99.9 77 15 185/77 97 12/02/16 19:30 95 45 12/02/16 18:00 78 12/02/16 16:48 16 12/02/16 16:00 45 12/02/16 16:00 78 12/02/16 16:00 98.9 78 15 184/77 100 12/02/16 15:46 100 45 Intake & Output 12/03/16 12/03/16 07:00 19:00 Intake Total 895 ml Output Total 440 ml Balance 455 ml IV Total 300 ml Tube Feeding 395 ml Tube Irrigant 200 ml Output Urine Total 440 ml Stool Total 0 ml Chest Tube Drainage Total 0 ml . Physical Exam CONSTITUTIONAL/GENERAL: This is a frail, elderly male patient in no acute distress, sedated with tracheostomy to mechanical vent. TUBES/LINES/DRAINS: PIV x2, Vital, podus boots, pigtail chest tube, Vital catheter, soft restraints, tracheostomy, PEG tube placement SKIN: Ecchymoses on upper extremities, multiple scabbed areas, ashen color HEAD: Atraumatic. Normocephalic. EYES: PERRLA ENT: Nose without bleeding or purulent drainage. NECK: Tracheostomy patent CARDIOVASCULAR: Regular rate and rhythm No murmurs, gallops, or rubs. Peripheral pulses symmetric. RESPIRATORY/CHEST: Tracheostomy to mechanical vent. Left-sided pigtail catheter 1 in left pleural cavity. GASTROINTESTINAL: Abdomen soft, non-tender, nondistended. Status post PEG tube placement on 12/02/16, tolerating artificial nutrition. GENITOURINARY: Without palpable bladder distension. Vital catheter . MUSCULOSKELETAL: Pulses strong, equal. No edema. Hyperpigmentation below knees bilaterally LYMPHATICS: No palpable cervical or supraclavicular adenopathy. NEUROLOGICAL: Sedated on Diprivan. PSYCHIATRIC: Unable to assess given patient's current condition. . (Sujatha Elliott) Diagnostic Tests Laboratory Laboratory Tests Test 11/30/16 12/01/16 12/01/16 12/01/16 21:35 03:06 16:45 22:53 Activated Partial 44.7 SEC 50.4 SEC 41.0 SEC 42.9 SEC Thromboplast Time (24.3-30.1) (24.3-30.1) (24.3-30.1) (24.3-30.1) White Blood Count 9.1 TH/MM3 (4.0-11.0) Red Blood Count 3.23 MIL/MM3 (4.50-5.90) Hemoglobin 10.7 GM/DL (13.0-17.0) Hematocrit 31.8 % (39.0-51.0) Mean Corpuscular Volume 98.3 FL (80.0-100.0) Mean Corpuscular Hemoglobin 33.0 PG (27.0-34.0) Mean Corpuscular Hemoglobin 33.6 % Concent (32.0-36.0) Red Cell Distribution Width 14.9 % (11.6-17.2) Platelet Count 91 TH/MM3 (150-450) Mean Platelet Volume 8.8 FL (7.0-11.0) Prothrombin Time 12.6 SEC (9.8-11.6) Prothromb Time International 1.1 RATIO Ratio Sodium Level 143 MEQ/L (136-145) Potassium Level 3.9 MEQ/L (3.5-5.1) Chloride Level 100 MEQ/L (98-107) Carbon Dioxide Level 39.0 MEQ/L (21.0-32.0) Anion Gap 4 MEQ/L (5-15) Blood Urea Nitrogen 18 MG/DL (7-18) Creatinine 0.50 MG/DL (0.60-1.30) Estimat Glomerular Filtration 160 ML/MIN Rate (>89) Random Glucose 120 MG/DL (74-106) Calcium Level 8.6 MG/DL (8.5-10.1) Phosphorus Level 2.7 MG/DL (2.5-4.9) Magnesium Level 2.1 MG/DL (1.5-2.5) Total Bilirubin 0.4 MG/DL (0.2-1.0) Aspartate Amino Transf 39 U/L (15-37) (AST/SGOT) Alanine Aminotransferase 47 U/L (12-78) (ALT/SGPT) Alkaline Phosphatase 156 U/L (45-117) Total Protein 5.4 GM/DL (6.4-8.2) Albumin 1.9 GM/DL (3.4-5.0) Test 12/02/16 12/02/16 12/02/16 12/03/16 03:03 08:05 19:49 02:53 White Blood Count 8.4 TH/MM3 7.6 TH/MM3 (4.0-11.0) (4.0-11.0) Red Blood Count 3.05 MIL/MM3 3.22 MIL/MM3 (4.50-5.90) (4.50-5.90) Hemoglobin 10.1 GM/DL 10.6 GM/DL (13.0-17.0) (13.0-17.0) Hematocrit 30.2 % 32.0 % (39.0-51.0) (39.0-51.0) Mean Corpuscular Volume 98.9 FL 99.4 FL (80.0-100.0) (80.0-100.0) Mean Corpuscular Hemoglobin 33.0 PG 32.9 PG (27.0-34.0) (27.0-34.0) Mean Corpuscular Hemoglobin 33.4 % 33.1 % Concent (32.0-36.0) (32.0-36.0) Red Cell Distribution Width 15.1 % 14.8 % (11.6-17.2) (11.6-17.2) Platelet Count 98 TH/MM3 119 TH/MM3 (150-450) (150-450) Mean Platelet Volume 9.6 FL 8.9 FL (7.0-11.0) (7.0-11.0) Sodium Level 144 MEQ/L 142 MEQ/L (136-145) (136-145) Potassium Level 4.1 MEQ/L 4.3 MEQ/L (3.5-5.1) (3.5-5.1) Chloride Level 101 MEQ/L 99 MEQ/L (98-107) (98-107) Carbon Dioxide Level 38.8 MEQ/L 37.3 MEQ/L (21.0-32.0) (21.0-32.0) Anion Gap 4 MEQ/L (5-15) 6 MEQ/L (5-15) Blood Urea Nitrogen 21 MG/DL (7-18) 25 MG/DL (7-18) Creatinine 0.40 MG/DL 0.50 MG/DL (0.60-1.30) (0.60-1.30) Estimat Glomerular Filtration 206 ML/MIN 160 ML/MIN Rate (>89) (>89) Random Glucose 106 MG/DL 120 MG/DL (74-106) (74-106) Calcium Level 8.5 MG/DL 8.6 MG/DL (8.5-10.1) (8.5-10.1) Phosphorus Level 2.8 MG/DL 3.6 MG/DL (2.5-4.9) (2.5-4.9) Magnesium Level 2.1 MG/DL 2.1 MG/DL (1.5-2.5) (1.5-2.5) Prothrombin Time 11.2 SEC 10.9 SEC (9.8-11.6) (9.8-11.6) Prothromb Time International 1.0 RATIO 1.0 RATIO Ratio Activated Partial 35.4 SEC 41.0 SEC Thromboplast Time (24.3-30.1) (24.3-30.1) Test 12/03/16 11:16 Activated Partial 45.0 SEC Thromboplast Time (24.3-30.1) . (Sujatha Elliott) Result Diagram: 12/03/16 0253 12/03/16 0253 Microbiology Microbiology Date/Time Procedure Status Source Growth 12/02/16 12:55 Cancelled Sputum Endotracheal 12/02/16 12:55 Cancelled Sputum Endotracheal 12/02/16 12:55 Gram Stain - Final Resulted Bronchial Washings Other 12/02/16 12:55 Bronchial Culture - Preliminary Resulted Staphylococcus Aureus 12/02/16 12:55 Gram Stain - Final Resulted Bronchial Washings Other 12/02/16 12:55 Bronchial Culture - Preliminary Resulted Staphylococcus Aureus Gram Negative Fernando . Imaging Last 72 hours Impressions Chest X-Ray 12/03/16 0600 Signed Impressions: Service Date/Time: Saturday, December 03, 2016 03:42 - CONCLUSION: 1. Bibasilar and right perihilar consolidation. 2. Cardiomegaly. 3. Decreasing small left apical pneumothorax. Dre Florentino MD Upper Extremity Ultrasound 12/02/16 0000 Signed Impressions: Service Date/Time: Friday, December 02, 2016 10:49 - CONCLUSION: Positive DVT with nonocclusive thrombus in the right jugular vein and occlusive thrombus in the right brachial and cephalic veins. Pop Prescott MD Chest X-Ray 12/02/16 0000 Signed Impressions: Service Date/Time: Friday, December 02, 2016 13:02 - CONCLUSION: Worsening appearance of the chest. A tracheostomy tube is noted, and left-sided pneumothorax is present. Don Soto MD Chest X-Ray 12/01/16 0600 Signed Impressions: Service Date/Time: Thursday, December 01, 2016 04:35 - CONCLUSION: Persistent bibasilar areas of consolidation or atelectasis. There are mild effusions. There is a left chest tube in place. Dhruv Allen MD . Procedures 11/08/16: Intubation 11/08/16: Right IJ central line placement 11/08/16: Right chest tube placement with thoracentesis 11/15/16: Left arterial line removed 11/17/16: Chest tube removed 11/17/16: Thoracentesis. 11/18/16: Extubation 11/19/16: Left pigtail chest tube placement 11/25/16: Bronchoscopy 11/25/16: Reintubation 11/25/16: OGT 11/25/16: Second chest tube placed in left chest wall 12/02/16: Tracheostomy 12/02/16: PEG tube placement . . . (Sujatha Elliott) Assessment and Plan Disease Oriented Problem List: (1) Pleural effusion (2) Congestive heart failure (3) Chronic atrial fibrillation (4) Pneumothorax (5) Hypertension (6) Acute respiratory failure with hypoxia and hypercapnia (7) COPD (chronic obstructive pulmonary disease) (8) Pneumonia (9) Protein-calorie malnutrition, severe Symptom Scale: (1) Dyspnea 0-10 Scale: Unable to quantify Comment: Status post tracheostomy yesterday 12/02/16. Patient tolerated CPAP for approximately 3 hours this morning, having periods of apnea with intermittent tachypnea. He is now sedated and back mechanical ventilator; FiO2 60%, PEEP 5, rate 14. Bronchial culture growing staph aureus. (2) Pain 0-10 Scale: Unable to quantify Comment: Probable causes of pain include dyspnea, infection, invasiveness lines , skin breakdown, immobility, bedbound status etc. Currently sedated on Diprivan and PRN fentanyl is available every 4 hours IV. Patient has received 2 doses of fentanyl in the past 24 hours. (3) Agitation Comment: IV Haldol is ordered q4 hours PRN for agitation; doses administered in the past 24 hours. If Haldol is ineffective in managing patient's agitation, low dose lorazepam (1mg IV q4 hours PRN) is recommended as adjunctive therapy. (4) Debility Pertinent Non-Medical Issues Psychosocial: Patient is originally from [facility] but has lived in [place] since . 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 He was and , many years ago. He has 2 children. His daughter, Raissa daniels, lives locally and is very involved in the patient's care. The patient also has a son living in [place], but reportedly has not seen him in the last 5 years. The patient does keep in touch. The patient lives alone. His daughter lives a few blocks away and assist the patient with shopping and meal preparation. Spiritual: The patient comes from Religious tradition. Per his daughter, spiritism and spirituality have not been an important part of his life. Legal: Patient is currently incapacitated and unable to participate in clarification of medical treatment goals. It is unclear at this time if the patient will ever became this capacity. Per [place] statutes, in the absence of written advanced directives healthcare proxy decision making would fall to the patient's 2 adult children. Patient, has on several occasions during previous hospitalization, verbally stated that he wanted BOTH of his children to participate in health care decision making if he is incapacitated to do so. Ethical issues impacting care: No known ethical issues impacting care at this time. Important Contacts Rasisa Perla (daughter) [phone] Anselmo Duncan (son) [phone] Aneesh Walls (friend) [phone] . Prognosis This is an 81-year-old male with an extensive history (decades) of congestive heart failure complicated by underlying COPD, history of alcohol abuse. Patient has been declining since March 2016 particularly with recurrent right pleural effusions. He has required > 5 thoracenteses since that time. He has been living at [facility] since his [facility] discharge from [facility] on 10/20/16. There is known ischemic heart disease and failure may be primarily due to valvular heart disease. There is severe tricuspid regurgitation. Patient There is a reasonable chance he will continue to improve well enough to survive the hospitalization. Based on his history of the last few months, long-term prognosis is not good. Life expectancy is probably in the order of months. Patient would certainly be eligible for hospice services at such time as his goals become mostly comfort oriented. Code Status: Full Code Plan * FULL CODE * Decision making: Patient is currently incapacitated and unable to participate in clarification of medical treatment goals. It is unclear at this time if the patient will ever became this capacity. Per [place] statutes, in the absence of written advanced directives healthcare proxy decision making would fall to the patient's 2 adult children. Patient, has on several occasions during previous hospitalization, verbally stated that he wanted BOTH of his children to participate in health care decision making if he is incapacitated to do so. * GOALS: Aggressive goal * Symptom managementdyspnea: Status post tracheostomy yesterday 12/02/16. Patient tolerated CPAP for approximately 3 hours this morning, having periods of apnea with intermittent tachypnea. He is now sedated and back mechanical ventilator; FiO2 60%, PEEP 5, rate 14. Bronchial culture growing staph aureus. * Symptom managementpain: Probable causes of pain include dyspnea, infection, invasiveness lines, skin breakdown, immobility, bedbound status etc. Currently sedated on Diprivan and PRN fentanyl is available every 4 hours IV. Patient has received 2 doses of fentanyl in the past 24 hours. * Symptom management- agitation: IV Haldol is ordered q4 hours PRN for agitation ; doses administered in the past 24 hours. If Haldol is ineffective in managing patient's agitation, low dose lorazepam (1mg IV q4 hours PRN) is recommended as adjunctive therapy. * Patient tolerating tube feedings is post PEG tube placement on 12/02/16. Receiving Glucerna 1.5 at 50 mL's per hour. BMI 18.8. Albumin level of 1.9. * Plan for possible transfer to [facility] pending authorization from [facility]-case management is following. * Spoke to patient's daughter, Raissa, at length via telephone. Update provided on patient's clinical condition status post tracheostomy and PEG tube placement yesterday 12/02/16. Raissa verbalizing frustration related to her father's long hospital course with multiple complications/setbacks. 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 * Patient's tube feeding was changed to Glucerna 1.5. Daughter stating the patient needs to be on [id number] tube feedings, stating the patient's tube feeding has "milk" listed on ingredient list. She believes this is the cause of the patient's respiratory failure. Dietary was consulted previously on 11/14/16. I spoke to dietary this morning. Tube feeding contains milk casein ( protein) only and that is why milk is listed on the label; It is considered a non-dairy product. Tube feeding is lactose free; Tube feeding contains soy protein; Currently neither Martin nor Isra carry a vegan tube feeding so this is not an option. Discussed with nurse Brittnee and patient's daughter has been made aware. * Received return phone call from patient's son, Anselmo Duncan. He does not support his sister's currently verbalized aggressive goals, but instead feels it is in his father's best interest to transition to comfort focus care. * Discussed with patient's nurse, Brittnee. * Palliative care will continue to follow this patient throughout his hospitalization to establish trust, assist with symptom management and clarification of medical treatment goals. . (Sujatha Elliott) Attestation To help prompt me to consider important information that might be impacting today's encounter and assessment, information from prior notes written by myself or my colleagues may have been "brought forward" into today's note. My signature on this note, however, is an attestation that I personally performed the exam, history, and/or decision-making noted today, and, unless otherwise indicated, the interactions with patient, family, and staff as well as the review of records all occurred today. I also attest that the listed assessment and stated plan reflect my best clinical judgment today based on the combination of historical information, prior notes, and today's exam/ interactions. When time spent is documented, it refers only to time spent today by the signer, or if indicated, combined time spent today by collaborating physician/nurse practitioner. . (Sujatha Elliott) Collaborating MD Comments . Chart reviewed. Cased discussed with palliative care ENTERTAINMENT USHER. Above ENTERTAINMENT USHER note reviewed and I concur. . (Vignesh Garcia MD) Sujatha Elliott Dec 03, 2016 15:51 Vignesh Garcia MD January 20, 2017 15:22
--- NOTE | 2016-12-03 17:09 | HHI.PR ---
Subjective Subjective Notes Resting in bed in NAD Objective Vitals/I&O Vital Signs Date Time Temp Pulse Resp B/P Pulse Ox O2 Delivery O2 Flow Rate FiO2 12/03/16 14:00 76 12/03/16 12:00 98.9 14 162/70 96 12/03/16 12:00 60 Labs Laboratory Tests Test 12/02/16 12/03/16 12/03/16 19:49 02:53 11:16 Activated Partial 35.4 41.0 45.0 Thromboplast Time White Blood Count 7.6 Red Blood Count 3.22 Hemoglobin 10.6 Hematocrit 32.0 Mean Corpuscular Volume 99.4 Mean Corpuscular Hemoglobin 32.9 Mean Corpuscular Hemoglobin 33.1 Concent Red Cell Distribution Width 14.8 Platelet Count 119 Mean Platelet Volume 8.9 Prothrombin Time 10.9 Prothromb Time International 1.0 Ratio Sodium Level 142 Potassium Level 4.3 Chloride Level 99 Carbon Dioxide Level 37.3 Anion Gap 6 Blood Urea Nitrogen 25 Creatinine 0.50 Estimat Glomerular Filtration 160 Rate Random Glucose 120 Calcium Level 8.6 Phosphorus Level 3.6 Magnesium Level 2.1 Date/Time Procedure Status Source Growth 12/02/16 12:55 Gram Stain - Final Resulted Bronchial Washings Other 12/02/16 12:55 Bronchial Culture - Preliminary Resulted Staphylococcus Aureus Gram Negative Fernando 12/02/16 12:55 Cancelled Sputum Endotracheal 12/02/16 12:55 Cancelled Sputum Endotracheal Cardiovascular: Regular Lungs: Clear Abdomen: Non-distended, Non-tender Extremities: No edema Narrative Exam trach in place with minimal bloody drainage on gauze A/P Assessment and Plan 81 year old male with VDRF in need of tracheostomy tube placement -Trach in good position -Continue routine trach care -Vent per [facility] -GS will sign off; please call with questions Denise Ackerman Dec 03, 2016 17:09
[2016-12-03] MEDS: HEPARIN-D5W INJ 250 ML IV SCH (21:30)
--- NOTE | 2016-12-03 21:36 | MP ---
cc: ASTER OCTA MD DATE OF SURGERY 12/02/16 PREOPERATIVE DIAGNOSIS Ventilator dependent respiratory failure. POSTOPERATIVE DIAGNOSIS Ventilator dependent respiratory failure. PROCEDURE Percutaneous tracheostomy. SURGEON Hardik Cota MD MANAGER OF CHANGE None ANESTHESIA Sedation and local anesthetic FINDINGS Tracheostomy and second tracheal ring with confirmation by bronchoscopy. COMPLICATIONS None INDICATIONS FOR PROCEDURE The patient is an 81-year-old male admitted to [facility] on 11/07/16 and was subsequently diagnosed with the ventilator dependent respiratory failure requiring continued ventilator support and prolonged weaning. The patient required a tracheostomy. Risks, benefits, alternatives of tracheostomy were discussed with the patient's family prior to the procedure. The patient's family agreed to have the patient undergo the procedure. PROCEDURE IN DETAIL After informed consent was verified and time out was performed, the tracheostomy was performed. The patient had undergone adequate sedation by Dr. Gaspar of critical care medicine. The anterior neck was prepped and draped in sterile fashion. Local anesthetic was instilled at the area of the planned tracheostomy tube fingerbreadths above the sternal notch. We were then able to make an incision which is a horizontal incision approximately 2 centimeters on the skin line at this area. We spread with a hemostat down through the platysma and into the anterior neck plane. At this point in time using the blue rhino 8.0 tracheostomy kit, we were able to percutaneously access the trachea at the level of the second ring with an 18 gauge needle until we aspirated air. We passed the wire through the needle and removed the needle and this wire was clearly visible down to the level of the laura on bronchoscopy which the patient was undergoing during the procedure by Dr. Gaspar. We were then able to use a punch to dilate this and use a blue rhino kit to dilate the tracheostomy and place an 8.0 Shiley type tracheostomy tube into the trachea without difficulty. We inflated the cuff and immediately performed a bronchoscopy through this newly placed tracheostomy and this was in good position in the trachea. We placed the patient back on his ventilator settings with 100% oxygenation. The patient tolerated the procedure well with no complications. This was sutured in place with interrupted Prolene sutures and a trache collar was placed. The patient again remained stable and x-ray was ordered at that time. I was present and scrubbed for the entire procedure. No apparent complications. The patient tolerated procedure well. MD DEEP Warren/ /6:59 PM /9:24 PM SHARLENE
[2016-12-04] VITALS (19 sets, daily range): BP systolic 161–196; BP diastolic 68–80; PULSE 55–87; RESP 14–23; TEMP 96.9–98.3; O2SAT 94–100
[2016-12-04] MEDS: PROPOFOL 1000 MG/100 ML INJ 100 ML IV SCH (02:05)
[2016-12-04] MEDS: LABETALOL HCL 100 MG/20 ML VIAL IV PUSH PRN ×2 (04:36→10:30)
[2016-12-04 06:03] LABS: APTT (PATIENT) 44.3 SEC (24.3-30.1); PROTHROMBIN TIME - PATIENT 10.5 SEC (9.8-11.6)
[2016-12-04] MEDS: ATENOLOL 50 MG TAB PO SCH ×2 (08:20→20:25)
[2016-12-04] MEDS: levETIRAcetam 500 MG TAB PO SCH ×2 (08:20→20:25)
[2016-12-04] MEDS: FUROSEMIDE 20 MG TAB PO SCH ×2 (08:20→18:02)
[2016-12-04] MEDS: predniSONE 10 MG TAB PO SCH ×2 (08:20→20:25)
[2016-12-04] MEDS: SODIUM CHLORIDE 0.9% FLUSH 5 ML FLUSH IVF SCH (08:21)
[2016-12-04] MEDS: CHLORHEXIDINE 0.12% (ORAL KIT) 15 ML CUP MT SCH ×2 (08:21→20:25)
[2016-12-04] MEDS: SODIUM CHLORIDE 0.9% FLUSH 5 ML FLUSH FLUSH SCH ×2 (08:21→20:25)
--- NOTE | 2016-12-04 10:31 | HHI.CCPN ---
Subjective Remarks/Hospital Course This is an 81-year-old male who has had multiple readmissions over the past few months for a recurrent right-sided pleural effusion. He represents from his correction facility with recurrent right-sided pleural effusion as well as hypoxia and somnolence. He was found to have significant hypercarbia and a PCO2 in the 90s. He was initially placed on BiPAP and admitted to the [facility]. He became more somnolent and his oxygen saturation began to decline. At this point a critical care medicine is consulted to evaluate and manage his hypercarbic respiratory failure. Because he is failed his trial of noninvasive positive pressure ventilation, we will move towards intubating the patient. I evaluated the patient and he is essentially unresponsive and obtunded and only minimally withdrawing to pain. I can obtain no additional history from the patient. Subjective: 11/09: Early this a.m. at approximately 06:30 the patient was noted to have a grand mal seizure lasting approximately 60 seconds followed by a small tonic- clonic seizure lasting 30 seconds involving the lower extremities. The patient received Ativan 2 mg with cessation of seizure activity. Stat CT of the brain without contrast was obtained showed no acute abnormality. EEG was obtained previously awaiting results. Prior to the event the patient was noted to be on a fentanyl infusion at approximately 250 mcg/h. The patient was noted to be a GCS 10T, squeezing my hand. 11/10: The patient was noted to have multiple seizures requiring interventions with IV Ativan. Described as tonic-clonic in nature with eyes rolled back in the head. Gross motor movement shaking 4 extremities. Today the patient was noted to have a positive growth and blood cultures. WBC count elevated. Ammonia level was drawn less than 10, lactate was noted to be 2.2 this morning. Pleural fluid culture negative growth to date. 11/11: On stimulation patient continues to have jerking movement of all extremities. EEG negative for seizures. Check MRI today. Dr. Kirkland is neurology. Remains on 2 mcg/min of Levophed 11/12: Per neurologist, patient had witnessed with tonic convulsions started over right arm and propagated to left UE and both LE with fluttering of the eyes and upward gaze.Loaded with Dilantin iv infusion and a maintenance dose of 100mg Q8h, Stat EEG negative for seizures. Its unclear to me whether it is seizure or myoclonus 11/13: No change in neuro status. Continues to have jerking movements off lower extremity when stimulated. EEG 2 have been negative for seizures. We'll hold sedation for neuro exam 11/14: On sedation hold opens eyes. Appears to follow commands and upper extremity. Still has some tremulousness of the extremities. Remains off pressors 11/15: Remains on Precedex intermittently following commands for RN. Placed on CPAP tolerating well. No evidence of myoclonus now 11/16: On 1.1 mcg/kg/hr of Precedex. No spontaneous eye opening but moves all extremities spontaneously. Not following commands will reduce Precedex, and start weaning trials 11/17: Mental status significantly improved patient following commands on Precedex. However chest tube was dislodged yesterday evening, now has bilateral pleural effusions left is more than right, appears large. Vent day 10 11/18: Off Precedex following commands upper extremities. But continues to fail C Pap trials due to tachypnea and low tidal volumes. Status post large-volume left thoracentesis yesterday with 1.2 L of old blood-tinged fluid removed. 11/19: Overnight agitated, requiring maximum dose Precedex 1.4 mcg per kg per hr and restraints. Currently heavily sedated. Chest x-ray shows increasing left effusion confirmed by ultrasound. We'll proceed with left pigtail catheter after consent. Continue to hold Coumadin due to hemorrhagic effusion 11/20: Left pigtail chest tube placed yesterday with a 30 mL output. Mentation improving now oriented follows commands. Requiring oxygen by nasal cannula. Slight increase in right effusion seen on chest x-ray 11/21: CT chest shows moderate left-sided pneumothorax. Eating continues to be slightly tachypneic but patient appears comfortable. Agitated requiring 4 point restraints. Also a liver enzymes are increasing most likely secondary to Dilantin. I will DC Dilantin and start him on Keppra 11/22 No acute events overnight. On Precedex drip. Afebrile. CXR this morning showed no evidence of PTX. 11/23 Patient is on Precedex 0.7 awake and alert on 2L oxygen with good sats. 11/24 Patient is off Precedex drip. Afebrile. Awake and alert. 11/25 Called by nurse as patient was diaphoretic, tachypneic, tachycardic, hypertensive minimally responsive and had O2 saturation in 80's he was subsequently intubated and placed on mechanical ventilation. CXR from earlier showed volume loss, consolidation RUL. 11/26 Patient is sedated with Diprivan and intubated. s/p bronch yesterday which showed mucous plugs on right CXR post bronch showed much improved aeration of right lung. Afebrile 11/27: Remains sedated with propofol, orally intubated on mechanical ventilation. 2 left-sided pigtail catheter is in place with posterior pigtail catheter having positive air leak. 11/28: Remains sedated, orally intubated on mechanical ventilation. One of the 2 pigtail catheters on the left side got dislodged in the morning by production shift supervisor RN. Patient did not drop O2 sats. Second pigtail catheter which is still in place does not have any air leak currently. Stat chest x-ray obtained by az which shows small apical pneumothorax on the left. Peak airway pressures 14, patient is not having any issues with hypotension and desaturation. We'll repeat chest x-ray later today to follow-up on pneumothorax and decide regarding placing another chest tube. 11/29 Patient is sedated with Diprivan and intubated. Afebrile. 11/30 The patient remains on heparin infusion for occlusive DVT left cephalic vein , and scattered clots left brachial and left axillary veins. Noted magnesium level was decreased 11/28. Repeat magnesium level pending this a.m., will replete as necessary. 12/01 Tmax 100.2 The patient currently off sedation, not set appropriately when questioned. The patient tolerated CPAP trials 4 hours yesterday. Left pigtail chest tube no leak remains on 40 cm of water pressure. 12/02 Tmax 99.4. Heparin infusion held at 6 AM this morning in anticipation of tracheostomy and PEG placement. Tube feeds have been off since 12 midnight consents are noted in the chart. The patient was noted to remain on CPAP for approximately 4 hours yesterday without difficulty. 12/03: TMAX 99.9. The patient successfully underwent tracheostomy PEG tube placement yesterday. The patient will begin CPAP trials this a.m.. The patient was noted to have DVTs in the now right upper extremity, in conjunction with the existing left upper extremity DVT's. Tube feeds restarted without residuals 6 hours post placement of PEG. 12/04: Afebrile. Patient tolerating tube feeds, no residuals. Patient continues on heparin for occlusive DVT. Patient tolerated CPAP only 3 hours yesterday secondary to thickened secretions. Patient has not had a bowel movement greater than 3 days will increase bowel regimen. Objective Vital Signs Date Time Temp Pulse Resp B/P Pulse Ox O2 Delivery O2 Flow Rate FiO2 12/04/16 10:15 50 12/04/16 07:32 98 12/04/16 06:00 80 12/04/16 04:00 97.8 23 181/77 Intake and Output 12/03/16 12/03/16 12/04/16 08:00 16:00 00:00 Intake Total 510 ml 764 ml 643 ml Output Total 220 ml 600 ml 285 ml Balance 290 ml 164 ml 358 ml Result Diagram: 12/03/16 0253 12/03/16 0253 Other Results Microbiology Date/Time Procedure Status Source Growth 12/02/16 12:55 Gram Stain - Final Complete Bronchial Washings Other 12/02/16 12:55 Bronchial Culture - Final Complete Staphylococcus Aureus Gram Negative [facility] Last Impressions Upper Extremity Ultrasound 11/29/16 0000 Signed Impressions: Service Date/Time: Tuesday, November 29, 2016 11:59 - CONCLUSION: Thrombus as described above. Clot in the deep venous system is accommodation of occlusive and nonocclusive clot. Kun Mendoza MD FACR Chest X-Ray 11/29/16 0000 Signed Impressions: Service Date/Time: Tuesday, November 29, 2016 07:29 - CONCLUSION: No change in bilateral pulmonary opacity. No evidence of pneumothorax. Endotracheal tube tip now 3 cm above the laura. Mathew Guerrero MD Chest CT 11/20/16 0000 Signed Impressions: Service Date/Time: October 09:37 - CONCLUSION: 1. Left pneumothorax without tension 2. Small loculated effusion medial right base 3. Pericardial effusion as above Jimi Chavez MD Liver Ultrasound 11/17/16 0000 Signed Impressions: Service Date/Time: Thursday, November 17, 2016 15:58 - CONCLUSION: 1. Increased liver echogenicity characteristic of mild fatty infiltration or hepatocellular disease. 2. Trace free fluid in the abdomen. Pleural effusions. Mild gallbladder wall thickening. Chaka Campos MD Brain MRI 11/11/16 0000 Signed Impressions: Service Date/Time: Friday, November 11, 2016 12:53 - CONCLUSION: 1. 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 2. 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 The others would be consistent with punctate, remote areas of hemorrhage suggesting possibility of amyloid. Eitan Mendoza MD Head CT 11/09/16 0000 Signed Impressions: Service Date/Time: Wednesday, November 09, 2016 10:29 - CONCLUSION: Stable CT scan of the brain. Pradeep Rodriguez MD Chest Tube Insertion 11/08/16 0000 Signed Impressions: Service Date/Time: Tuesday, November 08, 2016 12:46 - CONCLUSION: Uncomplicated right chest tube placement as above. 1500 cc of fluid removed and sent for culture. Post CT scan reveals a large. pleural rind . The right lung may well not reexpanded. A.m. chest x-ray is pending. Cultures pending. Kun Mendoza MD FACR CT Angiography 11/07/16 0000 Signed Impressions: Service Date/Time: October 20:40 - CONCLUSION: 1. No pulmonary embolus. 2. Marked cardiac enlargement, especially the atria. 3. Bilateral effusions and atelectasis about the same on the left and considerably worse on the right. Right pneumothorax seen previously has resolved. Dhruv Foster MD Objective Remarks GENERAL: Patient is 81yo tracheostomy 8.0 in situ, on sedation vacation the patient nodding responding to questions SKIN: Warm and dry. HEAD: Normocephalic. EYES: No scleral icterus. No injection or drainage. NECK: Supple, trachea midline. No JVD or lymphadenopathy. Orally intubated CARDIOVASCULAR: Regular rate and rhythm without murmurs, gallops, or rubs. RESPIRATORY: Breath sounds equal bilaterally. No accessory muscle use. GASTROINTESTINAL: Abdomen soft, non-tender, nondistended. MUSCULOSKELETAL: No cyanosis, + edema LUE. Neuro:RASS-2. Responding appropriately to yes and no questions. Moving extremities 4. Urinary Catheter: Yes Date of Insertion: Nov 08, 2016 A/P Assessment and Plan Assessment: This is an 81-year-old male with history of prior recurrent right pleural effusions and COPD now presents with acute hypercarbic and hypoxic respiratory failure which has failed noninvasive positive pressure ventilation. Intubated and placed on mechanical ventilation. Covering COPD exacerbation, as well as healthcare associated pneumonia given his history of being on Levaquin at his correction facility. He remains critically ill. Not sure that we will be able to get him through this hospitalization, and his recurrent respiratory failures are clearly making him more deconditioned every time he comes in the hospital. Despite this, daughter continues to request aggressive measures. Extubated 11/18/16. Reintubated 11/25.percutaneous tracheostomy .Continuing CPAP trials. Plan by systems: Neurologic: Myoclonus-resolved Agitated delirium CO2 narcosis-resolved Metabolic encephalopathy Mild dementia -On Diprivan infusion, currently off for sedation. Patient nodding head appropriately to questions. Use Ativan PRN for breakthrough seizures /myoclonus -EEG negative 11/10/15, 11/11/16 (moderate to severe encephalopathy, no seizure) -11/08 CT of the brain-no acute abnormality. 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 Question of amyloid -On Keppra 500 mg by mouth twice a day Respiratory: Acute hypercarbic and hypoxic respiratory failure-extubated - Reintubated 11/25 Recurrent right pleural effusion s/p chest tube placement-dislodged 11/17 New moderate left pneumothorax-resolved Right pneumothorax-resolved Large hemorrhagic left pleural effusion status post thoracentesis 11/17/16, pigtail chest tube 11/19/16 Healthcare associated pneumonia COPD exacerbation Tracheostomy 12/02 POD #3 -Continue with vent support keep sat >92% -Bronchodilators, Mucomyst nebs -s/p Bronch 11/25: Mucous plugs on right CXR post bronch -much improved aeration of right lung Continue prednisone per Dr. Kitchen, -s/p anterior left anterior pigtail chest tube, continues on 20 cm of water suction --Status post left thoracentesis 11/17/16 with 1.2 L of hemorrhagic fluid removed. CXR/US shows reaccumulation of left pleural fluid. pigtail chest tube placed 11/19/1611/08 S/P CT guided IR drainage of recurrent right posterior pleural effusion, unable to perform pleurodesis, accidentally dislodged Monitor CT drainage. Patient has one pigtail catheter on the left side which has no air leak currently on 20 cm of water pressure, no drainage. One of the pigtail catheters got dislodged on 11/28 in a.m. -S/P tracheostomy 8.0 [place]ley 12/02 -12/02CXR-1.2 cm small left pneumothorax, left chest tube on continuous suction 20 cm Cardiovascular: Severe pulmonary hypertension (PASP 85 on Echo 10/08/16, repeat echo 11/19/16 PASP was 47) A. fib RVR Hypertension Moderate to severe TR Continue with BP meds- (captopril and atenolol 11/14/16) --Monitor HR and BP keep MAP>65mmHg --Repeat 2d echo 11/19/16 PASP was 47 compared to 85 on 10/18/16 Renal: Hypernatremia- resolved Monitor renal function, I/O's, electrolytes replacement per protocol. -On Lasix 20mg BID FEN/GI: Acute intravascular volume overload Acute protein calorie malnutritionsevere Elevated LFT's -Monitor LFT's. AST 39, ALT 47, alkaline phosphatase 156 -Glucerna 1.5 with goal rate 45ml/hr, no residuals noted, currently off for procedure placement today -PEG tube placement- 12/02 Heme/ID: Healthcare associated pneumonia, staph aureus in sputum Leukocytosis- Afebrile Thrombocytopenia-resolved -Patient s/p Cefepime and Zithromax 11/08-11/13 and Rocephin 11/15-11/18 ID is following. Rocephin resumed for MSSA pneumonia on 11/26 -11/26 Sputum cx : Staph Aureus 11/08 blood -micrococcus 08/28 possible contaminant - Urine cultures-NGTD --Sputum cx 11/12/16 with staph aureus -Platelet count 98->119 improved, patient continues on heparin infusion will continue to monitor Endocrine: Hyperglycemia of critical illness-resolved -- SSI, medium scale, every 6 hours discontinued 12/01 Prophylaxis: GI Prophylaxis Protonix 40 mg IV every 24 hours DVT Prophylaxis --SCDs Doppler US LUE: Occlusive and non-occlusive clot in cephalic vein, scattered clot in brachial and axillary vein On Heparin drip, Coumadin was placed on hold 11/29/16. Lines: Peripheral IVsx 2. central line if indicated Vital Dispo: Palliative care is following. Discussed with MANAGER CCU at bedside. Plan for possible transfer to [facility], case management and process. Level 3 Physician Kathrine Childers MD Dec 04, 2016 10:30
[2016-12-04] MEDS ORDERED: BISACODYL 10 MG SUPP RECTAL PRN (10:45)
[2016-12-04] MEDS: SENNOSIDES SYRUP 8.8 MG/5 ML CUP PO SCH (11:33)
[2016-12-04] MEDS: POLYETHYLENE GLYCOL 17 GM PKG PO SCH (11:33)
[2016-12-04] MEDS: hydrALAZINE HCL 20 MG/ML VIAL IV PUSH PRN (11:33)
[2016-12-04] MEDS: DOCUSATE SODIUM 100 MG/10 ML UDC PO SCH ×2 (11:33→20:25)
--- NOTE | 2016-12-04 12:11 | RADRPT ---
EXAM DATE/TIME: 12/04/2016 11:18 [facility] COMPARISON: CHEST SINGLE AP, December 03, 2016, 3:42. INDICATIONS : Respiratory failure. MEDICAL HISTORY : Hypercholesterolemia. Congestive heart failure. Chronic obstructive pulmonary disease. Cerebrovascula r accident. Anticoagulant therapy, Warfarin. Afib. Hypertension. Skin cancer. Seizures. SURGICAL HISTORY : Thoracentesis. ENCOUNTER: Subsequent ACUITY: 4 - 6 days PAIN SCORE: Non-responsive. LOCATION: Bilateral chest FINDINGS: Tracheostomy tube is present. There is cardiomegaly, small bilateral effusions and bilateral consolid ation greatest in the left lower lobe. Left-sided chest tube is present. I do not see a pneumothorax. CONCLUSION: 1. I do not see a pneumothorax today however the study is otherwise stable. Don Soto MD on December 04, 2016 at 12:07 Board Certified Radiologist. This report was verified electronically.
[2016-12-04] MEDS: cefTRIAXone INJ 1,000 MG in SODIUM CHLORIDE 0.9% INJ 100 ML IV SCH (15:11)
--- NOTE | 2016-12-04 19:46 | RADRPT ---
EXAM DATE/TIME: 12/04/2016 17:25 [facility] COMPARISON: US ARM RIGHT VENOUS DOPPLER, December 02, 2016, 10:49. INDICATIONS : Bilateral arm deep vein thrombosis. MEDICAL HISTORY : Hypercholesterolemia. Congestive heart failure. CVA. Afib. HTN. COPD. Skin cancer. Anticoagulant th erapy, Warfarin. SURGICAL HISTORY : Thoracentesis. Orthopedic surgery, right knee. ENCOUNTER: Subsequent ACUITY: 4 - 6 days PAIN SCORE: Non-responsive LOCATION: Bilateral arm. FINDINGS: RIGHT UPPER EXTREMITY: Nonocclusive thrombus seen in the right jugular and brachial vein. There is occlusive thrombus in the right cephalic vein from the mid arm to the wrist. LEFT UPPER EXTREMITY: There is nonocclusive thrombus in the left axillary and brachial veins. Superficial thrombus in the l eft cephalic vein throughout the whole arm, patchy occlusive and nonocclusive. CONCLUSION: Bilateral upper extremity DVT as above. Dhruv Foster MD on December 04, 2016 at 19:43 Board Certified Radiologist. This report was verified electronically.
[2016-12-05] VITALS (19 sets, daily range): BP systolic 148–188; BP diastolic 64–77; PULSE 68–99; RESP 14–31; TEMP 97–98.6; O2SAT 90–98
[2016-12-05] MEDS: hydrALAZINE HCL 20 MG/ML VIAL IV PUSH PRN ×3 (02:55→19:39)
[2016-12-05 04:53] LABS: INTERNATIONAL NORMALIZED RATIO 0.9 RATIO; PROTHROMBIN TIME - PATIENT 10.3 SEC (9.8-11.6)
[2016-12-05 04:55] LABS: HEMATOCRIT 32.4 % (39.0-51.0); MEAN CELL VOLUME 98.9 FL (80.0-100.0); MEAN CORPUSCULAR HEMOGLOBIN 34.4 PG (27.0-34.0); MEAN CORPUSCULAR HGB CONC 34.7 % (32.0-36.0); PLATELET COUNT 132 TH/MM3 (150-450); RED BLOOD COUNT 3.28 MIL/MM3 (4.50-5.90); RED CELL DISTRIBUTION WIDTH 15.2 % (11.6-17.2); REVIEW FLAG FINAL; WHITE BLOOD COUNT 8.4 TH/MM3 (4.0-11.0)
[2016-12-05 05:14] LABS: BICARBONATE 40.7 MEQ/L (21.0-32.0); MAGNESIUM 2.3 MG/DL (1.5-2.5); POTASSIUM 4.5 MEQ/L (3.5-5.1)
[2016-12-05 07:52] LABS: APTT (PATIENT) 33.5 SEC (24.3-30.1)
[2016-12-05] MEDS: SODIUM CHLORIDE 0.9% FLUSH 5 ML FLUSH IVF SCH (09:00)
[2016-12-05] MEDS: SODIUM CHLORIDE 0.9% FLUSH 5 ML FLUSH FLUSH SCH ×2 (09:00→20:30)
[2016-12-05] MEDS: DOCUSATE SODIUM 100 MG/10 ML UDC PO SCH ×2 (09:01→20:30)
[2016-12-05] MEDS: CHLORHEXIDINE 0.12% (ORAL KIT) 15 ML CUP MT SCH ×2 (09:01→20:29)
[2016-12-05] MEDS: ATENOLOL 50 MG TAB PO SCH ×2 (09:01→20:30)
[2016-12-05] MEDS: levETIRAcetam 500 MG TAB PO SCH ×2 (09:01→20:29)
[2016-12-05] MEDS: FUROSEMIDE 20 MG TAB PO SCH ×2 (09:01→18:35)
[2016-12-05] MEDS: POLYETHYLENE GLYCOL 17 GM PKG PO SCH (09:01)
[2016-12-05] MEDS: predniSONE 10 MG TAB PO SCH ×2 (09:01→20:30)
[2016-12-05] MEDS: SENNOSIDES SYRUP 8.8 MG/5 ML CUP PO SCH (09:01)
--- NOTE | 2016-12-05 12:27 | HHI.IDPN ---
Subjective Subjective Remarks ID COVERAGE 81 year old male, with recurrent pleural effusions Has been Rxd for MSSA PNA LAst seen by ID November 18 Since then has had placement of 2 CT; one of CT has been removed yesterday Has one CT in L anterior chest Had bronch 11/26 for plugging, C/S MSSA Restarted on Abx 11/26 he has been afebrile though and WBC normal BP good Currently on CPAP Looks comfortable CT output less Temps ok WBC normal CXR stable effusions and opacities Repeat C/S with MSSA and Pseudomonas putida Antibiotics Rocephin Past Medical History Reviewed Allergies: Uncoded Allergies: dairy products (Allergy, Severe, causes mucous buildup in nose/throat, eyes , and lungs, 11/27/16) Objective . Vital Signs Date Time Temp Pulse Resp B/P Pulse Ox O2 Delivery O2 Flow Rate FiO2 12/05/16 11:52 95 55 12/05/16 10:00 79 12/05/16 09:18 93 55 12/05/16 09:18 55 12/05/16 08:00 83 12/05/16 08:00 55 12/05/16 08:00 97.6 83 23 148/71 94 12/05/16 06:00 92 12/05/16 04:01 95 55 12/05/16 04:00 55 12/05/16 04:00 98.2 82 14 167/68 98 12/05/16 04:00 82 12/05/16 02:00 72 12/05/16 01:00 98 55 12/05/16 00:00 55 12/05/16 00:00 98.3 68 16 171/72 96 12/05/16 00:00 68 12/04/16 22:56 97 55 12/04/16 22:42 18 12/04/16 22:00 74 12/04/16 20:00 98.0 78 18 179/75 100 12/04/16 20:00 78 12/04/16 20:00 55 12/04/16 19:26 100 55 12/04/16 18:00 87 12/04/16 16:00 85 12/04/16 16:00 98.3 85 14 161/69 97 12/04/16 16:00 55 12/04/16 15:18 95 50 12/04/16 14:00 81 12/04/16 12/04/16 12/05/16 15:00 23:00 07:00 Intake Total 1157 ml 582 ml 623 ml Output Total 425 ml 500 ml 350 ml Balance 732 ml 82 ml 273 ml IV Total 107 ml 70 ml 75 ml Tube Feeding 690 ml 472 ml 518 ml Other 360 ml 40 ml 30 ml Output Urine Total 425 ml 500 ml 350 ml Stool Total 0 ml 0 ml Chest Tube Drainage Total 0 ml 0 ml . Laboratory Tests Test 12/05/16 03:33 White Blood Count 8.4 TH/MM3 Red Blood Count 3.28 MIL/MM3 Hemoglobin 11.3 GM/DL Hematocrit 32.4 % Mean Corpuscular Volume 98.9 FL Mean Corpuscular Hemoglobin 34.4 PG Mean Corpuscular Hemoglobin 34.7 % Concent Red Cell Distribution Width 15.2 % Platelet Count 132 TH/MM3 Mean Platelet Volume 9.5 FL Laboratory Tests Test 12/05/16 03:33 Sodium Level 144 MEQ/L Potassium Level 4.5 MEQ/L Chloride Level 98 MEQ/L Carbon Dioxide Level 40.7 MEQ/L Anion Gap 5 MEQ/L Blood Urea Nitrogen 27 MG/DL Creatinine 0.46 MG/DL Estimat Glomerular Filtration 176 ML/MIN Rate Random Glucose 125 MG/DL Calcium Level 8.8 MG/DL Phosphorus Level 2.5 MG/DL Magnesium Level 2.3 MG/DL Microbiology Date/Time Procedure Status Source Growth 12/02/16 12:55 Cancelled Sputum Endotracheal 12/02/16 12:55 Cancelled Sputum Endotracheal 12/02/16 12:55 Gram Stain - Final Complete Bronchial Washings Other 12/02/16 12:55 Bronchial Culture - Final Complete Staphylococcus Aureus Pseudo Fluorescens/Put[place] 12/02/16 12:55 Gram Stain - Final Complete Bronchial Washings Other 12/02/16 12:55 Bronchial Culture - Final Complete Staphylococcus Aureus Pseudo Fluorescens/Putida Imaging Upper Extremity Ultrasound 12/04/16 0000 Signed Impressions: Service Date/Time: Sunday, December 04, 2016 17:25 - CONCLUSION: Bilateral upper extremity DVT as above. Dhruv Foster MD Chest X-Ray 12/04/16 0000 Signed Impressions: Service Date/Time: Sunday, December 04, 2016 11:18 - CONCLUSION: 1. I do not see a pneumothorax today however the study is otherwise stable. Don Soto MD Chest X-Ray 12/03/16 0600 Signed Impressions: Service Date/Time: Saturday, December 03, 2016 03:42 - CONCLUSION: 1. Bibasilar and right perihilar consolidation. 2. Cardiomegaly. 3. Decreasing small left apical pneumothorax. Dre Florentino MD Last Impressions Chest X-Ray 11/17/16 0600 Signed Impressions: Service Date/Time: Thursday, November 17, 2016 03:05 - CONCLUSION: Unchanged cardiomegaly, bilateral pleural effusions, and bilateral pulmonary infiltrates. Charbel Fuchs Jr., MD Liver Ultrasound 11/17/16 0000 Signed Impressions: Service Date/Time: Thursday, November 17, 2016 15:58 - CONCLUSION: 1. Increased liver echogenicity characteristic of mild fatty infiltration or hepatocellular disease. 2. Trace free fluid in the abdomen. Pleural effusions. Mild gallbladder wall thickening. Chaka Campos MD Brain MRI 11/11/16 0000 Signed Impressions: Service Date/Time: Friday, November 11, 2016 12:53 - CONCLUSION: 1. 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 2. 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 The others would be consistent with punctate, remote areas of hemorrhage suggesting possibility of amyloid. Eitan Mendoza MD Head CT 11/09/16 0000 Signed Impressions: Service Date/Time: Wednesday, November 09, 2016 10:29 - CONCLUSION: Stable CT scan of the brain. Pradeep Rodriguez MD Chest Tube Insertion 11/08/16 0000 Signed Impressions: Service Date/Time: Tuesday, November 08, 2016 12:46 - CONCLUSION: Uncomplicated right chest tube placement as above. 1500 cc of fluid removed and sent for culture. Post CT scan reveals a large. pleural rind . The right lung may well not reexpanded. A.m. chest x-ray is pending. Cultures pending. Kun Mendoza MD FACR CT Angiography 11/07/16 0000 Signed Impressions: Service Date/Time: October 20:40 - CONCLUSION: 1. No pulmonary embolus. 2. Marked cardiac enlargement, especially the atria. 3. Bilateral effusions and atelectasis about the same on the left and considerably worse on the right. Right pneumothorax seen previously has resolved. Dhruv Foster MD Physical Exam GENERAL: Thin male, on CPAP, not in distress SKIN: Dry, decreased turgor, some scattered ecchymoses HEENT: No scleral icterus. [place] conjunctiva. NO nasal drainage NECK: Trach site is ok. CARDIOVASCULAR: Regular rate and rhythm without murmurs, gallops, or rubs. RESPIRATORY/CHEST: Coarse BS cristina, decreased at bases GASTROINTESTINAL: Abdomen mildly distended, not tender. PEg site ok. Bowel sounds present. GENITOURINARY: Without palpable bladder distension. Vital catheter in place with clear urine MUSCULOSKELETAL: Extremities without clubbing, cyanosis, or edema. Chronic hyperpigmentation BLE NEUROLOGICAL: Sedated PSYCHIATRIC: calm; cooperative Assessment & Plan Remarks Micrococcus bacteremia, low grade doubt clin significance Recurrent R sided pleraul effusion, clx are negative Suspected sz, neuro w/u in progress - EEG neg - MRI ? amyloidosis Low grade leukocytosis: resolved Respiratory failure, S/P trach MSSA PNA S/P RX Pleural effusion not infected Persistent (+) C/S with MSSA and Pseudo putida - MSSA C/W colonization - ?Pseudomonas adding to vent dependence PLAN: Stop Rocephin Give 7 days Tobra nebs Clinically stable from ID standpoint Monitor for recurrent fevers, and leukocytosis D/W Diana Spear MD Dec 05, 2016 12:27
--- NOTE | 2016-12-05 13:07 | HHI.CCPN ---
Subjective Remarks/Hospital Course This is an 81-year-old male who has had multiple readmissions over the past few months for a recurrent right-sided pleural effusion. [facility] with recurrent right-sided pleural effusion as well as hypoxia and somnolence. He was found to have significant hypercarbia and a PCO2 in the 90s. He was initially placed on BiPAP and admitted to the [facility]. He became more somnolent and his oxygen saturation began to decline. At this point a critical care medicine is consulted to evaluate and manage his hypercarbic respiratory failure. Because he is failed his trial of noninvasive positive pressure ventilation, we will move towards intubating the patient. I evaluated the patient and he is essentially unresponsive and obtunded and only minimally withdrawing to pain. I can obtain no additional history from the patient. Subjective: 11/09: Early this a.m. at approximately 06:30 the patient was noted to have a grand mal seizure lasting approximately 60 seconds followed by a small tonic- clonic seizure lasting 30 seconds involving the lower extremities. The patient received Ativan 2 mg with cessation of seizure activity. Stat CT of the brain without contrast was obtained showed no acute abnormality. EEG was obtained previously awaiting results. Prior to the event the patient was noted to be on a fentanyl infusion at approximately 250 mcg/h. The patient was noted to be a GCS 10T, squeezing my hand. 11/10: The patient was noted to have multiple seizures requiring interventions with IV Ativan. Described as tonic-clonic in nature with eyes rolled back in the head. Gross motor movement shaking 4 extremities. Today the patient was noted to have a positive growth and blood cultures. WBC count elevated. Ammonia level was drawn less than 10, lactate was noted to be 2.2 this morning. Pleural fluid culture negative growth to date. 11/11: On stimulation patient continues to have jerking movement of all extremities. EEG negative for seizures. Check MRI today. Dr. Kirkland is neurology. Remains on 2 mcg/min of Levophed 11/12: Per neurologist, patient had witnessed with tonic convulsions started over right arm and propagated to left UE and both LE with fluttering of the eyes and upward gaze.Loaded with Dilantin iv infusion and a maintenance dose of 100mg Q8h, Stat EEG negative for seizures. Its unclear to me whether it is seizure or myoclonus 11/13: No change in neuro status. Continues to have jerking movements off lower extremity when stimulated. EEG 2 have been negative for seizures. We'll hold sedation for neuro exam 11/14: On sedation hold opens eyes. Appears to follow commands and upper extremity. Still has some tremulousness of the extremities. Remains off pressors 11/15: Remains on Precedex intermittently following commands for RN. Placed on CPAP tolerating well. No evidence of myoclonus now 11/16: On 1.1 mcg/kg/hr of Precedex. No spontaneous eye opening but moves all extremities spontaneously. Not following commands will reduce Precedex, and start weaning trials 11/17: Mental status significantly improved patient following commands on Precedex. However chest tube was dislodged yesterday evening, now has bilateral pleural effusions left is more than right, appears large. Vent day 10 11/18: Off Precedex following commands upper extremities. But continues to fail C Pap trials due to tachypnea and low tidal volumes. Status post large-volume left thoracentesis yesterday with 1.2 L of old blood-tinged fluid removed. 11/19: Overnight agitated, requiring maximum dose Precedex 1.4 mcg per kg per hr and restraints. Currently heavily sedated. Chest x-ray shows increasing left effusion confirmed by ultrasound. We'll proceed with left pigtail catheter after consent. Continue to hold Coumadin due to hemorrhagic effusion 11/20: Left pigtail chest tube placed yesterday with a 30 mL output. Mentation improving now oriented follows commands. Requiring oxygen by nasal cannula. Slight increase in right effusion seen on chest x-ray 11/21: CT chest shows moderate left-sided pneumothorax. Eating continues to be slightly tachypneic but patient appears comfortable. Agitated requiring 4 point restraints. Also a liver enzymes are increasing most likely secondary to Dilantin. I will DC Dilantin and start him on Keppra 11/22 No acute events overnight. On Precedex drip. Afebrile. CXR this morning showed no evidence of PTX. 11/23 Patient is on Precedex 0.7 awake and alert on 2L oxygen with good sats. 11/24 Patient is off Precedex drip. Afebrile. Awake and alert. 11/25 Called by nurse as patient was diaphoretic, tachypneic, tachycardic, hypertensive minimally responsive and had O2 saturation in 80's he was subsequently intubated and placed on mechanical ventilation. CXR from earlier showed volume loss, consolidation RUL. 11/26 Patient is sedated with Diprivan and intubated. s/p bronch yesterday which showed mucous plugs on right CXR post bronch showed much improved aeration of right lung. Afebrile 11/27: Remains sedated with propofol, orally intubated on mechanical ventilation. 2 left-sided pigtail catheter is in place with posterior pigtail catheter having positive air leak. 11/28: Remains sedated, orally intubated on mechanical ventilation. One of the 2 pigtail catheters on the left side got dislodged in the morning by evening or night nurse supervisor RN. Patient did not drop O2 sats. Second pigtail catheter which is still in place does not have any air leak currently. Stat chest x-ray obtained by id which shows small apical pneumothorax on the left. Peak airway pressures 14, patient is not having any issues with hypotension and desaturation. We'll repeat chest x-ray later today to follow-up on pneumothorax and decide regarding placing another chest tube. 11/29 Patient is sedated with Diprivan and intubated. Afebrile. 11/30 The patient remains on heparin infusion for occlusive DVT left cephalic vein , and scattered clots left brachial and left axillary veins. Noted magnesium level was decreased 11/28. Repeat magnesium level pending this a.m., will replete as necessary. 12/01 Tmax 100.2 The patient currently off sedation, not set appropriately when questioned. The patient tolerated CPAP trials 4 hours yesterday. Left pigtail chest tube no leak remains on 40 cm of water pressure. 12/02 Tmax 99.4. Heparin infusion held at 6 AM this morning in anticipation of tracheostomy and PEG placement. Tube feeds have been off since 12 midnight consents are noted in the chart. The patient was noted to remain on CPAP for approximately 4 hours yesterday without difficulty. 12/03: TMAX 99.9. The patient successfully underwent tracheostomy PEG tube placement yesterday. The patient will begin CPAP trials this a.m.. The patient was noted to have DVTs in the now right upper extremity, in conjunction with the existing left upper extremity DVT's. Tube feeds restarted without residuals 6 hours post placement of PEG. 12/04: Afebrile. Patient tolerating tube feeds, no residuals. Patient continues on heparin for occlusive DVT. Patient tolerated CPAP only 3 hours yesterday secondary to thickened secretions. Patient has not had a bowel movement greater than 3 days will increase bowel regimen. 12/05:Afebrile. Sedation discontinued, the patient is awake and alert, responsive to commands. Bronchial washings revealed Pseudomonas [place] and placed on tobramycin nebulizers 7 days. ID following, Dr. Hameed.Peer to peer planned telephone consultation today [facility]. Patient continues on heparin infusion for occlusive and nonocclusive DVT bilateral upper extremities. Objective Vital Signs Date Time Temp Pulse Resp B/P Pulse Ox O2 Delivery O2 Flow Rate FiO2 12/05/16 12:17 55 12/05/16 12:00 98.6 78 22 178/74 96 Intake and Output 12/04/16 12/04/16 12/05/16 08:00 16:00 00:00 Intake Total 550 ml 1157 ml 582 ml Output Total 275 ml 425 ml 500 ml Balance 275 ml 732 ml 82 ml Result Diagram: 12/05/16 0333 12/05/16 0333 Imaging Last Impressions Upper Extremity Ultrasound 11/29/16 0000 Signed Impressions: Service Date/Time: Tuesday, November 29, 2016 11:59 - CONCLUSION: Thrombus as described above. Clot in the deep venous system is accommodation of occlusive and nonocclusive clot. Kun Mendoza MD FACR Chest X-Ray 11/29/16 0000 Signed Impressions: Service Date/Time: Tuesday, November 29, 2016 07:29 - CONCLUSION: No change in bilateral pulmonary opacity. No evidence of pneumothorax. Endotracheal tube tip now 3 cm above the laura. Mathew Guerrero MD Chest CT 11/20/16 0000 Signed Impressions: Service Date/Time: October 09:37 - CONCLUSION: 1. Left pneumothorax without tension 2. Small loculated effusion medial right base 3. Pericardial effusion as above Jimi Chavez MD Liver Ultrasound 11/17/16 0000 Signed Impressions: Service Date/Time: Thursday, November 17, 2016 15:58 - CONCLUSION: 1. Increased liver echogenicity characteristic of mild fatty infiltration or hepatocellular disease. 2. Trace free fluid in the abdomen. Pleural effusions. Mild gallbladder wall thickening. Chaka Campos MD Brain MRI 11/11/16 0000 Signed Impressions: Service Date/Time: Friday, November 11, 2016 12:53 - CONCLUSION: 1. 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 2. 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 The others would be consistent with punctate, remote areas of hemorrhage suggesting possibility of amyloid. Eitan Mendoza MD Head CT 11/09/16 0000 Signed Impressions: Service Date/Time: Wednesday, November 09, 2016 10:29 - CONCLUSION: Stable CT scan of the brain. Pradeep Rodriguez MD Chest Tube Insertion 11/08/16 0000 Signed Impressions: Service Date/Time: Tuesday, November 08, 2016 12:46 - CONCLUSION: Uncomplicated right chest tube placement as above. 1500 cc of fluid removed and sent for culture. Post CT scan reveals a large. pleural rind . The right lung may well not reexpanded. A.m. chest x-ray is pending. Cultures pending. Kun Mendoza MD FACR CT Angiography 11/07/16 0000 Signed Impressions: Service Date/Time: October 20:40 - CONCLUSION: 1. No pulmonary embolus. 2. Marked cardiac enlargement, especially the atria. 3. Bilateral effusions and atelectasis about the same on the left and considerably worse on the right. Right pneumothorax seen previously has resolved. Dhruv Foster MD Objective Remarks GENERAL: Patient is 81yo tracheostomy 8.0 in situ, on sedation vacation the patient nodding responding to questions SKIN: Warm and dry. HEAD: Normocephalic. EYES: No scleral icterus. No injection or drainage. NECK: Supple, trachea midline. No JVD or lymphadenopathy. Orally intubated CARDIOVASCULAR: Regular rate and rhythm without murmurs, gallops, or rubs. RESPIRATORY: Breath sounds equal bilaterally. No accessory muscle use. GASTROINTESTINAL: Abdomen soft, non-tender, nondistended. MUSCULOSKELETAL: No cyanosis, + edema LUE. Neuro:RASS-2. Responding appropriately to yes and no questions. Moving extremities 4. Urinary Catheter: Yes Date of Insertion: Nov 08, 2016 A/P Assessment and Plan Assessment: This is an 81-year-old male with history of prior recurrent right pleural effusions and COPD now presents with acute hypercarbic and hypoxic respiratory failure which has failed noninvasive positive pressure ventilation. Intubated and placed on mechanical ventilation. Covering COPD exacerbation, as well as healthcare associated pneumonia given his history of being on Levaquin [facility] facility. He remains critically ill. Not sure that we will be able to get him through this hospitalization, and his recurrent respiratory failures are clearly making him more deconditioned every time he comes in the hospital. Despite this, daughter continues to request aggressive measures. Extubated 11/18/16. Reintubated 11/25.percutaneous tracheostomy .Continuing CPAP trials. Plan by systems: Neurologic: Myoclonus-resolved Agitated delirium CO2 narcosis-resolved Metabolic encephalopathy Mild dementia -IV sedation discontinued 12/05. Patient nodding head appropriately to questions. Use Ativan PRN for breakthrough seizures /myoclonus -EEG negative 11/10/15, 11/11/16 (moderate to severe encephalopathy, no seizure) -11/08 CT of the brain-no acute abnormality. 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 Question of amyloid -On Keppra 500 mg by mouth twice a day Respiratory: Acute hypercarbic and hypoxic respiratory failure-extubated - Reintubated 11/25 Recurrent right pleural effusion s/p chest tube placement-dislodged 11/17 New moderate left pneumothorax-resolved Right pneumothorax-resolved Large hemorrhagic left pleural effusion status post thoracentesis 11/17/16, pigtail chest tube 11/19/16 Healthcare associated pneumonia COPD exacerbation Tracheostomy 12/02 POD #4 -Continue with vent support keep sat >92% -Bronchodilators, Mucomyst nebs -s/p Bronch 11/25: Mucous plugs on right CXR post bronch -much improved aeration of right lung Continue prednisone per Dr. Kitchen, -s/p anterior left anterior pigtail chest tube, continues on 20 cm of water suction --Status post left thoracentesis 11/17/16 with 1.2 L of hemorrhagic fluid removed. CXR/US shows reaccumulation of left pleural fluid. pigtail chest tube placed 11/19/1611/08 S/P CT guided IR drainage of recurrent right posterior pleural effusion, unable to perform pleurodesis, accidentally dislodged Monitor CT drainage. Patient has one pigtail catheter on the left side which has no air leak currently on 20 cm of water pressure, no drainage. One of the pigtail catheters got dislodged on 11/28 in a.m. -S/P tracheostomy 8.0 Shiley 12/02 -12/02CXR-1.2 cm small left pneumothorax, left chest tube on continuous suction 20 cmH2O -CPAP trials continued, patient has slightly thick secretions, lasted approximately 3 hours yesterday Cardiovascular: Severe pulmonary hypertension (PASP 85 on Echo 10/08/16, repeat echo 11/19/16 PASP was 47) A. fib RVR Hypertension Moderate to severe TR Continue with BP meds- (captopril and atenolol 11/14/16). Captopril reinitiated at 25 mg 3 times a day --Monitor HR and BP keep MAP>65mmHg --Repeat 2d echo 11/19/16 PASP was 47 compared to 85 on 10/18/16 Renal: Hypernatremia- resolved Monitor renal function, I/O's, electrolytes replacement per protocol. -On Lasix 20mg BID FEN/GI: Acute intravascular volume overload Acute protein calorie malnutritionsevere Elevated LFT's -Continue to monitor BMP -Glucerna 1.5 with goal rate 45ml/hr, no residuals noted -PEG tube placement- 12/02. Site clean without erythema or drainage Heme/ID: Healthcare associated pneumonia, staph aureus in sputum Leukocytosis-resolved Thrombocytopenia-resolved -Patient s/p Cefepime and Zithromax 11/08-11/13 and Rocephin 11/15-11/18 ID is following. Rocephin resumed for MSSA pneumonia on 11/26 -11/26 Sputum cx : Staph Aureus 11/08 blood -micrococcus 08/28 possible contaminant - Urine cultures-NGTD --Sputum cx 11/12/16 with staph aureus -Platelet count 119->132 improved, patient continues on heparin infusion will continue to monitor. Plan to transition back to Coumadin if no additional invasive interventions required Endocrine: Hyperglycemia of critical illness-resolved -- SSI, medium scale, every 6 hours discontinued 12/01 Prophylaxis: GI Prophylaxis Protonix 40 mg IV every 24 hours DVT Prophylaxis --SCDs Doppler US LUE: Occlusive and non-occlusive clot in cephalic vein, scattered clot in brachial and axillary vein On Heparin drip, Coumadin was placed on hold 11/29/16. Lines: Peripheral IVsx 2. central line if indicated Vital Dispo: Palliative care is following. Discussed with HEALTH SCIENCE SPECIALIST at bedside. Plan for possible [facility], PO2 P a phone call scheduled for today Level 3 Physician Kathrine Childers MD Dec 05, 2016 13:07
[2016-12-05] MEDS: RESP: TOBRAMYCIN SULFATE 80 MG/2 ML NEB NEB SCH ×2 (14:10→20:18)
[2016-12-05] MEDS: CAPTOPRIL 25 MG TAB PO SCH ×2 (14:32→22:06)
[2016-12-05 16:52] LABS: APTT (PATIENT) GREATER THAN 153.4 SEC (24.3-30.1)
[2016-12-05 17:47] LABS: APTT (PATIENT) 37.8 SEC (24.3-30.1)
[2016-12-05 18:06] LABS: PROTHROMBIN TIME - PATIENT 10.7 SEC (9.8-11.6)
[2016-12-05 23:34] LABS: APTT (PATIENT) 49.7 SEC (24.3-30.1)
[2016-12-06] VITALS (17 sets, daily range): BP systolic 117–189; BP diastolic 47–93; PULSE 83–93; RESP 20–34; TEMP 98.3–99; O2SAT 91–100
[2016-12-06] MEDS: HEPARIN-D5W INJ 250 ML IV SCH (00:15)
[2016-12-06] MEDS: LABETALOL HCL 100 MG/20 ML VIAL IV PUSH PRN ×2 (02:10→06:05)
--- NOTE | 2016-12-06 05:16 | RADRPT ---
EXAM DATE/TIME: 12/06/2016 03:49 [facility] COMPARISON: CHEST SINGLE AP, December 04, 2016, 11:18. INDICATIONS : Evaluate for respiratory disease. MEDICAL HISTORY : Hypercholesterolemia. Congestive heart failure. Chronic obstructive pulmonary disease. Cerebrovascula r accident. Anticoagulant therapy, Warfarin. Afib. Hypertension. Skin cancer. Seizures. SURGICAL HISTORY : Thoracentesis. ENCOUNTER: Subsequent ACUITY: 3 weeks PAIN SCORE: Non-responsive. LOCATION: chest FINDINGS: Tracheostomy tube remains in place. No pneumothorax. Continues to be a patchy infiltrate in the right lung base. The heart size is diffusely enlarged. The small left-sided chest tube remains in place. T here's been no significant changes compared to the prior examination. CONCLUSION: No evidence of pneumothorax. No significant changes. Pradeep Rodriguez MD on December 06, 2016 at 5:13 Board Certified Radiologist. This report was verified electronically.
[2016-12-06 05:32] LABS: APTT (PATIENT) 50.2 SEC (24.3-30.1); PROTHROMBIN TIME - PATIENT 11.1 SEC (9.8-11.6)
[2016-12-06] MEDS: CAPTOPRIL 25 MG TAB PO SCH ×3 (06:08→22:36)
[2016-12-06] MEDS: RESP: TOBRAMYCIN SULFATE 80 MG/2 ML NEB NEB SCH ×2 (07:42→19:20)
[2016-12-06] MEDS: SODIUM CHLORIDE 0.9% FLUSH 5 ML FLUSH IVF SCH (09:00)
[2016-12-06] MEDS: SODIUM CHLORIDE 0.9% FLUSH 5 ML FLUSH FLUSH SCH ×2 (09:00→20:32)
[2016-12-06] MEDS: predniSONE 10 MG TAB PO SCH ×2 (09:11→20:32)
[2016-12-06] MEDS: DOCUSATE SODIUM 100 MG/10 ML UDC PO SCH ×2 (09:12→20:32)
[2016-12-06] MEDS: levETIRAcetam 500 MG TAB PO SCH ×2 (09:12→20:31)
[2016-12-06] MEDS: POLYETHYLENE GLYCOL 17 GM PKG PO SCH (09:12)
[2016-12-06] MEDS: FUROSEMIDE 20 MG TAB PO SCH ×2 (09:12→16:54)
[2016-12-06] MEDS: ATENOLOL 50 MG TAB PO SCH ×2 (09:12→20:31)
[2016-12-06] MEDS: SENNOSIDES SYRUP 8.8 MG/5 ML CUP PO SCH (09:12)
[2016-12-06] MEDS: CHLORHEXIDINE 0.12% (ORAL KIT) 15 ML CUP MT SCH ×2 (09:12→20:00)
[2016-12-06] MEDS: HALOPERIDOL LACTATE 5 MG/ML AMP IV PRN (10:05)
--- NOTE | 2016-12-06 10:21 | HHI.IDPN ---
Subjective Subjective Remarks ID COVERAGE 81 year old male, with recurrent pleural effusions Has been Rxd for MSSA PNA S/P trach 12/02 Temps ok BP ok Being eval for [facility] Looks comfortable On CPAP since around 730 am Previous problem with plugging He is restless in bed CT output minimal Temps ok WBC normal CXR stable effusions and opacities Repeat C/S with MSSA and Pseudomonas putida Antibiotics Tobra nebs Lines PIV with no evidence of infection Past Medical History Reviewed Allergies: Uncoded Allergies: dairy products (Allergy, Severe, causes mucous buildup in nose/throat, eyes , and lungs, 11/27/16) Objective . Vital Signs Date Time Temp Pulse Resp B/P Pulse Ox O2 Delivery O2 Flow Rate FiO2 12/06/16 08:00 98.8 86 34 189/70 94 12/06/16 08:00 50 12/06/16 08:00 86 12/06/16 07:44 94 50 12/06/16 07:00 50 12/06/16 06:00 88 12/06/16 04:00 60 12/06/16 04:00 98.3 85 20 167/93 91 12/06/16 04:00 85 12/06/16 03:38 100 50 12/06/16 02:00 92 12/06/16 00:00 60 12/06/16 00:00 83 12/06/16 00:00 98.6 83 22 168/72 95 12/05/16 23:52 94 60 12/05/16 22:00 99 12/05/16 20:22 93 60 12/05/16 20:00 87 12/05/16 20:00 60 12/05/16 20:00 98.4 87 20 188/77 97 12/05/16 18:00 89 12/05/16 16:04 93 60 12/05/16 16:00 55 12/05/16 16:00 84 12/05/16 16:00 97.0 84 31 156/64 90 12/05/16 14:00 86 12/05/16 12:17 55 12/05/16 12:00 98.6 78 22 178/74 96 12/05/16 12:00 78 12/05/16 11:52 95 55 12/05/16 12/05/16 12/06/16 15:00 23:00 07:00 Intake Total 919 ml 675 ml 567 ml Output Total 528 ml 450 ml 405 ml Balance 391 ml 225 ml 162 ml IV Total 97 ml 86 ml 76 ml Tube Feeding 642 ml 529 ml 451 ml Tube Irrigant 180 ml Other 60 ml 40 ml Output Urine Total 525 ml 450 ml 400 ml Chest Tube Drainage Total 3 ml 0 ml 5 ml # Bowel Movements 0 1 0 . Laboratory Tests Test 12/05/16 03:33 White Blood Count 8.4 TH/MM3 Red Blood Count 3.28 MIL/MM3 Hemoglobin 11.3 GM/DL Hematocrit 32.4 % Mean Corpuscular Volume 98.9 FL Mean Corpuscular Hemoglobin 34.4 PG Mean Corpuscular Hemoglobin 34.7 % Concent Red Cell Distribution Width 15.2 % Platelet Count 132 TH/MM3 Mean Platelet Volume 9.5 FL Laboratory Tests Test 12/05/16 03:33 Sodium Level 144 MEQ/L Potassium Level 4.5 MEQ/L Chloride Level 98 MEQ/L Carbon Dioxide Level 40.7 MEQ/L Anion Gap 5 MEQ/L Blood Urea Nitrogen 27 MG/DL Creatinine 0.46 MG/DL Estimat Glomerular Filtration 176 ML/MIN Rate Random Glucose 125 MG/DL Calcium Level 8.8 MG/DL Phosphorus Level 2.5 MG/DL Magnesium Level 2.3 MG/DL Imaging Upper Extremity Ultrasound 12/04/16 0000 Signed Impressions: Service Date/Time: Sunday, December 04, 2016 17:25 - CONCLUSION: Bilateral upper extremity DVT as above. Dhruv Foster MD Chest X-Ray 12/04/16 0000 Signed Impressions: Service Date/Time: Sunday, December 04, 2016 11:18 - CONCLUSION: 1. I do not see a pneumothorax today however the study is otherwise stable. Don Soto MD Chest X-Ray 12/03/16 0600 Signed Impressions: Service Date/Time: Saturday, December 03, 2016 03:42 - CONCLUSION: 1. Bibasilar and right perihilar consolidation. 2. Cardiomegaly. 3. Decreasing small left apical pneumothorax. Dre Florentino MD Last Impressions Chest X-Ray 11/17/16 0600 Signed Impressions: Service Date/Time: Thursday, November 17, 2016 03:05 - CONCLUSION: Unchanged cardiomegaly, bilateral pleural effusions, and bilateral pulmonary infiltrates. Charbel Fuchs Jr., MD Liver Ultrasound 11/17/16 0000 Signed Impressions: Service Date/Time: Thursday, November 17, 2016 15:58 - CONCLUSION: 1. Increased liver echogenicity characteristic of mild fatty infiltration or hepatocellular disease. 2. Trace free fluid in the abdomen. Pleural effusions. Mild gallbladder wall thickening. Chaka Campos MD Brain MRI 11/11/16 0000 Signed Impressions: Service Date/Time: Friday, November 11, 2016 12:53 - CONCLUSION: 1. 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 2. 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 The others would be consistent with punctate, remote areas of hemorrhage suggesting possibility of amyloid. Eitan Mendoza MD Head CT 11/09/16 0000 Signed Impressions: Service Date/Time: Wednesday, November 09, 2016 10:29 - CONCLUSION: Stable CT scan of the brain. Pradeep Rodriguez MD Chest Tube Insertion 11/08/16 0000 Signed Impressions: Service Date/Time: Tuesday, November 08, 2016 12:46 - CONCLUSION: Uncomplicated right chest tube placement as above. 1500 cc of fluid removed and sent for culture. Post CT scan reveals a large. pleural rind . The right lung may well not reexpanded. A.m. chest x-ray is pending. Cultures pending. Kun Mendoza MD FACR CT Angiography 11/07/16 0000 Signed Impressions: Service Date/Time: October 20:40 - CONCLUSION: 1. No pulmonary embolus. 2. Marked cardiac enlargement, especially the atria. 3. Bilateral effusions and atelectasis about the same on the left and considerably worse on the right. Right pneumothorax seen previously has resolved. Dhruv Foster MD Physical Exam GENERAL: Thin male, on CPAP, not in distress. [place] and moving a lot in his bed SKIN: Dry, decreased turgor, some scattered ecchymoses HEENT: No scleral icterus. [place] conjunctiva. No nasal drainage NECK: Trach site is ok. CARDIOVASCULAR: Regular rate and rhythm without murmurs, gallops, or rubs. RESPIRATORY/CHEST: Coarse BS crsitina, decreased at bases GASTROINTESTINAL: Abdomen mildly distended, not tender. PEG site ok. Bowel sounds present. GENITOURINARY: Vital catheter in place with clear urine MUSCULOSKELETAL: Extremities without clubbing, cyanosis, or edema. Chronic hyperpigmentation BLE NEUROLOGICAL: Awake, moves all his extremities PSYCHIATRIC: Restless LINE: PIV with no evidence of infection Assessment & Plan Remarks Micrococcus bacteremia, low grade doubt clin significance Recurrent R sided pleraul effusion, clx are negative Suspected sz, neuro w/u in progress - EEG neg - MRI ? amyloidosis Low grade leukocytosis: resolved Respiratory failure, S/P trach MSSA PNA S/P RX Pleural effusion not infected Persistent (+) C/S with MSSA and Pseudo putida - MSSA C/W colonization - ?Pseudomonas adding to vent dependence PLAN: Stop Rocephin Give 7 days Tobra nebs Clinically stable from ID standpoint Monitor for recurrent fevers, and leukocytosis D/W RN Diana Hameed MD Dec 06, 2016 10:21
[2016-12-06 13:03] LABS: APTT (PATIENT) 52.2 SEC (24.3-30.1)
--- NOTE | 2016-12-06 14:07 | HHI.HCPN ---
Reason for visit a. To assist with evaluation and management of symptoms including: agitation, pain, dyspnea, debility b. To assist medical decision maker(s) with: better understanding of current medical conditions; weighing benefits/burdens of medical treatment options; making medical treatment decisions. . (Sujatha Elliott) Subjective/Interval History Patient seen and assessed this morning in the [facility], room 500 status post tracheostomy and PEG tube on 12/02/16. Patient tolerating CPAP symptoms 7:30 this morning. Patient is awake and alert, follows simple commands. Afebrile. WBC within normal limits. Bronchial washings growing Pseudomonas Put[place], started on on tobramycin nebulizers 7 days. Infectious disease continues to follow, Dr. Hameed. = Follow-up sputum culture on 11/26/16 remains positive for staph aureus. = Pleural fluid culture on 10/28/16 was negative; cytology negative for malignancy. 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 CXR on 12/04/16 demonstrates cardiomegaly, small bilateral pleural effusions and bilateral consolidation greatest in the left lower lobe. Follow-up chest x-ray this morning shows no evidence of pneumothorax,no significant change otherwise. Doppler ultrasound on 12/04/16 showing bilateral upper extremity DVTs. Per notes , RUE with nonocclusive thrombus in the right jugular and brachial vein; there is occlusive thrombus in the right cephalic vein from the mid arm to wrist. LUE with nonocclusive thrombus in the left axillary and brachial veins; superficial thrombus in the left cephalic vein throughout the whole arm, patchy occlusive and nonocclusive. Gastric biopsy showed chronic gastritis, negative for H. pylori. Patient tolerating tube feedings is post PEG tube placement on 12/02/16. Receiving Glucerna 1.5 at 60 mL's per hour. BMI 18.8. Albumin level of 1.9. . Family/friend interactions Daughter, Raissa, expressing continued aggressive goals. It is unlikely these goals will change. . (Sujatha Elliott) Advance Directives Advance Directive Specifics Health Care Surrogate(s): == No written designation of health care surrogacy. == Patient , has on several occasions, verbally stated that he wants BOTH of his children to participate in health care decision making if he is incapacitated to do so. . Documented care wishes: Patient's daughter has indicated during prior hospitalization that her father completed some type of written advanced directives but has not provided copies of these documents to date. . (Sujatha Elliott) Objective Vital Signs Date Time Temp Pulse Resp B/P Pulse Ox O2 Delivery O2 Flow Rate FiO2 12/06/16 13:35 95 50 12/06/16 10:00 85 12/06/16 08:00 98.8 86 34 189/70 94 12/06/16 08:00 50 12/06/16 08:00 86 12/06/16 07:44 94 50 12/06/16 07:00 50 12/06/16 06:00 88 12/06/16 04:00 60 12/06/16 04:00 98.3 85 20 167/93 91 12/06/16 04:00 85 12/06/16 03:38 100 50 12/06/16 02:00 92 12/06/16 00:00 60 12/06/16 00:00 83 12/06/16 00:00 98.6 83 22 168/72 95 12/05/16 23:52 94 60 12/05/16 22:00 99 12/05/16 20:22 93 60 12/05/16 20:00 87 12/05/16 20:00 60 12/05/16 20:00 98.4 87 20 188/77 97 12/05/16 18:00 89 12/05/16 16:04 93 60 12/05/16 16:00 55 12/05/16 16:00 84 12/05/16 16:00 97.0 84 31 156/64 90 12/05/16 14:00 86 Intake & Output 12/06/16 12/06/16 07:00 19:00 Intake Total 1242 ml Output Total 855 ml Balance 387 ml IV Total 162 ml Tube Feeding 980 ml Other 100 ml Output Urine Total 850 ml Chest Tube Drainage Total 5 ml # Bowel Movements 1 1 . Physical Exam CONSTITUTIONAL/GENERAL: This is a frail, elderly male patient in no acute distress s/p tracheostomy, tolerating CPAP TUBES/LINES/DRAINS: PIV x1, Vital, Podus boots, pigtail chest tube, Vital catheter, Soft restraints, tracheostomy, PEG tube placement SKIN: Ecchymoses on upper extremities, multiple scabbed areas. Hyperpigmentation below knees bilaterally HEAD: Atraumatic. Normocephalic. EYES: PERRLA ENT: Nose without bleeding or purulent drainage. NECK: Tracheostomy patent CARDIOVASCULAR: Irregular. No murmurs, gallops, or rubs. Peripheral pulses symmetric. RESPIRATORY/CHEST: Tracheostomy to mechanical vent, tolerating CPAP. Left- sided pigtail catheter 1 in left pleural cavity. GASTROINTESTINAL: Abdomen soft, non-tender, nondistended. Status post PEG tube placement on 12/02/16, tolerating artificial nutrition. GENITOURINARY: Without palpable bladder distension. Vital catheter draining cloudy dutch with sediment. MUSCULOSKELETAL: Pulses strong, equal. No edema. Muscle wasting LYMPHATICS: No palpable cervical or supraclavicular adenopathy. NEUROLOGICAL: Awake and alert. Responds to simple commands. Moving spontaneously 4. PSYCHIATRIC: Unable to assess given patient's current condition. . (Sujatha Elliott) Diagnostic Tests Laboratory Laboratory Tests Test 12/04/16 12/05/16 12/05/16 12/05/16 04:58 03:33 15:41 17:08 Prothrombin Time 10.5 SEC 10.3 SEC 10.7 SEC (9.8-11.6) (9.8-11.6) (9.8-11.6) Prothromb Time International 1.0 RATIO 0.9 RATIO 1.0 RATIO Ratio Activated Partial 44.3 SEC 33.5 SEC GREATER THAN 37.8 SEC Thromboplast Time (24.3-30.1) (24.3-30.1) 153.4 SEC (24.3-30.1) (24.3-30.1) White Blood Count 8.4 TH/MM3 (4.0-11.0) Red Blood Count 3.28 MIL/MM3 (4.50-5.90) Hemoglobin 11.3 GM/DL (13.0-17.0) Hematocrit 32.4 % (39.0-51.0) Mean Corpuscular Volume 98.9 FL (80.0-100.0) Mean Corpuscular Hemoglobin 34.4 PG (27.0-34.0) Mean Corpuscular Hemoglobin 34.7 % Concent (32.0-36.0) Red Cell Distribution Width 15.2 % (11.6-17.2) Platelet Count 132 TH/MM3 (150-450) Mean Platelet Volume 9.5 FL (7.0-11.0) Sodium Level 144 MEQ/L (136-145) Potassium Level 4.5 MEQ/L (3.5-5.1) Chloride Level 98 MEQ/L (98-107) Carbon Dioxide Level 40.7 MEQ/L (21.0-32.0) Anion Gap 5 MEQ/L (5-15) Blood Urea Nitrogen 27 MG/DL (7-18) Creatinine 0.46 MG/DL (0.60-1.30) Estimat Glomerular Filtration 176 ML/MIN Rate (>89) Random Glucose 125 MG/DL (74-106) Calcium Level 8.8 MG/DL (8.5-10.1) Phosphorus Level 2.5 MG/DL (2.5-4.9) Magnesium Level 2.3 MG/DL (1.5-2.5) Test 12/05/16 12/06/16 12/06/16 23:13 04:57 12:10 Activated Partial 49.7 SEC 50.2 SEC 52.2 SEC Thromboplast Time (24.3-30.1) (24.3-30.1) (24.3-30.1) Prothrombin Time 11.1 SEC (9.8-11.6) Prothromb Time International 1.0 RATIO Ratio . (Sujatha Elliott) Result Diagram: 12/05/16 0333 12/05/16 0333 Imaging Last 72 hours Impressions Chest X-Ray 12/06/16 0600 Signed Impressions: Service Date/Time: Tuesday, December 06, 2016 03:49 - CONCLUSION: No evidence of pneumothorax. No significant changes. Pradeep Rodriguez MD Upper Extremity Ultrasound 12/04/16 0000 Signed Impressions: Service Date/Time: Sunday, December 04, 2016 17:25 - CONCLUSION: Bilateral upper extremity DVT as above. Dhruv Foster MD Chest X-Ray 12/04/16 0000 Signed Impressions: Service Date/Time: Sunday, December 04, 2016 11:18 - CONCLUSION: 1. I do not see a pneumothorax today however the study is otherwise stable. Don Soto MD . Procedures 11/08/16: Intubation 11/08/16: Right IJ central line placement 11/08/16: Right chest tube placement with thoracentesis 11/15/16: Left arterial line removed 11/17/16: Chest tube removed 11/17/16: Thoracentesis. 11/18/16: Extubation 11/19/16: Left pigtail chest tube placement 11/25/16: Bronchoscopy 11/25/16: Reintubation 11/25/16: OGT 11/25/16: Second chest tube placed in left chest wall 12/02/16: Tracheostomy 12/02/16: PEG tube placement . (Sujatha Elliott) Assessment and Plan Disease Oriented Problem List: (1) Pleural effusion (2) Congestive heart failure (3) Chronic atrial fibrillation (4) Pneumothorax (5) Hypertension (6) Acute respiratory failure with hypoxia and hypercapnia (7) COPD (chronic obstructive pulmonary disease) (8) Pneumonia (9) Protein-calorie malnutrition, severe Symptom Scale: (1) Dyspnea 0-10 Scale: Unable to quantify Comment: Status post tracheostomy yesterday 12/02/16. Patient tolerating CPAP today. Bronchial washings growing Pseudomonas [place], started on on tobramycin nebulizers 7 days. CXR on 12/04/16 demonstrates cardiomegaly, small bilateral pleural effusions and bilateral consolidation greatest in the left lower lobe. Follow-up chest x-ray this morning shows no evidence of pneumothorax,no significant change otherwise. (2) Pain 0-10 Scale: Unable to quantify Comment: Probable causes of pain include dyspnea, infection, invasiveness lines , skin breakdown, immobility, bedbound status etc. Currently sedated on Diprivan and PRN fentanyl is available every 4 hours IV. Patient has received 2 doses of fentanyl in the past 24 hours. (3) Agitation Comment: IV Haldol is ordered q4 hours PRN for agitation; One doses of Haldol administered in the past 24 hours. (4) Debility Comment: Muscle wasting noted Pertinent Non-Medical Issues Psychosocial: Patient is originally from [facility] but has lived in [place] since . 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 He was and , many years ago. He has 2 children. His daughter, Raissa daniels, lives locally and is very involved in the patient's care. The patient also has a son living in [place], but reportedly has not seen him in the last 5 years. The patient does keep in touch. The patient lives alone. His daughter lives a few blocks away and assist the patient with shopping and meal preparation. Spiritual: The patient comes from [place] tradition. Per his daughter, denominational and spirituality have not been an important part of his life. Legal: Patient is currently incapacitated and unable to participate in clarification of medical treatment goals. It is unclear at this time if the patient will ever became this capacity. Per [place] statutes, in the absence of written advanced directives healthcare proxy decision making would fall to the patient's 2 adult children. Patient, has on several occasions during previous hospitalization, verbally stated that he wanted BOTH of his children to participate in health care decision making if he is incapacitated to do so. Ethical issues impacting care: No known ethical issues impacting care at this time. Important Contacts Raissa Perla (daughter) [phone] Anselmo Duncan (son) [phone] Aneesh Walls (friend) [phone] . Prognosis This is an 81-year-old male with an extensive history (decades) of congestive heart failure complicated by underlying COPD, history of alcohol abuse. Patient has been declining since March 2016 particularly with recurrent right pleural effusions. He has required > 5 thoracenteses since that time. He has been living at [facility] since his last discharge from [facility] on 10/20/16. There is known ischemic heart disease and failure may be primarily due to valvular heart disease. There is severe tricuspid regurgitation. Patient There is a reasonable chance he will continue to improve well enough to survive the hospitalization. Based on his history of the last few months, long-term prognosis is not good. Life expectancy is probably in the order of months. Patient would certainly be eligible for hospice services at such time as his goals become mostly comfort oriented. Code Status: Full Code Plan * FULL CODE * Decision making: Patient is currently incapacitated and unable to participate in clarification of medical treatment goals. It is unclear at this time if the patient will ever became this capacity. Per [place] statutes, in the absence of written advanced directives healthcare proxy decision making would fall to the patient's 2 adult children. Patient, has on several occasions during previous hospitalization, verbally stated that he wanted BOTH of his children to participate in health care decision making if he is incapacitated to do so. * GOALS: Goals remain likely; it is unlikely that this will change. * Symptom managementdyspnea: Status post tracheostomy yesterday 12/02/16. Patient tolerating CPAP today. Bronchial washings growing Pseudomonas [place], started on on tobramycin nebulizers 7 days. CXR on 12/04/16 demonstrates cardiomegaly, small bilateral pleural effusions and bilateral consolidation greatest in the left lower lobe. Follow-up chest x-ray this morning shows no evidence of pneumothorax,no significant change otherwise. * Symptom managementpain: Probable causes of pain include dyspnea, infection, invasiveness lines, skin breakdown, immobility, bedbound status etc. PRN fentanyl available-last administered on 12/04/16 * Symptom management- agitation: Patient having intermittent agitation today. IV Haldol is ordered q4 hours PRN for agitation; One doses administered in the past 24 hours. If Haldol is ineffective in managing patient's agitation, low dose lorazepam (1mg IV q4 hours PRN) is recommended as adjunctive therapy. * Patient tolerating tube feedings is post PEG tube placement on 12/02/16. Receiving Glucerna 1.5 at 50 mL's per hour. BMI 18.8. Albumin level of 1.9. * [employer] denied SNF. Peer to peer telephone consultation planned [facility] * Patient's tube feeding was changed to Glucerna 1.5. Daughter stating the patient needs to be on [id number] tube feedings, stating the patient's tube feeding has "milk" listed on ingredient list. She believes this is the cause of the patient's respiratory failure. Dietary was consulted previously on 11/14/16. I spoke to dietary this morning. Tube feeding contains milk casein ( protein) only and that is why milk is listed on the label; It is considered a non-dairy product. Tube feeding is lactose free; Tube feeding contains soy protein; Currently neither [facility] nor [facility] carry a vegan tube feeding so this is not an option. Discussed with nurse Beaulieu and patient's daughter has been made aware. * Palliative care will continue to follow this patient throughout his hospitalization to establish trust, assist with symptom management and clarification of medical treatment goals. . (Sujatha Elliott) Attestation To help prompt me to consider important information that might be impacting today's encounter and assessment, information from prior notes written by myself or my colleagues may have been "brought forward" into today's note. My signature on this note, however, is an attestation that I personally performed the exam, history, and/or decision-making noted today, and, unless otherwise indicated, the interactions with patient, family, and staff as well as the review of records all occurred today. I also attest that the listed assessment and stated plan reflect my best clinical judgment today based on the combination of historical information, prior notes, and today's exam/ interactions. When time spent is documented, it refers only to time spent today by the signer, or if indicated, combined time spent today by collaborating physician/nurse practitioner. . (Sujatha Elliott) Collaborating MD Comments . Chart reviewed. Cased discussed with palliative care HYDRO PNEUMATIC TESTER. Above HYDRO PNEUMATIC TESTER note reviewed and I concur. . (Vignesh Garcia MD) Sujatha Elliott Dec 06, 2016 14:07 Vignesh Garcia MD January 20, 2017 15:21
[2016-12-06] MEDS: WARFARIN SOD 6 MG TAB PO SCH (16:54)
--- NOTE | 2016-12-06 19:06 | HHI.CCPN ---
Subjective Remarks/Hospital Course This is an 81-year-old male who has had multiple readmissions over the past few months for a recurrent right-sided pleural effusion. [facility] with recurrent right-sided pleural effusion as well as hypoxia and somnolence. He was found to have significant hypercarbia and a PCO2 in the 90s. He was initially placed on BiPAP and admitted to the [facility]. He became more somnolent and his oxygen saturation began to decline. At this point a critical care medicine is consulted to evaluate and manage his hypercarbic respiratory failure. Because he is failed his trial of noninvasive positive pressure ventilation, we will move towards intubating the patient. I evaluated the patient and he is essentially unresponsive and obtunded and only minimally withdrawing to pain. I can obtain no additional history from the patient. Subjective: 11/09: Early this a.m. at approximately 06:30 the patient was noted to have a grand mal seizure lasting approximately 60 seconds followed by a small tonic- clonic seizure lasting 30 seconds involving the lower extremities. The patient received Ativan 2 mg with cessation of seizure activity. Stat CT of the brain without contrast was obtained showed no acute abnormality. EEG was obtained previously awaiting results. Prior to the event the patient was noted to be on a fentanyl infusion at approximately 250 mcg/h. The patient was noted to be a GCS 10T, squeezing my hand. 11/10: The patient was noted to have multiple seizures requiring interventions with IV Ativan. Described as tonic-clonic in nature with eyes rolled back in the head. Gross motor movement shaking 4 extremities. Today the patient was noted to have a positive growth and blood cultures. WBC count elevated. Ammonia level was drawn less than 10, lactate was noted to be 2.2 this morning. Pleural fluid culture negative growth to date. 11/11: On stimulation patient continues to have jerking movement of all extremities. EEG negative for seizures. Check MRI today. Dr. Kirkland is neurology. Remains on 2 mcg/min of Levophed 11/12: Per neurologist, patient had witnessed with tonic convulsions started over right arm and propagated to left UE and both LE with fluttering of the eyes and upward gaze.Loaded with Dilantin iv infusion and a maintenance dose of 100mg Q8h, Stat EEG negative for seizures. Its unclear to me whether it is seizure or myoclonus 11/13: No change in neuro status. Continues to have jerking movements off lower extremity when stimulated. EEG 2 have been negative for seizures. We'll hold sedation for neuro exam 11/14: On sedation hold opens eyes. Appears to follow commands and upper extremity. Still has some tremulousness of the extremities. Remains off pressors 11/15: Remains on Precedex intermittently following commands for RN. Placed on CPAP tolerating well. No evidence of myoclonus now 11/16: On 1.1 mcg/kg/hr of Precedex. No spontaneous eye opening but moves all extremities spontaneously. Not following commands will reduce Precedex, and start weaning trials 11/17: Mental status significantly improved patient following commands on Precedex. However chest tube was dislodged yesterday evening, now has bilateral pleural effusions left is more than right, appears large. Vent day 10 11/18: Off Precedex following commands upper extremities. But continues to fail C Pap trials due to tachypnea and low tidal volumes. Status post large-volume left thoracentesis yesterday with 1.2 L of old blood-tinged fluid removed. 11/19: Overnight agitated, requiring maximum dose Precedex 1.4 mcg per kg per hr and restraints. Currently heavily sedated. Chest x-ray shows increasing left effusion confirmed by ultrasound. We'll proceed with left pigtail catheter after consent. Continue to hold Coumadin due to hemorrhagic effusion 11/20: Left pigtail chest tube placed yesterday with a 30 mL output. Mentation improving now oriented follows commands. Requiring oxygen by nasal cannula. Slight increase in right effusion seen on chest x-ray 11/21: CT chest shows moderate left-sided pneumothorax. Eating continues to be slightly tachypneic but patient appears comfortable. Agitated requiring 4 point restraints. Also a liver enzymes are increasing most likely secondary to Dilantin. I will DC Dilantin and start him on Keppra 11/22 No acute events overnight. On Precedex drip. Afebrile. CXR this morning showed no evidence of PTX. 11/23 Patient is on Precedex 0.7 awake and alert on 2L oxygen with good sats. 11/24 Patient is off Precedex drip. Afebrile. Awake and alert. 11/25 Called by nurse as patient was diaphoretic, tachypneic, tachycardic, hypertensive minimally responsive and had O2 saturation in 80's he was subsequently intubated and placed on mechanical ventilation. CXR from earlier showed volume loss, consolidation RUL. 11/26 Patient is sedated with Diprivan and intubated. s/p bronch yesterday which showed mucous plugs on right CXR post bronch showed much improved aeration of right lung. Afebrile 11/27: Remains sedated with propofol, orally intubated on mechanical ventilation. 2 left-sided pigtail catheter is in place with posterior pigtail catheter having positive air leak. 11/28: Remains sedated, orally intubated on mechanical ventilation. One of the 2 pigtail catheters on the left side got dislodged in the morning by manager night RN. Patient did not drop O2 sats. Second pigtail catheter which is still in place does not have any air leak currently. Stat chest x-ray obtained by fl which shows small apical pneumothorax on the left. Peak airway pressures 14, patient is not having any issues with hypotension and desaturation. We'll repeat chest x-ray later today to follow-up on pneumothorax and decide regarding placing another chest tube. 11/29 Patient is sedated with Diprivan and intubated. Afebrile. 11/30 The patient remains on heparin infusion for occlusive DVT left cephalic vein , and scattered clots left brachial and left axillary veins. Noted magnesium level was decreased 11/28. Repeat magnesium level pending this a.m., will replete as necessary. 12/01 Tmax 100.2 The patient currently off sedation, not set appropriately when questioned. The patient tolerated CPAP trials 4 hours yesterday. Left pigtail chest tube no leak remains on 40 cm of water pressure. 12/02 Tmax 99.4. Heparin infusion held at 6 AM this morning in anticipation of tracheostomy and PEG placement. Tube feeds have been off since 12 midnight consents are noted in the chart. The patient was noted to remain on CPAP for approximately 4 hours yesterday without difficulty. 12/03: TMAX 99.9. The patient successfully underwent tracheostomy PEG tube placement yesterday. The patient will begin CPAP trials this a.m.. The patient was noted to have DVTs in the now right upper extremity, in conjunction with the existing left upper extremity DVT's. Tube feeds restarted without residuals 6 hours post placement of PEG. 12/04: Afebrile. Patient tolerating tube feeds, no residuals. Patient continues on heparin for occlusive DVT. Patient tolerated CPAP only 3 hours yesterday secondary to thickened secretions. Patient has not had a bowel movement greater than 3 days will increase bowel regimen. 12/05:Afebrile. Sedation discontinued, the patient is awake and alert, responsive to commands. Bronchial washings revealed Pseudomonas [place] and placed on tobramycin nebulizers 7 days. ID following, Dr. Hameed.Peer to peer planned telephone consultation today for transfer possibly to [facility]. Patient continues on heparin infusion for occlusive and nonocclusive DVT bilateral upper extremities. 12/06: Patient completely off all sedation responding well without agitation. Patient being transitioned to Coumadin, and willl discontinue heparin when therapeutic INR. Tentative plans to be transferred to [facility] on Friday. Objective Vital Signs Date Time Temp Pulse Resp B/P Pulse Ox O2 Delivery O2 Flow Rate FiO2 12/06/16 18:00 89 12/06/16 16:35 95 50 12/06/16 16:00 99.0 24 121/47 Intake and Output 12/05/16 12/05/16 12/06/16 08:00 16:00 00:00 Intake Total 623 ml 919 ml 675 ml Output Total 350 ml 528 ml 450 ml Balance 273 ml 391 ml 225 ml Result Diagram: 12/05/16 0333 12/05/16 0333 Imaging Last Impressions Upper Extremity Ultrasound 11/29/16 0000 Signed Impressions: Service Date/Time: Tuesday, November 29, 2016 11:59 - CONCLUSION: Thrombus as described above. Clot in the deep venous system is accommodation of occlusive and nonocclusive clot. Kun Mendoza MD FACR Chest X-Ray 11/29/16 0000 Signed Impressions: Service Date/Time: Tuesday, November 29, 2016 07:29 - CONCLUSION: No change in bilateral pulmonary opacity. No evidence of pneumothorax. Endotracheal tube tip now 3 cm above the laura. Mathew Guerrero MD Chest CT 11/20/16 0000 Signed Impressions: Service Date/Time: October 09:37 - CONCLUSION: 1. Left pneumothorax without tension 2. Small loculated effusion medial right base 3. Pericardial effusion as above Jimi Chavez MD Liver Ultrasound 11/17/16 0000 Signed Impressions: Service Date/Time: Thursday, November 17, 2016 15:58 - CONCLUSION: 1. Increased liver echogenicity characteristic of mild fatty infiltration or hepatocellular disease. 2. Trace free fluid in the abdomen. Pleural effusions. Mild gallbladder wall thickening. Chaka Campos MD Brain MRI 11/11/16 0000 Signed Impressions: Service Date/Time: Friday, November 11, 2016 12:53 - CONCLUSION: 1. 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 2. 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 The others would be consistent with punctate, remote areas of hemorrhage suggesting possibility of amyloid. Eitan Mendoza MD Head CT 11/09/16 0000 Signed Impressions: Service Date/Time: Wednesday, November 09, 2016 10:29 - CONCLUSION: Stable CT scan of the brain. Pradeep Rodriguez MD Chest Tube Insertion 11/08/16 0000 Signed Impressions: Service Date/Time: Tuesday, November 08, 2016 12:46 - CONCLUSION: Uncomplicated right chest tube placement as above. 1500 cc of fluid removed and sent for culture. Post CT scan reveals a large. pleural rind . The right lung may well not reexpanded. A.m. chest x-ray is pending. Cultures pending. Kun Mendoza MD FACR CT Angiography 11/07/16 0000 Signed Impressions: Service Date/Time: October 20:40 - CONCLUSION: 1. No pulmonary embolus. 2. Marked cardiac enlargement, especially the atria. 3. Bilateral effusions and atelectasis about the same on the left and considerably worse on the right. Right pneumothorax seen previously has resolved. Dhruv Foster MD Objective Remarks GENERAL: Patient is 81yo tracheostomy 8.0 in situ, on sedation vacation the patient nodding responding to questions SKIN: Warm and dry. HEAD: Normocephalic. EYES: No scleral icterus. No injection or drainage. NECK: Supple, trachea midline. No JVD or lymphadenopathy. Orally intubated CARDIOVASCULAR: Regular rate and rhythm without murmurs, gallops, or rubs. RESPIRATORY: Breath sounds equal bilaterally. No accessory muscle use. GASTROINTESTINAL: Abdomen soft, non-tender, nondistended. MUSCULOSKELETAL: No cyanosis, + edema LUE. Neuro:RASS-2. Responding appropriately to yes and no questions. Moving extremities 4. Urinary Catheter: Yes Date of Insertion: Nov 08, 2016 A/P Assessment and Plan Assessment: This is an 81-year-old male with history of prior recurrent right pleural effusions and COPD now presents with acute hypercarbic and hypoxic respiratory failure which has failed noninvasive positive pressure ventilation. Intubated and placed on mechanical ventilation. Covering COPD exacerbation, as well as healthcare associated pneumonia given his history of being on Lev[facility]quin at his [facility]. He remains critically ill. Not sure that we will be able to get him through this hospitalization, and his recurrent respiratory failures are clearly making him more deconditioned every time he comes in the hospital. Despite this, daughter continues to request aggressive measures. Extubated 11/18/16. Reintubated 11/25.percutaneous tracheostomy .Continuing CPAP trials. Plan by systems: Neurologic: Myoclonus-resolved Agitated delirium CO2 narcosis-resolved Metabolic encephalopathy Mild dementia -IV sedation discontinued 12/05. Patient nodding head appropriately to questions. Use Ativan PRN for breakthrough seizures /myoclonus -EEG negative 11/10/15, 11/11/16 (moderate to severe encephalopathy, no seizure) -11/08 CT of the brain-no acute abnormality. 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 Question of amyloid -On Keppra 500 mg by mouth twice a day Respiratory: Acute hypercarbic and hypoxic respiratory failure-extubated - Reintubated 11/25 Recurrent right pleural effusion s/p chest tube placement-dislodged 11/17 New moderate left pneumothorax-resolved Right pneumothorax-resolved Large hemorrhagic left pleural effusion status post thoracentesis 11/17/16, pigtail chest tube 11/19/16 Healthcare associated pneumonia COPD exacerbation Tracheostomy 12/02 POD #4 -Continue with vent support keep sat >92% -Bronchodilators, Mucomyst nebs -s/p Bronch 11/25: Mucous plugs on right CXR post bronch -much improved aeration of right lung Continue prednisone per Dr. Kitchen, -s/p anterior left anterior pigtail chest tube, continues on 20 cm of water suction --Status post left thoracentesis 11/17/16 with 1.2 L of hemorrhagic fluid removed. CXR/US shows reaccumulation of left pleural fluid. pigtail chest tube placed 11/19/1611/08 S/P CT guided IR drainage of recurrent right posterior pleural effusion, unable to perform pleurodesis, accidentally dislodged Monitor CT drainage. Patient has one pigtail catheter on the left side which has no air leak currently on 20 cm of water pressure, no drainage. One of the pigtail catheters got dislodged on 11/28 in a.m. -S/P tracheostomy 8.0 [place] 12/02 -12/02CXR-1.2 cm small left pneumothorax, left chest tube on continuous suction 20 cmH2O -CPAP trials continued, patient has slightly thick secretions, lasted approximately 3 hours yesterday Cardiovascular: Severe pulmonary hypertension (PASP 85 on Echo 10/08/16, repeat echo 11/19/16 PASP was 47) A. fib RVR Hypertension Moderate to severe TR Continue with BP meds- (captopril and atenolol 11/14/16). Captopril reinitiated at 25 mg 3 times a day --Monitor HR and BP keep MAP>65mmHg --Repeat 2d echo 11/19/16 PASP was 47 compared to 85 on 10/18/16 Renal: Hypernatremia- resolved Monitor renal function, I/O's, electrolytes replacement per protocol. -On Lasix 20mg BID FEN/GI: Acute intravascular volume overload Acute protein calorie malnutritionsevere Elevated LFT's -Continue to monitor BMP -Glucerna 1.5 with goal rate 45ml/hr, no residuals noted -PEG tube placement- 12/02. Site clean without erythema or drainage Heme/ID: Healthcare associated pneumonia, staph aureus in sputum Leukocytosis-resolved Thrombocytopenia-resolved -Patient s/p Cefepime and Zithromax 11/08-11/13 and Rocephin 11/15-11/18 ID is following. Rocephin resumed for MSSA pneumonia on 11/26 -11/26 Sputum cx : Staph Aureus 11/08 blood -micrococcus 08/28 possible contaminant - Urine cultures-NGTD --Sputum cx 11/12/16 with staph aureus -patient continues on heparin infusion will continue to monitor. Patient transitioned to Coumadin, will discontinue heparin when INR is therapeutic. Endocrine: Hyperglycemia of critical illness-resolved -- SSI, medium scale, every 6 hours discontinued 12/01 Prophylaxis: GI Prophylaxis Protonix 40 mg IV every 24 hours DVT Prophylaxis --SCDs Doppler US LUE: Occlusive and non-occlusive clot in cephalic vein, scattered clot in brachial and axillary vein On Heparin drip, Coumadin was placed on hold 11/29/16. Lines: Peripheral IVsx 2. central line if indicated Vital Dispo: Palliative care is following. Discussed with EVENT SECURITY OFFICER at bedside. Level 3 Physician Kathrine Childers MD Dec 06, 2016 19:05
[2016-12-07] VITALS (17 sets, daily range): BP systolic 96–142; BP diastolic 39–53; PULSE 75–92; RESP 17–26; TEMP 97.8–100; O2SAT 94–99
[2016-12-07] MEDS: CAPTOPRIL 25 MG TAB PO SCH ×3 (06:01→23:41)
[2016-12-07] MEDS: HEPARIN-D5W INJ 250 ML IV SCH ×2 (06:02→23:40)
[2016-12-07] MEDS: RESP: TOBRAMYCIN SULFATE 80 MG/2 ML NEB NEB SCH ×2 (07:40→19:37)
[2016-12-07] MEDS: CHLORHEXIDINE 0.12% (ORAL KIT) 15 ML CUP MT SCH ×2 (08:00→20:00)
[2016-12-07] MEDS: SODIUM CHLORIDE 0.9% FLUSH 5 ML FLUSH IVF SCH (09:00)
[2016-12-07] MEDS: SODIUM CHLORIDE 0.9% FLUSH 5 ML FLUSH FLUSH SCH (09:00)
[2016-12-07] MEDS: POLYETHYLENE GLYCOL 17 GM PKG PO SCH (09:30)
[2016-12-07] MEDS: levETIRAcetam 500 MG TAB PO SCH ×2 (09:30→23:41)
[2016-12-07] MEDS: predniSONE 10 MG TAB PO SCH ×2 (09:30→23:41)
[2016-12-07] MEDS: ATENOLOL 50 MG TAB PO SCH ×2 (09:30→23:41)
[2016-12-07] MEDS: FUROSEMIDE 20 MG TAB PO SCH ×2 (09:30→18:19)
[2016-12-07] MEDS: SENNOSIDES SYRUP 8.8 MG/5 ML CUP PO SCH (09:30)
[2016-12-07] MEDS: DOCUSATE SODIUM 100 MG/10 ML UDC PO SCH ×2 (09:30→23:41)
[2016-12-07 11:18] LABS: HEMATOCRIT 32.4 % (39.0-51.0); MEAN CELL VOLUME 101.1 FL (80.0-100.0); MEAN CORPUSCULAR HEMOGLOBIN 33.1 PG (27.0-34.0); MEAN CORPUSCULAR HGB CONC 32.8 % (32.0-36.0); PLATELET COUNT 129 TH/MM3 (150-450); RED CELL DISTRIBUTION WIDTH 15.7 % (11.6-17.2); REVIEW FLAG FINAL; WHITE BLOOD COUNT 11.6 TH/MM3 (4.0-11.0)
[2016-12-07 11:22] LABS: APTT (PATIENT) 52.9 SEC (24.3-30.1)
[2016-12-07 11:38] LABS: INTERNATIONAL NORMALIZED RATIO 1.3 RATIO; PROTHROMBIN TIME - PATIENT 15.1 SEC (9.8-11.6)
[2016-12-07 11:42] LABS: BICARBONATE 37.4 MEQ/L (21.0-32.0); MAGNESIUM 2.3 MG/DL (1.5-2.5); POTASSIUM 5.5 MEQ/L (3.5-5.1)
--- NOTE | 2016-12-07 13:52 | HHI.CCPN ---
Subjective Remarks/Hospital Course This is an 81-year-old male who has had multiple readmissions over the past few months for a recurrent right-sided pleural effusion. He represents from his assisted facility with recurrent right-sided pleural effusion as well as hypoxia and somnolence. He was found to have significant hypercarbia and a PCO2 in the 90s. He was initially placed on BiPAP and admitted to the [facility]. He became more somnolent and his oxygen saturation began to decline. At this point a critical care medicine is consulted to evaluate and manage his hypercarbic respiratory failure. Because he is failed his trial of noninvasive positive pressure ventilation, we will move towards intubating the patient. I evaluated the patient and he is essentially unresponsive and obtunded and only minimally withdrawing to pain. I can obtain no additional history from the patient. Subjective: 11/09: Early this a.m. at approximately 06:30 the patient was noted to have a grand mal seizure lasting approximately 60 seconds followed by a small tonic- clonic seizure lasting 30 seconds involving the lower extremities. The patient received Ativan 2 mg with cessation of seizure activity. Stat CT of the brain without contrast was obtained showed no acute abnormality. EEG was obtained previously awaiting results. Prior to the event the patient was noted to be on a fentanyl infusion at approximately 250 mcg/h. The patient was noted to be a GCS 10T, squeezing my hand. 11/10: The patient was noted to have multiple seizures requiring interventions with IV Ativan. Described as tonic-clonic in nature with eyes rolled back in the head. Gross motor movement shaking 4 extremities. Today the patient was noted to have a positive growth and blood cultures. WBC count elevated. Ammonia level was drawn less than 10, lactate was noted to be 2.2 this morning. Pleural fluid culture negative growth to date. 11/11: On stimulation patient continues to have jerking movement of all extremities. EEG negative for seizures. Check MRI today. Dr. Kirkland is neurology. Remains on 2 mcg/min of Levophed 11/12: Per neurologist, patient had witnessed with tonic convulsions started over right arm and propagated to left UE and both LE with fluttering of the eyes and upward gaze.Loaded with Dilantin iv infusion and a maintenance dose of 100mg Q8h, Stat EEG negative for seizures. Its unclear to me whether it is seizure or myoclonus 11/13: No change in neuro status. Continues to have jerking movements off lower extremity when stimulated. EEG 2 have been negative for seizures. We'll hold sedation for neuro exam 11/14: On sedation hold opens eyes. Appears to follow commands and upper extremity. Still has some tremulousness of the extremities. Remains off pressors 11/15: Remains on Precedex intermittently following commands for RN. Placed on CPAP tolerating well. No evidence of myoclonus now 11/16: On 1.1 mcg/kg/hr of Precedex. No spontaneous eye opening but moves all extremities spontaneously. Not following commands will reduce Precedex, and start weaning trials 11/17: Mental status significantly improved patient following commands on Precedex. However chest tube was dislodged yesterday evening, now has bilateral pleural effusions left is more than right, appears large. Vent day 10 11/18: Off Precedex following commands upper extremities. But continues to fail C Pap trials due to tachypnea and low tidal volumes. Status post large-volume left thoracentesis yesterday with 1.2 L of old blood-tinged fluid removed. 11/19: Overnight agitated, requiring maximum dose Precedex 1.4 mcg per kg per hr and restraints. Currently heavily sedated. Chest x-ray shows increasing left effusion confirmed by ultrasound. We'll proceed with left pigtail catheter after consent. Continue to hold Coumadin due to hemorrhagic effusion 11/20: Left pigtail chest tube placed yesterday with a 30 mL output. Mentation improving now oriented follows commands. Requiring oxygen by nasal cannula. Slight increase in right effusion seen on chest x-ray 11/21: CT chest shows moderate left-sided pneumothorax. Eating continues to be slightly tachypneic but patient appears comfortable. Agitated requiring 4 point restraints. Also a liver enzymes are increasing most likely secondary to Dilantin. I will DC Dilantin and start him on Keppra 11/22 No acute events overnight. On Precedex drip. Afebrile. CXR this morning showed no evidence of PTX. 11/23 Patient is on Precedex 0.7 awake and alert on 2L oxygen with good sats. 11/24 Patient is off Precedex drip. Afebrile. Awake and alert. 11/25 Called by nurse as patient was diaphoretic, tachypneic, tachycardic, hypertensive minimally responsive and had O2 saturation in 80's he was subsequently intubated and placed on mechanical ventilation. CXR from earlier showed volume loss, consolidation RUL. 11/26 Patient is sedated with Diprivan and intubated. s/p bronch yesterday which showed mucous plugs on right CXR post bronch showed much improved aeration of right lung. Afebrile 11/27: Remains sedated with propofol, orally intubated on mechanical ventilation. 2 left-sided pigtail catheter is in place with posterior pigtail catheter having positive air leak. 11/28: Remains sedated, orally intubated on mechanical ventilation. One of the 2 pigtail catheters on the left side got dislodged in the morning by shift mechanic RN. Patient did not drop O2 sats. Second pigtail catheter which is still in place does not have any air leak currently. Stat chest x-ray obtained by ga which shows small apical pneumothorax on the left. Peak airway pressures 14, patient is not having any issues with hypotension and desaturation. We'll repeat chest x-ray later today to follow-up on pneumothorax and decide regarding placing another chest tube. 11/29 Patient is sedated with Diprivan and intubated. Afebrile. 11/30 The patient remains on heparin infusion for occlusive DVT left cephalic vein , and scattered clots left brachial and left axillary veins. Noted magnesium level was decreased 11/28. Repeat magnesium level pending this a.m., will replete as necessary. 12/01 Tmax 100.2 The patient currently off sedation, not set appropriately when questioned. The patient tolerated CPAP trials 4 hours yesterday. Left pigtail chest tube no leak remains on 40 cm of water pressure. 12/02 Tmax 99.4. Heparin infusion held at 6 AM this morning in anticipation of tracheostomy and PEG placement. Tube feeds have been off since 12 midnight consents are noted in the chart. The patient was noted to remain on CPAP for approximately 4 hours yesterday without difficulty. 12/03: TMAX 99.9. The patient successfully underwent tracheostomy PEG tube placement yesterday. The patient will begin CPAP trials this a.m.. The patient was noted to have DVTs in the now right upper extremity, in conjunction with the existing left upper extremity DVT's. Tube feeds restarted without residuals 6 hours post placement of PEG. 12/04: Afebrile. Patient tolerating tube feeds, no residuals. Patient continues on heparin for occlusive DVT. Patient tolerated CPAP only 3 hours yesterday secondary to thickened secretions. Patient has not had a bowel movement greater than 3 days will increase bowel regimen. 12/05:Afebrile. Sedation discontinued, the patient is awake and alert, responsive to commands. Bronchial washings revealed Pseudomonas [place] and placed on tobramycin nebulizers 7 days. ID following, Dr. Hameed.Peer to peer planned telephone consultation today for transfer possibly to [facility]. Patient continues on heparin infusion for occlusive and nonocclusive DVT bilateral upper extremities. 12/06: Patient completely off all sedation responding well without agitation. Patient being transitioned to Coumadin, and willl discontinue heparin when therapeutic INR. Tentative plans to be transferred to [facility] on Friday. 12/07 no acute events overnight. INR this am 1.3. Patient continues on heparin infusion. The patient awake and responsive of all sedation. Objective Vital Signs Date Time Temp Pulse Resp B/P Pulse Ox O2 Delivery O2 Flow Rate FiO2 12/07/16 12:00 98.0 80 21 96/46 96 12/07/16 12:00 50 Intake and Output 12/06/16 12/06/16 12/07/16 08:00 16:00 00:00 Intake Total 567 ml 816 ml 601 ml Output Total 405 ml 450 ml 650 ml Balance 162 ml 366 ml -49 ml Result Diagram: 12/07/16 1100 12/07/16 1100 Imaging Last Impressions Upper Extremity Ultrasound 11/29/16 0000 Signed Impressions: Service Date/Time: Tuesday, November 29, 2016 11:59 - CONCLUSION: Thrombus as described above. Clot in the deep venous system is accommodation of occlusive and nonocclusive clot. Kun Mendoza MD FACR Chest X-Ray 11/29/16 0000 Signed Impressions: Service Date/Time: Tuesday, November 29, 2016 07:29 - CONCLUSION: No change in bilateral pulmonary opacity. No evidence of pneumothorax. Endotracheal tube tip now 3 cm above the laura. Mathew Guerrero MD Chest CT 11/20/16 0000 Signed Impressions: Service Date/Time: October 09:37 - CONCLUSION: 1. Left pneumothorax without tension 2. Small loculated effusion medial right base 3. Pericardial effusion as above Jimi Chavez MD Liver Ultrasound 11/17/16 0000 Signed Impressions: Service Date/Time: Thursday, November 17, 2016 15:58 - CONCLUSION: 1. Increased liver echogenicity characteristic of mild fatty infiltration or hepatocellular disease. 2. Trace free fluid in the abdomen. Pleural effusions. Mild gallbladder wall thickening. Chaka Campos MD Brain MRI 11/11/16 0000 Signed Impressions: Service Date/Time: Friday, November 11, 2016 12:53 - CONCLUSION: 1. 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 2. 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 The others would be consistent with punctate, remote areas of hemorrhage suggesting possibility of amyloid. Eitan Mendoza MD Head CT 11/09/16 0000 Signed Impressions: Service Date/Time: Wednesday, November 09, 2016 10:29 - CONCLUSION: Stable CT scan of the brain. Pradeep Rodriguez MD Chest Tube Insertion 11/08/16 0000 Signed Impressions: Service Date/Time: Tuesday, November 08, 2016 12:46 - CONCLUSION: Uncomplicated right chest tube placement as above. 1500 cc of fluid removed and sent for culture. Post CT scan reveals a large. pleural rind . The right lung may well not reexpanded. A.m. chest x-ray is pending. Cultures pending. Kun Mendoza MD FACR CT Angiography 11/07/16 0000 Signed Impressions: Service Date/Time: October 20:40 - CONCLUSION: 1. No pulmonary embolus. 2. Marked cardiac enlargement, especially the atria. 3. Bilateral effusions and atelectasis about the same on the left and considerably worse on the right. Right pneumothorax seen previously has resolved. Dhruv Foster MD Objective Remarks GENERAL: Patient is 81yo tracheostomy 8.0 in situ, on sedation vacation the patient nodding responding to questions SKIN: Warm and dry. HEAD: Normocephalic. EYES: No scleral icterus. No injection or drainage. NECK: Supple, trachea midline. No JVD or lymphadenopathy. Orally intubated CARDIOVASCULAR: Regular rate and rhythm without murmurs, gallops, or rubs. RESPIRATORY: Breath sounds equal bilaterally. No accessory muscle use. GASTROINTESTINAL: Abdomen soft, non-tender, nondistended. MUSCULOSKELETAL: No cyanosis, + edema LUE. Neuro:RASS-2. Responding appropriately to yes and no questions. Moving extremities 4. Urinary Catheter: Yes Date of Insertion: Nov 08, 2016 A/P Assessment and Plan Assessment: This is an 81-year-old male with history of prior recurrent right pleural effusions and COPD now presents with acute hypercarbic and hypoxic respiratory failure which has failed noninvasive positive pressure ventilation. Intubated and placed on mechanical ventilation. Covering COPD exacerbation, as well as healthcare associated pneumonia given his history of being on Levaquin at his assisted facility. He remains critically ill. Not sure that we will be able to get him through this hospitalization, and his recurrent respiratory failures are clearly making him more deconditioned every time he comes in the hospital. Despite this, daughter continues to request aggressive measures. Extubated 11/18/16. Reintubated 11/25.percutaneous tracheostomy .Continuing CPAP trials. Plan by systems: Neurologic: Myoclonus-resolved Agitated delirium CO2 narcosis-resolved Metabolic encephalopathy Mild dementia -IV sedation discontinued 12/05. Patient nodding head appropriately to questions. Use Ativan PRN for breakthrough seizures /myoclonus -EEG negative 11/10/15, 11/11/16 (moderate to severe encephalopathy, no seizure) -11/08 CT of the brain-no acute abnormality. 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 Question of amyloid -On Keppra 500 mg by mouth twice a day Respiratory: Acute hypercarbic and hypoxic respiratory failure-extubated - Reintubated 11/25 Recurrent right pleural effusion s/p chest tube placement-dislodged 11/17 New moderate left pneumothorax-resolved Right pneumothorax-resolved Large hemorrhagic left pleural effusion status post thoracentesis 11/17/16, pigtail chest tube 11/19/16 Healthcare associated pneumonia COPD exacerbation Tracheostomy 12/02 POD #4 -Continue with vent support keep sat >92% -Bronchodilators, Mucomyst nebs -s/p Bronch 11/25: Mucous plugs on right CXR post bronch -much improved aeration of right lung Continue prednisone per Dr. Kitchen, -s/p anterior left anterior pigtail chest tube, continues on 20 cm of water suction --Status post left thoracentesis 11/17/16 with 1.2 L of hemorrhagic fluid removed. CXR/US shows reaccumulation of left pleural fluid. pigtail chest tube placed 11/19/1611/08 S/P CT guided IR drainage of recurrent right posterior pleural effusion, unable to perform pleurodesis, accidentally dislodged Monitor CT drainage. Patient has one pigtail catheter on the left side which has no air leak currently on 20 cm of water pressure, no drainage. One of the pigtail catheters got dislodged on 11/28 in a.m. -S/P tracheostomy 8.0 Shiley 12/02 -12/02CXR-1.2 cm small left pneumothorax, left chest tube on continuous suction 20 cmH2O -The patient remains on CPAP since 12/05 Cardiovascular: Severe pulmonary hypertension (PASP 85 on Echo 10/08/16, repeat echo 11/19/16 PASP was 47) A. fib RVR Hypertension Moderate to severe TR Continue with BP meds- (captopril and atenolol 11/14/16). Captopril 25 mg TID --Monitor HR and BP keep MAP>65mmHg --Repeat 2d echo 11/19/16 PASP was 47 compared to 85 on 10/18/16 Renal: Hypernatremia- resolved Monitor renal function, I/O's, electrolytes replacement per protocol. -On Lasix 20mg BID FEN/GI: Acute intravascular volume overload Acute protein calorie malnutritionsevere Elevated LFT's -Continue to monitor BMP -Glucerna 1.5 with goal rate 45ml/hr, no residuals noted -PEG tube placement- 12/02. Site clean without erythema or drainage Heme/ID: Healthcare associated pneumonia, staph aureus in sputum Leukocytosis-resolved Thrombocytopenia-resolved -Patient s/p Cefepime and Zithromax 11/08-11/13 and Rocephin 11/15-11/18 ID is following. Rocephin resumed for MSSA pneumonia on 11/26 -11/26 Sputum cx : Staph Aureus 11/08 blood -micrococcus 08/28 possible contaminant - Urine cultures-NGTD --Sputum cx 11/12/16 with staph aureus -patient continues on heparin infusion will continue to monitor. Patient transitioned to Coumadin, will discontinue heparin when INR is therapeutic. Endocrine: Hyperglycemia of critical illness-resolved -- SSI, medium scale, every 6 hours discontinued 12/01 Prophylaxis: GI Prophylaxis Protonix 40 mg IV every 24 hours DVT Prophylaxis --SCDs Doppler US LUE: Occlusive and non-occlusive clot in cephalic vein, scattered clot in brachial and axillary vein Coumadin resume 12/06 transitioning from heparin infusion. Lines: Peripheral IVsx 2. central line if indicated Vital Dispo: Palliative care is following. Discussed with WAREHOUSE WORKER at bedside. Plan for [facility] Friday or Friday Level 3 Physician aKthrine Childers MD Dec 07, 2016 13:51
[2016-12-07] MEDS: WARFARIN SOD 6 MG TAB PO SCH (18:19)
[2016-12-08] VITALS (16 sets, daily range): BP systolic 117–218; BP diastolic 50–81; PULSE 67–96; RESP 18; TEMP 98.3–99; O2SAT 94–100
[2016-12-08] MEDS: CAPTOPRIL 25 MG TAB PO SCH ×3 (06:00→21:48)
[2016-12-08] MEDS: RESP: TOBRAMYCIN SULFATE 80 MG/2 ML NEB NEB SCH ×2 (07:16→19:30)
[2016-12-08] MEDS: CHLORHEXIDINE 0.12% (ORAL KIT) 15 ML CUP MT SCH ×2 (08:00→20:00)
[2016-12-08] MEDS: DOCUSATE SODIUM 100 MG/10 ML UDC PO SCH ×2 (08:29→21:48)
[2016-12-08] MEDS: levETIRAcetam 500 MG TAB PO SCH ×2 (08:29→21:48)
[2016-12-08] MEDS: ATENOLOL 50 MG TAB PO SCH ×2 (08:29→21:48)
[2016-12-08] MEDS: FUROSEMIDE 20 MG TAB PO SCH ×2 (08:29→16:24)
[2016-12-08] MEDS: predniSONE 10 MG TAB PO SCH ×2 (08:29→21:48)
[2016-12-08] MEDS: hydrALAZINE HCL 20 MG/ML VIAL IV PUSH PRN ×2 (08:30→12:30)
[2016-12-08] MEDS: POLYETHYLENE GLYCOL 17 GM PKG PO SCH (09:00)
[2016-12-08] MEDS: SODIUM CHLORIDE 0.9% FLUSH 5 ML FLUSH FLUSH SCH ×2 (09:00→21:00)
[2016-12-08] MEDS: SENNOSIDES SYRUP 8.8 MG/5 ML CUP PO SCH (09:00)
[2016-12-08] MEDS: SODIUM CHLORIDE 0.9% FLUSH 5 ML FLUSH IVF SCH (09:00)
[2016-12-08 11:21] LABS: HEMATOCRIT 33.5 % (39.0-51.0); MEAN CELL VOLUME 99.8 FL (80.0-100.0); MEAN CORPUSCULAR HEMOGLOBIN 32.7 PG (27.0-34.0); MEAN CORPUSCULAR HGB CONC 32.8 % (32.0-36.0); PLATELET COUNT 150 TH/MM3 (150-450); RED BLOOD COUNT 3.35 MIL/MM3 (4.50-5.90); RED CELL DISTRIBUTION WIDTH 15.2 % (11.6-17.2); REVIEW FLAG FINAL; WHITE BLOOD COUNT 10.3 TH/MM3 (4.0-11.0)
[2016-12-08] MEDS: MAGNESIUM SULFATE INJ 2 GM in SODIUM CHLORIDE 0.9% INJ 96 ML IV PRN ×2 (14:00→15:20)
--- NOTE | 2016-12-08 15:12 | HHI.CCPN ---
Subjective Remarks/Hospital Course This is an 81-year-old male who has had multiple readmissions over the past few months for a recurrent right-sided pleural effusion. [facility] with recurrent right-sided pleural effusion as well as hypoxia and somnolence. He was found to have significant hypercarbia and a PCO2 in the 90s. He was initially placed on BiPAP and admitted to the [facility]. He became more somnolent and his oxygen saturation began to decline. At this point a critical care medicine is consulted to evaluate and manage his hypercarbic respiratory failure. Because he is failed his trial of noninvasive positive pressure ventilation, we will move towards intubating the patient. I evaluated the patient and he is essentially unresponsive and obtunded and only minimally withdrawing to pain. I can obtain no additional history from the patient. Subjective: 11/09: Early this a.m. at approximately 06:30 the patient was noted to have a grand mal seizure lasting approximately 60 seconds followed by a small tonic- clonic seizure lasting 30 seconds involving the lower extremities. The patient received Ativan 2 mg with cessation of seizure activity. Stat CT of the brain without contrast was obtained showed no acute abnormality. EEG was obtained previously awaiting results. Prior to the event the patient was noted to be on a fentanyl infusion at approximately 250 mcg/h. The patient was noted to be a GCS 10T, squeezing my hand. 11/10: The patient was noted to have multiple seizures requiring interventions with IV Ativan. Described as tonic-clonic in nature with eyes rolled back in the head. Gross motor movement shaking 4 extremities. Today the patient was noted to have a positive growth and blood cultures. WBC count elevated. Ammonia level was drawn less than 10, lactate was noted to be 2.2 this morning. Pleural fluid culture negative growth to date. 11/11: On stimulation patient continues to have jerking movement of all extremities. EEG negative for seizures. Check MRI today. Dr. Kirkland is neurology. Remains on 2 mcg/min of Levophed 11/12: Per neurologist, patient had witnessed with tonic convulsions started over right arm and propagated to left UE and both LE with fluttering of the eyes and upward gaze.Loaded with Dilantin iv infusion and a maintenance dose of 100mg Q8h, Stat EEG negative for seizures. Its unclear to me whether it is seizure or myoclonus 11/13: No change in neuro status. Continues to have jerking movements off lower extremity when stimulated. EEG 2 have been negative for seizures. We'll hold sedation for neuro exam 11/14: On sedation hold opens eyes. Appears to follow commands and upper extremity. Still has some tremulousness of the extremities. Remains off pressors 11/15: Remains on Precedex intermittently following commands for RN. Placed on CPAP tolerating well. No evidence of myoclonus now 11/16: On 1.1 mcg/kg/hr of Precedex. No spontaneous eye opening but moves all extremities spontaneously. Not following commands will reduce Precedex, and start weaning trials 11/17: Mental status significantly improved patient following commands on Precedex. However chest tube was dislodged yesterday evening, now has bilateral pleural effusions left is more than right, appears large. Vent day 10 11/18: Off Precedex following commands upper extremities. But continues to fail C Pap trials due to tachypnea and low tidal volumes. Status post large-volume left thoracentesis yesterday with 1.2 L of old blood-tinged fluid removed. 11/19: Overnight agitated, requiring maximum dose Precedex 1.4 mcg per kg per hr and restraints. Currently heavily sedated. Chest x-ray shows increasing left effusion confirmed by ultrasound. We'll proceed with left pigtail catheter after consent. Continue to hold Coumadin due to hemorrhagic effusion 11/20: Left pigtail chest tube placed yesterday with a 30 mL output. Mentation improving now oriented follows commands. Requiring oxygen by nasal cannula. Slight increase in right effusion seen on chest x-ray 11/21: CT chest shows moderate left-sided pneumothorax. Eating continues to be slightly tachypneic but patient appears comfortable. Agitated requiring 4 point restraints. Also a liver enzymes are increasing most likely secondary to Dilantin. I will DC Dilantin and start him on Keppra 11/22 No acute events overnight. On Precedex drip. Afebrile. CXR this morning showed no evidence of PTX. 11/23 Patient is on Precedex 0.7 awake and alert on 2L oxygen with good sats. 11/24 Patient is off Precedex drip. Afebrile. Awake and alert. 11/25 Called by nurse as patient was diaphoretic, tachypneic, tachycardic, hypertensive minimally responsive and had O2 saturation in 80's he was subsequently intubated and placed on mechanical ventilation. CXR from earlier showed volume loss, consolidation RUL. 11/26 Patient is sedated with Diprivan and intubated. s/p bronch yesterday which showed mucous plugs on right CXR post bronch showed much improved aeration of right lung. Afebrile 11/27: Remains sedated with propofol, orally intubated on mechanical ventilation. 2 left-sided pigtail catheter is in place with posterior pigtail catheter having positive air leak. 11/28: Remains sedated, orally intubated on mechanical ventilation. One of the 2 pigtail catheters on the left side got dislodged in the morning by overnight caregiver RN. Patient did not drop O2 sats. Second pigtail catheter which is still in place does not have any air leak currently. Stat chest x-ray obtained by dc which shows small apical pneumothorax on the left. Peak airway pressures 14, patient is not having any issues with hypotension and desaturation. We'll repeat chest x-ray later today to follow-up on pneumothorax and decide regarding placing another chest tube. 11/29 Patient is sedated with Diprivan and intubated. Afebrile. 11/30 The patient remains on heparin infusion for occlusive DVT left cephalic vein , and scattered clots left brachial and left axillary veins. Noted magnesium level was decreased 11/28. Repeat magnesium level pending this a.m., will replete as necessary. 12/01 Tmax 100.2 The patient currently off sedation, not set appropriately when questioned. The patient tolerated CPAP trials 4 hours yesterday. Left pigtail chest tube no leak remains on 40 cm of water pressure. 12/02 Tmax 99.4. Heparin infusion held at 6 AM this morning in anticipation of tracheostomy and PEG placement. Tube feeds have been off since 12 midnight consents are noted in the chart. The patient was noted to remain on CPAP for approximately 4 hours yesterday without difficulty. 12/03: TMAX 99.9. The patient successfully underwent tracheostomy PEG tube placement yesterday. The patient will begin CPAP trials this a.m.. The patient was noted to have DVTs in the now right upper extremity, in conjunction with the existing left upper extremity DVT's. Tube feeds restarted without residuals 6 hours post placement of PEG. 12/04: Afebrile. Patient tolerating tube feeds, no residuals. Patient continues on heparin for occlusive DVT. Patient tolerated CPAP only 3 hours yesterday secondary to thickened secretions. Patient has not had a bowel movement greater than 3 days will increase bowel regimen. 12/05:Afebrile. Sedation discontinued, the patient is awake and alert, responsive to commands. Bronchial washings revealed Pseudomonas [place] and placed on tobramycin nebulizers 7 days. ID following, Dr. Hameed.Peer to peer planned telephone consultation today for transfer possibly to [facility]. Patient continues on heparin infusion for occlusive and nonocclusive DVT bilateral upper extremities. 12/06: Patient completely off all sedation responding well without agitation. Patient being transitioned to Coumadin, and willl discontinue heparin when therapeutic INR. Tentative plans to be transferred to [facility] on Friday. 12/07 no acute events overnight. INR this am 1.3. Patient continues on heparin infusion. The patient awake and responsive of all sedation. 12/08: Unable to contact [facility] specialty today for transfer to their facility. Attempted to contact [facility] for Peer to Peer conference, but unsuccessful. The patient meets the criteria today of having had his tracheostomy and PEG 7 days, and intubation for greater than 28 days. Plan to transfer tomorrow, with contact with case management. The patient appears in good spirits continues on CPAP awake alert interactive, responsive. Transitioning to by mouth Coumadin will discontinue heparin when INR is therapeutic. INR today 1.0, the patient continues on Coumadin 6 mg daily. Objective Vital Signs Date Time Temp Pulse Resp B/P Pulse Ox O2 Delivery O2 Flow Rate FiO2 12/08/16 10:00 85 12/08/16 08:00 45 12/08/16 07:16 99 12/08/16 04:00 98.5 18 132/63 Intake and Output 12/07/16 12/07/16 12/08/16 08:00 16:00 00:00 Intake Total 462 ml 560 ml 678 ml Output Total 403 ml 400 ml 900 ml Balance 59 ml 160 ml -222 ml Result Diagram: 12/08/16 1044 12/07/16 1100 Imaging Last Impressions Upper Extremity Ultrasound 11/29/16 0000 Signed Impressions: Service Date/Time: Tuesday, November 29, 2016 11:59 - CONCLUSION: Thrombus as described above. Clot in the deep venous system is accommodation of occlusive and nonocclusive clot. Kun Mendoza MD FACR Chest X-Ray 11/29/16 0000 Signed Impressions: Service Date/Time: Tuesday, November 29, 2016 07:29 - CONCLUSION: No change in bilateral pulmonary opacity. No evidence of pneumothorax. Endotracheal tube tip now 3 cm above the laura. Mathew Guerrero MD Chest CT 11/20/16 0000 Signed Impressions: Service Date/Time: October 09:37 - CONCLUSION: 1. Left pneumothorax without tension 2. Small loculated effusion medial right base 3. Pericardial effusion as above Jimi Chavez MD Liver Ultrasound 11/17/16 0000 Signed Impressions: Service Date/Time: Thursday, November 17, 2016 15:58 - CONCLUSION: 1. Increased liver echogenicity characteristic of mild fatty infiltration or hepatocellular disease. 2. Trace free fluid in the abdomen. Pleural effusions. Mild gallbladder wall thickening. Chaka Campos MD Brain MRI 11/11/16 0000 Signed Impressions: Service Date/Time: Friday, November 11, 2016 12:53 - CONCLUSION: 1. 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 2. 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 The others would be consistent with punctate, remote areas of hemorrhage suggesting possibility of amyloid. Eitan Mendoza MD Head CT 11/09/16 0000 Signed Impressions: Service Date/Time: Wednesday, November 09, 2016 10:29 - CONCLUSION: Stable CT scan of the brain. Pradeep Rodriguez MD Chest Tube Insertion 11/08/16 0000 Signed Impressions: Service Date/Time: Tuesday, November 08, 2016 12:46 - CONCLUSION: Uncomplicated right chest tube placement as above. 1500 cc of fluid removed and sent for culture. Post CT scan reveals a large. pleural rind . The right lung may well not reexpanded. A.m. chest x-ray is pending. Cultures pending. Kun Mendoza MD FACR CT Angiography 11/07/16 0000 Signed Impressions: Service Date/Time: October 20:40 - CONCLUSION: 1. No pulmonary embolus. 2. Marked cardiac enlargement, especially the atria. 3. Bilateral effusions and atelectasis about the same on the left and considerably worse on the right. Right pneumothorax seen previously has resolved. Dhruv Foster MD Objective Remarks GENERAL: Patient is 81yo tracheostomy 8.0 in situ, on sedation vacation the patient nodding responding to questions SKIN: Warm and dry. HEAD: Normocephalic. EYES: No scleral icterus. No injection or drainage. NECK: Supple, trachea midline. No JVD or lymphadenopathy. Orally intubated CARDIOVASCULAR: Regular rate and rhythm without murmurs, gallops, or rubs. RESPIRATORY: Breath sounds equal bilaterally. No accessory muscle use. GASTROINTESTINAL: Abdomen soft, non-tender, nondistended. MUSCULOSKELETAL: No cyanosis, + edema LUE. Neuro:RASS-2. Responding appropriately to yes and no questions. Moving extremities 4. Date of Insertion: Nov 08, 2016 A/P Assessment and Plan Assessment: This is an 81-year-old male with history of prior recurrent right pleural effusions and COPD now presents with acute hypercarbic and hypoxic respiratory failure which has failed noninvasive positive pressure ventilation. Intubated and placed on mechanical ventilation. Covering COPD exacerbation, as well as healthcare associated pneumonia given his history of being on [facility]quin at his [facility]. He remains critically ill. Not sure that we will be able to get him through this hospitalization, and his recurrent respiratory failures are clearly making him more deconditioned every time he comes in the hospital. Despite this, daughter continues to request aggressive measures. Extubated 11/18/16. Reintubated 11/25.percutaneous tracheostomy .Continuing CPAP trials. Plan by systems: Neurologic: Myoclonus-resolved Agitated delirium CO2 narcosis-resolved Metabolic encephalopathy Mild dementia -IV sedation discontinued 12/05. Patient nodding head appropriately to questions. Use Ativan PRN for breakthrough seizures /myoclonus -EEG negative 11/10/15, 11/11/16 (moderate to severe encephalopathy, no seizure) -11/08 CT of the brain-no acute abnormality. 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 Question of amyloid -On Keppra 500 mg by mouth twice a day Respiratory: Acute hypercarbic and hypoxic respiratory failure-extubated - Reintubated 11/25 Recurrent right pleural effusion s/p chest tube placement-dislodged 11/17 New moderate left pneumothorax-resolved Right pneumothorax-resolved Large hemorrhagic left pleural effusion status post thoracentesis 11/17/16, pigtail chest tube 11/19/16 Healthcare associated pneumonia COPD exacerbation Tracheostomy 12/02 POD #4 -Continue with vent support keep sat >92% -Bronchodilators, Mucomyst nebs -s/p Bronch 11/25: Mucous plugs on right CXR post bronch -much improved aeration of right lung Continue prednisone per Dr. Kitchen, -s/p anterior left anterior pigtail chest tube, continues on 20 cm of water suction --Status post left thoracentesis 11/17/16 with 1.2 L of hemorrhagic fluid removed. CXR/US shows reaccumulation of left pleural fluid. pigtail chest tube placed 11/19/1611/08 S/P CT guided IR drainage of recurrent right posterior pleural effusion, unable to perform pleurodesis, accidentally dislodged Monitor CT drainage. Patient has one pigtail catheter on the left side which has no air leak currently on 20 cm of water pressure, no drainage. One of the pigtail catheters got dislodged on 11/28 in a.m. -S/P tracheostomy 8.0 Shiley 12/02 -12/02CXR-1.2 cm small left pneumothorax, left chest tube on continuous suction 20 cmH2O -The patient remains on CPAP since 12/05 Cardiovascular: Severe pulmonary hypertension (PASP 85 on Echo 10/08/16, repeat echo 11/19/16 PASP was 47) A. fib RVR Hypertension Moderate to severe TR Continue with BP meds- (captopril and atenolol 11/14/16). Captopril 25 mg TID --Monitor HR and BP keep MAP>65mmHg --Repeat 2d echo 11/19/16 PASP was 47 compared to 85 on 10/18/16 Renal: Hypernatremia- resolved Monitor renal function, I/O's, electrolytes replacement per protocol. -On Lasix 20mg BID FEN/GI: Acute intravascular volume overload Acute protein calorie malnutritionsevere Elevated LFT's -Continue to monitor BMP -Glucerna 1.5 with goal rate 45ml/hr, no residuals noted -PEG tube placement- 12/02. Site clean without erythema or drainage -Bowel regimen Heme/ID: Healthcare associated pneumonia, staph aureus in sputum Leukocytosis-resolved Thrombocytopenia-resolved -Patient s/p Cefepime and Zithromax 11/08-11/13 and Rocephin 11/15-11/18 ID is following. Rocephin resumed for MSSA pneumonia on 11/26 -11/26 Sputum cx : Staph Aureus 11/08 blood -micrococcus 08/28 possible contaminant - Urine cultures-NGTD --Sputum cx 11/12/16 with staph aureus -patient continues on heparin infusion will continue to monitor. Patient transitioned to Coumadin, will discontinue heparin when INR is therapeutic. Endocrine: Hyperglycemia of critical illness-resolved -- SSI, medium scale, every 6 hours discontinued 12/01 Prophylaxis: GI Prophylaxis Protonix 40 mg IV every 24 hours DVT Prophylaxis --SCDs Doppler US LUE: Occlusive and non-occlusive clot in cephalic vein, scattered clot in brachial and axillary vein Coumadin resume 12/06 transitioning from heparin infusion. Lines: Peripheral IVs x 2. central line if indicated Vital Dispo: Palliative care is following. Discussed with INSTRUCTIONAL TECHNOLOGY SPECIALIST at bedside. Plan for transfer to select specialty hospital Friday or Friday. Attempts made today for transfer unsuccessful. Patient meets the requirements for transfer contact case management on Friday, for planned transfer. Level 3 Physician Kathrine Childers MD Dec 08, 2016 15:12
[2016-12-08] MEDS: WARFARIN SOD 6 MG TAB PO SCH (16:00)
[2016-12-09] VITALS (19 sets, daily range): BP systolic 128–168; BP diastolic 50–85; PULSE 76–97; RESP 18–29; TEMP 97.9–98.7; O2SAT 92–100
[2016-12-09 06:11] LABS: PROTHROMBIN TIME - PATIENT 11.4 SEC (9.8-11.6)
[2016-12-09] MEDS: CAPTOPRIL 25 MG TAB PO SCH ×3 (06:45→23:49)
[2016-12-09] MEDS: RESP: TOBRAMYCIN SULFATE 80 MG/2 ML NEB NEB SCH ×2 (07:42→21:56)
[2016-12-09] MEDS: CHLORHEXIDINE 0.12% (ORAL KIT) 15 ML CUP MT SCH ×2 (08:00→21:39)
[2016-12-09] MEDS: DOCUSATE SODIUM 100 MG/10 ML UDC PO SCH ×2 (09:00→21:38)
[2016-12-09] MEDS: SODIUM CHLORIDE 0.9% FLUSH 5 ML FLUSH IVF SCH (09:00)
[2016-12-09] MEDS: POLYETHYLENE GLYCOL 17 GM PKG PO SCH (09:00)
[2016-12-09] MEDS: levETIRAcetam 500 MG TAB PO SCH (09:00)
[2016-12-09] MEDS: SODIUM CHLORIDE 0.9% FLUSH 5 ML FLUSH FLUSH SCH ×2 (09:00→21:00)
[2016-12-09] MEDS: SENNOSIDES SYRUP 8.8 MG/5 ML CUP PO SCH (09:00)
[2016-12-09] MEDS: ATENOLOL 50 MG TAB PO SCH ×2 (09:00→21:38)
[2016-12-09] MEDS: FUROSEMIDE 20 MG TAB PO SCH (09:51)
[2016-12-09] MEDS: predniSONE 10 MG TAB PO SCH ×2 (09:51→21:38)
--- NOTE | 2016-12-09 11:48 | HHI.CCPN ---
Subjective Remarks/Hospital Course This is an 81-year-old male who has had multiple readmissions over the past few months for a recurrent right-sided pleural effusion. [facility] right-sided pleural effusion as well as hypoxia and somnolence. He was found to have significant hypercarbia and a PCO2 in the 90s. He was initially placed on BiPAP and admitted to the [facility]. He became more somnolent and his oxygen saturation began to decline. At this point a critical care medicine is consulted to evaluate and manage his hypercarbic respiratory failure. Because he is failed his trial of noninvasive positive pressure ventilation, we will move towards intubating the patient. I evaluated the patient and he is essentially unresponsive and obtunded and only minimally withdrawing to pain. I can obtain no additional history from the patient. Subjective: 11/09: Early this a.m. at approximately 06:30 the patient was noted to have a grand mal seizure lasting approximately 60 seconds followed by a small tonic- clonic seizure lasting 30 seconds involving the lower extremities. The patient received Ativan 2 mg with cessation of seizure activity. Stat CT of the brain without contrast was obtained showed no acute abnormality. EEG was obtained previously awaiting results. Prior to the event the patient was noted to be on a fentanyl infusion at approximately 250 mcg/h. The patient was noted to be a GCS 10T, squeezing my hand. 11/10: The patient was noted to have multiple seizures requiring interventions with IV Ativan. Described as tonic-clonic in nature with eyes rolled back in the head. Gross motor movement shaking 4 extremities. Today the patient was noted to have a positive growth and blood cultures. WBC count elevated. Ammonia level was drawn less than 10, lactate was noted to be 2.2 this morning. Pleural fluid culture negative growth to date. 11/11: On stimulation patient continues to have jerking movement of all extremities. EEG negative for seizures. Check MRI today. Dr. Kirkland is neurology. Remains on 2 mcg/min of Levophed 11/12: Per neurologist, patient had witnessed with tonic convulsions started over right arm and propagated to left UE and both LE with fluttering of the eyes and upward gaze.Loaded with Dilantin iv infusion and a maintenance dose of 100mg Q8h, Stat EEG negative for seizures. Its unclear to me whether it is seizure or myoclonus 11/13: No change in neuro status. Continues to have jerking movements off lower extremity when stimulated. EEG 2 have been negative for seizures. We'll hold sedation for neuro exam 11/14: On sedation hold opens eyes. Appears to follow commands and upper extremity. Still has some tremulousness of the extremities. Remains off pressors 11/15: Remains on Precedex intermittently following commands for RN. Placed on CPAP tolerating well. No evidence of myoclonus now 11/16: On 1.1 mcg/kg/hr of Precedex. No spontaneous eye opening but moves all extremities spontaneously. Not following commands will reduce Precedex, and start weaning trials 11/17: Mental status significantly improved patient following commands on Precedex. However chest tube was dislodged yesterday evening, now has bilateral pleural effusions left is more than right, appears large. Vent day 10 11/18: Off Precedex following commands upper extremities. But continues to fail C Pap trials due to tachypnea and low tidal volumes. Status post large-volume left thoracentesis yesterday with 1.2 L of old blood-tinged fluid removed. 11/19: Overnight agitated, requiring maximum dose Precedex 1.4 mcg per kg per hr and restraints. Currently heavily sedated. Chest x-ray shows increasing left effusion confirmed by ultrasound. We'll proceed with left pigtail catheter after consent. Continue to hold Coumadin due to hemorrhagic effusion 11/20: Left pigtail chest tube placed yesterday with a 30 mL output. Mentation improving now oriented follows commands. Requiring oxygen by nasal cannula. Slight increase in right effusion seen on chest x-ray 11/21: CT chest shows moderate left-sided pneumothorax. Eating continues to be slightly tachypneic but patient appears comfortable. Agitated requiring 4 point restraints. Also a liver enzymes are increasing most likely secondary to Dilantin. I will DC Dilantin and start him on Keppra 11/22 No acute events overnight. On Precedex drip. Afebrile. CXR this morning showed no evidence of PTX. 11/23 Patient is on Precedex 0.7 awake and alert on 2L oxygen with good sats. 11/24 Patient is off Precedex drip. Afebrile. Awake and alert. 11/25 Called by nurse as patient was diaphoretic, tachypneic, tachycardic, hypertensive minimally responsive and had O2 saturation in 80's he was subsequently intubated and placed on mechanical ventilation. CXR from earlier showed volume loss, consolidation RUL. 11/26 Patient is sedated with Diprivan and intubated. s/p bronch yesterday which showed mucous plugs on right CXR post bronch showed much improved aeration of right lung. Afebrile 11/27: Remains sedated with propofol, orally intubated on mechanical ventilation. 2 left-sided pigtail catheter is in place with posterior pigtail catheter having positive air leak. 11/28: Remains sedated, orally intubated on mechanical ventilation. One of the 2 pigtail catheters on the left side got dislodged in the morning by scene shifter RN. Patient did not drop O2 sats. Second pigtail catheter which is still in place does not have any air leak currently. Stat chest x-ray obtained by nh which shows small apical pneumothorax on the left. Peak airway pressures 14, patient is not having any issues with hypotension and desaturation. We'll repeat chest x-ray later today to follow-up on pneumothorax and decide regarding placing another chest tube. 11/29 Patient is sedated with Diprivan and intubated. Afebrile. 11/30 The patient remains on heparin infusion for occlusive DVT left cephalic vein , and scattered clots left brachial and left axillary veins. Noted magnesium level was decreased 11/28. Repeat magnesium level pending this a.m., will replete as necessary. 12/01 Tmax 100.2 The patient currently off sedation, not set appropriately when questioned. The patient tolerated CPAP trials 4 hours yesterday. Left pigtail chest tube no leak remains on 40 cm of water pressure. 12/02 Tmax 99.4. Heparin infusion held at 6 AM this morning in anticipation of tracheostomy and PEG placement. Tube feeds have been off since 12 midnight consents are noted in the chart. The patient was noted to remain on CPAP for approximately 4 hours yesterday without difficulty. 12/03: TMAX 99.9. The patient successfully underwent tracheostomy PEG tube placement yesterday. The patient will begin CPAP trials this a.m.. The patient was noted to have DVTs in the now right upper extremity, in conjunction with the existing left upper extremity DVT's. Tube feeds restarted without residuals 6 hours post placement of PEG. 12/04: Afebrile. Patient tolerating tube feeds, no residuals. Patient continues on heparin for occlusive DVT. Patient tolerated CPAP only 3 hours yesterday secondary to thickened secretions. Patient has not had a bowel movement greater than 3 days will increase bowel regimen. 12/05:Afebrile. Sedation discontinued, the patient is awake and alert, responsive to commands. Bronchial washings revealed Pseudomonas [place] and placed on tobramycin nebulizers 7 days. ID following, Dr. Hameed.Peer to peer planned telephone consultation today for transfer possibly to [facility]. Patient continues on heparin infusion for occlusive and nonocclusive DVT bilateral upper extremities. 12/06: Patient completely off all sedation responding well without agitation. Patient being transitioned to Coumadin, and willl discontinue heparin when therapeutic INR. Tentative plans to be transferred to [facility] on Friday. 12/07 no acute events overnight. INR this am 1.3. Patient continues on heparin infusion. The patient awake and responsive of all sedation. 12/08: Unable to contact [facility] specialty today for transfer to their facility. Attempted to contact [facility] for Peer to Peer conference, but unsuccessful. The patient meets the criteria today of having had his tracheostomy and PEG 7 days, and intubation for greater than 28 days. Plan to transfer tomorrow, with contact with case management. The patient appears in good spirits continues on CPAP awake alert interactive, responsive. Transitioning to by mouth Coumadin will discontinue heparin when INR is therapeutic. INR today 1.0, the patient continues on Coumadin 6 mg daily. 12/09 No events overnight. On no sedation. Afebrile. Objective Vital Signs Date Time Temp Pulse Resp B/P Pulse Ox O2 Delivery O2 Flow Rate FiO2 12/09/16 07:42 100 35 12/09/16 06:00 97 12/09/16 04:00 98.6 18 167/69 Intake and Output 12/08/16 12/08/16 12/09/16 08:00 16:00 00:00 Intake Total 532 ml 688 ml 1083 ml Output Total 400 ml 550 ml 800 ml Balance 132 ml 138 ml 283 ml Result Diagram: 12/08/16 1044 12/07/16 1100 Other Results Laboratory Tests Test 12/09/16 04:22 Prothrombin Time 11.4 SEC Prothromb Time International 1.0 RATIO Ratio Imaging Last Impressions Chest X-Ray 12/06/16 0600 Signed Impressions: Service Date/Time: Tuesday, December 06, 2016 03:49 - CONCLUSION: No evidence of pneumothorax. No significant changes. Pradeep Rodriguez MD Upper Extremity Ultrasound 12/04/16 0000 Signed Impressions: Service Date/Time: Sunday, December 04, 2016 17:25 - CONCLUSION: Bilateral upper extremity DVT as above. Dhruv Foster MD Chest CT 11/20/16 0000 Signed Impressions: Service Date/Time: October 09:37 - CONCLUSION: 1. Left pneumothorax without tension 2. Small loculated effusion medial right base 3. Pericardial effusion as above Jimi Chavez MD Liver Ultrasound 11/17/16 0000 Signed Impressions: Service Date/Time: Thursday, November 17, 2016 15:58 - CONCLUSION: 1. Increased liver echogenicity characteristic of mild fatty infiltration or hepatocellular disease. 2. Trace free fluid in the abdomen. Pleural effusions. Mild gallbladder wall thickening. Chaka Campos MD Brain MRI 11/11/16 0000 Signed Impressions: Service Date/Time: Friday, November 11, 2016 12:53 - CONCLUSION: 1. 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 2. 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 The others would be consistent with punctate, remote areas of hemorrhage suggesting possibility of amyloid. Eitan Mendoza MD Head CT 11/09/16 0000 Signed Impressions: Service Date/Time: Wednesday, November 09, 2016 10:29 - CONCLUSION: Stable CT scan of the brain. Pradeep Rodriguez MD Chest Tube Insertion 11/08/16 0000 Signed Impressions: Service Date/Time: Tuesday, November 08, 2016 12:46 - CONCLUSION: Uncomplicated right chest tube placement as above. 1500 cc of fluid removed and sent for culture. Post CT scan reveals a large. pleural rind . The right lung may well not reexpanded. A.m. chest x-ray is pending. Cultures pending. Kun Mendoza MD FACR CT Angiography 11/07/16 0000 Signed Impressions: Service Date/Time: October 20:40 - CONCLUSION: 1. No pulmonary embolus. 2. Marked cardiac enlargement, especially the atria. 3. Bilateral effusions and atelectasis about the same on the left and considerably worse on the right. Right pneumothorax seen previously has resolved. Dhruv Foster MD Objective Remarks GENERAL: Patient is 81yo tracheostomy 8.0 in situ, on sedation vacation the patient nodding responding to questions SKIN: Warm and dry. HEAD: Normocephalic. EYES: No scleral icterus. No injection or drainage. NECK: Supple, trachea midline. No JVD or lymphadenopathy. Orally intubated CARDIOVASCULAR: Regular rate and rhythm without murmurs, gallops, or rubs. RESPIRATORY: Breath sounds equal bilaterally. No accessory muscle use. GASTROINTESTINAL: Abdomen soft, non-tender, nondistended. MUSCULOSKELETAL: No cyanosis, + edema LUE. Neuro:RASS-2. Responding appropriately to yes and no questions. Moving extremities 4. Date of Insertion: Nov 08, 2016 A/P Assessment and Plan Assessment: This is an 81-year-old male with history of prior recurrent right pleural effusions and COPD now presents with acute hypercarbic and hypoxic respiratory failure which has failed noninvasive positive pressure ventilation. Intubated and placed on mechanical ventilation. Covering COPD exacerbation, as well as healthcare associated pneumonia given his [facility]. He remains critically ill. Not sure that we will be able to get him through this hospitalization, and his recurrent respiratory failures are clearly making him more deconditioned every time he comes in the hospital. Despite this, daughter continues to request aggressive measures. Extubated 11/18/16. Reintubated 11/25.percutaneous tracheostomy .Continuing CPAP trials. Plan by systems: Neurologic: Myoclonus-resolved Agitated delirium CO2 narcosis-resolved Metabolic encephalopathy Mild dementia -IV sedation discontinued 12/05. Patient nodding head appropriately to questions. Use Ativan PRN for breakthrough seizures /myoclonus -EEG negative 11/10/15, 11/11/16 (moderate to severe encephalopathy, no seizure) -11/08 CT of the brain-no acute abnormality. 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 Question of amyloid -On Keppra 500 mg by mouth twice a day Respiratory: Acute hypercarbic and hypoxic respiratory failure-extubated - Reintubated 11/25 Recurrent right pleural effusion s/p chest tube placement-dislodged 11/17 New moderate left pneumothorax-resolved Right pneumothorax-resolved Large hemorrhagic left pleural effusion status post thoracentesis 11/17/16, pigtail chest tube 11/19/16 Healthcare associated pneumonia COPD exacerbation Tracheostomy 12/02 POD #4 -Continue with vent support keep sat >92% -Bronchodilators, Mucomyst nebs -s/p Bronch 11/25: Mucous plugs on right CXR post bronch -much improved aeration of right lung Continue prednisone per Dr. Kitchen, -s/p anterior left anterior pigtail chest tube, continues on 20 cm of water suction --Status post left thoracentesis 11/17/16 with 1.2 L of hemorrhagic fluid removed. CXR/US shows reaccumulation of left pleural fluid. pigtail chest tube placed 11/19/1611/08 S/P CT guided IR drainage of recurrent right posterior pleural effusion, unable to perform pleurodesis, accidentally dislodged Monitor CT drainage. Patient has one pigtail catheter on the left side which has no air leak currently on 20 cm of water pressure, no drainage. One of the pigtail catheters got dislodged on 11/28 in a.m. -S/P tracheostomy 8.0 Tom 12/02 Cardiovascular: Severe pulmonary hypertension (PASP 85 on Echo 10/08/16, repeat echo 11/19/16 PASP was 47) A. fib RVR Hypertension Moderate to severe TR Continue with BP meds- (captopril and atenolol 11/14/16). --Monitor HR and BP keep MAP>65mmHg --Repeat 2d echo 11/19/16 PASP was 47 compared to 85 on 10/18/16 Renal: Hypernatremia- resolved Monitor renal function, I/O's, electrolytes replacement per protocol. -Decrease Lasix 20mg daily FEN/GI: Acute intravascular volume overload Acute protein calorie malnutritionsevere Elevated LFT's -Continue to monitor BMP -Glucerna 1.5 @60ml/hr, no residuals noted -PEG tube placement- 12/02. Site clean without erythema or drainage -Bowel regimen Heme/ID: Healthcare associated pneumonia, staph aureus in sputum Leukocytosis-resolved Thrombocytopenia-resolved -Patient s/p Cefepime and Zithromax 11/08-11/13 and Rocephin 11/15-11/18 ID is following. Rocephin resumed for MSSA pneumonia on 11/26- 12/05 -11/26 Sputum cx : Staph Aureus 11/08 blood -micrococcus 08/28 possible contaminant -Continue with abx per ID ( On Tobra nebs) - Urine cultures-NGTD --Sputum cx 11/12/16 with staph aureus -patient continues on heparin infusion will continue to monitor. Patient transitioned to Coumadin, will discontinue heparin when INR is therapeutic. Endocrine: Hyperglycemia of critical illness-resolved -- SSI, medium scale, every 6 hours discontinued 12/01 Prophylaxis: GI Prophylaxis Protonix 40 mg IV every 24 hours DVT Prophylaxis --SCDs Doppler US LUE: Occlusive and non-occlusive clot in cephalic vein, scattered clot in brachial and axillary vein Coumadin resume 12/06 monitor INR/PT Lines: Peripheral IVs x 2. Dispo: Palliative care is following. Discussed with SEISMOGRAPH COMPUTER at bedside. Plan for possible transfer to select specialty hospital today. Spoke to patient's daughter and updated her on patient's condition. Level 3 Otoniel Dominguez MD Dec 09, 2016 11:48
[2016-12-09 12:27] LABS: AUTOMATED NEUTROPHIL # 10.1 TH/MM3 (1.8-7.7); BASOPHIL % 0.2 % (0.0-2.0); EOSINOPHIL # 0.1 TH/MM3 (0-0.4); EOSINOPHIL % 0.5 % (0.0-4.0); HEMO FLAGS DIFF FINAL; LYMPH % 4.6 % (9.0-44.0); LYMPHOCYTE # 0.5 TH/MM3 (1.0-4.8); MEAN CELL VOLUME 99.1 FL (80.0-100.0); MEAN CORPUSCULAR HEMOGLOBIN 33.6 PG (27.0-34.0); MEAN CORPUSCULAR HGB CONC 33.9 % (32.0-36.0); MONO % 8.1 % (0.0-8.0); NEUT % 86.6 % (16.0-70.0); PLATELET COUNT 172 TH/MM3 (150-450); RED BLOOD COUNT 3.23 MIL/MM3 (4.50-5.90); RED CELL DISTRIBUTION WIDTH 15.5 % (11.6-17.2); WHITE BLOOD COUNT 11.7 TH/MM3 (4.0-11.0)
[2016-12-09 12:58] LABS: BICARBONATE 39.3 MEQ/L (21.0-32.0); MAGNESIUM 2.4 MG/DL (1.5-2.5); POTASSIUM 4.6 MEQ/L (3.5-5.1)
[2016-12-09] MEDS ORDERED: WARFARIN SOD 1 MG TAB PO SCH (16:00)
[2016-12-09] MEDS: WARFARIN SOD 6 MG TAB PO SCH (16:00)
[2016-12-09] MEDS ORDERED: Central Line Short Term Adult 7Fr or larger PRN NS Lock Flush IV FLUSH (22:00)
[2016-12-09] MEDS: levETIRAcetam 500 MG/5 ML UDC PO SCH (23:48)
[2016-12-10] VITALS (30 sets, daily range): BP systolic 111–196; BP diastolic 31–71; PULSE 69–88; RESP 21–40; TEMP 97.7–98.4; O2SAT 12–100
[2016-12-10] MEDS: LABETALOL HCL 100 MG/20 ML VIAL IV PUSH PRN ×2 (00:16→04:58)
[2016-12-10] MEDS ORDERED: SODIUM CHLORIDE FLUSH PRN IV FLUSH (00:30)
[2016-12-10] MEDS: CAPTOPRIL 25 MG TAB PO SCH ×3 (04:57→22:00)
[2016-12-10 06:36] LABS: INTERNATIONAL NORMALIZED RATIO 1.1 RATIO; PROTHROMBIN TIME - PATIENT 11.7 SEC (9.8-11.6)
[2016-12-10] MEDS: RESP: TOBRAMYCIN SULFATE 80 MG/2 ML NEB NEB SCH ×2 (07:43→20:09)
[2016-12-10] MEDS: CHLORHEXIDINE 0.12% (ORAL KIT) 15 ML CUP MT SCH ×2 (08:00→22:47)
[2016-12-10] MEDS: SENNOSIDES SYRUP 8.8 MG/5 ML CUP PO SCH (09:00)
[2016-12-10] MEDS: DOCUSATE SODIUM 100 MG/10 ML UDC PO SCH ×2 (09:00→21:00)
[2016-12-10] MEDS: SODIUM CHLORIDE FLUSH BID IV FLUSH SCH ×2 (09:00→22:47)
[2016-12-10] MEDS: POLYETHYLENE GLYCOL 17 GM PKG PO SCH (09:00)
[2016-12-10] MEDS ORDERED: Central Line Short Term Adult 7Fr or larger Daily NS Lock Flush IV FLUSH SCH (09:00)
[2016-12-10] MEDS: levETIRAcetam 500 MG/5 ML UDC PO SCH ×2 (10:08→21:00)
[2016-12-10] MEDS: predniSONE 10 MG TAB PO SCH ×2 (10:08→21:00)
[2016-12-10] MEDS: FUROSEMIDE 20 MG TAB PO SCH (10:08)
[2016-12-10] MEDS: ATENOLOL 50 MG TAB PO SCH ×2 (10:08→21:00)
[2016-12-10] MEDS: HEPARIN-D5W INJ 250 ML IV SCH (10:12)
[2016-12-10 11:40] LABS: AUTOMATED NEUTROPHIL # 8.8 TH/MM3 (1.8-7.7); BASOPHIL % 0.2 % (0.0-2.0); EOSINOPHIL # 0.1 TH/MM3 (0-0.4); EOSINOPHIL % 0.7 % (0.0-4.0); HEMATOCRIT 30.3 % (39.0-51.0); HEMO FLAGS DIFF FINAL; LYMPH % 6.3 % (9.0-44.0); LYMPHOCYTE # 0.7 TH/MM3 (1.0-4.8); MEAN CELL VOLUME 99.8 FL (80.0-100.0); MEAN CORPUSCULAR HEMOGLOBIN 31.8 PG (27.0-34.0); MEAN CORPUSCULAR HGB CONC 31.9 % (32.0-36.0); MONO % 9.2 % (0.0-8.0); NEUT % 83.6 % (16.0-70.0); PLATELET COUNT 167 TH/MM3 (150-450); RED BLOOD COUNT 3.03 MIL/MM3 (4.50-5.90); RED CELL DISTRIBUTION WIDTH 14.9 % (11.6-17.2); WHITE BLOOD COUNT 10.6 TH/MM3 (4.0-11.0)
[2016-12-10 11:48] LABS: POTASSIUM 4.3 MEQ/L (3.5-5.1)
[2016-12-10 11:51] LABS: APTT (PATIENT) 40.2 SEC (24.3-30.1)
[2016-12-10 11:52] LABS: BICARBONATE 37.7 MEQ/L (21.0-32.0); MAGNESIUM 2.5 MG/DL (1.5-2.5)
[2016-12-10] MEDS ORDERED: WARFARIN SOD 7.5 MG TAB PO SCH (16:00)
--- NOTE | 2016-12-10 16:46 | HHI.CCPN ---
Subjective Remarks/Hospital Course This is an 81-year-old male who has had multiple readmissions over the past few months for a recurrent right-sided pleural effusion. He represents from his care home facility with recurrent right-sided pleural effusion as well as hypoxia and somnolence. He was found to have significant hypercarbia and a PCO2 in the 90s. He was initially placed on BiPAP and admitted to the [facility]. He became more somnolent and his oxygen saturation began to decline. At this point a critical care medicine is consulted to evaluate and manage his hypercarbic respiratory failure. Because he is failed his trial of noninvasive positive pressure ventilation, we will move towards intubating the patient. I evaluated the patient and he is essentially unresponsive and obtunded and only minimally withdrawing to pain. I can obtain no additional history from the patient. Subjective: 11/09: Early this a.m. at approximately 06:30 the patient was noted to have a grand mal seizure lasting approximately 60 seconds followed by a small tonic- clonic seizure lasting 30 seconds involving the lower extremities. The patient received Ativan 2 mg with cessation of seizure activity. Stat CT of the brain without contrast was obtained showed no acute abnormality. EEG was obtained previously awaiting results. Prior to the event the patient was noted to be on a fentanyl infusion at approximately 250 mcg/h. The patient was noted to be a GCS 10T, squeezing my hand. 11/10: The patient was noted to have multiple seizures requiring interventions with IV Ativan. Described as tonic-clonic in nature with eyes rolled back in the head. Gross motor movement shaking 4 extremities. Today the patient was noted to have a positive growth and blood cultures. WBC count elevated. Ammonia level was drawn less than 10, lactate was noted to be 2.2 this morning. Pleural fluid culture negative growth to date. 11/11: On stimulation patient continues to have jerking movement of all extremities. EEG negative for seizures. Check MRI today. Dr. Kirkland is neurology. Remains on 2 mcg/min of Levophed 11/12: Per neurologist, patient had witnessed with tonic convulsions started over right arm and propagated to left UE and both LE with fluttering of the eyes and upward gaze.Loaded with Dilantin iv infusion and a maintenance dose of 100mg Q8h, Stat EEG negative for seizures. Its unclear to me whether it is seizure or myoclonus 11/13: No change in neuro status. Continues to have jerking movements off lower extremity when stimulated. EEG 2 have been negative for seizures. We'll hold sedation for neuro exam 11/14: On sedation hold opens eyes. Appears to follow commands and upper extremity. Still has some tremulousness of the extremities. Remains off pressors 11/15: Remains on Precedex intermittently following commands for RN. Placed on CPAP tolerating well. No evidence of myoclonus now 11/16: On 1.1 mcg/kg/hr of Precedex. No spontaneous eye opening but moves all extremities spontaneously. Not following commands will reduce Precedex, and start weaning trials 11/17: Mental status significantly improved patient following commands on Precedex. However chest tube was dislodged yesterday evening, now has bilateral pleural effusions left is more than right, appears large. Vent day 10 11/18: Off Precedex following commands upper extremities. But continues to fail C Pap trials due to tachypnea and low tidal volumes. Status post large-volume left thoracentesis yesterday with 1.2 L of old blood-tinged fluid removed. 11/19: Overnight agitated, requiring maximum dose Precedex 1.4 mcg per kg per hr and restraints. Currently heavily sedated. Chest x-ray shows increasing left effusion confirmed by ultrasound. We'll proceed with left pigtail catheter after consent. Continue to hold Coumadin due to hemorrhagic effusion 11/20: Left pigtail chest tube placed yesterday with a 30 mL output. Mentation improving now oriented follows commands. Requiring oxygen by nasal cannula. Slight increase in right effusion seen on chest x-ray 11/21: CT chest shows moderate left-sided pneumothorax. Eating continues to be slightly tachypneic but patient appears comfortable. Agitated requiring 4 point restraints. Also a liver enzymes are increasing most likely secondary to Dilantin. I will DC Dilantin and start him on Keppra 11/22 No acute events overnight. On Precedex drip. Afebrile. CXR this morning showed no evidence of PTX. 11/23 Patient is on Precedex 0.7 awake and alert on 2L oxygen with good sats. 11/24 Patient is off Precedex drip. Afebrile. Awake and alert. 11/25 Called by nurse as patient was diaphoretic, tachypneic, tachycardic, hypertensive minimally responsive and had O2 saturation in 80's he was subsequently intubated and placed on mechanical ventilation. CXR from earlier showed volume loss, consolidation RUL. 11/26 Patient is sedated with Diprivan and intubated. s/p bronch yesterday which showed mucous plugs on right CXR post bronch showed much improved aeration of right lung. Afebrile 11/27: Remains sedated with propofol, orally intubated on mechanical ventilation. 2 left-sided pigtail catheter is in place with posterior pigtail catheter having positive air leak. 11/28: Remains sedated, orally intubated on mechanical ventilation. One of the 2 pigtail catheters on the left side got dislodged in the morning by mini shifter RN. Patient did not drop O2 sats. Second pigtail catheter which is still in place does not have any air leak currently. Stat chest x-ray obtained by nh which shows small apical pneumothorax on the left. Peak airway pressures 14, patient is not having any issues with hypotension and desaturation. We'll repeat chest x-ray later today to follow-up on pneumothorax and decide regarding placing another chest tube. 11/29 Patient is sedated with Diprivan and intubated. Afebrile. 11/30 The patient remains on heparin infusion for occlusive DVT left cephalic vein , and scattered clots left brachial and left axillary veins. Noted magnesium level was decreased 11/28. Repeat magnesium level pending this a.m., will replete as necessary. 12/01 Tmax 100.2 The patient currently off sedation, not set appropriately when questioned. The patient tolerated CPAP trials 4 hours yesterday. Left pigtail chest tube no leak remains on 40 cm of water pressure. 12/02 Tmax 99.4. Heparin infusion held at 6 AM this morning in anticipation of tracheostomy and PEG placement. Tube feeds have been off since 12 midnight consents are noted in the chart. The patient was noted to remain on CPAP for approximately 4 hours yesterday without difficulty. 12/03: TMAX 99.9. The patient successfully underwent tracheostomy PEG tube placement yesterday. The patient will begin CPAP trials this a.m.. The patient was noted to have DVTs in the now right upper extremity, in conjunction with the existing left upper extremity DVT's. Tube feeds restarted without residuals 6 hours post placement of PEG. 12/04: Afebrile. Patient tolerating tube feeds, no residuals. Patient continues on heparin for occlusive DVT. Patient tolerated CPAP only 3 hours yesterday secondary to thickened secretions. Patient has not had a bowel movement greater than 3 days will increase bowel regimen. 12/05:Afebrile. Sedation discontinued, the patient is awake and alert, responsive to commands. Bronchial washings revealed Pseudomonas [place] and placed on tobramycin nebulizers 7 days. ID following, Dr. Hameed.Peer to peer planned telephone consultation today for transfer possibly to [facility]. Patient continues on heparin infusion for occlusive and nonocclusive DVT bilateral upper extremities. 12/06: Patient completely off all sedation responding well without agitation. Patient being transitioned to Coumadin, and willl discontinue heparin when therapeutic INR. Tentative plans to be transferred to [facility] on Friday. 12/07 no acute events overnight. INR this am 1.3. Patient continues on heparin infusion. The patient awake and responsive of all sedation. 12/08: Unable to contact [facility] specialty today for transfer to their facility. Attempted to contact [facility] for Peer to Peer conference, but unsuccessful. The patient meets the criteria today of having had his tracheostomy and PEG 7 days, and intubation for greater than 28 days. Plan to transfer tomorrow, with contact with case management. The patient appears in good spirits continues on CPAP awake alert interactive, responsive. Transitioning to by mouth Coumadin will discontinue heparin when INR is therapeutic. INR today 1.0, the patient continues on Coumadin 6 mg daily. 12/09 No events overnight. On no sedation. Afebrile. 12/10 Patient remains on ventilator via trach, afebrile. Objective Vital Signs Date Time Temp Pulse Resp B/P Pulse Ox O2 Delivery O2 Flow Rate FiO2 12/10/16 15:28 100 35 12/10/16 12:00 69 12/10/16 08:00 98.0 35 113/46 Intake and Output 12/09/16 12/09/16 12/10/16 08:00 16:00 00:00 Intake Total 606 ml 815 ml Output Total 501 ml 701 ml Balance 105 ml 114 ml Result Diagram: 12/10/16 1120 12/10/16 1120 Other Results Laboratory Tests Test 12/10/16 12/10/16 05:00 11:20 Prothrombin Time 11.7 SEC Prothromb Time International 1.1 RATIO Ratio White Blood Count 10.6 TH/MM3 Red Blood Count 3.03 MIL/MM3 Hemoglobin 9.6 GM/DL Hematocrit 30.3 % Mean Corpuscular Volume 99.8 FL Mean Corpuscular Hemoglobin 31.8 PG Mean Corpuscular Hemoglobin 31.9 % Concent Red Cell Distribution Width 14.9 % Platelet Count 167 TH/MM3 Mean Platelet Volume 8.1 FL Neutrophils (%) (Auto) 83.6 % Lymphocytes (%) (Auto) 6.3 % Monocytes (%) (Auto) 9.2 % Eosinophils (%) (Auto) 0.7 % Basophils (%) (Auto) 0.2 % Neutrophils # (Auto) 8.8 TH/MM3 Lymphocytes # (Auto) 0.7 TH/MM3 Monocytes # (Auto) 1.0 TH/MM3 Eosinophils # (Auto) 0.1 TH/MM3 Basophils # (Auto) 0.0 TH/MM3 CBC Comment DIFF FINAL Differential Comment Activated Partial 40.2 SEC Thromboplast Time Sodium Level 146 MEQ/L Potassium Level 4.3 MEQ/L Chloride Level 105 MEQ/L Carbon Dioxide Level 37.7 MEQ/L Anion Gap 3 MEQ/L Blood Urea Nitrogen 38 MG/DL Creatinine 0.51 MG/DL Estimat Glomerular Filtration 156 ML/MIN Rate Random Glucose 112 MG/DL Calcium Level 8.5 MG/DL Phosphorus Level 3.4 MG/DL Magnesium Level 2.5 MG/DL Imaging Last Impressions Chest X-Ray 12/06/16 0600 Signed Impressions: Service Date/Time: Tuesday, December 06, 2016 03:49 - CONCLUSION: No evidence of pneumothorax. No significant changes. Pradeep Rodriguez MD Upper Extremity Ultrasound 12/04/16 0000 Signed Impressions: Service Date/Time: Sunday, December 04, 2016 17:25 - CONCLUSION: Bilateral upper extremity DVT as above. Dhruv Foster MD Chest CT 11/20/16 0000 Signed Impressions: Service Date/Time: October 09:37 - CONCLUSION: 1. Left pneumothorax without tension 2. Small loculated effusion medial right base 3. Pericardial effusion as above Jimi Chavez MD Liver Ultrasound 11/17/16 0000 Signed Impressions: Service Date/Time: Thursday, November 17, 2016 15:58 - CONCLUSION: 1. Increased liver echogenicity characteristic of mild fatty infiltration or hepatocellular disease. 2. Trace free fluid in the abdomen. Pleural effusions. Mild gallbladder wall thickening. Chaka Campos MD Brain MRI 11/11/16 0000 Signed Impressions: Service Date/Time: Friday, November 11, 2016 12:53 - CONCLUSION: 1. 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 2. 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 The others would be consistent with punctate, remote areas of hemorrhage suggesting possibility of amyloid. Eitan Mendoza MD Head CT 11/09/16 0000 Signed Impressions: Service Date/Time: Wednesday, November 09, 2016 10:29 - CONCLUSION: Stable CT scan of the brain. Pradeep Rodriguez MD Chest Tube Insertion 11/08/16 0000 Signed Impressions: Service Date/Time: Tuesday, November 08, 2016 12:46 - CONCLUSION: Uncomplicated right chest tube placement as above. 1500 cc of fluid removed and sent for culture. Post CT scan reveals a large. pleural rind . The right lung may well not reexpanded. A.m. chest x-ray is pending. Cultures pending. Kun Mendoza MD FACR CT Angiography 11/07/16 0000 Signed Impressions: Service Date/Time: October 20:40 - CONCLUSION: 1. No pulmonary embolus. 2. Marked cardiac enlargement, especially the atria. 3. Bilateral effusions and atelectasis about the same on the left and considerably worse on the right. Right pneumothorax seen previously has resolved. Dhruv Foster MD Objective Remarks GENERAL: Patient is 81yo tracheostomy 8.0 in situ, on sedation vacation the patient nodding responding to questions SKIN: Warm and dry. HEAD: Normocephalic. EYES: No scleral icterus. No injection or drainage. NECK: Supple, trachea midline. No JVD or lymphadenopathy. Orally intubated CARDIOVASCULAR: Regular rate and rhythm without murmurs, gallops, or rubs. RESPIRATORY: Breath sounds equal bilaterally. No accessory muscle use. GASTROINTESTINAL: Abdomen soft, non-tender, nondistended. MUSCULOSKELETAL: No cyanosis, + edema LUE. Neuro:RASS-2. Responding appropriately to yes and no questions. Moving extremities 4. Date of Insertion: Nov 08, 2016 A/P Assessment and Plan Assessment: This is an 81-year-old male with history of prior recurrent right pleural effusions and COPD presented with acute hypercarbic and hypoxic respiratory failure which has failed noninvasive positive pressure ventilation. Intubated and placed on mechanical ventilation. Covering COPD exacerbation, as well as healthcare associated pneumonia given his history of being on Levaquin at his care home facility. He remains critically ill. Not sure that we will be able to get him through this hospitalization, and his recurrent respiratory failures are clearly making him more deconditioned every time he comes in the hospital. Despite this, daughter continues to request aggressive measures. Extubated 11/18/16. Reintubated 11/25.percutaneous tracheostomy .Continuing CPAP trials. Plan by systems: Neurologic: Myoclonus-resolved Agitated delirium CO2 narcosis-resolved Metabolic encephalopathy Mild dementia -IV sedation discontinued 12/05. Patient nodding head appropriately to questions. Use Ativan PRN for breakthrough seizures /myoclonus -EEG negative 11/10/15, 11/11/16 (moderate to severe encephalopathy, no seizure) -11/08 CT of the brain-no acute abnormality. 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 Question of amyloid -On Keppra 500 mg by mouth twice a day Respiratory: Acute hypercarbic and hypoxic respiratory failure-extubated - Reintubated 11/25 Recurrent right pleural effusion s/p chest tube placement-dislodged 11/17 New moderate left pneumothorax-resolved Right pneumothorax-resolved Large hemorrhagic left pleural effusion status post thoracentesis 11/17/16, pigtail chest tube 11/19/16 Healthcare associated pneumonia COPD exacerbation Tracheostomy 12/02 POD #4 -Continue with vent support keep sat >92% -Bronchodilators, -s/p Bronch 11/25: Mucous plugs on right CXR post bronch -much improved aeration of right lung Continue prednisone per Dr. Kitchen, -s/p anterior left anterior pigtail chest tube, continues on 20 cm of water suction --Status post left thoracentesis 11/17/16 with 1.2 L of hemorrhagic fluid removed. CXR/US shows reaccumulation of left pleural fluid. pigtail chest tube placed 11/19/1611/08 S/P CT guided IR drainage of recurrent right posterior pleural effusion, unable to perform pleurodesis, accidentally dislodged Monitor CT drainage. Patient has one pigtail catheter on the left side which has no air leak currently on 20 cm of water pressure, no drainage. One of the pigtail catheters got dislodged on 11/28 in a.m. -S/P tracheostomy 8.0 Shiley 12/02 Cardiovascular: Severe pulmonary hypertension (PASP 85 on Echo 10/08/16, repeat echo 11/19/16 PASP was 47) A. fib RVR Hypertension Moderate to severe TR Continue with BP meds- (captopril and atenolol 11/14/16). --Monitor HR and BP keep MAP>65mmHg --Repeat 2d echo 11/19/16 PASP was 47 compared to 85 on 10/18/16 Renal: Hypernatremia- resolved Monitor renal function, I/O's, electrolytes replacement per protocol. -On Lasix 20mg daily FEN/GI: Acute intravascular volume overload Acute protein calorie malnutritionsevere Elevated LFT's -Continue to monitor BMP -Glucerna 1.5 @60ml/hr, no residuals noted -PEG tube placement- 12/02. Site clean without erythema or drainage -Bowel regimen Heme/ID: Healthcare associated pneumonia, staph aureus in sputum Leukocytosis-resolved Thrombocytopenia-resolved -Patient s/p Cefepime and Zithromax 11/08-11/13 and Rocephin 11/15-11/18 ID is following. Rocephin resumed for MSSA pneumonia on 11/26- 12/05 -11/26 Sputum cx : Staph Aureus 11/08 blood -micrococcus 08/28 possible contaminant -Continue with abx per ID ( On Tobra nebs) - Urine cultures-NGTD --Sputum cx 11/12/16 with staph aureus -patient continues on heparin infusion will continue to monitor. Patient transitioned to Coumadin, will discontinue heparin when INR is therapeutic. -Pharmacy to dose coumadin Endocrine: Hyperglycemia of critical illness-resolved -- SSI, medium scale, every 6 hours discontinued 12/01 Prophylaxis: GI Prophylaxis Protonix 40 mg IV every 24 hours DVT Prophylaxis --SCDs Doppler US LUE: Occlusive and non-occlusive clot in cephalic vein, scattered clot in brachial and axillary vein Coumadin resume 12/06 monitor INR/PT Lines: Peripheral IVs x 2. Dispo: Palliative care is following. [facility] however awaiting clearance by patient's insurance ( [employer]). Spoke to patient's daughter yesterday and updated her on patient's condition. Level 3 Otoniel Dominguez MD Dec 10, 2016 16:46
[2016-12-10 20:41] LABS: APTT (PATIENT) 56.9 SEC (24.3-30.1)
[2016-12-10] MEDS ORDERED: levETIRAcetam 500 MG/5 ML UDC PO SCH (21:00)
[2016-12-11] VITALS (34 sets, daily range): BP systolic 119–159; BP diastolic 26–72; PULSE 25–96; RESP 22–68; TEMP 98–98.6; O2SAT 91–98
[2016-12-11 05:08] LABS: BASOPHIL % 0.2 % (0.0-2.0); EOSINOPHIL % 0.2 % (0.0-4.0); HEMATOCRIT 31.4 % (39.0-51.0); LYMPH % 6.2 % (9.0-44.0); LYMPHOCYTE # 0.8 TH/MM3 (1.0-4.8); MEAN CELL VOLUME 100.3 FL (80.0-100.0); MEAN CORPUSCULAR HGB CONC 31.9 % (32.0-36.0); NEUT % 86.4 % (16.0-70.0); PLATELET COUNT 197 TH/MM3 (150-450); RED BLOOD COUNT 3.13 MIL/MM3 (4.50-5.90); RED CELL DISTRIBUTION WIDTH 15.3 % (11.6-17.2); WHITE BLOOD COUNT 12.7 TH/MM3 (4.0-11.0)
[2016-12-11 05:15] LABS: HEMO FLAGS DIFF FINAL
[2016-12-11 05:26] LABS: CHLORIDE 106 MEQ/L (98-107); POTASSIUM 4.5 MEQ/L (3.5-5.1); SODIUM (NA) 147 MEQ/L (136-145)
[2016-12-11 05:32] LABS: ANION GAP 7 MEQ/L (5-15); BICARBONATE 34.1 MEQ/L (21.0-32.0); BLOOD UREA NITROGEN 35 MG/DL (7-18); MAGNESIUM 2.4 MG/DL (1.5-2.5)
[2016-12-11] MEDS: CAPTOPRIL 25 MG TAB PO SCH ×3 (05:33→22:31)
[2016-12-11 05:35] LABS: ALT (GPT) 74 U/L (12-78); AST (GOT) 60 U/L (15-37); GLOMERULAR FILTRATION RATE 171 ML/MIN (>89)
[2016-12-11 05:37] LABS: TOTAL BILIRUBIN ADULT 0.4 MG/DL (0.2-1.0)
[2016-12-11 05:38] LABS: ALKALINE PHOSPHATASE 185 U/L (45-117)
[2016-12-11 05:55] LABS: INTERNATIONAL NORMALIZED RATIO 1.1 RATIO
[2016-12-11 06:10] LABS: APTT (PATIENT) 58.5 SEC (24.3-30.1)
--- NOTE | 2016-12-11 06:47 | RADHPO ---
EXAM DATE/TIME: 12/11/2016 06:37 [facility] COMPARISON: CHEST SINGLE AP, December 04, 2016, 11:18. CHEST SINGLE AP, December 06, 2016, 3:49. INDICATIONS : Respiratory distress. MEDICAL HISTORY : Chronic obstructive pulmonary disease. Hypertension Hypercholesterolemia. Congestive heart failu re. A- fib. SURGICAL HISTORY : Thoracentesis. ENCOUNTER: Subsequent ACUITY: 3 weeks PAIN SCORE: Non-responsive. LOCATION: Bilateral chest FINDINGS: A single view of the chest demonstrates the the left-sided chest tube remains in good position with i ts tip overlying the left hilum. Moderate-sized bilateral pleural effusions. Tracheostomy tube in goo d position. The cardiac silhouette remains widened. Tortuous aorta. Osseous structures are intact. CONCLUSION: Moderate-sized bilateral pleural effusions. Left-sided pigtail catheter overlies left chest. No pneum othorax. Robbie Deal MD on December 11, 2016 at 6:44 Board Certified Radiologist. This report was verified electronically.
[2016-12-11] MEDS: RESP: TOBRAMYCIN SULFATE 80 MG/2 ML NEB NEB SCH ×2 (08:33→19:47)
[2016-12-11] MEDS: levETIRAcetam 500 MG/5 ML UDC PO SCH ×2 (08:45→21:10)
[2016-12-11] MEDS: SENNOSIDES SYRUP 8.8 MG/5 ML CUP PO SCH (08:45)
[2016-12-11] MEDS: predniSONE 10 MG TAB PO SCH ×2 (08:46→21:12)
[2016-12-11] MEDS: CHLORHEXIDINE 0.12% (ORAL KIT) 15 ML CUP MT SCH ×2 (08:46→21:12)
[2016-12-11] MEDS: FUROSEMIDE 20 MG TAB PO SCH (08:46)
[2016-12-11] MEDS: DOCUSATE SODIUM 100 MG/10 ML UDC PO SCH ×2 (08:46→21:10)
[2016-12-11] MEDS: POLYETHYLENE GLYCOL 17 GM PKG PO SCH (08:46)
[2016-12-11] MEDS: ATENOLOL 50 MG TAB PO SCH ×2 (08:48→21:12)
[2016-12-11] MEDS: HEPARIN-D5W INJ 250 ML IV SCH (11:07)
[2016-12-11] MEDS: SODIUM CHLORIDE FLUSH BID IV FLUSH SCH ×2 (11:10→21:12)
--- NOTE | 2016-12-11 16:51 | HHI.CCPN ---
Subjective Remarks/Hospital Course This is an 81-year-old male who has had multiple readmissions over the past few months for a recurrent right-sided pleural effusion. [facility] with recurrent right-sided pleural effusion as well as hypoxia and somnolence. He was found to have significant hypercarbia and a PCO2 in the 90s. He was initially placed on BiPAP and admitted to the [facility]. He became more somnolent and his oxygen saturation began to decline. At this point a critical care medicine is consulted to evaluate and manage his hypercarbic respiratory failure. Because he is failed his trial of noninvasive positive pressure ventilation, we will move towards intubating the patient. I evaluated the patient and he is essentially unresponsive and obtunded and only minimally withdrawing to pain. I can obtain no additional history from the patient. Subjective: 11/09: Early this a.m. at approximately 06:30 the patient was noted to have a grand mal seizure lasting approximately 60 seconds followed by a small tonic- clonic seizure lasting 30 seconds involving the lower extremities. The patient received Ativan 2 mg with cessation of seizure activity. Stat CT of the brain without contrast was obtained showed no acute abnormality. EEG was obtained previously awaiting results. Prior to the event the patient was noted to be on a fentanyl infusion at approximately 250 mcg/h. The patient was noted to be a GCS 10T, squeezing my hand. 11/10: The patient was noted to have multiple seizures requiring interventions with IV Ativan. Described as tonic-clonic in nature with eyes rolled back in the head. Gross motor movement shaking 4 extremities. Today the patient was noted to have a positive growth and blood cultures. WBC count elevated. Ammonia level was drawn less than 10, lactate was noted to be 2.2 this morning. Pleural fluid culture negative growth to date. 11/11: On stimulation patient continues to have jerking movement of all extremities. EEG negative for seizures. Check MRI today. Dr. Kirkland is neurology. Remains on 2 mcg/min of Levophed 11/12: Per neurologist, patient had witnessed with tonic convulsions started over right arm and propagated to left UE and both LE with fluttering of the eyes and upward gaze.Loaded with Dilantin iv infusion and a maintenance dose of 100mg Q8h, Stat EEG negative for seizures. Its unclear to me whether it is seizure or myoclonus 11/13: No change in neuro status. Continues to have jerking movements off lower extremity when stimulated. EEG 2 have been negative for seizures. We'll hold sedation for neuro exam 11/14: On sedation hold opens eyes. Appears to follow commands and upper extremity. Still has some tremulousness of the extremities. Remains off pressors 11/15: Remains on Precedex intermittently following commands for RN. Placed on CPAP tolerating well. No evidence of myoclonus now 11/16: On 1.1 mcg/kg/hr of Precedex. No spontaneous eye opening but moves all extremities spontaneously. Not following commands will reduce Precedex, and start weaning trials 11/17: Mental status significantly improved patient following commands on Precedex. However chest tube was dislodged yesterday evening, now has bilateral pleural effusions left is more than right, appears large. Vent day 10 11/18: Off Precedex following commands upper extremities. But continues to fail C Pap trials due to tachypnea and low tidal volumes. Status post large-volume left thoracentesis yesterday with 1.2 L of old blood-tinged fluid removed. 11/19: Overnight agitated, requiring maximum dose Precedex 1.4 mcg per kg per hr and restraints. Currently heavily sedated. Chest x-ray shows increasing left effusion confirmed by ultrasound. We'll proceed with left pigtail catheter after consent. Continue to hold Coumadin due to hemorrhagic effusion 11/20: Left pigtail chest tube placed yesterday with a 30 mL output. Mentation improving now oriented follows commands. Requiring oxygen by nasal cannula. Slight increase in right effusion seen on chest x-ray 11/21: CT chest shows moderate left-sided pneumothorax. Eating continues to be slightly tachypneic but patient appears comfortable. Agitated requiring 4 point restraints. Also a liver enzymes are increasing most likely secondary to Dilantin. I will DC Dilantin and start him on Keppra 11/22 No acute events overnight. On Precedex drip. Afebrile. CXR this morning showed no evidence of PTX. 11/23 Patient is on Precedex 0.7 awake and alert on 2L oxygen with good sats. 11/24 Patient is off Precedex drip. Afebrile. Awake and alert. 11/25 Called by nurse as patient was diaphoretic, tachypneic, tachycardic, hypertensive minimally responsive and had O2 saturation in 80's he was subsequently intubated and placed on mechanical ventilation. CXR from earlier showed volume loss, consolidation RUL. 11/26 Patient is sedated with Diprivan and intubated. s/p bronch yesterday which showed mucous plugs on right CXR post bronch showed much improved aeration of right lung. Afebrile 11/27: Remains sedated with propofol, orally intubated on mechanical ventilation. 2 left-sided pigtail catheter is in place with posterior pigtail catheter having positive air leak. 11/28: Remains sedated, orally intubated on mechanical ventilation. One of the 2 pigtail catheters on the left side got dislodged in the morning by manufacturing shift supervisor RN. Patient did not drop O2 sats. Second pigtail catheter which is still in place does not have any air leak currently. Stat chest x-ray obtained by ak which shows small apical pneumothorax on the left. Peak airway pressures 14, patient is not having any issues with hypotension and desaturation. We'll repeat chest x-ray later today to follow-up on pneumothorax and decide regarding placing another chest tube. 11/29 Patient is sedated with Diprivan and intubated. Afebrile. 11/30 The patient remains on heparin infusion for occlusive DVT left cephalic vein , and scattered clots left brachial and left axillary veins. Noted magnesium level was decreased 11/28. Repeat magnesium level pending this a.m., will replete as necessary. 12/01 Tmax 100.2 The patient currently off sedation, not set appropriately when questioned. The patient tolerated CPAP trials 4 hours yesterday. Left pigtail chest tube no leak remains on 40 cm of water pressure. 12/02 Tmax 99.4. Heparin infusion held at 6 AM this morning in anticipation of tracheostomy and PEG placement. Tube feeds have been off since 12 midnight consents are noted in the chart. The patient was noted to remain on CPAP for approximately 4 hours yesterday without difficulty. 12/03: TMAX 99.9. The patient successfully underwent tracheostomy PEG tube placement yesterday. The patient will begin CPAP trials this a.m.. The patient was noted to have DVTs in the now right upper extremity, in conjunction with the existing left upper extremity DVT's. Tube feeds restarted without residuals 6 hours post placement of PEG. 12/04: Afebrile. Patient tolerating tube feeds, no residuals. Patient continues on heparin for occlusive DVT. Patient tolerated CPAP only 3 hours yesterday secondary to thickened secretions. Patient has not had a bowel movement greater than 3 days will increase bowel regimen. 12/05:Afebrile. Sedation discontinued, the patient is awake and alert, responsive to commands. Bronchial washings revealed Pseudomonas [place] and placed on tobramycin nebulizers 7 days. ID following, Dr. Hameed.Peer to peer planned telephone consultation today for transfer possibly to [facility]. Patient continues on heparin infusion for occlusive and nonocclusive DVT bilateral upper extremities. 12/06: Patient completely off all sedation responding well without agitation. Patient being transitioned to Coumadin, and willl discontinue heparin when therapeutic INR. Tentative plans to be transferred to [facility] on Friday. 12/07 no acute events overnight. INR this am 1.3. Patient continues on heparin infusion. The patient awake and responsive of all sedation. 12/08: Unable to contact [facility] today for transfer to their facility. Attempted to contact [facility] for Peer to Peer conference, but unsuccessful. The patient meets the criteria today of having had his tracheostomy and PEG 7 days, and intubation for greater than 28 days. Plan to transfer tomorrow, with contact with case management. The patient appears in good spirits continues on CPAP awake alert interactive, responsive. Transitioning to by mouth Coumadin will discontinue heparin when INR is therapeutic. INR today 1.0, the patient continues on Coumadin 6 mg daily. 12/09 No events overnight. On no sedation. Afebrile. 12/10 Patient remains on ventilator via trach, afebrile. 12/11 No acute events overnight. Patient is more awake and alert today. Afebrile. On Heparin drip. Objective Vital Signs Date Time Temp Pulse Resp B/P Pulse Ox O2 Delivery O2 Flow Rate FiO2 12/11/16 16:00 83 12/11/16 16:00 40 12/11/16 16:00 60 153/49 92 12/11/16 12:00 98.0 Intake and Output 12/10/16 12/10/16 12/11/16 08:00 16:00 00:00 Intake Total 515 ml 700 ml 372 ml Output Total 750 ml 750 ml 250 ml Balance -235 ml -50 ml 122 ml Result Diagram: 12/11/16 0445 12/11/16 0445 Other Results Laboratory Tests Test 12/10/16 12/11/16 20:23 04:45 Activated Partial 56.9 SEC 58.5 SEC Thromboplast Time White Blood Count 12.7 TH/MM3 Red Blood Count 3.13 MIL/MM3 Hemoglobin 10.0 GM/DL Hematocrit 31.4 % Mean Corpuscular Volume 100.3 FL Mean Corpuscular Hemoglobin 32.0 PG Mean Corpuscular Hemoglobin 31.9 % Concent Red Cell Distribution Width 15.3 % Platelet Count 197 TH/MM3 Mean Platelet Volume 8.7 FL Neutrophils (%) (Auto) 86.4 % Lymphocytes (%) (Auto) 6.2 % Monocytes (%) (Auto) 7.0 % Eosinophils (%) (Auto) 0.2 % Basophils (%) (Auto) 0.2 % Neutrophils # (Auto) 11.0 TH/MM3 Lymphocytes # (Auto) 0.8 TH/MM3 Monocytes # (Auto) 0.9 TH/MM3 Eosinophils # (Auto) 0.0 TH/MM3 Basophils # (Auto) 0.0 TH/MM3 CBC Comment DIFF FINAL Differential Comment Prothrombin Time 12.0 SEC Prothromb Time International 1.1 RATIO Ratio Sodium Level 147 MEQ/L Potassium Level 4.5 MEQ/L Chloride Level 106 MEQ/L Carbon Dioxide Level 34.1 MEQ/L Anion Gap 7 MEQ/L Blood Urea Nitrogen 35 MG/DL Creatinine 0.47 MG/DL Estimat Glomerular Filtration 171 ML/MIN Rate Random Glucose 121 MG/DL Calcium Level 8.8 MG/DL Phosphorus Level 3.1 MG/DL Magnesium Level 2.4 MG/DL Total Bilirubin 0.4 MG/DL Aspartate Amino Transf 60 U/L (AST/SGOT) Alanine Aminotransferase 74 U/L (ALT/SGPT) Alkaline Phosphatase 185 U/L Total Protein 6.3 GM/DL Albumin 1.9 GM/DL Imaging Last Impressions Chest X-Ray 12/11/16 0000 Signed Impressions: Service Date/Time: Sunday, December 11, 2016 06:37 - CONCLUSION: Moderate-sized bilateral pleural effusions. Left-sided pigtail catheter overlies left chest. No pneumothorax. Robbie Deal MD Upper Extremity Ultrasound 12/04/16 0000 Signed Impressions: Service Date/Time: Sunday, December 04, 2016 17:25 - CONCLUSION: Bilateral upper extremity DVT as above. Dhruv Foster MD Chest CT 11/20/16 0000 Signed Impressions: Service Date/Time: October 09:37 - CONCLUSION: 1. Left pneumothorax without tension 2. Small loculated effusion medial right base 3. Pericardial effusion as above Jimi Chavez MD Liver Ultrasound 11/17/16 0000 Signed Impressions: Service Date/Time: Thursday, November 17, 2016 15:58 - CONCLUSION: 1. Increased liver echogenicity characteristic of mild fatty infiltration or hepatocellular disease. 2. Trace free fluid in the abdomen. Pleural effusions. Mild gallbladder wall thickening. Chaka Campos MD Brain MRI 11/11/16 0000 Signed Impressions: Service Date/Time: Friday, November 11, 2016 12:53 - CONCLUSION: 1. 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 2. 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 The others would be consistent with punctate, remote areas of hemorrhage suggesting possibility of amyloid. Eitan Mendoza MD Head CT 11/09/16 0000 Signed Impressions: Service Date/Time: Wednesday, November 09, 2016 10:29 - CONCLUSION: Stable CT scan of the brain. Pradeep Rodriguez MD Chest Tube Insertion 11/08/16 0000 Signed Impressions: Service Date/Time: Tuesday, November 08, 2016 12:46 - CONCLUSION: Uncomplicated right chest tube placement as above. 1500 cc of fluid removed and sent for culture. Post CT scan reveals a large. pleural rind . The right lung may well not reexpanded. A.m. chest x-ray is pending. Cultures pending. Kun Mendoza MD FACR CT Angiography 11/07/16 0000 Signed Impressions: Service Date/Time: October 20:40 - CONCLUSION: 1. No pulmonary embolus. 2. Marked cardiac enlargement, especially the atria. 3. Bilateral effusions and atelectasis about the same on the left and considerably worse on the right. Right pneumothorax seen previously has resolved. Dhruv Foster MD Objective Remarks GENERAL: Patient is 81yo tracheostomy 8.0 in situ, on sedation vacation the patient nodding responding to questions SKIN: Warm and dry. HEAD: Normocephalic. EYES: No scleral icterus. No injection or drainage. NECK: Supple, trachea midline. No JVD or lymphadenopathy. Orally intubated CARDIOVASCULAR: Regular rate and rhythm without murmurs, gallops, or rubs. RESPIRATORY: Breath sounds equal bilaterally. No accessory muscle use. GASTROINTESTINAL: Abdomen soft, non-tender, nondistended. MUSCULOSKELETAL: No cyanosis, + edema LUE. Neuro:RASS-2. Responding appropriately to yes and no questions. Moving extremities 4. Date of Insertion: Nov 08, 2016 A/P Assessment and Plan Assessment: This is an 81-year-old male with history of prior recurrent right pleural effusions and COPD presented with acute hypercarbic and hypoxic respiratory failure which has failed noninvasive positive pressure ventilation. Intubated and placed on mechanical ventilation. Covering COPD exacerbation, as well as healthcare associated pneumonia given his history of [facility] on [facility]. He remains critically ill. Not sure that we will be able to get him through this hospitalization, and his recurrent respiratory failures are clearly making him more deconditioned every time he comes in the hospital. Despite this, daughter continues to request aggressive measures. Extubated 11/18/16. Reintubated 11/25.percutaneous tracheostomy .Continuing CPAP trials. Plan by systems: Neurologic: Myoclonus-resolved Agitated delirium CO2 narcosis-resolved Metabolic encephalopathy Mild dementia -Patient is more awake and alert today -IV sedation discontinued 12/05. Patient nodding head appropriately to questions. Use Ativan PRN for breakthrough seizures /myoclonus -EEG negative 11/10/15, 11/11/16 (moderate to severe encephalopathy, no seizure) -11/08 CT of the brain-no acute abnormality. 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 Question of amyloid -On Keppra 500 mg by mouth twice a day Respiratory: Acute hypercarbic and hypoxic respiratory failure-extubated - Reintubated 11/25 Recurrent right pleural effusion s/p chest tube placement-dislodged 11/17 New moderate left pneumothorax-resolved Right pneumothorax-resolved Large hemorrhagic left pleural effusion status post thoracentesis 11/17/16, pigtail chest tube 11/19/16 Healthcare associated pneumonia COPD exacerbation Tracheostomy 12/02 POD #4 -Continue with vent support keep sat >92% -Bronchodilators, pulm toilet, trach care Continue prednisone per Dr. Kitchen, -s/p anterior left anterior pigtail chest tube, continues on 20 cm of water suction -11/08 S/P CT guided IR drainage of recurrent right posterior pleural effusion, unable to perform pleurodesis, accidentally dislodged Monitor CT drainage. Patient has one pigtail catheter on the left side which has no air leak currently on 20 cm of water pressure, no drainage. One of the pigtail catheters got dislodged on 11/28 in a.m. -S/P tracheostomy 8.0 Shiley 12/02 Cardiovascular: Severe pulmonary hypertension (PASP 85 on Echo 10/08/16, repeat echo 11/19/16 PASP was 47) A. fib RVR Hypertension Moderate to severe TR Continue with BP meds- (captopril and atenolol 11/14/16). --Monitor HR and BP keep MAP>65mmHg --Repeat 2d echo 11/19/16 PASP was 47 compared to 85 on 10/18/16 Renal: Hypernatremia- resolved Monitor renal function, I/O's, electrolytes replacement per protocol. -On Lasix 20mg daily FEN/GI: Acute intravascular volume overload Acute protein calorie malnutritionsevere Elevated LFT's -Glucerna 1.5 @ goal rate 60ml/hr, no residuals noted -PEG tube placement- 12/02. Site clean without erythema or drainage -Bowel regimen Heme/ID: Healthcare associated pneumonia, staph aureus in sputum Leukocytosis-resolved Thrombocytopenia-resolved -Patient s/p Cefepime and Zithromax 11/08-11/13 and Rocephin 11/15-11/18 ID is following. Rocephin resumed for MSSA pneumonia on 11/26- 12/05 -11/26 Sputum cx : Staph Aureus 11/08 blood -micrococcus 08/28 possible contaminant -Continue with abx per ID ( On Tobra nebs till 12/12) - Urine cultures-NGTD --Sputum cx 11/12/16 with staph aureus -patient continues on heparin infusion will continue to monitor. Patient transitioned to Coumadin, will discontinue heparin when INR is therapeutic. -Pharmacy to dose coumadin Endocrine: Hyperglycemia of critical illness-resolved -- SSI, medium scale, every 6 hours discontinued 12/01 Prophylaxis: GI Prophylaxis Protonix 40 mg IV every 24 hours DVT Prophylaxis --SCDs Doppler US LUE: Occlusive and non-occlusive clot in cephalic vein, scattered clot in brachial and axillary vein Coumadin resume 12/06 monitor INR/PT Lines: Peripheral IVs x 2. Dispo: Palliative care is following. [facility] awaiting clearance by patient's insurance ( [employer]). Will consult [facility] for medical management Level 3 Otoniel Dominguez MD Dec 11, 2016 16:51
[2016-12-11] MEDS: WARFARIN SOD 10 MG TAB PO SCH (17:45)
--- NOTE | 2016-12-11 19:58 | RADHPO ---
EXAM DATE/TIME: 12/11/2016 19:31 [place] COMPARISON: CHEST SINGLE AP, December 11, 2016, 6:37. INDICATIONS : Chest tube pulled out by patient. Evaluate for pneumothorax. MEDICAL HISTORY : Chronic obstructive pulmonary disease. Hypertension. Hypercholesterolemia. Congestive heart failure. A- fib. SURGICAL HISTORY : Thoracentesis. ENCOUNTER: Subsequent ACUITY: 3 weeks PAIN SCORE: Non-responsive. LOCATION: Bilateral chest FINDINGS: A single portable frontal view the chest shows interval removal of the small caliber left thoracostom y tube. No pneumothorax. Bilateral pleural effusions and bibasilar infiltrates are stable. Heart dixon ins enlarged. Tracheostomy tube noted. CONCLUSION: No pneumothorax following left thoracostomy tube removal. Unchanged cardiomegaly with bilateral pleur al effusions and bibasilar infiltrates. Charbel Fuchs Jr., MD on December 11, 2016 at 19:55 Board Certified Radiologist. This report was verified electronically.
[2016-12-11] MEDS: RESP: ALBUTEROL 2.5 MG/IPRATROPIUM 0.5 MG NEB (SCH) NEB (21:36)
[2016-12-12] VITALS (31 sets, daily range): BP systolic 124–182; BP diastolic 31–73; PULSE 72–95; RESP 20–68; TEMP 97.8–98.9; O2SAT 90–100
[2016-12-12] MEDS: RESP: ALBUTEROL 2.5 MG/IPRATROPIUM 0.5 MG NEB (SCH) NEB ×4 (04:06→22:04)
[2016-12-12 04:35] LABS: AUTOMATED NEUTROPHIL # 10.7 TH/MM3 (1.8-7.7); BASOPHIL # 0.2 TH/MM3 (0-0.2); BASOPHIL % 1.9 % (0.0-2.0); EOSINOPHIL % 0.2 % (0.0-4.0); HEMATOCRIT 32.4 % (39.0-51.0); LYMPH % 6.4 % (9.0-44.0); LYMPHOCYTE # 0.8 TH/MM3 (1.0-4.8); MEAN CELL VOLUME 99.6 FL (80.0-100.0); MEAN CORPUSCULAR HEMOGLOBIN 31.9 PG (27.0-34.0); MONO % 8.5 % (0.0-8.0); PLATELET COUNT 214 TH/MM3 (150-450); RED BLOOD COUNT 3.25 MIL/MM3 (4.50-5.90); RED CELL DISTRIBUTION WIDTH 15.3 % (11.6-17.2); WHITE BLOOD COUNT 12.8 TH/MM3 (4.0-11.0)
[2016-12-12 04:37] LABS: HEMO FLAGS AUTO DIFF
[2016-12-12 04:45] LABS: CHLORIDE 107 MEQ/L (98-107); POTASSIUM 4.8 MEQ/L (3.5-5.1); SODIUM (NA) 146 MEQ/L (136-145)
[2016-12-12 04:47] LABS: INTERNATIONAL NORMALIZED RATIO 1.2 RATIO; PROTHROMBIN TIME - PATIENT 13.3 SEC (9.8-11.6)
[2016-12-12 04:50] LABS: ANION GAP 8 MEQ/L (5-15); BICARBONATE 31.5 MEQ/L (21.0-32.0); BLOOD UREA NITROGEN 32 MG/DL (7-18); MAGNESIUM 2.3 MG/DL (1.5-2.5)
[2016-12-12 04:53] LABS: ALT (GPT) 75 U/L (12-78); AST (GOT) 53 U/L (15-37); GLOMERULAR FILTRATION RATE 167 ML/MIN (>89); OVALOCYTES 1+ (NORMAL); PLATELET ESTIMATE SMEAR NORMAL (NORMAL); PLATELET MORPHOLOGY NORMAL (NORMAL); SCAN/DIFF AUTO DIFF CONFIRMED
[2016-12-12 04:54] LABS: TOTAL BILIRUBIN ADULT 0.3 MG/DL (0.2-1.0)
[2016-12-12 04:56] LABS: ALKALINE PHOSPHATASE 197 U/L (45-117)
[2016-12-12] MEDS: CAPTOPRIL 25 MG TAB PO SCH ×3 (06:22→20:18)
[2016-12-12] MEDS: RESP: TOBRAMYCIN SULFATE 80 MG/2 ML NEB NEB SCH (07:30)
[2016-12-12] MEDS: CHLORHEXIDINE 0.12% (ORAL KIT) 15 ML CUP MT SCH ×2 (08:00→20:20)
[2016-12-12] MEDS: SENNOSIDES SYRUP 8.8 MG/5 ML CUP PO SCH (09:00)
[2016-12-12] MEDS: SODIUM CHLORIDE FLUSH BID IV FLUSH SCH ×2 (09:00→20:20)
[2016-12-12] MEDS: DOCUSATE SODIUM 100 MG/10 ML UDC PO SCH ×2 (09:00→20:18)
[2016-12-12] MEDS: POLYETHYLENE GLYCOL 17 GM PKG PO SCH (09:00)
--- NOTE | 2016-12-12 09:13 | HHI.PR ---
Subjective Remarks Follow up for respiratory failure, on ventilator. [facility] was consulted by critical care for medical management. Patient currently on heparin drip overlapped with warfarin for DVT. Objective Vitals Vital Signs Date Time Temp Pulse Resp B/P Pulse Ox O2 Delivery O2 Flow Rate FiO2 12/12/16 07:39 97 35 12/12/16 06:02 84 24 180/63 95 12/12/16 05:02 84 25 163/43 98 12/12/16 04:05 96 40 12/12/16 04:04 97.8 82 21 143/48 94 12/12/16 03:02 74 22 124/31 96 12/12/16 02:02 82 25 141/73 97 12/12/16 01:31 40 12/12/16 01:30 96 40 12/12/16 01:02 86 24 148/52 95 12/12/16 00:02 97.9 86 22 158/55 95 12/12/16 00:00 40 12/11/16 23:01 25 30 156/68 94 12/11/16 22:01 90 23 137/47 98 12/11/16 21:55 96 40 12/11/16 21:01 96 22 159/63 94 12/11/16 20:01 98.0 92 26 119/53 94 12/11/16 20:00 88 12/11/16 20:00 40 12/11/16 19:50 97 40 12/11/16 18:00 90 12/11/16 17:10 97 40 12/11/16 16:00 83 12/11/16 16:00 40 12/11/16 16:00 80 60 153/49 92 12/11/16 14:11 96 40 12/11/16 14:00 82 12/11/16 12:00 98.0 86 34 146/72 95 12/11/16 12:00 81 12/11/16 12:00 40 12/11/16 11:23 94 40 12/11/16 11:00 80 40 126/63 91 12/11/16 10:00 86 27 132/53 96 12/11/16 10:00 82 I/O 12/11/16 12/11/16 12/11/16 12/12/16 12/12/16 12/12/16 07:00 15:00 23:00 07:00 15:00 23:00 Intake Total 688 ml 888 ml 417 ml 637 ml Output Total 475 ml 920 ml 450 ml 400 ml Balance 213 ml -32 ml -33 ml 237 ml IV Total 93 ml 148 ml 69 ml 99 ml Tube Feeding 495 ml 740 ml 348 ml 538 ml Other 100 ml Output Urine Total 475 ml 920 ml 450 ml 400 ml Stool Total 0 ml Result Diagram: 12/12/16 0421 12/12/16 0421 Imaging Last Impressions Chest X-Ray 12/11/16 0000 Signed Impressions: Service Date/Time: Sunday, December 11, 2016 19:31 - CONCLUSION: No pneumothorax following left thoracostomy tube removal. Unchanged cardiomegaly with bilateral pleural effusions and bibasilar infiltrates. Charbel Fuchs Jr., MD Upper Extremity Ultrasound 12/04/16 0000 Signed Impressions: Service Date/Time: Sunday, December 04, 2016 17:25 - CONCLUSION: Bilateral upper extremity DVT as above. Dhruv Foster MD Chest CT 11/20/16 0000 Signed Impressions: Service Date/Time: October 09:37 - CONCLUSION: 1. Left pneumothorax without tension 2. Small loculated effusion medial right base 3. Pericardial effusion as above Jimi Chavez MD Liver Ultrasound 11/17/16 0000 Signed Impressions: Service Date/Time: Thursday, November 17, 2016 15:58 - CONCLUSION: 1. Increased liver echogenicity characteristic of mild fatty infiltration or hepatocellular disease. 2. Trace free fluid in the abdomen. Pleural effusions. Mild gallbladder wall thickening. Chaka Campos MD Brain MRI 11/11/16 0000 Signed Impressions: Service Date/Time: Friday, November 11, 2016 12:53 - CONCLUSION: 1. 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 2. 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 The others would be consistent with punctate, remote areas of hemorrhage suggesting possibility of amyloid. Eitan Mendoza MD Head CT 11/09/16 0000 Signed Impressions: Service Date/Time: Wednesday, November 09, 2016 10:29 - CONCLUSION: Stable CT scan of the brain. Pradeep Rodriguez MD Chest Tube Insertion 3/17/17 0000 Signed Impressions: Service Date/Time: Tuesday, November 08, 2016 12:46 - CONCLUSION: Uncomplicated right chest tube placement as above. 1500 cc of fluid removed and sent for culture. Post CT scan reveals a large. pleural rind . The right lung may well not reexpanded. A.m. chest x-ray is pending. Cultures pending. Kun Mendoza MD FACR CT Angiography 11/07/16 0000 Signed Impressions: Service Date/Time: October 20:40 - CONCLUSION: 1. No pulmonary embolus. 2. Marked cardiac enlargement, especially the atria. 3. Bilateral effusions and atelectasis about the same on the left and considerably worse on the right. Right pneumothorax seen previously has resolved. Dhruv Foster MD Objective Remarks GENERAL: Elderly patient in no apparent distress. SKIN: Dry skin over the feet. Peripheral IV in each foot. HEAD: Atraumatic. Normocephalic. CARDIOVASCULAR: Mildly tachycardic at 92 bpm with irregular rhythm. RESPIRATORY: No accessory muscle use. Coarse breath sounds. On ventilator. GASTROINTESTINAL: PEG tube in place. Abdomen diffusely tender but no guarding. MUSCULOSKELETAL: Foam boots over both feet. NEUROLOGICAL: Awake and alert. Tries to speak but cannot. Procedures Endotracheal intubation 11/08/16 central line Right IJ 11/08/16 IR drainage/chest tube placement, right pleural effusion, 1500 cc removed Extubated 11/18/16. Left thoracentesis 11/17/16, pigtail chest tube 11/19/16 Reintubated 11/25/16. Percutaneous tracheostomy 12/02/16. PEG tube placement 12/02/16. Urinary Catheter: Yes Assessment to: Continue Vital insert reason: Prolonged Immobilization Date of Insertion: Nov 08, 2016 Vascular Central Line Catheter: No A/P Problem List: (1) Acute respiratory failure with hypoxia and hypercapnia ICD Code: J96.01 Status: Acute (2) Pleural effusion, right ICD Code: J90 Status: Acute (3) Dyspnea ICD Code: R06.00 Status: Acute (4) Pulmonary artery hypertension ICD Code: I27.2 Status: Acute (5) Deep venous thrombosis of both upper extremities ICD Code: I82.623 Status: Acute Assessment and Plan 81 year old male with recurrent pleural effusion in respiratory failure on ventilator with: Metabolic encephalopathy/Agitated delirium/mild dementia/CO2 narcosis/myoclonus: -IV sedation discontinued 12/05. Use Ativan PRN for breakthrough seizures / myoclonus -EEG negative 11/10/15, 11/11/16 (moderate to severe encephalopathy, no seizure) -CT of the brain 11/09 without acute abnormality. 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 -Continue Keppra 500 mg by mouth twice a day Acute hypercarbic and hypoxic respiratory failure/Recurrent right pleural effusion/COPD exacerbation: -s/p chest tube placement/drainage R pleural effusion -Moderate left pneumothorax-resolved -Small right pneumothorax-resolved -S/p thoracentesis for large hemorrhagic left pleural effusion -Currently with tracheostomy on ventilator. Continue with vent support keep oxygen sat >92% -Bronchodilators, pulm toilet, trach care -Continue prednisone per Dr. Rooney HCAP: -Staph aureus in sputum 11/12 and 11/26 -Bronchial washings 12/02 with staph aureus and pseudo fluorescens/[place] -11/26 Sputum cx : Staph Aureus -S/p Cefepime and Zithromax 11/08-11/13, Rocephin 11/15-11/18, and resumption Rocephin for MSSA pneumonia on 11/26- 12/05 -On Tobramycin nebs till 12/12 per ID Micrococcus bacteremia: 08/28, not clinically significant per ID. -Monitor for fevers, leukocytosis -WBC stable at 12.8, elevation likely attributed to prednisone use. Severe pulmonary hypertension/A.Fib RVR/HTN/TR: -Echo 11/19/16 with EF 50-55%, moderate to severe to respiratory regurgitation and PA peak pressure of 47 mmHg previously 85 on 10/08/16 Echo. -Continue Captopril and Atenolol -Monitor HR and BP; keep MAP > 65mmHg DVT: 12/04 B/L Doppler US performed. Nonocclusive thrombus in right jugular and brachial vein and occlusive thrombus in right cephalic vein midarm to wrist. Nonocclusive thrombus in left axillary and brachial veins and superficial thrombus in the left cephalic vein throughout the whole arm patchy occlusive and nonocclusive. -On heparin drip; Coumadin resumed on 12/06. Monitor PT/INR. D/c heparin when INR therapeutic. Pharmacy to dose coumadin. INR 1.2 today. Hypernatremia: Improving. Na 146 today. -Monitor renal function -Monitor intake and output -Continue Lasix Acute protein calorie malnutritionsevere -Glucerna 1.5 @ goal rate 60ml/hr, no residuals noted -PEG tube placement- 12/02. Monitor site. -Bowel regimen Elevated LFTs: generally improved, but alkaline phosphatase mildly increased from yesterday. -Continue to monitor -If patient continues to have abdominal pain, consider imaging. Pain is non- specific. Thrombocytopenia: Resolved Anemia: chronic, stable. Hyperglycemia due to critical illness: Resolved -SSI discontinued GI Prophylaxis: Protonix 40 mg IV every 24 hours DVT prophylaxis: see above, on anticoagulation. Written by Denise Sparks PA-C acting as scribe for Dr. Reyez on 12/12/16 at 0743. This note was transcribed by scribe Denise Sparks PA-C. I, Dr. Poli Reyez personally performed the history, physical exam, and medical decision making; and confirmed the accuracy of the information in the transcribed note. Authenticated by Dr. Poli Reyez on 12/12/16 at 15:02. Discharge Planning Palliative care is following. [facility] however awaiting clearance by [employer]. Problem Qualifiers (1) Dyspnea: Qualified Code: R06.02 - Shortness of breath Denise Sparks Dec 12, 2016 09:13 Poli Reyez MD Dec 12, 2016 15:02
[2016-12-12] MEDS: levETIRAcetam 500 MG/5 ML UDC PO SCH ×2 (09:16→20:17)
[2016-12-12] MEDS: ATENOLOL 50 MG TAB PO SCH ×2 (09:17→20:18)
[2016-12-12] MEDS: hydrALAZINE HCL 20 MG/ML VIAL IV PUSH PRN (09:17)
[2016-12-12] MEDS: FUROSEMIDE 20 MG TAB PO SCH (09:17)
[2016-12-12] MEDS: predniSONE 10 MG TAB PO SCH ×2 (09:17→20:18)
[2016-12-12] MEDS: HEPARIN-D5W INJ 250 ML IV SCH (09:33)
[2016-12-12] MEDS: WARFARIN SOD 10 MG TAB PO SCH (14:59)
--- NOTE | 2016-12-12 20:18 | HHI.PR ---
Subjective Remarks Patient remains intubated and sedation. had Trach On Heparin drip for DVT Upper ext Occ follows commands Objective Vital Signs Vital Signs Date Time Temp Pulse Resp B/P Pulse Ox O2 Delivery O2 Flow Rate FiO2 12/12/16 18:00 87 12/12/16 17:08 99 45 12/12/16 16:00 86 12/12/16 16:00 98.8 77 20 139/54 98 12/12/16 14:41 95 50 12/12/16 14:00 80 12/12/16 12:00 93 12/12/16 12:00 98.8 93 25 155/55 93 12/12/16 12:00 40 12/12/16 10:51 91 50 12/12/16 10:00 95 12/12/16 10:00 90 40 12/12/16 08:00 98.9 95 23 149/58 96 12/12/16 08:00 95 12/12/16 08:00 40 12/12/16 07:39 97 35 12/12/16 06:02 84 24 180/63 95 12/12/16 05:02 84 25 163/43 98 12/12/16 04:05 96 40 12/12/16 04:04 97.8 82 21 143/48 94 12/12/16 03:02 74 22 124/31 96 12/12/16 02:02 82 25 141/73 97 12/12/16 01:31 40 12/12/16 01:30 96 40 12/12/16 01:02 86 24 148/52 95 12/12/16 00:02 97.9 86 22 158/55 95 12/12/16 00:00 40 12/11/16 23:01 25 30 156/68 94 12/11/16 22:01 90 23 137/47 98 12/11/16 21:55 96 40 12/11/16 21:01 96 22 159/63 94 I/O 12/11/16 12/11/16 12/11/16 12/12/16 12/12/16 12/12/16 07:00 15:00 23:00 07:00 15:00 23:00 Intake Total 688 ml 888 ml 417 ml 637 ml 643 ml Output Total 475 ml 920 ml 450 ml 400 ml 600 ml Balance 213 ml -32 ml -33 ml 237 ml 43 ml IV Total 93 ml 148 ml 69 ml 99 ml 84 ml Tube Feeding 495 ml 740 ml 348 ml 538 ml 559 ml Other 100 ml Output Urine Total 475 ml 920 ml 450 ml 400 ml 600 ml Stool Total 0 ml Result Diagram: 12/12/1642012/12/16420 Objective Remarks GENERAL: Patient is 81 yo intubated and sedated. SKIN: Warm and dry. HEAD: Normocephalic. EYES: No scleral icterus. No injection or drainage. NECK: Supple, trachea midline. No JVD or lymphadenopathy. has Trach CARDIOVASCULAR: Regular rate and rhythm without murmurs, gallops, or rubs. RESPIRATORY: Breath sounds equal bilaterally. No accessory muscle use. Peg tube GASTROINTESTINAL: Abdomen soft, non-tender, nondistended. MUSCULOSKELETAL: No cyanosis, or edema. Neuro: Intubated, sedated A/P Assessment and Plan Acute hypercarbic and hypoxic respiratory failure-extubated - Reintubated 11/25 Healthcare associated pneumonia COPD exacerbation DVT LUE Afib HTN Plan Continue with vent support keep sat >92% Bronchodilators, ICU vent bundle. Continue with Prednisone 10mg BID Continue with Heparin drip for DVT LUE. Ash Valenzuela MD Dec 12, 2016 20:18
[2016-12-12] MEDS: LABETALOL HCL 100 MG/20 ML VIAL IV PUSH PRN (23:07)
[2016-12-13] VITALS (24 sets, daily range): BP systolic 153–181; BP diastolic 52–76; PULSE 72–100; RESP 20–68; TEMP 97.7–99.1; O2SAT 92–100
[2016-12-13] MEDS: HALOPERIDOL LACTATE 5 MG/ML AMP IV PRN (01:07)
[2016-12-13] MEDS: hydrALAZINE HCL 20 MG/ML VIAL IV PUSH PRN (01:07)
[2016-12-13] MEDS: HEPARIN-D5W INJ 250 ML IV SCH ×2 (01:09→21:29)
[2016-12-13] MEDS: RESP: ALBUTEROL 2.5 MG/IPRATROPIUM 0.5 MG NEB (SCH) NEB ×4 (03:54→22:19)
[2016-12-13] MEDS: CAPTOPRIL 25 MG TAB PO SCH ×3 (05:35→22:27)
[2016-12-13 06:16] LABS: APTT (PATIENT) 73.2 SEC (24.3-30.1)
[2016-12-13 06:39] LABS: INTERNATIONAL NORMALIZED RATIO 1.4 RATIO; PROTHROMBIN TIME - PATIENT 15.3 SEC (9.8-11.6)
[2016-12-13] MEDS: levETIRAcetam 500 MG/5 ML UDC PO SCH ×2 (08:50→20:06)
[2016-12-13] MEDS: SENNOSIDES SYRUP 8.8 MG/5 ML CUP PO SCH (08:50)
[2016-12-13] MEDS: POLYETHYLENE GLYCOL 17 GM PKG PO SCH (08:50)
[2016-12-13] MEDS: FUROSEMIDE 20 MG TAB PO SCH (08:50)
[2016-12-13] MEDS: DOCUSATE SODIUM 100 MG/10 ML UDC PO SCH ×2 (08:51→20:06)
[2016-12-13] MEDS: ATENOLOL 50 MG TAB PO SCH ×2 (08:51→20:06)
[2016-12-13] MEDS: predniSONE 10 MG TAB PO SCH ×2 (08:51→20:06)
[2016-12-13] MEDS: SODIUM CHLORIDE FLUSH BID IV FLUSH SCH ×2 (08:51→22:27)
[2016-12-13] MEDS: CHLORHEXIDINE 0.12% (ORAL KIT) 15 ML CUP MT SCH ×2 (08:54→20:06)
--- NOTE | 2016-12-13 10:15 | HHI.PR ---
Subjective Remarks Follow up for respiratory failure, on ventilator. Objective Vitals Vital Signs Date Time Temp Pulse Resp B/P Pulse Ox O2 Delivery O2 Flow Rate FiO2 12/13/16 08:00 98.7 84 20 159/62 96 12/13/16 07:53 98 40 12/13/16 06:00 100 12/13/16 05:02 84 21 173/69 99 12/13/16 05:00 82 55 99 12/13/16 04:02 90 55 161/60 96 12/13/16 04:00 45 12/13/16 04:00 94 40 12/13/16 04:00 89 12/13/16 04:00 97.7 12/13/16 04:00 92 43 97 12/13/16 04:00 22 12/13/16 02:00 89 12/13/16 01:00 98.6 12/13/16 01:00 94 40 12/13/16 01:00 87 21 181/65 96 12/13/16 00:02 78 61 163/62 97 12/13/16 00:00 45 12/13/16 00:00 87 12/12/16 23:02 78 50 171/61 95 12/12/16 22:05 99 40 12/12/16 22:02 72 50 99 12/12/16 22:00 82 12/12/16 21:02 74 26 162/63 98 12/12/16 21:00 74 27 99 12/12/16 21:00 74 27 99 12/12/16 20:10 95 45 12/12/16 20:02 86 31 182/73 97 12/12/16 20:02 86 31 182/73 97 12/12/16 20:00 86 28 100 12/12/16 20:00 98.8 86 28 100 12/12/16 20:00 85 12/12/16 20:00 45 12/12/16 19:02 74 43 159/57 100 12/12/16 19:02 74 43 159/57 100 12/12/16 19:00 74 57 100 12/12/16 19:00 98.8 74 57 100 12/12/16 18:02 78 44 161/58 99 12/12/16 18:00 87 12/12/16 18:00 78 40 99 12/12/16 17:08 99 45 12/12/16 16:00 86 12/12/16 16:00 98.8 77 20 139/54 98 12/12/16 14:41 95 50 12/12/16 14:00 80 12/12/16 12:00 93 12/12/16 12:00 98.8 93 25 155/55 93 12/12/16 12:00 40 12/12/16 10:51 91 50 I/O 12/12/16 12/12/16 12/12/16 12/13/16 12/13/16 12/13/16 07:00 15:00 23:00 07:00 15:00 23:00 Intake Total 637 ml 643 ml 786 ml 544 ml Output Total 400 ml 600 ml 300 ml 375 ml Balance 237 ml 43 ml 486 ml 169 ml IV Total 99 ml 84 ml 288 ml 83 ml Tube Feeding 538 ml 559 ml 498 ml 461 ml Output Urine Total 400 ml 600 ml 300 ml 375 ml Stool Total 0 ml Result Diagram: 12/12/1642012/12/16420 Objective Remarks GENERAL: Elderly patient in no apparent distress. HEAD: Atraumatic. Normocephalic. CARDIOVASCULAR: HR 82 bpm with irregular rhythm. RESPIRATORY: No accessory muscle use. Coarse breath sounds. On ventilator. GASTROINTESTINAL: Abdomen soft, non-tender, non-distended. MUSCULOSKELETAL: Foam boots over both feet. NEUROLOGICAL: Awake and alert. Responds to voice by opening eyes briefly. Procedures Endotracheal intubation 11/08/16 central line Right IJ 11/08/16 IR drainage/chest tube placement, right pleural effusion, 1500 cc removed Extubated 11/18/16. Left thoracentesis 11/17/16, pigtail chest tube 11/19/16 Reintubated 11/25/16. Percutaneous tracheostomy 12/02/16. PEG tube placement 12/02/16. Urinary Catheter: Yes Assessment to: Continue Vital insert reason: Prolonged Immobilization Date of Insertion: Nov 08, 2016 Vascular Central Line Catheter: No A/P Problem List: (1) Acute respiratory failure with hypoxia and hypercapnia ICD Code: J96.01 Status: Acute (2) Pleural effusion, right ICD Code: J90 Status: Acute (3) Dyspnea ICD Code: R06.00 Status: Acute (4) Pulmonary artery hypertension ICD Code: I27.2 Status: Acute (5) Deep venous thrombosis of both upper extremities ICD Code: I82.623 Status: Acute Assessment and Plan 81 year old male with recurrent pleural effusion in respiratory failure on ventilator with: Metabolic encephalopathy/Agitated delirium/mild dementia/CO2 narcosis/myoclonus: -IV sedation discontinued 12/05. Use Ativan PRN for breakthrough seizures / myoclonus -EEG negative 11/10/15, 11/11/16 (moderate to severe encephalopathy, no seizure) -CT of the brain 11/09 without acute abnormality. 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 -Continue Keppra 500 mg by mouth twice a day Acute hypercarbic and hypoxic respiratory failure/Recurrent right pleural effusion/COPD exacerbation: -s/p chest tube placement/drainage R pleural effusion -Moderate left pneumothorax-resolved -Small right pneumothorax-resolved -S/p thoracentesis for large hemorrhagic left pleural effusion -Currently with tracheostomy on ventilator. Continue with vent support keep oxygen sat >92% -Bronchodilators, pulm toilet, trach care -Continue prednisone 10 mg po bid -Pulmonology following HCAP: -Staph aureus in sputum 11/12 and 11/26 -Bronchial washings 12/02 with staph aureus and pseudo fluorescens/[place] -11/26 Sputum cx : Staph Aureus -S/p Cefepime and Zithromax 11/08-11/13, Rocephin 11/15-11/18, and resumption Rocephin for MSSA pneumonia on 11/26- 12/05 -On Tobramycin nebs till 12/12 per ID Micrococcus bacteremia: 08/28, not clinically significant per ID. -Monitor for fevers, leukocytosis -WBC stable at 12.8, elevation likely attributed to prednisone use. Repeat am CBC. Severe pulmonary hypertension/A.Fib RVR/HTN/TR: -Echo 11/19/16 with EF 50-55%, moderate to severe to respiratory regurgitation and PA peak pressure of 47 mmHg previously 85 on 10/08/16 Echo. -Continue Captopril and Atenolol -Monitor HR and BP; keep MAP > 65mmHg -BP has been elevated. Will add amlodipine 5 mg daily and increase as needed. -Continue hydralazine and labetalol as needed as indicated. DVT: 12/04 B/L Doppler US performed. Nonocclusive thrombus in right jugular and brachial vein and occlusive thrombus in right cephalic vein midarm to wrist. Nonocclusive thrombus in left axillary and brachial veins and superficial thrombus in the left cephalic vein throughout the whole arm patchy occlusive and nonocclusive. -On heparin drip; Coumadin resumed on 12/06. Monitor PT/INR. D/c heparin when INR therapeutic. Pharmacy to dose coumadin. INR 1.4 today. Hypernatremia: Improving. Na 146. -Monitor renal function -Monitor intake and output -Continue Lasix -Repeat am BMP. Acute protein calorie malnutritionsevere -Glucerna 1.5 @ goal rate 60ml/hr, no residuals noted -PEG tube placement- 12/02. Monitor site. -Bowel regimen Elevated LFTs: generally improved, but alkaline phosphatase mildly increased from yesterday. -Continue to monitor -If patient continues to have abdominal pain, consider imaging. Pain is non- specific. Thrombocytopenia: Resolved Anemia: chronic, stable. Hyperglycemia due to critical illness: Resolved -SSI discontinued GI Prophylaxis: Protonix 40 mg IV every 24 hours DVT prophylaxis: see above, on anticoagulation. Written by Denise Sparks PA-C acting as scribe for Dr. Reyez on 12/13/16 at 0935. This note was transcribed by scribe Denise Sparks PA-C. I, Dr. Poli Reyez personally performed the history, physical exam, and medical decision making; and confirmed the accuracy of the information in the transcribed note. Authenticated by Dr. Poli Reyez on 12/13/16 at 13:13. Discharge Planning Palliative care is following. [facility] however awaiting clearance by [employer]. Problem Qualifiers (1) Dyspnea: Qualified Code: R06.02 - Shortness of breath Denise Sparks Dec 13, 2016 10:14 Poli Reyez MD Dec 13, 2016 13:13
[2016-12-13] MEDS ORDERED: amLODIPine BESYLATE 5 MG TAB PO ONE (12:00)
[2016-12-13] MEDS: WARFARIN SOD 10 MG TAB PO SCH (16:06)
--- NOTE | 2016-12-13 19:04 | HHI.PR ---
Subjective Remarks Patient remains intubated and sedation. had Trach On Heparin drip for DVT Upper ext Alert, awake, follows commands and greets Objective Vital Signs Vital Signs Date Time Temp Pulse Resp B/P Pulse Ox O2 Delivery O2 Flow Rate FiO2 12/13/16 18:00 86 12/13/16 16:55 97 40 12/13/16 16:00 82 12/13/16 16:00 40 12/13/16 16:00 98.1 90 31 181/76 96 12/13/16 14:00 78 12/13/16 13:57 93 40 12/13/16 13:00 80 68 153/53 92 12/13/16 12:00 40 12/13/16 12:00 72 51 167/62 100 12/13/16 12:00 80 12/13/16 10:50 98 40 12/13/16 10:00 100 12/13/16 08:00 100 12/13/16 08:00 40 12/13/16 08:00 98.7 84 20 159/62 96 12/13/16 07:53 98 40 12/13/16 06:00 100 12/13/16 05:02 84 21 173/69 99 12/13/16 05:00 82 55 99 12/13/16 04:02 90 55 161/60 96 12/13/16 04:00 45 12/13/16 04:00 94 40 12/13/16 04:00 89 12/13/16 04:00 97.7 12/13/16 04:00 92 43 97 12/13/16 04:00 22 12/13/16 02:00 89 12/13/16 01:00 98.6 12/13/16 01:00 94 40 12/13/16 01:00 87 21 181/65 96 12/13/16 00:02 78 61 163/62 97 12/13/16 00:00 45 12/13/16 00:00 87 12/12/16 23:02 78 50 171/61 95 12/12/16 22:05 99 40 12/12/16 22:02 72 50 99 12/12/16 22:00 82 12/12/16 21:02 74 26 162/63 98 12/12/16 21:00 74 27 99 12/12/16 21:00 74 27 99 12/12/16 20:10 95 45 12/12/16 20:02 86 31 182/73 97 12/12/16 20:02 86 31 182/73 97 12/12/16 20:00 86 28 100 12/12/16 20:00 98.8 86 28 100 12/12/16 20:00 85 12/12/16 20:00 45 I/O 12/12/16 12/12/16 12/12/16 12/13/16 12/13/16 12/13/16 07:00 15:00 23:00 07:00 15:00 23:00 Intake Total 637 ml 643 ml 786 ml 544 ml 890 ml Output Total 400 ml 600 ml 300 ml 375 ml 425 ml Balance 237 ml 43 ml 486 ml 169 ml 465 ml IV Total 99 ml 84 ml 288 ml 83 ml 115 ml Tube Feeding 538 ml 559 ml 498 ml 461 ml 655 ml Other 120 ml Output Urine Total 400 ml 600 ml 300 ml 375 ml 425 ml Stool Total 0 ml # Bowel Movements 0 Result Diagram: 12/12/16 04212/12/16 042 Objective Remarks GENERAL: Patient is 81 yo intubated and sedated. SKIN: Warm and dry. HEAD: Normocephalic. EYES: No scleral icterus. No injection or drainage. NECK: Supple, trachea midline. No JVD or lymphadenopathy. has Trach CARDIOVASCULAR: Regular rate and rhythm without murmurs, gallops, or rubs. RESPIRATORY: Breath sounds equal bilaterally. No accessory muscle use. Peg tube GASTROINTESTINAL: Abdomen soft, non-tender, nondistended. MUSCULOSKELETAL: No cyanosis, or edema. Neuro: Intubated, sedated A/P Assessment and Plan Acute hypercarbic and hypoxic respiratory failure-extubated - Reintubated 11/25 Healthcare associated pneumonia COPD exacerbation DVT LUE Afib HTN Plan Continue with vent support keep sat >92% Bronchodilators, ICU vent bundle. Continue with Prednisone 10mg BID Continue with Heparin drip for DVT LUE. remove trach sutures Ash Valenzuela MD Dec 13, 2016 19:04
[2016-12-14] VITALS (35 sets, daily range): BP systolic 114–169; BP diastolic 48–76; PULSE 66–92; RESP 15–65; TEMP 98.2–98.7; O2SAT 90–100
[2016-12-14] MEDS: RESP: ALBUTEROL 2.5 MG/IPRATROPIUM 0.5 MG NEB (SCH) NEB ×4 (03:39→21:22)
[2016-12-14] MEDS: CAPTOPRIL 25 MG TAB PO SCH ×3 (05:07→22:46)
[2016-12-14 06:26] LABS: AUTOMATED NEUTROPHIL # 9.7 TH/MM3 (1.8-7.7); BASOPHIL # 0.5 TH/MM3 (0-0.2); BASOPHIL % 3.9 % (0.0-2.0); EOSINOPHIL % 0.4 % (0.0-4.0); HEMATOCRIT 31.3 % (39.0-51.0); LYMPH % 5.6 % (9.0-44.0); LYMPHOCYTE # 0.7 TH/MM3 (1.0-4.8); MEAN CELL VOLUME 100.4 FL (80.0-100.0); MEAN CORPUSCULAR HEMOGLOBIN 32.4 PG (27.0-34.0); MEAN CORPUSCULAR HGB CONC 32.3 % (32.0-36.0); NEUT % 82.1 % (16.0-70.0); PLATELET COUNT 228 TH/MM3 (150-450); RED BLOOD COUNT 3.12 MIL/MM3 (4.50-5.90); RED CELL DISTRIBUTION WIDTH 15.3 % (11.6-17.2); WHITE BLOOD COUNT 11.9 TH/MM3 (4.0-11.0)
[2016-12-14 06:34] LABS: HEMO FLAGS AUTO DIFF
[2016-12-14 06:39] LABS: POTASSIUM 4.5 MEQ/L (3.5-5.1)
[2016-12-14 06:48] LABS: APTT (PATIENT) 86.4 SEC (24.3-30.1); INTERNATIONAL NORMALIZED RATIO 1.7 RATIO; PROTHROMBIN TIME - PATIENT 19.4 SEC (9.8-11.6)
[2016-12-14 06:56] LABS: SCAN/DIFF AUTO DIFF CONFIRMED
[2016-12-14] MEDS ORDERED: DEXTROSE 5% IN WATE 1000ML INJ 1,000 ML IV SCH (07:45)
[2016-12-14] MEDS: SODIUM CHLORIDE FLUSH BID IV FLUSH SCH ×2 (09:00→20:40)
[2016-12-14] MEDS: levETIRAcetam 500 MG/5 ML UDC PO SCH ×2 (09:30→20:40)
[2016-12-14] MEDS: CHLORHEXIDINE 0.12% (ORAL KIT) 15 ML CUP MT SCH ×2 (09:30→20:41)
[2016-12-14] MEDS: DOCUSATE SODIUM 100 MG/10 ML UDC PO SCH ×2 (09:30→20:40)
[2016-12-14] MEDS: ATENOLOL 50 MG TAB PO SCH ×2 (09:31→20:40)
[2016-12-14] MEDS: FUROSEMIDE 20 MG TAB PO SCH (09:31)
[2016-12-14] MEDS: predniSONE 10 MG TAB PO SCH ×2 (09:31→20:40)
[2016-12-14] MEDS: amLODIPine BESYLATE 5 MG TAB PO SCH (09:31)
[2016-12-14] MEDS: SENNOSIDES SYRUP 8.8 MG/5 ML CUP PO SCH (09:31)
[2016-12-14] MEDS: POLYETHYLENE GLYCOL 17 GM PKG PO SCH (09:31)
--- NOTE | 2016-12-14 11:31 | HHI.PR ---
Subjective Remarks Follow up for respiratory failure, on ventilator. Objective Vitals Vital Signs Date Time Temp Pulse Resp B/P Pulse Ox O2 Delivery O2 Flow Rate FiO2 12/14/16 11:15 40 12/14/16 11:15 95 40 12/14/16 11:01 80 23 118/50 92 12/14/16 10:01 82 32 155/62 100 12/14/16 10:00 78 12/14/16 09:01 88 29 144/64 90 12/14/16 08:03 92 40 12/14/16 08:01 98.4 92 26 155/70 93 12/14/16 08:00 79 12/14/16 08:00 40 12/14/16 07:01 84 65 117/48 91 12/14/16 06:00 90 12/14/16 04:18 84 32 169/60 100 12/14/16 04:00 40 12/14/16 04:00 84 12/14/16 03:45 95 40 12/14/16 02:00 81 12/14/16 01:15 96 40 12/14/16 00:00 74 12/14/16 00:00 40 12/14/16 00:00 98.5 74 20 136/53 99 12/13/16 22:25 98 40 12/13/16 22:00 76 12/13/16 20:00 99.1 86 26 154/52 94 12/13/16 20:00 86 12/13/16 20:00 40 12/13/16 19:45 99 40 12/13/16 18:00 86 12/13/16 16:55 97 40 12/13/16 16:00 82 12/13/16 16:00 40 12/13/16 16:00 98.1 90 31 181/76 96 12/13/16 14:00 78 12/13/16 13:57 93 40 12/13/16 13:00 80 68 153/53 92 12/13/16 12:00 40 12/13/16 12:00 72 51 167/62 100 12/13/16 12:00 80 I/O 12/13/16 12/13/16 12/13/16 12/14/16 12/14/16 12/14/16 07:00 15:00 23:00 07:00 15:00 23:00 Intake Total 544 ml 890 ml 576 ml 684 ml Output Total 375 ml 425 ml 300 ml 350 ml Balance 169 ml 465 ml 276 ml 334 ml IV Total 83 ml 115 ml 96 ml 84 ml Tube Feeding 461 ml 655 ml 480 ml 480 ml Other 120 ml 120 ml Output Urine Total 375 ml 425 ml 300 ml 350 ml # Bowel Movements 0 0 0 Result Diagram: 12/14/1661112/14/16611 Objective Remarks GENERAL: Elderly patient in no apparent distress. HEAD: Atraumatic. Normocephalic. CARDIOVASCULAR: HR 88 bpm with irregular rhythm. RESPIRATORY: No accessory muscle use. Coarse breath sounds. On ventilator. GASTROINTESTINAL: Abdomen soft, non-tender, non-distended. NEUROLOGICAL: Opens eyes, but unresponsive. Procedures Endotracheal intubation 11/08/16 central line Right IJ 11/08/16 IR drainage/chest tube placement, right pleural effusion, 1500 cc removed Extubated 11/18/16. Left thoracentesis 11/17/16, pigtail chest tube 11/19/16 Reintubated 11/25/16. Percutaneous tracheostomy 12/02/16. PEG tube placement 12/02/16. Urinary Catheter: Yes Assessment to: Continue Vital insert reason: Prolonged Immobilization Date of Insertion: Nov 08, 2016 Vascular Central Line Catheter: No A/P Problem List: (1) Acute respiratory failure with hypoxia and hypercapnia ICD Code: J96.01 Status: Acute (2) Pleural effusion, right ICD Code: J90 Status: Acute (3) Dyspnea ICD Code: R06.00 Status: Acute (4) Pulmonary artery hypertension ICD Code: I27.2 Status: Acute (5) Deep venous thrombosis of both upper extremities ICD Code: I82.623 Status: Acute Assessment and Plan 81 year old male with recurrent pleural effusion in respiratory failure on ventilator with: Metabolic encephalopathy/Agitated delirium/mild dementia/CO2 narcosis/myoclonus: -IV sedation discontinued 12/05. Use Ativan PRN for breakthrough seizures / myoclonus -EEG negative 11/10/15, 11/11/16 (moderate to severe encephalopathy, no seizure) -CT of the brain 11/09 without acute abnormality. 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 -Continue Keppra 500 mg by mouth twice a day Acute hypercarbic and hypoxic respiratory failure/Recurrent right pleural effusion/COPD exacerbation: -s/p chest tube placement/drainage R pleural effusion -Moderate left pneumothorax-resolved -Small right pneumothorax-resolved -S/p thoracentesis for large hemorrhagic left pleural effusion -Currently with tracheostomy on ventilator. Continue with vent support keep oxygen sat >92% -Bronchodilators, pulm toilet, trach care -Continue prednisone 10 mg po bid -Pulmonology following -WBC improved to 11.9 today. Likely will remain elevated to some extent due to steroid use. HCAP: -Staph aureus in sputum 11/12 and 11/26 -Bronchial washings 12/02 with staph aureus and pseudo fluorescens/[place] -11/26 Sputum cx : Staph Aureus -S/p Cefepime and Zithromax 11/08-11/13, Rocephin 11/15-11/18, and resumption Rocephin for MSSA pneumonia on 11/26- 12/05 -On Tobramycin nebs till 12/12 per ID Micrococcus bacteremia: 08/28, not clinically significant per ID. -Monitor for fevers, leukocytosis Severe pulmonary hypertension/A.Fib RVR/HTN/TR: -Echo 11/19/16 with EF 50-55%, moderate to severe to respiratory regurgitation and PA peak pressure of 47 mmHg previously 85 on 10/08/16 Echo. -Continue Captopril and Atenolol. Amlodipine 5 mg daily started on 12/14. BP improved at 0700 this morning, but fluctuating throughout the day. Will continue to monitor. -keep MAP > 65mmHg -Continue hydralazine and labetalol as needed as indicated. DVT: 12/04 B/L Doppler US performed. Nonocclusive thrombus in right jugular and brachial vein and occlusive thrombus in right cephalic vein midarm to wrist. Nonocclusive thrombus in left axillary and brachial veins and superficial thrombus in the left cephalic vein throughout the whole arm patchy occlusive and nonocclusive. -On heparin drip; Coumadin resumed on 12/06. Monitor PT/INR. D/c heparin when INR therapeutic. Pharmacy to dose coumadin. INR 1.7 today. Hypernatremia: Worse. Na increased to 148. -Monitor renal function -Monitor intake and output -Continue Lasix -Start patient on D5W at 75 mL/hr. -Repeat am BMP. Pre-renal azotemia: BUN elevated at 39. Cr normal. -Monitor BMP Acute protein calorie malnutritionsevere -Glucerna 1.5 @ goal rate 60ml/hr, no residuals noted -PEG tube placement- 12/02. Monitor site. -Bowel regimen Elevated LFTs: generally improved, but alkaline phosphatase mildly increased from yesterday. -Continue to monitor -If patient continues to have abdominal pain, consider imaging. Pain is non- specific. Thrombocytopenia: Resolved Anemia: chronic, stable. Hyperglycemia due to critical illness: Resolved -SSI discontinued GI Prophylaxis: Protonix 40 mg IV every 24 hours DVT prophylaxis: see above, on anticoagulation. Written by Denise Sparks PA-C acting as scribe for Dr. Reyez on 12/14/16 at 0758. This note was transcribed by scribe Denise Sparks PA-C. I, Dr. Poli Reyez personally performed the history, physical exam, and medical decision making; and confirmed the accuracy of the information in the transcribed note. Authenticated by Dr. Poli Reyez on 12/15/16 at 07:21. Discharge Planning Palliative care is following. [facility] however awaiting clearance by [employer]. Problem Qualifiers (1) Dyspnea: Qualified Code: R06.02 - Shortness of breath Denise Sparks Dec 14, 2016 11:31 Poli Reyez MD Dec 15, 2016 07:21
[2016-12-14] MEDS: HEPARIN-D5W INJ 250 ML IV SCH (14:53)
[2016-12-14] MEDS: MUPIROCIN 2% OINT 22 GM TUBE TOPICAL SCH ×2 (15:16→20:55)
[2016-12-14] MEDS: WARFARIN SOD 10 MG TAB PO SCH (16:57)
[2016-12-15] VITALS (41 sets, daily range): BP systolic 133–199; BP diastolic 55–93; PULSE 66–90; RESP 18–77; TEMP 97.6–98.4; O2SAT 93–100
[2016-12-15] MEDS: RESP: ALBUTEROL 2.5 MG/IPRATROPIUM 0.5 MG NEB (SCH) NEB ×3 (03:27→14:40)
[2016-12-15] MEDS: CAPTOPRIL 25 MG TAB PO SCH ×4 (05:19→21:06)
[2016-12-15 06:45] LABS: POTASSIUM 4.6 MEQ/L (3.5-5.1)
[2016-12-15 06:48] LABS: BICARBONATE 35.4 MEQ/L (21.0-32.0)
[2016-12-15 07:14] LABS: PROTHROMBIN TIME - PATIENT 22.3 SEC (9.8-11.6)
[2016-12-15 07:15] LABS: APTT (PATIENT) 114.4 SEC (24.3-30.1)
[2016-12-15] MEDS: DOCUSATE SODIUM 100 MG/10 ML UDC PO SCH ×2 (09:16→21:00)
[2016-12-15] MEDS: predniSONE 10 MG TAB PO SCH ×2 (09:16→21:05)
[2016-12-15] MEDS: ATENOLOL 50 MG TAB PO SCH ×2 (09:16→21:06)
[2016-12-15] MEDS: FUROSEMIDE 20 MG TAB PO SCH (09:16)
[2016-12-15] MEDS: SENNOSIDES SYRUP 8.8 MG/5 ML CUP PO SCH (09:16)
[2016-12-15] MEDS: POLYETHYLENE GLYCOL 17 GM PKG PO SCH (09:16)
[2016-12-15] MEDS: levETIRAcetam 500 MG/5 ML UDC PO SCH ×2 (09:16→21:06)
[2016-12-15] MEDS: MUPIROCIN 2% OINT 22 GM TUBE TOPICAL SCH ×2 (09:17→21:06)
[2016-12-15] MEDS: amLODIPine BESYLATE 5 MG TAB PO SCH (09:17)
[2016-12-15] MEDS: CHLORHEXIDINE 0.12% (ORAL KIT) 15 ML CUP MT SCH ×2 (09:19→21:07)
[2016-12-15] MEDS: SODIUM CHLORIDE FLUSH BID IV FLUSH SCH ×2 (09:20→21:00)
--- NOTE | 2016-12-15 10:48 | HHI.PR ---
Subjective Remarks Follow-up respiratory failure, hypernatremia. No events reported by nursing. Patient is more alert today. Objective Vitals Vital Signs Date Time Temp Pulse Resp B/P Pulse Ox O2 Delivery O2 Flow Rate FiO2 12/15/16 08:34 100 40 12/15/16 08:34 40 12/15/16 07:00 76 44 159/60 100 12/15/16 06:01 80 20 136/59 94 12/15/16 06:00 74 12/15/16 05:07 99 40 12/15/16 05:01 76 20 155/60 98 12/15/16 04:01 97.6 74 20 160/61 100 12/15/16 04:00 40 12/15/16 04:00 74 12/15/16 03:01 78 22 164/63 100 12/15/16 02:01 76 22 152/59 94 12/15/16 02:00 76 12/15/16 01:01 68 20 167/65 100 12/15/16 00:49 100 40 12/15/16 00:01 98.0 74 18 146/55 96 12/15/16 00:00 40 12/15/16 00:00 74 12/14/16 23:01 70 20 114/55 96 12/14/16 22:01 66 18 167/55 99 12/14/16 22:00 68 12/14/16 21:57 100 40 12/14/16 21:01 80 20 149/61 96 12/14/16 20:01 98.3 74 22 155/59 99 12/14/16 20:00 40 12/14/16 20:00 81 12/14/16 19:17 100 40 12/14/16 19:01 70 19 144/56 100 12/14/16 18:01 68 12/14/16 18:01 68 19 134/57 98 12/14/16 17:01 72 17 141/52 99 12/14/16 16:00 98.7 78 24 114/52 94 12/14/16 16:00 40 12/14/16 16:00 78 12/14/16 15:47 93 40 12/14/16 15:01 78 30 159/76 96 12/14/16 14:01 78 26 127/51 93 12/14/16 14:00 80 12/14/16 13:01 72 15 147/58 94 12/14/16 12:01 98.2 78 20 126/53 93 12/14/16 12:00 40 12/14/16 12:00 78 12/14/16 11:15 40 12/14/16 11:15 95 40 12/14/16 11:01 80 23 118/50 92 I/O 12/14/16 12/14/16 12/14/16 12/15/16 12/15/16 12/15/16 07:00 15:00 23:00 07:00 15:00 23:00 Intake Total 684 ml 1042 ml 2060 ml Output Total 350 ml 400 ml 650 ml Balance 334 ml 642 ml 1410 ml IV Total 84 ml 416 ml 840 ml Tube Feeding 480 ml 446 ml 1060 ml Other 120 ml 180 ml 160 ml Output Urine Total 350 ml 400 ml 650 ml # Bowel Movements 0 0 0 Result Diagram: 12/14/16 0612 12/15/16 0620 Imaging Last Impressions Chest X-Ray 12/11/16 0000 Signed Impressions: Service Date/Time: Sunday, December 11, 2016 19:31 - CONCLUSION: No pneumothorax following left thoracostomy tube removal. Unchanged cardiomegaly with bilateral pleural effusions and bibasilar infiltrates. Charbel Fuchs Jr., MD Upper Extremity Ultrasound 12/04/16 0000 Signed Impressions: Service Date/Time: Sunday, December 04, 2016 17:25 - CONCLUSION: Bilateral upper extremity DVT as above. Dhruv Foster MD Chest CT 11/20/16 0000 Signed Impressions: Service Date/Time: October 09:37 - CONCLUSION: 1. Left pneumothorax without tension 2. Small loculated effusion medial right base 3. Pericardial effusion as above Jimi Chavez MD Liver Ultrasound 11/17/16 0000 Signed Impressions: Service Date/Time: Thursday, November 17, 2016 15:58 - CONCLUSION: 1. Increased liver echogenicity characteristic of mild fatty infiltration or hepatocellular disease. 2. Trace free fluid in the abdomen. Pleural effusions. Mild gallbladder wall thickening. Chaka Campos MD Brain MRI 11/11/16 0000 Signed Impressions: Service Date/Time: Friday, November 11, 2016 12:53 - CONCLUSION: 1. 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 2. 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 The others would be consistent with punctate, remote areas of hemorrhage suggesting possibility of amyloid. Eitan Mendoza MD Head CT 11/09/16 0000 Signed Impressions: Service Date/Time: Wednesday, November 09, 2016 10:29 - CONCLUSION: Stable CT scan of the brain. Pradeep Rodriguez MD Chest Tube Insertion 11/08/16 0000 Signed Impressions: Service Date/Time: Tuesday, November 08, 2016 12:46 - CONCLUSION: Uncomplicated right chest tube placement as above. 1500 cc of fluid removed and sent for culture. Post CT scan reveals a large. pleural rind . The right lung may well not reexpanded. A.m. chest x-ray is pending. Cultures pending. Kun Mendoza MD FACR CT Angiography 11/07/16 0000 Signed Impressions: Service Date/Time: October 20:40 - CONCLUSION: 1. No pulmonary embolus. 2. Marked cardiac enlargement, especially the atria. 3. Bilateral effusions and atelectasis about the same on the left and considerably worse on the right. Right pneumothorax seen previously has resolved. Dhruv Foster MD Objective Remarks General: Elderly male in no acute distress. On ventilator per tracheostomy. Heart: Regular rate and rhythm. No murmur. Lungs: Coarse breath sounds bilaterally. Rhonchi. Breathing is nonlabored. Abdomen: Soft, nontender, nondistended. Extremities: No lower extremity edema. Venous stasis changes bilaterally. Psych: Alert, nonverbal. Procedures Endotracheal intubation 11/08/16 central line Right IJ 11/08/16 IR drainage/chest tube placement, right pleural effusion, 1500 cc removed Extubated 11/18/16. Left thoracentesis 11/17/16, pigtail chest tube 11/19/16 Reintubated 11/25/16. Percutaneous tracheostomy 12/02/16. PEG tube placement 12/02/16. Assessment to: Continue Vital insert reason: Prolonged Immobilization Date of Insertion: Nov 08, 2016 Vascular Central Line Catheter: No A/P Problem List: (1) Acute respiratory failure with hypoxia and hypercapnia ICD Code: J96.01 Status: Acute (2) Pleural effusion, right ICD Code: J90 Status: Acute (3) Dyspnea ICD Code: R06.00 Status: Acute (4) Pulmonary artery hypertension ICD Code: I27.2 Status: Acute (5) Deep venous thrombosis of both upper extremities ICD Code: I82.623 Status: Acute Assessment and Plan 1. Acute hypercarbic and hypoxic respiratory failure, recurrent right pleural effusion, COPD exacerbation: Status post chest tube placement with drainage of right pleural effusion. Moderate left pneumothorax and small right pneumothorax have both resolved. Status post thoracentesis for large hemorrhagic left pleural effusion. Continue mechanical ventilation via tracheostomy. Management of ventilator by pulmonology. Continue bronchodilators, pulmonary toilet, trach care. Continue prednisone. 2. Metabolic encephalopathy, mild dementia: IV sedation discontinued 12/05/16. Ativan as needed for breakthrough seizures, myoclonus. EEG on 11/11/16 showed moderate to severe encephalopathy. Continue Keppra. 3. Healthcare associated pneumonia: Sputum cultures positive for staph aureus. Completed course of cefepime, Zithromax, Rocephin. Completed course of tobramycin nebulizer. 4. Micrococcus bacteremia: Not clinically significant per infectious disease. Monitor for fevers, leukocytosis. 5. Severe pulmonary hypertension, A. fib with RVR, hypertension: Continue captopril, atenolol, amlodipine. Echocardiogram showed ejection fraction 50-55%. 6. DVT, left upper extremity: Continue heparin drip. INR is 2.0 today. Continue Coumadin. Plan to discontinue heparin drip tomorrow. 7. Hypernatremia: Resolved. Continue IV fluids. 8. Prerenal azotemia: Continue IV fluids. Monitor labs. 9. Severe acute protein calorie malnutrition: Continue tube feeds with Glucerna 1.5 at goal rate 60 miles per hour. PEG tube placed . 10. Elevated LFTs: Improved overall. Alkaline phosphatase remains elevated. 11. Thrombocytopenia: Resolved. 12. Anemia: Chronic, stable. 13. Hyperglycemia of critical illness: Resolved. 14. GI prophylaxis: Protonix. Discharge Planning Palliative care is following. Patient has been accepted by [facility]. We are awaiting insurance approval. Problem Qualifiers (1) Dyspnea: Qualified Code: R06.02 - Shortness of breath Poli Reyez MD Dec 15, 2016 10:48
[2016-12-15 11:32] LABS: APTT (PATIENT) 59.1 SEC (24.3-30.1)
[2016-12-15] MEDS: WARFARIN SOD 10 MG TAB PO SCH (15:02)
[2016-12-15] MEDS: HEPARIN-D5W INJ 250 ML IV SCH (16:25)
[2016-12-15 17:21] LABS: APTT (PATIENT) 65.5 SEC (24.3-30.1)
[2016-12-15] MEDS: hydrALAZINE HCL 20 MG/ML VIAL IV PUSH PRN (22:25)
[2016-12-15] MEDS: HALOPERIDOL LACTATE 5 MG/ML AMP IV PRN (22:56)
[2016-12-16] VITALS (31 sets, daily range): BP systolic 111–172; BP diastolic 51–67; PULSE 60–80; RESP 16–66; TEMP 97.4–98; O2SAT 92–100
[2016-12-16] MEDS: HALOPERIDOL LACTATE 5 MG/ML AMP IV PRN (02:41)
[2016-12-16 06:03] LABS: POTASSIUM 4.6 MEQ/L (3.5-5.1)
[2016-12-16 06:06] LABS: BICARBONATE 34.7 MEQ/L (21.0-32.0)
[2016-12-16 06:29] LABS: AUTOMATED NEUTROPHIL # 8.4 TH/MM3 (1.8-7.7); BASOPHIL # 0.1 TH/MM3 (0-0.2); BASOPHIL % 0.8 % (0.0-2.0); EOSINOPHIL % 0.2 % (0.0-4.0); HEMATOCRIT 31.2 % (39.0-51.0); HEMO FLAGS DIFF FINAL; LYMPH % 8.8 % (9.0-44.0); LYMPHOCYTE # 0.9 TH/MM3 (1.0-4.8); MEAN CELL VOLUME 99.4 FL (80.0-100.0); MEAN CORPUSCULAR HEMOGLOBIN 31.5 PG (27.0-34.0); MEAN CORPUSCULAR HGB CONC 31.7 % (32.0-36.0); MONO % 4.9 % (0.0-8.0); NEUT % 85.3 % (16.0-70.0); PLATELET COUNT 209 TH/MM3 (150-450); RED BLOOD COUNT 3.14 MIL/MM3 (4.50-5.90); RED CELL DISTRIBUTION WIDTH 15.3 % (11.6-17.2); WHITE BLOOD COUNT 9.9 TH/MM3 (4.0-11.0)
[2016-12-16] MEDS: CAPTOPRIL 25 MG TAB PO SCH ×3 (06:39→21:37)
[2016-12-16 06:46] LABS: APTT (PATIENT) 64.8 SEC (24.3-30.1); INTERNATIONAL NORMALIZED RATIO 2.1 RATIO; PROTHROMBIN TIME - PATIENT 23.7 SEC (9.8-11.6)
--- NOTE | 2016-12-16 08:53 | HHI.PR ---
Subjective Remarks Follow-up respiratory failure, hypernatremia. RN states patient required a dose of Fentanyl and Haldol last night for agitation. She states the night RN stated patient had wheezing and rhonchi, but she states that is not apparent this morning. Objective Vitals Vital Signs Date Time Temp Pulse Resp B/P Pulse Ox O2 Delivery O2 Flow Rate FiO2 12/16/16 08:00 76 18 120/57 95 12/16/16 07:00 97.8 70 16 142/56 100 12/16/16 06:00 80 19 162/51 100 12/16/16 06:00 80 12/16/16 05:00 76 17 121/58 96 12/16/16 04:25 95 40 12/16/16 04:00 80 12/16/16 04:00 97.5 80 19 137/52 94 12/16/16 04:00 40 12/16/16 03:00 78 24 111/52 92 12/16/16 02:00 76 12/16/16 02:00 76 22 133/57 93 12/16/16 01:29 98 40 12/16/16 01:00 78 18 131/58 96 12/16/16 00:00 40 12/16/16 00:00 98.0 78 24 150/65 100 12/16/16 00:00 78 12/15/16 23:00 84 27 138/60 96 12/15/16 22:26 96 40 12/15/16 22:21 76 24 168/84 96 12/15/16 22:00 80 12/15/16 22:00 40 12/15/16 21:58 82 26 182/76 95 12/15/16 21:00 90 24 169/77 93 12/15/16 20:35 86 24 179/77 99 12/15/16 20:20 99 40 12/15/16 20:20 40 12/15/16 20:20 40 12/15/16 20:00 82 12/15/16 20:00 40 12/15/16 19:47 98.4 80 26 173/70 99 12/15/16 19:17 100 40 12/15/16 19:00 74 26 199/70 100 12/15/16 18:00 72 69 166/93 98 12/15/16 17:00 82 68 180/59 97 12/15/16 16:54 97 40 4/23/17 16:00 74 41 93 12/15/16 15:00 98.0 84 77 97 12/15/16 14:41 100 40 12/15/16 14:00 76 47 194/75 97 12/15/16 13:00 72 49 133/73 98 12/15/16 12:00 70 45 160/63 97 12/15/16 11:18 100 40 12/15/16 11:00 72 58 147/59 97 12/15/16 10:00 66 62 143/66 97 12/15/16 09:00 76 64 148/62 100 I/O 12/15/16 12/15/16 12/15/16 12/16/16 12/16/16 12/16/16 07:00 15:00 23:00 07:00 15:00 23:00 Intake Total 2060 ml 829 ml 600 ml 615 ml Output Total 650 ml 700 ml 400 ml 250 ml Balance 1410 ml 129 ml 200 ml 365 ml IV Total 840 ml 79 ml 140 ml 75 ml Tube Feeding 1060 ml 550 ml 360 ml 480 ml Other 160 ml 200 ml 100 ml 60 ml Output Urine Total 650 ml 700 ml 400 ml 250 ml # Bowel Movements 0 1 1 0 Result Diagram: 12/16/1652912/16/16529 Objective Remarks GENERAL: Elderly patient in no apparent distress. HEAD: Atraumatic. Normocephalic. CARDIOVASCULAR: HR 70 bpm with irregular rhythm. RESPIRATORY: No accessory muscle use. CTAB. On CPAP. GASTROINTESTINAL: Abdomen soft, non-tender, non-distended. MUSCULOSKELETAL: Legs appear wasted. NEUROLOGICAL: Awake and alert, but does not respond verbally. Procedures Endotracheal intubation 11/08/16 central line Right IJ 11/08/16 IR drainage/chest tube placement, right pleural effusion, 1500 cc removed Extubated 11/18/16. Left thoracentesis 11/17/16, pigtail chest tube 11/19/16 Reintubated 11/25/16. Percutaneous tracheostomy 12/02/16. PEG tube placement 12/02/16. Urinary Catheter: Yes Assessment to: Continue Vital insert reason: Prolonged Immobilization Date of Insertion: Nov 08, 2016 Vascular Central Line Catheter: No A/P Problem List: (1) Acute respiratory failure with hypoxia and hypercapnia ICD Code: J96.01 Status: Acute (2) Pleural effusion, right ICD Code: J90 Status: Acute (3) Dyspnea ICD Code: R06.00 Status: Acute (4) Pulmonary artery hypertension ICD Code: I27.2 Status: Acute (5) Deep venous thrombosis of both upper extremities ICD Code: I82.623 Status: Acute Assessment and Plan 81 year old male with recurrent pleural effusion in respiratory failure on ventilator with: Metabolic encephalopathy/Agitated delirium/mild dementia/CO2 narcosis/myoclonus: -IV sedation discontinued 12/05. Use Ativan PRN for breakthrough seizures / myoclonus -EEG negative 11/10/15, 11/11/16 (moderate to severe encephalopathy, no seizure) -CT of the brain 11/09 without acute abnormality. 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 -Continue Keppra 500 mg by mouth twice a day Acute hypercarbic and hypoxic respiratory failure/Recurrent right pleural effusion/COPD exacerbation: -s/p chest tube placement/drainage R pleural effusion -Moderate left pneumothorax-resolved -Small right pneumothorax-resolved -S/p thoracentesis for large hemorrhagic left pleural effusion -Currently with tracheostomy on ventilator. Continue with vent support keep oxygen sat >92% -Bronchodilators, pulm toilet, trach care -Continue prednisone 10 mg po bid -Pulmonology following -WBC improved to 9.9 today. HCAP: -Staph aureus in sputum 11/12 and 11/26 -Bronchial washings 12/02 with staph aureus and pseudo fluorescens/[place] -11/26 Sputum cx : Staph Aureus -S/p Cefepime and Zithromax 11/08-11/13, Rocephin 11/15-11/18, and resumption Rocephin for MSSA pneumonia on 11/26- 12/05 -S/p Tobramycin nebs till 12/12 per ID Micrococcus bacteremia: 08/28, not clinically significant per ID. -Monitor for fevers, leukocytosis. Remains afebrile. Severe pulmonary hypertension/A.Fib RVR/HTN/TR: -Echo 11/19/16 with EF 50-55%, moderate to severe to respiratory regurgitation and PA peak pressure of 47 mmHg previously 85 on 10/08/16 Echo. -Continue Captopril and Atenolol. Amlodipine 5 mg daily started on 12/14. BP improved. -Keep MAP > 65mmHg -Continue hydralazine and labetalol as needed as indicated. DVT: 12/04 B/L Doppler US performed. Nonocclusive thrombus in right jugular and brachial vein and occlusive thrombus in right cephalic vein midarm to wrist. Nonocclusive thrombus in left axillary and brachial veins and superficial thrombus in the left cephalic vein throughout the whole arm patchy occlusive and nonocclusive. -On heparin drip; Coumadin resumed on 12/06. Monitor PT/INR. Pharmacy to dose Coumadin, monitor INR. INR 2.1 today. Discontinue heparin and continue Coumadin. Hypernatremia: Resolved. Na 140 s/p D5W. -Monitor renal function -Monitor intake and output -Continue Lasix -Monitor BMP Pre-renal azotemia: BUN improved to 30. Cr normal. -Monitor BMP Acute protein calorie malnutritionsevere -Glucerna 1.5 @ goal rate 60ml/hr, no residuals noted -PEG tube placement- 12/02. Monitor site. -Bowel regimen Elevated LFTs: generally improved although still elevated. -Continue to monitor -If patient continues to have abdominal pain, consider imaging. Pain is non- specific. Thrombocytopenia: Resolved Anemia: chronic, stable. Hemoglobin today 9.9. Monitor. Hyperglycemia due to critical illness: Resolved -SSI discontinued GI Prophylaxis: Protonix 40 mg IV every 24 hours DVT prophylaxis: On anticoagulation. Written by Denise Sparks PA-C acting as scribe for Dr. Reyez on 12/16/16 at 0810. This note was transcribed by scribe Denise Sparks PA-C. I, Dr. Poli Reyez personally performed the history, physical exam, and medical decision making; and confirmed the accuracy of the information in the transcribed note. Authenticated by Dr. Poli Reyez on 12/16/16 at 15:12. Discharge Planning Palliative care is following. [facility] however awaiting clearance by [employer]. No new updates since 12/10. Problem Qualifiers (1) Dyspnea: Qualified Code: R06.02 - Shortness of breath Denise Sparks Dec 16, 2016 08:53 Poli Reyez MD Dec 16, 2016 15:12
[2016-12-16] MEDS: SENNOSIDES SYRUP 8.8 MG/5 ML CUP PO SCH (09:00)
[2016-12-16] MEDS: POLYETHYLENE GLYCOL 17 GM PKG PO SCH (09:00)
[2016-12-16] MEDS: DOCUSATE SODIUM 100 MG/10 ML UDC PO SCH ×2 (09:00→21:37)
[2016-12-16] MEDS: ATENOLOL 50 MG TAB PO SCH ×2 (09:08→21:37)
[2016-12-16] MEDS: levETIRAcetam 500 MG/5 ML UDC PO SCH ×2 (09:08→21:36)
[2016-12-16] MEDS: predniSONE 10 MG TAB PO SCH ×2 (09:08→21:38)
[2016-12-16] MEDS: FUROSEMIDE 20 MG TAB PO SCH (09:08)
[2016-12-16] MEDS: amLODIPine BESYLATE 5 MG TAB PO SCH (09:08)
[2016-12-16] MEDS: MUPIROCIN 2% OINT 22 GM TUBE TOPICAL SCH ×2 (09:09→21:38)
[2016-12-16] MEDS: SODIUM CHLORIDE FLUSH BID IV FLUSH SCH ×2 (09:09→21:39)
[2016-12-16] MEDS: CHLORHEXIDINE 0.12% (ORAL KIT) 15 ML CUP MT SCH ×2 (09:11→20:00)
[2016-12-16] MEDS: WARFARIN SOD 10 MG TAB PO SCH (19:15)
[2016-12-17] VITALS (21 sets, daily range): BP systolic 128–176; BP diastolic 54–78; PULSE 58–78; RESP 21–53; TEMP 97.4–97.8; O2SAT 93–100
[2016-12-17] MEDS: CAPTOPRIL 25 MG TAB PO SCH ×2 (05:04→14:09)
[2016-12-17] MEDS: DOCUSATE SODIUM 100 MG/10 ML UDC PO SCH (08:00)
[2016-12-17] MEDS: MUPIROCIN 2% OINT 22 GM TUBE TOPICAL SCH (08:00)
[2016-12-17] MEDS: amLODIPine BESYLATE 5 MG TAB PO SCH (08:00)
[2016-12-17] MEDS: FUROSEMIDE 20 MG TAB PO SCH (08:00)
[2016-12-17] MEDS: levETIRAcetam 500 MG/5 ML UDC PO SCH (08:00)
[2016-12-17] MEDS: predniSONE 10 MG TAB PO SCH (08:00)
[2016-12-17] MEDS: ATENOLOL 50 MG TAB PO SCH (08:00)
[2016-12-17] MEDS: SODIUM CHLORIDE FLUSH BID IV FLUSH SCH (08:01)
[2016-12-17] MEDS: POLYETHYLENE GLYCOL 17 GM PKG PO SCH (08:01)
[2016-12-17] MEDS: CHLORHEXIDINE 0.12% (ORAL KIT) 15 ML CUP MT SCH (08:02)
[2016-12-17] MEDS: SENNOSIDES SYRUP 8.8 MG/5 ML CUP PO SCH (08:27)
[2016-12-17 11:29] LABS: BASOPHIL # 0.1 TH/MM3 (0-0.2); BASOPHIL % 0.9 % (0.0-2.0); EOSINOPHIL # 0.1 TH/MM3 (0-0.4); EOSINOPHIL % 0.4 % (0.0-4.0); HEMATOCRIT 32.1 % (39.0-51.0); LYMPH % 4.6 % (9.0-44.0); LYMPHOCYTE # 0.6 TH/MM3 (1.0-4.8); MEAN CELL VOLUME 100.1 FL (80.0-100.0); MEAN CORPUSCULAR HEMOGLOBIN 33.2 PG (27.0-34.0); MEAN CORPUSCULAR HGB CONC 33.1 % (32.0-36.0); MONO % 6.3 % (0.0-8.0); NEUT % 87.8 % (16.0-70.0); PLATELET COUNT 178 TH/MM3 (150-450); RED BLOOD COUNT 3.21 MIL/MM3 (4.50-5.90); RED CELL DISTRIBUTION WIDTH 15.8 % (11.6-17.2); WHITE BLOOD COUNT 12.6 TH/MM3 (4.0-11.0)
[2016-12-17 11:31] LABS: HEMO FLAGS DIFF FINAL
[2016-12-17 11:39] LABS: POTASSIUM 4.7 MEQ/L (3.5-5.1)
[2016-12-17 11:46] LABS: BICARBONATE 33.9 MEQ/L (21.0-32.0)
[2016-12-17 11:48] LABS: INTERNATIONAL NORMALIZED RATIO 2.2 RATIO; PROTHROMBIN TIME - PATIENT 25.5 SEC (9.8-11.6)
--- NOTE | 2016-12-17 11:53 | HHI.PR ---
Subjective Remarks Follow-up respiratory failure. No events reported overnight by nursing. Objective Vitals Vital Signs Date Time Temp Pulse Resp B/P Pulse Ox O2 Delivery O2 Flow Rate FiO2 12/17/16 10:31 94 40 12/17/16 08:00 76 36 148/59 100 12/17/16 07:43 96 40 12/17/16 07:00 97.7 78 25 151/65 95 12/17/16 06:05 20 12/17/16 06:00 69 12/17/16 06:00 70 21 130/55 99 12/17/16 05:19 95 40 12/17/16 05:00 76 24 164/78 99 12/17/16 04:00 97.8 76 22 142/55 95 12/17/16 04:00 40 12/17/16 04:00 58 12/17/16 03:00 70 36 142/59 95 12/17/16 02:00 66 50 142/62 98 12/17/16 02:00 69 12/17/16 01:18 99 40 12/17/16 01:00 64 38 155/76 100 12/17/16 00:00 62 12/17/16 00:00 40 12/17/16 00:00 64 25 150/67 97 12/16/16 23:00 68 19 155/57 100 12/16/16 22:29 94 40 12/16/16 22:00 78 66 114/55 94 12/16/16 22:00 62 12/16/16 21:00 68 50 144/53 97 12/16/16 20:09 96 40 12/16/16 20:00 62 12/16/16 20:00 66 26 140/53 97 12/16/16 20:00 40 12/16/16 20:00 62 12/16/16 19:00 70 21 152/66 98 12/16/16 18:00 62 12/16/16 18:00 62 21 156/56 97 12/16/16 17:00 80 25 153/67 99 12/16/16 16:50 93 40 12/16/16 16:00 40 12/16/16 16:00 74 12/16/16 16:00 97.5 74 25 166/65 92 12/16/16 15:00 72 28 121/54 99 12/16/16 14:00 70 12/16/16 14:00 70 27 129/54 98 12/16/16 13:50 94 40 12/16/16 13:00 66 26 137/66 92 12/16/16 12:00 97.4 76 21 117/53 94 12/16/16 12:00 60 12/16/16 12:00 40 I/O 12/16/16 12/16/16 12/16/16 12/17/16 12/17/16 12/17/16 07:00 15:00 23:00 07:00 15:00 23:00 Intake Total 615 ml 790 ml 353 ml 576 ml Output Total 250 ml 450 ml 300 ml 400 ml Balance 365 ml 340 ml 53 ml 176 ml IV Total 75 ml 10 ml Tube Feeding 480 ml 660 ml 353 ml 456 ml Other 60 ml 120 ml 120 ml Output Urine Total 250 ml 450 ml 300 ml 400 ml # Bowel Movements 0 1 Result Diagram: 12/17/16 1100 12/17/16 1100 Imaging Last Impressions Chest X-Ray 12/11/16 0000 Signed Impressions: Service Date/Time: Sunday, December 11, 2016 19:31 - CONCLUSION: No pneumothorax following left thoracostomy tube removal. Unchanged cardiomegaly with bilateral pleural effusions and bibasilar infiltrates. Charbel Fuchs Jr., MD Upper Extremity Ultrasound 12/04/16 0000 Signed Impressions: Service Date/Time: Sunday, December 04, 2016 17:25 - CONCLUSION: Bilateral upper extremity DVT as above. Dhruv Foster MD Chest CT 11/20/16 0000 Signed Impressions: Service Date/Time: October 09:37 - CONCLUSION: 1. Left pneumothorax without tension 2. Small loculated effusion medial right base 3. Pericardial effusion as above Jimi Chavez MD Liver Ultrasound 11/17/16 0000 Signed Impressions: Service Date/Time: Thursday, November 17, 2016 15:58 - CONCLUSION: 1. Increased liver echogenicity characteristic of mild fatty infiltration or hepatocellular disease. 2. Trace free fluid in the abdomen. Pleural effusions. Mild gallbladder wall thickening. Chaka Campos MD Brain MRI 11/11/16 0000 Signed Impressions: Service Date/Time: Friday, November 11, 2016 12:53 - CONCLUSION: 1. 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 2. 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 The others would be consistent with punctate, remote areas of hemorrhage suggesting possibility of amyloid. Eitan Mendoza MD Head CT 11/09/16 0000 Signed Impressions: Service Date/Time: Wednesday, November 09, 2016 10:29 - CONCLUSION: Stable CT scan of the brain. Pradeep Rodriguez MD Chest Tube Insertion 11/08/16 0000 Signed Impressions: Service Date/Time: Tuesday, November 08, 2016 12:46 - CONCLUSION: Uncomplicated right chest tube placement as above. 1500 cc of fluid removed and sent for culture. Post CT scan reveals a large. pleural rind . The right lung may well not reexpanded. A.m. chest x-ray is pending. Cultures pending. Kun Mendoza MD FACR CT Angiography 11/07/16 0000 Signed Impressions: Service Date/Time: October 20:40 - CONCLUSION: 1. No pulmonary embolus. 2. Marked cardiac enlargement, especially the atria. 3. Bilateral effusions and atelectasis about the same on the left and considerably worse on the right. Right pneumothorax seen previously has resolved. Dhruv Foster MD Objective Remarks General: Elderly male in no acute distress. On ventilator per tracheostomy. Heart: Regular rate and rhythm. No murmur. Lungs: Coarse breath sounds bilaterally. Breathing is nonlabored. Abdomen: Soft, nontender, nondistended. Extremities: No lower extremity edema. Venous stasis changes bilaterally. Psych: Sleeping. Procedures Endotracheal intubation 11/08/16 central line Right IJ 11/08/16 IR drainage/chest tube placement, right pleural effusion, 1500 cc removed Extubated 11/18/16. Left thoracentesis 11/17/16, pigtail chest tube 11/19/16 Reintubated 11/25/16. Percutaneous tracheostomy 12/02/16. PEG tube placement 12/02/16. Urinary Catheter: Yes Assessment to: Continue Vital insert reason: Prolonged Immobilization Date of Insertion: Nov 08, 2016 Vascular Central Line Catheter: No A/P Problem List: (1) Acute respiratory failure with hypoxia and hypercapnia ICD Code: J96.01 Status: Acute (2) Pleural effusion, right ICD Code: J90 Status: Acute (3) Dyspnea ICD Code: R06.00 Status: Acute (4) Pulmonary artery hypertension ICD Code: I27.2 Status: Acute (5) Deep venous thrombosis of both upper extremities ICD Code: I82.623 Status: Acute Assessment and Plan 1. Acute hypercarbic and hypoxic respiratory failure, recurrent right pleural effusion, COPD exacerbation: Status post chest tube placement with drainage of right pleural effusion. Moderate left pneumothorax and small right pneumothorax have both resolved. Status post thoracentesis for large hemorrhagic left pleural effusion. Continue mechanical ventilation via tracheostomy. Management of ventilator by pulmonology. Continue bronchodilators, pulmonary toilet, trach care. Continue prednisone. 2. Metabolic encephalopathy, mild dementia: IV sedation discontinued 12/05/16. Ativan as needed for breakthrough seizures, myoclonus. EEG on 11/11/16 showed moderate to severe encephalopathy. Continue Keppra. 3. Healthcare associated pneumonia: Sputum cultures positive for staph aureus. Completed course of cefepime, Zithromax, Rocephin. Completed course of tobramycin nebulizer. 4. Micrococcus bacteremia: Not clinically significant per infectious disease. Monitor for fevers, leukocytosis. 5. Severe pulmonary hypertension, A. fib with RVR, hypertension: Continue captopril, atenolol, amlodipine. Echocardiogram showed ejection fraction 50-55%. 6. DVT, left upper extremity: INR is pending today. Continue Coumadin. Heparin drip discontinued. 7. Hypernatremia: Resolved. 8. Prerenal azotemia: Stable. 9. Severe acute protein calorie malnutrition: Continue tube feeds with Glucerna 1.5 at goal rate 60 miles per hour. PEG tube placed 12/02/16. 10. Elevated LFTs: Improved overall. Alkaline phosphatase remains elevated. 11. Thrombocytopenia: Resolved. 12. Anemia: Chronic, stable. 13. Hyperglycemia of critical illness: Resolved. 14. GI prophylaxis: Protonix. Discharge Planning Palliative care is following. [facility] We are awaiting insurance approval. Problem Qualifiers (1) Dyspnea: Qualified Code: R06.02 - Shortness of breath Poli Reyez MD Dec 17, 2016 11:53
[2016-12-17] MEDS ORDERED: PRED10 PO (13:45)
[2016-12-17] MEDS ORDERED: COUM10TA PO (13:45)
[2016-12-17] MEDS ORDERED: AMLO5 PO (13:45)
[2016-12-17] MEDS ORDERED: CAPT25TA2 PO (13:45)
[2016-12-17] MEDS ORDERED: LEVE500S PO (13:45)
--- NOTE | 2016-12-17 13:45 | HHI.DCPOC ---
Discharge Care Plan Diagnosis: (1) Deep venous thrombosis of both upper extremities (2) Debility (3) Agitation (4) Confusion (5) Protein-calorie malnutrition, severe (6) Chronic atrial fibrillation (7) Pneumonia (8) Hypertension (9) Encephalopathy (10) Pleural effusion (11) Pneumothorax (12) Congestive heart failure (13) COPD (chronic obstructive pulmonary disease) (14) Acute respiratory failure with hypoxia and hypercapnia Goals to Promote Your Health * To prevent worsening of your condition and complications * To maintain your health at the optimal level Directions to Meet Your Goals Take your medications as prescribed Follow your dietary instruction Follow activity as directed Keep your appointments as scheduled Take your immunizations and boosters as scheduled If your symptoms worsen call your PCP, if no PCP go to Urgent Care Center or Emergency Room Smoking is Dangerous to Your Health. Avoid second hand smoke Call the 24-hour hour crisis hotline for domestic abuse at Poli Reyez MD Dec 17, 2016 13:45
--- NOTE | 2016-12-17 13:48 | HHI.DS ---
Discharge Summary Admission Date Nov 07, 2016 at 22:01 Discharge Date: Dec 17, 2016 Admitting Diagnosis large right pleural effusion, hypoxia, pneumonia (1) Acute respiratory failure with hypoxia and hypercapnia ICD Code: J96.01 (2) Pleural effusion, right ICD Code: J90 (3) Dyspnea ICD Code: R06.00 (4) Pulmonary artery hypertension ICD Code: I27.2 (5) Deep venous thrombosis of both upper extremities ICD Code: I82.623 Procedures Endotracheal intubation 11/08/16 central line Right IJ 11/08/16 IR drainage/chest tube placement, right pleural effusion, 1500 cc removed Extubated 11/18/16. Left thoracentesis 11/17/16, pigtail chest tube 11/19/16 Reintubated 11/25/16. Percutaneous tracheostomy 12/02/16. PEG tube placement 12/02/16. Brief History - From Admission History from ER physician communication, review of medical records. Patient himself is quite drowsy at the time of my exam. He is only able to answer yes whenever I called his name and tried to wake him up by sternal rub. Per ER communication, patient was sent from [facility] because of progressive dyspnea. He was discharged from our hospital on July 20, 2017 after about 13 days of hospitalization. At that time, he was admitted for respiratory failure secondary to pleural effusions which are recurrent. He did undergo thoracocentesis with subsequent pneumothorax as a complication. He then also had pleurodesis done. Palliative care team was involved in his care during that hospitalization but it seems that from notes, patient's family members wanted aggressive care. Cardiothoracic surgeons have evaluated the patient at that time for possible decortication and thought that patient is not a candidate for any invasive procedures. As per retirement notes, patient was already on Levaquin at the nursing facility for pneumonia. The main complaint for reason for transfer per the notes is altered mentation as well. However apparently in the emergency room, patient was much more awake and alert. Patient ABGs that were done in ER reveals compensated chronic CO2 retention. This was on 6 L nasal cannula. Therefore they have decreased it down to 4 L nasal cannular. However upon my arrival, patient is quite lethargic. He was saturating 100% on FiO2 of 4 L nasal cannula. Otherwise, vitals remained stable. CBC/BMP: 12/17/16 1100 12/17/16 1100 Significant Findings Laboratory Tests Test 12/15/16 12/15/16 12/15/16 12/15/16 06:20 06:25 11:00 16:55 Carbon Dioxide Level 35.4 MEQ/L (21.0-32.0) Anion Gap 4 MEQ/L (5-15) Blood Urea Nitrogen 33 MG/DL (7-18) Creatinine 0.45 MG/DL (0.60-1.30) Random Glucose 116 MG/DL (74-106) Calcium Level 8.3 MG/DL (8.5-10.1) Prothrombin Time 22.3 SEC (9.8-11.6) Activated Partial 114.4 SEC 59.1 SEC 65.5 SEC Thromboplast Time (24.3-30.1) (24.3-30.1) (24.3-30.1) Test 12/16/16 12/17/16 05:30 11:00 Red Blood Count 3.14 MIL/MM3 3.21 MIL/MM3 (4.50-5.90) (4.50-5.90) Hemoglobin 9.9 GM/DL 10.6 GM/DL (13.0-17.0) (13.0-17.0) Hematocrit 31.2 % 32.1 % (39.0-51.0) (39.0-51.0) Mean Corpuscular Hemoglobin 31.7 % Concent (32.0-36.0) Neutrophils (%) (Auto) 85.3 % 87.8 % (16.0-70.0) (16.0-70.0) Lymphocytes (%) (Auto) 8.8 % 4.6 % (9.0-44.0) (9.0-44.0) Neutrophils # (Auto) 8.4 TH/MM3 11.0 TH/MM3 (1.8-7.7) (1.8-7.7) Lymphocytes # (Auto) 0.9 TH/MM3 0.6 TH/MM3 (1.0-4.8) (1.0-4.8) Prothrombin Time 23.7 SEC 25.5 SEC (9.8-11.6) (9.8-11.6) Activated Partial 64.8 SEC Thromboplast Time (24.3-30.1) Carbon Dioxide Level 34.7 MEQ/L 33.9 MEQ/L (21.0-32.0) (21.0-32.0) Anion Gap 4 MEQ/L (5-15) Blood Urea Nitrogen 30 MG/DL (7-18) 34 MG/DL (7-18) Creatinine 0.44 MG/DL 0.47 MG/DL (0.60-1.30) (0.60-1.30) Random Glucose 112 MG/DL 111 MG/DL (74-106) (74-106) White Blood Count 12.6 TH/MM3 (4.0-11.0) Mean Corpuscular Volume 100.1 FL (80.0-100.0) Imaging Last Impressions Chest X-Ray 12/11/16 0000 Signed Impressions: Service Date/Time: Sunday, December 11, 2016 19:31 - CONCLUSION: No pneumothorax following left thoracostomy tube removal. Unchanged cardiomegaly with bilateral pleural effusions and bibasilar infiltrates. Charbel Fuchs Jr., MD Upper Extremity Ultrasound 12/04/16 0000 Signed Impressions: Service Date/Time: Sunday, December 04, 2016 17:25 - CONCLUSION: Bilateral upper extremity DVT as above. Dhruv Foster MD Chest CT 11/20/16 0000 Signed Impressions: Service Date/Time: October 09:37 - CONCLUSION: 1. Left pneumothorax without tension 2. Small loculated effusion medial right base 3. Pericardial effusion as above Jimi Chavez MD Liver Ultrasound 11/17/16 0000 Signed Impressions: Service Date/Time: Thursday, November 17, 2016 15:58 - CONCLUSION: 1. Increased liver echogenicity characteristic of mild fatty infiltration or hepatocellular disease. 2. Trace free fluid in the abdomen. Pleural effusions. Mild gallbladder wall thickening. Chaka Campos MD Brain MRI 11/11/16 0000 Signed Impressions: Service Date/Time: Friday, November 11, 2016 12:53 - CONCLUSION: 1. 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 2. 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 The others would be consistent with punctate, remote areas of hemorrhage suggesting possibility of amyloid. Eitan Mendoza MD Head CT 11/09/16 0000 Signed Impressions: Service Date/Time: Wednesday, November 09, 2016 10:29 - CONCLUSION: Stable CT scan of the brain. Pradeep Rodriguez MD Chest Tube Insertion 11/08/16 0000 Signed Impressions: Service Date/Time: Tuesday, November 08, 2016 12:46 - CONCLUSION: Uncomplicated right chest tube placement as above. 1500 cc of fluid removed and sent for culture. Post CT scan reveals a large. pleural rind . The right lung may well not reexpanded. A.m. chest x-ray is pending. Cultures pending. Kun Mendoza MD FACR CT Angiography 11/07/16 0000 Signed Impressions: Service Date/Time: October 20:40 - CONCLUSION: 1. No pulmonary embolus. 2. Marked cardiac enlargement, especially the atria. 3. Bilateral effusions and atelectasis about the same on the left and considerably worse on the right. Right pneumothorax seen previously has resolved. Dhruv Foster MD PE at Discharge General: Elderly male in no acute distress. On ventilator per tracheostomy. Heart: Regular rate and rhythm. No murmur. Lungs: Coarse breath sounds bilaterally. Breathing is nonlabored. Abdomen: Soft, nontender, nondistended. Extremities: No lower extremity edema. Venous stasis changes bilaterally. Psych: Sleeping. Hospital Course The patient was admitted for management of acute hypoxemic and hypercapnic respiratory failure. He was noted to have large bilateral pleural effusions, right greater than left. He was placed on antibiotics for healthcare associated pneumonia. Pulmonology was consulted. Critical care was consulted. The patient was intubated and placed on mechanical ventilation. Neurology was consulted for evaluation of seizures. He was started on Dilantin, which was eventually changed to Keppra. Palliative care was consulted. Family requested that the goals remain aggressive. The patient failed multiple trials of weaning off the ventilator. Left pigtail chest tube was placed on 11/19/16. Patient was noted to have a left-sided pneumothorax on chest CT. Ultrasound showed occlusive DVT in the left cephalic vein with scattered clots in the left brachial and left axillary veins. He was started on heparin drip and Coumadin to bridge to a therapeutic INR. Gen. surgery was consulted for tracheostomy. PEG tube was placed. The patient was started on tube feeds. The patient was accepted at a long-term acute care facility, but this was denied by the patient's insurance. He was transferred to the [place] ICU. After appeal by the family, insurance company [facility] Pt Condition on Discharge: Stable Discharge Disposition: Trnsfr to Other Facility Discharge Time: > 30 minutes Discharge Instructions DIET: Follow Instructions for: On Tube Feeding Speech Therapy-Diet Recommends: Soft Additional Diet Instructions: Glucerna 1.5 at 60ml/hr Activities you can perform: Continue Bedrest Follow up Referrals: Gastroenterology - 2 Weeks PCP Follow-up - 1 Week Pulmonology - 1 Week New Medications: Amlodipine (Norvasc) 5 Mg Tab 5 MG PO DAILY Blood Pressure Management #30 Ref 0 TAB Captopril (Captopril) 25 Mg Tab 25 MG PO Q8HR Blood Pressure Management #90 TAB Levetiracetam Liq (Keppra Liq) 500 Mg/5 Ml Soln 500 MG PO BID Seizure Control #60 ML Prednisone (Prednisone) 10 Mg Tab 10 MG PO BID Inflammation #60 TAB Warfarin (Coumadin) 10 Mg Tab 10 MG PO DAILY@16 dvt #30 TAB Continued Medications: Atenolol (Atenolol) 50 Mg Tab 50 MG PO BID Blood Pressure Management #14 Ref 0 TAB Furosemide (Furosemide) 20 Mg Tab 20 MG PO DAILY #30 Ref 0 TAB Potassium Chloride ER (Klor-Con 10) 10 Meq Tab 10 MEQ PO DAILY Electrolyte Replacement #30 Ref 0 TAB Discontinued Medications: Alprazolam (Xanax) 0.25 Mg Tab 0.25 MG PO Q6H PRN anxiety #15 TAB Captopril (Captopril) 50 Mg Tab 50 MG PO TIDAC Take 1 hour before meals. #90 Ref 0 TAB Ciclopirox (Nail Lacquer) Topical (Ciclopirox (Nail Lacquer) Topical) 8% Soln 1 APPLIC TOPICAL HS FUNGAL INFECTION #1 Ref 0 BOTTLE Ginkgo Biloba (Ginkgo Biloba) 120 Mg Tab Milk Thistle (Milk Thistle) 140 Mg Cap BID #2 Cromwell-3 Fatty Acids (Cromwell 3 1000 mg) 1 Cap Cap Warfarin (Warfarin) 5 Mg Tab 5 MG PO DAILY Blood Clot Prevention #30 Ref 0 TAB Poli Reyez MD Dec 17, 2016 13:48
== END 2016-12-17 15:10 | DRG 4 ==
LOC: NEPA 19:51 → NEDA 22:01 → HCIS 23:52 → HIMW 11-08 03:45 → PHICU 12-09 20:14
PROVIDERS: ADMIT Internal Medicine; ATTEND Family Medicine
PROC: 0BH17EZ Insertion of Endotracheal Airway into Trachea, Via Natural or Artificial Opening (ICD-10-PCS; 2016-11-08)
PROC: 5A1955Z Respiratory Ventilation, Greater than 96 Consecutive Hours (ICD-10-PCS; 2016-11-08)
PROC: 5A09357 Assistance with Respiratory Ventilation, Less than 24 Consecutive Hours, Continuous Positive Airway Pressure (ICD-10-PCS; 2016-11-08)
PROC: 02HV33Z Insertion of Infusion Device into Superior Vena Cava, Percutaneous Approach (ICD-10-PCS; 2016-11-08)
PROC: 0W9930Z Drainage of Right Pleural Cavity with Drainage Device, Percutaneous Approach (ICD-10-PCS; 2016-11-08)
PROC: 0W9B3ZX Drainage of Left Pleural Cavity, Percutaneous Approach, Diagnostic (ICD-10-PCS; 2016-11-17)
PROC: 0W9B30Z Drainage of Left Pleural Cavity with Drainage Device, Percutaneous Approach (ICD-10-PCS; 2016-11-19)
PROC: 0W9B30Z Drainage of Left Pleural Cavity with Drainage Device, Percutaneous Approach (ICD-10-PCS; 2016-11-21)
PROC: 0BH17EZ Insertion of Endotracheal Airway into Trachea, Via Natural or Artificial Opening (ICD-10-PCS; 2016-11-25)
PROC: 5A1955Z Respiratory Ventilation, Greater than 96 Consecutive Hours (ICD-10-PCS; 2016-11-25)
PROC: 0BC48ZZ Extirpation of Matter from Right Upper Lobe Bronchus, Via Natural or Artificial Opening Endoscopic (ICD-10-PCS; 2016-11-25)
PROC: 0BC58ZZ Extirpation of Matter from Right Middle Lobe Bronchus, Via Natural or Artificial Opening Endoscopic (ICD-10-PCS; 2016-11-25)
PROC: 0B968ZX Drainage of Right Lower Lobe Bronchus, Via Natural or Artificial Opening Endoscopic, Diagnostic (ICD-10-PCS; 2016-11-25)
PROC: 0BJ08ZZ Inspection of Tracheobronchial Tree, Via Natural or Artificial Opening Endoscopic (ICD-10-PCS; 2016-12-02)
PROC: 0DH63UZ Insertion of Feeding Device into Stomach, Percutaneous Approach (ICD-10-PCS; 2016-12-02)
PROC: 0DB68ZX Excision of Stomach, Via Natural or Artificial Opening Endoscopic, Diagnostic (ICD-10-PCS; 2016-12-02)
PROC: 0B113F4 Bypass Trachea to Cutaneous with Tracheostomy Device, Percutaneous Approach (ICD-10-PCS; principal; 2016-12-02 12:00)
PROC: 5A1955Z Respiratory Ventilation, Greater than 96 Consecutive Hours (ICD-10-PCS; 2016-12-02 12:00)
DX: J96.02 Acute respiratory failure with hypercapnia (principal); J15.211 Pneumonia due to Methicillin susceptible Staphylococcus aureus; E43 Unspecified severe protein-calorie malnutrition; G93.41 Metabolic encephalopathy; E87.4 Mixed disorder of acid-base balance; J90 Pleural effusion, not elsewhere classified; E87.0 Hyperosmolality and hypernatremia; I11.0 Hypertensive heart disease with heart failure; I50.32 Chronic diastolic (congestive) heart failure; R78.81 Bacteremia; J44.0 Chronic obstructive pulmonary disease with (acute) lower respiratory infection; Z68.1 Body mass index [BMI] 19.9 or less, adult; J44.1 Chronic obstructive pulmonary disease with (acute) exacerbation; I82.C11 Acute embolism and thrombosis of right internal jugular vein; I82.613 Acute embolism and thrombosis of superficial veins of upper extremity, bilateral; J93.9 Pneumothorax, unspecified; T17.890A Other foreign object in other parts of respiratory tract causing asphyxiation, initial encounter; I82.623 Acute embolism and thrombosis of deep veins of upper extremity, bilateral; I48.2 Chronic atrial fibrillation; I27.2 Other secondary pulmonary hypertension; J96.01 Acute respiratory failure with hypoxia; I27.81 Cor pulmonale (chronic); I07.1 Rheumatic tricuspid insufficiency; G25.3 Myoclonus; R56.9 Unspecified convulsions; D64.9 Anemia, unspecified; D69.6 Thrombocytopenia, unspecified; E78.5 Hyperlipidemia, unspecified; F03.90 Unspecified dementia, unspecified severity, without behavioral disturbance, psychotic disturbance, mood disturbance, and anxiety; Z99.81 Dependence on supplemental oxygen; R13.10 Dysphagia, unspecified; K29.50 Unspecified chronic gastritis without bleeding; Y95 Nosocomial condition; R73.9 Hyperglycemia, unspecified; B96.89 Other specified bacterial agents as the cause of diseases classified elsewhere; B96.5 Pseudomonas (aeruginosa) (mallei) (pseudomallei) as the cause of diseases classified elsewhere; Z86.73 Personal history of transient ischemic attack (TIA), and cerebral infarction without residual deficits; Z85.828 Personal history of other malignant neoplasm of skin; Z87.891 Personal history of nicotine dependence
CPT/HCPCS: 31500; 31624; 32551; 32554; 32557; 36430; 36556; 36600; 70450; 70553; 71010; 71250; 71275; 76705; 76937; 80048; 80053; 80185; 80202; 81001; 82140; 82150; 82550; 82565; 82805; 82945; 82948; 83605; 83615; 83735; 83880; 83986; 84100; 84132; 84157; 84443; 84484; 85007; 85025; 85027; 85610; 85730; 86403; 86900; 86901; 86927; 87015; 87040; 87070; 87077; 87102; 87116; 87147; 87186; 87205; 87206; 87493; 87641; 88112; 88305; 88312; 89051; 93005; 93308; 93970; 93971; 94002; 94003; 94640; 94664; 94667; 95819; 96365; 96367; A9579; C1729; C9399; J0360; J0456; J0692; J0696; J1120; J1165; J1630; J1644; J1940; J1956; J2060; J2250; J2270; J2920; J2930; J3010; J3370; J3475; J3480; J7030; J7042; J7050; J7070; J7512; J7608; J7685; P9017; P9045; Q9967